=== PATIENT | female | born 1965 | race Caucasian/White ===

== ENCOUNTER 2024-06-29 12:32 | Outpatient (POV) | payer MEDICARE, SELFPAY ==
[2024-06-29 12:55] VITALS: BP 115/60; PULSE 75; RESP 18; O2SAT 99; BMI 28.3
--- NOTE | 2024-06-29 14:09 | EXP.PAIN.OV ---
HPI Data of Consult Patient: new to practice Consult date: 06/29/24 Requesting Physician: Sandra Gauthier APRN Primary Care Provider: Marge Woodard MD Consult Narrative Reason for consult: Left ankle/foot pain History of present illness: Ms. Antoine is a 59 year old female who presents today as a new patient. She is a referral from Marge Ba's office. Today she rates her pain a 7 out of 10. Patient states this pain has been going on for about a year and a half related to an injury that she suffered. Patient states that she has a history of seizures and during one of her seizures she ended up having a fall that fracture at the left ankle. She states that she ended up having to have surgery and had hardware placed however it never felt right from that time on. Patient states that her foot was completely numb. She states over time it really seem that the hardware was very painful as well as that it was actually working its way outward. She states about 7 to 8 months ago she ended up having the hardware removed and it is just now all officially closed up on the lateral side. Patient states the pain is a constant cold numbing shocklike sensation that affects her ankle and her entire foot. She states that it is completely numb and that the pain is affecting every activity of daily living such as cooking and cleaning as well as sleeping. Patient states she has tried oral medications, heat and ice, topicals with no additional relief. Patient does not want to have any additional surgery related to this if any way possible. She denies any injection history. Patient states that she has had some physical therapy however it really made no difference. Patient is a type I diabetic. Patient has been taking pregabalin and states that she just had this increased to twice a day and it does at least help sleep a little bit better. Her Yazan has been reviewed and is appropriate. CC: Sandra Gauthier APRN [facility] Disclaimer: The information contained in this section may have been updated after the patient was seen, as this information can be updated by other users. Medical History (Updated 06/29/24 @ 14:13 by Sandra Gauthier APRN) Carpal tunnel syndrome HLD (hyperlipidemia) Vitamin D deficiency Bipolar disorder HTN (hypertension) Diabetes Mitral valve regurgitation Mitral valve disease Lung cancer CHF (congestive heart failure) Congestive cardiomyopathy Seizures Insomnia Anxiety Surgical History (Updated 06/29/24 @ 13:25 by Kathi Weaver RN) History of left knee replacement History of bronchoscopy H/O hernia repair H/O: hysterectomy History of bilateral fallopian tube excision History of ankle surgery Family History (Updated 06/29/24 @ 13:23 by Kathi Weaver RN) Other Alcoholism Anxiety Arthritis Bipolar disorder Bone cancer Cataracts, bilateral Depression GERD (gastroesophageal reflux disease) Gout Heart attack Hypertension Pulmonary emphysema Skin cancer Substance abuse Social History (Updated 06/29/24 @ 13:48 by Kathi Weaver RN) Smoking Status: Current every day smoker alcohol intake: never current occupational status: unemployed Travel in the last 8 weeks: None Contact w/someone who lives/traveled outside [place] past 30 days?: No Exposure to someone with infectious disease in past 14 days?: No Do you have a fever (greater than 100.4 F or 38 C)?: No Have you tested positive for COVID-19: No Exposed to someone with COVID-19 in past 14 days?: No Do you have a sore throat?: No Do you have a cough?: No Do you have any weakness?: No Are you experiencing any nausea/vomitting?: No Do you have any diarrhea?: No Are you experiencing any unusual bleeding?: No Do you have any muscle aches/pain?: No Do you have any abdominal pain?: No Are you experiencing loss of taste or smell?: No Review of Systems Review of Systems Review of systems:: pertinent systems reviewed and negative unless documented below Review of systems (narrative): Review of Systems: General: No recent weight changes, no fever, no sleep disturbances Respiratory: No cough, no shortness of air, no recurring pulmonary infections Cardiovascular/peripheral vascular: No chest pain, no palpitations, no edema, no shortness of breath Gastrointestinal: No new onset incontinence, normal bowel movements reported Genitourinary: No new onset incontinence Musculoskeletal: Left ankle/foot pain Psychiatric: [Normal mood/affect] Neurological: [Denies weakness in extremities], [denies balance issues] Meds Home Medications and Allergies New Prescriptions to Start Prescriptions: Allergies Allergy/AdvReac Type Severity Reaction Status Date / Time acetaminophen Allergy Rash Verified 06/29/24 14:11 hydrocodone Allergy Rash Verified 06/29/24 14:11 risperidone Allergy Unknown Verified 06/29/24 14:11 allergy reaction bupropion AdvReac Seizure Verified 06/29/24 14:11 venlafaxine AdvReac Seizure Verified 06/29/24 14:11 NIACIN Allergy Unknown Unknown Uncoded 06/29/24 14:11 allergy reaction SULFA (SULFONAMIDE) Allergy Unknown Unknown Uncoded 06/29/24 14:11 allergy reaction Objective Vital signs: Pulse Resp BP Pulse Ox O2 Del Method 75 18 115/60 99 Room Air 06/29/24 12:55 06/29/24 12:55 06/29/24 12:55 06/29/24 12:55 06/29/24 12:55 Narrative: Physical Exam: General: Alert and oriented x3, no acute distress, pleasant and cooperative Lungs: Respirations even and unlabored, symmetrical chest expansion Eyes: PERRL Musculoskeletal: Flexion and extension of left ankle somewhat guarded secondary to pain, [antalgic gait noted] decreased sensation to light touch and decreased reflexes Neurological: Speech clear, no gross sensory deficit Skin: Foot is cool to touch in comparison to the right foot Assessment and Plan *Assessment and plan (1) Left ankle pain: Status: Acute Category: Medical Code(s): M25.572 - Pain in left ankle and joints of left foot (2) Numbness of left foot: Status: Acute Category: Medical Code(s): R20.0 - Anesthesia of skin Plan Patient is experiencing significant pain in her left ankle and foot with limited range of motion. Patient did have decreased sensation light touch and decreased reflexes. Patient's left foot was also cooler in comparison to her right foot. Patient may have symptoms consistent with CRPS of the lower extremity related to an injury and then surgeries thereafter. I did discuss with patient that I do believe she would benefit from a posterior tibial nerve block on this joint. Risk and benefits were discussed with the patient and she would like to proceed forward with this plan of care. Patient has tried and failed conservative therapy including continued at home stretching exercise for longer than 12 weeks. I will also order the patient a compounded cream. Patient will be scheduled for a left posterior tibial nerve block. Patient has been instructed to contact the clinic with any concerns before the next appointment. Dr. Rosas has reviewed this note and agrees with this plan of care. This note was dictated using voice recognition software and make contain errors or omissions. All injections are used with Lidocaine, Bupivacaine and Depo Medrol. Occasionally urine drug screen is needed to verify patient's compliance with our office pain contract. This is ordered based off specific treatments related to chronic pain with the potential to abuse certain medications.
== END 2024-06-29 23:59 | disposition home or self-care (01) ==
PROVIDERS: PCP Family Medicine; Visit Provider Nurse Practitioner Family
DX: M25.572 Pain in left ankle and joints of left foot (principal); R20.0 Anesthesia of skin; Z73.89 Other problems related to life management difficulty; Z96.652 Presence of left artificial knee joint; F17.210 Nicotine dependence, cigarettes, uncomplicated
CPT/HCPCS: 99202; G0463

== ENCOUNTER 2024-07-10 10:52 | Day surgery (SDC) | payer MEDICARE, SELFPAY ==
[2024-07-10 11:14] VITALS: BP 100/67; PULSE 85; RESP 16; TEMP 36.8; O2SAT 100; BMI 27.8
[2024-07-10 11:37] VITALS: BP 101/47; PULSE 76; RESP 16; TEMP 36.8; O2SAT 100
--- NOTE | 2024-07-10 11:37 | EXP.PAIN.PRO ---
Procedure Date: 07/10/24 Time: 11:00 Anesthesiologist:: Zafar Mckay CRNA Complications:: None Pre-procedure Diagnosis:: Chronic left ankle/foot pain. Post-procedure Diagnosis:: Same Indications for Procedure:: Patient is a pleasant 59-year-old female who comes to our clinic today for left posterior tibial nerve block. Patient reports left lateral malleus area is numb and tingly. Also, pain in the dorsum of the left foot. Pain in the plantar area of the left foot. Patient is status post ankle fracture and subsequent hardware removal 7 to 8 months ago. She rates her pain 7/10. Procedure Details:: Details of the procedure explained to the patient. The patient taken procedure room placed in sitting position. The area over the left posterior malleus area was cleaned using chlorhexidine as a cleansing solution. Using a 25-gauge inch and half needle the left posterior tibial nerve was accessed with ease. After negative aspiration 5 cc of 1% lidocaine and 40 mg of Depo-Medrol was injected. Patient tolerated procedure without difficulty. No complications. Plan and Disposition:: Patient was discharged without incident.
[2024-07-10 11:45] VITALS: BP 100/60; PULSE 68; RESP 18; O2SAT 99
[2024-07-10] MEDS: methylPREDNISolone ACETATE 80MG/ML VIAL 80 MG (11:45)
[2024-07-10] MEDS: BUPIVACAINE 0.25% 10ML INJ 25 MG IJ (11:45)
[2024-07-10] MEDS: LIDOCAINE 1% 5ML PF VIAL 5 ML (11:45)
[2024-07-10 11:46] VITALS: BP 100/60; PULSE 68; RESP 18; O2SAT 99
== END 2024-07-10 11:37 | disposition home or self-care (01) ==
PROVIDERS: PCP Family Medicine; Visit Provider Nurse Anesthetist, Certified Registered
DX: M25.572 Pain in left ankle and joints of left foot (principal); G89.29 Other chronic pain
CPT/HCPCS: 64450; J1010

== ENCOUNTER 2024-07-30 11:15 | Outpatient (POV) | payer MEDICARE, SELFPAY ==
[2024-07-30 11:31] VITALS: BP 121/72; PULSE 94; RESP 14; O2SAT 96; BMI 27.4
--- NOTE | 2024-07-30 11:39 | A.OFFVIS_ITS ---
[facility] Disclaimer: The information contained in this section may have been updated after the patient was seen, as this information can be updated by other users. Medical History (Updated 07/30/24 @ 11:42 by Sandra Gauthier APRN) Carpal tunnel syndrome HLD (hyperlipidemia) Vitamin D deficiency Bipolar disorder HTN (hypertension) Diabetes Mitral valve regurgitation Mitral valve disease Lung cancer CHF (congestive heart failure) Congestive cardiomyopathy Seizures Insomnia Anxiety Surgical History History of left knee replacement History of bronchoscopy H/O hernia repair H/O: hysterectomy History of bilateral fallopian tube excision History of ankle surgery Family History Other Alcoholism Anxiety Arthritis Bipolar disorder Bone cancer Cataracts, bilateral Depression GERD (gastroesophageal reflux disease) Gout Heart attack Hypertension Pulmonary emphysema Skin cancer Substance abuse Social History Smoking Status: Current every day smoker alcohol intake: never current occupational status: other Travel in the last 8 weeks: None PM Subjective & Objective Subjective Subjective:: Patient is a pleasant 59-year-old female who presents today for follow-up of left posterior tibial nerve block on 07/10/2024. Today she rates her pain a 7 out of 10. She denies any new trauma or injury. She does state that she did notice at least 60% improvements following this injection and felt like it did help for about a week. Patient states she was able to decrease down some of her oral medications during that timeframe however states that she is back to her baseline today. Patient does state that when she has been up on her feet for longer than 20 to 30 minutes she does have low back pain and is still complaining about the numbness down into the left foot. Patient denies any prior injections in her back. She states the pain is constant and does interfere with her ability perform activities of daily living such as cooking and cleaning. Patient states that she cannot be up for very long due to the worsening symptoms. Patient has had conservative treatment including physical therapy with no additional changes. Patient is currently prescribed pregabalin from an outside provider. Patient states she is willing to try anything. She states the compounded cream we ordered was not covered. Her Yazan has been reviewed and is appropriate. Review of Systems: General: No recent weight changes, no fever, no sleep disturbances Respiratory: No cough, no shortness of air, no recurring pulmonary infections Cardiovascular/peripheral vascular: No chest pain, no palpitations, no edema, no shortness of breath Gastrointestinal: No new onset incontinence, normal bowel movements reported Genitourinary: No new onset incontinence Musculoskeletal: Low back pain, left foot numbness tingling Psychiatric: [Normal mood/affect] Neurological: [Denies weakness in extremities], [denies balance issues] Pain at rest (0-10 scale): 7 Objective Objective:: Physical Exam: General: Alert and oriented x3, no acute distress, pleasant and cooperative Lungs: Respirations even and unlabored, symmetrical chest expansion Eyes: PERRL Musculoskeletal: Flexion and extension of lumbar [spine] somewhat guarded seco ndary to pain, [antalgic gait noted] positive leg raise Neurological: Speech clear, no gross sensory deficit Has patient had previous pain injection?: Yes Percent improvement in pain since last injection: 60% Conservative treatment options previously tried: Home exercise plan Length of treatment: Longer than 12 weeks Meds Home Medications and Allergies Home Medications ?Medication ?Instructions ?Recorded ?Confirmed ?Type atorvastatin 40 mg tablet 40 mg PO DAILY Cholesterol 06/29/24 07/30/24 History bisoprolol fumarate 5 mg tablet 5 mg PO DAILY BLOOD PRESSURE 06/29/24 07/30/24 History folic acid 1 mg tablet 1 mg PO DAILY SUPPLIMENT 06/29/24 07/30/24 History metformin 500 mg tablet 500 mg PO BID Diabetes 06/29/24 07/30/24 History pregabalin 50 mg capsule 50 mg PO BID Pain 06/29/24 07/30/24 History quetiapine 200 mg tablet 200 mg PO DAILY . 06/29/24 07/30/24 History ropinirole 5 mg tablet 5 mg PO DAILY RESTLESS LEGS 06/29/24 07/30/24 History sacubitril 24 mg-valsartan 26 mg 1 tab PO BID Heart Failure 06/29/24 07/30/24 History tablet (Entresto) tiotropium bromide 18 mcg capsule 1 cap inhalation DAILY Breathing 06/29/24 07/30/24 History with inhalation device (Spiriva Problems with HandiHaler) zonisamide 100 mg capsule 200 mg PO DAILY SEIZURES 06/29/24 07/30/24 History New Prescriptions to Start Prescriptions: Allergies Allergy/AdvReac Type Severity Reaction Status Date / Time acetaminophen Allergy Rash Verified 07/10/24 11:15 hydrocodone Allergy Rash Verified 07/10/24 11:15 niacin Allergy Unknown Verified 07/20/24 10:02 allergy reaction risperidone Allergy Unknown Verified 07/10/24 11:15 allergy reaction Sulfa (Sulfonamide Allergy Unknown Verified 07/20/24 10:02 Antibiotics) allergy reaction bupropion AdvReac Seizure Verified 07/10/24 11:15 venlafaxine AdvReac Seizure Verified 07/10/24 11:15 Assessment and Plan *Assessment and plan (1) Low back pain: Status: Acute Category: Medical Code(s): M54.50 - Low back pain, unspecified (2) Lumbar radiculopathy: Status: Acute Category: Medical Code(s): M54.16 - Radiculopathy, lumbar region (3) Numbness of left foot: Status: Acute Category: Medical Code(s): R20.0 - Anesthesia of skin (4) Left ankle pain: Status: Acute Category: Medical Code(s): M25.572 - Pain in left ankle and joints of left foot Plan Patient is experiencing worsening pain in her low back with numbness and tingling into her lower extremities. Patient did have limited range of motion of her lumbar spine with a positive leg raise. I did discuss with patient that I do believe they would benefit from a lumbar epidural steroid injection. Risk and benefits were discussed with patient and the patient would like to proceed forward with this plan of care. Patient is not on any blood thinners. Patient has tried and failed conservative therapy including continued at home stretching exercise for longer than 12 weeks between injections. Patient has not had any lumbar epidurals. I did discuss with the patient in future it may be beneficial for us to do an EMG test along the left side as well. We will follow-up with this in future. We will schedule the patient for an LESI L5-S1 under fluoroscopy. Patient has been instructed to contact the clinic with any concerns before the next appointment. Dr. Rosas has reviewed this note and agrees with this plan of care. This note was dictated using voice recognition software and make contain errors or omissions. All injections are used with Lidocaine, Bupivacaine and Depo Medrol. Occasionally urine drug screen is needed to verify patient's compliance with our office pain contract. This is ordered based off specific treatments related to chronic pain with the potential to abuse certain medications.
== END 2024-07-30 23:59 | disposition home or self-care (01) ==
LOC: SC.PAIN 11:16
PROVIDERS: PCP Family Medicine; Visit Provider Nurse Practitioner Family
DX: M54.50 Low back pain, unspecified (principal); M54.16 Radiculopathy, lumbar region; R20.0 Anesthesia of skin; M25.572 Pain in left ankle and joints of left foot; Z96.652 Presence of left artificial knee joint; F17.210 Nicotine dependence, cigarettes, uncomplicated; Z73.89 Other problems related to life management difficulty
CPT/HCPCS: 99212; G0463

== ENCOUNTER 2024-08-21 09:50 | Day surgery (SDC) | payer MEDICARE, SELFPAY ==
[2024-08-21 10:09] VITALS: BP 103/53; PULSE 87; RESP 16; TEMP 36.8; O2SAT 98; BMI 26.9
[2024-08-21 10:14] VITALS: BP 99/55; PULSE 88; RESP 18; O2SAT 98
[2024-08-21] MEDS: methylPREDNISolone ACETATE 80MG/ML VIAL 80 MG (10:14)
[2024-08-21 10:15] VITALS: BP 99/55; PULSE 87; RESP 18; O2SAT 98
--- NOTE | 2024-08-21 10:15 | EXP.PAIN.PRO ---
Procedure Date: 08/21/24 Time: 09:30 Anesthesiologist:: Zafar Mckay CRNA Complications:: None Pre-procedure Diagnosis:: Degenerative disc lumbar spine multilevels. Lumbar radiculopathy. Lumbar disc bulge L5-S1. Post-procedure Diagnosis:: Same. Indications for Procedure:: Patient is a pleasant 59-year-old female who comes our clinic today for lumbar epidural steroid injection at L5-S1 level. Patient describes low lumbar back pain as well as bilateral hip and leg radicular symptoms. She rates her pain 6/10. Procedure Details:: Procedure: Lumbar epidural steroid injection under fluoroscopy Informed consent was obtained and the risks and benefits of the procedure were explained to the patient. The patient was taken to the procedure room and noninvasive monitors placed, including noninvasive blood pressure cuff and pulse oximeter. The back was viewed using C-arm Fluoroscopy and prepped using Chloraprep as a cleansing solution and the L5-S1 interspace was palpated. Skin and subcutaneous tissues were anesthetized using lidocaine 1.5% and a 25-gauge needle. After this, an 18-gauge Touhy epidural needle was placed into the L5-S1 interspace and advanced using fluoroscopic guidance and loss of resistance to air until the epidural space was encountered. After confirmation of needle placement in the epidural space, with dye, a solution containing normal saline, 3 mL and Depo-Medrol 80 mg were incrementally injected into the lumbar epidural space. The patient tolerated the procedure well with no complications. The patient was observed in the Pain Clinic and then discharged home neurologically intact. Plan and Disposition:: Patient was discharged without incident.
[2024-08-21 10:22] VITALS: BP 100/51; PULSE 83; RESP 16; O2SAT 96
== END 2024-08-21 10:22 | disposition home or self-care (01) ==
PROVIDERS: PCP Family Medicine; Visit Provider Nurse Anesthetist, Certified Registered
DX: M51.16 Intervertebral disc disorders with radiculopathy, lumbar region (principal)
CPT/HCPCS: 62323; J1010

== ENCOUNTER 2024-09-17 14:12 | Outpatient (POV) | payer MEDICARE, SELFPAY ==
[2024-09-17 14:38] VITALS: BP 114/52; PULSE 85; RESP 14; O2SAT 98
--- NOTE | 2024-09-17 15:04 | EXP.PAIN.SOA ---
[facility] Disclaimer: The information contained in this section may have been updated after the patient was seen, as this information can be updated by other users. Medical History Carpal tunnel syndrome HLD (hyperlipidemia) Vitamin D deficiency Bipolar disorder HTN (hypertension) Diabetes Mitral valve regurgitation Mitral valve disease Lung cancer CHF (congestive heart failure) Congestive cardiomyopathy Seizures Insomnia Anxiety Surgical History History of left knee replacement History of bronchoscopy H/O hernia repair H/O: hysterectomy History of bilateral fallopian tube excision History of ankle surgery Family History Other Alcoholism Anxiety Arthritis Bipolar disorder Bone cancer Cataracts, bilateral Depression GERD (gastroesophageal reflux disease) Gout Heart attack Hypertension Pulmonary emphysema Skin cancer Substance abuse Social History Smoking Status: Current every day smoker alcohol intake: never current occupational status: other Travel in the last 8 weeks: None PM Subjective & Objective Subjective Subjective:: Patient is a pleasant 59-year-old female who presents today for follow-up of her lumbar epidural steroid injection L5-S1 on 08/21/2024. Today she rates her pain a 7 out of 10. She does state that she had about 60% improvement from this injection however felt like it is already worn off. Patient does state that she has also had a fall between her last visit. Patient states it was about 2 weeks ago and that she had a seizure causing her to fall back and hit her left arm and it was all nice and bruised. Patient states that this may have aggravated her overall symptoms. Patient does state that she felt like this injection did do much better than the tibial nerve block that she had previously. Patient denies any other changes. She does state that she has had seizures for most of her life however she did have about 25 years where they were very minimal however then when she ended up getting diagnosed with lung cancer that seemed to really flareup all the episodes. Patient is being seen by [facility] for her seizures. Her Yazan has been reviewed and is appropriate. Review of Systems: General: No recent weight changes, no fever, no sleep disturbances Respiratory: No cough, no shortness of air, no recurring pulmonary infections Cardiovascular/peripheral vascular: No chest pain, no palpitations, no edema, no shortness of breath Gastrointestinal: No new onset incontinence, normal bowel movements reported Genitourinary: No new onset incontinence Musculoskeletal: Low back pain, left leg pain Psychiatric: [Normal mood/affect] Neurological: [Denies weakness in extremities], [denies balance issues] Pain at rest (0-10 scale): 7 Objective Objective:: Physical Exam: General: Alert and oriented x3, no acute distress, pleasant and cooperative Lungs: Respirations even and unlabored, symmetrical chest expansion Eyes: PERRL Musculoskeletal: Flexion and extension of lumbar [spine] somewhat guarded secondary to pain, [antalgic gait noted] Neurological: Speech clear, no gross sensory deficit Has patient had previous pain injection?: Yes Percent improvement in pain since last injection: 60% Conservative treatment options previously tried: Home exercise plan Length of treatment: Longer than 12 weeks Meds Home Medications and Allergies Home Medications ?Medication ?Instructions ?Recorded ?Confirmed ?Type atorvastatin 40 mg tablet 40 mg PO DAILY Cholesterol 06/29/24 09/17/24 History bisoprolol fumarate 5 mg tablet 5 mg PO DAILY BLOOD PRESSURE 06/29/24 09/17/24 History folic acid 1 mg tablet 1 mg PO DAILY SUPPLIMENT 06/29/24 09/17/24 History metformin 500 mg tablet 500 mg PO BID Diabetes 06/29/24 09/17/24 History pregabalin 50 mg capsule 50 mg PO BID Pain 06/29/24 09/17/24 History quetiapine 200 mg tablet 200 mg PO DAILY . 06/29/24 09/17/24 History ropinirole 5 mg tablet 5 mg PO DAILY RESTLESS LEGS 06/29/24 09/17/24 History sacubitril 24 mg-valsartan 26 mg 1 tab PO BID Heart Failure 06/29/24 09/17/24 History tablet (Entresto) tiotropium bromide 18 mcg capsule 1 cap inhalation DAILY Breathing 06/29/24 09/17/24 History with inhalation device (Spiriva Problems with HandiHaler) zonisamide 100 mg capsule 200 mg PO DAILY SEIZURES 06/29/24 09/17/24 History New Prescriptions to Start Prescriptions: Allergies Allergy/AdvReac Type Severity Reaction Status Date / Time acetaminophen Allergy Rash Verified 08/21/24 10:10 hydrocodone Allergy Rash Verified 08/21/24 10:10 niacin Allergy Unknown Verified 08/21/24 10:10 allergy reaction risperidone Allergy Unknown Verified 08/21/24 10:10 allergy reaction Sulfa (Sulfonamide Allergy Unknown Verified 08/21/24 10:10 Antibiotics) allergy reaction bupropion AdvReac Seizure Verified 08/21/24 10:10 venlafaxine AdvReac Seizure Verified 08/21/24 10:10 Assessment and Plan *Assessment and plan (1) Lumbar radiculopathy: Status: Acute Category: Medical Code(s): M54.16 - Radiculopathy, lumbar region (2) Low back pain: Status: Acute Category: Medical Code(s): M54.50 - Low back pain, unspecified (3) Numbness of left foot: Status: Acute Category: Medical Code(s): R20.0 - Anesthesia of skin (4) Left ankle pain: Status: Acute Category: Medical Code(s): M25.572 - Pain in left ankle and joints of left foot Plan Patient did have significant improvement however it was short-term with this injection. I did discuss with patient in future she may do better with a repeat lumbar epidural however we would not repeat this until closer to October. Patient acknowledges understanding. I will send in a 2-week dose of tizanidine 4 mg 3 times a day as needed. Patient will return to clinic in 2 weeks for reevaluation of symptoms and plan of care. Patient has been instructed to contact the clinic with any concerns before the next appointment. Dr. Rosas has reviewed this note and agrees with this plan of care. This note was dictated using voice recognition software and make contain errors or omissions. All injections are used with Lidocaine, Bupivacaine and Depo Medrol. Occasionally urine drug screen is needed to verify patient's compliance with our office pain contract. This is ordered based off specific treatments related to chronic pain with the potential to abuse certain medications.
== END 2024-09-17 23:59 | disposition home or self-care (01) ==
PROVIDERS: PCP Family Medicine; Visit Provider Nurse Practitioner Family
DX: M54.16 Radiculopathy, lumbar region (principal); M54.50 Low back pain, unspecified; R20.0 Anesthesia of skin; M25.572 Pain in left ankle and joints of left foot; Z96.652 Presence of left artificial knee joint; F17.200 Nicotine dependence, unspecified, uncomplicated
CPT/HCPCS: 99212; G0463

== ENCOUNTER 2024-10-01 08:33 | Outpatient (POV) | payer MEDICARE, SELFPAY ==
--- OUTSIDE RECORDS SUMMARY | 2024-10-01 08:37 | XMS_ITS | Data Portability ---
Author Organization [facility] [place] LEENA ADMIN Address [address] [place] [id number] Care Team Providers Care Railway Signal Electrician Name Role Phone KATH WANG Primary Care Provider [phone] MIGEL BULLOCK Engineering Manager [phone] DAVID ZIEGLER Engineering Manager TRACY THOMPSON Radiation Oncologist [phone] [facility] Hematology/Onco logy Assessment No assessment recorded. Plan of Treatment Reminders Order Date Submit Date Provider Last Modified By Organization Details Last Modified Time Details Appointments FOLLOW UP 30 2024 10:30A M SHOLA MAY NP Not available Not available Not available Lab CMP, serum or plasma 2023 024 JOSE MANUEL [facility]), [facility] [place] [address] [address] [place], [address], 04/23/2024 12:16:30 CBC w/ auto diff 2023 024 JOSE MANUEL [facility]( [facility]), [place] [address] [place], [address], 04/23/2024 11:55:22 CMP, serum or plasma 2023 024 [email or web address] [facility]( [facility]), [facility] [place] [address] [address] [place], [address], 10/25/2023 15:52:37 CBC w/ auto diff 2023 024 [email or web address] [facility]( [facility]), [address], [place], [address], 10/25/2023 15:52:37 iron + TIBC + ferritin, serum [address] (Registration ), [place], [address], 04/25/2023 09:53:54 iron saturatio n, serum or plasma [address] (Registration ), [address], [place], [address], 04/25/2023 09:53:54 noninvasi ve colorecta l cancer DNA + occult blood screening , QL, stool [address] (Registration ), [place], [address], 04/25/2023 09:53:54 CMP, serum or plasma 2022 023 [facility]( Lab), [place], [address], 04/18/2023 11:15:30 CBC w/ auto diff 2022 023 [facility]( Lab), [place] [address] [place], [address], 04/18/2023 10:39:52 Referral None recorded. Procedures None recorded. Surgeries None recorded. Imaging CT, chest, w/ contrast [facility]23 [facility] [place], [address], 07/17/2024 12:22:18 CT, chest, w/ contrast 2023 024 JOSE MANUEL [facility] (Centralized Scheduling), [place] [address] [place], [address], 11/21/2023 09:51:09 XR, ankle, 3 or more view - S/P fall, left ankle pain. X ray of left ankle. 2022 023 [email or web address] [facility] (Centralized Scheduling), [place] [address] [place], [address], 06/22/2023 09:50:56 CT, chest, w/ contrast - Please schedule prior to clinic follow-up on 3. 2022 024 JESSIE [facility] (Centralized Scheduling), [place] [address] [place], [address], 10/17/2023 03:25:11 Medication Orders Breo Ellipta 200 mcg-25 mcg/dose powder for inhalatio n 2023 024 5 [facility], [address] [place], [address], 10/25/2023 14:40:18 Patient TargetsNo targets recorded. Patient Instructions Encounter Date Encounter Id Patient Instructions Last Modified By Organization Details Last Modified Time 08/01/2023 [id number] Continue Advair 250 or Breo 200, Incruse, albuterol or albuterol nebs q4hr prn. Tobacco cessation. Follow-up with Oncology office/[facility] Hematology-Oncolo gy for all CT scans chest, abdomen/ pelvis etc, as she has been doing. Continue Advair 250 one puff bid with Incruse one puff daily or Trelegy 200 one puff daily. 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 Her Cardiology she states is Dr. Gaffney. She has an appointment with Oncology in September [address] of the chest. Return to clinic October 2023. [email or web address] Not available 08/01/2023 10:35:26 Reason for Referral None Reported. Results Created Date Observation Date Name Description Value Unit Range Abnormal Flag Note LastModifiedBy Organization Detail LastModifiedTime 03/29/2003/29/2023 CREAT ININE W/GFR note SEE NOTE Order ing Provi kathia: Aniyah wyman MD Not Available [address] , [place], [address], 03/29/2023 09:10:25 03/29/2003/29/2023 CREAT ININE W/GFR creatinine 0.72 mg/dL 0.55-1 .02 normal Not Available [address] , [place], [address], 03/29/2023 09:10:25 03/29/2003/29/2023 CREAT ININE W/GFR GFR (estimated) 97 mL/mi n >60 normal [IM JESSENIA NT]: The 2020 CKD-E PI equat ion is now the recom ashley d stand omaira. This versi on does not inclu de race, as do the 2008 and 2011 CKD-E PI creat inine and creat inine -cyst atin C equat ions. Radha e note that the eGFR now repor zeyad is gener ated by the new 2020 CKD-E PI equat ion, which decre ases the eGFR for black s by up to 10% and incre ases the eGFR for non-b lacks by up to 10% in lakeshia rison to the old equat ion. To lakeshia re a legac y eGFR to a curre nt value , a 2008 CKD-E PI calcu lator is easil y searc hable on the inter net. Calcu lated GFR: This calcu lated GFR is advoc ated by the [facility] ation to be used as an indic ator of Chron ic Kidne y Disea se (CKD) . 5 Stage s of Chron ic Kidne y Disea se. Stage 1 90 mL/mi n or more Healt hy kidne ys or Kidne y damag e with fareed l or high GFR detai ls Stage 2 60 to 89 mL/mi n Kidne y damag e and mild decre ase in GFR detai ls Stage 3 30 to 59 mL/mi n Moder ate decre ase in GFR detai ls Stage 4 15 to 29 mL/mi n Sever e decre ase in GFR detai ls Stage 5 Less than 15 mL/mi n On dialy sis or Kidne y failu re Patie nt's clini laura statu s must be consi dered for the care of your patie nt. Not Available [address] , [place], [address], 03/29/2023 09:10:25 03/29/20 23 03/29/2023 CREAT ININE W/GFR performing lab SEE NOTE - [facility] R [facility] [address] [facility] [address] Not Available [address] , [place], [address], 03/29/2023 09:10:25 04/18/20 23 04/18/2023 CBC W/AUT O DIFFE RENTI AL note SEE NOTE Order ing Provi kathia: Aniyah wyman MD Not Available [address] , [place], [address], 04/18/2023 10:39:52 04/18/20 23 04/18/2023 CBC W/AUT O DIFFE RENTI AL white blood cell 6.1 10e3/ uL 4.5-13 .0 normal Not Available [address] , [place], [address], 04/18/2023 10:39:52 04/18/20 23 04/18/2023 CBC W/AUT O DIFFE RENTI AL red blood cell 3.34 10e6/ uL 3.80-5 .10 low Not Available [address] , [place], [address], 04/18/2023 10:39:52 04/18/20 23 04/18/2023 CBC W/AUT O DIFFE RENTI AL hemoglobin 11.2 g/dL 11.5-1 5.3 low Not Available [address], [place], [address], 04/18/2023 10:39:52 04/18/20 23 04/18/2023 CBC W/AUT O DIFFE RENTI AL hematocrit 30.9 % 34.0-4 6.0 low Not Available [address], [place], [address], 04/18/2023 10:39:52 04/18/20 23 04/18/2023 CBC W/AUT O DIFFE RENTI AL mean cell volume 93 fL 78.0-9 8.0 normal Not Available [address] , [place], [address], 04/18/2023 10:39:52 04/18/20 23 04/18/2023 CBC W/AUT O DIFFE RENTI AL mean cell HGB 33.5 pg 25.0-3 5.0 normal Not Available [address], [place], [address], 04/18/2023 10:39:52 04/18/20 23 04/18/2023 CBC W/AUT O DIFFE RENTI AL mean cell HGB concentratio n 36.2 g/dL 31.0-3 6.0 high Not Available [address] Garcia, [place], [address], 04/18/2023 10:39:52 04/18/20 23 04/18/2023 CBC W/AUT O DIFFE RENTI AL red cell distribution width 13.3 % 11.0-1 5.0 normal Not Available [address] Garcia, [place], [address], 04/18/2023 10:39:52 11/20/04/18/2023 CBC W/AUT O DIFFE RENTI AL platelet count 255 10e3/ uL 150-40 0 normal Not Available [address] Garcia, [place], [address], 04/18/2023 10:39:52 04/18/20 23 04/18/2023 CBC W/AUT O DIFFE RENTI AL immature granulocyte % 0 0-1 normal Not Available [address] Garcia, [place], [address], 04/18/2023 10:39:52 04/18/20 23 04/18/2023 CBC W/AUT O DIFFE RENTI AL neutrophil % 71 % 35-75 normal Not Available [address], [place], [address], 04/18/2023 10:39:52 04/18/20 23 04/18/2023 CBC W/AUT O DIFFE RENTI AL lymphocyte % 18 % 10-50 normal Not Available [address] [place], [place], [address], 04/18/2023 10:39:52 04/18/20 23 04/18/2023 CBC W/AUT O DIFFE RENTI AL monocyte % 9 % 0-15 normal Not Available [address] Garcia, [place], [address], 04/18/2023 10:39:52 04/18/20 23 04/18/2023 CBC W/AUT O DIFFE RENTI AL eosinophil % 1 % 0-5 normal Not Available [address] Garcia, [place], [address], 04/18/2023 10:39:52 04/18/20 23 04/18/2023 CBC W/AUT O DIFFE RENTI AL basophil % 1 % 0-5 normal Not Available [address] Garcia, [place], [address], 04/18/2023 10:39:52 04/18/20 23 04/18/2023 CBC W/AUT O DIFFE RENTI AL immature granulocyte # 0.02 x1000 /uL 0-0.05 normal Not Available [place] [address], [place], [address], 04/18/2023 10:39:52 04/18/20 23 04/18/2023 CBC W/AUT O DIFFE RENTI AL neutrophil # 4.34 x1000 /uL 1.50-8 .00 normal Not Available [place] [address], [place], [address], 04/18/2023 10:39:52 04/18/20 23 04/18/2023 CBC W/AUT O DIFFE RENTI AL lymphocyte # 1.11 x1000 /uL 1.20-5 .20 low Not Available [place] [address], [place], [address], 04/18/2023 10:39:52 04/18/20 23 04/18/2023 CBC W/AUT O DIFFE RENTI AL monocyte # 0.53 x1000 /uL 0.40-0 .90 normal Not Available [place] [address], [place], [address], 04/18/2023 10:39:52 04/18/20 23 04/18/2023 CBC W/AUT O DIFFE RENTI AL eosinophil # 0.07 x1000 /uL 0.00-0 .50 normal Not Available [place] [address], [place], [address], 04/18/2023 10:39:52 04/18/20 23 04/18/2023 CBC W/AUT O DIFFE RENTI AL basophil # 0.03 x1000 /uL 0.00-0 .30 normal Not Available [place] [address], [place], [address], 04/18/2023 10:39:52 04/18/20 23 04/18/2023 CBC W/AUT O DORIS ESTEVES NRBC automated 0.0 /100_ WBC Not Available [address] , [place], [address], 04/18/2023 10:39:52 04/18/20 23 04/18/2023 CBC W/AUT O DORIS ESTEVES performing lab SEE NOTE ML - [facility] [address] [facility] [address] Not Available [address] , [place], [address], 04/18/2023 10:39:52 04/18/20 23 04/18/2023 COMP METAB OLIC PANEL note SEE NOTE Order ing Provi kathia: Aniyah wyman MD Not Available [address] , [place], [address], 04/18/2023 11:15:30 04/18/20 23 04/18/2023 COMP METAB OLIC PANEL sodium 121 mmol/ L 136-14 5 low Not Available [address] , [place], [address], 04/18/2023 11:15:30 04/18/20 23 04/18/2023 COMP METAB OLIC PANEL potassium 4.5 mmol/ L 3.5-5. 1 normal Not Available [address] , [place], [address], 04/18/2023 11:15:30 04/18/20 23 04/18/2023 COMP METAB OLIC PANEL chloride 90 mmol/ L 98-107 low Not Available [address] , [place], [address], 04/18/2023 11:15:30 04/18/20 04/18/2023 COMP METAB OLIC PANEL carbon dioxide 24 mmol/ L 24-33 normal Not Available [address] , [place], [address], 04/18/2023 11:15:30 04/18/20 23 04/18/2023 COMP METAB OLIC PANEL anion gap 11.5 mmol/ L 10-20 normal Not Available [address] , [place], [address], 04/18/2023 11:15:30 04/18/20 23 04/18/2023 COMP METAB OLIC PANEL glucose 100 mg/dL 70-99 high Not Available [address] , [place], [address], 04/18/2023 11:15:30 04/18/20 23 04/18/2023 COMP METAB OLIC PANEL blood urea nitrogen 11 mg/dL 7-18 normal Not Available [address] , [place], [address], 04/18/2023 11:15:30 04/18/20 23 04/18/2023 COMP METAB OLIC PANEL creatinine 0.62 mg/dL 0.55-1 .02 normal Not Available [address] , [place], [address], 04/18/2023 11:15:30 04/18/20 23 04/18/2023 COMP METAB OLIC PANEL GFR (estimated) 103 mL/mi n >60 normal [IM JESSENIA NT]: The 2020 CKD-E PI equat ion is now the recom ashley d stand omaira. This versi on does not inclu de race, as do the 2008 and 2011 CKD-E PI creat inine and creat inine -cyst atin C equat ions. Pleas e note that the eGFR now repor zeyad is gener ated by the new 2020 CKD-E PI equat ion, which decre ases the eGFR for black s by up to 10% and incre ases the eGFR for non-b lacks by up to 10% in lakeshia rison to the old equat ion. To lakeshia re a legac y eGFR to a curre nt value , a 2009 CKD-E PI dwain jainor is easil y isidoro hable on the inter net. Calcu lated GFR: This calcu lated GFR is advoc ated by the [facility] y [employer] ation to be used as an indic ator of Chron ic Kidne y Disea se (CKD) . 5 Stage s of Chron ic Kidne y Disea se. Stage 1 90 mL/mi n or more Healt hy kidne ys or Kidne y damag e with fareed l or high GFR detai ls Stage 2 60 to 89 mL/mi n Kidne y damag e and mild decre ase in GFR detai ls Stage 3 30 to 59 mL/mi n Moder ate decre ase in GFR detai ls Stage 4 15 to 29 mL/mi n Sever e decre ase in GFR detai ls Stage 5 Less than 15 mL/mi n On dialy sis or Kidne y failu re Patie nt's clini laura statu s must be consi dered for the care of your patie nt. Not Available [address] , [place], [address], 04/18/2023 11:15:30 04/18/20 23 04/18/2023 COMP METAB OLIC PANEL BUN/creatini ne ratio 17 12-20 normal Not Available [address] , [place], [address], 04/18/2023 11:15:30 04/18/20 23 04/18/2023 COMP METAB OLIC PANEL total protein 6.9 g/dL 6.4-8. 2 normal Not Available [address] , [place], [address], 04/18/2023 11:15:30 04/18/20 23 04/18/2023 COMP METAB OLIC PANEL albumin 3.5 g/dL 3.4-5. 0 normal Not Available [address] , [place], [address], 04/18/2023 11:15:30 04/18/20 23 04/18/2023 COMP METAB OLIC PANEL globulin 3.4 g/dL 1.5-4. 0 normal Not Available [address] , [place], [address], 04/18/2023 11:15:30 04/18/20 23 04/18/2023 COMP METAB OLIC PANEL albumin/glob ulin ratio 1.0 0.5-2. 0 normal Not Available [address] , [place], [address], 04/18/2023 11:15:30 04/18/20 23 04/18/2023 COMP METAB OLIC PANEL calcium 8.3 mg/dL 8.5-10 .1 low Not Available [address] , [place], [address], 04/18/2023 11:15:30 04/18/20 23 04/18/2023 COMP METAB OLIC PANEL osmolality serum calculated 242 mOsm/ kg 272-28 8 low Not Available [address] , [place], [address], 04/18/2023 11:15:30 04/18/20 23 04/18/2023 COMP METAB OLIC PANEL bilirubin total 0.2 mg/dL 0.2-1. 0 normal Use of this assay is not recom ashley d for patie nts under going treat ment with Eltro mbopa g due to the poten tial for false ly eleva zeyad resul ts. Not Available [address] , [place], [address], 04/18/2023 11:15:30 04/18/20 23 04/18/2023 COMP METAB OLIC PANEL SGOT/AST 18 U/L 15-37 normal Not Available [address] , [place], [address], 04/18/2023 11:15:30 04/18/20 23 04/18/2023 COMP METAB OLIC PANEL SGPT/ALT 26 U/L 14-59 normal Not Available [address] , [place], [address], 04/18/2023 11:15:30 04/18/20 23 04/18/2023 COMP METAB OLIC PANEL alkaline phosphatase total 108 U/L 46-116 normal Not Available [address] , [place], [address], 04/18/2023 11:15:30 04/18/20 23 04/18/2023 COMP METAB OLIC PANEL performing lab SEE NOTE ML - [facility] [address] [facility] [address] Not Available [address] , [place], [address], 04/18/2023 11:15:30 04/18/20 23 04/18/2023 LORRIE TIN note See Note Order ing Provi kathia: Aniyah wyman MD Not Available [address] , [place], [address], 04/18/2023 11:15:32 04/18/20 23 04/18/2023 LORRIE TIN ferritin 75 NG/mL 8-252 normal Not Available [address] , [place], [address], 04/18/2023 11:15:32 04/18/20 23 04/18/2023 LORRIE TIN performing lab see note ML - [facility] [address] [facility] [address] Not Available [address] , [place], [address], 04/18/2023 11:15:32 04/18/20 23 04/18/2023 FE W/TOT AL IRON KATHLEEN NG CAP note See Note Order ing Provi kathia: Aniyah wyman MD Not Available [address] , [place], [address], 04/18/2023 11:27:19 04/18/20 23 04/18/2023 FE W/TOT AL IRON KATHLEEN NG CAP iron 68 ug/dL 50-170 normal Not Available [address] , [place], [address], 04/18/2023 11:27:19 04/18/20 23 04/18/2023 FE W/TOT AL IRON KATHLEEN NG CAP total iron binding capacity 307 ug/dL 260-44 5 normal Not Available [address] , [place], [address], 04/18/2023 11:27:19 04/18/20 23 04/18/2023 FE W/TOT AL IRON KATHLEEN NG CAP iron saturation 22 % 20-50 normal Not Available [address] , [place], [address], 04/18/2023 11:27:19 04/18/20 23 04/18/2023 FE W/TOT AL IRON KATHLEEN NG CAP performing lab see note - [facility] R [address] [facility] [address] [facility] [address] Not Available [address] , [place], [address], 04/18/2023 11:27:19 10/25/19 24 10/25/2023 CBC W/AUT O DIFFE RENTI AL note SEE NOTE Order ing Provi kathia: Frank ling APRN Not Available [address] , [place], [address], 10/25/2023 15:43:19 10/25/19 24 10/25/2023 CBC W/AUT O DIFFE RENTI AL white blood cell 5.7 10e3/ uL 4.5-13 .0 normal Not Available [address], [place], [address], 10/25/2023 15:43:19 10/25/19 24 10/25/2023 CBC W/AUT O DIFFE RENTI AL red blood cell 2.98 10e6/ uL 3.80-5 .10 low Not Available [address], [place], [address], 10/25/2023 15:43:19 10/25/19 24 10/25/2023 CBC W/AUT O DIFFE RENTI AL hemoglobin 9.9 g/dL 11.5-1 5.3 low Not Available [address], [place], [address], 10/25/2023 15:43:19 10/25/19 24 10/25/2023 CBC W/AUT O DIFFE RENTI AL hematocrit 30.2 % 34.0-4 6.0 low Not Available [address], [place], [address], 10/25/2023 15:43:19 10/25/19 24 10/25/2023 CBC W/AUT O DIFFE RENTI AL mean cell volume 101 fL 78.0-9 8.0 high Not Available [address], [place], [address], 10/25/2023 15:43:19 10/25/19 24 10/25/2023 CBC W/AUT O DIFFE RENTI AL mean cell HGB 33.2 pg 25.0-3 5.0 normal Not Available [address], [place], [address], 10/25/2023 15:43:19 10/25/19 24 10/25/2023 CBC W/AUT O DIFFE RENTI AL mean cell HGB concentratio n 32.8 g/dL 31.0-3 6.0 normal Not Available [address] , [place], [address], 10/25/2023 15:43:19 10/25/19 24 10/25/2023 CBC W/AUT O DIFFE RENTI AL red cell distribution width 12.7 % 11.0-1 5.0 normal Not Available [address] , [place], [address], 10/25/2023 15:43:19 10/25/19 24 10/25/2023 CBC W/AUT O DIFFE RENTI AL platelet count 200 10e3/ uL 150-40 0 normal Not Available [address] [address], [place], [address], 10/25/2023 15:43:19 10/25/19 24 10/25/2023 CBC W/AUT O DIFFE RENTI AL immature granulocyte % 0 0-1 normal Not Available [address], [place], [address], 10/25/2023 15:43:19 10/25/19 24 10/25/2023 CBC W/AUT O DIFFE RENTI AL neutrophil % 66 % 35-75 normal Not Available [address] , [place], [address], 10/25/2023 15:43:19 10/25/19 24 10/25/2023 CBC W/AUT O DIFFE RENTI AL lymphocyte % 24 % 10-50 normal Not Available [address] , [place], [address], 10/25/2023 15:43:19 10/25/19 24 10/25/2023 CBC W/AUT O DIFFE RENTI AL monocyte % 8 % 0-15 normal Not Available [address] , [place], [address], 10/25/2023 15:43:19 10/25/19 24 10/25/2023 CBC W/AUT O DIFFE RENTI AL eosinophil % 2 % 0-5 normal Not Available [address], [place], [address], 10/25/2023 15:43:19 10/25/19 24 10/25/2023 CBC W/AUT O DIFFE RENTI AL basophil % 1 % 0-5 normal Not Available [address] , [place], [address], 10/25/2023 15:43:19 10/25/19 24 10/25/2023 CBC W/AUT O DIFFE RENTI AL immature granulocyte # 0.02 x1000 /uL 0-0.05 normal Not Available [address], [place], [address], 10/25/2023 15:43:19 10/25/19 24 10/25/2023 CBC W/AUT O DIFFE RENTI AL neutrophil # 3.75 x1000 /uL 1.50-8 .00 normal Not Available [address], [place], [address], 10/25/2023 15:43:19 10/25/19 24 10/25/2023 CBC W/AUT O DIFFE RENTI AL lymphocyte # 1.34 x1000 /uL 1.20-5 .20 normal Not Available [address], [place], [address], 10/25/2023 15:43:19 10/25/19 24 10/25/2023 CBC W/AUT O DIFFE RENTI AL monocyte # 0.47 x1000 /uL 0.40-0 .90 normal Not Available [address] , [place], [address], 10/25/2023 15:43:19 10/25/19 24 10/25/2023 CBC W/AUT O DIFFE RENTI AL eosinophil # 0.09 x1000 /uL 0.00-0 .50 normal Not Available [address] , [place], [address], 10/25/2023 15:43:19 10/25/19 24 10/25/2023 CBC W/AUT O DIFFE RENTI AL basophil # 0.03 x1000 /uL 0.00-0 .30 normal Not Available [address] , [place], [address], 10/25/2023 15:43:19 10/25/19 24 10/25/2023 CBC W/AUT O DIFFE RENTI AL NRBC automated 0.0 /100_ WBC Not Available [address] , [place], [address], 10/25/2023 15:43:19 10/25/19 24 10/25/2023 CBC W/AUT O DIFFE RENTI AL performing lab SEE NOTE - [address] [facility] [address] Not Available [address] , [place], [address], 10/25/2023 15:43:19 10/25/19 24 10/25/2023 COMP METAB OLIC PANEL note SEE NOTE Order ing Provi kathia: Frank ling APRN Not Available [address] , [place], [address], 10/25/2023 15:51:39 10/25/19 24 10/25/2023 COMP METAB OLIC PANEL sodium 142 mmol/ L 136-14 5 normal Not Available [address], [place], [address], 10/25/2023 15:51:39 10/25/19 24 10/25/2023 COMP METAB OLIC PANEL potassium 3.9 mmol/ L 3.5-5. 1 normal Not Available [address] [address], [place], [address], 10/25/2023 15:51:39 10/25/19 24 10/25/2023 COMP METAB OLIC PANEL chloride 109 mmol/ L 98-107 high Not Available [address], [place], [address], 10/25/2023 15:51:39 10/25/19 24 10/25/2023 COMP METAB OLIC PANEL carbon dioxide 25 mmol/ L 24-33 normal Not Available [address], [place], [address], 10/25/2023 15:51:39 10/25/19 24 10/25/2023 COMP METAB OLIC PANEL anion gap 11.9 mmol/ L 10-20 normal Not Available [address], [place], [address], 10/25/2023 15:51:39 10/25/19 24 10/25/2023 COMP METAB OLIC PANEL glucose 148 mg/dL 70-99 high Not Available [address], [place], [address], 10/25/2023 15:51:39 10/25/19 24 10/25/2023 COMP METAB OLIC PANEL blood urea nitrogen 15 mg/dL 7-18 normal Not Available [address] [place], [place], [address], 10/25/2023 15:51:39 10/25/19 24 10/25/2023 COMP METAB OLIC PANEL creatinine 0.86 mg/dL 0.55-1 .02 normal Not Available [address] , [place], [address], 10/25/2023 15:51:39 10/25/19 24 10/25/2023 COMP METAB OLIC PANEL GFR (estimated) 78 mL/mi n >60 normal [IM JESSENIA NT]: The 2020 CKD-E PI equat ion is now the recom ashley d stand moaira. This versi on does not inclu de race, as do the 2008 and 2011 CKD-E PI creat inine and creat inine -cyst atin C equat ions. Radha e note that the eGFR now repor zeyad is gener ated by the new 2020 CKD-E PI equat ion, which decre ases the eGFR for black s by up to 10% and incre ases the eGFR for non-b lacks by up to 10% in [place] to the old equat ion. To [place] re a legac y eGFR to a curre nt value , a 2008 CKD-E PI calcu lator is easil y searc hable on the inter net. Calcu lated GFR: This calcu lated GFR is advoc ated by the [facility] to be used as an indic ator of Chron ic Kidne y Disea se (CKD) . 5 Stage s of Chron ic Kidne y Disea se. Stage 1 90 mL/mi n or more Healt hy kidne ys or Kidne y damag e with fareed l or high GFR detai ls Stage 2 60 to 89 mL/mi n Kidne y damag e and mild decre ase in GFR detai ls Stage 3 30 to 59 mL/mi n Moder ate decre ase in GFR detai ls Stage 4 15 to 29 mL/mi n Sever e decre ase in GFR detai ls Stage 5 Less than 15 mL/mi n On dialy sis or Kidne y failu re Patie nt's clini laura statu s must be consi dered for the care of your patie nt. Not Available [address] Danyell Garcia, [place], [address], 10/25/2023 15:51:39 10/25/19 24 10/25/2023 COMP METAB OLIC PANEL BUN/creatini ne ratio 17 12-20 normal Not Available [address] , [place], [address], 10/25/2023 15:51:39 10/25/19 24 10/25/2023 COMP METAB OLIC PANEL total protein 6.3 g/dL 6.4-8. 2 low Not Available [address] , [place], [address], 10/25/2023 15:51:39 10/25/19 24 10/25/2023 COMP METAB OLIC PANEL albumin 3.2 g/dL 3.4-5. 0 low Not Available [address] , [place], [address], 10/25/2023 15:51:39 10/25/19 24 10/25/2023 COMP METAB OLIC PANEL globulin 3.1 g/dL 1.5-4. 0 normal Not Available [address] , [place], [address], 10/25/2023 15:51:39 10/25/19 24 10/25/2023 COMP METAB OLIC PANEL albumin/glob ulin ratio 1.0 0.5-2. 0 normal Not Available [address] Danyell Garcia, [place], [address], 10/25/2023 15:51:39 10/25/19 24 10/25/2023 COMP METAB OLIC PANEL calcium 8.2 mg/dL 8.5-10 .1 low Not Available [address] , [place], [address], 10/25/2023 15:51:39 10/25/19 24 10/25/2023 COMP METAB OLIC PANEL osmolality serum calculated 286 mOsm/ kg 272-28 8 normal Not Available [address] , [place], [address], 10/25/2023 15:51:39 10/25/19 24 10/25/2023 COMP METAB OLIC PANEL bilirubin total 0.2 mg/dL 0.2-1. 0 normal Use of this assay is not recom ashley d for patie nts under going treat ment with Eltro mbopa g due to the poten tial for false ly eleva zeyad resul ts. Not Available [address] , [place], [address], 10/25/2023 15:51:39 10/25/19 24 10/25/2023 COMP METAB OLIC PANEL SGOT/AST 9 U/L 15-37 low Not Available [address] , [place], [address], 10/25/2023 15:51:39 10/25/19 24 10/25/2023 COMP METAB OLIC PANEL SGPT/ALT 26 U/L 14-59 normal Not Available [address] , [place], [address], 10/25/2023 15:51:39 10/25/19 24 10/25/2023 COMP METAB OLIC PANEL alkaline phosphatase total 102 U/L 46-116 normal Not Available [address] , [place], [address], 10/25/2023 15:51:39 10/25/19 24 10/25/2023 COMP METAB OLIC PANEL performing lab SEE NOTE - [facility] R [address] [facility] [address] Not Available [address] [place], [address], 10/25/2023 15:51:39 03/15/20 24 03/15/2024 GLYCO HEMOG LOBIN (HGB A1C) note See Note Order ing Provi kathia: Frank ling DRUG ENFORCEMENT AGENT Not Available [address] Danyell Garcia, [place], [address], 03/15/2024 12:26:52 03/15/20 24 03/15/2024 GLYCO HEMOG LOBIN (HGB A1C) glycohemoglo bin (HGB A1C) 5.6 % 4.5-6. 2 normal Predi abete s: 5.7 - 6.4 Diabe kristi: >6.4 Glyce nalini contr ol for adult s with diabe kristi: <7.0 Not Available [address] , [place], [address], 03/15/2024 12:26:52 03/15/20 24 03/15/2024 GLYCO HEMOG LOBIN (HGB A1C) performing lab see note - [address] [address] Not Available [address] Danyell Garcia, [place], [address], 03/15/2024 12:26:52 04/23/20 24 04/23/2024 CBC W/AUT O DIFFE RENTI AL note SEE NOTE Order ing Provi kathia: Frank ling DRUG ENFORCEMENT AGENT Not Available [address] Danyell Garcia, [place], [address], 04/23/2024 11:55:22 04/23/20 24 04/23/2024 CBC W/AUT O DIFFE RENTI AL white blood cell 6.4 10e3/ uL 4.5-13 .0 normal Not Available [address] Danyell Garcia, [place], [address], 04/23/2024 11:55:22 04/23/20 24 04/23/2024 CBC W/AUT O DIFFE RENTI AL red blood cell 3.49 10e6/ uL 3.80-5 .10 low Not Available [address] Danyell Garcia, [place], [address], 04/23/2024 11:55:22 04/23/20 24 04/23/2024 CBC W/AUT O DIFFE RENTI AL hemoglobin 11.5 g/dL 11.5-1 5.3 normal Not Available [address] Danyell Garcia, [place], [address], 04/23/2024 11:55:22 04/23/20 24 04/23/2024 CBC W/AUT O DIFFE RENTI AL hematocrit 33.7 % 34.0-4 6.0 low Not Available [address] Danyell Garcia, [place], [address], 04/23/2024 11:55:22 04/23/20 24 04/23/2024 CBC W/AUT O DIFFE RENTI AL mean cell volume 97 fL 78.0-9 8.0 normal Not Available [address] Danyell Garcia, [place], [address], 04/23/2024 11:55:22 04/23/20 24 04/23/2024 CBC W/AUT O DIFFE RENTI AL mean cell HGB 33.0 pg 25.0-3 5.0 normal Not Available [address] Danyell Garcia, [place], [address], 04/23/2024 11:55:22 04/23/20 24 04/23/2024 CBC W/AUT O DIFFE RENTI AL mean cell HGB concentratio n 34.1 g/dL 31.0-3 6.0 normal Not Available [address] Danyell Garcia, [place], [address], 04/23/2024 11:55:22 04/23/20 24 04/23/2024 CBC W/AUT O DIFFE RENTI AL red cell distribution width 13.9 % 11.0-1 5.0 normal Not Available [address] Danyell Garcia, [place], [address], 04/23/2024 11:55:22 04/23/20 24 04/23/2024 CBC W/AUT O DIFFE RENTI AL platelet count 205 10e3/ uL 150-40 0 normal Not Available [address] , [place], [address], 04/23/2024 11:55:22 04/23/20 24 04/23/2024 CBC W/AUT O DIFFE RENTI AL immature granulocyte % 0 0-1 normal Not Available [address] , [place], [address], 04/23/2024 11:55:22 04/23/20 24 04/23/2024 CBC W/AUT O DIFFE RENTI AL neutrophil % 63 % 35-75 normal Not Available [address] Danyell Garcia, [place], [address], 04/23/2024 11:55:22 04/23/20 24 04/23/2024 CBC W/AUT O DIFFE RENTI AL lymphocyte % 29 % 10-50 normal Not Available [address] Danyell Garcia, [place], [address], 04/23/2024 11:55:22 04/23/20 24 04/23/2024 CBC W/AUT O DIFFE RENTI AL monocyte % 6 % 0-15 normal Not Available [address] Danyell Garcia, [place], [address], 04/23/2024 11:55:22 04/23/20 24 04/23/2024 CBC W/AUT O DIFFE RENTI AL eosinophil % 2 % 0-5 normal Not Available [address] Danyell Garcia, [place], [address], 04/23/2024 11:55:22 04/23/20 24 04/23/2024 CBC W/AUT O DIFFE RENTI AL basophil % 1 % 0-5 normal Not Available [address] Danyell Garcia, [place], [address], 04/23/2024 11:55:22 04/23/20 24 04/23/2024 CBC W/AUT O DIFFE RENTI AL immature granulocyte # 0.01 x1000 /uL 0-0.05 normal Not Available [address] , [place], [address], 04/23/2024 11:55:22 04/23/20 24 04/23/2024 CBC W/AUT O DIFFE RENTI AL neutrophil # 4.01 x1000 /uL 1.50-8 .00 normal Not Available [address] Danyell Garcia, [place], [address], 04/23/2024 11:55:22 04/23/20 24 04/23/2024 CBC W/AUT O DIFFE RENTI AL lymphocyte # 1.81 x1000 /uL 1.20-5 .20 normal Not Available [address] Danyell Garcia, [place], [address], 04/23/2024 11:55:22 04/23/20 24 04/23/2024 CBC W/AUT O DIFFE RENTI AL monocyte # 0.37 x1000 /uL 0.40-0 .90 low Not Available [address] Danyell Garcia, [place], [address], 04/23/2024 11:55:22 04/23/20 24 04/23/2024 CBC W/AUT O DIFFE RENTI AL eosinophil # 0.13 x1000 /uL 0.00-0 .50 normal Not Available [address] Danyell Garcia, [place], [address], 04/23/2024 11:55:22 04/23/20 24 04/23/2024 CBC W/AUT O DORIS ESTEVES basophil # 0.03 x1000 /uL 0.00-0 .30 normal Not Available [address] , [place], [address], 04/23/2024 11:55:22 04/23/20 24 04/23/2024 CBC W/AUT O DORIS ESTEVES NRBC automated 0.0 /100_ WBC Not Available [address] , [place], [address], 04/23/2024 11:55:22 04/23/20 24 04/23/2024 CBC W/AUT O DORIS ESTEVES performing lab SEE NOTE ML - [facility] [address] [facility] [address] Not Available [address] , [place], [address], 04/23/2024 11:55:22 04/23/20 24 04/23/2024 COMP METAB OLIC PANEL note SEE NOTE Order ing Provi kathia: Frank ling APRN Not Available [address] , [place], [address], 04/23/2024 12:16:30 04/23/20 24 04/23/2024 COMP METAB OLIC PANEL sodium 140 mmol/ L 136-14 5 normal Not Available [address] , [place], [address], 04/23/2024 12:16:30 04/23/20 24 04/23/2024 COMP METAB OLIC PANEL potassium 4.0 mmol/ L 3.5-5. 1 normal Not Available [address] , [place], [address], 04/23/2024 12:16:30 04/23/20 24 04/23/2024 COMP METAB OLIC PANEL chloride 106 mmol/ L 98-107 normal Not Available [address] , [place], [address], 04/23/2024 12:16:30 04/23/20 24 04/23/2024 COMP METAB OLIC PANEL carbon dioxide 25 mmol/ L 24-33 normal Not Available [address] , [place], [address], 04/23/2024 12:16:30 04/23/20 24 04/23/2024 COMP METAB OLIC PANEL anion gap 13.0 mmol/ L 10-20 normal Not Available [address] , [place], [address], 04/23/2024 12:16:30 04/23/20 24 04/23/2024 COMP METAB OLIC PANEL glucose 94 mg/dL 70-99 normal Not Available [address] , [place], [address], 04/23/2024 12:16:30 04/23/20 24 04/23/2024 COMP METAB OLIC PANEL blood urea nitrogen 14 mg/dL 7-18 normal Not Available [address] , [place], [address], 04/23/2024 12:16:30 04/23/20 24 04/23/2024 COMP METAB OLIC PANEL creatinine 0.83 mg/dL 0.55-1 .02 normal Not Available [address] , [place], [address], 04/23/2024 12:16:30 04/23/20 24 04/23/2024 COMP METAB OLIC PANEL GFR (estimated) 81 mL/mi n >60 normal [IM JESSENIA NT]: The 2020 CKD-E PI equat ion is now the recom ashley d stand omaira. This versi on does not inclu de race, as do the 2008 and 2011 CKD-E PI creat inine and creat inine -cyst atin C equat ions. Radha e note that the eGFR now repor zeyad is gener ated by the new 2020 CKD-E PI equat ion, which decre ases the eGFR for black s by up to 10% and incre ases the eGFR for non-b lacks by up to 10% in lakeshia rison to the old equat ion. To lakeshia re a legac y eGFR to a curre nt value , a 2008 CKD-E PI calcu lator is easil y searc hable on the inter net. Calcu lated GFR: This calcu lated GFR is advoc ated by the Natio nal Kidne y Found ation to be used as an indic ator of Chron ic Kidne y Disea se (CKD) . 5 Stage s of Chron ic Kidne y Disea se. Stage 1 90 mL/mi n or more Healt hy kidne ys or Kidne y damag e with fareed l or high GFR detai ls Stage 2 60 to 89 mL/mi n Kidne y damag e and mild decre ase in GFR detai ls Stage 3 30 to 59 mL/mi n Moder ate decre ase in GFR detai ls Stage 4 15 to 29 mL/mi n Sever e decre ase in GFR detai ls Stage 5 Less than 15 mL/mi n On dialy sis or Kidne y failu re Patie nt's clini laura statu s must be consi dered for the care of your patie nt. Not Available [address] , [place], [address], 04/23/2024 12:16:30 04/23/20 24 04/23/2024 COMP METAB OLIC PANEL BUN/creatini ne ratio 16 12-20 normal Not Available [address] , [place], [address], 04/23/2024 12:16:30 04/23/20 24 04/23/2024 COMP METAB OLIC PANEL total protein 6.7 g/dL 6.4-8. 2 normal Not Available [address] , [place], [address], 04/23/2024 12:16:30 04/23/20 24 04/23/2024 COMP METAB OLIC PANEL albumin 3.5 g/dL 3.4-5. 0 normal Not Available [address] , [place], [address], 04/23/2024 12:16:30 04/23/20 24 04/23/2024 COMP METAB OLIC PANEL globulin 3.2 g/dL 1.5-4. 0 normal Not Available [address] , [place], [address], 04/23/2024 12:16:30 04/23/20 24 04/23/2024 COMP METAB OLIC PANEL albumin/glob ulin ratio 1.1 0.5-2. 0 normal Not Available [address] , [place], [address], 04/23/2024 12:16:30 04/23/20 24 04/23/2024 COMP METAB OLIC PANEL calcium 8.9 mg/dL 8.5-10 .1 normal Not Available [address] , [place], [address], 04/23/2024 12:16:30 04/23/20 24 04/23/2024 COMP METAB OLIC PANEL osmolality serum calculated 279 mOsm/ kg 272-28 8 normal Not Available [address] [place], [address], 04/23/2024 12:16:30 04/23/20 24 04/23/2024 COMP METAB OLIC PANEL bilirubin total 0.2 mg/dL 0.2-1. 0 normal Use of this assay is not recom ashley d for patie nts under going treat ment with Eltro mbopa g due to the poten tial for false ly eleva zeyad resul ts. Not Available [address] [place], [address], 04/23/2024 12:16:30 04/23/20 24 04/23/2024 COMP METAB OLIC PANEL SGOT/AST 19 U/L 15-37 normal Not Available [address] [place], [address], 04/23/2024 12:16:30 04/23/20 24 04/23/2024 COMP METAB OLIC PANEL SGPT/ALT 28 U/L 14-59 normal Not Available [address] [place], [address], 04/23/2024 12:16:30 04/23/20 24 04/23/2024 COMP METAB OLIC PANEL alkaline phosphatase total 121 U/L 46-116 high Not Available [address] , [place], [address], 04/23/2024 12:16:30 04/23/20 24 04/23/2024 COMP METAB OLIC PANEL performing lab SEE NOTE - [address] [address] Not Available [address] [place], [address], 04/23/2024 12:16:30 07/17/1907/17/2024 COMP METAB OLIC PANEL note SEE NOTE Order ing Provi kathia: Frank ling APRN Not Available [address] [place], [address], 07/17/2024 08:56:08 07/17/1907/17/2024 COMP METAB OLIC PANEL sodium 141 mmol/ L 136-14 5 normal Not Available [address] [place], [address], 07/17/2024 08:56:08 07/17/1924 0707/17/2024 COMP METAB OLIC PANEL potassium 4.0 mmol/ L 3.5-5. 1 normal Not Available [place] [address], [place], [address], 07/17/2024 08:56:08 07/17/19 25 07/17/2024 COMP METAB OLIC PANEL chloride 105 mmol/ L 98-107 normal Not Available [address]anyell Garcia, [place], [address], 07/17/2024 08:56:08 07/17/19 25 07/17/2024 COMP METAB OLIC PANEL carbon dioxide 24 mmol/ L 24-33 normal Not Available [address] [place] Garcia, [place], [address], 07/17/2024 08:56:08 07/17/19 25 07/17/2024 COMP METAB OLIC PANEL anion gap 16.0 mmol/ L 10-20 normal Not Available [address] Garcia, [place], [address], 07/17/2024 08:56:08 07/17/19 25 07/17/2024 COMP METAB OLIC PANEL glucose 96 mg/dL 70-99 normal Not Available [place] [address], [place], [address], 07/17/2024 08:56:08 07/17/19 25 07/17/2024 COMP METAB OLIC PANEL blood urea nitrogen 21 mg/dL 7-18 high Not Available [place] [address] [place], [address], 07/17/2024 08:56:08 07/17/19 25 07/17/2024 COMP METAB OLIC PANEL creatinine 0.88 mg/dL 0.55-1 .02 normal Not Available [address]anyell Garcia, [place], [address], 07/17/2024 08:56:08 07/17/19 25 07/17/2024 COMP METAB OLIC PANEL GFR (estimated) 75 mL/mi n >60 normal [IM JESSENIA NT]: The 2020 CKD-E PI equat ion is now the recom ashley d stand omaira. This versi on does not inclu de race, as do the 2008 and 2011 CKD-E PI creat inine and creat inine -cyst atin C equat ions. Pletang e note that the eGFR now repor zeyad is gener ated by the new 2020 CKD-E PI equat ion, which decre ases the eGFR for black s by up to 10% and incre ases the eGFR for non-b lacks by up to 10% in lakeshia rison to the old equat ion. To lakeshia re a legac y eGFR to a curre nt value , a 2008 CKD-E PI calcu lator is easil y searc hable on the inter net. Calcu lated GFR: This calcu lated GFR is advoc ated by the Natio nal Kidne y Found ation to be used as an indic ator of Chron ic Kidne y Disea se (CKD) . 5 Stage s of Chron ic Kidne y Disea se. Stage 1 90 mL/mi n or more Healt hy kidne ys or Kidne y damag e with fareed l or high GFR detai ls Stage 2 60 to 89 mL/mi n Kidne y damag e and mild decre ase in GFR detai ls Stage 3 30 to 59 mL/mi n Moder ate decre ase in GFR detai ls Stage 4 15 to 29 mL/mi n Sever e decre ase in GFR detai ls Stage 5 Less than 15 mL/mi n On dialy sis or Kidne y failu re Patie nt's clini laura statu s must be consi dered for the care of your patie nt. Not Available [address] , [place], [address], 07/17/2024 08:56:08 07/17/19 25 07/17/2024 COMP METAB OLIC PANEL BUN/creatini ne ratio 23 12-20 high Not Available [address] , [place], [address], 07/17/2024 08:56:08 07/17/19 25 07/17/2024 COMP METAB OLIC PANEL total protein 6.8 g/dL 6.4-8. 2 normal Not Available [address] , [place], [address], 07/17/2024 08:56:08 07/17/19 25 07/17/2024 COMP METAB OLIC PANEL albumin 3.5 g/dL 3.4-5. 0 normal Not Available [address] , [place], [address], 07/17/2024 08:56:08 07/17/19 25 07/17/2024 COMP METAB OLIC PANEL globulin 3.3 g/dL 1.5-4. 0 normal Not Available [address] , [place], [address], 07/17/2024 08:56:08 07/17/19 25 07/17/2024 COMP METAB OLIC PANEL albumin/glob ulin ratio 1.1 0.5-2. 0 normal Not Available [address] Garcia, [place], [address], 07/17/2024 08:56:08 07/17/19 25 07/17/2024 COMP METAB OLIC PANEL calcium 9.1 mg/dL 8.5-10 .1 normal Not Available [address] [place], [address], 07/17/2024 08:56:08 07/17/19 25 07/17/2024 COMP METAB OLIC PANEL osmolality serum calculated 283 mOsm/ kg 272-28 8 normal Not Available [address] [place], [address], 07/17/2024 08:56:08 07/17/19 25 07/17/2024 COMP METAB OLIC PANEL bilirubin total 0.2 mg/dL 0.2-1. 0 normal Use of this assay is not recom ashley d for patie nts under going treat ment with Eltro mbopa g due to the poten tial for false ly eleva zeyad resul ts. Not Available [address] , [place], [address], 07/17/2024 08:56:08 07/17/19 25 07/17/2024 COMP METAB OLIC PANEL SGOT/AST 20 U/L 15-37 normal Not Available [address] , [place], [address], 07/17/2024 08:56:08 07/17/19 25 07/17/2024 COMP METAB OLIC PANEL SGPT/ALT 33 U/L 14-59 normal Not Available [address] , [place], [address], 07/17/2024 08:56:08 07/17/19 25 07/17/2024 COMP METAB OLIC PANEL alkaline phosphatase total 118 U/L 46-116 high Not Available [address] , [place], [address], 07/17/2024 08:56:08 07/17/19 25 07/17/2024 COMP METAB OLIC PANEL performing lab SEE NOTE ML - [facility] REGIO [facility] [address] [facility] [address] Not Available [address] [place], [address], 07/17/2024 08:56:08 03/29/20 23 03/29/2023 CT, chest , w/ contr ast [facility] al Medica l Ce Name: CAMILA TOVAR ICIA [address] [facility] Phys: Katerina GOOD,[place] [address] : 1965 Age: 57 Sex: F Acct: [id number] Loc: Glenda.CT PHONE #: Exam Date: 2022 Status : REG CLI FAX #: Rad# [id number] Unit# [id number] Admit Date: 2022 EXAMS: CPT CODE: [id number] CT CHEST W/CONT RAST [address]17 CT CHEST WITH CONTRA ST, 2022: CLINIC AL HISTOR Y: 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 This data was used to perfor m dubon l and sagitt al recons tructi ons. GE's Auto mA automa zeyad exposu re contro l was utiliz ed for radiat ion dose reduct ion. FINDIN GS: There is a 1.1 x 1.3 cm lymph node to the right of the proxim al thorac ic esopha abel. This is not signif icantl y change d from and was not previo usly hyperm etabol ic. There is no new pathol ogic intrat horaci c lympha denopa thy The heart is normal in size with appare nt left ventri cular dilata tion. There is an infusi on port cathet er within the left anteri or chest wall with the tip of the cathet er in the upper right atrium via a left subcla vian approa ch. There are granul omatou s calcif icatio ns in the medias tinum and left hilum. The thyroi d gland is unrema rkable . There is right- sided volume loss, unchan ged from Februa ry. There is a minima l right pleura l effusi on, unchan ged from the recent prior and decrea sed from the more remote priors . There is stable right perihi lar fibros is. There are subple ural bands involv ing the right middle and lower lobes a few centim eters above the right hemidi aphrag m, unchan ged. There is no new pulmon christina nodule . There is a calcif ied granul quinn in the left apex. There is minor parase ptal emphys nikita in the right upper lobe. The airway s are patent . There is a 1.5 cm calcif icatio n in the anteri or superi or right hepati c lobe. Granul omatou s calcif icatio ns involv e the spleen . There is no adrena l mass. There are modera te right javy latera l endpla te osteop hytes at T3/4 and from T6/7 throug h T9/10. There is no suspic ious osseou s lesion IMPRES MARILYN: 1. Stable right perihi lar fibros is and right- sided volume loss withou t eviden ce of local recurr ence or metast atic diseas e PAGE 1 Signed Report (PAMELA NUED) [facility] Name: CAMILA TOVAR [place] [address] Medica l [facility]COM Phys: aKterina GOOD,[facility] [place] [place] [address] : 1965 Age: 57 Sex: F Acct: [id number] Loc: G.CT PHONE #: Exam Date: 2022 Status : REG CLI FAX #: Rad# [id number] Unit# [id number] Admit Date: 2022 EXAMS: CPT CODE: [id number] CT CHEST W/CONT RAST 48835 2. Minima l right pleura l effusi on, unchan ged from the recent prior 3. Mildly enlarg ed right paraes ophage al lymph node. This is not signif icantl y change d from 2021 and is theref ore benign NOTE: The patien t has had a total of 3 previo us CTs and cardia c nuclea r medici ne studie s within the past 12 months *Recom mendat ions for follow up/man agemen t of pulmon christina nodule s will be based on the [employer] criter ia NOTE: Any incide ntally noted liver lesion s equal to or less than 5 mm, cystic lesion s in the kidney s less than 1 cm, and/or adrena l lesion s equal to or less than 1 cm, genera lly are consid ered highly likely to be benign and no additi onal evalua tion is recomm ended, unless specif romreojacqui barr lyndsey in the impres marilyn. Electr onical ly Signed by OLINDA CHATMAN MD on 2022 at 0959 Report ed and signed by: OLINDA CHATMAN MD CC: Low Borges MD; Kath albrecht Dictat ed Date/T sue: 2022 (0959) Techno logist : GRACE SUERO Transc ribed Date/T sue: 2022 (0959) Transc riptio nist: DR.HAG ARUN Conroy onic Signat ure Date/T sue: 2022 (0959) Printe d Date/T sue: 2022 (1002) BATCH NO: N/A PAGE 2 Signed Report CC'ed Logic: Orderi ng Provid er: DEBRA GARVEY Attend ing Provid er: DEBRA GARVEY Referr ing Provid er: DEBRA GARVEY Consul ting Provid er: ALBERTO STOCKTON [email or web address] [address] [place], [address], 06/22/2023 15:42:42 04/18/20 23 04/18/2023 - ankle AP lat w/1 obl lt [facility] Name: [facility]OV[facility] [address] [place], [place] [address]a [facility] [address] Phys: Katerina GOOD,[place] [address] : 1965 Age: 57 Sex: F Acct: [id number] Loc: TiffanyRAD PHONE #: [phone] Exam Date: 2022 Status : REG CLI FAX #: Rad# [id number] Unit# [id number] Admit Date: 11/20/ 2023 EXAMS: CPT CODE: [id number] ANKLE AP LAT W/[place] [address] 3 VIEWS LEFT ANKLE, 2022: CLINIC AL HISTOR Y: Left ankle pain status post fall 5 days ago. COMPAR [place]UST[place]: None. FINDIN GS: There is a minima lly displa brittani avulsi on fractu re of the medial malleo kayla. The remain kathia of the visual ized osseou s struct ures are intact . There is modera te inferi or calcan eal spurri ng. There is modera te diffus e soft tissue swelli ng of the ankle withou t a tibiot alar effusi on IMPRES MARILYN: 1. Minima lly displa brittani avulsi on fractu re of the left medial malleo kayla These findin gs were relaye d to Dr. Myriam Borges via [place] text on 2022 at 11:35 AM Electr onical ly Signed by OLINDA CHATMAN MD on 2022 at 1134 Report ed and signed by: OLINDA CHATMAN MD CC: Low Borges MD; Kath albrecht Dictat ed Date/T sue: 2022 (1134) Techno logist : KYLIE DUMONT S, R.T. (R) Transc ribed Date/T sue: 2022 (1134) Transc riptio nist: DR.HAG DIAS Electr onic Signat ure Date/T sue: 2022 (1134) Printe d Date/T sue: 2022 (1137) BATCH NO: N/A PAGE 1 Signed Report CC'ed Logic: Orderi ng Provid er: DEBRA GARVEY Attend ing Provid er: DEBRA GARVEY Referr ing Provid er: DEBRA GARVEY Consul ting Provid er: ALBERTO STOCKTON [email or web address] , [place], [address], 06/23/2023 11:56:03 11/21/19 24 11/21/2023 CT, chest , w/ contr ast [facility] Name: CAMILA TOVAR ICIBaljit [address] Phys: [place] [address] : 1965 Age: 58 Sex: F Acct: [id number] Loc: G.CT PHONE #: Exam Date: 2023 Status : REG CLI FAX #: [phone] Rad# [id number] Unit# [id number] Admit Date: 2023 EXAMS: CPT CODE: [id number] CT CHEST W/CONT RAST [id number] CLINIC AL INFORM ATION: Observ ation with follow -up lung carcin quinn diagno sed in 2020. Status post radiat ion therap y and chemot herapy . TECHNI QUE: Axial multis lice enhanc ed imagin g of the chest was perfor med as well as 2-D recons tructi ons in the dubon l plane. Automa zeyad exposu re contro l was employ ed for dose reduct ion. COMPAR [place]UST[place]: 2022 and older studie s FINDIN GS: Thyroi d gland/ soft tissue s: Venous access port in place from the left as before . Heart/ Aorta/ Medias tinum: Aorta and great vessel s have a normal appear ance. Heart size at the upper limits of normal . No perica rdial effusi on. Stable right paratr acheal lymph node, axial image 24 granul omatou s adenop athy as before . Stable fibros is about the right hilum with narrow ing of the bronch us interm edius as before . Stable trace right effusi on and/or depend ent pleura l thicke sheela. Abdome n: Hepati c steato sis. Lungs: No infilt rate or effusi on. No suspic ious nodula rity Osseou s elemen ts: No aggres sive osseou s lesion s. IMPRES MARILYN: 1. Stable examin ation as detail ed above withou t local recurr ence or distan t metast atic diseas e. Commun icatio n: Per this writte n report . NOTE: Manage ment/f ollow- up of any incid ental pulmo nary nodule s will be based on the [employer] criter ia. Any incide ntally noted liver lesion s equal to or less than 5 mm, cystic lesion s in the kidney s less than 1 cm, and/or adrena l lesion s equal to or less than 1 cm, genera lly are consid ered highly likely to be benign and no additi onal evalua tion is recomm ended, unless specif ically mentio lyndsey in the impres marilyn. PAGE 1 Signed Report (PAMELA NUED) [facility] Name: [facility]Y [facility] REPUCOM Phys: Albino ll DRUG ENFORCEMENT AGENT,[place] [address] : 1965 Age: 58 Sex: F Acct: [id number] Loc: G.CT PHONE #: [phone] Exam Date: 2023 Status : REG CLI FAX #: Rad# [id number] Unit# [id number] Admit Date: 2023 EXAMS: CPT CODE: [id number] 327 CT CHEST W/CONT RAST 90895 This report is genera zeyad using voice recogn ition comput er softwa re. Inadve rtent errors may have occurr ed while dictat ing report . Common sense approa ch is apprec iated and do not hesita te to call for clarif icatio n when necess christina. Electr onical ly Signed by Karen Albrecht on 2023 at 0946 Report ed and signed by: ARIANA Albrecht M.D. CC: Kaht albrecht; Stevan maxwell DRUG ENFORCEMENT AGENT Dictat ed Date/T sue: 2023 (0946) Techno logist : GRACE GRESHAM Y Transc ribed Date/T sue: 2023 (0946) Transc riptio nist: DR.HAR CELESTE Conroy onic Signat ure Date/T sue: 2023 (46) Printe d Date/T sue: 2023 (49) BATCH NO: N/A PAGE 2 Signed Report CC'ed Logic: Orderi ng Provid er: ALBINO ACOSTA Y Attend ing Provid er: ALBINO ACOSTA Y Referr ing Provid er: ALBINO ACOSTA Y Consul ting Provid er: ALBERTO conley [address] [place], [address], 12/16/2023 16:01:38 07/17/19 25 07/17/2024 CT, chest , w/ contr ast [facility] Name: PULASK KATHY JainR [facility] [employer] [address] 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 Status post chemot herapy and radiat ion therap y TECHNI QUE: Axial multis lice enhanc ed imagin g of the chest was perfor med as well as 2-D recons tructi ons in the dubon l plane. Automa zeyad exposu re contro l was employ ed for dose reduct ion. 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 Interv al decrea se in the in the ill-de fined soft tissue invest ing the right hilum. Persis tent narrow ing of the right middle lobe bronch us in the bronch us interm edius. Centra l pulmon christina arteri es are patent . Aorta unrema rkable heart size normal . Abdome n: Hepati c steato sis. Coarse subcap sular calcif icatio ns in the latera l aspect of the right hepati c lobe as before . Lungs: Stable right parame diasti nal fibros is trace right pleura l effusi on as before mild emphys nikita withou t eviden ce of acute diseas e. Osseou s elemen ts: No signif icant osseou s pathol ogy. IMPRES MARILYN: 1. Interv al decrea se in the soft tissue invest ing the right hilum compat ible with respon se to therap y and/or improv ing postth erapy fibros is. Otherw ise, stable examin ation withou t eviden ce of local recurr ence or distan t metast atic diseas e in the chest. Commun icatio n: Per this writte n report . NOTE: Manage ment/f ollow- up of any incid ental pulmo nary nodule s will be based on the [employer] criter ia. Any incide ntally noted liver lesion s equal to or less than 5 mm, cystic lesion s in the kidney s PAGE 1 Signed Report (PAMELA NUED) [facility] Name: PULASK CristobalPATR [facility] [employer] Phys: Albino maxwell DRUG ENFORCEMENT AGENT,T katherinepam [facility] [place] [address] : 1965 Age: 59 Sex: F Acct: [id number] Loc: G.LAB PHONE #: [phone] Exam Date: 2024 Status : REG CLI FAX #: [phone] Rad# [id number] Unit# [id number] Admit Date: 2024 EXAMS: CPT CODE: [id number] 848 CT CHEST W/CONT RAST 36313 less than 1 cm, and/or adrena l lesion s equal to or less than 1 cm, genera lly are consid ered highly likely to be benign and no additi onal evalua tion is recomm ended, unless specif ically mentio lyndsey in the impres marilyn. This report is genera zeyad using voice recogn ition comput er softwa re. Inadve rtent errors may have occurr ed while dictat ing report . Common sense approa ch is apprec iated and do not hesita te to call for megan albrecht when necess christina. Electr onical ly Signed by Karen Albrecht on 2024 at 1218 Report ed and signed by: ARIANA Albrecht M.D. CC: Kath albrecht; Stevan maxwell DRUG ENFORCEMENT AGENT Dictat ed Date/T sue: 2024 (1218) Techno logist : GRACE BELLAM Y Transc ribed Date/T sue: 2024 (1218) Transc riptio nist: DR.HAR CELESTE Conroy onic Signat ure Date/T sue: 2024 (1218) Printe d Date/T sue: 2024 (1220) BATCH NO: N/A PAGE 2 Signed Report CC'ed Logic: Orderi ng Provid er: ALBINO Oscar Attend ing Provid er: ALBINO Oscar Referr ing Provid er: ALBINO ACOSTA Y Consul ting Provid er: ALBERTO baer[address] , [place], [address], 07/18/2024 09:36:18 Result Notes None recorded. Problems Name Problem SNOMED Code Status Onset Date Resolution Date Notes Provider Name and Address Organization Details Recorded Time Squamous cell carcinoma of bronchus 891661195 Active Not Available [facility] 3 12:19:04 Centriacin ar emphysema 74094805 Active Not Available [facility] 3 12:19:04 History of clinical finding in subject 726007536 Active Not Available [facility] 3 12:19:04 Knee pain Active Not Available [facility] 3 12:19:04 Swelling of knee joint 949210132 Active Not Available [facility] 3 12:19:04 Plantar fascial fibromatos is 43505830 Active Not Available [facility] 3 12:19:04 Normocytic anemia 172355499 Active Not Available [facility] 3 12:19:04 Macrocytic anemia 52968353 Active Not Available [facility] 3 12:19:04 Hyponatrem ia 78908222 Active Not Available [facility] 3 12:19:04 Dupuytren' s contractur e of finger 001406731 Active Not Available [facility] 3 12:19:04 Atelectasi s 41918956 Active Not Available [facility] 3 12:19:04 Chronic obstructiv e pulmonary disease 47575918 Active Not Available [facility] 3 12:19:04 Major depression , single episode 58185602 Active Not Available [facility] 3 12:19:04 Nausea 531223616 Active Not Available [facility] 3 12:19:04 Squamous cell carcinoma of right lung 6509705439319 9102 Active Not Available [facility] 3 12:19:04 Acute exacerbati on of chronic obstructiv e pulmonary disease 554772624 Active Not Available [facility] 3 12:19:04 Diarrhea 85556769 Active Not Available [facility] 3 12:19:04 Pain due to neoplastic disease 5332218715565 2 Active Not Available [facility] 3 12:19:04 Cubital tunnel syndrome Active Not Available [facility] 3 12:19:04 Device in situ 513673878 Active Not Available [facility] 3 12:19:04 Osteoarthr itis of knee 088717260 Active Not Available [facility] 3 12:19:04 Chronic hyponatrem ia 11558219 Active 2021 Not Available [facility] 3 12:19:04 Chronic pain due to malignant neoplastic disease 096509907 Active 2021 Not Available [facility] 3 12:19:04 Pulmonary emphysema 02095950 Active 2021 Not Available [facility] 3 12:19:04 Primary malignant neoplasm of lung 78694705 Active 2021 Not Available [facility] 3 12:19:04 Congestive heart failure 89194687 Active 2022 Not Available [facility] 3 12:19:04 Acute bronchitis 18267511 Active 2022 Not Available [facility] 3 12:19:04 Pleural effusion 84920058 Active 2022 Not Available [facility] 3 12:19:04 Continuous dependence on cigarette smoking 8919302106337 08 Active 2023 SHOLA MAY NP [address] [facility],[address], [address] , [facility] & [place] 4 15:18:38 Pain of left ankle joint 1218013992341 9103 Active 2023 SHOLA MAY NP [address] [facility],[address], [place], [address] , [facility] LPNT [facility] & [place] 4 15:19:44 Problem Notes None recorded. Procedures Surgical History Date Name Laterality Status Provider Name and Address Organization Details Recorded Time hernia repair completed Not Available [facility] 08:18:48 hysterectomy completed Not Available [facility] 08:18:48 arthroscopy of knee completed Not Available [facility] 03/23/2022 08:18:48 Unlisted procedure stomach completed Not Available [facility] 2 08:18:47 Imaging Results Imaging Date Name Status LastModified by Organiz ation Details LastModified Time 03/29/2023 CT, chest, w/ contrast completed jhony [place] [address], [place], [address], 06/22/2023 15:42:42 04/18/2023 - ankle AP lat w/1 obl lt completed jhony [address] Danyell Garcia, [place], [address], 06/23/2023 11:56:03 11/21/2023 CT, chest, w/ contrast completed jarvis [address] [place], [address], 12/16/2023 16:01:38 07/17/2024 CT, chest, w/ contrast completed [place] [address] , [place], [address], 07/18/2024 09:36:18 Procedure Notes None recorded. Medical Equipment None Reported. Allergies Allergen ID Allergen Name Allergen Category Reaction Reaction Severity Criticality Documentation Date Start Date Code Code System Note Provider Name and Address Organization Details Recorded Time niacin medicatio n Not available Not available Not available 02/09/2022 7393 RxNorm Mckenna Londono [facility], [facility] & [place] 08:04:46 Medications Name Sig Start Date Stop Date Status Note LastModified by Organization Details LastModified Time oyster shell calcium 500 mg TAKE 1 TABLET BY MOUTH DAILY 08/05 completed Not Available Not Available Not Available vitamin d3 25 mcg (1000 ut) TAKE 1 TABLET BY MOUTH DAILY 08/05 completed Not Available Not Available Not Available furosemide 40 mg tablet TAKE 1 TABLET BY MOUTH ONCE DAILY FOR 5 DAYS THEN TAKE NEEDED FOR WEIGHT GAIN. 10/24 completed Not Available Not Available Not Available atorvastati n 40 mg tablet TAKE 1 TABLET BY MOUTH AT BEDTIME. * MUST MAKE APPOINTME NT active Not Available Not Available No t Available metformin 500 mg tablet TAKE ONE TABLET BY MOUTH TWICE DAILY WITH MEALS active Not Available Not Available No t Available atorvastati n 80 mg tablet TAKE 1 TABLET BY MOUTH NIGHTLY AT BEDTIME. 04/18 completed Not Available Not Available Not Available prednisone 10 mg tablet TAKE 4 TABLETS BY MOUTH ONCE DAILY X 2 DAYS, TAKE 3 TABS DAILY X 2 DAYS, TAKE 2 TABS DAILY X 2 DAYS, TAKE 1 TAB DAILY X 2 DAYS. THEN STOP 12/14 completed Not Available Not Available Not Available doxycycline hyclate 100 mg capsule TAKE 1 CAPSULE BY MOUTH TWICE DAILY FOR 7 DAYS. 07/13 completed Not Available Not Available Not Available atorvastati n 20 mg tablet TAKE 1 TABLET BY MOUTH EVERY DAY 07/13 completed Not Available Not Available Not Available albuterol sulfate 2.5 mg/3 mL (0.083 %) solution for nebulizatio n INHALE THE CONTENTS OF 1 VIAL VIA NEBULIZER 4 TIMES DAILY NEEDED. active Not Available Not Available No t Available azithromyci n 250 mg tablet TAKE 2 TABLETS BY MOUTH TODAY THEN 1 TABLET BY MOUTH ONCE A DAY FOR 4 DAYS 12/14 completed Not Available Not Available Not Available benzonatate 200 mg capsule TAKE 1 CAPSULE BY MOUTH 3 TIMES DAILY. 03/09 completed Not Available Not Available Not Available quetiapine 200 mg tablet TAKE 1 TABLET BY MOUTH ONCE DAILY AT BEDTIME. active Not Available Not Available No t Available sodium chloride 1 gram tablet Take twice a day by oral route. 05/11 completed Not Available Not Available Not Available diphenoxyla te-atropine 2.5 mg-0.025 mg tablet TAKE 1 TABLET BY MOUTH 3 TIMES DAILY NEEDED. active Not Available Not Available No t Available Advair Diskus 100 mcg-50 mcg/dose powder for inhalation Inhale 1 inhalatio n twice a day by inhalatio n route for 30 days. 07/31 completed Not Available Not Available Not Available prochlorper azine maleate 10 mg tablet 05/11 completed Not Available Not Available Not Available tramadol 50 mg tablet TAKE 1 TABLET BY MOUTH EVERY 6 HOURS NEEDED FOR PAIN. active Not Available Not Available No t Available acetaminoph en 500 mg tablet active Not Available Not Available Not Available triamcinolo ne acetonide 0.1 % topical cream APPLY A THIN LAYER TO THE AFFECTED AREA(S) TWICE DAILY NEEDED. 10/24 completed Not Available Not Available Not Available spironolact one 25 mg tablet TAKE 1 TABLET BY MOUTH DAILY. 10/24 completed Not Available Not Available Not Available bisoprolol fumarate 5 mg tablet TAKE 1 TABLET BY MOUTH AT BEDTIME active Not Available Not Available No t Available zonisamide 100 mg capsule TAKE 2 CAPSULES BY MOUTH ONCE DAILY. active Not Available Not Available No t Available oxycodone-a cetaminophe n 5 mg-325 mg tablet TAKE 1 TABLET BY MOUTH EVERY 6 HOURS NEEDED FOR PAIN FOR UP TO 4 DAYS. active Not Available Not Available No t Available lorazepam 0.5 mg tablet TAKE 1 TABLET BY MOUTH IN THE MORNING AND AT BEDTIME FOR 3 DAYS. 04/18 completed Not Available Not Available Not Available amitriptyli ne 10 mg tablet TAKE 2 TABLETS BY MOUTH ONCE DAILY AT BEDTIME. 04/18 completed Not Available Not Available Not Available divalproex ER 500 mg tablet,exte nded release 24 hr TAKE 1 TABLET BY MOUTH DAILY 03/09 completed Not Available Not Available Not Available promethazin e 25 mg tablet 05/11 completed Not Available Not Available Not Available Advair Diskus 250 mcg-50 mcg/dose powder for inhalation Inhale 1 puff twice a day by inhalatio n route as directed for 30 days. 04/18 completed Not Available Not Available Not Available sertraline 25 mg tablet 1 TABLET ONCE DAILY 07/31 completed Not Available Not Available Not Available oxcarbazepi ne 600 mg tablet TAKE 1 TABLET (600 MG TOTAL) BY MOUTH 2 TIMES A DAY. 10/24 completed Not Available Not Available Not Available folic acid 1 mg tablet TAKE 1 TABLET BY MOUTH ONCE DAILY active Not Available Not Available No t Available ergocalcife rol (vitamin D2) 1,250 mcg (50,000 unit) capsule TAKE 1 CAPSULE BY MOUTH ONE TIME PER WEEK 08/05 completed Not Available Not Available Not Available ibuprofen 600 mg tablet active Not Available Not Available Not Available levofloxaci n 750 mg tablet TAKE 1 TABLET BY MOUTH DAILY FOR 7 DAYS 03/09 completed Not Available Not Available Not Available albuterol sulfate HFA 90 mcg/actuati on aerosol inhaler INHALE 2 PUFFS INTO THE LUNGS EVERY 4 HOURS NEEDED. active Not Available Not Available No t Available ropinirole 5 mg tablet TAKE ONE TABLET BY MOUTH ONCE DAILY AT BEDTIME active Not Available Not Available No t Available hydroxyzine HCl 10 mg tablet TAKE 1 TABLET BY MOUTH 3 TIMES DAILY NEEDED. 04/18 completed Not Available Not Available Not Available cefdinir 300 mg capsule TAKE 1 CAPSULE BY MOUTH 2 TIMES DAILY 03/09 completed Not Available Not Available Not Available fluticasone propionate 50 mcg/actuati on nasal spray,suspe nsion USE 2 SPRAYS IN EACH NOSTRIL ONCE DAILY. 04/18 completed Not Available Not Available Not Available sertraline 50 mg tablet TAKE 1.5 TABLETS BY MOUTH DAILY DIRECTED. 10/24 completed Not Available Not Available Not Available doxycycline hyclate 100 mg tablet TAKE 1 TABLET BY MOUTH TWICE DAILY 10/11 /2022 completed Not Available Not Available Not Available loratadine 10 mg tablet TAKE 1 TABLET BY MOUTH DAILY NEEDED 10/24 completed Not Available Not Available Not Available naproxen 500 mg tablet 07/30 completed Not Available Not Available Not Available amoxicillin 875 mg-potassiu m clavulanate 125 mg tablet TAKE 1 TABLET BY MOUTH 2 TIMES A DAY. 03/09 completed Not Available Not Available Not Available oxycodone 5 mg tablet TAKE 1 TABLET (5 MG TOTAL) BY MOUTH EVERY 4 HOURS NEEDED FOR PAIN FOR UP TO 7 DAYS. active Not Available Not Available No t Available cholecalcif geronimo (vitamin D3) 25 mcg (1,000 unit) capsule Take 1 {capsule} by oral route. 04/18 completed Not Available Not Available Not Available Spiriva with HandiHaler 18 mcg and inhalation capsules USING THE HANDIHALE R INHALE THE CONTENTS OF 1 CAPSULE BY MOUTH ONCE DAILY REGULARLY FOR MAINTENAN CE OF BREATH active Not Available Not Available No t Available duloxetine 20 mg capsule,del ayed release TAKE 1 CAPSULE BY MOUTH ONCE DAILY DIRECTED FOR 7 DAYS. 04/18 completed Not Available Not Available Not Available duloxetine 60 mg capsule,del ayed release TAKE 1 CAPSULE BY MOUTH EVERY DAY 04/18 completed Not Available Not Available Not Available Lactobacill us acidophilus 1 billion cell tablet Take 1 tablet every day by oral route as directed for 10 days. 04/18 completed Not Available Not Available Not Available pregabalin 50 mg capsule TAKE 1 CAPSULE BY MOUTH TWICE DAILY. active Not Available Not Available No t Available aspirin 1 81 mg tablet PO D 10/24 completed Not Available Not Available Not Available quetiapine ER 200 mg tablet,exte nded release 24 hr TAKE 1 TABLET BY MOUTH EVERY DAY AT BEDTIME 05/11 completed Not Available Not Available Not Available Oxtellar XR 600 mg tablet,exte nded release TAKE 1 TABLET (600 MG TOTAL) BY MOUTH DAILY. 04/18 completed Not Available Not Available Not Available Stimulant Laxative Plus 8.6 mg-50 mg tablet active Not Available Not Available Not Available Anoro Ellipta 62.5 mcg-25 mcg/actuati on powder for inhalation INHALE 1 PUFF INTO THE LUNGS ONCE DAILY 05/11 completed Not Available Not Available Not Available Jardiance 10 mg tablet TAKE 1 TABLET BY MOUTH DAILY. 04/18 completed Not Available Not Available Not Available Incruse Ellipta 62.5 mcg/actuati on powder for inhalation INHALE 1 PUFF INTO THE LUNGS EVERY DAY DIRECTED. 08/11 completed Not Available Not Available Not Available Breo Ellipta 200 mcg-25 mcg/dose powder for inhalation Inhale 1 puff every day by inhalatio n route as directed for 30 days. 10/24 completed Not Available Not Available Not Available Entresto 24 mg-26 mg tablet TAKE 1 TABLET BY MOUTH TWICE DAILY active Not Available Not Available No t Available Entresto 1/2 tablet PO BID 03/09 completed Not Available Not Available Not Available Trelegy Ellipta 200 mcg-62.5 mcg-25 mcg powder for inhalation INHALE 1 PUFF INTO THE LUNGS ONCE DAILY 05/11 completed Not Available Not Available Not Available Centrum Minis Women 50 Plus 1 daily 10/24 completed Not Available Not Available Not Available Vitals Date Recorded Body height Body mass index (BMI) Body weight Body temperature Oxygen saturation Oxygen saturation in Arterial blood by Pulse oximetry Heart rate Respiratory rate Systolic blood pressure Diastolic blood pressure Provider Name and Address Organization Details Last Updated DateTime 3 162.56 cm 30.5 kg/m2 24164 g 97.1 [degF] 98 % 98 % 57 /min 20 /min 123 mm[Hg] 57 mm[Hg] Pastora Pham [place] - [facility] & [place] 3 09:04:56 Date Recorded Body height Body mass index (BMI) Body weight Oxygen saturation Oxygen saturation in Arterial blood by Pulse oximetry Heart rate Respiratory rate Systolic blood pressure Diastolic blood pressure Provider Name and Address Organization Details Last Updated DateTime 4 162.56 cm 31.2 kg/m2 45597.0 9 g 97 % 97 % 68 /min 12 /min 100 mm[Hg] 60 mm[Hg] Edyta Wang [place] - [facility] & [place] 4 10:17:29 Date Recorded Body height Body mass index (BMI) Body weight Body temperature Oxygen saturation Oxygen saturation in Arterial blood by Pulse oximetry Heart rate Respiratory rate Systolic blood pressure Diastolic blood pressure Provider Name and Address Organization Details Last Updated DateTime 4 162.56 cm 30.8 kg/m2 24158.4 7 g 97.8 [degF] 99 % 99 % 75 /min 16 /min 95 mm[Hg] 45 mm[Hg] Chikis Medina [facility] & [place] 4 14:39:42 Date Recorded Body height Body mass index (BMI) Body weight Oxygen saturation Oxygen saturation in Arterial blood by Pulse oximetry Body temperature Heart rate Heart rate Respiratory rate Systolic blood pressure Diastolic blood pressure Provider Name and Address Organization Details Last Updated DateTime 4 162.56 cm 28.8 kg/m2 26930.5 2 g 96 % 96 % 97.3 [degF] 64 /min 64 /min 16 /min 142 mm[Hg] 72 mm[Hg] Nga [facility] & [place] 4 11:21:49 Date Recorded Body height Body mass index (BMI) Body weight Body temperature Heart rate Respiratory rate Systolic blood pressure Diastolic blood pressure Provider Name and Address Organization Details Last Updated DateTime 5 162.56 cm 27.7 kg/m2 24531.8 1 g 97.2 [degF] 85 /min 16 /min 90 mm[Hg] 42 mm[Hg] [facility] & [place] 5 13:59:53 Social History Question Answer Notes LastModified by Organizat ion Details LastModified Time Tobacco Smoking Status Current Every Day Smoker Former 1 PPD hx X 50 years. [facility] [place] 01/10/2023 11:38:36 What Is Your Level Of Alcohol Consumption? None [email or web address] Information not available 04/18/2023 What Is Your Level Of Caffeine Consumption? Heavy [email or web address] Information not available 04/18/2023 What Type Of Diet Are You Following? REGULAR [email or web address] Information not available 04/18/2023 Which Illicit Or Recreational Drugs Have You Used? Marijuana Daily [email or web address] Information not available 04/18/2023 What Was The Date Of Your Most Recent Tobacco Screening? 04/18/2023 [email or web address] Information not available 04/18/2023 What Is Your Current Pack Years? 30ormorepack years CHART_MERGE Information not available 08/10/2022 At What Age Did You Start Smoking Tobacco? 8 [email or web address] Information not available 04/18/2023 How Much Tobacco Do You Smoke? 0.5 PPD Smoking 10 Cigerettes Daily [email or web address] Information not available 08/01/2023 Do You Use Any Illicit Or Recreational Drugs? Yes [email or web address] Information not available 04/18/2023 Have You Used IV Drugs? No [email or web address] Information not available 04/18/2023 Sex: Unknown Functional Status Question Answer Note LastModified by Organization D etails LastModified Time What is your exercise level? None [email or web address] Information not available 04/18/2023 Mental Status None recorded. Family History Relationship Description Onset Age of this Age Resolved Age Notes LastModified by Organization Details LastModified Time Mother Malignant neoplasm of skin [email or web address] Not available 2024 13:47:24 Father Family history of cancer of colon [email or web address] Not available 2024 13:47:24 Father History of hypertension [email or web address] Not available 13:47:24 Father Myocardial infarction CHART_MERGE Not available 12:19:03 Father Coronary atherosclero sis [email or web address] Not available 2024 13:47:24 Unspecified Relation History of cancer of unknown primary site grandm other [email or web address] Not available 07/23/2024 13:47:24 Medical History Condition Response None Y Gynecological HistoryNo gynecological history recorded. Obstetrics History GPAL:G 0 P 0 0 0 0 Past Encounters Encounter ID Performer Location Encounter Start Date Encounter Closed Date Diagnosis/Indication Diagnosis SNOMED-CT Code Diagnosis ICD10 Code Diagnosis Note [id number] MD ALBERT Cort[place] Hematolog y & Oncology 1 [facility] [place] [address] 02/09/2022 09:02:45 02/09/2022 15:13:07 Chronic hyponatremia 47793774 E87.1 Suspect SIADH. Sodium remains stable at 126. Patient recommende d to continue on salt tabs twice daily. She is advised to continue to monitor fluid intake. Will continue to trend sodium levels. Normocytic anemia 812591 002 D64.9 Patient continues to demonstrat e persistent normocytic anemia. She has remained relatively stable. Will continue to trend levels. Chronic pa in due to malignant neoplastic disease 178778075 G89.3 Continue Percocet p.r.n.. Nausea 749857560 R11.0 Continue Phenergan p.r.n.. Squamous c ell carcinoma of right lung [id number] 4882957 C34.31 Clinically the patient remains stable. She continues to have some chronic cough and right-side d chest pain. She does have follow-up coming up later this month with Pulmonary at for further evaluation . Repeat laboratory evaluation today reviewed. Patient appropriat e to continue treatment as planned. She will receive cycle 23 durvalumab today. Patient to return to clinic in 2 weeks for considerat ion of cycle 24. Thank you for allowing me to participat e in the care of Ms. Antoine. Should you have any further questions or concerns please feel free to give me a call at [phone]. I personally spent 40 minutes in patient care on this date reviewing records, obtaining interim history, performing a physical exam, ordering and reviewing today's labs, counseling the patient, writing chemothera py orders, and documentin g the clinical informatio n in the electronic health record. [id number] MD ALBERT [facility] [address] [place] [address] 03/08/2022 08:43:41 03/08/2022 09:10:30 Squamous cell carcinoma of right lung [id number] C34.31 [id number] MD ALBERT [facility] [address] [place] [address] 03/09/2022 08:26:53 03/09/2022 09:15:35 Squamous cell carcinoma of right lung [id number] 0555221 C34.31 Patient actually looks quite well today. Seems to have recovered from her recent hospitaliz ation. No evidence of congestive heart failure at today's visit. Repeat laboratory evaluation today reviewed. She is noted to have some worsening of her hyponatrem ia as below. Patient appears appropriat e to continue with maintenanc e durvalumab . She will receive cycle 24 today. Patient to return to clinic in 2 weeks for considerat ion of cycle 25. Plan is to treat for a total of 26 cycles. Thank you for allowing me to participat e in the care of Ms. Antoine. Should you have any further questions or concerns please feel free to give me a call at . I personally spent 40 minutes in patient care on this date reviewing records, obtaining interim history, performing a physical exam, ordering and reviewing today's labs, counseling the patient, writing chemothera py orders, and documentin g the clinical informatio n in the electronic health record. Chronic hyponatremia 503 08992 E87.1 Suspect SIADH. Sodium back down a little to 123. Patient notes that she was taken off her sodium tabs during the hospitaliz ation for CHF. Will hold off restarting salt tabs for now given recent CHF. Discussed with patient that she needs to discuss her hyponatrem ia with Cardiology . Need to know there cutoff to consider restarting salt tabs. Normocytic anemia 981350 002 D64.9 Patient continues to demonstrat e persistent normocytic anemia. She has remained relatively stable. Will continue to trend levels. Nausea 686392188 R11.0 Continue Phenergan p.r.n.. 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 [id number] MD [facility]ERT [facility] [address] [place] [address] [place] [address] 03/23/2022 08:16:41 03/23/2022 08:41:29 Squamous cell carcinoma of right lung [id number] 5849921 C34.31 Clinically the patient continues to do well. She continues to tolerate treatment well without any significan t concerns. No evidence to suggest recurrent heart failure at this time. Repeat laboratory evaluation today reviewed. Patient appropriat e to proceed with treatment as planned. She will return to clinic in 2 weeks for considerat ion of her 26th and final cycle of maintenanc e durvalumab . Thank you for allowing me to participat e in the care of Ms. Antoine. Should you have any further questions or concerns please feel free to give me a call at [phone]. I personally spent 40 minutes in patient care on this date reviewing records, obtaining interim history, performing a physical exam, ordering and reviewing today's labs, counseling the patient, writing chemothera py orders, and documentin g the clinical informatio n in the electronic health record. Chronic hyponatremia 503 21350 E87.1 Suspect SIADH. Sodium back down to 120 today. Patient notes that she was taken off her sodium tabs during the hospitaliz ation for CHF. Will hold off restarting salt tabs for now given recent CHF. No significan t symptoms noted despite the hyponatrem ia. Recommend fluid restrictio n. Normocytic anemia 224004 002 D64.9 Patient continues to demonstrat e persistent normocytic anemia. She has remained relatively stable. Will continue to trend levels. Nausea 741276446 R11.0 Continue Phenergan p.r.n.. 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 [id number] MD [facility] [address] [place] [address] [place] [address] 04/06/2022 08:41:30 04/06/2022 09:01:15 Squamous cell carcinoma of right lung [id number] 2798730 C34.31 Clinically the patient remains relatively stable and seems to be doing well. She will receive her final cycle of durvalumab today. Recommende d for repeat laboratory evaluation . This remains without any significan t concerns in the patient appears appropriat e to continue with treatment as planned. Will plan to have her return to clinic in about [address] imaging to establish a new baseline post treatment. Thank you for allowing me to participat e in the care of Ms. Antoine. Should you have any further questions or concerns please feel free to give me a call at . I personally spent 40 minutes in patient care on this date reviewing records, obtaining interim history, performing a physical exam, ordering and reviewing today's labs, counseling the patient, writing chemothera py orders, and documentin g the clinical informatio n in the electronic health record. Chronic hyponatremia 503 18696 E87.1 Suspect SIADH. Sodium slightly improved to 123 today. Recommend continued fluid restrictio ns. Continue to hold salt tabs for now given recent CHF exacerbati on. If sodium noted trend below 1 20 May need to restart though. Normocytic anemia 259107 002 D64.9 Patient continues to demonstrat e persistent normocytic anemia. She has remained relatively stable. Will continue to trend levels. Nausea 933077589 R11.0 Continue Phenergan p.r.n.. 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 [id number] MD [facility] [address] [place] [address] [place] [address] 05/04/2022 08:19:39 05/04/2022 08:34:41 Squamous cell carcinoma of right lung [id number] 5801567 C34.31 Clinically the patient continues to do relatively well. She has now completed a full course of durvalumab immunother apy. Reviewed follow-up CT imaging. This is without any significan t concerns and in fact seems to show improvemen t in the recent right pleural effusion and infectious /inflammat ory changes in the bilateral lungs. Patient recommende d for continued surveillan ce. Will follow-up in [address] imaging at that time. Thank you for allowing me to participat e in the care of Ms. Antoine. Should you have any further questions or concerns please feel free to give me a call at . I personally spent 30 minutes in patient care on this date reviewing records including personally reviwing CT imaging, obtaining interim history, performing a physical exam, ordering and reviewing today's labs, counseling the patient, documentin g the clinical informatio n in the electronic health record, and communicat ing the results to the patient. Chronic hyponatremia 503 63619 E87.1 Suspect SIADH. Sodium slightly improved to 123 today. Recommend continued fluid restrictio ns. Continue to hold salt tabs for now given recent CHF exacerbati on. If sodium noted trend below 120 may need to restart though. Repeat level today remains stable at 128. Normocytic anemia 167666 002 D64.9 Patient continues to demonstrat e persistent normocytic anemia. She has remained relatively stable. Will continue to trend levels. repeat CBC today actually showed some mild improvemen t in the hemoglobin back up to the 11s. Nausea 825277520 R11.0 Continue Phenergan p.r.n.. 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 [id number] MD AL[facility] [address] [place] [address] DR MAZARIEGOS [address] [place] [address] 05/10/2022 08:01:35 05/10/2022 08:26:33 Chronic obstructive pulmonary disease 60675354 J44.9 Pulmonary emphysema 8743 3001 J43.9 Primary ma lignant neoplasm of lung 90769747 C34.90 History of non-small cell malignant neoplasm of lung 626154467 Z85.118 [id number] MD [facility] [address] [place] [address] DR MAZAR[address]OS [address] [place], [place] [address] 06/14/2022 10:16:57 06/14/2022 11:31:52 Chronic obstructive pulmonary disease 19503314 J44.9 Pulmonary emphysema 8743 3001 J43.9 Primary ma lignant neoplasm of lung 64779412 C34.90 History of non-small cell malignant neoplasm of lung 203301555 Z85.118 Congestive heart failure 20378386 I50.9 history of congestive heart failure with EF of 30 to 35% Chronic hyponatremia 503 63623 E87.1 History of pleural effusion 380318887 Z87.09 Acute bronchitis 6321121 2 J20.9 Pleural effusion 1186478 8 J90 [id number] MD [facility] [address] [place] [address] DR MAZARIEGOS [address] [place] [address] 07/13/2022 10:38:32 07/13/2022 11:04:01 Chronic obstructive pulmonary disease 42938366 J44.9 Pulmonary emphysema 8743 3001 J43.9 Primary ma lignant neoplasm of lung 60840539 C34.90 History of non-small cell malignant neoplasm of lung 670533254 Z85.118 Congestive heart failure 68323913 I50.9 history of congestive heart failure with EF of 30 to 35% Chronic hyponatremia 503 57490 E87.1 History of pleural effusion 406369251 Z87.09 Pleural effusion 7720488 8 J90 [id number] SHOLAOSITO TAI [facility] On[facility] [address] [place] [address] [place] [address] 08/05/2022 09:07:13 08/05/2022 09:44:04 Squamous cell carcinoma of right lung [id number] 9105246 C34.31 Diagnosis: 1. Squamous cell carcinoma of the right lower lobe, Stage IIIB, T4N2M0 with apparent mediastina l invasion Treatment: 1. Concurrent chemoradia tion with Carboplati n and Paclitaxel x 6 cycles (Started 01/01/2021)2 . Durvalumab (Started 03/09/2021 , Completed 04/06/2022 ) Patient presents August 05, 2022 for follow-up regarding squamous cell carcinoma. She has now completed a full course of durvalumab immunother apy. Repeat laboratory evaluation today. Labs pending at this time. CT imaging on 07/08/2022 was without any significan t concerns and indicates improvemen t in the recent right pleural effusion and infectious /inflammat ory changes in the bilateral lungs. Will repeat CT imaging in 3 months. Patient recommende d for continued surveillan ce. Patient to return to clinic in 3 months. Should you have any further questions or concerns please feel free to give me a call at [phone]. I personally spent 30 minutes in patient care on this date reviewing records including personally reviwing CT imaging, obtaining interim history, performing a physical exam, ordering and reviewing today's labs, counseling the patient, and documentin g the clinical informatio n in the electronic health record. Chronic hyponatremia 503 17195 E87.1 Suspect SIADH. Repeat laboratory evaluation today. Labs pending at this time. Normocytic anemia 740196 002 D64.9 Patient continues to demonstrat e persistent normocytic anemia. She has remained relatively stable. Will continue to trend levels. Repeat laboratory evaluation today. Labs pending at this time. Nausea 863042142 R11.0 Continue Phenergan p.r.n.. 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 [id number] Vishnu Contreras MD [facility]-[address] [place] [address] 09/09/2022 11:35:50 09/09/2022 11:36:39 Chronic pain due to malignant neoplastic disease 286117162 C80.1 Primary ma lignant neoplasm of lung 28267827 C34.90 [id number] MD [facility] [address] [place] [address] DR [address] [place] [address] 10/05/2022 09:04:39 10/05/2022 09:36:06 Chronic obstructive pulmonary disease 49839075 J44.9 Pulmonary emphysema 8743 3001 J43.9 Primary ma lignant neoplasm of lung 05830142 C34.90 History of non-small cell malignant neoplasm of lung 869651627 Z85.118 Congestive heart failure 91551335 I50.9 history of congestive heart failure with EF of 30 to 35% Chronic hyponatremia 503 76721 E87.1 History of pleural effusion 951123506 Z87.09 Acute exac erbation of chronic obstructive pulmonary disease 387587643 J44.1 Acute bronchitis 0938949 2 J20.9 [id number] Vishnu Contreras MD [facility] [place] [address] 10/07/2022 16:06:16 10/07/2022 16:29:36 Chronic pain due to malignant neoplastic disease 298022172 C80.1 [id number] MD ALBERT [facility] [address] [place] [address] [place] [address] 12/14/2022 08:30:46 12/14/2022 09:10:13 Squamous cell carcinoma of right lung [id number] 3126378 C34.31 squamous cell carcinoma of right lungDiagno sis:1. Squamous cell carcinoma of the right lower lobe, Stage IIIB, T4N2M0 with apparent mediastina l invasionTr eatment:1. Concurrent chemoradia tion with Carboplati n and Paclitaxel x 6 cycles (Started 01/01/2021)2 . Durvalumab (Started 03/09/2021 , Completed 04/06/2022 ).I have discussed with the patient the results of most recent CT scan of the chest from November 11, 2022. It did show chronic and stable changes. No new lesions was found. Patient completed immunother apy in March of 2022. We will continue Clinical monitoring . I am repeating CT scan of the chest with IV contrast in 4 months. Patient will need repeated ctDNA (Junaid) today. I have encouraged the patient to quit smoking. I am repeating CBC and CMP today. Chronic hyponatremia 503 72077 E87.1 Suspect SIADH From smoking /COPD.. Repeat laboratory evaluation today. Labs pending at this time. Normocytic anemia 283026 002 D64.9 Patient continues to demonstrat e persistent normocytic anemia. She has remained relatively stable. Will continue to trend levels. Repeat laboratory evaluation today. Labs pending at this time. Nausea 859718300 R11.0 Continue Phenergan p.r.n.. 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 Continuous dependence on cigarette smoking [id number] 44623 F17.210 I have discussed with the patient smoking cessation. She is not ready to quit yet. Screening for malignant neoplasm of colon 559089682 Z12.11 patient declined colonoscop y. Screening mammography 24 997933 Z12.31 patient declined mammogram. Central ve nous catheter in situ 552478584 Z95.828 Patient needs Port-A-Cat h flushed every month. [id number] MD AL[facility] [address] [place] [address] DR [address] [place] [address] 01/10/2023 11:23:11 01/10/2023 11:43:27 Chronic obstructive pulmonary disease 21265326 J44.9 Pulmonary emphysema 8743 3001 J43.9 Primary ma lignant neoplasm of lung 88154809 C34.90 History of non-small cell malignant neoplasm of lung 057262418 Z85.118 Congestive heart failure 31952883 I50.9 history of congestive heart failure with EF of 30 to 35% History of pleural effusion 608508506 Z87.09 [id number] MD ALBERT [facility] [address] [place] [address] [place] [address] 04/18/2023 08:36:16 04/18/2023 09:37:54 Squamous cell carcinoma of right lung 3375682432 3588626 C34.31 squamous cell carcinoma of right lung Diagnosis: 1. Squamous cell carcinoma of the right lower lobe, Stage IIIB, T4N2M0 with apparent mediastina l invasion Treatment: 1. Concurrent chemoradia tion with Carboplati n and Paclitaxel x 6 cycles (Started 01/01/2021) 2. Durvalumab (Started 03/09/2021 , Completed 04/06/2022 ).- I have discussed with the patient her CT scan results from March 29, 2023 that showed chronic changes. We will be repeating CT scan of the chest in 6 months from now. I have encouraged the patient to quit smoking. I have ordered circulatin g tumor DNA. I will see the patient back in 4 months. Chronic hyponatremia 503 93040 E87.1 Suspect SIADH From smoking /COPD. And from being on Aldactone. Repeat laboratory evaluation today. Labs pending at this time. Normocytic anemia 469176 002 D64.9 Patient continues to demonstrat e persistent normocytic anemia. She is on folic acid and iron. I am repeating iron studies today. 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 Seen by pain specialist but declined procedure . Continuous dependence on cigarette smoking 3889716497 08661 F17.210 I have discussed with the patient smoking cessation. She is not ready to quit yet. Screening for malignant neoplasm of colon 812440016 Z12.11 patient declined colonoscop y, will order Cologuard. Screening mammography 24 697094 Z12.31 patient declined mammogram. Central ve nous catheter in situ 910184808 Z95.828 Patient needs Port-A-Cat h flushed every month. Pain of le ft ankle joint 6220463655 7009248 M25.572 I have ordered x-ray.- Addendum, discuss with Radiology, x-ray showed 2 small fractures. Patient was referred urgently to orthopedic . [id number] MD [facility] [address] [place] [address] DR [address] [place] [address] 08/01/2023 10:04:10 08/01/2023 10:33:32 Chronic obstructive pulmonary disease 45838761 J44.9 Pulmonary emphysema 8743 3001 J43.9 Primary ma lignant neoplasm of lung 49348040 C34.90 History of non-small cell malignant neoplasm of lung 562925032 Z85.118 Congestive heart failure 40402663 I50.9 history of congestive heart failure with EF of 30 to 35% History of pleural effusion 620995494 Z87.09 [id number] [facility] [address] [place] [address] Dr ESCOTO , [place] [address] 10/25/2023 14:21:53 10/25/2023 14:59:12 Squamous cell carcinoma of right lung 6251315576 8765867 C34.31 Diagnosis: 1. Squamous cell carcinoma of the right lower lobe, Stage IIIB, T4N2M0 with apparent mediastina l invasion Treatment: 1. Concurrent chemoradia tion with Carboplati n and Paclitaxel x 6 cycles (Started 01/01/2021)2 . Durvalumab (Started 03/09/2021 , Completed 04/06/2022 ). - I have discussed with the patient her CT scan results from March 29, 2023 that showed chronic changes. We will be repeating CT scan of the chest in 6 months from now. I have encouraged the patient to quit smoking. I have ordered circulatin g tumor DNA. I will see the patient back in 4 months.Kathy dinero presents October 25, 2023 for follow-up regarding squamous cell carcinoma. She has now completed a full course of durvalumab immunother apy. Repeat laboratory evaluation today. Labs pending at this time. Patient is due for repeat CT imaging at this time. Patient recommende d for continued surveillan ce. She reports frustratio n with multiple appointmen ts. Patient to return to clinic in 6 months. Should you have any further questions or concerns please feel free to give me a call at . I personally spent 25 minutes in patient care on this date reviewing records including personally reviewing CT imaging, obtaining interim history, performing a physical exam, ordering and reviewing today's labs, counseling the patient, and documentin g the clinical informatio n in the electronic health record. Chronic hyponatremia 503 97645 E87.1 Suspect SIADH From smoking /COPD. And from being on Aldactone. Repeat laboratory evaluation today. Labs pending at this time. Normocytic anemia 176462 002 D64.9 Patient continues to demonstrat e persistent normocytic anemia. She is on folic acid and iron. Will monitor periodical ly. 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 Seen by pain specialist but declined procedure. Continuous dependence on cigarette smoking [id number] 84663 F17.210 Patient educated regarding smoking cessation. Screening for malignant neoplasm of colon 422625188 Z12.11 Cologuard was negative. Screening mammography 24 746984 Z12.31 Patient declined mammogram. Patient educated regarding the need to stay on top of all cancer screenings . Central ve nous catheter in situ 705202730 Z95.828 Patient needs Port-A-Cat h flushed every month. Pain of le ft ankle joint 3615533390 6657602 M25.572 Appears resolved. [id number] OSITO [facility]EN[facility] [address] [place] [address] [place] [address] 04/23/2024 11:09:59 04/23/2024 11:26:42 Squamous cell carcinoma of right lung [id number] 2979867 C34.31 Diagnosis: 1. Squamous cell carcinoma of the right lower lobe, Stage IIIB, T4N2M0 with apparent mediastina l invasion Treatment: 1. Concurrent chemoradia tion with Carboplati n and Paclitaxel x 6 cycles (Started 01/01/2021)2 . Durvalumab (Started 03/09/2021 , Completed 04/06/2022 ). - I have discussed with the patient her CT scan results from March 29, 2023 that showed chronic changes. We will be repeating CT scan of the chest in 6 months from now. I have encouraged the patient to quit smoking. I have ordered circulatin g tumor DNA. I will see the patient back in 4 months.Kathy dinero presents April 23, 2024 for follow-up regarding squamous cell carcinoma. She has now completed a full course of durvalumab immunother apy. Repeat laboratory evaluation today. Labs pending at this time. Patient is due for repeat CT imaging at this time. Patient recommende d for continued surveillan ce. Patient to return to clinic in 6 months. Should you have any further questions or concerns please feel free to give me a call at . I personally spent 25 minutes in patient care on this date reviewing records including personally reviewing CT imaging, obtaining interim history, performing a physical exam, ordering and reviewing today's labs, counseling the patient, and documentin g the clinical informatio n in the electronic health record. Chronic hyponatremia 503 99224 E87.1 Suspect SIADH From smoking /COPD. And from being on Aldactone. Repeat laboratory evaluation today. Labs pending at this time. Normocytic anemia 089353 002 D64.9 Patient continues to demonstrat e persistent normocytic anemia. She is on folic acid and iron. Will monitor periodical ly. 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 Seen by pain specialist but declined procedure. Continuous dependence on cigarette smoking 7514032531 80020 F17.210 Patient educated regarding smoking cessation. Screening for malignant neoplasm of colon 336974177 Z12.11 Cologuard was negative. Screening mammography 24 089087 Z12.31 Patient declined mammogram. Patient educated regarding the need to stay on top of all cancer screenings . Central ve nous catheter in situ 653526428 Z95.828 Patient needs Port-A-Cat h flushed every month. Pain of le ft ankle joint 5313196729 1785182 M25.572 Appears resolved. [id number] MD ALBERT [facility] [address] [place] [address] [place] [address] 07/23/2024 13:46:11 07/23/2024 14:25:03 Squamous cell carcinoma of right lung 3401401147 7051556 C34.31 Diagnosis: 1. Squamous cell carcinoma of the right lower lobe, Stage IIIB, T4N2M0 with apparent mediastina l invasion Treatment: 1. Concurrent chemoradia tion with Carboplati n and Paclitaxel x 6 cycles (Started 01/01/2021)2 . Durvalumab (Started 03/09/2021 , Completed 04/06/2022 ). - I have discussed with the patient her CT scan results from March 29, 2023 that showed chronic changes. We will be repeating CT scan of the chest in 6 months from now. I have encouraged the patient to quit smoking. I have ordered circulatin g tumor DNA. I will see the patient back in 4 months.Kathy dinero presents April 23, 2024 for follow-up regarding squamous cell carcinoma. She has now completed a full course of durvalumab immunother apy. Repeat laboratory evaluation today. Labs pending at this time. Patient is due for repeat CT imaging at this time. Patient recommende d for continued surveillan ce. Patient to return to clinic in 6 months. Should you have any further questions or concerns please feel free to give me a call at [phone]. I personally spent 25 minutes in patient care on this date reviewing records including personally reviewing CT imaging, obtaining interim history, performing a physical exam, ordering and reviewing today's labs, counseling the patient, and documentin g the clinical informatio n in the electronic health record. Chronic hyponatremia [id number] E87.1 Suspect SIADH From smoking /COPD. And from being on Aldactone. Repeat laboratory evaluation today. Labs pending at this time. Normocytic anemia [id number] D64.9 Patient continues to demonstrat e persistent normocytic anemia. She is on folic acid and iron. Will monitor periodical ly. 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 Seen by pain specialist but declined procedure. Continuous dependence on cigarette smoking [id number] F17.210 Patient educated regarding smoking cessation. Screening for malignant neoplasm of colon [id number] Z12.11 Cologuard was negative. Screening mammography 24 [id number] Z12.31 Patient declined mammogram. Patient educated regarding the need to stay on top of all cancer screenings . Central ve nous catheter in situ [id number] Z95.828 Patient needs Port-A-Cat h flushed every month. Pain of le ft ankle joint [id number] M25.572 Appears resolved. Health Concerns Section Related Observation LastModified by Organization Detai ls LastModified Time None Recorded Concern Status LastModified by Organization Details LastModified Time None Recorded Advance Directives Directive None Recorded Payers Encounter Date Sequence Insurance Name Policy Number Policy Rabago Covered Member ID Rabago Member ID Guarantor Name 04/18/2023 1 [employer] (MEDICARE REPLACEMENT HMO) Beverley Antoine [id number] Beverley Antoine 08/01/2023 1 [employer] (MEDICARE REPLACEMENT/AD VANTAGE - PPO) Beverley Antoine [id number] Beverley Antoine 10/25/2023 1 [employer] (MEDICARE REPLACEMENT/AD VANTAGE - PPO) Beverley Antoine [id number] Beverley Antoine 04/23/2024 1 [employer] (MEDICARE REPLACEMENT/AD VANTAGE - PPO) Beverley Antoine [id number] Beverley Antoine Notes Date Note Type Note Provider Name and Address Organization Details Recorded Time 04/18/20 23 text/htm l 57 y/o female with a diagnosis of NSCLC of the right lung. The patient has been a smoker for over 40 years and typically smoked about 1 pack per day. She has been trying to cut back since her diagnosis of lung cancer. The patient reports a history of seizures since childhood though she has not been on any chronic medication for this diagnosis. Per her history seems to typically have simple partial seizures with lip smacking, blank stares, and picking at clothing. Typically these episodes last up to 15 minutes. Typically this is associated with a period of confusion following resolution of the seizure symptoms. She has also occasionally had tonic clonic seizures. She had 1 such episode on 11/10/2020. Unfortunately she had persistent symptoms that were not resolving with this seizure episode and EMS was called. The patient was ultimately airlifted to the [facility]. She was loaded with Depakote and her seizure activity was controlled. EEG showed activity in the right temporal lobe with focal cortical irritability. Brain MRI with and without contrast was negative except for a few scattered nonspecific white matter hyperintensities. Chest x-ray showed patchy airspace opacity at the left base and a right hilar mass. The patient was recommended for CT scan for further evaluation. CT chest without contrast showed a masslike consolidation in the superior segment of the right lower lobe with cavitation. This mass was inseparable from the right hilum and posterior mediastinum. The mass resulted in severe narrowing of the bronchus intermedius and was also associated with additional scattered areas of mild ground-glass opacity within the right upper and left lower lobes. Patient underwent bronchoscopy with EBUS on 11/17/2020. A bonastent to the bronchus intermedius was placed. Biopsy of the right lower lobe mass and a 4 L lymph node showed evidence of squamous cell carcinoma. 4R and station 7 lymph nodes were negative for malignancy. She underwent a PET-CT on 12/13/2020 which showed an indeterminate cavitated hypermetabolic process in the medial aspect of the right lower lobe with evidence of stenting of the right bronchus intermedius consistent with the known primary lung cancer and borderline hypermetabolism in a precarinal lymph node. There was no evidence of distant metastatic disease. The patient was recommended for treatment with concurrent chemoradiation with carboplatin and paclitaxel. We discussed that if she shows a positive response to treatment that we would then want to proceed with maintenance immunotherapy with durvalumab for 1 year following the completion of chemoradiation. Prior to initiating treatment the patient requested to have a port placed. This was successfully completed and the patient started treatment on 12/31/2020. She completed a total of 6 cycles of carboplatin and paclitaxel with concurrent radiation therapy. The patient was supposed to have repeat CT imaging following the completion of chemoradiation but we ran into issues getting these scheduled. She went on to start immunotherapy maintenance with Durvalumab. She was finally able to get in for her CT scan after 2 cycles of durvalumab on 03/30/2021. This showed an interval decrease in the size of the right lower lobe cavitary mass but with continued atelectasis of the right middle lobe and some new findings in the right upper and lower lobes consistent with radiation pneumonitis. The patient was also noted to have interval development of multiple bilateral pulmonary nodules all measuring less than 6 mm in size. She was recommended to remain on treatment with durvalumab. In follow-up with Dr. Bullock she has shown continued changes in the lung on chest x-ray. She was referred to Dr. Ziegler for consideration of repeat bronchoscopy. She also underwent repeat CT imaging on 06/17/2021 prior to cycle 8. This showed continued interval decrease in the size of the right lower lobe cavitary mass, interval decrease in the size of the mediastinal nodes to draw now back to normal by size criteria, near resolution of the mild scattered ground-glass of the left lung and left pulmonary nodules, and evolving radiation pneumonitis with fibrosis in the right upper and lower lobes. It also showed stable atelectasis with complete collapse of the right middle lobe. The patient was recommended to remain on treatment with durvalumab. I also recommended she be re-evaluated by Pulmonary and be considered for a possible repeat bronchoscopy. Unfortunately there has been several delays in getting his range. However the patient did finally follow-up with Dr. Ziegler in August. He is considering repeat bronchoscopy with removal of the pulmonary stent but is wanted a repeat CT imaging of the chest prior to the procedure. The patient underwent an MRI brain without contrast on 09/18/2021 for her neurologist due to her history of seizures. It remained without any evidence of metastatic disease. Repeat CT chest on 09/29/2021 showed stable findings in the right lung with mild progression of a small partially loculated right pleural effusion. There was improvement in the patchy ground-glass changes throughout the right lung but interval development moderate patchy ground-glass of the left lung. The patient continued to show mild stable mediastinal adenopathy. In early October 2021 the patient had her pulmonary stent removed . Apparently she was told that she had quite a bit of scar tissue in the lungs though in was recommended for further procedures in the future. On 11/10/2021 she presented to the ER for a grand mal seizure and was transferred to [facility]. While there she underwent additional imaging. Chest x-ray showed a prominence at the right hilum. CT scan showed a masslike consolidation in the superior segment of the right lower lobe with cavitation that was inseparable from the right hilum. It also showed severe narrowing of the bronchus intermedius. Following 20 cycles of maintenance durvalumab the patient did undergo PET-CT on 01/09/2022 for further evaluation of the changes seen on her CT imaging. This did not show any abnormal hypermetabolic changes within the neck, chest, abdomen, or pelvis. It did show a stable non-hypermetabolic 1.1 cm superior mediastinum lymph node, a moderate non-hypermetabolic right pleural effusion, and stable post therapy fibrosis in the right perihilar region. Following the patient's 23rd cycle of maintenance Durvalumab she was hospitalized 2.5 weeks with congestive heart failure. She had thoracentesis with the fluid reportedly being negative for malignancy. After the delay due to her hospitalization she returned for continued treatment with immunotherapy. She completed a total of 26 cycles of durvalumab with her final cycle being on 04/06/2022. Follow-up CT imaging of the chest on 04/27/2022 showed near complete resolution of the ground-glass disease of the bilateral lungs without any significant change in the prominent soft tissue in the right hilum. She was also noted to have a decrease in the small right pleural effusion with smooth right posterior pleural thickening. The patient returns today for continued follow-up. Patient presents August 05, 2022 for follow-up regarding her squamous cell carcinoma. The patient reports that she is doing very well. She denies any persistent wheezing. No hemoptysis. No pain is noted in the back. She continues to keep her appointments with UC, pulmonology, and cardiology.-- On December 14, 2022 patient presented for follow-up visit. She continues to smoke 5-6 cigarettes a day. She has chronic shortness of breath which has been stable. She has intermittent cough but no hemoptysis. She continues to have night sweats. Her weight has been fluctuating. She reports no black or dark stool. She denies any change in bowel habits. Interestingly, she has never had colonoscopy or mammogram and she declined it. She stated the less she knows, the better off . CT scan of the chest from November 11, 2022 showed stable chronic changes. No new findings. Patient has an appointment with Neurology in 1 month. She has an appointment with pain clinic sometime next week.- On April 18, 2023 patient comes in today for follow-up visit she is in a wheelchair. She had another seizure last week and she twisted left ankle and she can not walk. Patient reports severe pain in the left ankle. She had recent CT scan and she comes in today to discuss the results. She smokes few cigarettes a day. Patient did not go for her mammogram. By reviewing her lab, patient has chronic hyponatremia from being on Aldactone. Patient is scheduled to see cardiology and Cardiothoracic surgery for leaky cardiac valve. Of note, she has never had colonoscopy in the past. She has Port-A-Cath on the left side due to poor venous access. Circulating tumor DNA from March 31, 2023 was negative. Patient is on folic acid and oral iron.- CT scan of the chest from March 29, 2023 showed chronic changes. 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 Patient is status post radiation and chemotherapy. Patient received carboplatin and Paclitaxel, she received durvalumab per Dr. Fang. Medications in the past have included O2, Advair, Incruse/Trelegy, albuterol I, marilouo becky, Tessalon Patricia. Dyspnea, timing with exertion, and again is mild in severity. She denies associated fever, chills, night sweats, hemoptysis, pleurisy, chest pain, cough, productive sputum, orthopnea, PND, syncope, palpitations, dizziness or chest pressure presently. Modified Wells criteria again of 0. Patient had another seizure March 2023, was transferred to a tertiary care facility. She was intubated at that time. She states her lungs are doing great, states she is felt better than she has for a long time concerning her pulmonary status. Her insurance is denying Advair we will switch over to Breo 200,1 puff daily. She is smoking half a pack a day. Long discussion about complete and lifelong tobacco cessation.The patient voices no cardiopulmonary complaints, no GI complaints, no neurologic complaints today.Quality and context of sputum is clear, thin, mucousy and rare. Dyspnea, timing with exertion, mild in severity, and relieved with rest. Patient had repeat bronchoscopy at [facility] June 2022: Revealed narrowed bronchus intermedius but patent, negative for malignant cells, fungal cultures negative, fungal stain negative, AFB MTB DNA PCR negative . Fungal culture and AFB culture negative. Previous ABG in January 2022 was 7.43, pCO2 38, PO2 39 on 40% O2. She was transferred to [facility] in 2021, COVID-19 negative at that time. She was treated for congestive heart failure at [facility] in 2021.he was treated at [facility] for congestive heart failure. note she has an ejection fraction of 30-35% noted at [facility] in January 2022. She is on Advair/Incruse or Trelegy, she voiced understanding. Also she underwent bronchoscopy January 2022 and right thoracentesis of 700 cc, both were for negative for malignancy. In a previous visit placed on prednisone taper and doxycycline. She voices no pulmonary, neurologic or GI complaints today.She denies allergy/side effects / adverse effects from Zithromax or steroids/prednisone. CT SCAN OF CHEST DONE MARCH 29, 2023 BELOW:COMPARISON: CT chest, 11/01/2022, 07/08/2022, and 06/22/2021 and PET/CT 01/09/2022TECHNIQUE: Multiple axial images through the chest were obtained following the administration ofintravenous contrast. This data was used to perform coronal and sagittal reconstructions. [employer] Auto mA automated exposure control was utilized for radiation dose reduction.FINDINGS: There is a 1.1 x 1.3 cm lymph node to the right of the proximal thoracic esophagus. Thisis not significantly changed from 06/22/2021 and was not previously hypermetabolic. There is nonew pathologic intrathoracic lymphadenopathyThe heart is normal in size with apparent left ventricular dilatation. There is an infusion portcatheter within the left anterior chest wall with the tip of the catheter in the upper right atrium viaa left subclavian approach. There are granulomatous calcifications in the mediastinum and lefthilum. The thyroid gland is unremarkable.There is right-sided volume loss, unchanged from June. There is a minimal right pleural effusion,unchanged from the recent prior and decreased from the more remote priors. There is stable rightperihilar fibrosis. There are subpleural bands involving the right middle and lower lobes a fewcentimeters above the right hemidiaphragm, unchanged.There is no new pulmonary nodule. There is a calcified granuloma in the left apex. There is minorparaseptal emphysema in the right upper lobe. The airways are patent.There is a 1.5 cm calcification in the anterior superior right hepatic lobe. Granulomatouscalcifications involve the spleen. There is no adrenal mass. There are moderate right anterolateralendplate osteophytes at T3/4 and from T6/7 through T9/10. There is no suspicious osseous lesionIMPRESSION:1. Stable right perihilar fibrosis and right-sided volume loss without evidence of local recurrence ormetastatic disease2. Minimal right pleural effusion, unchanged from the recent prior3. Mildly enlarged right paraesophageal lymph node. This is not significantly changed from May2021 and is therefore benignNOTE: The patient has had a total of 3 previous CTs and cardiac nuclear medicine studies withinthe past 12 months*Recommendations for follow up/management of pulmonary nodules will be based on the [facility] criteriaNOTE: Any incidentally noted liver lesions equal to or less than 5 mm, cystic lesions in the kidneysless than 1 cm, and/or adrenal lesions equal to or less than 1 cm, generally are considered highlylikely to be benign and no additional evaluation is recommended, unless specifically mentioned inthe impression.Transcribed Date: 03/29/2023 9:59 AMTranscribed By: Daysi BrooksferReported by: Daysi BrooksferSigned by: Dana BrooksDateSigned:03/29/2023 9:59 CT SCAN OF CHEST DONE NOVEMBER 01, 2022 BELOW:CT CHEST WITH CONTRAST, 11/01/2022:CLINICAL HISTORY: Restaging of squamous cell carcinoma of the right lungCOMPARISON: CT chest, 07/08/2022, 04/27/2022, and 06/22/2021 and PET/CT, 01/09/2022TECHNIQUE: Multiple axial images through the chest were obtained following the administration ofintravenous contrast. This data was used to perform coronal and sagittal reconstructions. Digly's Auto mA automated exposure control was utilized for radiation dose reduction.FINDINGS: There is a 1.1 x 1.5 cm lymph node to the right of the proximal thoracic esophagus. Thisis not significantly changed from 01/09/2022 and was not hypermetabolic at that time. There is nonew pathologic intrathoracic lymphadenopathy.The heart is mildly enlarged, with apparent left ventricular dilatation. The left ventricular dilatationis new from 04/27/2022. There is an infusion port within the left anterior chest wall with the tip ofthe catheter in the upper right atrium. The thyroid gland is unremarkableThere is right-sided volume loss, unchanged from June, but progressed from the more remotepriors. There is a trace right pleural effusion, unchanged from June and improved from the moreremote priors. There is right perihilar fibrosis, not significantly changed. There is a subpleural bandwithin the right middle and lower lobes a few centimeters above the diaphragm, stable.There is no new pulmonary nodule. There is a calcified granuloma in the left upper lobe. There isminor paraseptal emphysema in the right upper lobe. The airways are patent.There is a 1.3 cm calcification within the anterior superior right hepatic lobe. Granulomatouscalcifications involve the spleen. The visualized upper abdominal structures are otherwiseunremarkable. There is an old healed fracture of the right eighth rib. There is no suspicious osseouslesionIMPRESSION:1. Stable right perihilar fibrosis and right-sided volume loss without evidence of local recurrence ormetastatic disease2. Stable trace right pleural effusion3. Mildly enlarged right paraesophageal lymph node, not significantly changed from December, atwhich time it was not hypermetabolic4. Mild cardiomegaly with apparent new left ventricular dilatation. Consider echocardiogram forfurther characterizationNOTE: The patient has had a total of 4 previous CTs and cardiac nuclear medicine studies withinthe past 12 months*Recommendations for follow up/management of pulmonary nodules will be based on the [facility] criteriaNOTE: Any incidentally noted liver lesions equal to or less than 5 mm, cystic lesions in the kidneysless than 1 cm, and/or adrenal lesions equal to or less than 1 cm, generally are considered highlylikely to be benign and no additional evaluation is recommended, unless specifically mentioned inthe impression.Transcribed Date: 11/01/2022 11:35 AMTranscribed By: Dana BrooksReported by: Daysi BrooksferSigned by: Dana BrooksDateSigned:11/01/2022 11:35CT SCAN OF CHEST DONE JULY 08, 2022 BELOW:Comparison: 04/27/2022 and older studies. Correlation is also made with PET/CT from 01/09/2022.Findings:Mildly enlarged right paraesophageal node at level of the thoracic inlet, again noted. Measures 1.5x 1.4 cm. Was not hypermetabolic in the prior PET/CT. No other enlarged nodes are identified in thechest. Several calcified left hilar nodes, again noted. Left subclavian central venous MediPortcatheter, again noted, tip in the SVC. Heart size is normal. No significant pericardialfluid/thickening. Small to moderate mostly dependent right pleural effusion, mildly decreased in size.Mild diffuse smooth pleural thickening associated with the pleural effusion, about the same. Novisible left pleural fluid. Volume loss of the right chest with shift of the mediastinum to the right,stable.Visualized portions of the upper abdomen included in this examination of the chest again show acalcified granuloma of the partially visualized liver right lobe.Lung window images again show mild emphysema. Moderate right upper, right middle, and right lobeperihilar confluent opacity associated with traction bronchiectasis, stable, most consistent withpostradiation therapy fibrosis. Scattered regions of subsegmental atelectasis with parenchymalbands of the right upper, right middle, and right lower lobes, again noted. Calcified granuloma of theleft upper lobe, again noted. No significant pulmonary nodules are identified.Bone window images show no significant lytic or sclerotic bone lesions.IMPRESSION:1. Right perihilar postradiation fibrosis, about the same. Underlying mass or adenopathy cannot beexcluded. For future exams, IV contrast is recommended, if possible.2. Small to moderate mostly dependent right pleural effusion, mildly decreased in size, associatedwith mild diffuse smooth pleural thickening, stable. The effusion is probably reactive and related tothe radiation treatment. Malignant pleural effusion cannot be excluded.Note: Recommendations for follow-up of incidental pulmonary nodules are based on [facility] criteria.Transcribed Date: 07/08/2022 1:57 PMTranscribed By: Huy CortezReported by: Huy CortezSigned by: Huy CortezDateSigned:07/08/2022 1:57 PMCT CHEST DONE April 27, 2022 and PET scan done 01/09/2022 as below:COMPARISON: CTA chest 02/16/2022 as well as older chest studies and a PET CT examination of01/09/2022FINDINGS: Imaging of the low neck and the axilla is unremarkable. He has access port in place fromthe left. Left innominate vein and superior vena cava are patent. Heart size within normal limits. Nopericardial effusion.Persistent diffuse soft tissue investment diffusely about the right hilum but most prominently at itsinferior aspect, without bronchial obstruction. No pathologic mediastinal or hilar lymphadenopathywith interval resolution of left hilar lymphadenopathy.Mild to moderate emphysema. Near complete resolution of the groundglass opacity seen in thebilateral lung adam on prior study most compatible with resolution of infectious/inflammatorypneumoni tis.Small dependent right pleural effusion improved over prior study. Stable smooth enhancing pleuralthickening right posterior hemithorax as before.No aggressive osseous lesions. Central heart disc protrusion producing moderate spinal stenosis atT7-8 as before.Limited imaging upper abdomen notable for stable calcified subcapsular lesion right hepatic lobeIMPRESSION: 1. Interval near complete resolution groundglass disease of the bilateral lung seen onprior study most compatible with resolution infectious/inflammatory pneumonitis2. No significant change in the soft tissue investing the right hilum most likely related toposttherapy changes, considering the lack of hypermetabolism on the prior PET/CT evaluation.Recurrent neoplasia cannot be excluded.3. No evidence of distant metastasis of the chest or upper abdomen.4. Interval decrease in the small right pleural effusion and smooth right posterior pleural thickening,likely reactive but malignant effusion not entirely excluded.NOTE: Management/follow-up of any incidental pulmonary nodules will be based on the [facility] criteria.Any incidentally noted liver lesions equal to or less than 5 mm, cystic lesions in the kidneysless than 1 cm, and/or adrenal lesions equal to or less than 1 cm, generally are considered highlylikely to be benign and no additional evaluation is recommended, unless specificallymentioned in the impression.This report is generated using voice recognition computer software. Inadvertent errors may haveoccurred while dictating report. Common sense approach is appreciated and do not hesitate to callfor clarification when necessary.Transcribed Date: 04/27/2022 10:34 AMTranscribed By: Aashish BrownReported by: Aashish BrownSigned by: Aashish BrownDateSigned:04/27/2022 10:34COMPARISON: Chest CT, 09/29/2021, 06/07/2021, and 03/30/2021, PET/CT, 12/13/2020, and CT abdomenand pelvis, 08/08/2019TECHNIQUE: Attenuation corrected and non-attenuation corrected PET images from the level ofthe orbits through the level of the mid thighs were obtained approximately one hour following theintravenous administration of 11.08 mCi F-18 FDG. Multiple unenhanced axial CT images from thelevel of the orbits through the level of the mid thighs were also obtained. This data was used toperform fused images in all 3 planes as well as 3-D MIP images. The patient's blood glucose levelprior to the exam was 131 mg/dL.FINDINGS:Medistinal blood pool SUV: 1.2Background liver SUV: 2.1There are no pathologic hypermetabolic foci within the neck, chest, abdomen, or pelvis. There isincidental hypermetabolism of the bilateral scalene muscles and the bilateral gluteus musculature,left greater than right. There is physiologic small bowel activity in the right abdomen.There is a 1.1 x 1.3 cm lymph node in the superior mediastinum to the right of the esophagus whichis not visually hypermetabolic with a peak SUV of 1.7. This is not significantly changed in size fromMay 2021. There is a small to moderate right pleural effusion associated with thickening of theposterior pleura of the mid right hemithorax. This is not visually hypermetabolic with a peak SUV of1.8. There is right perihilar consolidation associated with bronchiectasis, unchanged from therecent prior. This is not visually hypermetabolic, compatible with posttherapy fibrosisThere is a 1.3 cm subcapsular calcification within the posterior superior right hepatic lobe,unchanged from 2019. Granulomatous calcifications involve the spleen. The abdominal aorta ismildly calcified without aneurysm. There is moderate to large fecal material throughout the colon.There is focal diastases of the anterior pelvic wall to the right of patient's midline incision. Uterus isabsent. There is moderate facet arthropathy at L4/5. The CT localization images are otherwiseunremarkableIMPRESSION :1. No hypermetabolic disease within the neck, chest, abdomen, or pelvis2. 1.1 cm lymph node in the superior mediastinum to the right of the esophagus, which isunchanged from May 2021 and not hypermetabolic3. Small to moderate right pleural effusion associated with thickening of the posterior pleura of themid right hemithorax, also not hypermetabolic4. Stable posttherapy fibrosis in the right perihilar region5. Findings suggesting constipationTranscribed Date: 01/10/2022 11:31 AMTranscribed By: Dana BrooksReported by: Dana BrooksSigned by: Dana BrooksDateSigned:01/10/2022 11:31 This note was completed using a dictation system. We do our best to minimize mistakes by this dictation system, but some dictation system mistakes cannot be identified. If something does not make sense and/ or appears in error please do not hesitate to contact our office. We can correct the record and/ or clarify for you.The patient was warned no driving motorized vehicles or operating heavy machinery while fatigued, sleepy or drowsy, she voiced understanding and stated she would not.Patient was instructed to read the side effect package profile very carefully on all medications prescribed, and to stop medications immediately and go to ER if the patient has any problems, she voiced understanding. Patient was instructed to go over side effects /adverse effects / drug interactions with all of the prescribed and [id number] medications with a pharmacist, she again voiced understanding. The patient was instructed to go to ER if the patient does not improve or worsens, she again voiced understanding.I went over most recent CT scan of chest in detail with the patient, I answered all of the patient's questions, the patient voiced understanding and had no further questions.The patient declines any further pulmonary/thoracic diagnostic procedures at the present time for abnormalities noted on most recent CT scan of chest.Patient was warned if the patient does not follow up with the CT scan of chest as recommended per oncology, and follow-up with results of CT scan chest with oncology this may result in future ill health, sickness, and even , she again voiced understanding. Migel Bullock MD [address] [facility],[address], [place], [address], [facility] & [place] 08/01/2023 10:36:37 10/25/19 24 text/htm l 58 y/o female with a diagnosis of NSCLC of the right lung. The patient has been a smoker for over 40 years and typically smoked about 1 pack per day. She has been trying to cut back since her diagnosis of lung cancer. The patient reports a history of seizures since childhood though she has not been on any chronic medication for this diagnosis. Per her history seems to typically have simple partial seizures with lip smacking, blank stares, and picking at clothing. Typically these episodes last up to 15 minutes. Typically this is associated with a period of confusion following resolution of the seizure symptoms. She has also occasionally had tonic clonic seizures. She had 1 such episode on 11/10/2020. Unfortunately she had persistent symptoms that were not resolving with this seizure episode and EMS was called. The patient was ultimately airlifted to the [facility]. She was loaded with Depakote and her seizure activity was controlled. EEG showed activity in the right temporal lobe with focal cortical irritability. Brain MRI with and without contrast was negative except for a few scattered nonspecific white matter hyperintensities. Chest x-ray showed patchy airspace opacity at the left base and a right hilar mass. The patient was recommended for CT scan for further evaluation. CT chest without contrast showed a masslike consolidation in the superior segment of the right lower lobe with cavitation. This mass was inseparable from the right hilum and posterior mediastinum. The mass resulted in severe narrowing of the bronchus intermedius and was also associated with additional scattered areas of mild ground-glass opacity within the right upper and left lower lobes. Patient underwent bronchoscopy with EBUS on 11/17/2020. A bonastent to the bronchus intermedius was placed. Biopsy of the right lower lobe mass and a 4 L lymph node showed evidence of squamous cell carcinoma. 4R and station 7 lymph nodes were negative for malignancy. She underwent a PET-CT on 12/13/2020 which showed an indeterminate cavitated hypermetabolic process in the medial aspect of the right lower lobe with evidence of stenting of the right bronchus intermedius consistent with the known primary lung cancer and borderline hypermetabolism in a precarinal lymph node. There was no evidence of distant metastatic disease. The patient was recommended for treatment with concurrent chemoradiation with carboplatin and paclitaxel. We discussed that if she shows a positive response to treatment that we would then want to proceed with maintenance immunotherapy with durvalumab for 1 year following the completion of chemoradiation. Prior to initiating treatment the patient requested to have a port placed. This was successfully completed and the patient started treatment on 12/31/2020. She completed a total of 6 cycles of carboplatin and paclitaxel with concurrent radiation therapy. The patient was supposed to have repeat CT imaging following the completion of chemoradiation but we ran into issues getting these scheduled. She went on to start immunotherapy maintenance with Durvalumab. She was finally able to get in for her CT scan after 2 cycles of durvalumab on 03/30/2021. This showed an interval decrease in the size of the right lower lobe cavitary mass but with continued atelectasis of the right middle lobe and some new findings in the right upper and lower lobes consistent with radiation pneumonitis. The patient was also noted to have interval development of multiple bilateral pulmonary nodules all measuring less than 6 mm in size. She was recommended to remain on treatment with durvalumab. In follow-up with Dr. Bullock she has shown continued changes in the lung on chest x-ray. She was referred to Dr. Ziegler for consideration of repeat bronchoscopy. She also underwent repeat CT imaging on 06/17/2021 prior to cycle 8. This showed continued interval decrease in the size of the right lower lobe cavitary mass, interval decrease in the size of the mediastinal nodes to draw now back to normal by size criteria, near resolution of the mild scattered ground-glass of the left lung and left pulmonary nodules, and evolving radiation pneumonitis with fibrosis in the right upper and lower lobes. It also showed stable atelectasis with complete collapse of the right middle lobe. The patient was recommended to remain on treatment with durvalumab. I also recommended she be re-evaluated by Pulmonary and be considered for a possible repeat bronchoscopy. Unfortunately there has been several delays in getting his range. However the patient did finally follow-up with Dr. Ziegler in August. He is considering repeat bronchoscopy with removal of the pulmonary stent but is wanted a repeat CT imaging of the chest prior to the procedure. The patient underwent an MRI brain without contrast on 09/18/2021 for her neurologist due to her history of seizures. It remained without any evidence of metastatic disease. Repeat CT chest on 09/29/2021 showed stable findings in the right lung with mild progression of a small partially loculated right pleural effusion. There was improvement in the patchy ground-glass changes throughout the right lung but interval development moderate patchy ground-glass of the left lung. The patient continued to show mild stable mediastinal adenopathy. In early October 2021 the patient had her pulmonary stent removed . Apparently she was told that she had quite a bit of scar tissue in the lungs though in was recommended for further procedures in the future. On 11/10/2021 she presented to the ER for a grand mal seizure and was transferred to [facility]. While there she underwent additional imaging. Chest x-ray showed a prominence at the right hilum. CT scan showed a masslike consolidation in the superior segment of the right lower lobe with cavitation that was inseparable from the right hilum. It also showed severe narrowing of the bronchus intermedius. Following 20 cycles of maintenance durvalumab the patient did undergo PET-CT on 01/09/2022 for further evaluation of the changes seen on her CT imaging. This did not show any abnormal hypermetabolic changes within the neck, chest, abdomen, or pelvis. It did show a stable non-hypermetabolic 1.1 cm superior mediastinum lymph node, a moderate non-hypermetabolic right pleural effusion, and stable post therapy fibrosis in the right perihilar region. Following the patient's 23rd cycle of maintenance Durvalumab she was hospitalized 2.5 weeks with congestive heart failure. She had thoracentesis with the fluid reportedly being negative for malignancy. After the delay due to her hospitalization she returned for continued treatment with immunotherapy. She completed a total of 26 cycles of durvalumab with her final cycle being on 04/06/2022. Follow-up CT imaging of the chest on 04/27/2022 showed near complete resolution of the ground-glass disease of the bilateral lungs without any significant change in the prominent soft tissue in the right hilum. She was also noted to have a decrease in the small right pleural effusion with smooth right posterior pleural thickening. The patient returns today for continued follow-up. - On December 14, 2022 patient presented for follow-up visit. She continues to smoke 5-6 cigarettes a day. She has chronic shortness of breath which has been stable. She has intermittent cough but no hemoptysis. She continues to have night sweats. Her weight has been fluctuating. She reports no black or dark stool. She denies any change in bowel habits. Interestingly, she has never had colonoscopy or mammogram and she declined it. She stated the less she knows, the better off . CT scan of the chest from November 11, 2022 showed stable chronic changes. No new findings. Patient has an appointment with Neurology in 1 month. She has an appointment with pain clinic sometime next week.- On April 18, 2023 patient comes in today for follow-up visit she is in a wheelchair. She had another seizure last week and she twisted left ankle and she can not walk. Patient reports severe pain in the left ankle. She had recent CT scan and she comes in today to discuss the results. She smokes few cigarettes a day. Patient did not go for her mammogram. By reviewing her lab, patient has chronic hyponatremia from being on Aldactone. Patient is scheduled to see cardiology and Cardiothoracic surgery for leaky cardiac valve. Of note, she has never had colonoscopy in the past. She has Port-A-Cath on the left side due to poor venous access. Circulating tumor DNA from March 31, 2023 was negative. Patient is on folic acid and oral iron.- CT scan of the chest from March 29, 2023 showed chronic changes. Patient presents October 25, 2023 for follow-up regarding her squamous cell carcinoma. The patient reports that she is doing well. She reports she is no longer a candidate for any cardiovascular surgeries. She denies chest or abdominal pain. She denies palpitations or shortness of breath. She denies fever, chills, or night sweats. She denies any persistent wheezing or hemoptysis. She continues to keep her appointments with UC, pulmonology, and cardiology. SHOLA MAY, OSITO [address] [place] [address],[address], [place], [place], [address], [place] - [facility] - [place] & [place] 10/25/2023 15:20:22 04/23/20 24 text/htm l 58 y/o female with a diagnosis of NSCLC of the right lung. The patient has been a smoker for over 40 years and typically smoked about 1 pack per day. She has been trying to cut back since her diagnosis of lung cancer. The patient reports a history of seizures since childhood though she has not been on any chronic medication for this diagnosis. Per her history seems to typically have simple partial seizures with lip smacking, blank stares, and picking at clothing. Typically these episodes last up to 15 minutes. Typically this is associated with a period of confusion following resolution of the seizure symptoms. She has also occasionally had tonic clonic seizures. She had 1 such episode on 11/10/2020. Unfortunately she had persistent symptoms that were not resolving with this seizure episode and EMS was called. The patient was ultimately airlifted to the [facility]. She was loaded with Depakote and her seizure activity was controlled. EEG showed activity in the right temporal lobe with focal cortical irritability. Brain MRI with and without contrast was negative except for a few scattered nonspecific white matter hyperintensities. Chest x-ray showed patchy airspace opacity at the left base and a right hilar mass. The patient was recommended for CT scan for further evaluation. CT chest without contrast showed a masslike consolidation in the superior segment of the right lower lobe with cavitation. This mass was inseparable from the right hilum and posterior mediastinum. The mass resulted in severe narrowing of the bronchus intermedius and was also associated with additional scattered areas of mild ground-glass opacity within the right upper and left lower lobes. Patient underwent bronchoscopy with EBUS on 11/17/2020. A bonastent to the bronchus intermedius was placed. Biopsy of the right lower lobe mass and a 4 L lymph node showed evidence of squamous cell carcinoma. 4R and station 7 lymph nodes were negative for malignancy. She underwent a PET-CT on 12/13/2020 which showed an indeterminate cavitated hypermetabolic process in the medial aspect of the right lower lobe with evidence of stenting of the right bronchus intermedius consistent with the known primary lung cancer and borderline hypermetabolism in a precarinal lymph node. There was no evidence of distant metastatic disease. The patient was recommended for treatment with concurrent chemoradiation with carboplatin and paclitaxel. We discussed that if she shows a positive response to treatment that we would then want to proceed with maintenance immunotherapy with durvalumab for 1 year following the completion of chemoradiation. Prior to initiating treatment the patient requested to have a port placed. This was successfully completed and the patient started treatment on 12/31/2020. She completed a total of 6 cycles of carboplatin and paclitaxel with concurrent radiation therapy. The patient was supposed to have repeat CT imaging following the completion of chemoradiation but we ran into issues getting these scheduled. She went on to start immunotherapy maintenance with Durvalumab. She was finally able to get in for her CT scan after 2 cycles of durvalumab on 03/30/2021. This showed an interval decrease in the size of the right lower lobe cavitary mass but with continued atelectasis of the right middle lobe and some new findings in the right upper and lower lobes consistent with radiation pneumonitis. The patient was also noted to have interval development of multiple bilateral pulmonary nodules all measuring less than 6 mm in size. She was recommended to remain on treatment with durvalumab. In follow-up with Dr. Bullock she has shown continued changes in the lung on chest x-ray. She was referred to Dr. Ziegler for consideration of repeat bronchoscopy. She also underwent repeat CT imaging on 06/17/2021 prior to cycle 8. This showed continued interval decrease in the size of the right lower lobe cavitary mass, interval decrease in the size of the mediastinal nodes to draw now back to normal by size criteria, near resolution of the mild scattered ground-glass of the left lung and left pulmonary nodules, and evolving radiation pneumonitis with fibrosis in the right upper and lower lobes. It also showed stable atelectasis with complete collapse of the right middle lobe. The patient was recommended to remain on treatment with durvalumab. I also recommended she be re-evaluated by Pulmonary and be considered for a possible repeat bronchoscopy. Unfortunately there has been several delays in getting his range. However the patient did finally follow-up with Dr. Ziegler in August. He is considering repeat bronchoscopy with removal of the pulmonary stent but is wanted a repeat CT imaging of the chest prior to the procedure. The patient underwent an MRI brain without contrast on 09/18/2021 for her neurologist due to her history of seizures. It remained without any evidence of metastatic disease. Repeat CT chest on 09/29/2021 showed stable findings in the right lung with mild progression of a small partially loculated right pleural effusion. There was improvement in the patchy ground-glass changes throughout the right lung but interval development moderate patchy ground-glass of the left lung. The patient continued to show mild stable mediastinal adenopathy. In early October 2021 the patient had her pulmonary stent removed . Apparently she was told that she had quite a bit of scar tissue in the lungs though in was recommended for further procedures in the future. On 11/10/2021 she presented to the ER for a grand mal seizure and was transferred to [facility]. While there she underwent additional imaging. Chest x-ray showed a prominence at the right hilum. CT scan showed a masslike consolidation in the superior segment of the right lower lobe with cavitation that was inseparable from the right hilum. It also showed severe narrowing of the bronchus intermedius. Following 20 cycles of maintenance durvalumab the patient did undergo PET-CT on 01/09/2022 for further evaluation of the changes seen on her CT imaging. This did not show any abnormal hypermetabolic changes within the neck, chest, abdomen, or pelvis. It did show a stable non-hypermetabolic 1.1 cm superior mediastinum lymph node, a moderate non-hypermetabolic right pleural effusion, and stable post therapy fibrosis in the right perihilar region. Following the patient's 23rd cycle of maintenance Durvalumab she was hospitalized 2.5 weeks with congestive heart failure. She had thoracentesis with the fluid reportedly being negative for malignancy. After the delay due to her hospitalization she returned for continued treatment with immunotherapy. She completed a total of 26 cycles of durvalumab with her final cycle being on 04/06/2022. Follow-up CT imaging of the chest on 04/27/2022 showed near complete resolution of the ground-glass disease of the bilateral lungs without any significant change in the prominent soft tissue in the right hilum. She was also noted to have a decrease in the small right pleural effusion with smooth right posterior pleural thickening. The patient returns today for continued follow-up. - On December 14, 2022 patient presented for follow-up visit. She continues to smoke 5-6 cigarettes a day. She has chronic shortness of breath which has been stable. She has intermittent cough but no hemoptysis. She continues to have night sweats. Her weight has been fluctuating. She reports no black or dark stool. She denies any change in bowel habits. Interestingly, she has never had colonoscopy or mammogram and she declined it. She stated the less she knows, the better off . CT scan of the chest from November 11, 2022 showed stable chronic changes. No new findings. Patient has an appointment with Neurology in 1 month. She has an appointment with pain clinic sometime next week.- On April 18, 2023 patient comes in today for follow-up visit she is in a wheelchair. She had another seizure last week and she twisted left ankle and she can not walk. Patient reports severe pain in the left ankle. She had recent CT scan and she comes in today to discuss the results. She smokes few cigarettes a day. Patient did not go for her mammogram. By reviewing her lab, patient has chronic hyponatremia from being on Aldactone. Patient is scheduled to see cardiology and Cardiothoracic surgery for leaky cardiac valve. Of note, she has never had colonoscopy in the past. She has Port-A-Cath on the left side due to poor venous access. Circulating tumor DNA from March 31, 2023 was negative. Patient is on folic acid and oral iron.- CT scan of the chest from March 29, 2023 showed chronic changes. Patient presents April 23, 2024 for follow-up regarding her squamous cell carcinoma. The patient reports that she is doing fairly well but has been caring for her family. She denies chest or abdominal pain. She denies palpitations or shortness of breath. She denies fever, chills, or night sweats. She denies any persistent wheezing or hemoptysis. She continues to keep her appointments with UC, pulmonology, and cardiology. SHOLA MAY NP [address] [facility],[address], [place], [place], [address], [facility] [place] [facility] [place] 05/30/2024 13:33:09 OBGyn Episode No OBEpisode recorded.
[2024-10-01 08:47] VITALS: BP 123/43; PULSE 91; RESP 18; O2SAT 100; BMI 25.7
--- NOTE | 2024-10-01 09:05 | EXP.PAIN.SOA ---
[facility] Disclaimer: The information contained in this section may have been updated after the patient was seen, as this information can be updated by other users. Medical History Carpal tunnel syndrome HLD (hyperlipidemia) Vitamin D deficiency Bipolar disorder HTN (hypertension) Diabetes Mitral valve regurgitation Mitral valve disease Lung cancer CHF (congestive heart failure) Congestive cardiomyopathy Seizures Insomnia Anxiety Surgical History History of left knee replacement History of bronchoscopy H/O hernia repair H/O: hysterectomy History of bilateral fallopian tube excision History of ankle surgery Family History Other Alcoholism Anxiety Arthritis Bipolar disorder Bone cancer Cataracts, bilateral Depression GERD (gastroesophageal reflux disease) Gout Heart attack Hypertension Pulmonary emphysema Skin cancer Substance abuse Social History Smoking Status: Current every day smoker alcohol intake: never current occupational status: other Travel in the last 8 weeks?: None PM Subjective & Objective Subjective Subjective:: Patient is a pleasant 59-year-old female who presents today for follow-up. She rates her pain today as 7 out of 10. She denies any new trauma or injury. She does state that she still is having the left leg symptoms that do radiate to her low back. Patient at our last visit was given a 2-week supply of tizanidine 4 mg 3 times a day. Patient states that she did not notice any additional improvement with this medication but felt like it did make her loopy. Patient did previously have a lumbar epidural steroid injection L5-S1 on 08/21/2024 that did provide 60% relief however was more temporary. We are planning on proceeding forward with a second epidural in future. Patient does have a history of seizures and is seeing [facility] for this. Patient does also have a history of lung cancer however has been in remission for years. Patient does use CBD oil and feels like this does help a little bit. Patient has tried Robaxin, Flexeril in the past. Patient does have a history of CHF. Her Yazan has been reviewed and is appropriate. Review of Systems: General: No recent weight changes, no fever, no sleep disturbances Respiratory: No cough, no shortness of air, no recurring pulmonary infections Cardiovascular/peripheral vascular: No chest pain, no palpitations, no edema, no shortness of breath Gastrointestinal: No new onset incontinence, normal bowel movements reported Genitourinary: No new onset incontinence Musculoskeletal: Left leg pain, low back pain Psychiatric: [Normal mood/affect] Neurological: [Denies weakness in extremities], [denies balance issues] Pain at rest (0-10 scale): 7 Objective Objective:: Physical Exam: General: Alert and oriented x3, no acute distress, pleasant and cooperative Lungs: Respirations even and unlabored, symmetrical chest expansion Eyes: PERRL Musculoskeletal: Flexion and extension of lumbar [spine] somewhat guarded secondary to pain, [antalgic gait noted] Neurological: Speech clear, no gross sensory deficit Has patient had previous pain injection?: No Conservative treatment options previously tried: Home exercise plan Length of treatment: Longer than 12 weeks Meds Home Medications and Allergies Home Medications ?Medication ?Instructions ?Recorded ?Confirmed ?Type atorvastatin 40 mg tablet 40 mg PO DAILY Cholesterol 06/29/24 10/01/24 History bisoprolol fumarate 5 mg tablet 5 mg PO DAILY BLOOD PRESSURE 06/29/24 10/01/24 History folic acid 1 mg tablet 1 mg PO DAILY SUPPLIMENT 06/29/24 10/01/24 History metformin 500 mg tablet 500 mg PO BID Diabetes 06/29/24 10/01/24 History pregabalin 50 mg capsule 50 mg PO BID Pain 06/29/24 10/01/24 History quetiapine 200 mg tablet 200 mg PO DAILY . 06/29/24 10/01/24 History ropinirole 5 mg tablet 5 mg PO DAILY RESTLESS LEGS 06/29/24 10/01/24 History sacubitril 24 mg-valsartan 26 mg 1 tab PO BID Heart Failure 06/29/24 10/01/24 History tablet (Entresto) tiotropium bromide 18 mcg capsule 1 cap inhalation DAILY Breathing 06/29/24 10/01/24 History with inhalation device (Spiriva Problems with HandiHaler) zonisamide 100 mg capsule 200 mg PO DAILY SEIZURES 06/29/24 10/01/24 History tizanidine 4 mg tablet (Zanaflex) 4 mg PO TID #42 tabs 09/17/24 10/01/24 Rx New Prescriptions to Start Prescriptions: Allergies Allergy/AdvReac Type Severity Reaction Status Date / Time acetaminophen Allergy Rash Verified 08/21/24 10:10 hydrocodone Allergy Rash Verified 08/21/24 10:10 niacin Allergy Unknown Verified 08/21/24 10:10 allergy reaction risperidone Allergy Unknown Verified 08/21/24 10:10 allergy reaction Sulfa (Sulfonamide Allergy Unknown Verified 08/21/24 10:10 Antibiotics) allergy reaction bupropion AdvReac Seizure Verified 08/21/24 10:10 venlafaxine AdvReac Seizure Verified 08/21/24 10:10 Assessment and Plan *Assessment and plan (1) Lumbar radiculopathy: Status: Acute Category: Medical Code(s): M54.16 - Radiculopathy, lumbar region (2) Low back pain: Status: Acute Category: Medical Code(s): M54.50 - Low back pain, unspecified (3) Numbness of left foot: Status: Acute Category: Medical Code(s): R20.0 - Anesthesia of skin (4) Left ankle pain: Status: Acute Category: Medical Code(s): M25.572 - Pain in left ankle and joints of left foot Plan I did discuss with the patient regarding additional injection therapy. Patient did have a tibial nerve block previously however got much more relief with the epidural. We will plan on repeating her last epidural towards the end of October. Patient agrees with this plan of care. I did discuss with the patient that due to her worsening acute pain in her left ankle along with areas of skin breakdown we can send in a 2-week dose of journavx 50 mg twice daily. Patient will return to clinic in 2 weeks for reevaluation of symptoms and plan of care. Patient has been instructed to contact the clinic with any concerns before the next appointment. Dr. Rosas has reviewed this note and agrees with this plan of care. This note was dictated using voice recognition software and make contain errors or omissions. All injections are used with Lidocaine, Bupivacaine and dexamethasone. Occasionally urine drug screen is needed to verify patient's compliance with our office pain contract. This is ordered based off specific treatments related to chronic pain with the potential to abuse certain medications.
== END 2024-10-01 23:59 | disposition home or self-care (01) ==
PROVIDERS: PCP Family Medicine; Visit Provider Nurse Practitioner Family
DX: M54.16 Radiculopathy, lumbar region (principal); M54.50 Low back pain, unspecified; R20.0 Anesthesia of skin; M25.572 Pain in left ankle and joints of left foot; Z96.652 Presence of left artificial knee joint; F17.200 Nicotine dependence, unspecified, uncomplicated
CPT/HCPCS: 99212; G0463

== ENCOUNTER 2024-10-15 11:11 | Outpatient (POV) | payer MEDICARE, SELFPAY ==
--- OUTSIDE RECORDS SUMMARY | 2024-10-15 11:14 | XMS_ITS | Data Portability ---
Author Organization [place] - [facility] & [place] LEENA ADMIN Address [address] [place] [id number] Care Team Providers Care Acquisition Professional Name Role Phone KATH WANG Primary Care Provider MIGEL BULLOCK Terminal Carman DAVID ZIEGLER Terminal Carman TRACY HTOMPSON Radiation Oncologist [facility] Hematology/Onco logy Assessment No assessment recorded. Plan of Treatment Reminders Order Date Submit Date Provider Last Modified By Organization Details Last Modified Time Details Appointments FOLLOW UP 30 2024 10:30A M SHOLA MAY NP Not available Not available Not available Lab CMP, serum or plasma 2023 024 JOSE MANUEL [facility]( [facility]), [facility] [place] [address] [address] [place], [address], 04/23/2024 12:16:30 CBC w/ auto diff 2023 024 JOSE MANUEL [facility]( [facility]), [place] [address] [place], [address], 04/23/2024 11:55:22 CMP, serum or plasma 2023 024 jarvis [facility]( [facility]), [facility] [place], [address], 10/25/2023 15:52:37 CBC w/ auto diff 2023 024 jarvis [facility]( [facility]), [address], [place], [address], 10/25/2023 15:52:37 iron + TIBC + ferritin, serum [address] (Registration ), [place], [address], 04/25/2023 09:53:54 iron saturatio n, serum or plasma [address] (Registration ), [address], [place], [address], 04/25/2023 09:53:54 noninvasi ve colorecta l cancer DNA + occult blood screening , QL, stool [address] (Registration ), [place], [address], 04/25/2023 09:53:54 CMP, serum or plasma 2022 023 [facility]( Lab), [place] [address] [place], [address], 04/18/2023 11:15:30 CBC w/ auto diff 2022 023 [facility]( Lab), [place] [address] [place], [address], 04/18/2023 10:39:52 Referral None recorded. Procedures None recorded. Surgeries None recorded. Imaging CT, chest, w/ contrast [facility] [place], [address], 07/17/2024 12:22:18 CT, chest, w/ contrast 2023 024 JOSE MANUEL [facility] (Centralized Scheduling), [place] [address] [place], [address], 11/21/2023 09:51:09 XR, ankle, 3 or more view - S/P fall, left ankle pain. X ray of left ankle. 2022 023 [facility] (Centralized Scheduling), [place], [address], 06/22/2023 09:50:56 CT, chest, w/ contrast - Please schedule prior to clinic follow-up on 3. 2022 024 JESSIE [facility] (Centralized Scheduling), [place] [address] [place], [address], 10/17/2023 03:25:11 Medication Orders Breo Ellipta 200 mcg-25 mcg/dose powder for inhalatio n 2023 024 [email or web address] 5 [facility], [address] [place], [address], 10/25/2023 14:40:18 Patient TargetsNo targets recorded. Patient Instructions Encounter Date Encounter Id Patient Instructions Last Modified By Organization Details Last Modified Time 08/01/2023 [id number] Continue Advair 250 or Breo 200, Incruse, albuterol or albuterol nebs q4hr prn. Tobacco cessation. Follow-up with Oncology office/[facility] Hematology-Oncolo gy for all CT scans chest, abdomen/ pelvis etc, as she has been doing. Continue Advair 250 one puff bid with Incruse one puff daily or Trelegy 200 one puff daily. 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 Her Cardiology she states is Dr. Gaffney. She has an appointment with Oncology in September [address] up [address] of the chest. Return to clinic October 2023. [email or web address] Not available 08/01/2023 10:35:26 Reason for Referral None Reported. Results Created Date Observation Date Name Description Value Unit Range Abnormal Flag Note LastModifiedBy Organization Detail LastModifiedTime 03/29/2003/29/2023 CREAT ININE W/GFR note SEE NOTE Order ing Provi kathia: Aniyah wyman MD Not Available [address] , [place], [address], 03/29/2023 09:10:25 03/29/2003/29/2023 CREAT ININE W/GFR creatinine 0.72 mg/dL 0.55-1 .02 normal Not Available [address] , [place], [address], 03/29/2023 09:10:25 03/29/2003/29/2023 CREAT ININE W/GFR GFR [...] care of your patie nt. Not Available [address] , [place], [address], 03/29/2023 09:10:25 03/29/20 23 03/29/2023 CREAT ININE W/GFR performing lab SEE NOTE - [facility] R [facility] MEDIC AL [address] [facility] [address] Not Available [address] , [place], [address], 03/29/2023 09:10:25 04/18/20 23 04/18/2023 CBC W/AUT O DIFFE RENTI AL note SEE NOTE Order ing Provi kathia: Aniyah wyman MD Not Available [address] , [place], [address], 04/18/2023 10:39:52 04/18/20 23 04/18/2023 CBC W/AUT O DIFFE RENTI AL white blood cell 6.1 10e3/ uL 4.5-13 .0 normal Not Available [address] , [place], [address], 04/18/2023 10:39:52 04/18/20 23 04/18/2023 CBC W/AUT O DIFFE RENTI AL red blood cell 3.34 10e6/ uL 3.80-5 .10 low Not Available [address] , [place], [address], 04/18/2023 10:39:52 04/18/20 23 04/18/2023 CBC W/AUT O DIFFE RENTI AL hemoglobin 11.2 g/dL 11.5-1 5.3 low Not Available [address], [place], [address], 04/18/2023 10:39:52 04/18/20 23 04/18/2023 CBC W/AUT O DIFFE RENTI AL hematocrit 30.9 % 34.0-4 6.0 low Not Available [address], [place], [address], 04/18/2023 10:39:52 04/18/20 23 04/18/2023 CBC W/AUT O DIFFE RENTI AL mean cell volume 93 fL 78.0-9 8.0 normal Not Available [address] , [place], [address], 04/18/2023 10:39:52 04/18/20 23 04/18/2023 CBC W/AUT O DIFFE RENTI AL mean cell HGB 33.5 pg 25.0-3 5.0 normal Not Available [address], [place], [address], 04/18/2023 10:39:52 04/18/20 23 04/18/2023 CBC W/AUT O DIFFE RENTI AL mean cell HGB concentratio n 36.2 g/dL 31.0-3 6.0 high Not Available [address] Garcia, [place], [address], 04/18/2023 10:39:52 04/18/20 23 04/18/2023 CBC W/AUT O DIFFE RENTI AL red cell distribution width 13.3 % 11.0-1 5.0 normal Not Available [address] Garcia, [place], [address], 04/18/2023 10:39:52 11/20/04/18/2023 CBC W/AUT O DIFFE RENTI AL platelet count 255 10e3/ uL 150-40 0 normal Not Available [address] Garcia, [place], [address], 04/18/2023 10:39:52 04/18/20 23 04/18/2023 CBC W/AUT O DIFFE RENTI AL immature granulocyte % 0 0-1 normal Not Available [address], [place], [address], 04/18/2023 10:39:52 04/18/20 23 04/18/2023 CBC W/AUT O DIFFE RENTI AL neutrophil % 71 % 35-75 normal Not Available [address], [place], [address], 04/18/2023 10:39:52 04/18/20 23 04/18/2023 CBC W/AUT O DIFFE RENTI AL lymphocyte % 18 % 10-50 normal Not Available [address], [place], [address], 04/18/2023 10:39:52 04/18/20 23 04/18/2023 CBC W/AUT O DIFFE RENTI AL monocyte % 9 % 0-15 normal Not Available [address] [address], [place], [address], 04/18/2023 10:39:52 04/18/20 23 04/18/2023 CBC W/AUT O DIFFE RENTI AL eosinophil % 1 % 0-5 normal Not Available [address], [place], [address], 04/18/2023 10:39:52 04/18/20 23 04/18/2023 CBC W/AUT O DIFFE RENTI AL basophil % 1 % 0-5 normal Not Available [address], [place], [address], 04/18/2023 10:39:52 04/18/20 23 04/18/2023 CBC W/AUT O DIFFE RENTI AL immature granulocyte # 0.02 x1000 /uL 0-0.05 normal Not Available [place] [address], [place], [address], 04/18/2023 10:39:52 04/18/20 23 04/18/2023 CBC W/AUT O DIFFE RENTI AL neutrophil # 4.34 x1000 /uL 1.50-8 .00 normal Not Available [place] [address], [place], [address], 04/18/2023 10:39:52 04/18/20 23 04/18/2023 CBC W/AUT O DIFFE RENTI AL lymphocyte # 1.11 x1000 /uL 1.20-5 .20 low Not Available [place] [address], [place], [address], 04/18/2023 10:39:52 04/18/20 23 04/18/2023 CBC W/AUT O DIFFE RENTI AL monocyte # 0.53 x1000 /uL 0.40-0 .90 normal Not Available [place] [address], [place], [address], 04/18/2023 10:39:52 04/18/20 23 04/18/2023 CBC W/AUT O DIFFE RENTI AL eosinophil # 0.07 x1000 /uL 0.00-0 .50 normal Not Available [place] [address], [place], [address], 04/18/2023 10:39:52 04/18/20 23 04/18/2023 CBC W/AUT O DIFFE RENTI AL basophil # 0.03 x1000 /uL 0.00-0 .30 normal Not Available [place] [address], [place], [address], 04/18/2023 10:39:52 04/18/20 23 04/18/2023 CBC W/AUT O DORIS ESTEVES NRBC automated 0.0 /100_ WBC Not Available [address] , [place], [address], 04/18/2023 10:39:52 04/18/20 23 04/18/2023 CBC W/AUT O DORIS ESTEVES performing lab SEE NOTE ML - [facility] [address] [facility] [address] Not Available [address] , [place], [address], 04/18/2023 10:39:52 04/18/20 23 04/18/2023 COMP METAB OLIC PANEL note SEE NOTE Order ing Provi kathia: Aniyah wyman MD Not Available [address] , [place], [address], 04/18/2023 11:15:30 04/18/20 23 04/18/2023 COMP METAB OLIC PANEL sodium 121 mmol/ L 136-14 5 low Not Available [address] , [place], [address], 04/18/2023 11:15:30 04/18/20 23 04/18/2023 COMP METAB OLIC PANEL potassium 4.5 mmol/ L 3.5-5. 1 normal Not Available [address] , [place], [address], 04/18/2023 11:15:30 04/18/20 23 04/18/2023 COMP METAB OLIC PANEL chloride 90 mmol/ L 98-107 low Not Available [address] , [place], [address], 04/18/2023 11:15:30 04/18/20 04/18/2023 COMP METAB OLIC PANEL carbon dioxide 24 mmol/ L 24-33 normal Not Available [address] , [place], [address], 04/18/2023 11:15:30 04/18/20 23 04/18/2023 COMP METAB OLIC PANEL anion gap 11.5 mmol/ L 10-20 normal Not Available [address] , [place], [address], 04/18/2023 11:15:30 04/18/20 23 04/18/2023 COMP METAB OLIC PANEL glucose 100 mg/dL 70-99 high Not Available [address] , [place], [address], 04/18/2023 11:15:30 04/18/20 23 04/18/2023 COMP METAB OLIC PANEL blood urea nitrogen 11 mg/dL 7-18 normal Not Available [address] , [place], [address], 04/18/2023 11:15:30 04/18/20 23 04/18/2023 COMP METAB OLIC PANEL creatinine 0.62 mg/dL 0.55-1 .02 normal Not Available [address] , [place], [address], 04/18/2023 11:15:30 04/18/20 23 04/18/2023 COMP METAB [...] care of your patie nt. Not Available [address] , [place], [address], 04/18/2023 11:15:30 04/18/20 23 04/18/2023 COMP METAB OLIC PANEL BUN/creatini ne ratio 17 12-20 normal Not Available [address] , [place], [address], 04/18/2023 11:15:30 04/18/20 23 04/18/2023 COMP METAB OLIC PANEL total protein 6.9 g/dL 6.4-8. 2 normal Not Available [address] , [place], [address], 04/18/2023 11:15:30 04/18/20 23 04/18/2023 COMP METAB OLIC PANEL albumin 3.5 g/dL 3.4-5. 0 normal Not Available [address] , [place], [address], 04/18/2023 11:15:30 04/18/20 23 04/18/2023 COMP METAB OLIC PANEL globulin 3.4 g/dL 1.5-4. 0 normal Not Available [address] , [place], [address], 04/18/2023 11:15:30 04/18/20 23 04/18/2023 COMP METAB OLIC PANEL albumin/glob ulin ratio 1.0 0.5-2. 0 normal Not Available [address] , [place], [address], 04/18/2023 11:15:30 04/18/20 23 04/18/2023 COMP METAB OLIC PANEL calcium 8.3 mg/dL 8.5-10 .1 low Not Available [address] , [place], [address], 04/18/2023 11:15:30 04/18/20 23 04/18/2023 COMP METAB OLIC PANEL osmolality serum calculated 242 mOsm/ kg 272-28 8 low Not Available [address] , [place], [address], 04/18/2023 11:15:30 04/18/20 23 04/18/2023 COMP METAB OLIC PANEL bilirubin total 0.2 mg/dL 0.2-1. 0 normal Use of this assay is not recom ashley d for patie nts under going treat ment with Eltro mbopa g due to the poten tial for false ly eleva zeyad resul ts. Not Available [address] , [place], [address], 04/18/2023 11:15:30 04/18/20 23 04/18/2023 COMP METAB OLIC PANEL SGOT/AST 18 U/L 15-37 normal Not Available [address] , [place], [address], 04/18/2023 11:15:30 04/18/20 23 04/18/2023 COMP METAB OLIC PANEL SGPT/ALT 26 U/L 14-59 normal Not Available [address] , [place], [address], 04/18/2023 11:15:30 04/18/20 23 04/18/2023 COMP METAB OLIC PANEL alkaline phosphatase total 108 U/L 46-116 normal Not Available [address] , [place], [address], 04/18/2023 11:15:30 04/18/20 23 04/18/2023 COMP METAB OLIC PANEL performing lab SEE NOTE ML - [facility] [address] [facility] [address] Not Available [address] , [place], [address], 04/18/2023 11:15:30 04/18/20 23 04/18/2023 LORRIE TIN note See Note Order ing Provi kathia: Aniyah wyman MD Not Available [address] , [place], [address], 04/18/2023 11:15:32 04/18/20 23 04/18/2023 LORRIE TIN ferritin 75 NG/mL 8-252 normal Not Available [address] , [place], [address], 04/18/2023 11:15:32 04/18/20 23 04/18/2023 LORRIE TIN performing lab see note ML - [facility] [address] [facility] [address] Not Available [address] , [place], [address], 04/18/2023 11:15:32 04/18/20 23 04/18/2023 FE W/TOT AL IRON KATHLEEN NG CAP note See Note Order ing Provi kathia: Aniyah wyman MD Not Available [address] , [place], [address], 04/18/2023 11:27:19 04/18/20 23 04/18/2023 FE W/TOT AL IRON KATHLEEN NG CAP iron 68 ug/dL 50-170 normal Not Available [address] , [place], [address], 04/18/2023 11:27:19 04/18/20 23 04/18/2023 FE W/TOT AL IRON KATHLEEN NG CAP total iron binding capacity 307 ug/dL 260-44 5 normal Not Available [address] , [place], [address], 04/18/2023 11:27:19 04/18/20 23 04/18/2023 FE W/TOT AL IRON KATHLEEN NG CAP iron saturation 22 % 20-50 normal Not Available [address] , [place], [address], 04/18/2023 11:27:19 04/18/20 23 04/18/2023 FE W/TOT AL IRON KATHLEEN NG CAP performing lab see note - [facility] [address] [facility] [address] [facility] [address] Not Available [address] , [place], [address], 04/18/2023 11:27:19 10/25/19 24 10/25/2023 CBC W/AUT O DIFFE RENTI AL note SEE NOTE Order ing Provi kathia: Frank ling APRN Not Available [address] , [place], [address], 10/25/2023 15:43:19 10/25/19 24 10/25/2023 CBC W/AUT O DIFFE RENTI AL white blood cell 5.7 10e3/ uL 4.5-13 .0 normal Not Available [address], [place], [address], 10/25/2023 15:43:19 10/25/19 24 10/25/2023 CBC W/AUT O DIFFE RENTI AL red blood cell 2.98 10e6/ uL 3.80-5 .10 low Not Available [address], [place], [address], 10/25/2023 15:43:19 10/25/19 24 10/25/2023 CBC W/AUT O DIFFE RENTI AL hemoglobin 9.9 g/dL 11.5-1 5.3 low Not Available [address], [place], [address], 10/25/2023 15:43:19 10/25/19 24 10/25/2023 CBC W/AUT O DIFFE RENTI AL hematocrit 30.2 % 34.0-4 6.0 low Not Available [address], [place], [address], 10/25/2023 15:43:19 10/25/19 24 10/25/2023 CBC W/AUT O DIFFE RENTI AL mean cell volume 101 fL 78.0-9 8.0 high Not Available [address], [place], [address], 10/25/2023 15:43:19 10/25/19 24 10/25/2023 CBC W/AUT O DIFFE RENTI AL mean cell HGB 33.2 pg 25.0-3 5.0 normal Not Available [address], [place], [address], 10/25/2023 15:43:19 10/25/19 24 10/25/2023 CBC W/AUT O DIFFE RENTI AL mean cell HGB concentratio n 32.8 g/dL 31.0-3 6.0 normal Not Available [address] , [place], [address], 10/25/2023 15:43:19 10/25/19 24 10/25/2023 CBC W/AUT O DIFFE RENTI AL red cell distribution width 12.7 % 11.0-1 5.0 normal Not Available [address] , [place], [address], 10/25/2023 15:43:19 10/25/19 24 10/25/2023 CBC W/AUT O DIFFE RENTI AL platelet count 200 10e3/ uL 150-40 0 normal Not Available [address], [place], [address], 10/25/2023 15:43:19 10/25/19 24 10/25/2023 CBC W/AUT O DIFFE RENTI AL immature granulocyte % 0 0-1 normal Not Available [address] [address], [place], [address], 10/25/2023 15:43:19 10/25/19 24 10/25/2023 CBC W/AUT O DIFFE RENTI AL neutrophil % 66 % 35-75 normal Not Available [address] , [place], [address], 10/25/2023 15:43:19 10/25/19 24 10/25/2023 CBC W/AUT O DIFFE RENTI AL lymphocyte % 24 % 10-50 normal Not Available [address] , [place], [address], 10/25/2023 15:43:19 10/25/19 24 10/25/2023 CBC W/AUT O DIFFE RENTI AL monocyte % 8 % 0-15 normal Not Available [address] , [place], [address], 10/25/2023 15:43:19 10/25/19 24 10/25/2023 CBC W/AUT O DIFFE RENTI AL eosinophil % 2 % 0-5 normal Not Available [address], [place], [address], 10/25/2023 15:43:19 10/25/19 24 10/25/2023 CBC W/AUT O DIFFE RENTI AL basophil % 1 % 0-5 normal Not Available [address] , [place], [address], 10/25/2023 15:43:19 10/25/19 24 10/25/2023 CBC W/AUT O DIFFE RENTI AL immature granulocyte # 0.02 x1000 /uL 0-0.05 normal Not Available [address], [place], [address], 10/25/2023 15:43:19 10/25/19 24 10/25/2023 CBC W/AUT O DIFFE RENTI AL neutrophil # 3.75 x1000 /uL 1.50-8 .00 normal Not Available [address], [place], [address], 10/25/2023 15:43:19 10/25/19 24 10/25/2023 CBC W/AUT O DIFFE RENTI AL lymphocyte # 1.34 x1000 /uL 1.20-5 .20 normal Not Available [address], [place], [address], 10/25/2023 15:43:19 10/25/19 24 10/25/2023 CBC W/AUT O DIFFE RENTI AL monocyte # 0.47 x1000 /uL 0.40-0 .90 normal Not Available [address] , [place], [address], 10/25/2023 15:43:19 10/25/19 24 10/25/2023 CBC W/AUT O DIFFE RENTI AL eosinophil # 0.09 x1000 /uL 0.00-0 .50 normal Not Available [address] , [place], [address], 10/25/2023 15:43:19 10/25/19 24 10/25/2023 CBC W/AUT O DIFFE RENTI AL basophil # 0.03 x1000 /uL 0.00-0 .30 normal Not Available [address] , [place], [address], 10/25/2023 15:43:19 10/25/19 24 10/25/2023 CBC W/AUT O DIFFE RENTI AL NRBC automated 0.0 /100_ WBC Not Available [address] , [place], [address], 10/25/2023 15:43:19 10/25/19 24 10/25/2023 CBC W/AUT O DIFFE RENTI AL performing lab SEE NOTE - [address] [facility] [address] Not Available [address] , [place], [address], 10/25/2023 15:43:19 10/25/19 24 10/25/2023 COMP METAB OLIC PANEL note SEE NOTE Order ing Provi kathia: Frank ling APRN Not Available [address] , [place], [address], 10/25/2023 15:51:39 10/25/19 24 10/25/2023 COMP METAB OLIC PANEL sodium 142 mmol/ L 136-14 5 normal Not Available [address], [place], [address], 10/25/2023 15:51:39 10/25/19 24 10/25/2023 COMP METAB OLIC PANEL potassium 3.9 mmol/ L 3.5-5. 1 normal Not Available [address], [place], [address], 10/25/2023 15:51:39 10/25/19 24 10/25/2023 COMP METAB OLIC PANEL chloride 109 mmol/ L 98-107 high Not Available [address], [place], [address], 10/25/2023 15:51:39 10/25/19 24 10/25/2023 COMP METAB OLIC PANEL carbon dioxide 25 mmol/ L 24-33 normal Not Available [address], [place], [address], 10/25/2023 15:51:39 10/25/19 24 10/25/2023 COMP METAB OLIC PANEL anion gap 11.9 mmol/ L 10-20 normal Not Available [address], [place], [address], 10/25/2023 15:51:39 10/25/19 24 10/25/2023 COMP METAB OLIC PANEL glucose 148 mg/dL 70-99 high Not Available [address], [place], [address], 10/25/2023 15:51:39 10/25/19 24 10/25/2023 COMP METAB OLIC PANEL blood urea nitrogen 15 mg/dL 7-18 normal Not Available [address], [place], [address], 10/25/2023 15:51:39 10/25/19 24 10/25/2023 COMP METAB OLIC PANEL creatinine 0.86 mg/dL 0.55-1 .02 normal Not Available [address] , [place], [address], 10/25/2023 15:51:39 10/25/19 24 10/25/2023 COMP METAB [...] care of your patie nt. Not Available [address], [place], [address], 10/25/2023 15:51:39 10/25/19 24 10/25/2023 COMP METAB OLIC PANEL BUN/creatini ne ratio 17 12-20 normal Not Available [address] , [place], [address], 10/25/2023 15:51:39 10/25/19 24 10/25/2023 COMP METAB OLIC PANEL total protein 6.3 g/dL 6.4-8. 2 low Not Available [address] , [place], [address], 10/25/2023 15:51:39 10/25/19 24 10/25/2023 COMP METAB OLIC PANEL albumin 3.2 g/dL 3.4-5. 0 low Not Available [address] , [place], [address], 10/25/2023 15:51:39 10/25/19 24 10/25/2023 COMP METAB OLIC PANEL globulin 3.1 g/dL 1.5-4. 0 normal Not Available [address] , [place], [address], 10/25/2023 15:51:39 10/25/19 24 10/25/2023 COMP METAB OLIC PANEL albumin/glob ulin ratio 1.0 0.5-2. 0 normal Not Available [address], [place], [address], 10/25/2023 15:51:39 10/25/19 24 10/25/2023 COMP METAB OLIC PANEL calcium 8.2 mg/dL 8.5-10 .1 low Not Available [address] , [place], [address], 10/25/2023 15:51:39 10/25/19 24 10/25/2023 COMP METAB OLIC PANEL osmolality serum calculated 286 mOsm/ kg 272-28 8 normal Not Available [address] , [place], [address], 10/25/2023 15:51:39 10/25/19 24 10/25/2023 COMP METAB OLIC PANEL bilirubin total 0.2 mg/dL 0.2-1. 0 normal Use of this assay is not recom ashley d for patie nts under going treat ment with Eltro mbopa g due to the poten tial for false ly eleva zeyad resul ts. Not Available [address] , [place], [address], 10/25/2023 15:51:39 10/25/19 24 10/25/2023 COMP METAB OLIC PANEL SGOT/AST 9 U/L 15-37 low Not Available [address] , [place], [address], 10/25/2023 15:51:39 10/25/19 24 10/25/2023 COMP METAB OLIC PANEL SGPT/ALT 26 U/L 14-59 normal Not Available [address] , [place], [address], 10/25/2023 15:51:39 10/25/19 24 10/25/2023 COMP METAB OLIC PANEL alkaline phosphatase total 102 U/L 46-116 normal Not Available [address] , [place], [address], 10/25/2023 15:51:39 10/25/19 24 10/25/2023 COMP METAB OLIC PANEL performing lab SEE NOTE - [facility] R [address] [facility] [address] [facility] [id number] Not Available [address] [place], [address], 10/25/2023 15:51:39 03/15/20 24 03/15/2024 GLYCO HEMOG LOBIN (HGB A1C) note See Note Order ing Provi kathia: Frank ling LEAD BI DEVELOPER Not Available [address] Danyell Garcia, [place], [address], 03/15/2024 12:26:52 03/15/20 24 03/15/2024 GLYCO HEMOG LOBIN (HGB A1C) glycohemoglo bin (HGB A1C) 5.6 % 4.5-6. 2 normal Predi abete s: 5.7 - 6.4 Diabe kristi: >6.4 Glyce nalini contr ol for adult s with diabe kristi: <7.0 Not Available [address] , [place], [address], 03/15/2024 12:26:52 03/15/20 24 03/15/2024 GLYCO HEMOG LOBIN (HGB A1C) performing lab see note - [address] [address] Not Available [address] [place]anyell Garcia, [place], [address], 03/15/2024 12:26:52 04/23/20 24 04/23/2024 CBC W/AUT O DIFFE RENTI AL note SEE NOTE Order ing Provi kathia: Frank ling LEAD BI DEVELOPER Not Available [address] [place] Garcia, [place], [address], 04/23/2024 11:55:22 04/23/20 24 04/23/2024 CBC W/AUT O DIFFE RENTI AL white blood cell 6.4 10e3/ uL 4.5-13 .0 normal Not Available [address] [place]anyell Garcia, [place], [address], 04/23/2024 11:55:22 04/23/20 24 04/23/2024 CBC W/AUT O DIFFE RENTI AL red blood cell 3.49 10e6/ uL 3.80-5 .10 low Not Available [address] [place]any[place] Garcia, [place], [address], 04/23/2024 11:55:22 04/23/20 24 04/23/2024 CBC W/AUT O DIFFE RENTI AL hemoglobin 11.5 g/dL 11.5-1 5.3 normal Not Available [address] [place] Garcia, [place], [address], 04/23/2024 11:55:22 04/23/20 24 04/23/2024 CBC W/AUT O DIFFE RENTI AL hematocrit 33.7 % 34.0-4 6.0 low Not Available [address] [place] Garcia, [place], [address], 04/23/2024 11:55:22 04/23/20 24 04/23/2024 CBC W/AUT O DIFFE RENTI AL mean cell volume 97 fL 78.0-9 8.0 normal Not Available [address] [place] Garcia, [place], [address], 04/23/2024 11:55:22 04/23/20 24 04/23/2024 CBC W/AUT O DIFFE RENTI AL mean cell HGB 33.0 pg 25.0-3 5.0 normal Not Available [address] Danyell Garcia, [place], [address], 04/23/2024 11:55:22 04/23/20 24 04/23/2024 CBC W/AUT O DIFFE RENTI AL mean cell HGB concentratio n 34.1 g/dL 31.0-3 6.0 normal Not Available [address] Danyell Garcia, [place], [address], 04/23/2024 11:55:22 04/23/20 24 04/23/2024 CBC W/AUT O DIFFE RENTI AL red cell distribution width 13.9 % 11.0-1 5.0 normal Not Available [address] Danyell Garcia, [place], [address], 04/23/2024 11:55:22 04/23/20 24 04/23/2024 CBC W/AUT O DIFFE RENTI AL platelet count 205 10e3/ uL 150-40 0 normal Not Available [address] , [place], [address], 04/23/2024 11:55:22 04/23/20 24 04/23/2024 CBC W/AUT O DIFFE RENTI AL immature granulocyte % 0 0-1 normal Not Available [address] , [place], [address], 04/23/2024 11:55:22 04/23/20 24 04/23/2024 CBC W/AUT O DIFFE RENTI AL neutrophil % 63 % 35-75 normal Not Available [address] Danyell Garcia, [place], [address], 04/23/2024 11:55:22 04/23/20 24 04/23/2024 CBC W/AUT O DIFFE RENTI AL lymphocyte % 29 % 10-50 normal Not Available [address] Danyell Garcia, [place], [address], 04/23/2024 11:55:22 04/23/20 24 04/23/2024 CBC W/AUT O DIFFE RENTI AL monocyte % 6 % 0-15 normal Not Available [address] Danyell Garcia, [place], [address], 04/23/2024 11:55:22 04/23/20 24 04/23/2024 CBC W/AUT O DIFFE RENTI AL eosinophil % 2 % 0-5 normal Not Available [address] Danyell Garcia, [place], [address], 04/23/2024 11:55:22 04/23/20 24 04/23/2024 CBC W/AUT O DIFFE RENTI AL basophil % 1 % 0-5 normal Not Available [address] Danyell Garcia, [place], [address], 04/23/2024 11:55:22 04/23/20 24 04/23/2024 CBC W/AUT O DIFFE RENTI AL immature granulocyte # 0.01 x1000 /uL 0-0.05 normal Not Available [address] , [place], [address], 04/23/2024 11:55:22 04/23/20 24 04/23/2024 CBC W/AUT O DIFFE RENTI AL neutrophil # 4.01 x1000 /uL 1.50-8 .00 normal Not Available [address] Danyell Garcia, [place], [address], 04/23/2024 11:55:22 04/23/20 24 04/23/2024 CBC W/AUT O DIFFE RENTI AL lymphocyte # 1.81 x1000 /uL 1.20-5 .20 normal Not Available [address] Danyell Garcia, [place], [address], 04/23/2024 11:55:22 04/23/20 24 04/23/2024 CBC W/AUT O DIFFE RENTI AL monocyte # 0.37 x1000 /uL 0.40-0 .90 low Not Available [address] Danyell Garcia, [place], [address], 04/23/2024 11:55:22 04/23/20 24 04/23/2024 CBC W/AUT O DIFFE RENTI AL eosinophil # 0.13 x1000 /uL 0.00-0 .50 normal Not Available [address] Danyell Garcia, [place], [address], 04/23/2024 11:55:22 04/23/20 24 04/23/2024 CBC W/AUT O DORIS ESTEVES basophil # 0.03 x1000 /uL 0.00-0 .30 normal Not Available [address] , [place], [address], 04/23/2024 11:55:22 04/23/20 24 04/23/2024 CBC W/AUT O DORIS ESTEVES NRBC automated 0.0 /100_ WBC Not Available [address] , [place], [address], 04/23/2024 11:55:22 04/23/20 24 04/23/2024 CBC W/AUT O DORIS ESTEVES performing lab SEE NOTE ML - [facility] [address] [facility] [address] Not Available [address] , [place], [address], 04/23/2024 11:55:22 04/23/20 24 04/23/2024 COMP METAB OLIC PANEL note SEE NOTE Order ing Provi kathia: Frank ling APRN Not Available [address] , [place], [address], 04/23/2024 12:16:30 04/23/20 24 04/23/2024 COMP METAB OLIC PANEL sodium 140 mmol/ L 136-14 5 normal Not Available [address] , [place], [address], 04/23/2024 12:16:30 04/23/20 24 04/23/2024 COMP METAB OLIC PANEL potassium 4.0 mmol/ L 3.5-5. 1 normal Not Available [address] , [place], [address], 04/23/2024 12:16:30 04/23/20 24 04/23/2024 COMP METAB OLIC PANEL chloride 106 mmol/ L 98-107 normal Not Available [address] , [place], [address], 04/23/2024 12:16:30 04/23/20 24 04/23/2024 COMP METAB OLIC PANEL carbon dioxide 25 mmol/ L 24-33 normal Not Available [address] , [place], [address], 04/23/2024 12:16:30 04/23/20 24 04/23/2024 COMP METAB OLIC PANEL anion gap 13.0 mmol/ L 10-20 normal Not Available [address] , [place], [address], 04/23/2024 12:16:30 04/23/20 24 04/23/2024 COMP METAB OLIC PANEL glucose 94 mg/dL 70-99 normal Not Available [address] , [place], [address], 04/23/2024 12:16:30 04/23/20 24 04/23/2024 COMP METAB OLIC PANEL blood urea nitrogen 14 mg/dL 7-18 normal Not Available [address] , [place], [address], 04/23/2024 12:16:30 04/23/20 24 04/23/2024 COMP METAB OLIC PANEL creatinine 0.83 mg/dL 0.55-1 .02 normal Not Available [address] , [place], [address], 04/23/2024 12:16:30 04/23/20 24 04/23/2024 COMP METAB [...] care of your patie nt. Not Available [address] , [place], [address], 04/23/2024 12:16:30 04/23/20 24 04/23/2024 COMP METAB OLIC PANEL BUN/creatini ne ratio 16 12-20 normal Not Available [address] , [place], [address], 04/23/2024 12:16:30 04/23/20 24 04/23/2024 COMP METAB OLIC PANEL total protein 6.7 g/dL 6.4-8. 2 normal Not Available [address] , [place], [address], 04/23/2024 12:16:30 04/23/20 24 04/23/2024 COMP METAB OLIC PANEL albumin 3.5 g/dL 3.4-5. 0 normal Not Available [address] , [place], [address], 04/23/2024 12:16:30 04/23/20 24 04/23/2024 COMP METAB OLIC PANEL globulin 3.2 g/dL 1.5-4. 0 normal Not Available [address] , [place], [address], 04/23/2024 12:16:30 04/23/20 24 04/23/2024 COMP METAB OLIC PANEL albumin/glob ulin ratio 1.1 0.5-2. 0 normal Not Available [address] , [place], [address], 04/23/2024 12:16:30 04/23/20 24 04/23/2024 COMP METAB OLIC PANEL calcium 8.9 mg/dL 8.5-10 .1 normal Not Available [address] , [place], [address], 04/23/2024 12:16:30 04/23/20 24 04/23/2024 COMP METAB OLIC PANEL osmolality serum calculated 279 mOsm/ kg 272-28 8 normal Not Available [address] [place], [address], 04/23/2024 12:16:30 04/23/20 24 04/23/2024 COMP METAB OLIC PANEL bilirubin total 0.2 mg/dL 0.2-1. 0 normal Use of this assay is not recom ashley d for patie nts under going treat ment with Eltro mbopa g due to the poten tial for false ly eleva zeyad resul ts. Not Available [address] [place], [address], 04/23/2024 12:16:30 04/23/20 24 04/23/2024 COMP METAB OLIC PANEL SGOT/AST 19 U/L 15-37 normal Not Available [address] [place], [address], 04/23/2024 12:16:30 04/23/20 24 04/23/2024 COMP METAB OLIC PANEL SGPT/ALT 28 U/L 14-59 normal Not Available [address] [place], [address], 04/23/2024 12:16:30 04/23/20 24 04/23/2024 COMP METAB OLIC PANEL alkaline phosphatase total 121 U/L 46-116 high Not Available [address] , [place], [address], 04/23/2024 12:16:30 04/23/20 24 04/23/2024 COMP METAB OLIC PANEL performing lab SEE NOTE - [address] [address] Not Available [address] [place], [address], 04/23/2024 12:16:30 07/17/1907/17/2024 COMP METAB OLIC PANEL note SEE NOTE Order ing Provi kathia: Frank ling APRN Not Available [address] [place], [address], 07/17/2024 08:56:08 07/17/1907/17/2024 COMP METAB OLIC PANEL sodium 141 mmol/ L 136-14 5 normal Not Available [address] [place], [address], 07/17/2024 08:56:08 07/17/1924 0707/17/2024 COMP METAB OLIC PANEL potassium 4.0 mmol/ L 3.5-5. 1 normal Not Available [place] [address], [place], [address], 07/17/2024 08:56:08 07/17/19 25 07/17/2024 COMP METAB OLIC PANEL chloride 105 mmol/ L 98-107 normal Not Available [address] Danyell Garcia, [place], [address], 07/17/2024 08:56:08 07/17/19 25 07/17/2024 COMP METAB OLIC PANEL carbon dioxide 24 mmol/ L 24-33 normal Not Available [address]any[place] Garcia, [place], [address], 07/17/2024 08:56:08 07/17/19 25 07/17/2024 COMP METAB OLIC PANEL anion gap 16.0 mmol/ L 10-20 normal Not Available [address] Danyell Garcia, [place], [address], 07/17/2024 08:56:08 07/17/19 25 07/17/2024 COMP METAB OLIC PANEL glucose 96 mg/dL 70-99 normal Not Available [place] [address], [place], [address], 07/17/2024 08:56:08 07/17/19 25 07/17/2024 COMP METAB OLIC PANEL blood urea nitrogen 21 mg/dL 7-18 high Not Available [place] [address] [place], [address], 07/17/2024 08:56:08 07/17/19 25 07/17/2024 COMP METAB OLIC PANEL creatinine 0.88 mg/dL 0.55-1 .02 normal Not Available [address]anyell Garcia, [place], [address], 07/17/2024 08:56:08 07/17/19 25 07/17/2024 COMP METAB [...] care of your patie nt. Not Available [address] , [place], [address], 07/17/2024 08:56:08 07/17/19 25 07/17/2024 COMP METAB OLIC PANEL BUN/creatini ne ratio 23 12-20 high Not Available [address] , [place], [address], 07/17/2024 08:56:08 07/17/19 25 07/17/2024 COMP METAB OLIC PANEL total protein 6.8 g/dL 6.4-8. 2 normal Not Available [address] , [place], [address], 07/17/2024 08:56:08 07/17/19 25 07/17/2024 COMP METAB OLIC PANEL albumin 3.5 g/dL 3.4-5. 0 normal Not Available [address] , [place], [address], 07/17/2024 08:56:08 07/17/19 25 07/17/2024 COMP METAB OLIC PANEL globulin 3.3 g/dL 1.5-4. 0 normal Not Available [address] , [place], [address], 07/17/2024 08:56:08 07/17/19 25 07/17/2024 COMP METAB OLIC PANEL albumin/glob ulin ratio 1.1 0.5-2. 0 normal Not Available [address]anyell Garcia, [place], [address], 07/17/2024 08:56:08 07/17/19 25 07/17/2024 COMP METAB OLIC PANEL calcium 9.1 mg/dL 8.5-10 .1 normal Not Available [address] [place], [address], 07/17/2024 08:56:08 07/17/19 25 07/17/2024 COMP METAB OLIC PANEL osmolality serum calculated 283 mOsm/ kg 272-28 8 normal Not Available [address] [place], [address], 07/17/2024 08:56:08 07/17/19 25 07/17/2024 COMP METAB OLIC PANEL bilirubin total 0.2 mg/dL 0.2-1. 0 normal Use of this assay is not recom ashley d for patie nts under going treat ment with Eltro mbopa g due to the poten tial for false ly eleva zeyad resul ts. Not Available [address] , [place], [address], 07/17/2024 08:56:08 07/17/19 25 07/17/2024 COMP METAB OLIC PANEL SGOT/AST 20 U/L 15-37 normal Not Available [address] , [place], [address], 07/17/2024 08:56:08 07/17/19 25 07/17/2024 COMP METAB OLIC PANEL SGPT/ALT 33 U/L 14-59 normal Not Available [address] , [place], [address], 07/17/2024 08:56:08 07/17/19 25 07/17/2024 COMP METAB OLIC PANEL alkaline phosphatase total 118 U/L 46-116 high Not Available [address] , [place], [address], 07/17/2024 08:56:08 07/17/19 25 07/17/2024 COMP METAB OLIC PANEL performing lab SEE NOTE ML - [facility] R [address] [place] [address] Not Available [address] [place], [address], 07/17/2024 08:56:08 03/29/20 23 03/29/2023 CT, chest , w/ contr ast [facility] Medica l Ce Name: CAMILA TOVAR ICIA [address] Med[address] l [facility] Phys: Kater[place] [address] : 1965 Age: 57 Sex: F Acct: [id number] Loc: Glenda.CT PHONE #: [phone] Exam Date: 2022 Status : REG CLI FAX #: Rad# [id number] Unit# [id number] Admit Date: 2022 EXAMS: CPT CODE: [id number] CT CHEST W/CONT RAST 15215 CT CHEST WITH CONTRA ST, 2022: CLINIC [...] e PAGE 1 Signed Report (PAMELA NUED) [place] Ce Name: CAMILA TOVAR [place] [address] Medica l Propanc Phys: Katerina GOOD,[facility] [place] [address] : 1965 Age: 57 Sex: F Acct: [id number] Loc: G.CT PHONE #: [phone] Exam Date: 2022 Status : REG CLI FAX #: Rad# [id number] Unit# [id number] Admit Date: 2022 EXAMS: CPT CODE: [id number] CT CHEST W/CONT RAST 73910 2. Minima l right pleura l effusi [...] evalua tion is recomm ended, unless specif romerojacqui barr lyndsey in the impres marilyn. Electr [...] GARVEY Consul ting Provid er: ALBERTO STOCKTON [email or web address] [address] [place], [address], 06/22/2023 15:42:42 04/18/20 23 04/18/2023 - ankle AP lat w/1 obl lt [facility] [address] [place], [place] [address]a [facility] [address] Phys: Katerina GOOD,[place] [address] : 1965 Age: 57 Sex: F Acct: [id number] Loc: TiffanyRAD PHONE #: Exam Date: 2022 Status : REG CLI FAX #: [phone] Rad# [id number] Unit# [id number] Admit Date: 11/20/ 2023 EXAMS: CPT CODE: [id number] ANKLE [place] LAT W/[place] [address] 3 VIEWS LEFT ANKLE, 2022: CLINIC AL [...] relaye d to Dr. Myriam Borges via [place] text on 2022 at 11:35 AM Electr [...] GARVEY Consul ting Provid er: ALBERTO STOCKTON [email or web address] [address] , [place], [address], 06/23/2023 11:56:03 11/21/19 24 11/21/2023 CT, chest , w/ contr ast [facility] Med[facility] Ce Name: CAMILA TOVAR ICIBaljit [address] Phys: [place] [address] : 1965 Age: 58 Sex: F Acct: [id number] Loc: G.CT PHONE #: Exam Date: 2023 Status : REG CLI FAX #: Rad# [id number] Unit# [id number] Admit Date: 2023 EXAMS: CPT CODE: [id number] CT CHEST W/CONT RAST [address] CLINIC AL INFORM ATION: Observ ation with [...] marilyn. PAGE 1 Signed Report (PAMELA NUED) [place] [place] [facility] Ce [facility]: [facility] Medica l Propanc Phys: Albino ll LEAD BI DEVELOPER,[place] [address] : 1965 Age: 58 Sex: F Acct: [id number] Loc: G.CT PHONE #: Exam Date: 2023 Status : REG CLI FAX #: Rad# [id number] Unit# [id number] Admit Date: 2023 EXAMS: CPT CODE: [id number] 327 CT CHEST W/CONT RAST 66632 This report is genera zeyad using voice [...] Albrecht M.D. CC: Kath albrecht; Stevan maxwell LEAD BI DEVELOPER Dictat ed Date/T sue: 2023 (0946) Techno logist : GRACE GRESHAM Y Transc ribed Date/T seu: 2023 (0946) Transc riptio nist: DR.HAR CELESTE Conroy onic Signat ure Date/T sue: 2023 (46) Printe d Date/T sue: 2023 (49) BATCH NO: N/A PAGE 2 Signed Report CC'ed Logic: Orderi ng Provid er: ALBINO ACOSTA Y Attend ing Provid er: ALBINO ACOSTA Y Referr ing Provid er: ALBINO ACOSTA Y Consul ting Provid er: ALBERTO conley [address] [place], [address], 12/16/2023 16:01:38 07/17/19 25 07/17/2024 CT, chest , w/ contr ast [place] [place] [facility] Ce Name: PULASK KATHY JainR [facility] [address] Phys: Albino maxwell LEAD BI DEVELOPER,[place] [address] : 1965 Age: 59 Sex: F Acct: [id number] Loc: G.LAB PHONE #: [phone] Exam Date: 2024 Status : REG CLI FAX #: [phone] Rad# [id number] Unit# [id number] Admit Date: 2024 EXAMS: CPT CODE: [id number] CT CHEST W/CONT RAST 54235 CLINIC AL INFORM ATION: Follow -up squamo [...] tinum: Stable border line enlarg ed right development architect olater al paratr acheal node, image 20. [...] s PAGE 1 Signed Report (PAMELA NUED) [place] [facility] Med[facility] Ce Name: PULASK CristobalPATR [facility] [email or web address] Phys: Albino maxwell LEAD BI DEVELOPER,T katherinepam James[place] [address] : 1965 Age: 59 Sex: F Acct: [id number] Loc: G.LAB PHONE #: [phone] Exam Date: 2024 Status : REG CLI FAX #: [phone] Rad# [id number] Unit# [id number] Admit Date: 2024 EXAMS: CPT CODE: [id number] CT CHEST W/CONT RAST 07960 less than 1 cm, and/or adrena l [...] Albrecht M.D. CC: Kath albrecht; Stevan maxwell LEAD BI DEVELOPER Dictat ed Date/T sue: 2024 (1218) Techno logist : GRACE BELLAM Y Transc ribed Date/T sue: 2024 (1218) Transc riptio nist: DR.HAR CELETSE Conroy onic Signat ure Date/T sue: 2024 (1218) Printe d Date/T sue: 2024 (1220) BATCH NO: N/A PAGE 2 Signed Report CC'ed Logic: Orderi ng Provid er: ALBINO Oscar Attend ing Provid er: ALBINO Oscar Referr ing Provid er: ALBINO ACOSTA Y Consul ting Provid er: ALBERTO baer[address] , [place], [address], 07/18/2024 09:36:18 Result Notes None recorded. Problems Name Problem SNOMED Code Status Onset Date Resolution Date Notes Provider Name and Address Organization Details Recorded Time Squamous cell carcinoma of bronchus 584496707 Active Not Available [facility] 3 12:19:04 Centriacin ar emphysema 52241320 Active Not Available [facility] 3 12:19:04 History of clinical finding in subject 137017431 Active Not Available [facility] 3 12:19:04 Knee pain Active Not Available [facility] 3 12:19:04 Swelling of knee joint 023093364 Active Not Available [facility] 3 12:19:04 Plantar fascial fibromatos is 05592419 Active Not Available [facility] 3 12:19:04 Normocytic anemia 881601062 Active Not Available [facility] 3 12:19:04 Macrocytic anemia 95572129 Active Not Available [facility] 3 12:19:04 Hyponatrem ia 68059221 Active Not Available [facility] 3 12:19:04 Dupuytren' s contractur e of finger 538713282 Active Not Available [facility] 3 12:19:04 Atelectasi s 94008858 Active Not Available [facility] 3 12:19:04 Chronic obstructiv e pulmonary disease 53434487 Active Not Available [facility] 3 12:19:04 Major depression , single episode 99040583 Active Not Available [facility] 3 12:19:04 Nausea 813690422 Active Not Available [facility] 3 12:19:04 Squamous cell carcinoma of right lung 6795844709760 9102 Active Not Available [facility] 3 12:19:04 Acute exacerbati on of chronic obstructiv e pulmonary disease 141958324 Active Not Available [facility] 3 12:19:04 Diarrhea 22533720 Active Not Available [facility] 3 12:19:04 Pain due to neoplastic disease 4622345283292 2 Active Not Available [facility] 3 12:19:04 Cubital tunnel syndrome Active Not Available [facility] 3 12:19:04 Device in situ 371519257 Active Not Available [facility] 3 12:19:04 Osteoarthr itis of knee 848906534 Active Not Available [facility] 3 12:19:04 Chronic hyponatrem ia 35275482 Active 2021 Not Available [facility] 3 12:19:04 Chronic pain due to malignant neoplastic disease 854984647 Active 2021 Not Available [facility] 3 12:19:04 Pulmonary emphysema 12829391 Active 2021 Not Available [facility] 3 12:19:04 Primary malignant neoplasm of lung 70411402 Active 2021 Not Available [facility] 3 12:19:04 Congestive heart failure 64224442 Active 2022 Not Available [facility] 3 12:19:04 Acute bronchitis 57086753 Active 2022 Not Available [facility] 3 12:19:04 Pleural effusion 59443073 Active 2022 Not Available [facility] 3 12:19:04 Continuous dependence on cigarette smoking 0207822383907 08 Active 2023 SHOLA MAY NP [address] [facility],[address], [address] , [facility] & [place] 4 15:18:38 Pain of left ankle joint 7314260934031 9103 Active 2023 SHOLA MAY NP [address] [facility],[address], [place], [address] , [facility] LPNT [facility] & [place] 4 15:19:44 Problem Notes None recorded. Procedures Surgical History Date Name Laterality Status Provider Name and Address Organization Details Recorded Time hernia repair completed Not Available [facility] 08:18:48 hysterectomy completed Not Available [facility] 08:18:48 arthroscopy of knee completed Not Available [facility] 03/23/2022 08:18:48 Unlisted procedure stomach completed Not Available [facility] 2 08:18:47 Imaging Results Imaging Date Name Status LastModified by Organiz ation Details LastModified Time 03/29/2023 CT, chest, w/ contrast completed jhony [place] [address], [place], [address], 06/22/2023 15:42:42 04/18/2023 - ankle AP lat w/1 obl lt completed jhony [address] Danyell Garcia, [place], [address], 06/23/2023 11:56:03 11/21/2023 CT, chest, w/ contrast completed jarvis [address] [place], [address], 12/16/2023 16:01:38 07/17/2024 CT, chest, w/ contrast completed [place] [address] , [place], [address], 07/18/2024 09:36:18 Procedure Notes None recorded. Medical Equipment None Reported. Allergies Allergen ID Allergen Name Allergen Category Reaction Reaction Severity Criticality Documentation Date Start Date Code Code System Note Provider Name and Address Organization Details Recorded Time niacin medicatio n Not available Not available Not available 02/09/2022 7393 RxNorm Mckenna Londono [facility], [facility] & [place] 08:04:46 Medications Name Sig Start Date Stop [...] Updated DateTime 3 162.56 cm 30.5 kg/m2 53187 g 97.1 [degF] 98 % 98 % 57 /min 20 /min 123 mm[Hg] 57 mm[Hg] Pastora Pham [place] - [facility] & [place] 3 09:04:56 Date Recorded Body height Body mass index (BMI) Body weight Oxygen saturation Oxygen saturation in Arterial blood by Pulse oximetry Heart rate Respiratory rate Systolic blood pressure Diastolic blood pressure Provider Name and Address Organization Details Last Updated DateTime 4 162.56 cm 31.2 kg/m2 23261.0 9 g 97 % 97 % 68 /min 12 /min 100 mm[Hg] 60 mm[Hg] Edyta Wang [place] - LPNT [facility] & [place] 4 10:17:29 Date Recorded Body height Body mass index (BMI) Body weight Body temperature Oxygen saturation Oxygen saturation in Arterial blood by Pulse oximetry Heart rate Respiratory rate Systolic blood pressure Diastolic blood pressure Provider Name and Address Organization Details Last Updated DateTime 4 162.56 cm 30.8 kg/m2 93316.4 7 g 97.8 [degF] 99 % 99 % 75 /min 16 /min 95 mm[Hg] 45 mm[Hg] Chikis Medina [facility] & [place] 4 14:39:42 Date Recorded Body height Body mass index (BMI) Body weight Oxygen saturation Oxygen saturation in Arterial blood by Pulse oximetry Body temperature Heart rate Heart rate Respiratory rate Systolic blood pressure Diastolic blood pressure Provider Name and Address Organization Details Last Updated DateTime 4 162.56 cm 28.8 kg/m2 07537.5 2 g 96 % 96 % 97.3 [degF] 64 /min 64 /min 16 /min 142 mm[Hg] 72 mm[Hg] Nga [facility] & [place] 4 11:21:49 Date Recorded Body height Body mass index (BMI) Body weight Body temperature Heart rate Respiratory rate Systolic blood pressure Diastolic blood pressure Provider Name and Address Organization Details Last Updated DateTime 5 162.56 cm 27.7 kg/m2 33719.8 1 g 97.2 [degF] 85 /min 16 /min 90 mm[Hg] 42 mm[Hg] [facility] & [place] 5 13:59:53 Social History Question Answer Notes LastModified by Organizat ion Details LastModified Time Tobacco Smoking Status Current Every Day Smoker Former 1 PPD hx X 50 years. [facility] [place] 01/10/2023 11:38:36 What Is Your Level Of Caffeine Consumption? Heavy [email or web address] Information not available 04/18/2023 What Type Of Diet Are You Following? REGULAR [email or web address] Information not available 04/18/2023 Which Illicit Or Recreational Drugs Have You Used? Marijuana Daily [email or web address] Information not available 04/18/2023 What Was The Date Of Your Most Recent Tobacco Screening? 04/18/2023 [email or web address] Information not available 04/18/2023 What Is Your Current Pack Years? 30ormorepack years CHART_MERGE Information not available 08/10/2022 At What Age Did You Start Smoking Tobacco? 8 [email or web address] Information not available 04/18/2023 How Much Tobacco Do You Smoke? 0.5 PPD Smoking 10 Cigerettes Daily [email or web address] Information not available 08/01/2023 Have You Used IV Drugs? No [email or web address] Information not available 04/18/2023 Sex: Unknown Functional Status Question Answer Note LastModified by Organizat ion Details LastModified Time Do you use any illicit or recreational drugs? Yes [email or web address] Information not available 04/18/2023 What is your level of alcohol consumption? None [email or web address] Information not available 04/18/2023 What is your exercise level? None [email or web address] Information not available 04/18/2023 Mental Status None [...] cancer of unknown primary site grandm other [email or web address] Not available 07/23/2024 13:47:24 Medical History Condition Response None Y Gynecological HistoryNo gynecological history recorded. Obstetrics History GPAL:G 0 P 0 0 0 0 Past Encounters Encounter ID Performer Location Encounter Start Date Encounter Closed Date Diagnosis/Indication Diagnosis SNOMED-CT Code Diagnosis ICD10 Code Diagnosis Note [id number] MD ALBERT [facility] 1 [facility] [place] [address] 02/09/2022 09:02:45 02/09/2022 15:13:07 Chronic hyponatremia 63060755 E87.1 Suspect SIADH. Sodium remains stable at 126. Patient recommende d to continue on salt tabs twice daily. She is advised to continue to monitor fluid intake. Will continue to trend sodium levels. Normocytic anemia 394298 002 D64.9 Patient continues to demonstrat e persistent normocytic anemia. She has remained relatively stable. Will continue to trend levels. Chronic pa in due to malignant neoplastic disease 099119902 G89.3 Continue Percocet p.r.n.. Nausea 635502280 R11.0 Continue Phenergan p.r.n.. Squamous c ell carcinoma of right lung [id number] 2380222 C34.31 Clinically the patient remains stable. She [...] informatio n in the electronic health record. [id number] MD ALBERT [facility] [address] [place] [address] 03/08/2022 08:43:41 03/08/2022 09:10:30 Squamous cell carcinoma of right lung [id number] 5916564 C34.31 [id number] MD AL[facility]ERT [facility] [address] [place] [address] 03/09/2022 08:26:53 03/09/2022 09:15:35 Squamous cell carcinoma of right lung [id number] 6275227 C34.31 Patient actually looks quite well today. [...] the electronic health record. Chronic hyponatremia 503 32360 E87.1 Suspect SIADH. Sodium back down a little to 123. Patient notes that she was taken off her sodium tabs during the hospitaliz ation for CHF. Will hold off restarting salt tabs for now given recent CHF. Discussed with patient that she needs to discuss her hyponatrem ia with Cardiology . Need to know there cutoff to consider restarting salt tabs. Normocytic anemia 298922 002 D64.9 Patient continues to demonstrat e persistent normocytic anemia. She has remained relatively stable. Will continue to trend levels. Nausea 809742972 R11.0 Continue Phenergan p.r.n.. Chronic pa in due to malignant neoplastic disease 295753593 G89.3 Continue Percocet p.r.n.. [id number] MD ABLERT [facility] [address] [place] [address] [place] [address] 03/23/2022 08:16:41 03/23/2022 08:41:29 Squamous cell carcinoma of right lung [id number] 6585777 C34.31 Clinically the patient continues to do [...] free to give me a call at [phone]. I personally spent 40 minutes in patient care on this date reviewing records, obtaining interim history, performing a physical exam, ordering and reviewing today's labs, counseling the patient, writing chemothera py orders, and documentin g the clinical informatio n in the electronic health record. Chronic hyponatremia 503 21905 E87.1 Suspect SIADH. Sodium back down to 120 today. Patient notes that she was taken off her sodium tabs during the hospitaliz ation for CHF. Will hold off restarting salt tabs for now given recent CHF. No significan t symptoms noted despite the hyponatrem ia. Recommend fluid restrictio n. Normocytic anemia 958521 002 D64.9 Patient continues to demonstrat e persistent normocytic anemia. She has remained relatively stable. Will continue to trend levels. Nausea 840486187 R11.0 Continue Phenergan p.r.n.. Chronic pa in due to malignant neoplastic disease 039077602 G89.3 Continue Percocet p.r.n.. [id number] MD AL[facility]ERT [facility] [address] [place] [address] [place] [address] 04/06/2022 08:41:30 04/06/2022 09:01:15 Squamous cell carcinoma of right lung [id number] 2969230 C34.31 Clinically the patient remains relatively stable [...] the electronic health record. Chronic hyponatremia 503 76429 E87.1 Suspect SIADH. Sodium slightly improved to 123 today. Recommend continued fluid restrictio ns. Continue to hold salt tabs for now given recent CHF exacerbati on. If sodium noted trend below 1 20 May need to restart though. Normocytic anemia 027231 002 D64.9 Patient continues to demonstrat e persistent normocytic anemia. She has remained relatively stable. Will continue to trend levels. Nausea 436712433 R11.0 Continue Phenergan p.r.n.. Chronic pa in due to malignant neoplastic disease 184519963 G89.3 Continue Percocet p.r.n.. [id number] MD [facility]ERT [facility] [address] [place] [address] [place] [address] 05/04/2022 08:19:39 05/04/2022 08:34:41 Squamous cell carcinoma of right lung [id number] 9267138 C34.31 Clinically the patient continues to do [...] results to the patient. Chronic hyponatremia 503 83163 E87.1 Suspect SIADH. Sodium slightly improved to 123 today. Recommend continued fluid restrictio ns. Continue to hold salt tabs for now given recent CHF exacerbati on. If sodium noted trend below 120 may need to restart though. Repeat level today remains stable at 128. Normocytic anemia 567632 002 D64.9 Patient continues to demonstrat e persistent normocytic anemia. She has remained relatively stable. Will continue to trend levels. repeat CBC today actually showed some mild improvemen t in the hemoglobin back up to the 11s. Nausea 718545373 R11.0 Continue Phenergan p.r.n.. 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 [id number] MD ALBERT [facility] [address] [place] [address] DR MA[address] [place] [address] 05/10/2022 08:01:35 05/10/2022 08:26:33 Chronic obstructive pulmonary disease 81318225 J44.9 Pulmonary emphysema 8743 3001 J43.9 Primary ma lignant neoplasm of lung 39686337 C34.90 History of non-small cell malignant neoplasm of lung 530565966 Z85.118 [id number] MD ALBERT [facility] [address] [place] [address] DR MAZARIEG[address] [place] [address] 06/14/2022 10:16:57 06/14/2022 11:31:52 Chronic obstructive pulmonary disease 39434921 J44.9 Pulmonary emphysema 8743 3001 J43.9 Primary ma lignant neoplasm of lung 70881845 C34.90 History of non-small cell malignant neoplasm of lung 764378092 Z85.118 Congestive heart failure 94404673 I50.9 history of congestive heart failure with EF of 30 to 35% Chronic hyponatremia 503 98742 E87.1 History of pleural effusion 895794184 Z87.09 Acute bronchitis 3780429 2 J20.9 Pleural effusion 2690639 8 J90 [id number] MD ALBERT [facility] [address] [place] [address] DR MAZAR[address] [place] [address] 07/13/2022 10:38:32 07/13/2022 11:04:01 Chronic obstructive pulmonary disease 69197544 J44.9 Pulmonary emphysema 8743 3001 J43.9 Primary ma lignant neoplasm of lung 90805344 C34.90 History of non-small cell malignant neoplasm of lung 278797664 Z85.118 Congestive heart failure 12012498 I50.9 history of congestive heart failure with EF of 30 to 35% Chronic hyponatremia 503 81489 E87.1 History of pleural effusion 950705525 Z87.09 Pleural effusion 8910528 8 J90 [id number] OS[facility]O [facility] [address] [place] [address] [place] [address] 08/05/2022 09:07:13 08/05/2022 09:44:04 Squamous cell carcinoma of right lung 8533864517 8924193 C34.31 Diagnosis: 1. Squamous cell carcinoma of [...] the electronic health record. Chronic hyponatremia 503 12547 E87.1 Suspect SIADH. Repeat laboratory evaluation today. Labs pending at this time. Normocytic anemia 013982 002 D64.9 Patient continues to demonstrat e persistent normocytic anemia. She has remained relatively stable. Will continue to trend levels. Repeat laboratory evaluation today. Labs pending at this time. Nausea 347012863 R11.0 Continue Phenergan p.r.n.. 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 [id number] Vishnu Contreras MD [facility]-[address] [place] [address] 09/09/2022 11:35:50 09/09/2022 11:36:39 Chronic pain due to malignant neoplastic disease 495041775 C80.1 Primary ma lignant neoplasm of lung 94824805 C34.90 [id number] MD ALBERT [facility] [address] [place] [address] [address] [place] [address] 10/05/2022 09:04:39 10/05/2022 09:36:06 Chronic obstructive pulmonary disease 31664404 J44.9 Pulmonary emphysema 8743 3001 J43.9 Primary ma lignant neoplasm of lung 13974984 C34.90 History of non-small cell malignant neoplasm of lung 594538336 Z85.118 Congestive heart failure 92809856 I50.9 history of congestive heart failure with EF of 30 to 35% Chronic hyponatremia 503 20004 E87.1 History of pleural effusion 464142803 Z87.09 Acute exac erbation of chronic obstructive pulmonary disease 769955895 J44.1 Acute bronchitis 0523609 2 J20.9 [id number] Vishnu Contreras MD [facility] [place] [address] 10/07/2022 16:06:16 10/07/2022 16:29:36 Chronic pain due to malignant neoplastic disease 754105418 C80.1 [id number] MD ALBERT [facility] [address] [place] [address] [place] [address] 12/14/2022 08:30:46 12/14/2022 09:10:13 Squamous cell carcinoma of right lung 1248221088 1164604 C34.31 squamous cell carcinoma of right lungDiagno [...] CBC and CMP today. Chronic hyponatremia 503 29227 E87.1 Suspect SIADH From smoking /COPD.. Repeat laboratory evaluation today. Labs pending at this time. Normocytic anemia 274438 002 D64.9 Patient continues to demonstrat e persistent normocytic anemia. She has remained relatively stable. Will continue to trend levels. Repeat laboratory evaluation today. Labs pending at this time. Nausea 577379360 R11.0 Continue Phenergan p.r.n.. 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 Continuous dependence on cigarette smoking 9426191132 47876 F17.210 I have discussed with the patient smoking cessation. She is not ready to quit yet. Screening for malignant neoplasm of colon 202786243 Z12.11 patient declined colonoscop y. Screening mammography 24 223303 Z12.31 patient declined mammogram. Central ve nous catheter in situ 336497549 Z95.828 Patient needs Port-A-Cat h flushed every month. [id number] MD ALBERT [facility] [address] [place] [address] DR MA[address]AR[address] [place] [address] 01/10/2023 11:23:11 01/10/2023 11:43:27 Chronic obstructive pulmonary disease 93439909 J44.9 Pulmonary emphysema 8743 3001 J43.9 Primary ma lignant neoplasm of lung 47073505 C34.90 History of non-small cell malignant neoplasm of lung 844754003 Z85.118 Congestive heart failure 72498168 I50.9 history of congestive heart failure with EF of 30 to 35% History of pleural effusion 458700848 Z87.09 [id number] MD ALBERT [facility] [address] [place] [address] [place] [address] 04/18/2023 08:36:16 04/18/2023 09:37:54 Squamous cell carcinoma of right lung 0071586533 8290707 C34.31 squamous cell carcinoma of right lung [...] back in 4 months. Chronic hyponatremia 503 76314 E87.1 Suspect SIADH From smoking /COPD. And from being on Aldactone. Repeat laboratory evaluation today. Labs pending at this time. Normocytic anemia 550316 002 D64.9 Patient continues to demonstrat e persistent normocytic anemia. She is on folic acid and iron. I am repeating iron studies today. 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 Seen by pain specialist but declined procedure . Continuous dependence on cigarette smoking 2283011827 75656 F17.210 I have discussed with the patient smoking cessation. She is not ready to quit yet. Screening for malignant neoplasm of colon 753181300 Z12.11 patient declined colonoscop y, will order Cologuard. Screening mammography 24 495060 Z12.31 patient declined mammogram. Central ve nous catheter in situ 485999770 Z95.828 Patient needs Port-A-Cat h flushed every month. Pain of le ft ankle joint 8052530698 0629889 M25.572 I have ordered x-ray.- Addendum, discuss with Radiology, x-ray showed 2 small fractures. Patient was referred urgently to orthopedic . [id number] MD ALBERT [facility] [address] [place] [address] [address] [place] [address] 08/01/2023 10:04:10 08/01/2023 10:33:32 Chronic obstructive pulmonary disease 85218090 J44.9 Pulmonary emphysema 8743 3001 J43.9 Primary ma lignant neoplasm of lung 03492278 C34.90 History of non-small cell malignant neoplasm of lung 765000469 Z85.118 Congestive heart failure 39957148 I50.9 history of congestive heart failure with EF of 30 to 35% History of pleural effusion 007198527 Z87.09 [id number] SHOLA MAY, OSITO logan [facility] [address] [place] [address] [place] [address] 10/25/2023 14:21:53 10/25/2023 14:59:12 Squamous cell carcinoma of right lung 0948615107 3866742 C34.31 Diagnosis: 1. Squamous cell carcinoma of [...] the electronic health record. Chronic hyponatremia 503 34070 E87.1 Suspect SIADH From smoking /COPD. And from being on Aldactone. Repeat laboratory evaluation today. Labs pending at this time. Normocytic anemia 354994 002 D64.9 Patient continues to demonstrat e persistent normocytic anemia. She is on folic acid and iron. Will monitor periodical ly. 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 Seen by pain specialist but declined procedure. Continuous dependence on cigarette smoking 9738639794 74124 F17.210 Patient educated regarding smoking cessation. Screening for malignant neoplasm of colon 153012518 Z12.11 Cologuard was negative. Screening mammography 24 982314 Z12.31 Patient declined mammogram. Patient educated regarding the need to stay on top of all cancer screenings . Central ve nous catheter in situ 224656770 Z95.828 Patient needs Port-A-Cat h flushed every month. Pain of le ft ankle joint 2651246555 9066076 M25.572 Appears resolved. [id number] OSITO VENEGAS [facility] [address] [place] [address] [place] [address] 04/23/2024 11:09:59 04/23/2024 11:26:42 Squamous cell carcinoma of right lung 4476895014 6730272 C34.31 Diagnosis: 1. Squamous cell carcinoma of [...] the electronic health record. Chronic hyponatremia 503 93688 E87.1 Suspect SIADH From smoking /COPD. And from being on Aldactone. Repeat laboratory evaluation today. Labs pending at this time. Normocytic anemia 474882 002 D64.9 Patient continues to demonstrat e persistent normocytic anemia. She is on folic acid and iron. Will monitor periodical ly. 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 Seen by pain specialist but declined procedure. Continuous dependence on cigarette smoking 1986170373 06205 F17.210 Patient educated regarding smoking cessation. Screening for malignant neoplasm of colon 825166845 Z12.11 Cologuard was negative. Screening mammography 24 434458 Z12.31 Patient declined mammogram. Patient educated regarding the need to stay on top of all cancer screenings . Central ve nous catheter in situ 203651605 Z95.828 Patient needs Port-A-Cat h flushed every month. Pain of le ft ankle joint 1851439498 9647301 M25.572 Appears resolved. [id number] MD ALBERT [facility]END[facility] [address] [place] [address] [place] [address] 07/23/2024 13:46:11 07/23/2024 14:25:03 Squamous cell carcinoma of right lung 3339200850 4228242 C34.31 Diagnosis: 1. Squamous cell carcinoma of [...] the electronic health record. Chronic hyponatremia 503 95016 E87.1 Suspect SIADH From smoking /COPD. And from being on Aldactone. Repeat laboratory evaluation today. Labs pending at this time. Normocytic anemia 937477 002 D64.9 Patient continues to demonstrat e persistent normocytic anemia. She is on folic acid and iron. Will monitor periodical ly. 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 Seen by pain specialist but declined procedure. Continuous dependence on cigarette smoking 2872930854 96002 F17.210 Patient educated regarding smoking cessation. Screening for malignant neoplasm of colon 674393439 Z12.11 Cologuard was negative. Screening mammography 24 751924 Z12.31 Patient declined mammogram. Patient educated regarding the need to stay on top of all cancer screenings . Central ve nous catheter in situ 501116939 Z95.828 Patient needs Port-A-Cat h flushed every month. Pain of le ft ankle joint 3103180673 2692727 M25.572 Appears resolved. Health Concerns Section Related Observation LastModified by Organization Detai ls LastModified Time None Recorded Concern Status LastModified by Organization Details LastModified Time None Recorded Advance Directives Directive None Recorded Payers Insurance Date Sequence Insurance Name Policy Number Policy Rabago Covered Member ID Rabago Member ID Guarantor Name 04/23/2024 1 [place] Beverley Antoine [id number] Beverley Antoine 07/20/2024 1 [employer] (MEDICARE REPLACEMENT/AD VANTAGE - PPO) Beverley Antoine [id number] Beverley Antoine 04/23/2024 1 [employer] (MEDICARE REPLACEMENT HMO) Beverley Antoine [id number] Beverley Antoine 04/23/2024 1 [place] Beverley Antoine [id number] Beverley Antoine Notes Date Note Type Note [...] The patient was ultimately airlifted to the [facility]. She was loaded with Depakote and her [...] grand mal seizure and was transferred to [facility]. While there she underwent additional imaging. Chest [...] 2023 showed chronic changes. 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 Patient is status post radiation and chemotherapy. Patient received carboplatin and Paclitaxel, she received durvalumab per Dr. Fang. Medications in the past have included O2, Advair, Incruse/Trelegy, albuterol I, alesia pena, Tescarmen Gomez. Dyspnea, timing with exertion, and again is [...] with rest. Patient had repeat bronchoscopy at [facility] June 2022: Revealed narrowed bronchus intermedius but patent, negative for malignant cells, fungal cultures negative, fungal stain negative, AFB MTB DNA PCR negative . Fungal culture and AFB culture negative. Previous ABG in January 2022 was 7.43, pCO2 38, PO2 39 on 40% O2. She was transferred to [facility] in 2021, COVID-19 negative at that time. She was treated for congestive heart failure at [facility] in 2021.he was treated at [facility] for congestive heart failure. note she has an ejection fraction of 30-35% noted at [facility] in January 2022. She is [...] used to perform coronal and sagittal reconstructions. [employer] mA automated exposure control was utilized [...] pulmonary nodules will be based on the [facility] criteriaNOTE: Any incidentally noted liver [...] used to perform coronal and sagittal reconstructions. [employer] mA automated exposure control was utilized [...] pulmonary nodules will be based on the [facility] criteriaNOTE: Any incidentally noted liver lesions equal [...] of incidental pulmonary nodules are based on [facility] criteria.Transcribed Date: 07/08/2022 1:57 PMTranscribed By: Huy [...] pulmonary nodules will be based on the [facility] criteria.Any incidentally noted liver lesions equal to [...] interactions with all of the prescribed and [id number] medications with a pharmacist, she again voiced [...] again voiced understanding. Migel Bullock MD [address] [facility],[address], [place], [address], [place] - [place] - [place] & [place] 08/01/2023 10:36:37 10/25/19 24 text/htm l 58 [...] The patient was ultimately airlifted to the [facility]. She was loaded with Depakote and her [...] grand mal seizure and was transferred to [facility]. While there she underwent additional imaging. Chest [...] with UC, pulmonology, and cardiology. SHOLA MAY, COLORIST DYER [address] [facility],[address], [place], [address], [place] - [place] 10/25/2023 15:20:22 04/23/20 24 text/htm l 58 [...] The patient was ultimately airlifted to the [facility]. She was loaded with Depakote and her [...] grand mal seizure and was transferred to [facility]. While there she underwent additional imaging. Chest [...] pulmonology, and cardiology. SHOLA MAY NP [address] [facility],[address], [place], [address], [facility] & [place] 05/30/2024 13:33:09 OBGyn Episode No OBEpisode recorded.
--- NOTE | 2024-10-15 12:00 | EXP.PAIN.SOA ---
[facility] Disclaimer: The information contained in this section may have been updated after the patient was seen, as this information can be updated by other users. Medical History (Updated 10/15/24 @ 12:02 by Sandra Gauthier APRN) Carpal tunnel syndrome HLD (hyperlipidemia) Vitamin D deficiency Bipolar disorder HTN (hypertension) Diabetes Mitral valve regurgitation Mitral valve disease Lung cancer CHF (congestive heart failure) Congestive cardiomyopathy Seizures Insomnia Anxiety Surgical History History of left knee replacement History of bronchoscopy H/O hernia repair H/O: hysterectomy History of bilateral fallopian tube excision History of ankle surgery Family History Other Alcoholism Anxiety Arthritis Bipolar disorder Bone cancer Cataracts, bilateral Depression GERD (gastroesophageal reflux disease) Gout Heart attack Hypertension Pulmonary emphysema Skin cancer Substance abuse Social History Smoking Status: Current every day smoker alcohol intake: never current occupational status: other Travel in the last 8 weeks?: None PM Subjective & Objective Subjective Subjective:: Patient is a pleasant 59-year-old female who presents today for worsening back pain. She rates it a 7 out of 10. She does state from our last visit she ended up having an episode of severe chest pain last week. She states it felt like a vice composition molder and it was just crushing and that it was constant unrelated to any activity. Patient states that she woke up around 3 AM with this pain and it lasted at least an hour and a half straight. She does state that it did get more severe around 430 to 6 AM and then after that it did ease down. Patient does have a significant heart history however when she talked to her primary care and then tried to get in with cardiology they were stating it would be about 3 months. Patient does state that she questions whether or not if she may have had a heart attack or other significant issue. Patient does state that she still feels like she has pressure in and around her axilla along the left side. Patient does also still have the chronic low back pain that does radiate down her legs. Her Yazan has been reviewed and is appropriate. Review of Systems: General: No recent weight changes, no fever, no sleep disturbances Respiratory: No cough, no shortness of air, no recurring pulmonary infections Cardiovascular/peripheral vascular: No chest pain, no palpitations, no edema, no shortness of breath Gastrointestinal: No new onset incontinence, normal bowel movements reported Genitourinary: No new onset incontinence Musculoskeletal: Chest pain Psychiatric: [Normal mood/affect] Neurological: [Denies weakness in extremities], [denies balance issues] Pain at rest (0-10 scale): 7 Objective Objective:: Physical Exam: General: Alert and oriented x3, no acute distress, pleasant and cooperative Lungs: Respirations even and unlabored, symmetrical chest expansion Eyes: PERRL Musculoskeletal: Flexion and extension of lumbar [spine] somewhat guarded secondary to pain, [antalgic gait noted] Neurological: Speech clear, no gross sensory deficit Has patient had previous pain injection?: No Conservative treatment options previously tried: Home exercise plan Length of treatment: Longer than 12 weeks Meds Home Medications and Allergies Home Medications ?Medication ?Instructions ?Recorded ?Confirmed ?Type atorvastatin 40 mg tablet 40 mg PO DAILY Cholesterol 06/29/24 10/01/24 History bisoprolol fumarate 5 mg tablet 5 mg PO DAILY BLOOD PRESSURE 06/29/24 10/01/24 History folic acid 1 mg tablet 1 mg PO DAILY SUPPLIMENT 06/29/24 10/01/24 History metformin 500 mg tablet 500 mg PO BID Diabetes 06/29/24 10/01/24 History pregabalin 50 mg capsule 50 mg PO BID Pain 06/29/24 10/01/24 History quetiapine 200 mg tablet 200 mg PO DAILY . 06/29/24 10/01/24 History ropinirole 5 mg tablet 5 mg PO DAILY RESTLESS LEGS 06/29/24 10/01/24 History sacubitril 24 mg-valsartan 26 mg 1 tab PO BID Heart Failure 06/29/24 10/01/24 History tablet (Entresto) tiotropium bromide 18 mcg capsule 1 cap inhalation DAILY Breathing 06/29/24 10/01/24 History with inhalation device (Spiriva Problems with HandiHaler) zonisamide 100 mg capsule 200 mg PO DAILY SEIZURES 06/29/24 10/01/24 History tizanidine 4 mg tablet (Zanaflex) 4 mg PO TID #42 tabs 09/17/24 10/01/24 Rx baclofen 10 mg tablet 10 mg PO TID #42 tabs 10/03/24 Rx New Prescriptions to Start Prescriptions: Allergies Allergy/AdvReac Type Severity Reaction Status Date / Time acetaminophen Allergy Rash Verified 08/21/24 10:10 hydrocodone Allergy Rash Verified 08/21/24 10:10 niacin Allergy Unknown Verified 08/21/24 10:10 allergy reaction risperidone Allergy Unknown Verified 08/21/24 10:10 allergy reaction Sulfa (Sulfonamide Allergy Unknown Verified 08/21/24 10:10 Antibiotics) allergy reaction bupropion AdvReac Seizure Verified 08/21/24 10:10 venlafaxine AdvReac Seizure Verified 08/21/24 10:10 Assessment and Plan *Assessment and plan (1) Chest pain at rest: Status: Acute Category: Medical Code(s): R07.9 - Chest pain, unspecified Plan I did discuss with the patient at length due to the complaints of the crushing chest pain last week that was unrelated to any activity and her significant cardiac history that I would like her to be evaluated by retail support manager as soon as possible. I did correctional classification counselor her that we can always still do interventions for her low back and leg symptoms however we fall on the back burner due to these other complaints. We will see about reaching out to Dr. Ashraf's office here to get her in however we were not able to get anybody on the phone during today's visit. We will make sure that she does have a referral to this office however she was counseled that it is our recommendation to be seen in the ER for evaluation. Patient agrees with this plan of care and they do state they will go down there following our visit. We will follow-up with her after cardiology consult. Patient has been instructed to contact the clinic with any concerns before the next appointment. Dr. Rosas has reviewed this note and agrees with this plan of care. This note was dictated using voice recognition software and make contain errors or omissions. All injections are used with Lidocaine, Bupivacaine and dexamethasone. Occasionally urine drug screen is needed to verify patient's compliance with our office pain contract. This is ordered based off specific treatments related to chronic pain with the potential to abuse certain medications.
[2024-10-15 12:18] VITALS: BP 100/60; PULSE 90; RESP 14; O2SAT 99; BMI 27.3
== END 2024-10-15 23:59 | disposition home or self-care (01) ==
LOC: SC.PAIN 11:12
PROVIDERS: PCP Family Medicine; Visit Provider Nurse Practitioner Family
DX: R07.9 Chest pain, unspecified (principal); Z96.652 Presence of left artificial knee joint; F17.200 Nicotine dependence, unspecified, uncomplicated
CPT/HCPCS: 99212; G0463

== ENCOUNTER 2024-10-16 09:17 | Outpatient (CLI) | payer MEDICARE, SELFPAY ==
[2024-10-16 09:39] LABS: Basophils % 0.6 % (0.1-2.0); Eosinophils # 0.1 Kmm3 (0.0-0.4); Eosinophils % 1.5 % (0.1-12.0); Hematocrit 32.3 % (37.0-47.0); Hemoglobin 10.7 g/dL (12.2-16.2); Immature Granulocytes # 0.02 10^3uL; Immature Granulocytes % 0.3 %; Lymphocytes # 1.8 K/mm3 (0.7-4.5); Lymphocytes % 26.8 % (10-50); Mean Corpuscular HGB Conc 33.1 g/dL (31.8-35.4); Mean Corpuscular Volume 99.7 fl (81-99); Mean Platelet Volume 10.9 fl (7.4-10.4); Monocytes # 0.6 K/mm3 (0.1-1.0); Monocytes % 8.4 % (1.7-9.3); Neutrophils # 4.3 K/mm3 (1.8-7.8); Neutrophils % 62.4 % (37.0-80.0); Nucleated Red Blood Cells # 0 10^3/uL; Nucleated Red Blood Cells % 0 %; Platelet Count 226 K/mm3 (142-424); Red Blood Count 3.24 M/mm3 (4.20-5.40); Red Cell Distribution Width 13.4 % (11.5-17.5); Red Cell Distribution Width-SD 49.5 fL; White Blood Count 6.8 K/mm3 (4.8-10.8)
[2024-10-16 10:31] LABS: Alanine Aminotransferase 24 U/L (12-78); Albumin Level 3.9 g/dl (3.5-5.0); Alkaline Phosphatase 76 U/L (38-126); Anion Gap 10.8 mEq/L (5-15); Aspartate Amino Transferase 24 U/L (14-36); Bilirubin,Direct 0.1 mg/dl (0.0-0.4); Bilirubin,Indirect 0.1 mg/dL (0.0-0.9); Bilirubin,Total 0.2 mg/dl (0.2-1.3); Bilirubin,Unconjugated 0.1 mg/dL (0.0-1.1); Blood Urea Nitrogen 17 mg/dl (7-17); Carbon Dioxide 24 mmol/L (22.0-30.0); Chloride 110 mmol/L (98-107); Chol/HDL Ratio 2.5 (1-3.5); Cholesterol 119 mg/dl (140-200); Estimated Glomerular Filt Rate 73 ml/min (>60); GFR (African American) 89 ML/MIN (>60); Glucose 126 mg/dl (74-100); HDL Cholesterol 47 mg/dl (40-60); Magnesium 1.8 mg/dl (1.6-2.3); Potassium 3.8 mmoL/L (3.5-5.1); Sodium 141 mmol/L (136-145); Total Protein,Serum 6.2 g/dl (6.3-8.2); Triglycerides 211 mg/dl (30-150); VLDL Cholesterol 42 mg/dL (0-40)
[2024-10-16 10:51] LABS: Free T4 (Free Thyroxine) 0.76 ng/dl (0.78-2.19)
[2024-10-16 10:56] LABS: Direct LDL Cholesterol 58.35 mg/dL (100-129)
[2024-10-16 11:02] LABS: Troponin I < 0.01 ng/ml (0.00-0.034)
[2024-10-16 11:18] LABS: Thyroid Stimulating Hormone 1.06 uIU/mL (0.465-4.68)
== END 2024-10-16 23:59 | disposition home or self-care (01) ==
LOC: LAB 09:18
PROVIDERS: PCP Family Medicine; Visit Provider Nurse Practitioner Family
DX: I25.10 Atherosclerotic heart disease of native coronary artery without angina pectoris (principal); I10 Essential (primary) hypertension; I42.0 Dilated cardiomyopathy; R94.31 Abnormal electrocardiogram [ECG] [EKG]
CPT/HCPCS: 80048; 80061; 80076; 83735; 84439; 84443; 84484; 85025; J1642

== ENCOUNTER 2024-10-29 12:48 | Outpatient (CLI) | payer MEDICARE, SELFPAY ==
--- OUTSIDE RECORDS SUMMARY | 2024-10-29 12:51 | XMS_ITS | Data Portability ---
Author Organization [place] - [facility] & [place] LEENA ADMIN Address [address] [place] [id number] Care Team Providers Care Online Marketing Coordinator Name Role Phone KATH WANG Primary Care Provider [phone] MIGEL BULLOCK Extruder Tender DAVID ZIEGLER Extruder Tender [phone] TRACY THOMPSON Radiation Oncologist [phone] [facility] Hematology/Onco logy Assessment No assessment recorded. Plan of Treatment Reminders Order Date Submit Date Provider Last Modified By Organization Details Last Modified Time Details Appointments FOLLOW UP 30 2024 10:30A M SHOLA MAY NP Not available Not available Not available Lab CMP, serum or plasma [address] [facility]( Lab), [address], [place], [address], 07/23/2024 14:21:15 CBC w/ auto diff [address]( Lab), [place], [address], 07/23/2024 14:21:15 CMP, serum or plasma 2023 024 JOSE MANUEL [facility]( Lab), [place], [address], 04/23/2024 12:16:30 CBC w/ auto diff 2023 024 JOSE MANUEL [facility]( Lab), [address], [place], [address], 04/23/2024 11:55:22 CMP, serum or plasma 2023 024 [facility]( Lab), [address], [place], [address], 10/25/2023 15:52:37 CBC w/ auto diff 2023 024 chelly [facility]( Lab), [address], [place], [address], 10/25/2023 15:52:37 iron + TIBC + ferritin, serum [address] (Registration ), [address], [place], [address], 04/25/2023 09:53:54 iron saturatio n, serum or plasma [address] (Registration ), [address], [place], [address], 04/25/2023 09:53:54 noninvasi ve colorecta l cancer DNA + occult blood screening , QL, stool [address] (Registration ), [address], [place], [address], 04/25/2023 09:53:54 CMP, serum or plasma 2022 023 [facility]( Lab), [address], [place], [address], 04/18/2023 11:15:30 CBC w/ auto diff 2022 023 JOSE MANUEL [facility]( Lab), [address], [place], [address], 04/18/2023 10:39:52 Referral None recorded. Procedures None recorded. Surgeries None recorded. Imaging CT, chest, w/ contrast 2024 025 [facility] (Centralized Scheduling), [address], [place], [address], 07/23/2024 14:21:15 CT, chest, w/ contrast 2023 024 JOSE MANUEL [facility] (Centralized Scheduling), [address], [place], [address], 07/17/2024 12:22:18 CT, chest, w/ contrast 2023 024 JOSE MANUEL [facility] (Centralized Scheduling), [address], [place], [address], 11/21/2023 09:51:09 XR, ankle, 3 or more view - S/P fall, left ankle pain. X ray of left ankle. 2022 023 brook 5 [facility] (Centralized Scheduling), [address], [place], [address], 06/22/2023 09:50:56 CT, chest, w/ contrast - Please schedule prior to clinic follow-up on 3. 2022 024 JESSIE [facility] (Centralized Scheduling), [place], [address], 10/17/2023 03:25:11 Medication Orders Breo Ellipta 200 mcg-25 mcg/dose powder for inhalatio n 2023 024 5 Total [facility], [address] [facility] [place], [address], 10/25/2023 14:40:18 Patient TargetsNo targets recorded. Patient Instructions Encounter Date Encounter Id Patient Instructions Last Modified By Organization Details Last Modified Time 08/01/2023 [id number] Continue Advair 250 or Breo 200, Incruse, albuterol or albuterol nebs q4hr prn. Tobacco cessation. 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 Continue Advair 250 one puff bid with Incruse one puff daily or Trelegy 200 one puff daily. She is also following with oncology and a sports attorney she states. Her Cardiology she states is Dr. Gaffney. She has an appointment with Oncology in September [address] with a [address] up [address] of the chest. Return to clinic October 2023. [email or web address] Not available 08/01/2023 10:35:26 Reason for Referral None Reported. Results Created Date Observation Date Name Description Value Unit Range Abnormal Flag Note LastModifiedBy Organization Detail LastModifiedTime 03/29/2003/29/2023 CREAT ININE W/GFR note SEE NOTE Order ing Provi kathia: Aniyah wyman MD Not Available [address] , [place], [address], 03/29/2023 09:10:25 03/29/2003/29/2023 CREAT ININE W/GFR creatinine 0.72 mg/dL 0.55-1 .02 normal Not Available [address] , [place], [address], 03/29/2023 09:10:25 03/29/2003/29/2023 CREAT ININE W/GFR GFR [...] care of your patie nt. Not Available [address] , [place], [address], 03/29/2023 09:10:25 03/29/20 23 03/29/2023 CREAT ININE W/GFR performing lab SEE NOTE ML - [facility] R [address] [facility] [address] Not Available [address] [place], [address], 03/29/2023 09:10:25 04/18/20 23 04/18/2023 CBC W/AUT O DIFFE RENTI AL note SEE NOTE Order ing Provi kathia: Aniyah wyman MD Not Available [address] , [place], [address], 04/18/2023 10:39:52 04/18/20 23 04/18/2023 CBC W/AUT O DIFFE RENTI AL white blood cell 6.1 10e3/ uL 4.5-13 .0 normal Not Available [address], [place], [address], 04/18/2023 10:39:52 04/18/20 23 04/18/2023 CBC W/AUT O DIFFE RENTI AL red blood cell 3.34 10e6/ uL 3.80-5 .10 low Not Available [address], [place], [address], 04/18/2023 10:39:52 04/18/20 23 04/18/2023 CBC W/AUT O DIFFE RENTI AL hemoglobin 11.2 g/dL 11.5-1 5.3 low Not Available [address], [place], [address], 04/18/2023 10:39:52 04/18/20 23 04/18/2023 CBC W/AUT O DIFFE RENTI AL hematocrit 30.9 % 34.0-4 6.0 low Not Available [address], [place], [address], 04/18/2023 10:39:52 04/18/20 23 04/18/2023 CBC W/AUT O DIFFE RENTI AL mean cell volume 93 fL 78.0-9 8.0 normal Not Available [address], [place], [address], 04/18/2023 10:39:52 04/18/20 23 04/18/2023 CBC W/AUT O DIFFE RENTI AL mean cell HGB 33.5 pg 25.0-3 5.0 normal Not Available [address], [place], [address], 04/18/2023 10:39:52 04/18/20 23 04/18/2023 CBC W/AUT O DIFFE RENTI AL mean cell HGB concentratio n 36.2 g/dL 31.0-3 6.0 high Not Available [address] , [place], [address], 04/18/2023 10:39:52 04/18/20 23 04/18/2023 CBC W/AUT O DIFFE RENTI AL red cell distribution width 13.3 % 11.0-1 5.0 normal Not Available [address] , [place], [address], 04/18/2023 10:39:52 04/18/20 23 04/18/2023 CBC W/AUT O DIFFE RENTI AL platelet count 255 10e3/ uL 150-40 0 normal Not Available [address], [place], [address], 04/18/2023 10:39:52 04/18/20 23 04/18/2023 CBC W/AUT O DIFFE RENTI AL immature granulocyte % 0 0-1 normal Not Available [address] , [place], [address], 04/18/2023 10:39:52 04/18/20 23 04/18/2023 CBC W/AUT O DIFFE RENTI AL neutrophil % 71 % 35-75 normal Not Available [address] , [place], [address], 04/18/2023 10:39:52 04/18/20 23 04/18/2023 CBC W/AUT O DIFFE RENTI AL lymphocyte % 18 % 10-50 normal Not Available [address] , [place], [address], 04/18/2023 10:39:52 04/18/20 23 04/18/2023 CBC W/AUT O DIFFE RENTI AL monocyte % 9 % 0-15 normal Not Available [address] , [place], [address], 04/18/2023 10:39:52 04/18/20 23 04/18/2023 CBC W/AUT O DIFFE RENTI AL eosinophil % 1 % 0-5 normal Not Available [address] , [place], [address], 04/18/2023 10:39:52 04/18/20 23 04/18/2023 CBC W/AUT O DIFFE RENTI AL basophil % 1 % 0-5 normal Not Available [address] , [place], [address], 04/18/2023 10:39:52 04/18/20 23 04/18/2023 CBC W/AUT O DIFFE RENTI AL immature granulocyte # 0.02 x1000 /uL 0-0.05 normal Not Available [address] , [place], [address], 04/18/2023 10:39:52 04/18/20 23 04/18/2023 CBC W/AUT O DIFFE RENTI AL neutrophil # 4.34 x1000 /uL 1.50-8 .00 normal Not Available [address], [place], [address], 04/18/2023 10:39:52 04/18/20 23 04/18/2023 CBC W/AUT O DIFFE RENTI AL lymphocyte # 1.11 x1000 /uL 1.20-5 .20 low Not Available [address], [place], [address], 04/18/2023 10:39:52 04/18/20 23 04/18/2023 CBC W/AUT O DIFFE RENTI AL monocyte # 0.53 x1000 /uL 0.40-0 .90 normal Not Available [address] , [place], [address], 04/18/2023 10:39:52 04/18/20 23 04/18/2023 CBC W/AUT O DIFFE RENTI AL eosinophil # 0.07 x1000 /uL 0.00-0 .50 normal Not Available [address] , [place], [address], 04/18/2023 10:39:52 04/18/20 23 04/18/2023 CBC W/AUT O DIFFE CHAPO AL basophil # 0.03 x1000 /uL 0.00-0 .30 normal Not Available [address] , [place], [address], 04/18/2023 10:39:52 04/18/20 23 04/18/2023 CBC W/AUT O DIFFE RENJENNIFER AL NRBC automated 0.0 /100_ WBC Not Available [address] , [place], [address], 04/18/2023 10:39:52 04/18/20 23 04/18/2023 CBC W/AUT O DIFFE RENTI AL performing lab SEE NOTE - [address] [facility] [address] Not Available [address] , [place], [address], 04/18/2023 10:39:52 04/18/20 23 04/18/2023 COMP METAB OLIC PANEL note SEE NOTE Order ing Provi kathia: Aniyah wyman MD Not Available [address] , [place], [address], 04/18/2023 11:15:30 04/18/20 23 04/18/2023 COMP METAB OLIC PANEL sodium 121 mmol/ L 136-14 5 low Not Available [address], [place], [address], 04/18/2023 11:15:30 04/18/20 23 04/18/2023 COMP METAB OLIC PANEL potassium 4.5 mmol/ L 3.5-5. 1 normal Not Available [address], [place], [address], 04/18/2023 11:15:30 04/18/20 23 04/18/2023 COMP METAB OLIC PANEL chloride 90 mmol/ L 98-107 low Not Available [address], [place], [address], 04/18/2023 11:15:30 04/18/20 23 04/18/2023 COMP METAB OLIC PANEL carbon dioxide 24 mmol/ L 24-33 normal Not Available [address] [address], [place], [address], 04/18/2023 11:15:30 04/18/20 23 04/18/2023 COMP METAB OLIC PANEL anion gap 11.5 mmol/ L 10-20 normal Not Available [address] [address], [place], [address], 04/18/2023 11:15:30 04/18/20 23 04/18/2023 COMP METAB OLIC PANEL glucose 100 mg/dL 70-99 high Not Available [address] [address], [place], [address], 04/18/2023 11:15:30 04/18/20 23 04/18/2023 COMP METAB OLIC PANEL blood urea nitrogen 11 mg/dL 7-18 normal Not Available [address], [place], [address], 04/18/2023 11:15:30 11/20/04/18/2023 COMP METAB OLIC PANEL creatinine 0.62 mg/dL 0.55-1 .02 normal Not Available [address] , [place], [address], 04/18/2023 11:15:30 04/18/20 23 04/18/2023 COMP METAB [...] GFR is advoc ated by the [facility] [employer] ation to be used [...] care of your patie nt. Not Available [place] [address], [place], [address], 04/18/2023 11:15:30 04/18/20 23 04/18/2023 COMP METAB OLIC PANEL BUN/creatini ne ratio 17 12-20 normal Not Available [address] , [place], [address], 04/18/2023 11:15:30 04/18/20 23 04/18/2023 COMP METAB OLIC PANEL total protein 6.9 g/dL 6.4-8. 2 normal Not Available [address] , [place], [address], 04/18/2023 11:15:30 04/18/20 23 04/18/2023 COMP METAB OLIC PANEL albumin 3.5 g/dL 3.4-5. 0 normal Not Available [address] , [place], [address], 04/18/2023 11:15:30 04/18/20 23 04/18/2023 COMP METAB OLIC PANEL globulin 3.4 g/dL 1.5-4. 0 normal Not Available [address], [place], [address], 04/18/2023 11:15:30 04/18/20 23 04/18/2023 COMP METAB OLIC PANEL albumin/glob ulin ratio 1.0 0.5-2. 0 normal Not Available [address], [place], [address], 04/18/2023 11:15:30 04/18/20 23 04/18/2023 COMP METAB OLIC PANEL calcium 8.3 mg/dL 8.5-10 .1 low Not Available [address], [place], [address], 04/18/2023 11:15:30 04/18/20 23 04/18/2023 COMP METAB OLIC PANEL osmolality serum calculated 242 mOsm/ kg 272-28 8 low Not Available [address] , [place], [address], 04/18/2023 11:15:30 04/18/20 23 04/18/2023 COMP METAB OLIC PANEL bilirubin total 0.2 mg/dL 0.2-1. 0 normal Use of this assay is not recom ashley d for patie nts under going treat ment with Eltro mbopa g due to the poten tial for false ly eleva zeyad resul ts. Not Available [address] , [place], [address], 04/18/2023 11:15:30 04/18/20 23 04/18/2023 COMP METAB OLIC PANEL SGOT/AST 18 U/L 15-37 normal Not Available [address] , [place], [address], 04/18/2023 11:15:30 04/18/20 23 04/18/2023 COMP METAB OLIC PANEL SGPT/ALT 26 U/L 14-59 normal Not Available [address] , [place], [address], 04/18/2023 11:15:30 04/18/20 23 04/18/2023 COMP METAB OLIC PANEL alkaline phosphatase total 108 U/L 46-116 normal Not Available [address] , [place], [address], 04/18/2023 11:15:30 04/18/20 23 04/18/2023 COMP METAB OLIC PANEL performing lab SEE NOTE - [address] [facility] [address] Not Available [address] , [place], [address], 04/18/2023 11:15:30 04/18/20 23 04/18/2023 LORRIE TIN note See Note Order ing Provi kathia: Aniyah wyman MD Not Available [address] , [place], [address], 04/18/2023 11:15:32 04/18/20 23 04/18/2023 LORRIE TIN ferritin 75 NG/mL 8-252 normal Not Available [address] , [place], [address], 04/18/2023 11:15:32 04/18/20 23 04/18/2023 LORRIE TIN performing lab see note - [address] [facility] [address] Not Available [address] , [place], [address], 04/18/2023 11:15:32 04/18/20 23 04/18/2023 FE W/TOT AL IRON KATHLEEN NG CAP note See Note Order ing Provi kathia: Aniyah wyman MD Not Available [address] , [place], [address], 04/18/2023 11:27:19 04/18/20 23 04/18/2023 FE W/TOT AL IRON KATHLEEN NG CAP iron 68 ug/dL 50-170 normal Not Available [address], [place], [address], 04/18/2023 11:27:19 04/18/20 23 04/18/2023 FE W/TOT AL IRON KATHLEEN NG CAP total iron binding capacity 307 ug/dL 260-44 5 normal Not Available [address], [place], [address], 04/18/2023 11:27:19 04/18/20 23 04/18/2023 FE W/TOT AL IRON KATHLEEN NG CAP iron saturation 22 % 20-50 normal Not Available [address] , [place], [address], 04/18/2023 11:27:19 04/18/20 23 04/18/2023 FE W/TOT AL IRON KATHLEEN NG CAP performing lab see note ML - [facility] [address] [facility] [address] Not Available [address] , [place], [address], 04/18/2023 11:27:19 10/25/19 24 10/25/2023 CBC W/AUT O DIFFE RENTI AL note SEE NOTE Order ing Provi kathia: Frank ling APRN Not Available [address], [place], [address], 10/25/2023 15:43:19 10/25/19 24 10/25/2023 CBC W/AUT O DIFFE RENTI AL white blood cell 5.7 10e3/ uL 4.5-13 .0 normal Not Available [address], [place], [address], 10/25/2023 15:43:19 10/25/19 24 10/25/2023 CBC W/AUT O DIFFE RENTI AL red blood cell 2.98 10e6/ uL 3.80-5 .10 low Not Available [address], [place], [address], 10/25/2023 15:43:19 10/25/19 24 10/25/2023 CBC W/AUT O DIFFE RENTI AL hemoglobin 9.9 g/dL 11.5-1 5.3 low Not Available [address], [place], [address], 10/25/2023 15:43:19 10/25/19 24 10/25/2023 CBC W/AUT O DIFFE RENTI AL hematocrit 30.2 % 34.0-4 6.0 low Not Available [address], [place], [address], 10/25/2023 15:43:19 10/25/19 24 10/25/2023 CBC W/AUT O DIFFE RENTI AL mean cell volume 101 fL 78.0-9 8.0 high Not Available [address], [place], [address], 10/25/2023 15:43:19 10/25/19 24 10/25/2023 CBC W/AUT O DIFFE RENTI AL mean cell HGB 33.2 pg 25.0-3 5.0 normal Not Available [address], [place], [address], 10/25/2023 15:43:19 10/25/19 24 10/25/2023 CBC W/AUT O DIFFE RENTI AL mean cell HGB concentratio n 32.8 g/dL 31.0-3 6.0 normal Not Available [address], [place], [address], 10/25/2023 15:43:19 10/25/19 24 10/25/2023 CBC W/AUT O DIFFE RENTI AL red cell distribution width 12.7 % 11.0-1 5.0 normal Not Available [place] [address], [place], [address], 10/25/2023 15:43:19 10/25/19 24 10/25/2023 CBC W/AUT O DIFFE RENTI AL platelet count 200 10e3/ uL 150-40 0 normal Not Available [address], [place], [address], 10/25/2023 15:43:19 10/25/19 24 10/25/2023 CBC W/AUT O DIFFE RENTI AL immature granulocyte % 0 0-1 normal Not Available [address] , [place], [address], 10/25/2023 15:43:19 10/25/19 24 10/25/2023 CBC W/AUT O DIFFE RENTI AL neutrophil % 66 % 35-75 normal Not Available [address] , [place], [address], 10/25/2023 15:43:19 10/25/19 24 10/25/2023 CBC W/AUT O DIFFE RENTI AL lymphocyte % 24 % 10-50 normal Not Available [address] , [place], [address], 10/25/2023 15:43:19 10/25/19 24 10/25/2023 CBC W/AUT O DIFFE RENTI AL monocyte % 8 % 0-15 normal Not Available [address], [place], [address], 10/25/2023 15:43:19 10/25/19 24 10/25/2023 CBC W/AUT O DIFFE RENTI AL eosinophil % 2 % 0-5 normal Not Available [address] , [place], [address], 10/25/2023 15:43:19 10/25/19 24 10/25/2023 CBC W/AUT O DIFFE RENTI AL basophil % 1 % 0-5 normal Not Available [address] , [place], [address], 10/25/2023 15:43:19 10/25/19 24 10/25/2023 CBC W/AUT O DIFFE RENTI AL immature granulocyte # 0.02 x1000 /uL 0-0.05 normal Not Available [address] , [place], [address], 10/25/2023 15:43:19 10/25/19 24 10/25/2023 CBC W/AUT O DIFFE RENTI AL neutrophil # 3.75 x1000 /uL 1.50-8 .00 normal Not Available [address] , [place], [address], 10/25/2023 15:43:19 10/25/19 24 10/25/2023 CBC W/AUT O DIFFE RENTI AL lymphocyte # 1.34 x1000 /uL 1.20-5 .20 normal Not Available [address], [place], [address], 10/25/2023 15:43:19 10/25/19 24 10/25/2023 CBC W/AUT O DIFFE RENTI AL monocyte # 0.47 x1000 /uL 0.40-0 .90 normal Not Available [address], [place], [address], 10/25/2023 15:43:19 10/25/19 24 10/25/2023 CBC W/AUT O DIFFE RENTI AL eosinophil # 0.09 x1000 /uL 0.00-0 .50 normal Not Available [address], [place], [address], 10/25/2023 15:43:19 10/25/19 24 10/25/2023 CBC W/AUT O DIFFE RENTI AL basophil # 0.03 x1000 /uL 0.00-0 .30 normal Not Available [address], [place], [address], 10/25/2023 15:43:19 10/25/19 24 10/25/2023 CBC W/AUT O DIFFE RENTI AL NRBC automated 0.0 /100_ WBC Not Available [address] [address], [place], [address], 10/25/2023 15:43:19 10/25/19 24 10/25/2023 CBC W/AUT O DIFFE CHAPO AL performing lab SEE NOTE - [facility] [place] [id number] [facility] [address] 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 1 normal Not Available [address] , [place], [address], 10/25/2023 15:51:39 10/25/19 24 10/25/2023 COMP METAB OLIC PANEL chloride 109 mmol/ L 98-107 high Not Available [address], [place], [address], 10/25/2023 15:51:39 10/25/19 24 10/25/2023 COMP METAB OLIC PANEL carbon dioxide 25 mmol/ L 24-33 normal Not Available [address] , [place], [address], 10/25/2023 15:51:39 10/25/19 24 10/25/2023 COMP METAB OLIC PANEL anion gap 11.9 mmol/ L 10-20 normal Not Available [address] , [place], [address], 10/25/2023 15:51:39 10/25/19 24 10/25/2023 COMP METAB OLIC PANEL glucose 148 mg/dL 70-99 high Not Available [address] [place], [address], 10/25/2023 15:51:39 10/25/19 24 10/25/2023 COMP METAB OLIC PANEL blood urea nitrogen 15 mg/dL 7-18 normal Not Available [address] , [place], [address], 10/25/2023 15:51:39 10/25/19 24 10/25/2023 COMP METAB OLIC PANEL creatinine 0.86 mg/dL 0.55-1 .02 normal Not Available [address] , [place], [address], 10/25/2023 15:51:39 10/25/19 24 10/25/2023 COMP METAB OLIC PANEL GFR (estimated) 78 mL/mi n >60 normal [IM JESSEINA NT]: The 2020 CKD-E PI equat ion [...] nt value , a 2009 CKD-E PI calcu lator is easil y [...] care of your patie nt. Not Available [address] , [place], [address], 10/25/2023 15:51:39 10/25/19 24 10/25/2023 COMP METAB OLIC PANEL BUN/creatini ne ratio 17 12-20 normal Not Available [address] , [place], [address], 10/25/2023 15:51:39 10/25/19 24 10/25/2023 COMP METAB OLIC PANEL total protein 6.3 g/dL 6.4-8. 2 low Not Available [address] , [place], [address], 10/25/2023 15:51:39 10/25/19 24 10/25/2023 COMP METAB OLIC PANEL albumin 3.2 g/dL 3.4-5. 0 low Not Available [address] [place], [address], 10/25/2023 15:51:39 10/25/19 24 10/25/2023 COMP METAB OLIC PANEL globulin 3.1 g/dL 1.5-4. 0 normal Not Available [address] [place], [address], 10/25/2023 15:51:39 10/25/19 24 10/25/2023 COMP METAB OLIC PANEL albumin/glob ulin ratio 1.0 0.5-2. 0 normal Not Available [address] [place], [address], 10/25/2023 15:51:39 10/25/19 24 10/25/2023 COMP METAB OLIC PANEL calcium 8.2 mg/dL 8.5-10 .1 low Not Available [address] [place], [address], 10/25/2023 15:51:39 10/25/19 24 10/25/2023 COMP METAB OLIC PANEL osmolality serum calculated 286 mOsm/ kg 272-28 8 normal Not Available [address] , [place], [address], 10/25/2023 15:51:39 10/25/19 24 10/25/2023 COMP METAB OLIC PANEL bilirubin total 0.2 mg/dL 0.2-1. 0 normal Use of this assay is not recom ashley d for patie nts under going treat ment with Eltro mbopa g due to the poten tial for false ly eleva zeyad resul ts. Not Available [address] [place], [address], 10/25/2023 15:51:39 10/25/19 24 10/25/2023 COMP METAB OLIC PANEL SGOT/AST 9 U/L 15-37 low Not Available [address] [place], [address], 10/25/2023 15:51:39 10/25/19 24 10/25/2023 COMP METAB OLIC PANEL SGPT/ALT 26 U/L 14-59 normal Not Available [address] [place], [address], 10/25/2023 15:51:39 10/25/19 24 10/25/2023 COMP METAB OLIC PANEL alkaline phosphatase total 102 U/L 46-116 normal Not Available [address] [place] Garcia, [place], [address], 10/25/2023 15:51:39 10/25/19 24 10/25/2023 COMP METAB OLIC PANEL performing lab SEE NOTE ML - [facility] [address] [facility] [address] [place] [address] Not Available [address] , [place], [address], 10/25/2023 15:51:39 03/15/2003/15/2024 GLYCO HEMOG LOBIN (HGB A1C) note See Note Order ing Provi kathia: Frank ling APRN Not Available [address] , [place], [address], 03/15/2024 12:26:52 03/15/2003/15/2024 GLYCO HEMOG LOBIN (HGB A1C) glycohemoglo bin (HGB A1C) 5.6 % 4.5-6. 2 normal Predi abete s: 5.7 - 6.4 Diabe kristi: >6.4 Glyce nalini contr ol for adult s with diabe kristi: <7.0 Not Available [address] [place], [place], [address], 03/15/2024 12:26:52 03/15/2003/15/2024 GLYCO HEMOG LOBIN (HGB A1C) performing lab see note ML - [facility] [address] [place] [address] Not Available [address] , [place], [address], 03/15/2024 12:26:52 04/23/2004/23/2024 CBC W/AUT O DIFFE RENTI AL note SEE NOTE Order ing Provi kathia: Frank homa ling APRN Not Available [address] [place], [place], [address], 04/23/2024 11:55:22 04/23/20 24 04/23/2024 CBC W/AUT O DIFFE RENTI AL white blood cell 6.4 10e3/ uL 4.5-13 .0 normal Not Available [address] [place] Garcia, [place], [address], 04/23/2024 11:55:22 04/23/2004/23/2024 CBC W/AUT O DIFFE RENTI AL red blood cell 3.49 10e6/ uL 3.80-5 .10 low Not Available [address] [place] Garcia, [place], [address], 04/23/2024 11:55:22 04/23/20 24 04/23/2024 CBC W/AUT O DIFFE RENTI AL hemoglobin 11.5 g/dL 11.5-1 5.3 normal Not Available [place] [address], [place], [address], 04/23/2024 11:55:22 04/23/20 24 04/23/2024 CBC W/AUT O DIFFE RENTI AL hematocrit 33.7 % 34.0-4 6.0 low Not Available [address] Danyell Garcia, [place], [address], 04/23/2024 11:55:22 04/23/20 24 04/23/2024 CBC W/AUT O DIFFE RENTI AL mean cell volume 97 fL 78.0-9 8.0 normal Not Available [address] Danyell Garcia, [place], [address], 04/23/2024 11:55:22 04/23/20 24 04/23/2024 CBC W/AUT O DIFFE RENTI AL mean cell HGB 33.0 pg 25.0-3 5.0 normal Not Available [address] Danyell Garcia, [place], [address], 04/23/2024 11:55:22 04/23/20 24 04/23/2024 CBC W/AUT O DIFFE RENTI AL mean cell HGB concentratio n 34.1 g/dL 31.0-3 6.0 normal Not Available [address] , [place], [address], 04/23/2024 11:55:22 04/23/20 24 04/23/2024 CBC W/AUT O DIFFE RENTI AL red cell distribution width 13.9 % 11.0-1 5.0 normal Not Available [address] , [place], [address], 04/23/2024 11:55:22 04/23/20 24 04/23/2024 CBC W/AUT O DIFFE RENTI AL platelet count 205 10e3/ uL 150-40 0 normal Not Available [address] Danyell Garcia, [place], [address], 04/23/2024 11:55:22 04/23/20 24 04/23/2024 CBC W/AUT O DIFFE RENTI AL immature granulocyte % 0 0-1 normal Not Available [address] Danyell Garcia, [place], [address], 04/23/2024 11:55:22 04/23/20 24 04/23/2024 CBC W/AUT O DIFFE RENTI AL neutrophil % 63 % 35-75 normal Not Available [address] , [place], [address], 04/23/2024 11:55:22 04/23/20 24 04/23/2024 CBC W/AUT O DIFFE RENTI AL lymphocyte % 29 % 10-50 normal Not Available [address] , [place], [address], 04/23/2024 11:55:22 04/23/20 24 04/23/2024 CBC W/AUT O DIFFE RENTI AL monocyte % 6 % 0-15 normal Not Available [address] , [place], [address], 04/23/2024 11:55:22 04/23/20 24 04/23/2024 CBC W/AUT O DIFFE RENTI AL eosinophil % 2 % 0-5 normal Not Available [address] , [place], [address], 04/23/2024 11:55:22 04/23/20 24 04/23/2024 CBC W/AUT O DIFFE RENTI AL basophil % 1 % 0-5 normal Not Available [address] , [place], [address], 04/23/2024 11:55:22 04/23/20 24 04/23/2024 CBC W/AUT O DIFFE RENTI AL immature granulocyte # 0.01 x1000 /uL 0-0.05 normal Not Available [address] , [place], [address], 04/23/2024 11:55:22 04/23/20 24 04/23/2024 CBC W/AUT O DIFFE RENTI AL neutrophil # 4.01 x1000 /uL 1.50-8 .00 normal Not Available [address] Danyell Garcia, [place], [address], 04/23/2024 11:55:22 04/23/20 24 04/23/2024 CBC W/AUT O DIFFE RENTI AL lymphocyte # 1.81 x1000 /uL 1.20-5 .20 normal Not Available [address] , [place], [address], 04/23/2024 11:55:22 04/23/20 24 04/23/2024 CBC W/AUT O DIFFE RENTI AL monocyte # 0.37 x1000 /uL 0.40-0 .90 low Not Available [address] , [place], [address], 04/23/2024 11:55:22 04/23/20 24 04/23/2024 CBC W/AUT O DIFFE RENTI AL eosinophil # 0.13 x1000 /uL 0.00-0 .50 normal Not Available [address] , [place], [address], 04/23/2024 11:55:22 04/23/20 24 04/23/2024 CBC W/AUT O DIFFE RENTI AL basophil # 0.03 x1000 /uL 0.00-0 .30 normal Not Available [address] , [place], [address], 04/23/2024 11:55:22 04/23/20 24 04/23/2024 CBC W/AUT O DIFFE RENTI AL NRBC automated 0.0 /100_ WBC Not Available [address] , [place], [address], 04/23/2024 11:55:22 04/23/20 24 04/23/2024 CBC W/AUT O DIFFE RENTI AL performing lab SEE NOTE - [facility] R [address] [place] [address] [facility] [address] Not Available [address] , [place], [address], 04/23/2024 11:55:22 04/23/20 24 04/23/2024 COMP METAB OLIC PANEL note SEE NOTE Order ing Provi kathia: Frank ling APRN Not Available [address] , [place], [address], 04/23/2024 12:16:30 04/23/20 24 04/23/2024 COMP METAB OLIC PANEL sodium 140 mmol/ L 136-14 5 normal Not Available [address] , [place], [address], 04/23/2024 12:16:30 04/23/20 24 04/23/2024 COMP METAB OLIC PANEL potassium 4.0 mmol/ L 3.5-5. 1 normal Not Available [address] , [place], [address], 04/23/2024 12:16:30 04/23/20 24 04/23/2024 COMP METAB OLIC PANEL chloride 106 mmol/ L 98-107 normal Not Available [address] D[place] Garcia, [place], [address], 04/23/2024 12:16:30 04/23/20 24 04/23/2024 COMP METAB OLIC PANEL carbon dioxide 25 mmol/ L 24-33 normal Not Available [address] Danyell Garcia, [place], [address], 04/23/2024 12:16:30 04/23/20 24 04/23/2024 COMP METAB OLIC PANEL anion gap 13.0 mmol/ L 10-20 normal Not Available [address] [place], [address], 04/23/2024 12:16:30 04/23/20 24 04/23/2024 COMP METAB OLIC PANEL glucose 94 mg/dL 70-99 normal Not Available [address] [place], [address], 04/23/2024 12:16:30 04/23/20 24 04/23/2024 COMP METAB OLIC PANEL blood urea nitrogen 14 mg/dL 7-18 normal Not Available [address] [place], [address], 04/23/2024 12:16:30 04/23/20 24 04/23/2024 COMP METAB OLIC PANEL creatinine 0.83 mg/dL 0.55-1 .02 normal Not Available [address] [place], [address], 04/23/2024 12:16:30 04/23/20 24 04/23/2024 COMP METAB [...] care of your patie nt. Not Available [address] , [place], [address], 04/23/2024 12:16:30 04/23/20 24 04/23/2024 COMP METAB OLIC PANEL BUN/creatini ne ratio 16 12-20 normal Not Available [address] , [place], [address], 04/23/2024 12:16:30 04/23/20 24 04/23/2024 COMP METAB OLIC PANEL total protein 6.7 g/dL 6.4-8. 2 normal Not Available [address] , [place], [address], 04/23/2024 12:16:30 04/23/20 24 04/23/2024 COMP METAB OLIC PANEL albumin 3.5 g/dL 3.4-5. 0 normal Not Available [address] , [place], [address], 04/23/2024 12:16:30 04/23/20 24 04/23/2024 COMP METAB OLIC PANEL globulin 3.2 g/dL 1.5-4. 0 normal Not Available [address] , [place], [address], 04/23/2024 12:16:30 04/23/20 24 04/23/2024 COMP METAB OLIC PANEL albumin/glob ulin ratio 1.1 0.5-2. 0 normal Not Available [address] , [place], [address], 04/23/2024 12:16:30 04/23/20 24 04/23/2024 COMP METAB OLIC PANEL calcium 8.9 mg/dL 8.5-10 .1 normal Not Available [address] , [place], [address], 04/23/2024 12:16:30 04/23/20 24 04/23/2024 COMP METAB OLIC PANEL osmolality serum calculated 279 mOsm/ kg 272-28 8 normal Not Available [address] , [place], [address], 04/23/2024 12:16:30 04/23/20 24 04/23/2024 COMP METAB OLIC PANEL bilirubin total 0.2 mg/dL 0.2-1. 0 normal Use of this assay is not recom ashley d for patie nts under going treat ment with Eltro mbopa g due to the poten tial for false ly eleva zeyad resul ts. Not Available [address] , [place], [address], 04/23/2024 12:16:30 04/23/20 24 04/23/2024 COMP METAB OLIC PANEL SGOT/AST 19 U/L 15-37 normal Not Available [address] , [place], [address], 04/23/2024 12:16:30 04/23/20 24 04/23/2024 COMP METAB OLIC PANEL SGPT/ALT 28 U/L 14-59 normal Not Available [address] , [place], [address], 04/23/2024 12:16:30 04/23/20 24 04/23/2024 COMP METAB OLIC PANEL alkaline phosphatase total 121 U/L 46-116 high Not Available [address] [place], [address], 04/23/2024 12:16:30 04/23/20 24 04/23/2024 COMP METAB OLIC PANEL performing lab SEE NOTE - [facility] R [address] [facility] [address] Not Available [address] D[place] Garcia, [place], [address], 04/23/2024 12:16:30 07/17/19 25 07/17/2024 COMP METAB OLIC PANEL note SEE NOTE Order ing Provi kathia: Koreyreynaldo homa ling [employer]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 1 normal Not Available [address] [place] Garcia, [place], [address], 07/17/2024 08:56:08 07/17/19 25 07/17/2024 COMP METAB OLIC PANEL chloride 105 mmol/ L 98-107 normal Not Available [address] [place] Garcia, [place], [address], 07/17/2024 08:56:08 07/17/19 25 07/17/2024 COMP METAB OLIC PANEL carbon dioxide 24 mmol/ L 24-33 normal Not Available [address] [place] Garcia, [place], [address], 07/17/2024 08:56:08 07/17/19 25 07/17/2024 COMP METAB OLIC PANEL anion gap 16.0 mmol/ L 10-20 normal Not Available [address] [place] Garcia, [place], [address], 07/17/2024 08:56:08 07/17/19 25 07/17/2024 COMP METAB OLIC PANEL glucose 96 mg/dL 70-99 normal Not Available [address] [place], [address], 07/17/2024 08:56:08 07/17/19 25 07/17/2024 COMP METAB OLIC PANEL blood urea nitrogen 21 mg/dL 7-18 high Not Available [address] [place], [address], 07/17/2024 08:56:08 07/17/19 25 07/17/2024 COMP METAB OLIC PANEL creatinine 0.88 mg/dL 0.55-1 .02 normal Not Available [address] [place], [address], 07/17/2024 08:56:08 07/17/1907/17/2024 COMP METAB OLIC PANEL GFR (estimated) 75 [...] care of your patie nt. Not Available [address] , [place], [address], 07/17/2024 08:56:08 07/17/19 25 07/17/2024 COMP METAB OLIC PANEL BUN/creatini ne ratio 23 12-20 high Not Available [address] , [place], [address], 07/17/2024 08:56:08 07/17/19 25 07/17/2024 COMP METAB OLIC PANEL total protein 6.8 g/dL 6.4-8. 2 normal Not Available [address] , [place], [address], 07/17/2024 08:56:08 07/17/19 25 07/17/2024 COMP METAB OLIC PANEL albumin 3.5 g/dL 3.4-5. 0 normal Not Available [address] [place] Garcia, [place], [address], 07/17/2024 08:56:08 07/17/19 25 07/17/2024 COMP METAB OLIC PANEL globulin 3.3 g/dL 1.5-4. 0 normal Not Available [address] , [place], [address], 07/17/2024 08:56:08 07/17/19 25 07/17/2024 COMP METAB OLIC PANEL albumin/glob ulin ratio 1.1 0.5-2. 0 normal Not Available [address] , [place], [address], 07/17/2024 08:56:08 07/17/19 25 07/17/2024 COMP METAB OLIC PANEL calcium 9.1 mg/dL 8.5-10 .1 normal Not Available [address] [place], [address], 07/17/2024 08:56:08 07/17/19 25 07/17/2024 COMP METAB OLIC PANEL osmolality serum calculated 283 mOsm/ kg 272-28 8 normal Not Available [address] , [place], [address], 07/17/2024 08:56:08 07/17/19 25 07/17/2024 COMP METAB OLIC PANEL bilirubin total 0.2 mg/dL 0.2-1. 0 normal Use of this assay is not recom ashley d for patie nts under going treat ment with Eltro mbopa g due to the poten tial for false ly eleva zeyad resul ts. Not Available [address] , [place], [address], 07/17/2024 08:56:08 07/17/19 25 07/17/2024 COMP METAB OLIC PANEL SGOT/AST 20 U/L 15-37 normal Not Available [address] , [place], [address], 07/17/2024 08:56:08 07/17/19 25 07/17/2024 COMP METAB OLIC PANEL SGPT/ALT 33 U/L 14-59 normal Not Available [address] , [place], [address], 07/17/2024 08:56:08 07/17/19 25 07/17/2024 COMP METAB OLIC PANEL alkaline phosphatase total 118 U/L 46-116 high Not Available [address] , [place], [address], 07/17/2024 08:56:08 07/17/19 25 07/17/2024 COMP METAB OLIC PANEL performing lab SEE NOTE ML - [facility] [address] [facility] [place] [place] [address] Not Available [address] , [place], [address], 07/17/2024 08:56:08 03/29/20 23 03/29/2023 CT, chest , w/ contr ast Psychiatrica Ce Name: CAMILA TOVAR [address] [place], [place] [address]a [facility] Phys: Katerina GOOD,Nal[place] [address] : 1965 Age: 57 Sex: F Acct: [id number] Loc: G.CT PHONE #: [phone] Exam Date: 2022 Status : REG CLI FAX #: Rad# [id number] Unit# [id number] Admit Date: 2022 EXAMS: CPT CODE: [id number] CT CHEST W/CONT RAST [address]25 CT CHEST WITH CONTRA ST, 2022: CLINIC AL HISTOR Y: Restag ing of squamo us cell carcin quinn of the right lung COMPAR [place]: CT chest, 11/02/19 23, 07/08/19 23, and 022 and PET/CT 022 TECHNI QUE: Multip le axial images throug h the chest were obtain ed follow ing the admini strati on of intrav enous contra st. This data was used to perfor m dubon l and jenaro al recons tructi ons. GE's Auto mA automa zeyad exposu re contro l was utiliz ed for radiat ion dose reduct ion. FINDIN GS: There is a 1.1 x 1.3 cm lymph node to the right of the proxim al thorac ic esopha abel. This is not signif icantl y change d from 022 and was not previo usly hyperm etabol [...] right- sided volume loss, unchan ged from ry. There is a minima l right [...] e PAGE 1 Signed Report (PAMELA NUED) [facility] Name: CAMILA TOVAR IC[address]jit [address] Phys: Katerina GOOD,[place] [address] : 1965 Age: 57 Sex: F Acct: [id number] Loc: G.CT PHONE #: Exam Date: 2022 Status : REG CLI FAX #: Rad# [id number] Unit# [id number] Admit Date: 2022 EXAMS: CPT CODE: [id number] CT CHEST W/CONT RAST 71708 2. Minima l right pleura l effusi [...] ically mentio lyndsey in the impres marilyn. Electr onical [...] GARVEY Consul ting Provid er: ALBERTO STOCKTON [email or web address] [facility] [address] , [place], [address], 06/22/2023 15:42:42 04/18/20 23 04/18/2023 - ankle AP lat w/1 obl lt [facility] Name: CAMILA TOVAR [facility] [address] Phys: Katerina GOOD,Estelle [facility] my Unashreyas [facility] [address] : 1965 Age: 57 Sex: F Acct: [id number] Loc: G.RAD PHONE #: Exam Date: 2022 Status : REG CLI FAX #: [phone] Rad# [id number] Unit# [id number] Admit Date: 2022 EXAMS: CPT CODE: [id number] ANKLE [place] LAT W/[place] [address] 3 VIEWS LEFT ANKLE, 2022: CLINIC AL [...] relaye d to Dr. Myriam Borges via [place] text on 2022 at 11:35 AM Electr onical ly Signed by OLINDA CHATMAN MD on 2022 at 1134 Report ed and signed by: OLINDA CHATMAN MD CC: Low Borges MD; Kath albrecht Dictat ed Date/T sue: 2022 (7006) Techno logist : KYLIE DUMONT S, R.T. (R) Transc ribed Date/T sue: 2022 (8474) Transc riptio nist: DR.HAG ARUN german Signat ure Date/T seu: 2022 (1134) Printe d Date/T sue: 2022 (1137) BATCH NO: N/A PAGE 1 Signed Report CC'ed Logic: Orderi ng Provid er: DEBRA GARVEY Attend ing Provid er: DEBRA GARVEY Referr ing Provid er: DEBRA GARVEY Consul ting Provid er: ALBERTO STOCKTON [email or web address] [address] [place], [address], 06/23/2023 11:56:03 11/21/19 24 11/21/2023 CT, chest , w/ contr ast [facility] Name: CAMILA TOVAR ICIA [facility] [address] Phys: [place] [address] : 1965 Age: 58 Sex: F Acct: [id number] Loc: G.CT PHONE #: Exam Date: 2023 Status : REG CLI FAX #: [phone] Rad# [id number] Unit# [id number] Admit Date: 2023 EXAMS: CPT CODE: [id number] CT CHEST W/CONT RAST [address] CLINIC AL INFORM ATION: Observ ation with [...] marilyn. PAGE 1 Signed Report (PAMELA NUED) [facility] Name: PULCAMILA HINKLE [place] [address] [address] Phys: Albino maxwell APR[place] [address] : 1965 Age: 58 Sex: F Acct: [id number] Loc: G.CT PHONE #: [phone] Exam Date: 2023 Status : REG CLI FAX #: Rad# [id number] Unit# [id number] Admit Date: 2023 EXAMS: CPT CODE: [id number] CT CHEST W/CONT RAST 62169 This report is genera zeyad using voice [...] Albrecht M.D. CC: Kath albrecht; Stevan maxwell APRN Dictat ed Date/T sue: 2023 (945) Techno logist : GRACE BELLAM Y Transc ribed Date/T sue: 2023 (46) Transc riptio nist: DR.HAR CELESTE Conroy onic Signat ure Date/T sue: 2023 (945) Printe d Date/T sue: 2023 (49) BATCH NO: N/A PAGE 2 Signed Report CC'ed Logic: Orderi ng Provid er: ALBINO Oscar Attend ing Provid er: ALBINO Oscar Referr ing Provid er: ALBINO Oscar Consul ting Provid er: ALBERTO conley [address] , [place], [address], 12/16/2023 16:01:38 07/17/19 25 07/17/2024 CT, chest , w/ contr ast 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 CC: Kath albrecht; Stevan maxwell T[employer] D[employer] MAKER TECHNICIAN Dictat ed Date/T sue: 2024 (1218) Techno logist : GRACE BELLAM Y Transc ribed Date/T sue: 2024 (1218) Transc riptio nist: DR.HAR CELESTE Conroy onic Signat ure Date/T sue: 2024 (1218) Printe d Date/T sue: 2024 (1220) BATCH NO: N/A PAGE 2 Signed Report CC'ed Logic: Orderi ng Provid er: ALBINO Oscar Attend ing Provid er: ALBINO Oscar Referr ing Provid er: ALBINO Oscar Consul ting Provid er: ALBERTO conley [address] , [place], [address], 07/18/2024 09:36:18 Result Notes None recorded. Problems Name Problem SNOMED Code Status Onset Date Resolution Date Notes Provider Name and Address Organization Details Recorded Time Squamous cell carcinoma of bronchus 043299953 Active Not Available [facility] [place] [facility] 3 12:19:04 Centriacin ar emphysema 15382931 Active Not Available [facility] 3 12:19:04 History of clinical finding in subject 346086641 Active Not Available [facility] 3 12:19:04 Knee pain Active Not Available [facility] 3 12:19:04 Swelling of knee joint 881169263 Active Not Available [facility] [place] [facility] 3 12:19:04 Plantar fascial fibromatos is 72879614 Active Not Available [facility] 3 12:19:04 Normocytic anemia 683052660 Active Not Available [facility] 3 12:19:04 Macrocytic anemia 21806411 Active Not Available [facility] 3 12:19:04 Hyponatrem ia 74516158 Active Not Available [facility] 3 12:19:04 Dupuytren' s contractur e of finger 847911149 Active Not Available [facility] 3 12:19:04 Atelectasi s 08380366 Active Not Available [facility] 3 12:19:04 Chronic obstructiv e pulmonary disease 24553309 Active Not Available [facility] 3 12:19:04 Major depression , single episode 08521858 Active Not Available [facility] 3 12:19:04 Nausea 144478260 Active Not Available [facility] 3 12:19:04 Squamous cell carcinoma of right lung 8924734890650 9102 Active Not Available [facility] 3 12:19:04 Acute exacerbati on of chronic obstructiv e pulmonary disease 735690204 Active Not Available [facility] 3 12:19:04 Diarrhea 14970423 Active Not Available [facility] [place] [facility] 3 12:19:04 Pain due to neoplastic disease 9997965878524 2 Active Not Available [facility] 3 12:19:04 Cubital tunnel syndrome Active Not Available [facility] 3 12:19:04 Device in situ 149366655 Active Not Available [facility] 3 12:19:04 Osteoarthr itis of knee 660364193 Active [facility] Available [facility] 3 12:19:04 Chronic hyponatrem ia 61519602 Active 2021 Not Available [facility] 3 12:19:04 Chronic pain due to malignant neoplastic disease 838168730 Active 2021 Not Available [facility] 3 12:19:04 Pulmonary emphysema 59222634 Active 2021 Not Available [facility] 3 12:19:04 Primary malignant neoplasm of lung 77316721 Active 2021 Not Available [facility] 3 12:19:04 Congestive heart failure 20317112 Active 2022 Not Available [facility] 3 12:19:04 Acute bronchitis 24165462 Active 2022 Not Available [facility] 3 12:19:04 Pleural effusion 80295006 Active 2022 Not Available [facility] 3 12:19:04 Continuous dependence on cigarette smoking 7748977267421 08 Active 2023 SHOLA MAY NP [address] [place] [address], [id number] , [facility] [place] 4 15:18:38 Pain of left ankle joint 7001184385047 9103 Active 2023 SHOLA MAY NP [address] [place] [address],[address], [address] , [facility] [place] 4 15:19:44 Problem Notes None recorded. Procedures Surgical History Date Name Laterality Status Provider Name and Address Organization Details Recorded Time hernia repair completed Not Available [facility] 08:18:48 hysterectomy completed Not Available [facility] 08:18:48 arthroscopy of knee completed Not Available [facility] 03/23/2022 08:18:48 Unlisted procedure stomach completed Not Available [facility] 2 08:18:47 Imaging Results None recorded. Procedure Notes None recorded. Medical Equipment None Reported. Allergies Allergen ID Allergen Name Allergen Category Reaction Reaction Severity Criticality Documentation Date Start Date Code Code System Note Provider Name and Address Organization Details Recorded Time niacin medicatio n Not available Not available Not available 02/09/2022 7393 RxNorm Mckenna Londono [facility], [place] - [facility] [place] 2 08:04:46 Medications Name Sig Start Date Stop [...] TAKE 1 TABLET BY MOUTH TWICE DAILY 03/09 completed Not Available Not Available [...] Updated DateTime 5 162.56 cm 27.7 kg/m2 44714.8 1 g 97.2 [degF] 85 /min 16 /min 90 mm[Hg] 42 mm[Hg] Nga [facility] [place] 5 13:59:53 Date Recorded Body height Body mass index (BMI) Body weight Oxygen saturation Oxygen saturation in Arterial blood by Pulse oximetry Heart rate Respiratory rate Systolic blood pressure Diastolic blood pressure Provider Name and Address Organization Details Last Updated DateTime 4 162.56 cm 31.2 kg/m2 23159.0 9 g 97 % 97 % 68 /min 12 /min 100 mm[Hg] 60 mm[Hg] Edyta Tan[place]le [place] - [facility] [place] 4 10:17:29 Date Recorded Body height Body mass index (BMI) Body weight Body temperature Oxygen saturation Oxygen saturation in Arterial blood by Pulse oximetry Heart rate Respiratory rate Systolic blood pressure Diastolic blood pressure Provider Name and Address Organization Details Last Updated DateTime 4 162.56 cm 30.8 kg/m2 71570.4 7 g 97.8 [degF] 99 % 99 % 75 /min 16 /min 95 mm[Hg] 45 mm[Hg] Chikis Med[place] - [facility] [place] 4 14:39:42 Date Recorded Body height Body mass index (BMI) Body weight Body temperature Oxygen saturation Oxygen saturation in Arterial blood by Pulse oximetry Heart rate Respiratory rate Systolic blood pressure Diastolic blood pressure Provider Name and Address Organization Details Last Updated DateTime 3 162.56 cm 30.5 kg/m2 83939 g 97.1 [degF] 98 % 98 % 57 /min 20 /min 123 mm[Hg] 57 mm[Hg] Pastora Pham [facility] [place] 3 09:04:56 Date Recorded Body height Body mass index (BMI) Body weight Oxygen saturation Oxygen saturation in Arterial blood by Pulse oximetry Body temperature Heart rate Heart rate Respiratory rate Systolic blood pressure Diastolic blood pressure Provider Name and Address Organization Details Last Updated DateTime 4 162.56 cm 28.8 kg/m2 47604.5 2 g 96 % 96 % 97.3 [degF] 64 /min 64 /min 16 /min 142 mm[Hg] 72 mm[Hg] Nga [facility] [place] 4 11:21:49 Social History Question Answer Notes LastModified by [employer] Details LastModified Time Tobacco Smoking Status Current Every Day Smoker Former 1 PPD hx X 50 years. [facility] [place] 01/10/2023 11:38:36 What Is Your Level Of Caffeine Consumption? Heavy [email or web address] Information not available 04/18/2023 What Type Of Diet Are You Following? REGULAR [email or web address] Information not available 04/18/2023 Which Illicit Or Recreational Drugs Have You Used? Marijuana Daily [email or web address] Information not available 04/18/2023 What Was The Date Of Your Most Recent Tobacco Screening? 04/18/2023 [email or web address] Information not available 04/18/2023 What Is Your Current Pack Years? 30ormorepack years [email or web address] Information not available 08/10/2022 At What Age Did You Start Smoking Tobacco? 8 [email or web address] Information not available 04/18/2023 How Much Tobacco Do You Smoke? 0.5 PPD Smoking 10 Cigerettes Daily [email or web address] Information not available 08/01/2023 Have You Used IV Drugs? No [email or web address] Information not available 04/18/2023 Sex: Unknown Functional Status Question Answer Note LastModified by Organizat ion Details LastModified Time Do you use any illicit or recreational drugs? Yes [email or web address] Information not available 04/18/2023 What is your level of alcohol consumption? None [email or web address] Information not available 04/18/2023 What is your exercise level? None [email or web address] Information not available 04/18/2023 Mental Status None [...] SNOMED-CT Code Diagnosis ICD10 Code Diagnosis Note [id number] MD [facility] [address] [place] [address] [place] [address] 02/09/2022 09:02:45 02/09/2022 15:13:07 Chronic hyponatremia 23472622 E87.1 Suspect SIADH. Sodium remains stable at 126. Patient recommende d to continue on salt tabs twice daily. She is advised to continue to monitor fluid intake. Will continue to trend sodium levels. Normocytic anemia 747204 002 D64.9 Patient continues to demonstrat e persistent normocytic anemia. She has remained relatively stable. Will continue to trend levels. Chronic pa in due to malignant neoplastic disease 296839916 G89.3 Continue Percocet p.r.n.. Nausea 107118538 R11.0 Continue Phenergan p.r.n.. Squamous c ell carcinoma of right lung [id number] 8087104 C34.31 Clinically the patient remains stable. She [...] free to give me a call at [phone]. I personally spent 40 minutes in patient care on this date reviewing records, obtaining interim history, performing a physical exam, ordering and reviewing today's labs, counseling the patient, writing chemothera py orders, and documentin g the clinical informatio n in the electronic health record. [id number] MD ALBERT [facility] [address] [place] [address] 03/08/2022 08:43:41 03/08/2022 09:10:30 Squamous cell carcinoma of right lung [id number] 0897578 C34.31 [id number] MD [facility] [address] [place] [address] 03/09/2022 08:26:53 03/09/2022 09:15:35 Squamous cell carcinoma of right lung 5104557599 9942270 C34.31 Patient actually looks quite well today. [...] the electronic health record. Chronic hyponatremia 503 92541 E87.1 Suspect SIADH. Sodium back down a little to 123. Patient notes that she was taken off her sodium tabs during the hospitaliz ation for CHF. Will hold off restarting salt tabs for now given recent CHF. Discussed with patient that she needs to discuss her hyponatrem ia with Cardiology . Need to know there cutoff to consider restarting salt tabs. Normocytic anemia 957627 002 D64.9 Patient continues to demonstrat e persistent normocytic anemia. She has remained relatively stable. Will continue to trend levels. Nausea 713223430 R11.0 Continue Phenergan p.r.n.. 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 [id number] MD [facility] [address] [place] [address] [place] [address] 03/23/2022 08:16:41 03/23/2022 08:41:29 Squamous cell carcinoma of right lung [id number] 5520555 C34.31 Clinically the patient continues to do well. She continues to tolerate treatment well without any significan t concerns. No evidence to suggest recurrent heart failure at this time. Repeat laboratory evaluation today reviewed. Patient appropriat e to proceed with treatment as planned. She will return to clinic in 2 weeks for considerat ion of her th and final cycle of maintenanc e durvalumab . Thank you for allowing me to participat e in the care of Ms. Antoine. Should you have any further questions or concerns please feel free to give me a call at [phone]. I personally spent 40 minutes in patient care on this date reviewing records, obtaining interim history, performing a physical exam, ordering and reviewing today's labs, counseling the patient, writing chemothera py orders, and documentin g the clinical informatio n in the electronic health record. Chronic hyponatremia 503 98022 E87.1 Suspect SIADH. Sodium back down to 120 today. Patient notes that she was taken off her sodium tabs during the hospitaliz ation for CHF. Will hold off restarting salt tabs for now given recent CHF. No significan t symptoms noted despite the hyponatrem ia. Recommend fluid restrictio n. Normocytic anemia 268990 002 D64.9 Patient continues to demonstrat e persistent normocytic anemia. She has remained relatively stable. Will continue to trend levels. Nausea 859111998 R11.0 Continue Phenergan p.r.n.. 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 [id number] MD [facility] [address] [place] [address] [place] [address] 04/06/2022 08:41:30 04/06/2022 09:01:15 Squamous cell carcinoma of right lung [id number] 0558858 C34.31 Clinically the patient remains relatively stable [...] the electronic health record. Chronic hyponatremia 503 40763 E87.1 Suspect SIADH. Sodium slightly improved to 123 today. Recommend continued fluid restrictio ns. Continue to hold salt tabs for now given recent CHF exacerbati on. If sodium noted trend below 1 20 May need to restart though. Normocytic anemia 243333 002 D64.9 Patient continues to demonstrat e persistent normocytic anemia. She has remained relatively stable. Will continue to trend levels. Nausea 109349451 R11.0 Continue Phenergan p.r.n.. 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 [id number] MD [facility] [address] [place] [address] [place] [address] 05/04/2022 08:19:39 05/04/2022 08:34:41 Squamous cell carcinoma of right lung [id number] 8210410 C34.31 Clinically the patient continues to do [...] free to give me a call at [phone]. I personally spent 30 minutes in patient care on this date reviewing records including personally reviwing CT imaging, obtaining interim history, performing a physical exam, ordering and reviewing today's labs, counseling the patient, documentin g the clinical informatio n in the electronic health record, and communicat ing the results to the patient. Chronic hyponatremia 503 85805 E87.1 Suspect SIADH. Sodium slightly improved to 123 today. Recommend continued fluid restrictio ns. Continue to hold salt tabs for now given recent CHF exacerbati on. If sodium noted trend below 120 may need to restart though. Repeat level today remains stable at 128. Normocytic anemia 829049 002 D64.9 Patient continues to demonstrat e persistent normocytic anemia. She has remained relatively stable. Will continue to trend levels. repeat CBC today actually showed some mild improvemen t in the hemoglobin back up to the 11s. Nausea 599370325 R11.0 Continue Phenergan p.r.n.. 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 [id number] MD [facility] [address] [place] [address] [place] [address] 05/10/2022 08:01:35 05/10/2022 08:26:33 Chronic obstructive pulmonary disease 60802376 J44.9 Pulmonary emphysema 8743 3001 J43.9 Primary ma lignant neoplasm of lung 20497342 C34.90 History of non-small cell malignant neoplasm of lung 804405859 Z85.118 [id number] MD [facility] [address] [place] [address] [place] [address] 06/14/2022 10:16:57 06/14/2022 11:31:52 Chronic obstructive pulmonary disease 54838487 J44.9 Pulmonary emphysema 8743 3001 J43.9 Primary ma lignant neoplasm of lung 07372884 C34.90 History of non-small cell malignant neoplasm of lung 723552881 Z85.118 Congestive heart failure 13073775 I50.9 history of congestive heart failure with EF of 30 to 35% Chronic hyponatremia 503 09499 E87.1 History of pleural effusion 247937255 Z87.09 Acute bronchitis 4768383 2 J20.9 Pleural effusion 5095737 8 J90 [id number] MD [facility] [address] [place] [address] [address] [place] [address] 07/13/2022 10:38:32 07/13/2022 11:04:01 Chronic obstructive pulmonary disease 06258997 J44.9 Pulmonary emphysema 8743 3001 J43.9 Primary ma lignant neoplasm of lung 41163539 C34.90 History of non-small cell malignant neoplasm of lung 655626819 Z85.118 Congestive heart failure 56147748 I50.9 history of congestive heart failure with EF of 30 to 35% Chronic hyponatremia 503 35728 E87.1 History of pleural effusion 067842384 Z87.09 Pleural effusion 5984738 8 J90 [id number] [facility] [address] [place] [address] [place] [address] 08/05/2022 09:07:13 08/05/2022 09:44:04 Squamous cell carcinoma of right lung [id number] 6561461 C34.31 Diagnosis: 1. Squamous cell carcinoma of [...] the electronic health record. Chronic hyponatremia 503 18926 E87.1 Suspect SIADH. Repeat laboratory evaluation today. Labs pending at this time. Normocytic anemia 478256 002 D64.9 Patient continues to demonstrat e persistent normocytic anemia. She has remained relatively stable. Will continue to trend levels. Repeat laboratory evaluation today. Labs pending at this time. Nausea 488776111 R11.0 Continue Phenergan p.r.n.. 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 [id number] Vishnu Contreras MD [facility] [address] [place] [address] 09/09/2022 11:35:50 09/09/2022 11:36:39 Chronic pain due to malignant neoplastic disease 479148366 C80.1 Primary ma lignant neoplasm of lung 65349857 C34.90 [id number] MD [facility] [address] [place] [address] [address] [place] [address] 10/05/2022 09:04:39 10/05/2022 09:36:06 Chronic obstructive pulmonary disease 80053452 J44.9 Pulmonary emphysema 8743 3001 J43.9 Primary ma lignant neoplasm of lung 75282858 C34.90 History of non-small cell malignant neoplasm of lung 679010894 Z85.118 Congestive heart failure 89686776 I50.9 history of congestive heart failure with EF of 30 to 35% Chronic hyponatremia 503 70906 E87.1 History of pleural effusion 615466143 Z87.09 Acute exac erbation of chronic obstructive pulmonary disease 384679409 J44.1 Acute bronchitis 2935458 2 J20.9 [id number] Vishnu Contreras MD [facility] y[address] [place] [address] 10/07/2022 16:06:16 10/07/2022 16:29:36 Chronic pain due to malignant neoplastic disease 084002566 C80.1 [id number] MD [facility] [address] [place] [address] [place] [address] 12/14/2022 08:30:46 12/14/2022 09:10:13 Squamous cell carcinoma of right lung 4100632529 0932729 C34.31 squamous cell carcinoma of right lungDiagno [...] CBC and CMP today. Chronic hyponatremia 503 84589 E87.1 Suspect SIADH From smoking /COPD.. Repeat laboratory evaluation today. Labs pending at this time. Normocytic anemia 142423 002 D64.9 Patient continues to demonstrat e persistent normocytic anemia. She has remained relatively stable. Will continue to trend levels. Repeat laboratory evaluation today. Labs pending at this time. Nausea 075900889 R11.0 Continue Phenergan p.r.n.. 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 Continuous dependence on cigarette smoking 8264746578 41995 F17.210 I have discussed with the patient smoking cessation. She is not ready to quit yet. Screening for malignant neoplasm of colon 755132736 Z12.11 patient declined colonoscop y. Screening mammography 792442 Z12.31 patient declined mammogram. Central ve nous catheter in situ 298587996 Z95.828 Patient needs Port-A-Cat h flushed every month. [id number] MD [facility] [address] [place] [address] DR [address] [place] [address] 01/10/2023 11:23:11 01/10/2023 11:43:27 Chronic obstructive pulmonary disease 70493398 J44.9 Pulmonary emphysema 8743 3001 J43.9 Primary ma lignant neoplasm of lung 09468608 C34.90 History of non-small cell malignant neoplasm of lung 678974373 Z85.118 Congestive heart failure 43255961 I50.9 history of congestive heart failure with EF of 30 to 35% History of pleural effusion 257886066 Z87.09 [id number] MD AL[facility]ERT [facility] [address] [place] [address] [place] [address] 04/18/2023 08:36:16 04/18/2023 09:37:54 Squamous cell carcinoma of right lung 7013853383 9580491 C34.31 squamous cell carcinoma of right lung [...] back in 4 months. Chronic hyponatremia 503 11246 E87.1 Suspect SIADH From smoking /COPD. And from being on Aldactone. Repeat laboratory evaluation today. Labs pending at this time. Normocytic anemia 992364 002 D64.9 Patient continues to demonstrat e persistent normocytic anemia. She is on folic acid and iron. I am repeating iron studies today. 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 Seen by pain specialist but declined procedure . Continuous dependence on cigarette smoking 0660483522 06329 F17.210 I have discussed with the patient smoking cessation. She is not ready to quit yet. Screening for malignant neoplasm of colon 717853803 Z12.11 patient declined colonoscop y, will order Cologuard. Screening mammography 24 980127 Z12.31 patient declined mammogram. Central ve nous catheter in situ 158257188 Z95.828 Patient needs Port-A-Cat h flushed every month. Pain of le ft ankle joint 9734556048 9039433 M25.572 I have ordered x-ray.- Addendum, discuss with Radiology, x-ray showed 2 small fractures. Patient was referred urgently to orthopedic . [id number] MD [facility] [address] [place] [address] [address] [place] [address] 08/01/2023 10:04:10 08/01/2023 10:33:32 Chronic obstructive pulmonary disease 97334710 J44.9 Pulmonary emphysema 8743 3001 J43.9 Primary ma lignant neoplasm of lung 36709554 C34.90 History of non-small cell malignant neoplasm of lung 819211442 Z85.118 Congestive heart failure 91394283 I50.9 history of congestive heart failure with EF of 30 to 35% History of pleural effusion 091096712 Z87.09 [id number] [facility] [address] [place] [address] [place] [address] 10/25/2023 14:21:53 10/25/2023 14:59:12 Squamous cell carcinoma of right lung 1646640117 5819474 C34.31 Diagnosis: 1. Squamous cell carcinoma of [...] will see the patient back in 4 months.Olivia dinero presents October 25, 2023 for follow-up [...] the electronic health record. Chronic hyponatremia 503 25958 E87.1 Suspect SIADH From smoking /COPD. And from being on Aldactone. Repeat laboratory evaluation today. Labs pending at this time. Normocytic anemia 023787 002 D64.9 Patient continues to demonstrat e persistent normocytic anemia. She is on folic acid and iron. Will monitor periodical ly. 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 Seen by pain specialist but declined procedure. Continuous dependence on cigarette smoking 0679121167 15329 F17.210 Patient educated regarding smoking cessation. Screening for malignant neoplasm of colon 212513870 Z12.11 Cologuard was negative. Screening mammography 24 547792 Z12.31 Patient declined mammogram. Patient educated regarding the need to stay on top of all cancer screenings . Central ve nous catheter in situ 714830090 Z95.828 Patient needs Port-A-Cat h flushed every month. Pain of le ft ankle joint 2385680555 5926225 M25.572 Appears resolved. [id number] [facility] [address] [place] [address] [place] [address] 04/23/2024 11:09:59 04/23/2024 11:26:42 Squamous cell carcinoma of right lung 5070909659 7727430 C34.31 Diagnosis: 1. Squamous cell carcinoma of [...] will see the patient back in 4 months.Olivia dinero presents April 23, 2024 for follow-up [...] free to give me a call at [phone]. I personally spent 25 minutes in patient care on this date reviewing records including personally reviewing CT imaging, obtaining interim history, performing a physical exam, ordering and reviewing today's labs, counseling the patient, and documentin g the clinical informatio n in the electronic health record. Chronic hyponatremia 503 53698 E87.1 Suspect SIADH From smoking /COPD. And from being on Aldactone. Repeat laboratory evaluation today. Labs pending at this time. Normocytic anemia 007717 002 D64.9 Patient continues to demonstrat e persistent normocytic anemia. She is on folic acid and iron. Will monitor periodical ly. 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 Seen by pain specialist but declined procedure. Continuous dependence on cigarette smoking 0360572962 40150 F17.210 Patient educated regarding smoking cessation. Screening for malignant neoplasm of colon 452899101 Z12.11 Cologuard was negative. Screening mammography 24 219510 Z12.31 Patient declined mammogram. Patient educated regarding the need to stay on top of all cancer screenings . Central ve nous catheter in situ 333644293 Z95.828 Patient needs Port-A-Cat h flushed every month. Pain of le ft ankle joint 8786520983 8919298 M25.572 Appears resolved. [id number] JAY MEADOWS MD [facility] [address] [place] [address] [place] [address] 07/23/2024 13:46:11 07/23/2024 14:25:03 Squamous cell carcinoma of right lung 8295338362 2745521 C34.31 Diagnosis: 1. Squamous cell carcinoma of the right lower lobe, Stage IIIB, T4N2M0 with apparent mediastina l invasion Treatment: 1. Concurrent chemoradia tion with Carboplati n and Paclitaxel x 6 cycles (Started 01/01/2021)2 . Durvalumab (Started 03/09/2021 , Completed 04/06/2022 ). The patient has no evidence of recurrence on recent CT chest and no new concerning symptoms. I will follow up with her in 6 months with labs and repeat CT CAP with contrast prior. Should you have any further questions or concerns please feel free to give me a call at [phone]. I personally spent 25 minutes in patient care on this date reviewing records including personally reviewing CT imaging, obtaining interim history, performing a physical exam, ordering and reviewing today's labs, counseling the patient, and documentin g the clinical informatio n in the electronic health record. Health Concerns Section Related Observation LastModified by Organization Detai ls LastModified Time None Recorded Concern Status LastModified by Organization Details LastModified Time None Recorded Advance Directives Directive None Recorded Payers Insurance Date Sequence Insurance Name Policy Number Policy Rabago Covered Member ID Rabago Member ID Guarantor Name 04/23/2024 1 [place] Beverley Antoine [id number] Beverley Antoine 10/23/2024 1 [employer] (MEDICARE REPLACEMENT/ ADVANTAGE - PPO) Beverley Hadleyi [id number] Beverley Hadleyi 04/23/2024 1 [employer] (MEDICARE REPLACEMENT/ ADVANTAGE - HMO) Beverley Hadleyi [id number] Beverley Antoine 04/23/2024 1 [place] Beverley Antoine [id number] Beverley Antoine Notes Date Note Type Note [...] The patient was ultimately airlifted to the [facility]. She was loaded with Depakote and [...] grand mal seizure and was transferred to [facility]. While there she underwent additional imaging. Chest [...] showed chronic changes. Low Borges MD [address] [facility],[address], [place], [address], [place] - [place] - [place] & [place] 05/08/2023 23:36:42 08/01/19 24 text/htm l 58-year-old female with history of bronchogenic carcinoma/ non-small cell carcinoma/squamous stage IIIB: T4 N2 M0, squamous cell carcinoma. Patient is status post radiation and chemotherapy. Patient received carboplatin and Paclitaxel, she received durvalumab per Dr. Fang. Medications in the past have included O2, Advair, Incruse/Trelegy, albuterol MDI, duo nebs, Tessalon Perles. Dyspnea, timing with exertion, and again is [...] with rest. Patient had repeat bronchoscopy at [facility] June 2022: Revealed narrowed bronchus intermedius but patent, negative for malignant cells, fungal cultures negative, fungal stain negative, AFB MTB DNA PCR negative . Fungal culture and AFB culture negative. Previous ABG in January 2022 was 7.43, pCO2 38, PO2 39 on 40% O2. She was transferred to [facility] in 2021, COVID-19 negative at that time. She was treated for congestive heart failure at [facility] in 2021.he was treated at [facility] for congestive heart failure. note she has an ejection fraction of 30-35% noted at [facility] in January 2022. She is on Advair/Incruse [...] used to perform coronal and sagittal reconstructions. The [employer] m[employer] automated exposure control was utilized [...] pulmonary nodules will be based on the [facility] criteriaNOTE: Any incidentally noted liver lesions equal [...] used to perform coronal and sagittal reconstructions. The [employer] m[employer] automated exposure control was utilized [...] pulmonary nodules will be based on the [facility] criteriaNOTE: Any incidentally noted liver [...] of incidental pulmonary nodules are based on [facility] criteria.Transcribed Date: 07/08/2022 1:57 PMTranscribed [...] nodules will be based on the [facility] criteria.Any incidentally noted liver lesions equal to [...] This is not significantly changed in size fromMayuary 2021. There is a small to moderate [...] interactions with all of the prescribed and dobd-nel-izzvrme medications with a pharmacist, she again voiced [...] she again voiced understanding. Migel Bullock MD [address] [place] [address],[address], [place], [address], [place] - [place] 08/01/2023 10:36:37 10/25/19 24 text/htm [...] The patient was ultimately airlifted to the [facility]. She was loaded with Depakote and [...] grand mal seizure and was transferred to [facility]. While there she underwent additional imaging. Chest [...] UC, pulmonology, and cardiology. SHOLA MAY, OSITO [address] [facility],[address], [place], [address], [email or web address] - [place] - [place] 10/25/2023 15:20:22 04/23/20 24 text/htm [...] The patient was ultimately airlifted to the [facility]. She was loaded with Depakote and [...] grand mal seizure and was transferred to [facility]. While there she underwent additional imaging. Chest [...] UC, pulmonology, and cardiology. SHOLA MAY, OSITO [address] [facility],[address], [place], [address], [place] - [place] 05/30/2024 13:33:09 07/23/19 25 text/htm l 59 y/o female with a diagnosis of NSCLC [...] The patient was ultimately airlifted to the [facility]. She was loaded with Depakote and [...] grand mal seizure and was transferred to [facility]. While there she underwent additional imaging. Chest [...] from March 29, 2023 showed chronic changes. _ Patient presents for follow-up regarding her history of stage III squamous cell carcinoma of the lung which was diagnosed and treated in 2020 to 2021. She recently had a CT chest on 07/17/24 which was negative for evidence of disease recurrence. She report no new health changes, her weight is stable, appetite ok and breathing is ok. She still smokes cigarettes but is trying to quit. JAY MEADOWS MD [address] [facility],[address], [place], [address], [facility] [[email or web address]] - [facility] & [place] 10/23/2024 19:20:36 OBGyn Episode No OBEpisode recorded.
[2024-10-29 13:23] VITALS: BMI 28.0
[2024-10-29] MEDS: SODIUM CHLORIDE 0.9% 10ML FLUSH SYRINGE 10 ML IV (13:30)
--- NOTE | 2024-10-29 13:45 | CA_ITS ---
APPROVED REPORT EXAM: Comprehensive 2D, Doppler, and color-flow Echocardiogram Ip Architect: Edyta De La Garza RVT Ht: 5 ft 3 in Wt: 158lbs BSA: 1.75 BP: 103/48 mmHg Indications: CP,CAD,CHF,ABN EKG,HTN,DM,SMOKER,HLD,MR TDS-LIMITED WINDOWS 2D Dimensions IVSd 1.38 cm F: 0.6-1.0 LVEF (Visual) 61.80 % PWd 1.42 cm F: 0.6 - 1.0 LA Volume 32.20 mL LVDd 4.44 cm F: 3.9 - 5.3 LA Volume Index 18.40 mL/m2 (M/F) 16-34 LVDs 2.97 cm F: 2.2 - 3.5 M-Mode Dimensions LA Diam 3.62 cm (1.9-4.0) TAPSE 2.26 (<1.7) LV Diastology E Decel Time 150 (160-240 msec) E/A Ratio 0.9 Aortic Valve MARYJANE Index 2.13 cm2/m2 AoV Peak Timothy. 121.0 (50-130 cm/s) AI PHT 497.00 ms AO Peak GR. 5.90 mmHg AO Mean GR. 3.30 (<5 mmHg) AO VTI 20.7 (18-25 cm) MARYJANE (VTI) 3.82 (2.5-4.5 cm2) Mitral Valve MV E Max Timothy. 80.0 (40-130 cm/s) MV A Velocity 94.0 (40-130 cm/s) E/A Ratio 0.86 MV PHT 44.0 ms Pulmonary Valve PV Peak Velocity 57.0 (50-150 cm/s) Left Ventricle The left ventricle is normal size. Left ventricular systolic function is mildly decreased. There is normal left ventricular wall thickness. There is mild global hypokinesis present. Grade 1 diastolic dysfunction is present. LVEF is 45%. Right Ventricle The right ventricle is normal size. The right ventricular systolic function is normal. Atria The left atrium size is normal. The right atrium size is normal. There is no Doppler evidence of interatrial shunt. Aortic Valve Aortic valve is mildly thickened. There is no aortic valvular stenosis. Moderate aortic regurgitation. Mitral Valve The mitral valve is mildly thickened. No evidence of mitral valve stenosis. Mild mitral regurgitation. Tricuspid Valve Tricuspid valve is grossly normal in structure and function. Trace tricuspid regurgitation. There is insufficient TR jet to estimate RVSP. Pulmonic Valve The pulmonary valve is normal in structure. Trace pulmonic regurgitation. Great Vessels The aortic root is normal in size. IVC is normal in size and collapses >50% with inspiration. Pericardium There is no pericardial effusion. Other Information Study Quality: Fair Conclusion Mildly reduced LV systolic function (LVEF 45%). Moderate AI. Mild MR. Electronically signed by : Delisa Juarez MD 10/29/2024 22:34:42
[2024-10-29 14:20] LABS: Thyroid Stimulating Hormone 1.27 uIU/mL (0.465-4.68)
[2024-10-29 15:29] LABS: Vitamin B12 946 pg/mL (239-931)
[2024-10-29 20:41] LABS: Free T4 (Free Thyroxine) 0.81 ng/dl (0.78-2.19)
[2024-10-29 21:42] LABS: Folate > 20.00 ng/mL
== END 2024-10-29 13:35 | disposition home or self-care (01) ==
LOC: RT 12:49 → INF 13:23
PROVIDERS: PCP Family Medicine; Visit Provider Nurse Practitioner Family
DX: I11.0 Hypertensive heart disease with heart failure (principal); I50.9 Heart failure, unspecified; E11.9 Type 2 diabetes mellitus without complications; E78.5 Hyperlipidemia, unspecified; F17.200 Nicotine dependence, unspecified, uncomplicated; I25.118 Atherosclerotic heart disease of native coronary artery with other forms of angina pectoris; I42.0 Dilated cardiomyopathy
CPT/HCPCS: 36591; 82607; 82746; 84439; 84443; 93306; J1642

== ENCOUNTER 2024-10-30 07:53 | Day surgery (SDC) | payer MEDICARE, SELFPAY ==
[2024-10-30] VITALS (10 sets, daily range): BP systolic 100–124; BP diastolic 39–79; PULSE 67–82; RESP 16–20; TEMP 36.9; O2SAT 95–100; BMI 28.0
--- NOTE | 2024-10-30 07:00 | IR_ITS ---
APPROVED REPORT Patient Location: Outpatient [facility] Trimmer: VIANEY Goss RT (R) PROCEDURES Left heart catheterization Left ventriculogram Selective coronary angiogram INDICATION Accelerated angina pectoris, Coronary artery disease Informed consent was obtained prior to the procedure. COMPLICATIONS NONE Estimated Blood Loss: LESS THAN 10 ML TECHNIQUE One percent lidocaine used to anesthetize the right anterior aspect of the wrist. The right radial artery was accessed via the Seldinger technique. A 6 Arabic sheath was placed in the right radial artery. 2.5 mg of Verapamil, 800 mcg of nitroglycerin, 1mg Lidocaine and 5000 U Heparin were given through the arterial sheath. The JL3 catheter was also used to perform left heart catheterization, left ventriculogram and selective coronary angiogram. At the end of the procedure the sheath was removed good hemostasis was achieved using Traclet band, patient was transferred to the postop holding area in stable condition. ANGIOGRAPHIC RESULTS The left main artery Has an ostial 60 to 70% stenosis with dampening upon engagement of the catheter The left anterior descending artery Has mild 10% luminal irregularities The circumflex artery Nondominant with mild 10% luminal regularities The right coronary artery Massively large dominant and proximally occluded. Distally a very large posterior lateral branch fills via [id number] collaterals as does the large posterior descending artery The PHIPPS ventriculogram reveals Reduced at 40% The left ventricular end-diastolic pressure 20 mmHg IMPRESSION Severe coronary artery disease as described above Reduced ejection fraction Elevated LVEDP PLAN 1. Patient will be referred for surgical revascularization 2. LDL less than 55 achieved with high intensity statin 3. Avoidance of tobacco products 4. Risk factor modification Electronically signed by : Augustin Ashraf MD 10/30/2024 10:37:33
[2024-10-30 08:33] LABS: Basophils % 0.6 % (0.1-2.0); Eosinophils # 0.1 Kmm3 (0.0-0.4); Eosinophils % 2.1 % (0.1-12.0); Hematocrit 31.6 % (37.0-47.0); Hemoglobin 10.5 g/dL (12.2-16.2); Immature Granulocytes # 0.01 10^3uL; Immature Granulocytes % 0.2 %; Lymphocytes # 1.5 K/mm3 (0.7-4.5); Lymphocytes % 29.3 % (10-50); Mean Corpuscular HGB Conc 33.2 g/dL (31.8-35.4); Mean Corpuscular Hemoglobin 32.9 pg (27.0-31.2); Mean Corpuscular Volume 99.1 fl (81-99); Mean Platelet Volume 10.7 fl (7.4-10.4); Monocytes # 0.5 K/mm3 (0.1-1.0); Monocytes % 10.4 % (1.7-9.3); Neutrophils # 2.9 K/mm3 (1.8-7.8); Neutrophils % 57.4 % (37.0-80.0); Nucleated Red Blood Cells # 0 10^3/uL; Nucleated Red Blood Cells % 0 %; Platelet Count 217 K/mm3 (142-424); Red Blood Count 3.19 M/mm3 (4.20-5.40); Red Cell Distribution Width 13.5 % (11.5-17.5); Red Cell Distribution Width-SD 49.1 fL; White Blood Count 5.1 K/mm3 (4.8-10.8)
[2024-10-30 08:41] LABS: Chloride 116 mmol/L (98-107); Potassium 3.9 mmoL/L (3.5-5.1); Sodium 142 mmol/L (136-145)
[2024-10-30 08:43] LABS: Blood Urea Nitrogen 13 mg/dl (7-17); Creatinine Clearance Estimated 97 mL/min (50-200); Estimated Glomerular Filt Rate 85 ml/min (>60); GFR (African American) 103 ML/MIN (>60)
[2024-10-30 08:44] LABS: Anion Gap 6.9 mEq/L (5-15); Calcium 8.9 mg/dl (8.4-10.2); Carbon Dioxide 23 mmol/L (22.0-30.0); Glucose 110 mg/dl (74-100)
[2024-10-30] MEDS: HEPARIN 1,000 UNITS/500ML NS (CATH LAB) 3000 UNIT IV (09:28)
[2024-10-30] MEDS: diphenhydrAMINE 50MG/ML VIAL 50 MG IV (09:28)
[2024-10-30] MEDS: 0.9 % SODIUM CHLORIDE 500 ML 25 ML IV (09:28)
[2024-10-30] MEDS: LIDOCAINE 1% 10ML MDV 10 ML IJ (09:28)
[2024-10-30] MEDS: NITROGLYCERIN 800MCG/8ML SYR (CATH LAB) 800 MCG IA (09:28)
[2024-10-30] MEDS: HEPARIN 1,000 UNITS/ML 10ML VIAL (CATH LAB) 5000 UNIT IV (09:29)
[2024-10-30] MEDS: VERAPAMIL 2.5MG/ML 2ML VIAL 2.5 MG IV (09:29)
[2024-10-30] MEDS: FENTANYL 100MCG/2ML VIAL 50 MCG IV (10:15)
[2024-10-30] MEDS: MIDAZOLAM HCL 1MG/ML 5ML VIAL 1 MG IV (10:15)
--- NOTE | 2024-10-30 10:42 | SUR.PHASEII ---
at [facility] to speak with pt and on plan of care
--- NOTE | 2024-10-30 11:01 | SUR.PHASEII ---
All information faxed to [facility], stated they would call patient with an appointment
[2024-10-30] MEDS: IOPAMIDOL-370 (76%);100ML BOTTLE 50 ML IV (11:09)
--- NOTE | 2024-10-30 12:14 | SUR.PHASEII ---
MD at beside speaking to patient per patient request
== END 2024-10-30 12:37 | disposition home or self-care (01) ==
PROVIDERS: PCP Family Medicine; Visit Provider Internal Medicine
PROC: 4A023N7 Measurement of Cardiac Sampling and Pressure, Left Heart, Percutaneous Approach (ICD-10-PCS; CPT 93452; principal; 2024-10-30 07:15)
DX: I25.118 Atherosclerotic heart disease of native coronary artery with other forms of angina pectoris (principal); I42.0 Dilated cardiomyopathy; I34.0 Nonrheumatic mitral (valve) insufficiency; R06.09 Other forms of dyspnea; R94.31 Abnormal electrocardiogram [ECG] [EKG]; I11.0 Hypertensive heart disease with heart failure; C34.90 Malignant neoplasm of unspecified part of unspecified bronchus or lung; I50.9 Heart failure, unspecified; E11.9 Type 2 diabetes mellitus without complications; E78.5 Hyperlipidemia, unspecified; R56.9 Unspecified convulsions; F17.200 Nicotine dependence, unspecified, uncomplicated; Z92.3 Personal history of irradiation; Z88.6 Allergy status to analgesic agent; Z88.5 Allergy status to narcotic agent; Z88.2 Allergy status to sulfonamides; Z88.8 Allergy status to other drugs, medicaments and biological substances; Z79.84 Long term (current) use of oral hypoglycemic drugs; Z79.899 Other long term (current) drug therapy; Z82.49 Family history of ischemic heart disease and other diseases of the circulatory system
CPT/HCPCS: 93458; 80048; 85025; 99152; C1725; C1769; J1200; J1642; J1644; J3010; Q9967

== ENCOUNTER 2025-02-11 09:05 | Outpatient (CLI) | payer MEDICARE, SELFPAY ==
--- OUTSIDE RECORDS SUMMARY | 2008-08-14 04:40 | XMS_ITS | Continuity of Care Document ---
Author Organization [facility] Address [address] [place] [address] Phone Care Team Providers Care Electrophysiology Technologist Name Role Phone Verna Holly Unavailable Unavailable Allergies, Adverse Reactions, Alerts Substance Reaction Status Criticality sulfanilamide Hives/Skin Rash Active No Informat ion Medications Medication Instructions Dosage Effective Dates (start - stop) Status Comments Crestor 40 mg Tab - Active Cymbalta 60 mg Cap Take 1 tablet by aleksandr th daily - Active Requip 2 mg Tab Take 1 tablet by aleksandr th 2 times daily. - Active Kyra 50 mg Cap - Active ibuprofen 600 mg Tab Take 1 tablet by mo uth every 8 hours with food. - Active Procedures Procedure Date Measure blood oxygen level, single Office/outpatient visit,[facility] 2008 Advance Directives Directive Yes / No Effective Date File Name Resuscitation Not Answered N/A N/A Life Support Not Answered N/A N/A Intubation Not Answered N/A N/A Antibiotics Not Answered N/A N/A IV Fluid Support Not Answered N/A N/A Tube Feed Not Answered N/A N/A Other Directive N/A N/A WARNING:The information contained in this section is historical and is provided for information only and does not constitute a legal document or any assurance that the information is still accurate. Please verify the information with the alvarez of the legal document before using it for clinical purposes. Encounters Encounter Description Practice Location Reason(s) For Visit Diagnoses Date Provider Office/outpat ient visit,Located within [facility], [address] [place], [address], tel:[phone] [facility] [facility] chronic pain syndrome (chief complaint) Pain Syndrome, ChronicPain Syndrome, ChronicPain Syndrome, ChronicHyperlipidemia NEC/NOS [phone] [facility], [place], [address], [place]. tel:[phone] Family History Family Member Type Diagnosis Age At Onset Father Problem (finding) Heart disease Payers Payer name Insurance type Covered democrat ID Authoriza tion(s) No Information Social History Type Description Quantity Date Captured Comments Alcohol Use Details No Caffeine Use Details coffee Tobacco Use Status Smoking Status No Information Sex Female Vital Signs Date / Time: Height Weight BMI Pulse Rate Blood Pressure Temperature Respiratory Rate Body Surface Area Head Circumference Head Circ. Percentile Wt./Sean. Percentile BMI percentile Pulse Ox Inhaled Ox 8:55 AM 65.00 in 212.00 lbs 35.2 7 kg/m eter (2) 84 /min 124/78 mm[Hg] 98.00 F 18 /min Chief Complaint And Reason For Visit From encounter dated '08/14/2008 08:40'. chronic pain syndrome (chief complaint). Description: New pt states she has chronic pain syndrome resulting from multiple abdominal surgeries. Was seeing pain management in [place], just moved [place] weeks ago. Has empty bottle of morphine 50mg w/ her and is asking for refills. States if I can't rx the morphine she will take percocet instead. Note that pt has no medical records w/ her. History Of Present Illness Encounter Date Complaint History Of Prese nt Illness No Information Instructions Date Instruction Additional Infor anatoly Order labs/studies Related to Pa in Syndrome, Chronic Review medications Related to Pa in Syndrome, Chronic Order consults Related to Pain Syndrome, Chronic Assessments Type Assessment Date No Information Mental Status Date Cognitive Assessment Normal Orientation
--- OUTSIDE RECORDS SUMMARY | 2017-08-23 10:33 | XMS_ITS | Encounter Summary ---
Author Organization [place] [address] Care Team Providers Care Methods Specialist Engineer Name Role Phone Marge Woodard MD Primary Care Provider [phone] Encounter Details Date Type Department Care Team (Latest Contact Info) Description 08/23/2017 10:33 AM EDT Hospital Encounter [facility] Referral Lab [address] [place], [place] [id number] Alhaji Rob PA-C [address] [place] [address] Presence of left artificial knee joint Social History Tobacco Use Types Packs/Day Years Used Date Smoking Tobacco: Every Day Cigarettes 1 50.5 Started: 07/29/1974 Smokeless Tobacco: Never Alcohol Use [...] as of this encounter Functional Status * Cognitive and Functional Status Question Answer Date of Assessment Author Is [...] as of this encounter Mental Status * Cognitive and Functional Status Question Answer Entry Date Author Because of [...] Answer Entry Date Author No 08/12/2017 10:25 AM Miley Cheatham, GIOVANNY documented in this encounter Plan of [...] means documented in this encounter Care Teams Methods Specialist Engineer Relationship Specialty Start Date End Date Marge Woodard MD [address] [place] [address] PCP - General 07/02/09 documented as of this encounter
--- OUTSIDE RECORDS SUMMARY | 2024-12-13 11:20 | XMS_ITS | Encounter Summary ---
Author Organization Healthcare Address [address] [place] [address] Care Team Providers [facility] Name Role Phone Marge Woodard MD Primary Care Provider [phone] Shiela Vela [employer] TENDER Unavailable [phone] Encounter Details Date Type Department Care Team (Late st Contact Info) Description 12/13/2024 11:20 AM EDT [facility] [address], [address] [place] [address] Boris Al MD [address] [place] [address] Coronary artery disease involving tangirnaq coronary artery of tangirnaq heart with angina pectoris (CMS/HCC) (Primary Dx) Social History Tobacco Use Types Packs/Day Years Used Date Smoking Tobacco: Every Day Cigarettes 0.5 50.7 Started: 1975 Smokeless Tobacco: Never Comments:She has been quitti ng, very close. Alcohol Use Standard Drinks/Week Comments Not Currently 0 (1 standard drink = 0.6 oz pur e alcohol) Humiliation, Afraid, Rape, and Kick questionnair e Answer Date Recorded Within the last year, have y ou been afraid of your partner or ex-partner? No 12/18/2024 Within the last year, have y ou been humiliated or emotionally abused in other ways by your partner or ex-partner? No Within the last year, have y ou been kicked, hit, slapped, or otherwise physically hurt by your partner or ex-partner? No 12/18/2024 Within the last year, have y ou been raped or forced to have any kind of sexual activity by your partner or ex-partner? No 12/18/2024 Hunger Vital Sign Answer Date Recorded Within the past 12 months, y ou worried that your food would run out before you got the money to buy more. Never true 12/19/19 25 Within the past 12 months, t he food you bought just didn't last and you didn't have money to get more. Never true 12/18/2024 PRAPARE - Transportation Answer Date Re corded In the past 12 months, has l ack of transportation kept you from medical appointments or from getting medications? No 11/28 In the past 12 months, has l ack of transportation kept you from meetings, work, or from getting things needed for daily living? No 12/18/2024 Housing Stability Vital Sign Answer Smith e Recorded In the last 12 months, was t here a time when you were not able to pay the mortgage or rent on time? No 12/18/2024 Number of Times Moved in the Last Year Not on fi le 12/18/2024 At any time in the past 12 m [facility], were you homeless or living in a [place] facility (including now)? No 12/18/2024 Utilities Answer Date Recorded In the past 12 months has th e electric, gas, oil, or water company threatened to shut off services in your home? No 12/18/2024 Comments No Sex and Gender Information Value Date Recorded Sex Assigned at Not on file Legal Sex Female 1:50 PM EDT Gender Identity Not on file Sexual Orientation Not on file documented as of this encounter Last Filed Vital Signs Vital Sign Reading Time Taken Comments Blood Pressure 99/62 12/13/2024 11:19 AM EDT Pulse 71 12/13/2024 11:19 AM EDT Temperature - - Respiratory Rate - - Oxygen Saturation 98% 12/13/2024 11: 19 AM EDT Inhaled Oxygen Concentration - - Weight 70.3 kg (154 lb 15.7 oz) 025 11:19 AM EDT Height 160 cm (5' 3 ) 12/13/2024 11:19 AM EDT Body Mass Index 27.45 12/13/2024 11:19 AM EDT documented in this encounter Miscellaneous Notes * Progress Notes - Andrew Xavier PA - 12/13/2024 11:20 AM EDT Images from the original note were not included. Reason for visit / Chief Complaint: pre-op History of present illness: Beverley Antoine is a 59 y.o. female referred to us in consultation by Dr. Augustin Fernandez in regards to CAD. Ms. Antoine has a medical Hx that includes Stage IV SCC of the lung where she has completed chemo/rads after Dx in 2020, DM II, epilepsy, COPD, bipolar, and tobacco abuse disorder. She states that she feels she had a heart attack a few weeks ago but didn't seek any treatment. Ultimatelyshe did and had an echo as well as C. Her chest pain is exertional and last 20 minutes. Describesit as vice like around L breast and across chest. Resolves on it's own. She has brought imaging forour review. Her chronic comorbid conditions that impact our treatment planning include: Squamous cell lung cancer(RML) s/p chemo/radiation tx 2021 NYHA Classification: Class II: Mild symptoms with ordinary activity. Smoking Cessation: long tobacco use disorder history. Discussed smoking cessation strategies. Currently not smoking Active Problems: Patient Active Problem List Diagnosis Date Noted Cancer ([facility]) 11/08/2024 CAD (coronary artery disease) 11/07/2024 Angina pectoris 11/07/2024 Carpal tunnel syndrome 11/07/2024 HLD (hyperlipidemia) 11/07/2024 Vitamin D deficiency 11/07/2024 Bipolar affective disorder ([facility]) 11/07/2024 Diabetes ([facility]) 11/07/2024 Seizures ([facility]) 11/07/2024 Insomnia 11/07/2024 Lung cancer ([facility]) 11/07/2024 Anxiety 11/07/2024 Tobacco dependence 11/07/2024 Chronic obstructive pulmonary disease with (acute) exacerbation ([facility]) 03/07/2023 Chronic systolic HF (heart failure) ([facility]) 02/16/2022 Depression 08/11/2017 S/P total knee replacement, left 08/11/2017 Medical History: Past Medical History Pertinent Negatives[1] Surgical History: Surgical History[2] Social History: Tobacco: Tobacco Use: High Risk (12/10/2024) Patient History Smoking Tobacco Use: Every Day Smokeless Tobacco Use: Never Passive Exposure: Not on file Alcohol: Alcohol Use: Not At Risk (04/25/2023) Received from [facility] Q1: How often do you have a drink containing alcohol?: Never Q2: How many drinks containing alcohol do you have on a typical day when you are drinking?: Patientdoes not drink Q3: How often do you have six or more drinks on one occasion?: Never Illicit drug use: Social History Substance and Sexual Activity Drug Use Yes Types: Marijuana Comment: daily, joint, takes a few hits throughout day Family History: family history includes Diabetes type II in her father; Heart disease in her brother and father; Hypertension in her father. Allergies: Allergies[3] Medications: Prior to Admission medications Medication Sig Start Date End Date Taking? Authorizing Provider Acetaminophen 500 MG pack Take by mouth. Lela Toro MD albuterol 108 (90 Base) MCG/ACT inhaler Inhale 2 puffs 4 times a day. Lela Toro MD atorvastatin (Lipitor) 40 MG tablet Take 1 tablet by mouth nightly. Lela Toro MD bisoprolol (Zebeta) 5 MG tablet Take 1 tablet by mouth daily. Patient not taking: Reported on 11/08/2024 Lela Toro MD cholecalciferol (Vitamin D-3) 250 MCG (87484 UT) capsule Take 1 capsule by mouth daily. Lela Toro MD Cyanocobalamin (VITAMIN B 12 PO) Take by mouth. Lela Toro MD folic acid (Folvite) 1 MG tablet Take 1 tablet by mouth daily. Lela Toro MD metFORMIN (Glucophage) 500 MG tablet Take 1 tablet by mouth 2 times a day with meals. Lela Toro MD Multiple Vitamin (multivitamin) tablet Take 1 tablet by mouth daily. Lela Toro MD pregabalin (Lyrica) 50 MG capsule Take 1 capsule by mouth 2 times a day. Lela Toro MD QUEtiapine (SEROquel) 200 MG tablet Take 1 tablet by mouth nightly. Lela Toro MD rOPINIRole (Requip) 5 MG tablet Take 1 tablet by mouth nightly. Lela Toro MD sacubitril-valsartan (Entresto) 24-26 MG tablet Take 1 tablet by mouth 2 times a day. Lela Toro, MD Tiotropium [place] Monohydrate (SPIRIVA HANDIHALER IN) Inhale 1 puff nightly. ProviderLela MD zonisamide (Zonegran) 100 MG capsule Take 1 capsule by mouth 3 times a day. Lela Toro MD Physical exam: There were no vitals taken for this visit. Physical Exam Constitutional: Appearance: Normal appearance. HENT: Head: Normocephalic and atraumatic. Right Ear: Tympanic membrane normal. Nose: Nose normal. Eyes: Pupils: Pupils are equal, round, and reactive to light. Cardiovascular: Rate and Rhythm: Normal rate and regular rhythm. Heart sounds: Murmur heard. Comments: Mitral valve regurgitation Pulmonary: Effort: Pulmonary effort is normal. Breath sounds: Normal breath sounds. Abdominal: General: Abdomen is flat. Palpations: Abdomen is soft. Musculoskeletal: General: Normal range of motion. Cervical back: Normal range of motion and neck supple. Skin: General: Skin is warm and dry. Capillary Refill: Capillary refill takes less than 2 seconds. Neurological: General: No focal deficit present. Mental Status: She is alert and oriented to person, place, and time. Psychiatric: Mood and Affect: Mood normal. Behavior: Behavior normal. Imaging: No echocardiogram results found for the past 12 months Cardiac Cath Results: As noted below from [facility] October 30, 2024 Impression: Two Vessel CAD. Plan: Pre-op consent today. Hotel voucher. She currently will not tolerate the addition of a beta william at this interval. Bp 99/62 with a HeartRate 70. She will stop metformin 48 hours prior to surgery. We are not stopping the entresto. [1] Past Medical History: Diagnosis Date Cancer (CMS/HCC) Lung CHF (congestive heart failure) (CMS/HCC) COPD (chronic obstructive pulmonary disease) (CMS/HCC) Coronary artery disease Diabetes mellitus (CMS/HCC) Hyperlipidemia Myocardial infarction (CMS/HCC) Pneumonia Stroke (CMS/HCC) [2] Past Surgical History: Procedure Laterality Date ABDOMINAL SURGERY multiple, benign tumors and scar tissue ANKLE SURGERY BRONCHOSCOPY CENTRAL VENOUS CATHETER INSERTION HERNIA REPAIR HYSTERECTOMY TOTAL KNEE ARTHROPLASTY Bilateral [3] Allergies Allergen Reactions Poison [place]en Extract Other - please document in the comment field and Unknown - Patient states they do not know rxn details State allergic to poison austen weed-causes blisters,oozing. Tape/Bandaid Adhesive Rash States allergic to silk tape Wasp Venom Protein Anaphylaxis Short of breath,wheezing Short of breath,wheezing venoms of the honeybee and the common yellow jacket Short of breath,wheezing venoms of the honeybee and the common yellow jacket Bupropion Other - please document in the comment field seizure Empagliflozin Dizziness Dizziness, falls Dizziness, falls Niacin Unknown - Patient states they do not know rxn details Risperidone Unknown - Patient states they do not know rxn details Sulfa Drugs Unknown - Patient states they do not know rxn details Venlafaxine Other - please document in the comment field seizure Cosigned by Boris Al MD at 12/17/2024 4:02 PM EDT Associated attestation - Boris Al MD - 12/17/2024 4:02 PM EDT The patient was seen only by Advanced Practice Provider (ALVINA), and care was reviewed with me. documented in this encounter Plan of Treatment Not on file documented as of this encounter Results * (ABNORMAL) CBC (12/13/2024 12:42 PM EDT) WBC Count 5.90 3.70 - 10.30 10*3/uL LAB HEMATOLOGY METHOD 12/13/2024 2:37 PM EDT [facility] RBC Count 3.21(L) 3.90 - 5.20 10*6/uL LAB HEMATOLOGY METHOD 12/13/2024 2:37 PM EDT [facility] HGB 10.5(L) 11.2 - 15.7 g/dL LAB HEMATOLOGY METHOD 12/13/2024 2:37 PM EDT [facility] HCT 32.2(L) 34.0 - 45.0 % LAB HEMATOLOGY METHOD 12/13/2024 2:37 PM EDT [facility] Platelet Count 218 155 - 369 10*3/uL LAB HEMATOLOGY METHOD 12/13/2024 2:37 PM EDT [facility] MCV 100(H) 79 - 98 fL LAB HEMATOLOGY METHOD 12/13/2024 2:37 PM EDT [facility] MCH 32.7(H) 26.0 - 32.0 pg LAB HEMATOLOGY METHOD 12/13/2024 2:37 PM EDT [facility] MCHC 32.6 30.7 - 35.5 g/dL LAB HEMATOLOGY METHOD 12/13/2024 2:37 PM EDT [facility] RDW 13.6 11.5 - 14.5 % LAB HEMATOLOGY METHOD 12/13/2024 2:37 PM EDT [facility] MPV 11.1 8.8 - 12.5 fL LAB HEMATOLOGY METHOD 12/13/2024 2:37 PM EDT [facility] nRBC 0.0 <=0.0 per 100 WBCs LAB HEMATOLOGY METHOD 12/13/2024 2:37 PM EDT [facility] Blood Venous blood specimen / Unknown Venipuncture / Unknown 12/13/2024 12:42 PM EDT 12/13/2024 12:42 PM EDT Boris Al MD LAB BLOOD ORDERABLES Final R esult [facility] [address] [place] [address] * (ABNORMAL) Comprehensive Metabolic Panel, Plasma (12/13/2024 12:42 PM EDT) Glucose, Plasma 81 74 - 99 mg/dL 12/13/2024 2:42 PM EDT [facility] BUN, Plasma 14 8 - 23 mg/dL 12/13/2024 2:42 PM EDT [facility] Creatinine, Plasma 0.69 0.60 - 1.10 mg/dL 12/13/2024 2:42 PM EDT [facility] BUN/Creatinine Ratio 20 12/13/2024 2:42 PM EDT [facility] Sodium, Plasma 140 136 - 145 mmol/L 12/13/2024 2:42 PM EDT [facility] Potassium, Plasma 4.2 3.6 - 4.9 mmol/L 12/13/2024 2:42 PM EDT [facility] Chloride, Plasma 108(H) 97 - 107 mmol/L 12/13/2024 2:42 PM EDT [facility] CO2, Plasma 22 22 - 29 mmol/L 12/13/2024 2:42 PM EDT [facility] Anion Gap 10 6 - 16 mmol/L 12/13/2024 2:42 PM EDT [facility] Total Calcium, Plasma 9.0 8.9 - 10.2 mg/dL 12/13/2024 2:42 PM EDT [facility] Total Protein 6.5 6.3 - 7.9 g/dL 12/13/2024 2:42 PM EDT [facility] Albumin, Plasma 4.0 3.5 - 5.2 g/dL 12/13/2024 2:42 PM EDT [facility] AST, Plasma 25 10 - 35 U/L 12/13/2024 2:42 PM EDT [facility] ALT, Plasma 24 10 - 35 U/L 12/13/2024 2:42 PM EDT [facility] Alkaline Phosphatase, Plasma 100 46 - 142 U/L 12/13/2024 2:42 PM EDT [facility] Total Bilirubin, Plasma <0.2(L) 0.2 - 1.1 mg/dL 12/13/2024 2:42 PM EDT [facility] eGFRcr 99.5 mL/min/1.7 3m*2 12/13/2024 2:42 PM EDT [facility] Comment:Reported eGFRcr in m L/min/1.73m2 is based the CKD-EPI 2020 equation that does not use a race coefficient. Blood Venous blood specimen / Unknown Venipuncture / Unknown 12/13/2024 12:42 PM EDT 12/13/2024 12:42 PM EDT us Boris Al MD LAB BLOOD ORDERABLES Final R esult [facility] [address] [place] [address] * (ABNORMAL) Hemoglobin A1c (12/13/2024 12:42 PM EDT) Hemoglobin A1c 5.8(H) <5.7 % 12/13/2024 3:57 PM EDT [facility] Blood Venous blood specimen / Unknown Venipuncture / Unknown 12/13/2024 12:42 PM EDT 12/13/2024 12:42 PM EDT Narrative [facility] - 12/13/2024 3:57 PM EDT HA1C Interpretive Data: Diagnosis of Diabetes: Diabetic > or = 6.5% Pre-diabetic 5.7 to 6.4% Non-diabetic < or = 5.6% Glycemic Targets for Type I and Type II Diabetics: Non- Adults <7.0% Adults <6.0% Children and Adolescents <7.5% Source: [place] [employer]. Standards of medical care in diabetes,2017. Diabetes Care.2017:40 (suppl 1):S1-S135. Boris Al MD LAB BLOOD ORDERABLES Final R esult [facility] [address] [place] [address] * (ABNORMAL) Protime-INR (12/13/2024 12:42 PM EDT) Prothrombin Time 14.4(H) 12.0 - 14.3 sec LAB COAGULATION METHOD 12/13/2024 3:57 PM EDT [facility] INR 1.1 0.9 - 1.1 LAB COAGULATION METHOD 12/13/2024 3:57 PM EDT [facility] Blood Venous blood specimen / Unknown Venipuncture / Unknown 12/13/2024 12:42 PM EDT 12/13/2024 12:42 PM EDT Narrative [facility] - 12/13/2024 3:57 PM EDT OPTIMAL INR RANGES FOR PATIENT ON ORAL ANTICOAGULANT THERAPY Prevention of venous thromboembolism INR 2.0 to 3.0 In patients with heart disease: Atrial fibrillation INR 2.0 to 3.0 Valvular heart disease INR 2.0 to 3.0 Tissue heart valves INR 2.0 to 3.0 Mechanical prosthetic valves INR 2.5 to 3.5 Prevention of recurrent AL INR 2.5 to 3.5 Boris lA MD LAB BLOOD ORDERABLES Final R esult Performing Organization Address City/[facility]/ZIP Co de Phone Number [facility] [address] [place] [address] * (ABNORMAL) APTT (12/13/2024 12:42 PM EDT) aPTT >200(HH) 25 - 35 sec LAB COAGULATION METHOD 12/13/2024 3:57 PM EDT [facility] Blood Venous blood specimen / Unknown Venipuncture / Unknown 12/13/2024 12:42 PM EDT 12/13/2024 12:42 PM EDT Boris Al MD LAB BLOOD ORDERABLES Final R esult Performing Organization Address [facility] Co de Phone Number [facility] [address] [place] [address] * Type & Screen, 30 Days (12/13/2024 12:42 PM EDT) ABO/Rh O Positive 12/13/2024 12:02 PM EDT BLOOD BANK Antibody Screen Negative 12:02 PM EDT [facility]LO[facility] Specimen Expiration 12/16/2024 23:59 12/13/2024 12:02 PM EDT BLOOD BANK 30 Day Eligibility See Comment 12/13/2024 12:02 PM EDT BLOOD [facility]ANK Comment:This specimen is esperanza gible for a Type and Screen for up to 30 days from collection. On the day of surgery/procedure, please order and collect a new ABO/Rh specimen to confirm the blood type and to re-verify the patient's eligibility for a 30 day Type and Screen. Refer to policy A08-125 Blood or Blood Product Transfusions for more detailed instructions. Blood Venous blood specimen / Unknown Venipuncture / Unknown 12/13/2024 12:42 PM EDT 12/13/2024 12:42 PM EDT Boris Al MD LAB BLOOD BANK TEST ORDERABL ES Final Result Performing Organization Address City/[facility]/ZIP Co de Phone Number BLOOD BANK [address] [place] [address], * XR Chest 2 Views (12/13/2024 11:56 AM EDT) Anatomical Region Laterality Modality Chest Digital Radiogra phy Impressions 12/13/2024 4:17 PM EDT Left chest wall implanted port with tip overlying the upper SVC. Bilateral favio are prominent, right greater than left, and elevated, superimposed nodule cannot definitely be excluded. Consider CT chest with contrast if additional evaluation is clinically warranted. CRITICAL RESULT: No. COMMUNICATION: Per this written report. By electronically signing this report, I, the attending physician, attest that I have personally reviewed the images/data for the above examination(s) and agree with the final edited report. Drafted by Rafaela Loyola on 12/13/2024 3:22 PM Final report signed by Marni Looney MD on 12/13/2024 4:17 PM Narrative 12/13/2024 4:17 PM EDT CLINICAL INDICATION: CAD. History of lung cancer per EMR. TECHNIQUE: XR CHEST 2 VIEWS COMPARISON: None. FINDINGS: Left chest wall implanted port with tip overlying the upper SVC. Cardiac silhouette is within normal limits. Left hilar calcified lymph nodes. Bilateral favio are prominent, right greater than left, and elevated. No consolidation. Small right- sided effusion. No pneumothorax. Procedure Note Marni Looney MD - 12/13/2024 CLINICAL INDICATION: CAD. History of lung cancer per EMR. TECHNIQUE: XR CHEST 2 VIEWS COMPARISON: None. FINDINGS: Left chest wall implanted port with tip overlying the upper SVC. Cardiacsilhouette is within normal limits. Left hilar calcified lymph nodes.Bilateral favio are prominent, right greater than left, and elevated. Noconsolidation. Small right-sided effusion. No pneumothorax. IMPRESSION: Left chest wall implanted port with tip overlying the upper SVC. Bilateral favio are prominent, right greater than left, and elevated,superimposed nodule cannot definitely be excluded. Consider CT chest withcontrast if additional evaluation is clinically warranted. CRITICAL RESULT: No. COMMUNICATION: Per this written report. By electronically signing this report, I, the attending physician, attestthat I have personally reviewed the images/data for the aboveexamination(s) and agree with the final edited report. Drafted by Rafaela Loyola on 12/13/2024 3:22 PM Final report signed by Marni Looney MD on 12/13/2024 4:17 PM us Boris Al MD IMG XR PROCEDURES Final Resu lt documented in this encounter Visit Diagnoses Diagnosis Coronary artery disease involving tangirnaq coronary artery of tangirnaq heart with angina pectoris (CMS/HCC)- Primary Coronary artery disease involving tangirnaq coronary artery of tangirnaq heart with angina pectoris (CMS/HCC) documented in this encounter Additional Health Concerns Assessment Noted Time A fall risk assessment has been complete d for the patient 12/13/2024 11:24 AM EDT A Body Mass Index follow-up plan has been documented for the patient 12/13/2024 11:50 AM EDT documented as of this encounter Care Teams [facility] Relationship Specialty Start Date End Date Marge Woodard MD [address] [place] [id number] PCP - General 10/31/24 Shiela Vela, [employer] TENDER [address] [place], [place] [id number] Referring Physician 10/31/24 documented as of this encounter
--- OUTSIDE RECORDS SUMMARY | 2024-12-13 11:50 | XMS_ITS | Encounter Summary ---
Author Organization Healthcare Address [address] 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 No 12/18/2024 Utilities Answer Date Recorded In the past 12 months has th e [employer], gas, oil, or water company threatened to shut off services in your home? No 12/18/2024 Comments No Sex and Gender Information Value Date Recorded Sex Assigned at Not on file Legal Sex Female 1:50 PM EDT Gender Identity Not on file Sexual Orientation Not on file documented as of this encounter Functional Status * Calculated C-SSRS Risk Score (Lifetime/Recent) Answer Date of Assessment Author No Risk Indicated 12/18/2024 8:00 PM Lela Leggett * Question Answer Date of Assessment Author 1. Wish to be (Past 1 Month) No 025 8:00 PM CIARAT Lela Khan 2. Non-Specific Active Suici jorge Thoughts (Past 1 Month) No 12/18/2024 8:00 PM EDT Larissa Khan en 6. Suicidal Behavior (Lifetime) No 5 8:00 PM Lela Leggett documented as of this encounter Medications at Time of Discharge acetaminophen (Tylenol) 325 MG tablet Take 3 tablets by mouth every 8 hours for 30 days, THEN 2 tablets every 4 hours as needed for pain. 268 tablet 12/21/2024 albuterol 108 (90 Base) MCG/ACT inhaler Inhale 2 puffs every 4 hours as needed for shortness of breath. aspirin 81 MG chewable tablet Chew 1 tablet daily. 30 tablet 12/22/2024 atorvastatin (Lipitor) 80 MG tablet Take 1 tablet by mouth nightly. 30 tablet 12/21/2024 cholecalciferol (Vitamin D3) 25 MCG (1000 UT) tablet Take 10 tablets by mouth daily. cyanocobalamin (Vitamin B-12) 500 MCG tablet Take 2 tablets by mouth daily. docusate sodium 100 MG capsule Take 100 mg by mouth 2 times a day. 20 capsule 12/21/2024 folic acid (Folvite) 1 MG tablet Take 1 tablet by mouth daily. metFORMIN (Glucophage) 500 MG tablet Take 1 tablet by mouth 2 times a day with meals. methocarbamol (Robaxin) 500 MG tablet Take 1 tablet by mouth 4 times a day. 120 tablet 12/21/2024 metoprolol tartrate (Lopressor) 25 MG tablet Take 1 tablet by mouth 2 times a day. 60 tablet 12/21/2024 Multiple Vitamin (multivitamin) tablet Take 1 tablet by mouth daily. naloxone (Narcan) 4 mg/0.1 mL nasal spray 1. Give 1 spray in nostril for no/slow breathing or cannot wake after opioid use 2. Call 911 3. Repeat in other nostril if symptoms continue 1 each 12/21/2024 NIFEdipine XL (Adalat CC) 30 MG 24 hr tablet Take 1 tablet by mouth daily. Do not crush, chew, or split. 30 tablet 12/22/2024 pregabalin (Lyrica) 50 MG capsule Take 1 capsule by mouth 2 times a day. QUEtiapine (SEROquel) 200 MG tablet Take 1 tablet by mouth nightly. rOPINIRole (Requip) 5 MG tablet Take 1 tablet by mouth nightly. sacubitril-valsar carrion (Entresto) 24-26 MG tablet Take 1 tablet by mouth 2 times a day. Tiotropium [place] Monohydrate (SPIRIVA HANDIHALER IN) Inhale 1 puff nightly. zonisamide (Zonegran) 100 MG capsule Take 1 capsule by mouth 3 times a day. oxyCODONE (Roxicodone) 5 MG immediate release tablet Take 1 tablet by mouth every 4 hours as needed for moderate pain for up to 3 days. 18 tablet 12/20/2024 acetaminophen (Tylenol) 325 MG tablet Take 3 tablets by mouth every 8 hours for 30 days, THEN 2 tablets every 4 hours as needed for pain. 100 tablet 12/21/2024 Acetaminophen 500 MG pack Take by mouth. atorvastatin (Lipitor) 40 MG tablet Take 1 tablet by mouth nightly. 5 documented as of this encounter Plan of Treatment Not on file documented as of this encounter Procedures Procedure Name Priority Date/Time Associated Diagnosis Comments XR CHEST 2 VIEWS Routine 12/13/2024 11:5 6 AM EDT Coronary artery disease involving e[place] coronary artery of [place] heart with angina pectoris (CMS/HCC) documented in this encounter Results * XR Chest 2 Views (12/13/2024 11:56 [...] Visit Diagnoses Diagnosis Coronary artery disease involving e[place] coronary artery of [place] heart with angina pectoris (CMS/HCC) documented in this encounter Additional Health Concerns Assessment Noted Time A fall risk assessment has been complete d for the patient 12/13/2024 11:24 AM EDT A Body Mass Index follow-up plan has been documented for the patient 12/13/2024 11:50 AM EDT documented as of this encounter Care Teams Animal Tech Relationship Specialty Start Date End Date Marge Woodard MD [address] [place] [id number] PCP - General 10/31/24 Shiela Vela APRN [address] [place] [address] Referring Physician 10/31/24 documented as of this encounter
--- OUTSIDE RECORDS SUMMARY | 2024-12-17 05:11 | XMS_ITS | Encounter Summary ---
Author Organization [facility] Address [address] [id number] Care Team Providers Care Ict Teacher Name Role Phone Marge Woodard MD Primary Care Provider [phone] Shiela Vela ASSISTANT EXECUTIVE HOUSEKEEPER Unavailable [phone] Reason for Referral * Consultation (Routine) - Authorized Specialty Diagnoses / Procedures Referred By Contac t Referred To Contact Cardiac Rehabilitation Diagnoses S/P CABG x 3 Boris Al MD [address] [address] Phone: tel: fax: Referral ID Status Reason Start Date Expiration Date V isits Requested Visits Authorized [id number] Authorized 12/21/2024 06/22/2026 1 1 * Consultation (Routine) - Authorized Specialty Diagnoses / Procedures Referred By Contviviane t Referred To Contact Cardiac Rehabilitation Diagnoses 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 Boris Al MD [address] [address] Phone: tel: fax: Professional [facility] [address] [facility], [address] [place] [address] Phone: tel: fax: Referral ID Status Reason Start Date Expiration Date V isits Requested Visits Authorized [id number] Authorized 12/17/2024 06/18/2026 1 1 Reason for Visit * Auth/Cert (Routine) Specialty Diagnoses / Procedures Referred By Angella t Referred To Contact Diagnoses 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 (CMS/HCC) 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 (CMS/HCC) [I25.119] Procedures ID CABG, ARTERIAL, SINGLE CABG, 2 OR MORE VESSELS Boris Al MD [address] [address] Phone: tel: fax: [facility] [address] [place] [address] Phone: tel: Referral ID Status Reason Start Date Expiration Date Visits Re quested Visits Authorized [id number] 1 1 Encounter Details Date Type Department Care Team (Latest Contact Info) Description 12/17/2024 5:11 AM EDT - 12/21/2024 12:01 PM EDT Hospital Encounter [facility] [address] [place] [id number] Boris Al MD [address] [address] Antonette Hernandez MD [address] [address] 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 (Primary Dx); Acute blood loss anemia; Cardiac volume overload; S/P CABG x 3 Discharge Disposition: Home or Self Care Social [...] money to buy more. Never true 12/19/19 Within the past 12 months, t he [...] any time in the past 12 m [facility], were you homeless or living in a half-way (including now)? No 12/18/2024 Utilities Answer Date Recorded In the past 12 months has th e [employer], gas, oil, or water [employer] threatened to shut off services in your home? No 12/18/2024 Comments No Sex and Gender Information Value Date Recorded Sex Assigned at Not on file Legal Sex Female 1:50 PM EDT Gender Identity Not on file Sexual Orientation Not on file documented as of this encounter Last Filed Vital Signs Vital Sign Reading Time Taken Comments Blood Pressure 116/73 12/21/2024 8:03 AM EDT Pulse 95 12/21/2024 8:03 AM EDT Temperature 36.4 C (97.6 F) 12/21/2024 8:03 AM EDT Respiratory Rate 17 12/21/2024 8:03 AM EDT Oxygen Saturation 94% 12/21/2024 8:03 AM EDT Inhaled Oxygen Concentration - - Weight 68.2 kg (150 lb 5.7 oz) 12/21/2024 5:00 A M EDT Height 160 cm (5' 2.99 ) 12/18/2024 12:57 PM EDT Body Mass Index 26.64 12/18/2024 12:57 PM EDT documented in this encounter Functional Status * Calculated C-SSRS Risk Score (Lifetime/Recent) Answer Date of Assessment Author No Risk Indicated 12/20/2024 8:00 AM EDT Lena Nicolas RN * Question Answer Date of Assessment Author 1. Wish to be (Past 1 Month) No 12/20/2024 8:00 AM EDT Lena Nicolas RN 2. Non-Specific Active Suici jorge Thoughts (Past 1 Month) No 12/20/2024 8:00 AM EDT Alka Nicolas RN 6. Suicidal Behavior (Lifetime) No 8:00 AM EDT Lena Nicolas RN documented as of this encounter Medications at [...] by mouth 2 times a day. Tiotropium Dorothy Monohydrate (SPIRIVA HANDIHALER IN) Inhale 1 puff nightly. zonisamide (Zonegran) 100 MG capsule Take 1 capsule by mouth 3 times a day. oxyCODONE (Roxicodone) 5 MG immediate release tablet Take 1 tablet by mouth every 4 hours as needed for moderate pain for up to 3 days. 18 tablet 12/20/2024 documented as of this encounter Miscellaneous Notes * Query Clarification Note - Shazia Newman APRN - 12/21/2024 12:01 PM EDT Physician Clarification Please clarify the documentation of Chronic obstructive pulmonary disease with (acute) exacerbation: [x]Chronic obstructive pulmonary disease without exacerbation []Chronic obstructive pulmonary disease with (acute) exacerbation remains a known condition for this patient and is further supported by (include additional documentation in the medical record) []Other explanation (please specify) This documentation will become part of the patient's medical record. * Progress Notes - Lena Short - 12/21/2024 12:01 PM EDT Inpatient Cardiac Rehab Assessment Patient Name: Beverley Antoine Today's Date: 12/21/2024 Subjective: Ms. Antoine qualifies for outpatient cardiac rehab due to recent CABG. I/R/P: Beverley Antoine qualifies for outpatient cardiac rehab. Referral entered to patients preferred location, [facility]. [facility] will contact Ms. Antoine to discuss and schedule. Cardiac Rehabilitation Program Referral 1. Participation in a Phase II cardiac rehabilitation program is recommended. Patient was informed about what cardiac rehabilitation has to offer and why it is beneficial. The plan of care for the rehabilitation program consists of risk factor modification, monitored and supervised exercise and assistance in the recovery process with ongoing education and support. Patient is patient interested incardiac rehab?: may be interested in attending a cardiac rehabilitation program. 2. Eligibility: CABG 3. Exceptions/exclusions: [facility] Exclusions: None 4. Referral: [facility] Referral: Patient will consider participating in a cardiac rehabilitation program. Patient was provided with contact information for the following program(s) for consideration: [facility], [place] - [phone]. 5. Information sent: Information Sent: Appropriate information will be sent to the receiving cardiac rehabilitation program.: * Clinician Note - Emily Blanco - 12/21/2024 11:17 AM EDT Physical Therapy Attempt Patient Name: Beverley Antoine Today's Date: 12/21/2024 Patient was attempted to be seen by physical therapy 12/21/2024 for PT Treatment however dischargingfrom hospital shortly. Discussed sternal precautions, walking program, posture with rollator and sizing of rollator. Beverley denied any further questions or concerns and is eager to get home and getback to walking around more. Written by Emily Blanco on 12/21/24 at 11:17 AM. * Nursing Note - Selin Bartlett - 12/21/2024 11:06 AM EDT Verbal/Written dc instructions reviewed with pt. Questions answered. Port deaccessed by bedside RN.PIV and telemetry removed. MTB to bring medication. Bedside RN informed. * [facility] - Selin Bartlett - 12/21/2024 10:25 AM EDT Images from the original note were not included. 798 Narcan Nasal [place]: Rescue Guide for Opioid Overdose Step 1 Check for signs of overdose. Think someone had opioid overdose? Shout their name and ask Are you OK? Try shaking them by the shoulders or rubbing the middle of the chest. Signs of overdose are: ? No response or does not wake up. ? Breathing is slow, odd, or has stopped. ? Center of the eye (pupil) is very small. If you see any of these signs, go to Step 2. Step 2 Give the medicine. 1. Lay the person flat on the back. 2. Get the Narcan nasal spray. Peel back the tab to remove the bottle. 3. Hold the bottle as shown. 4. Put your free hand behind the person?s neck. Gently lift to tilt the head back. 5. Place the nozzle inside one nostril until your fingers touch the nose. 6. Press the plunger with your thumb to spray. Then remove from the nostril. Step 3 Call 911 for help and watch the person. ? Call 911 for emergency help. ? Have the person lay on their side as shown. ? Look for a response. The person may wake up, breathe normally, or respond to touch or voice. ? If there is no response for 2-3 minutes after giving the spray, give another - if you have extra spray bottles. In that case, repeat Step 2 then move them back on to their side. ? You can repeat this every 2-3 minutes until help arrives or the person responds. ? Use this medicine only if you know or suspect the person has opioid overdose. ? Do not open the Narcan package until you need to use it. ? Only for use in the nose. * [facility] - Selin Bartlett - 12/21/2024 10:24 AM EDT Images from the original note were not included. [id number] Oxycodone IMPORTANT WARNING: Oxycodone may be habit-forming. Take oxycodone exactly as directed. Do not take more of it, take itmore often, or take it in a different way than directed by your doctor. While taking oxycodone, discuss with your healthcare provider your pain treatment goals, length of treatment, and other ways tomanage your pain. Tell your doctor if you or anyone in your family drinks or has ever drunk large amounts of alcohol, uses or has ever used street drugs, or has overused prescription medications, or has had an overdose, or if you have or have ever had depression or another mental illness. There is a greater risk that you will overuse oxycodone if you have or have ever had any of these conditions.Talk to your healthcare provider immediately and ask for guidance if you think that you have an opioid addiction or call the U.S. Substance Abuse and Mental Health Services Administration (SAMHSA) National Helpline at 2-892-559-BCNZ. Oxycodone may cause serious or life-threatening breathing problems, especially during the first 24 to 72 hours of your treatment and any time your dose is increased. Your doctor will monitor you carefully during your treatment. Tell your doctor if you have or have ever had slowed breathing or asthma. Your doctor will probably tell you not to take oxycodone. Also tell your doctor if you have or have ever had lung disease such as chronic obstructive pulmonary disease (COPD; a group of diseases that affect the lungs and airways), a head injury a brain tumor, or any condition that increases the amount of pressure in your brain. The risk that you will develop breathing problems may be higher if you are an older adult or are weak or malnourished due to disease. If you experience any of the following symptoms, call your doctor immediately or get emergency medical treatment: slowed breathing, long pauses between breaths, or shortness of breath. Do not allow anyone else to take your medication. Oxycodone may harm or cause to other peoplewho take your medication, especially children. Keep oxycodone in a safe place so that no one else can take it accidentally or on purpose. Be especially careful to keep oxycodone out of the reach of children. Keep track of how many capsules, tablets, or oral solution is left so you will know if any medication is missing. Taking certain other medications with oxycodone may increase the risk of serious or life-threatening breathing problems, sedation, or coma. Tell your doctor and pharmacist what other prescription andnonprescription medications, vitamins, nutritional supplements, and herbal products you are taking or plan to take. Your doctor may need to change the doses of your medication and will monitor you carefully. If you take oxycodone with other medications and you develop any of the following symptoms,call your doctor immediately or seek emergency medical care: unusual dizziness, lightheadedness, extreme sleepiness, slowed or difficult breathing, or unresponsiveness. Be sure that your caregiver orfamily members know which symptoms may be serious so they can call the doctor or emergency medical care if you are unable to seek treatment on your own. Drinking alcohol, taking prescription or nonprescription medications that contain alcohol, or usingstreet drugs during your treatment with oxycodone increases the risk that you will experience serious, life-threatening side effects. Do not drink alcohol, take prescription or nonprescription medications that contain alcohol, or use street drugs during your treatment. If you are taking the oxycodone extended-release tablets, swallow them whole; do not chew, break, divide, crush, or dissolve them. Do not presoak, lick or otherwise wet the tablet prior to placing inthe mouth. Swallow each tablet right after you put it in your mouth. If you swallow broken, chewed,crushed, or dissolved extended-release tablets, you may receive too much oxycodone at once instead of slowly over 12 hours. This may cause serious problems, including overdose and . Oxycodone comes as a regular solution (liquid) and as a concentrated solution that contains more oxycodone in each milliliter of solution. Be sure that you know whether your doctor has prescribed theregular or concentrated solution and the dose in milliliters that your doctor has prescribed. Use the dosing cup, oral syringe, or dropper provided with your medication to carefully measure the number of milliliters of solution that your doctor prescribed. Read the directions that come with your medication carefully and ask your doctor or pharmacist if you have any questions about how to measure your dose or how much medication you should take. You may experience serious or life threatening side effects if you take an oxycodone solution with a different concentration or if you take a different amount of medication than prescribed by your doctor. Store oxycodone in a safe place so that no one else can take it accidentally or on purpose. Be especially careful to keep oxycodone out of the reach of children. Keep track of how many tablets or capsules, or how much liquid is left so you will know if any medication is missing. Dispose of unwantedcapsules, tablets, extended-release tablets, extended-release capsules, and liquid properly according to instructions. (See STORAGE and DISPOSAL). Tell your doctor if you are or plan to become . If you take oxycodone regularly during your , your baby may experience life- threatening withdrawal symptoms after . Tellyour baby's doctor right away if your baby experiences any of the following symptoms: irritability, hyperactivity, abnormal sleep, high-pitched cry, uncontrollable shaking of a part of the body, vomiting, diarrhea, or failure to gain weight. Talk to your doctor about the risks of taking oxycodone. Your doctor or pharmacist will give you the carving machine operator's patient information sheet (Medication Guide) when you begin your treatment with oxycodone and each time you fill your prescription. Read theinformation carefully and ask your doctor or pharmacist if you have any questions. You can also visit the Food and Drug Administration (FDA) website (https://www.fda.gov/Drugs/DrugSafety/frw877024.htm) or the carving machine operator's website to obtain the Medication Guide. WHY is this medicine prescribed? Oxycodone immediate-release tablets, capsules, and oral solution are used to relieve severe, acute pain (pain that begins suddenly, has a specific cause, and is expected to go away when the cause of the pain is healed) in people who are expected to need an opioid pain medication and who cannot be treated with other pain medications. Oxycodone extended-release tablets and extended-release capsulesare used to relieve severe pain in people who are expected to need pain medication around the clockfor a long time and who cannot be treated with other medications. Oxycodone extended-release tablets and extended-release capsules should not be used to treat pain that can be controlled by medication that is taken as needed. Oxycodone concentrated solution should only be used to treat people who are tolerant (used to the effects of the medication) to opioid medications because they have taken this type of medication for at least one week. Oxycodone is in a class of medications called opiate (narcotic) analgesics. It works by changing the way the brain and nervous system respond to pain. Oxycodone is also available in combination with acetaminophen (Oxycet??, Percocet??, others) and aspirin (Percodan??). This monograph only includes information about the use of oxycodone alone. If you are taking an oxycodone combination product, be sure to read information about all the ingredientsin the product you are taking and ask your doctor or pharmacist for more information. HOW should this medicine be used? Oxycodone comes as a solution (liquid), a concentrated solution, a tablet, a capsule, an extended-release (long-acting) tablet (Oxycontin??), and an extended-release capsule (Xtampza ER??) to [facility]. The solution, concentrated solution, tablet, and capsule are taken usually with or without fo od every 4 to 6 hours, either as needed for pain or as regularly scheduled medications. The extended-release tablets (Oxycontin??) are taken every 12 hours with or without food. The extended-release capsules (Xtampza ER??) are taken every 12 hours with food; eat the same amount of food with each dose. Follow the directions on your prescription label carefully, and ask your doctor or pharmacist toexplain any part you do not understand. Take oxycodone exactly as directed. If you are taking the extended-release tablets (Oxycontin??), swallow the tablets one at a time with plenty of water. Swallow the tablet or right after putting it in your mouth. Do not presoak, wet, or lick the tablets before you put them in your mouth. Do not chew or crush extended-release tablets. If you have trouble swallowing extended-release capsules (Xtampza ER??), you can carefully open thecapsule and sprinkle the contents on soft foods such as applesauce, pudding, yogurt, ice cream, or jam, then consume the mixture immediately. Dispose of the empty capsule shells right away by flushing them down a toilet. Do not store the mixture for future use. If you have a feeding tube, the extended-release capsule contents can be poured into the tube. Ask your doctor how you should take the medication and follow these directions carefully. Your doctor may adjust your dose of oxycodone during your treatment, depending on how well your pain is controlled and on the side effects that you experience. Talk to your doctor about how you are feeling during your treatment with oxycodone. Tell your doctor if you feel that your pain is not controlled or if your pain increases, becomes worse, or if you have new pain or an increased sensitivityto pain during your treatment with oxycodone. Do not take more of it or take it more often than prescribed by your doctor. Do not stop taking oxycodone without talking to your doctor. If you stop taking oxycodone suddenly,you may experience withdrawal symptoms such as restlessness, watery eyes, runny nose, sneezing, yawning, sweating, chills, muscle or joint aches or pains, weakness, irritability, anxiety, depression,difficulty falling asleep or staying asleep, cramps, nausea, vomiting, diarrhea, loss of appetite, fast heartbeat, and fast breathing. Your doctor will probably decrease your dose gradually. Are there OTHER USES for this medicine? This medication may be prescribed for other uses; ask your doctor or pharmacist for more information. What SPECIAL PRECAUTIONS should I follow? Before taking oxycodone, ? tell your doctor and pharmacist if you are allergic to oxycodone, any other medications, or any of the ingredients in the oxycodone product you plan to take. Ask your pharmacist or check the Medication Guide for a list of the ingredients. ? tell your doctor or pharmacist if you are taking the following medications or have stopped takingthem within the past two weeks: isocarboxazid (Marplan??), linezolid (Zyvox??), methylene blue, phenelzine (Nardil??), selegiline (Emsam??, Zelapar??), or tranylcypromine (Parnate??). ? The following nonprescription or herbal products may interact with oxycodone: [place]'s wort andtryptophan. Be sure to let your doctor and pharmacist know that you are taking these medications before you start taking oxycodone. Do not start these medications while taking oxycodone without discussing it with your healthcare provider. ? tell your doctor if you have or have ever had any of the conditions mentioned in the IMPORTANT WARNING section, a blockage or narrowing of your stomach or intestines, or paralytic ileus (condition in which digested food does not move through the intestines). Your doctor may tell you not to take oxycodone. ? Also tell your doctor if you have or have ever had low blood pressure; seizures; adrenal insufficiency (condition in which the adrenal glands do not produce enough of certain hormones needed for important body functions); seizures; urethral stricture (blockage of the tube that allows urine to leave the body), problems urinating; or heart, kidney, liver, pancreas, thyroid, or gall bladder disease. If you will be taking the extended-release tablets or extended-release capsules, also tell your doctor if you have or have ever had difficulty swallowing, diverticulitis (condition in which small pouches form in the intestines and become swollen and infected), colon cancer (cancer that begins in the large intestine), or esophageal cancer (cancer that begins in the tube that connects the mouth and stomach). ? tell your doctor if you are . You should not breastfeed while you are taking oxycodone. Oxycodone can cause shallow breathing, difficulty or noisy breathing, confusion, more than usualsleepiness, trouble , or limpness in breastfed infants. ? you should know that this medication may decrease fertility in men and women. Talk to your doctorabout the risks of taking oxycodone. ? if you are having surgery, including dental surgery, tell the doctor or dentist that you are taking oxycodone. ? you should know that this medication may make you drowsy. Do not drive a car, operate heavy machinery, or participate in any other possibly dangerous activities until you know how this medication affects you. ? you should know that oxycodone may cause dizziness, lightheadedness, and fainting when you get uptoo quickly from a lying position. To help avoid this problem, get out of bed slowly, resting your feet on the floor for a few minutes before standing up. ? you should know that oxycodone may cause constipation. Talk to your doctor about changing your diet or using other medications to prevent or treat constipation while you are taking oxycodone. What SPECIAL DIETARY instructions should I follow? Unless your doctor tells you otherwise, continue your normal diet. What should I do IF I FORGET to take a dose? If you are taking oxycodone on a regular schedule, take the missed dose as soon as you remember it.However, if it is almost time for the next dose, skip the missed dose and continue your regular dosing schedule. Do not take a double dose to make up for a missed one. Do not take more than one dose of the extended- release tablets or capsules in 12 hours. What SIDE EFFECTS can this medicine cause? Some side effects can be serious. If you experience any of these symptoms or those mentioned in theIMPORTANT WARNING section, call your doctor immediately or get emergency medical help: ? changes in heartbeat ? agitation, hallucinations (seeing things or hearing voices that do not exist), fever, sweating, confusion, fast heartbeat, shivering, severe muscle stiffness or twitching, loss of coordination, or diarrhea ? nausea, vomiting, loss of appetite, weakness, or dizziness ? inability to get or keep an erection ? irregular menstruation ? decreased sexual desire ? chest pain ? rash; itching; hives; hoarseness; difficulty breathing or swallowing; or swelling of the face, mouth, tongue, lips, or throat ? swelling of the hands, feet, ankles, or lower legs ? seizures ? extreme drowsiness If you experience a serious side effect, you or your doctor may send a report to the Food and Drug Administration's (FDA) [facility] Adverse Event Reporting program online (https://www.fda.gov/Safety/MedWatch) or by phone ( ). Oxycodone may cause other side effects. Call your doctor if you have any unusual problems while youare taking this medication. What should I know about STORAGE and DISPOSAL of this medication? Keep this medication in the container it came in, tightly closed, and out of reach of children, andin a location that is not easily accessible by others, including visitors to the home. Store it at room temperature and away from light and excess heat and moisture (not in the bathroom). You must immediately dispose of any medication that is outdated or no longer needed through a medicine take-back program. If you do not have a take-back program nearby or one that you can access promptly, flush any medication that is outdated or no longer needed down the toilet so that others will not take it.Talk to your pharmacist about the proper disposal of your medication. Keep all medication out of sight and reach of children as many containers are not child-resistant. Always lock safety caps. Place the medication in a safe location - one that is up and away and out of their sight and reach. https://www.upandaway.org What should I do in case of OVERDOSE? In case of overdose, call the poison control helpline at . Information is also available online at https://www.poisonhelp.org/help. If the victim has collapsed, had a seizure, has trouble breathing, or can't be awakened, immediately call emergency services at 911. While taking oxycodone, you should talk to your doctor about having a rescue medication called naloxone readily available (e.g., home, office). Naloxone is used to reverse the life-threatening effects of an overdose. It works by blocking the effects of opiates to relieve dangerous symptoms caused by high levels of opiates in the blood. Your doctor may also prescribe you naloxone if you are livingin a household where there are small children or someone who has abused street or prescription drugs. You should make sure that you and your family members, caregivers, or the people who spend time with you know how to recognize an overdose, how to use naloxone, and what to do until emergency medical help arrives. Your doctor or pharmacist will show you and your family members how to use the medication. Ask your pharmacist for the instructions or visit the carving machine operator's website to get the instructions. If symptoms of an overdose occur, a caregiver or family member should give the first dose of naloxone, call 911 immediately, and stay with you and watch you closely until emergency medical help arrives.Your symptoms may return within a few minutes after you receive naloxone. If your symptoms return, the person should give you another dose of naloxone. Additional doses may be given every 2 to 3 minutes, if symptoms return before medical help arrives. Symptoms of overdose may include the following: ? difficulty breathing ? slowed or shallow breathing ? excessive sleepiness ? limp or weak muscles ? narrowing or widening of the pupils (dark [place] in the eye) ? cold, clammy skin ? unable to respond or wake up ? slowed heartbeat ? unusual snoring What OTHER INFORMATION should I know? Keep all appointments with your doctor. Your doctor may order certain lab tests to check your body's response to oxycodone. Before having any laboratory test (especially those that involve methylene blue), tell your doctor and the laboratory personnel that you are taking oxycodone. This prescription is not refillable. If you continue to have pain after you finish the oxycodone, call your doctor. Keep a written list of all of the prescription and nonprescription (fbql-cqg-ddiqyqs) medicines, vitamins, minerals, and dietary supplements you are taking. Bring this list with you each time you visit a doctor or if you are admitted to the hospital. You should carry the list with you in case of kristi rgencies. Brand Name(s): ? Oxaydo? Oxycontin?? ? Roxicodone?? ? Roxybond?? ? Xtampza?? ER ? Combunox?? (as a combination product containing Ibuprofen, Oxycodone)?? ? Oxycet?? (as a combination product containing Acetaminophen, Oxycodone) ? Percocet?? (as a combination product containing Acetaminophen, Oxycodone) ? Percodan?? (as a combination product containing Aspirin, Oxycodone) ? Roxicet?? (as a combination product containing Acetaminophen, Oxycodone)?? ? Roxilox?? (as a combination product containing Acetaminophen, Oxycodone)?? ? Roxiprin?? (as a combination product containing Aspirin, Oxycodone)?? ? Targiniq?? ER (as a combination product containing naloxone, oxycodone)?? ? Troxyca ER?? (as a combination product containing Naltrexone, Oxycodone)?? ? Tylox?? (as a combination product containing Acetaminophen, Oxycodone)?? ? Xartemis XR?? (as a combination product containing Acetaminophen, Oxycodone)?? also available generically ?? This branded product is no longer on the market. Generic alternatives may be available. This report on medications is for your information only, and is not considered individual patient advice. Because of the changing nature of drug information, please consult your physician or pharmacist about specific clinical use. The [employer] represents that the information provided hereunder was formulated with a reasonable standard of care, and in conformity with professional standards in the field. [employer] makes no representations or warranties, express or implied, including, but not limited to, any implied warranty of merchantability and/or fitness for a particular purpose, with respect to such information and specifically disclaims all such warranties. Users are advised that decisions regarding drug therapy are complex medical decisions requiring the independent, informed decision of an appropriate health childcare center administrator, and the information is provided for informational purposes only. The entire monograph for a drug should be reviewed for a thorough understanding of the drug's actions, uses and side effects. The [employer] does not endorse or recommend the use of any drug.The information is not a substitute for medical care. AHFS?? Patient Medication Information?. ?? Copyright, 2023. [employer]??, [address], [address], [place], [place]. All Rights Reserved. Duplication for commercial use must be authorized by [facility]. Selected Revisions: June 13, 2024. AHFS?? Patient Medication Information?. ?? Copyright, 2024 * Monytatianna MalikHITESH - Selin Bartlett - 12/21/2024 10:24 AM EDT Images from the original note were not included. [id number] Nifedipine WHY is this medicine prescribed? Nifedipine is used to treat high blood pressure and to control angina (chest pain). Nifedipine is in a class of medications called calcium-channel blockers. It lowers blood pressure by relaxing the blood vessels so the heart does not have to pump as hard. It controls chest pain by increasing the supply of blood and oxygen to the heart. High blood pressure is a common condition and when not treated, can cause damage to the brain, heart, blood vessels, kidneys and other parts of the body. Damage to these organs may cause heart disease, a heart attack, heart failure, stroke, kidney failure, loss of vision, and other problems. In addition to taking medication, making lifestyle changes will also help to control your blood pressure. These changes include eating a diet that is low in fat and salt, maintaining a healthy weight, exercising at least 30 minutes most days, not smoking, and using alcohol in moderation. HOW should this medicine be used? Nifedipine comes as a capsule and an extended-release (long-acting) tablet to take by mouth. The capsule is usually taken three or four times a day. The extended-release tablet should be taken once daily on an empty stomach, either 1 hour before or 2 hours after a meal. To help you remember to takenifedipine, take it at around the same time(s) every day. Follow the directions on your prescription label carefully, and ask your doctor or pharmacist to explain any part you do not understand. Takenifedipine exactly as directed. Do not take more or less of it or take it more often than prescribed by your doctor. Swallow the extended-release tablets whole; do not split, chew, or crush them. Your doctor will probably start you on a low dose of nifedipine and gradually increase your dose, generally once every 7 to 14 days. If taken regularly, nifedipine controls chest pain, but it does not stop chest pain once it starts.Your doctor may prescribe a different medication to take when you have chest pain. Nifedipine controls high blood pressure and chest pain (angina) but does not cure them. Continue totake nifedipine even if you feel well. Do not stop taking nifedipine without talking to your doctor. Your doctor will probably decrease your dose gradually. Are there OTHER USES for this medicine? Nifedipine is also used sometimes to treat labor and Raynaud's syndrome. Talk to your doctor about the possible risks of using this medication for your condition. This medication is sometimes prescribed for other uses; ask your doctor or pharmacist for more information. What SPECIAL PRECAUTIONS should I follow? Before taking nifedipine, ? tell your doctor and pharmacist if you are allergic to nifedipine, any other medications, or any of the ingredients in nifedipine. Ask your pharmacist for a list of the ingredients. ? some medications should not be taken with nifedipine. Other medications may cause dosing changes or extra monitoring when taken with nifedipine. Make sure you have discussed any medications you arecurrently taking or plan to take before starting nifedipine with your doctor and pharmacist. Beforestarting, stopping, or changing any medications while taking nifedipine, please get the advice of your doctor or pharmacist.. ? the following nonprescription or herbal products may interact with nifedipine: [place]'s wort; cimetidine (Tagamet). Be sure to let your doctor and pharmacist know that you are taking these medications before you start taking nifedipine. Do not start any of these medications while taking nifedipine without discussing with your healthcare provider. ? tell your doctor if you have or have ever had a narrowing or blockage of your digestive system orany other condition that causes food to move through your digestive system more slowly; or heart, liver, or kidney disease. Also tell your doctor if you have had a myocardial infarction (AK) within the last 2 weeks. ? tell your doctor if you are , plan to become , or are breast- feeding. If you become while taking nifedipine, call your doctor. ? talk to your doctor about the safe use of nifedipine capsules if you are 65 years of age or older. Older adults should not usually take nifedipine capsules because they are not as safe as other medications that can be used to treat the same condition. ? if you are having surgery, including dental surgery, tell your doctor or dentist that you are taking nifedipine. ? ask your doctor about the safe use of alcoholic beverages while you are taking nifedipine. Alcohol can make the side effects from nifedipine worse. What SPECIAL DIETARY instructions should I follow? Do not drink grapefruit juice or eat grapefruit 3 days before and while taking nifedipine. If your doctor prescribes a low-salt or low-sodium diet, follow these directions carefully. What should I do IF I FORGET to take a dose? Take the missed dose as soon as you remember it. However, if it is almost time for the next dose, skip the missed dose and continue your regular dosing schedule. Do not take a double dose to make up for a missed one. What SIDE EFFECTS can this medicine cause? Some side effects can be serious. If you experience any of the following symptoms, call your doctorimmediately or get emergency medical treatment: ? swelling of the face, eyes, lips, tongue, hands, arms, feet, ankles, or lower legs ? difficulty breathing or swallowing ? fainting ? rash ? yellowing of the skin or eyes ? increase in frequency or severity of chest pain (angina) If you experience a serious side effect, you or your doctor may send a report to the Food and Drug Administration's (FDA) MedWatch Adverse Event Reporting program online (https://www.fda.gov/Safety/MedWatch) or by phone ( ). What should I know about STORAGE and DISPOSAL of this medication? Keep this medication in the container it came in, tightly closed, and out of reach of children. Store it at room temperature, away from light, and away from excess heat and moisture (not in the bathroom). Keep all medication out of sight and reach of children as many containers are not child-resistant. Always lock safety caps. Place the medication in a safe location - one that is up and away and out of their sight and reach. https://www.upandaway.org Dispose of unneeded medications in a way so that pets, children, and other people cannot take them.Do not flush this medication down the toilet. Use a medicine take-back program. Talk to your pharmacist about take-back programs in your community. Visit the FDA's Safe Disposal of Medicines website h ttps://goo.gl/c4Rm4p for more information. What should I do in case of OVERDOSE? In case of overdose, call the poison control helpline at . Information is also available online at https://www.poisonhelp.org/help. If the victim has collapsed, had a seizure, has trouble breathing, or can't be awakened, immediately call emergency services at 911. Symptoms of overdose may include: ? dizziness ? fast heartbeat ? flushing ? nervousness ? nausea ? vomiting ? swelling of the hands, feet, ankles, or lower legs ? blurred vision ? fainting What OTHER INFORMATION should I know? Keep all appointments with your doctor and the laboratory. Your blood pressure should be checked regularly to determine your response to nifedipine. If you are taking certain extended-release tablets (Afeditab CR, Procardia XL), you may notice something that looks like a tablet in your stool. This is just the empty tablet shell, and this does notmean that you did not get your complete dose of medication. Do not let anyone else take your medication. Ask your pharmacist any questions you have about refilling your prescription. Keep a written list of all of the prescription and nonprescription (tzgf-drf-spukugu) medicines, vitamins, minerals, and dietary supplements you are taking. Bring this list with you each time you visit a doctor or if you are admitted to the hospital. You should carry the list with you in case of kristi rgencies. Brand Name(s): ? Adalat? Adalat?? CC ? Afeditab?? CR ? Nifedical?? XL ? Nifeditab?? CR?? ? Procardia? Procardia?? XL also available generically ?? This branded product is no longer on the market. Generic alternatives may be available. This report on medications is for your information only, and is not considered individual patient advice. Because of the changing nature of drug information, please consult your physician or pharmacist about specific clinical use. The [employer] represents that the information provided hereunder was formulated with a reasonable standard of care, and in conformity with professional standards in the field. [employer] makes no representations or warranties, express or implied, including, but not limited to, any implied warranty of merchantability and/or fitness for a particular purpose, with respect to such information and specifically disclaims all such warranties. Users are advised that decisions regarding drug therapy are complex medical decisions requiring the independent, informed decision of an appropriate health childcare center administrator, and the information is provided for informational purposes only. The entire monograph for a drug should be reviewed for a thorough understanding of the drug's actions, uses and side effects. The [employer] does not endorse or recommend the use of any drug.The information is not a substitute for medical care. AHFS?? Patient Medication Information?. ?? Copyright, 2023. The [employer]??, [address], [address], [place], [place]. All Rights Reserved. Duplication for commercial use must be authorized by [facility]. Selected Revisions: March 13, 2017. AHFS?? Patient Medication Information?. ?? Copyright, 2024 * Jeff Monaco - Selin Bartlett - 12/21/2024 10:24 AM EDT Images from the original note were not included. [id number] Metoprolol WHY is this medicine prescribed? Metoprolol is used alone or in combination with other medications to treat high blood pressure. It also is used to treat chronic (long-term) angina (chest pain). Metoprolol is also used to improve survival after a heart attack. Metoprolol also is used in combination with other medications to treat heart failure. Metoprolol is in a class of medications called beta blockers. It works by relaxing blood vessels and slowing heart rate to improve blood flow and decrease blood pressure. High blood pressure is a common condition and when not treated, can cause damage to the brain, heart, blood vessels, kidneys and other parts of the body. Damage to these organs may cause heart disease, a heart attack, heart failure, stroke, kidney failure, loss of vision, and other problems. In addition to taking medication, making lifestyle changes will also help to control your blood pressure. These changes include eating a diet that is low in fat and salt, maintaining a healthy weight, exercising at least 30 minutes most days, not smoking, and using alcohol in moderation. HOW should this medicine be used? Metoprolol comes as a tablet, an extended-release (long-acting) tablet, and an extended-release capsule to take by mouth. The regular tablet is usually taken once or twice a day with meals or immediately after meals. The extended-release tablet and extended-release capsule are usually taken once a day. To help you remember to take metoprolol, take it around the same time(s) every day. Follow the directions on your prescription label carefully, and ask your doctor or pharmacist to explain any part you do not understand. Take metoprolol exactly as directed. Do not take more or less of it or take it more often than prescribed by your doctor. The extended-release tablet may be split. Swallow the whole or half extended- release tablets whole;do not chew or crush them. Swallow the extended-release capsules whole; do not split, chew, or crush them. If you are unable to swallow the capsules, you may open the capsule and sprinkle the contents over a spoonful of soft food, such as applesauce, pudding, or yogurt and swallow the mixture immediately. Do not swallow the mixture more than 60 minutes after you sprinkle the contents of the capsule. Your doctor may start you on a low dose of metoprolol and gradually increase your dose. Metoprolol helps to control your condition but will not cure it. Continue to take metoprolol even if you feel well. Do not stop taking metoprolol without talking to your doctor. If you suddenly stop taking metoprolol you may experience serious heart problems such as severe chest pain, a heart attack, or an irregular heartbeat. Your doctor will probably want to decrease your dose gradually over 1 to 2 weeks and will monitor you closely. Are there OTHER USES for this medicine? Metoprolol is also used sometimes to treat certain types of irregular heartbeats. Talk to your doctor about the possible risks of using this medication for your condition. This medication may be prescribed for other uses; ask your doctor or pharmacist for more information. What SPECIAL PRECAUTIONS should I follow? Before taking metoprolol, ? tell your doctor and pharmacist if you are allergic to metoprolol, any other medications, or any of the ingredients in metoprolol tablets, extended-release tablets, or extended-release capsules. Ask your pharmacist for a list of the ingredients. ? tell your doctor and pharmacist what prescription and nonprescription medications, vitamins, nutritional supplements, and herbal products you are taking or plan to take. Your doctor may need to change the doses of your medications or monitor you carefully for side effects. ? tell your doctor if you have a slow or irregular heartbeat or heart failure. Your doctor may tellyou not to take metoprolol. ? tell your doctor if you have or have ever had asthma or other lung diseases; problems with blood circulation; pheochromocytoma (a tumor that develops on a gland near the kidneys and may cause high blood pressure and fast heartbeat); heart or liver disease;diabetes; or hyperthyroidism (an overactive thyroid gland). Also tell your doctor if you have ever had a serious allergic reaction to a food or any other substance. ? tell your doctor if you are , plan to become , or are . If you become while taking metoprolol, call your doctor. ? if you are having surgery, including dental surgery, tell the doctor or dentist that you are taking metoprolol. ? you should know that metoprolol may make you drowsy. Do not drive a car or operate machinery until you know how this medication affects you. ? do not drink any alcoholic drinks or take any prescription or nonprescription medications that contain alcohol if you are taking metoprolol extended-release capsules. Ask your doctor or pharmacist if you do not know if a medication that you plan to take contains alcohol. ? you should know that metoprolol may increase the risk of hypoglycemia (low blood sugar) and prevent the warning signs and symptoms that would tell you that your blood sugar is low. Let your doctor know if you are unable to eat or drink normally or are vomiting while you are taking metoprolol. Youshould know the symptoms of low blood sugar and what to do if you have these symptoms. ? you should know that if you have allergic reactions to different substances, your reactions may be worse while you are using metoprolol, and your allergic reactions may not respond to the usual doses of injectable epinephrine. What SPECIAL DIETARY instructions should I follow? IUnless your doctor tells you otherwise, continue your normal diet. What should I do IF I FORGET to take a dose? Skip the missed dose and continue your regular dosing schedule. Do not take a double dose to make up for a missed one. What SIDE EFFECTS can this medicine cause? Some side effects can be serious. The following symptoms are uncommon, but if you experience any ofthem, call your doctor immediately: ? shortness of breath or difficulty breathing ? wheezing ? swelling of the hands, feet, ankles, or lower legs ? weight gain ? fainting ? rapid, pounding, or irregular heartbeat Metoprolol may cause other side effects. Call your doctor if you have any unusual problems while taking this medication. If you experience a serious side effect, you or your doctor may send a report to the Food and Drug Administration's (FDA) [employer] Adverse Event Reporting program online (https://www.fda.gov/Safety/MedWatch) or by phone ( ). What should I know about STORAGE and DISPOSAL of this medication? Keep this medication in the container it came in, tightly closed, and out of reach of children. Store it at room temperature and away from excess heat and moisture (not in the bathroom). Keep all medication out of sight and reach of children as many containers are not child-resistant. Always lock safety caps. Place the medication in a safe location - one that is up and away and out of their sight and reach. https://www.[employer].org Dispose of unneeded medications in a way so that pets, children, and other people cannot take them.Do not flush this medication down the toilet. Use a medicine take-back program. Talk to your pharmacist about take-back programs in your community. Visit the FDA's Safe Disposal of Medicines website h ttps://goo.gl/c4Rm4p for more information. What should I do in case of OVERDOSE? In case of overdose, call the poison control helpline at . Information is also available online at https://www.poisonhelp.org/help. If the victim has collapsed, had a seizure, has trouble breathing, or can't be awakened, immediately call emergency services at 911. Symptoms of overdose may include the following: ? nausea ? vomiting ? decreased consciousness or loss of consciousness (coma) ? irregular, fast, or slow heartbeat ? chest pain ? dizziness ? fatigue or weakness ? fainting ? difficulty breathing ? cough or wheezing ? swelling of the hands, feet, ankles, or lower legs What OTHER INFORMATION should I know? Keep all appointments with your doctor. Your blood pressure should be checked regularly to determine your response to metoprolol. Your doctor may ask you to check your pulse (heart rate). Ask your pharmacist or doctor to teach you how to take your pulse. If your pulse is faster or slower than it should be, call your doctor. Do not let anyone else take your medication. Ask your pharmacist any questions you have about refilling your prescription. Keep a written list of all of the prescription and nonprescription (dbnb-kkp-qdhjzng) medicines, vitamins, minerals, and dietary supplements you are taking. Bring this list with you each time you visit a doctor or if you are admitted to the hospital. You should carry the list with you in case of kristi rgencies. Brand Name(s): ? Angelinaargo Diamanteinkle?? ? Lopressor?? ? Toprol? Toprol?? XL ? Dutoprol?? (as a combination product containing Metoprolol, Hydrochlorothiazide)?? ? Lopressidone?? (as a combination product containing Chlorthalidone, Metoprolol)?? ? Lopressor?? HCT (as a combination product containing Metoprolol, Hydrochlorothiazide) also available generically ?? This branded product is no longer on the market. Generic alternatives may be available. This report on medications is for your information only, and is not considered individual patient advice. Because of the changing nature of drug information, please consult your physician or pharmacist about specific clinical use. The [employer] represents that the information provided hereunder was formulated with a reasonable standard of care, and in conformity with professional standards in the field. [employer] makes no representations or warranties, express or implied, including, but not limited to, any implied warranty of merchantability and/or fitness for a particular purpose, with respect to such information and specifically disclaims all such warranties. Users are advised that decisions regarding drug therapy are complex medical decisions requiring the independent, informed decision of an appropriate health childcare center administrator, and the information is provided for informational purposes only. The entire monograph for a drug should be reviewed for a thorough understanding of the drug's actions, uses and side effects. The [employer] does not endorse or recommend the use of any drug.The information is not a substitute for medical care. AHFS?? Patient Medication Information?. ?? Copyright, 2023. [employer]??, [address], [address], [place], [place]. All Rights Reserved. Duplication for commercial use must be authorized by [facility]. Selected Revisions: February 11, 2023. AHFS?? Patient Medication Information?. ?? Copyright, 2024 * Krames OnFHSelin Bustos K - 12/21/2024 10:24 AM EDT Images from the original note were not included. [id number] Methocarbamol WHY is this medicine prescribed? Methocarbamol is used with rest, physical therapy, and other measures to relax muscles and relieve pain and discomfort caused by strains, sprains, and other muscle injuries. Methocarbamol is in a class of medications called muscle relaxants. It works by slowing activity in the nervous system to allow the body to relax HOW should this medicine be used? Methocarbamol comes as a tablet to take by mouth. It usually is taken four times a day at first, then it may be changed to three to six times a day. Follow the directions on your prescription label carefully, and ask your doctor or pharmacist to explain any part you do not understand. Take methocarbamol exactly as directed. Do not take more or less of it or take it more often than prescribed by your doctor. Are there OTHER USES for this medicine? This medication may be prescribed for other uses. Ask your doctor or pharmacist for more information. What SPECIAL PRECAUTIONS should I follow? Before taking methocarbamol, ? tell your doctor and pharmacist if you are allergic to methocarbamol, any other medications or any of the ingredients in methocarbamol tablets. Ask your doctor or pharmacist for a list of the ingredients. ? tell your doctor and pharmacist what prescription and nonprescription medications, vitamins, nutritional supplements, and herbal products you are taking or plan to take while taking methocarbamol. Your doctor may need to change the doses of your medications or monitor you carefully for side effects. ? tell your doctor if you are , plan to become , or are breast- feeding. If you become while taking methocarbamol, call your doctor. ? talk to your doctor about the risks and benefits of taking methocarbamol if you are 65 years of age or older. Older adults should not usually take methocarbamol because it is not as safe or as effective as other medications that can be used to treat the same condition. ? you should know that this medication may make you drowsy. Do not drive a car or operate machineryuntil you know how methocarbamol affects you. ? talk to your doctor about the safe use of alcohol during your treatment with this medication. Alcohol can make the side effects of methocarbamol worse. What SPECIAL DIETARY instructions should I follow? Unless your doctor tells you otherwise, continue your normal diet. What should I do IF I FORGET to take a dose? Take the missed dose as soon as you remember it. However, if it is almost time for the next dose, skip the missed dose and continue your regular dosing schedule. Do not take a double dose to make up for a missed one. What SIDE EFFECTS can this medicine cause? If you experience either of the following symptoms, call your doctor immediately: ? rash ? itching Methocarbamol may cause other side effects. Call your doctor if you have any unusual problems whileyou are taking this medication. If you experience a serious side effect, you or your doctor may send a report to the Food and Drug Administration's (FDA) MedWatch Adverse Event Reporting program online (https://www.fda.gov/Safety/MedWatch) or by phone ( ). What should I know about STORAGE and DISPOSAL of this medication? Keep this medication in the container it came in, tightly closed, and out of reach of children. Store it at room temperature and away from excess heat and moisture (not in the bathroom). Dispose of unneeded medications in a way so that pets, children, and other people cannot take them.Do not flush this medication down the toilet. Use a medicine take-back program. Talk to your pharmacist about take-back programs in your community. Visit the FDA's Safe Disposal of Medicines website h ttps://goo.gl/c4Rm4p for more information. Keep all medication out of sight and reach of children as many containers are not child-resistant. Always lock safety caps. Place the medication in a safe location - one that is up and away and out of their sight and reach. https://www.upandaway.org What should I do in case of OVERDOSE? In case of overdose, call the poison control helpline at . Information is also available online at https://www.poisonhelp.org/help. If the victim has collapsed, had a seizure, has trouble breathing, or can't be awakened, immediately call emergency services at 911. What OTHER INFORMATION should I know? Keep all appointments with your doctor. Do not let anyone else take your medication. Ask your pharmacist any questions you have about refilling your prescription. Keep a written list of all of the prescription and nonprescription (mdnv-cwz-buytvya) medicines, vitamins, minerals, and dietary supplements you are taking. Bring this list with you each time you visit a doctor or if you are admitted to the hospital. You should carry the list with you in case of kristi rgencies. Brand Name(s): ? Robaxin?? also available generically This report on medications is for your information only, and is not considered individual patient advice. Because of the changing nature of drug information, please consult your physician or pharmacist about specific clinical use. The [employer] represents that the information provided hereunder was formulated with a reasonable standard of care, and in conformity with professional standards in the field. [employer] makes no representations or warranties, express or implied, including, but not limited to, any implied warranty of merchantability and/or fitness for a particular purpose, with respect to such information and specifically disclaims all such warranties. Users are advised that decisions regarding drug therapy are complex medical decisions requiring the independent, informed decision of an appropriate health childcare center administrator, and the information is provided for informational purposes only. The entire monograph for a drug should be reviewed for a thorough understanding of the drug's actions, uses and side effects. The [employer] does not endorse or recommend the use of any drug.The information is not a substitute for medical care. AHFS?? Patient Medication Information?. ?? Copyright, 2023. [employer]??, [address], [address], [place], [place]. All Rights Reserved. Duplication for commercial use must be authorized by [facility]. Selected Revisions: January 11, 2017. AHFS?? Patient Medication Information?. ?? Copyright, 2024 * Jeff CheliHITESH - Selin Bartlett - 12/21/2024 10:24 AM EDT Images from the original note were not included. [id number] Stool Softeners WHY is this medicine prescribed? Stool softeners are used on a short-term basis to relieve constipation by people who should avoid straining during bowel movements because of heart conditions, hemorrhoids, and other problems. They work by softening stools to make them easier to pass. HOW should this medicine be used? Stool softeners come as a capsule, tablet, liquid, and syrup to take by mouth. A stool softener usually is taken at bedtime. Follow the directions on the package or your prescription label carefully,and ask your doctor or pharmacist to explain any part you do not understand. Take stool softeners exactly as directed. Do not take more or less of it or take it more often than prescribed by your doctor. Swallow the docusate capsules whole; do not split, chew, or crush them. Take capsules and tablets with a full glass of water. The liquid comes with a specially marked dropper for measuring the dose. Ask your pharmacist to show you how to use it if you have difficulty. Mix the liquid (not the syrup) with 4 ounces (120 milliliters) of milk, fruit juice, or formula to mask its bitter taste. One to three days of regular use usually are needed for this medicine to take effect. Do not take stool softeners for more than 1 week unless your doctor directs you to. If sudden changes in bowel habits last longer than 2 weeks or if your stools are still hard after you have taken this medicine for 1 week, call your doctor. Are there OTHER USES for this medicine? This medication may be prescribed for other uses; ask your doctor or pharmacist for more information. What SPECIAL PRECAUTIONS should I follow? Before taking stool softeners, ? tell your doctor and pharmacist if you are allergic to any stool softeners, any other medications, or to any of the ingredients in the stool softeners, Ask your pharmacist for a list of the ingredients. ? tell your doctor and pharmacist what prescription and nonprescription medications, vitamins, nutritional supplements, and herbal products you are taking or plan to take while taking stool softeners. Your doctor may need to change the doses of your medications or monitor you carefully for side effects. ? the following nonprescription product may interact with stool softeners: mineral oil. Be sure to let your doctor and pharmacist know that you are taking this medication before you start taking stool softeners. Do not start any of this medication while taking stool softeners without discussing with your healthcare provider. ? tell your doctor if you are , plan to become , or are . If you become while taking stool softeners, call your doctor. What should I do IF I FORGET to take a dose? This medication usually is taken as needed. If your doctor has told you to take stool softeners regularly, take the missed dose as soon as you remember it. However, if it is almost time for the next dose, skip the missed dose and continue your regular dosing schedule. Do not take a double dose to make up for a missed one. What SIDE EFFECTS can this medicine cause? Some side effects can be serious. If you experience any of the following symptoms, call your doctorimmediately: ? rash ? hives ? difficulty breathing or swallowing ? fever ? vomiting ? stomach pain If you experience a serious side effect, you or your doctor may send a report to the Food and Drug Administration's (FDA) MedWatch Adverse Event Reporting program online (https://www.fda.gov/Safety/MedWatch) or by phone ( ). What should I know about STORAGE and DISPOSAL of this medication? Keep this medication in the container it came in, tightly closed, and out of reach of children. Store it at room temperature and away from excess heat and moisture (not in the bathroom). Keep all medication out of sight and reach of children as many containers are not child-resistant. Always lock safety caps. Place the medication in a safe location - one that is up and away and out of their sight and reach. https://www.upandaway.org Dispose of unneeded medications in a way so that pets, children, and other people cannot take them.Do not flush this medication down the toilet. Use a medicine take-back program. Talk to your pharmacist about take-back programs in your community. Visit the FDA's Safe Disposal of Medicines website h ttps://goo.gl/c4Rm4p for more information. What OTHER INFORMATION should I know? Ask your pharmacist any questions you have about taking this medicine. Keep a written list of all of the prescription and nonprescription (fxzo-xlp-xwfyerq) medicines, vitamins, minerals, and dietary supplements you are taking. Bring this list with you each time you visit a doctor or if you are admitted to the hospital. You should carry the list with you in case of kristi rgencies. Brand Name(s): ? Colace?? ? Correctol Soft Gels?? ? Diocto?? ? Ex-Lax Stool Softener?? ? Fleet Sof-Lax?? ? Velazquez' Liqui-Gels?? ? Surfak?? ? Correctol 50 Plus?? (as a combination product containing Docusate, Sennosides) ? Ex-Lax Gentle Strength?? (as a combination product containing Docusate, Sennosides) ? Gentlax S?? (as a combination product containing Docusate, Sennosides) ? Paige-Colace?? (as a combination product containing Docusate, Sennosides) ? Senokot S?? (as a combination product containing Docusate, Sennosides) also available generically dioctyl calcium sulfosuccinate, dioctyl sodium sulfosuccinate, docusate calcium, docusate sodium, RISHI, DSS This report on medications is for your information only, and is not considered individual patient advice. Because of the changing nature of drug information, please consult your physician or pharmacist about specific clinical use. The [employer] represents that the information provided hereunder was formulated with a reasonable standard of care, and in conformity with professional standards in the field. [employer] makes no representations or warranties, express or implied, including, but not limited to, any implied warranty of merchantability and/or fitness for a particular purpose, with respect to such information and specifically disclaims all such warranties. Users are advised that decisions regarding drug therapy are complex medical decisions requiring the independent, informed decision of an appropriate health childcare center administrator, and the information is provided for informational purposes only. The entire monograph for a drug should be reviewed for a thorough understanding of the drug's actions, uses and side effects. The [employer] does not endorse or recommend the use of any drug.The information is not a substitute for medical care. AHFS?? Patient Medication Information?. ?? Copyright, 2023. [employer]??, [address], [address], [place], [place]. All Rights Reserved. Duplication for commercial use must be authorized by [facility]. Selected Revisions: November 17, 2023. AHFS?? Patient Medication Information?. ?? Copyright, 2024 * Discharge Summary - Andrew Paulson PA - 12/21/2024 10:24 AM EDT Undergo yet actually discharge Hallie ankle over 221 yes I put in this morning I have not heard back he needs follow-up lactic is aortic arch aneurysm or I will see is going to come home office if he met she has been rounded resident need only discharge her Hospitalization Admit Date/Time: 12/17/2024 5:11 AM Admitting Attending: Boris Al Discharge Date: 12-21-24 Discharge Attending Physician: Boris Al MD PCP name and Address: Marge Woodard MD [address] [place] [address] Referring provider name and address: No referring provider defined for this encounter. Chief Concern, Brief History of Present Illness, and Hospital Course Beverley Antoine is a 59 y.o. female referred to us in consultation by Dr. Augustin Fernandez in regards to CAD. Ms. Antoine has a medical Hx that includes Stage IV SCC of the lung where she has completed chemo/rads after Dx in 2020, DM II, epilepsy, COPD, bipolar, and tobacco abuse disorder. Operative course was non-complicated. Following the procedure, patient was taken to the CVICU whereCCM was consulted for ongoing critical care management. Post- operative course was complicated by post operative nausea which resolved. Otherwise, patient recovered well. Currently, patient is maintaining sinus rhythm. Pain is well controlled with PRN analgesics. Patient is able to ambulate well without assistance. Patient is tolerating a regular diet. UOP is appropriate and bowel function has returned post-operatively. At this time, patient is hemodynamically stable and appropriate for discharge. Surgeries and Procedures Median sternotomy, coronary artery bypass grafting x3, endoscopic vein harvest - left lower extremity -greater saphenous. -Vein from the ascending aorta to obtuse marginal coronary artery -Vein from the ascending aorta to the distal right coronary artery -Left internal mammary artery skeletonized in Situ to the left anterior descending coronary artery. ( 2 vein grafts, 1 arterial graft, endoscopic vein harvest ) Date: 12/17/24 Medication List PAUSE taking these medications sacubitril-valsartan 24-26 MG tablet Wait to take this until your doctor or other care provider tells you to start again. Commonly known as: Entresto Take 1 tablet by mouth 2 times a day. .. acetaminophen 325 MG tablet Commonly known as: Tylenol Take 3 tablets by mouth every 8 hours for 30 days, THEN 2 tablets every 4 hours as needed for pain. Start taking on: December 21, 2024 albuterol 108 (90 Base) MCG/ACT inhaler Inhale 2 puffs every 4 hours as needed for shortness of breath. aspirin 81 MG chewable tablet Chew 1 tablet daily. Start taking on: December 22, 2024 atorvastatin 80 MG tablet Commonly known as: Lipitor Take 1 tablet by mouth nightly. cholecalciferol 25 MCG (1000 UT) tablet Commonly known as: Vitamin D3 Take 10 tablets by mouth daily. cyanocobalamin 500 MCG tablet Commonly known as: Vitamin B-12 Take 2 tablets by mouth daily. DSS 100 MG capsule Take 100 mg by mouth 2 times a day. folic acid 1 MG tablet Commonly known as: Folvite Take 1 tablet by mouth daily. metFORMIN 500 MG tablet Commonly known as: Glucophage Take 1 tablet by mouth 2 times a day with meals. methocarbamol 500 MG tablet Commonly known as: Robaxin Take 1 tablet by mouth 4 times a day. metoprolol tartrate 25 MG tablet Commonly known as: Lopressor Take 1 tablet by mouth 2 times a day. multivitamin tablet Take 1 tablet by mouth daily. naloxone 4 mg/0.1 mL nasal spray Commonly known as: Narcan 1. Give 1 spray in nostril for no/slow breathing or cannot wake after opioid use 2. Call 911 3. Repeat in other nostril if symptoms continue NIFEdipine CC 30 MG 24 hr tablet Commonly known as: Adalat CC Take 1 tablet by mouth daily. Do not crush, chew, or split. Start taking on: December 22, 2024 oxyCODONE 5 MG immediate release tablet Commonly known as: Roxicodone Take 1 tablet by mouth every 4 hours as needed for moderate pain for up to 3 days. pregabalin 50 MG capsule Commonly known as: Lyrica Take 1 capsule by mouth 2 times a day. QUEtiapine 200 MG tablet Commonly known as: SEROquel Take 1 tablet by mouth nightly. rOPINIRole 5 MG tablet Commonly known as: Requip Take 1 tablet by mouth nightly. SPIRIVA HANDIHALER IN Inhale 1 puff nightly. zonisamide 100 MG capsule Commonly known as: Zonegran Take 1 capsule by mouth 3 times a day. Where to Get Your Medications These medications were sent to [facility] - [place], [place] - [address] [facility] [id number] acetaminophen 325 MG tablet aspirin 81 MG chewable tablet atorvastatin 80 MG tablet DSS 100 MG capsule methocarbamol 500 MG tablet metoprolol tartrate 25 MG tablet naloxone 4 mg/0.1 mL nasal spray NIFEdipine CC 30 MG 24 hr tablet oxyCODONE 5 MG immediate release tablet Discharge Diagnosis CAD (POA) S/p CABG x 3 - s/p CABG x 3 (PAREDES-LAD, RSV-OM, RSV-PDA) & LLE EV with Dr. Al on 12/17/24 - ASA, statin, BB - Routine post cardiac surgery care: Sternal precautions x 6 weeks, PT, bowel regimen to prevent constipation and aggressive pulmonary toilet. Reduced LV Systolic Function (POA) Cardiac Volume Overload - admit wt: 69.9 kg - LVEF 45-50% - Resume home Entresto when able, cont BB, & add GDMT as appropriate - Daily weights, strict I&O, 2g Na diet, FR, prn cxr - Received furosemide 40mg IV on 12/17 - 12/19: After review of am cxr, ordered Lasix 40mg IV x 1; BNP pending - 12/20: 67.9 kg - 12/21: 68.2 kg Hypertension (POA) - Home meds include Entresto 24/26mg po BID, held post op, restart when able - Hypertensive post operatively, treated with NTG & cleveprex - Started BB, currently metoprolol tartrate 25mg po BID - Started nifedipine XL 30mg po daily Acute Blood Loss Anemia - H&H preop 10.5/32.2 - Received 2u pRBCs intra-op - Monitor - 12/20: 9.1/27.3 Thrombocytopenia - Platelets on admit 218 - Not unexpected post op - 12/20: 110 Leukocytosis - Not unexpected post op - 12/19: 13.36 - 12/20: 9.3 Electrolyte Abnormalities Hypokalemia Hypermagnesemia Hypophosphatemia Hypocalcemia Hypernatremia Hydrochloremia - Monitor and treat accordingly Acute Post Op Pain - MMPM Dyslipidemia - Lipid panel: TC 96, Trig, 105, HDL 43, LDL 33 - Increase home atorvastatin from 40mg po daily to 80mg Seizures - Continue home Zonegran COPD - Continue home Spiriva Bipolar Disorder AnxietyDepresssion - Home meds include Seroquel 200mg po nightly, restart at 100mg po nightly while receiving opioids Neuropathic Pain - Continue home Lyrica 50mg po BID RLS - Continue home Requip 5mg po nightly Pre-Diabetes Mellitus - A1C is 5.8 - Home meds include metformin 500mg po BID, holding - Basal/bolus/ss during hospitalization as needed Tobacco Dependence - Strongly encourage cessation Nausea - Zofran and compazine no relief - Gastric bubble seen on CXR - Simethicone and reglan scheduled; monitor QTc - Haldol prn - 12/20: resolved Outpatient Follow-Up Future Appointments Date Time Provider Department Center 01/17/2025 12:00 PM Boris Al MD [facility] Follow up with Nestor Juarez MD Tuesday Your appointment is on February 13 at 1:30pm Please arrive 15 minutes early and bring UPDATED medication list. [facility] [address] [place] [address] Test Results Pending At Discharge none Pertinent Physical Exam At Time of Discharge Visit Vitals BP 116/73 (BP Location: Right arm, Patient Position: Lying) Pulse 95 Temp 36.4 ??C (97.6 ??F) (Oral) Resp 17 Ht 1.6 m (5' 2.99 ) Wt 68.2 kg (150 lb 5.7 oz) SpO2 94% BMI 26.64 kg/m?? OB Status Hysterectomy Smoking Status Every Day BSA 1.74 m?? Physical Exam Constitutional: Appearance: Normal appearance. Eyes: Extraocular Movements: Extraocular movements intact. Pupils: Pupils are equal, round, and reactive to light. Cardiovascular: Rate and Rhythm: Normal rate and regular rhythm. Heart sounds: Normal heart sounds. Pulmonary: Effort: Pulmonary effort is normal. Breath sounds: Normal breath sounds. Abdominal: General: Bowel sounds are normal. Skin: General: Skin is warm and dry. Neurological: General: No focal deficit present. Mental Status: She is alert and oriented to person, place, and time. Psychiatric: Mood and Affect: Mood normal. Behavior: Behavior normal. Results from last 7 days Lab Units 12/21/24 0337 WBC 10*3/uL 7.29 HEMOGLOBIN g/dL 8.7* HEMATOCRIT % 26.0* PLATELETS 10*3/uL 133* Results from last 7 days Lab Units 12/21/24 0337 SODIUM mmol/L 137 POTASSIUM mmol/L 3.5* CHLORIDE mmol/L 104 CO2 mmol/L 24 BUN mg/dL 15 CREATININE mg/dL 0.56* EGFR mL/min/1.73m*2 104.6 GLUCOSE mg/dL 113* CALCIUM mg/dL 8.0* Results from last 7 days Lab Units 12/21/24 0337 MAGNESIUM mg/dL 1.8* Discharge Disposition/Condition Disposition: Home Condition: Stable (s/sx potential problems absent or manageable) I spent >30 minutes of patient care and instruction time in preparation for this discharge. Cosigned by Boris Al MD at 12/30/2024 2:44 PM EDT * Selin Miller 12/21/2024 10:24 AM EDT Images from the original note were not included. [id number] Aspirin WHY is this medicine prescribed? Prescription aspirin is used to relieve the symptoms of rheumatoid arthritis (arthritis caused by swelling of the lining of the joints), osteoarthritis (arthritis caused by breakdown of the lining ofthe joints), systemic lupus erythematosus (condition in which the immune system attacks the joints and organs and causes pain and swelling) and certain other rheumatologic conditions (conditions in which the immune system attacks parts of the body). Nonprescription aspirin is used to reduce fever and to relieve mild to moderate pain from headaches, menstrual periods, arthritis, toothaches, and muscle aches. Nonprescription aspirin is also used to prevent heart attacks in people who have had a heart attack in the past or who have angina (chest pain that occurs when the heart does not get enough oxygen). Nonprescription aspirin is also used to reduce the risk of in people who are experiencing or who have recently experienced a heart attack. Nonprescription aspirin is also used to prevent ischemic strokes (strokes that occur when a blood clot blocks the flow of blood to the brain) ormini-strokes (strokes that occur when the flow of blood to the brain is blocked for a short time) in people who have had this type of stroke or mini-stroke in the past. Aspirin will not prevent hemorrhagic strokes (strokes caused by bleeding in the brain). Aspirin is in a group of medications called salicylates. It works by stopping the production of certain natural substances that cause fever, pain, swelling, and blood clots. Aspirin is also available in combination with other medications such as antacids, pain relievers, and cough and cold medications. This monograph only includes information about the use of aspirin alone. If you are taking a combination product, read the information on the package or prescription label or ask your doctor or pharmacist for more information. HOW should this medicine be used? Prescription aspirin comes as an extended-release (long-acting) tablet. Nonprescription aspirin comes as a regular tablet, a delayed-release (releases the medication in the intestine to prevent damage to the stomach) tablet, a chewable tablet, powder, and a gum to take by mouth. Prescription aspirin is usually taken two or more times a day. Nonprescription aspirin is usually taken once a day to lower the risk of a heart attack or stroke. Nonprescription aspirin is usually taken every 4 to 6 hours as needed to treat fever or pain. Follow the directions on the package or prescription label carefully, and ask your doctor or pharmacist to explain any part you do not understand. Take aspirin exactly as directed. Do not take more or less of it or take it more often than directed by the package label or prescribed by your doctor. Swallow the extended-release tablets whole with a full glass of water. Do not break, crush, or chewthem. Swallow the delayed-release tablets with a full glass of water. Chewable aspirin tablets may be chewed, crushed, or swallowed whole. Drink a full glass of water, immediately after taking these tablets. Ask a doctor before you give aspirin to your child or teenager. Aspirin may cause Alexandr's syndrome (a serious condition in which fat builds up on the brain, liver, and other body organs) in children and teenagers, especially if they have a virus such as chicken pox or the flu. If you have had oral surgery or surgery to remove your tonsils in the last 7 days, talk to your doctor about which types of aspirin are safe for you. Delayed-release tablets begin to work some time after they are taken. Do not take delayed-release tablets for fever or pain that must be relieved quickly. Stop taking aspirin and call your doctor if your fever lasts longer than 3 days, if your pain lastslonger than 10 days, or if the part of your body that was painful becomes red or swollen. You may have a condition that must be treated by a doctor. Are there OTHER USES for this medicine? Aspirin is also sometimes used to treat rheumatic fever (a serious condition that may develop aftera strep throat infection and may cause swelling of the heart valves) and Kawasaki disease (an illness that may cause heart problems in children). Aspirin is also sometimes used to lower the risk of blood clots in patients who have artificial heart valves or certain other heart conditions and to prevent certain complications of . What SPECIAL PRECAUTIONS should I follow? Before taking aspirin, ? tell your doctor and pharmacist if you are allergic to aspirin, other medications for pain or fever, tartrazine dye, or any other medications. ? tell your doctor and pharmacist what prescription and nonprescription medications, vitamins, nutritional supplements, and herbal products you are taking or plan to take. Be sure to mention any of the following: acetazolamide (Diamox); angiotensin-converting enzyme (AMELIA) inhibitors such as benazepril (Lotensin), captopril (Capoten), enalapril (Vasotec), fosinopril (Monopril), lisinopril (Prinivil, Zestril), moexipril (Univasc), perindopril, (Aceon), quinapril (Accupril), ramipril (Altace), andtrandolapril (Mavik); anticoagulants ('blood thinners') such as warfarin (Coumadin) and heparin; beta blockers such as atenolol (Tenormin), labetalol (Normodyne), metoprolol (Lopressor, Toprol XL), nadolol (Corgard), and propranolol (Inderal); diuretics ('water pills'); medications for diabetes or arthritis; medications for gout such as probenecid and sulfinpyrazone (Anturane); methotrexate (Trexall); other nonsteroidal anti- inflammatory drugs (NSAIDs) such as naproxen (Aleve, Naprosyn); phenytoin (Dilantin); and valproic acid (Depakene, Depakote). Your doctor may need to change the doses of your medications or monitor you more carefully for side effects. ? if you are taking aspirin on a regular basis to prevent heart attack or stroke, do not take ibuprofen (Advil, Motrin) to treat pain or fever without talking to your doctor. Your doctor will probably tell you to allow some time to pass between taking your daily dose of aspirin and taking a dose ofibuprofen. ? tell your doctor if you have or have ever had asthma, frequent stuffed or runny nose, or nasal polyps (growths on the linings of the nose). If you have these conditions, there is a risk that you will have an allergic reaction to aspirin. Your doctor may tell you that you should not take aspirin. ? tell your doctor if you often have heartburn, upset stomach, or stomach pain and if you have or have ever had ulcers, anemia, bleeding problems such as hemophilia, or kidney or liver disease. ? tell your doctor if you are , you plan to become , or if you are breast-feeding. Low dose aspirin 81-mg may be taken during , but aspirin doses greater that 81 mg may harm the fetus and cause problems with delivery if it is taken around 20 weeks or later during .Do not take aspirin doses greater that 81 mg (e.g., 325 mg) around or after 20 weeks of , unless told to do so by your doctor. If you become while taking aspirin or aspirin containing medications, call your doctor. ? if you are having surgery, including dental surgery, tell the doctor or dentist that you are taking aspirin. ? if you drink three or more alcoholic drinks every day, ask your doctor if you should take aspirinor other medications for pain and fever. What SPECIAL DIETARY instructions should I follow? Unless your doctor tells you otherwise, continue your normal diet. What should I do IF I FORGET to take a dose? If your doctor has told you to take aspirin on a regular basis and you miss a dose, take the misseddose as soon as you remember it. However, if it is almost time for the next dose, skip the missed dose and continue your regular dosing schedule. Do not take a double dose to make up for a missed one. What SIDE EFFECTS can this medicine cause? Some side effects can be serious. If you experience any of the following symptoms, call your doctorimmediately: ? hives ? rash ? swelling of the eyes, face, lips, tongue, or throat ? wheezing or difficulty breathing ? hoarseness ? fast heartbeat ? fast breathing ? cold, clammy skin ? ringing in the ears ? loss of hearing ? bloody vomit ? vomit that looks like coffee grounds ? bright red blood in stools ? black or tarry stools Aspirin may cause other side effects. Call your doctor if you experience any unusual problems whileyou are taking this medication. If you experience a serious side effect, you or your doctor may send a report to the Food and Drug Administration's (FDA) MedWatch Adverse Event Reporting program online (https://www.fda.gov/Safety/MedWatch) or by phone ( ). What should I know about STORAGE and DISPOSAL of this medication? Keep this medication in the container it came in, tightly closed, and out of reach of children. Store it at room temperature and away from excess heat and moisture (not in the bathroom). Dispose of any tablets that have a strong vinegar smell. Keep all medication out of sight and reach of children as many containers are not child-resistant. Always lock safety caps. Place the medication in a safe location - one that is up and away and out of their sight and reach. https://www.[employer].org Dispose of unneeded medications in a way so that pets, children, and other people cannot take them.Do not flush this medication down the toilet. Use a medicine take-back program. Talk to your pharmacist about take-back programs in your community. Visit the FDA's Safe Disposal of Medicines website h ttps://goo.gl/c4Rm4p for more information. What should I do in case of OVERDOSE? In case of overdose, call the poison control helpline at . Information is also available online at https://www.poisonhelp.org/help. If the victim has collapsed, had a seizure, has trouble breathing, or can't be awakened, immediately call emergency services at 441. Symptoms of overdose may include: ? burning pain in the throat or stomach ? vomiting ? decreased urination ? fever ? restlessness ? irritability ? talking a lot and saying things that do not make sense ? fear or nervousness ? dizziness ? double vision ? uncontrollable shaking of a part of the body ? confusion ? abnormally excited mood ? hallucination (seeing things or hearing voices that are not there) ? seizures ? drowsiness ? loss of consciousness for a period of time What OTHER INFORMATION should I know? Keep all appointments with your doctor. If you are taking prescription aspirin, do not let anyone else take your medication. Ask your pharmacist any questions you have about refilling your prescription. Keep a written list of all of the prescription and nonprescription ([id number]) medicines, vitamins, minerals, and dietary supplements you are taking. Bring this list with you each time you visit a doctor or if you are admitted to the hospital. You should carry the list with you in case of kristi rgencies. Brand Name(s): ? Acuprin?? ? Anacin?? Aspirin Regimen ? Ascriptin?? ? Aspergum?? ? Aspidrox?? ? Aspir-Mox?? ? Aspirtab?? ? Aspir-quincy?? ? Noemí?? Aspirin ? Bufferin?? ? Buffex?? ? Easprin?? ? Ecotrin?? ? Empirin?? ? Entaprin?? ? Entercote?? ? Fasprin?? ? Genacote?? ? Gennin-FC?? ? Genprin?? ? Halfprin?? ? Magnaprin?? ? Miniprin?? ? Minitabs?? ? Ridiprin?? ? Sloprin?? ? Uni-Buff?? ? Uni-Tren?? ? Valomag?? ? Zorprin?? ? [place]?? (as a combination product containing Aspirin, Citric Acid, Sodium Bicarbonate) ? [place]?? Extra Strength (as a combination product containing Aspirin, Citric Acid, Sodium Bicarbonate) ? [place]?? Morning Relief (as a combination product containing Aspirin, Caffeine) ? [place]?? Plus Flu (as a combination product containing Aspirin, Chlorpheniramine, Dextromethorphan) ? [place]?? PM (as a combination product containing Aspirin, Diphenhydramine) ? Alor?? (as a combination product containing Aspirin, Hydrocodone) ? Anacin?? (as a combination product containing Aspirin, Caffeine) ? Anacin?? Advanced Headache Formula (as a combination product containing Acetaminophen, Aspirin, Caffeine) ? Aspircaf?? (as a combination product containing Aspirin, Caffeine) ? Axotal?? (as a combination product containing Aspirin, Butalbital) ? Azdone?? (as a combination product containing Aspirin, Hydrocodone) ? Noemí?? Aspirin Plus Calcium (as a combination product containing Aspirin, Calcium Carbonate) ? Noemí?? Aspirin PM (as a combination product containing Aspirin, Diphenhydramine) ? Noemí?? Back and Body Pain (as a combination product containing Aspirin, Caffeine) ? BC Headache (as a combination product containing Aspirin, Caffeine, Salicylamide) ? BC Powder (as a combination product containing Aspirin, Caffeine, Salicylamide) ? Damason-P?? (as a combination product containing Aspirin, Hydrocodone) ? Emagrin?? (as a combination product containing Aspirin, Caffeine, Salicylamide) ? Endodan?? (as a combination product containing Aspirin, Oxycodone) ? Equagesic?? (as a combination product containing Aspirin, Meprobamate) ? Excedrin?? (as a combination product containing Acetaminophen, Aspirin, Caffeine) ? Excedrin Back & Body (as a combination product containing Acetaminophen, Aspirin) ? Goody's?? Body Pain (as a combination product containing Acetaminophen, Aspirin) ? Levacet?? (as a combination product containing Acetaminophen, Aspirin, Caffeine, Salicylamide) ? Lortab?? ASA (as a combination product containing Aspirin, Hydrocodone) ? Micrainin?? (as a combination product containing Aspirin, Meprobamate) ? Momentum?? (as a combination product containing Aspirin, Phenyltoloxamine) ? Norgesic?? (as a combination product containing Aspirin, Caffeine, Orphenadrine) ? Orphengesic?? (as a combination product containing Aspirin, Caffeine, Orphenadrine) ? Panasal?? (as a combination product containing Aspirin, Hydrocodone) ? Percodan?? (as a combination product containing Aspirin, Oxycodone) ? Robaxisal?? (as a combination product containing Aspirin, Methocarbamol) ? Roxiprin?? (as a combination product containing Aspirin, Oxycodone) ? Saleto?? (as a combination product containing Acetaminophen, Aspirin, Caffeine, Salicylamide) ? Soma?? Compound (as a combination product containing Aspirin, Carisoprodol) ? Soma?? Compound with Codeine (as a combination product containing Aspirin, Carisoprodol, Codeine) ? Supac?? (as a combination product containing Acetaminophen, Aspirin, Caffeine) ? Synalgos-DC?? (as a combination product containing Aspirin, Caffeine, Dihydrocodeine) ? Talwin?? Compound (as a combination product containing Aspirin, Pentazocine) ? Vanquish?? (as a combination product containing Acetaminophen, Aspirin, Caffeine) also available generically Acetylsalicylic acid, ASA This report on medications is for your information only, and is not considered individual patient advice. Because of the changing nature of drug information, please consult your physician or pharmacist about specific clinical use. The [employer] represents that the information provided hereunder was formulated with a reasonable standard of care, and in conformity with professional standards in the field. The [employer] makes no representations or warranties, express or implied, including, but not limited to, any implied warranty of merchantability and/or fitness for a particular purpose, with respect to such information and specifically disclaims all such warranties. Users are advised that decisions regarding drug therapy are complex medical decisions requiring the independent, informed decision of an appropriate health childcare center administrator, and the information is provided for informational purposes only. The entire monograph for a drug should be reviewed for a thorough understanding of the drug's actions, uses and side effects. The [employer] does not endorse or recommend the use of any drug.The information is not a substitute for medical care. AHFS?? Patient Medication Information?. ?? Copyright, 2023. [employer]??, [address], [address], [place], [place]. All Rights Reserved. Duplication for commercial use must be authorized by [facility]. Selected Revisions: October 11, 2020. AHFS?? Patient Medication Information?. ?? Copyright, 2024 * Jeff [facility] - Selin Bartlett - 12/21/2024 10:24 AM EDT Images from the original note were not included. [id number] Acetaminophen IMPORTANT WARNING: Taking too much acetaminophen can cause liver damage, sometimes serious enough to require liver transplantation or cause . You might accidentally take too much acetaminophen if you do not followthe directions on the prescription or package label carefully, or if you take more than one productthat contains acetaminophen. To be sure that you take acetaminophen safely, you should ? not take more than one product that contains acetaminophen at a time. Read the labels of all the prescription and nonprescription medications you are taking to see if they contain acetaminophen. Beaware that abbreviations such as APAP, AC, Acetaminophen, Acetaminoph, Acetaminop, Acetamin, or Acetam. may be written on the label in place of the word acetaminophen. Ask your doctor or pharmacist if you don't know if a medication that you are taking contains acetaminophen. ? take acetaminophen exactly as directed on the prescription or package label. Do not take more acetaminophen or take it more often than directed, even if you still have fever or pain. Ask your doctor or pharmacist if you do not know how much medication to take or how often to take your medication.Call your doctor if you still have pain or fever after taking your medication as directed. ? be aware that you should not take more than 4000 mg of acetaminophen per day. If you need to takemore than one product that contains acetaminophen, it may be difficult for you to calculate the total amount of acetaminophen you are taking. Ask your doctor or pharmacist to help you. ? tell your doctor if you have or have ever had liver disease. ? not take acetaminophen if you drink three or more alcoholic drinks every day. Talk to your doctorabout the safe use of alcohol while you are taking acetaminophen. ? stop taking your medication and call your doctor right away if you think you have taken too much acetaminophen, even if you feel well. Talk to your pharmacist or doctor if you have questions about the safe use of acetaminophen or acetaminophen-containing products. WHY is this medicine prescribed? Acetaminophen is used to relieve mild to moderate pain from headaches, muscle aches, menstrual periods, colds and sore throats, toothaches, backaches, reactions to vaccinations (shots), and to reducefever. Acetaminophen may also be used to relieve the pain of osteoarthritis (arthritis caused by the breakdown of the lining of the joints). Acetaminophen is in a class of medications called analgesics (pain relievers) and antipyretics (fever reducers). It works by changing the way the body senses pain and by cooling the body. HOW should this medicine be used? Acetaminophen comes as a tablet, chewable tablet, capsule, suspension or solution (liquid), extended-release (long-acting) tablet, and orally disintegrating tablet (tablet that dissolves quickly in the mouth), to take by mouth, with or without food. Acetaminophen is available without a prescription, but your doctor may prescribe acetaminophen to treat certain conditions. Follow the directions on the package or prescription label carefully, and ask your doctor or pharmacist to explain any part you do not understand. If you are giving acetaminophen to your child, read the package label carefully to make sure that it is the right product for the age of the child. Do not give children acetaminophen products that are made for adults. Some products for adults and older children may contain too much acetaminophen for a younger child. Check the package label to find out how much medication the child needs. If you know how much your child weighs, give the dose that matches that weight on the chart. If you don't know your child's weight, give the dose that matches your child's age. Ask your child's doctor if you don't know how much medication to give your child. Acetaminophen comes in combination with other medications to treat cough and cold symptoms. Ask your doctor or pharmacist for advice on which product is best for your symptoms. Check nonprescription cough and cold product labels carefully before using two or more products at the same time. These products may contain the same active ingredient(s) and taking them together could cause you to receivean overdose. This is especially important if you will be giving cough and cold medications to a child. Swallow the extended-release tablets whole; do not split, chew, crush, or dissolve them. Place the orally disintegrating tablet ('Meltaways') in your mouth and allow it to dissolve, or chew it before swallowing. Shake the suspension well before each use to mix the medication evenly. Always use the measuring cup or syringe provided by the carving machine operator to measure each dose of the solution or suspension. Do notswitch dosing devices between different products; always use the device that comes in the product packaging. Stop taking acetaminophen and call your doctor if your symptoms get worse, you develop new or unexpected symptoms, including redness or swelling, your pain lasts for more than 10 days, or your fever gets worse or lasts more than 3 days. Also stop giving acetaminophen to your child and call your child's doctor if your child develops new symptoms, including redness or swelling, or if your child's pain lasts for longer than 5 days, or if a fever gets worse or lasts longer than 3 days. Do not give acetaminophen to a child who has a sore throat that is severe or does not go away, or that occurs along with fever, headache, rash, nausea, or vomiting. Call the child's doctor right away, because these symptoms may be signs of a more serious condition. Are there OTHER USES for this medicine? Acetaminophen may also be used in combination with aspirin and caffeine to relieve the pain associated with migraine headache. This medication is sometimes prescribed for other uses; ask your doctor or pharmacist for more information. What SPECIAL PRECAUTIONS should I follow? Before taking acetaminophen, ? tell your doctor and pharmacist if you are allergic to acetaminophen, any other medications, or any of the ingredients in the product. Ask your pharmacist or check the label on the package for a list of ingredients. ? tell your doctor and pharmacist what prescription and nonprescription medications, vitamins, nutritional supplements, or herbal products you are taking or plan to take while taking acetaminophen. Your doctor may need to change the doses of your medications or monitor you carefully for side effects. ? The following nonprescription products may interact with acetaminophen: medications for pain, coughs, fever, and colds. Be sure to let your doctor and pharmacist know that you are taking these medications before you start taking acetaminophen. Do not start any of these medications while taking acetaminophen without discussing with your healthcare provider. ? tell your doctor if you have ever developed a rash after taking acetaminophen. ? tell your doctor if you are , plan to become , or are breast- feeding. If you become while taking acetaminophen, call your doctor. ? if you drink three or more alcoholic beverages every day, do not take acetaminophen. Ask your doctor or pharmacist about the safe use of alcoholic beverages while taking acetaminophen. ? you should know that combination acetaminophen products for cough and colds that contain nasal decongestants, antihistamines, cough suppressants, and expectorants should not be used in children younger than 2 years of age. Use of these medications in young children can cause serious and life-threatening effects or . In children 2 through 11 years of age, combination cough and cold productsshould be used carefully and only according to the directions on the label. ? if you have phenylketonuria (PKU, an inherited condition in which a special diet must be followedto prevent damage to your brain that can cause severe intellectual disability), you should know that some brands of acetaminophen chewable tablets may be sweetened with aspartame, a source of phenylalanine. What SPECIAL DIETARY instructions should I follow? Unless your doctor tells you otherwise, continue your normal diet. What should I do IF I FORGET to take a dose? This medication is usually taken as needed. If your doctor has told you to take acetaminophen regularly, take the missed dose as soon as you remember it. However, if it is almost time for the next dose, skip the missed dose and continue your regular dosing schedule. Do not take a double dose to make up for a missed one. What SIDE EFFECTS can this medicine cause? Some side effects can be serious. If you experience any of the following symptoms, stop taking acetaminophen and call your doctor immediately or get emergency medical attention: ? red, peeling or blistering skin ? rash ? hives ? itching ? swelling of the face, throat, tongue, lips, eyes, hands, feet, ankles, or lower legs ? hoarseness ? difficulty breathing or swallowing Acetaminophen may cause other side effects. Call your doctor if you have any unusual problems whileyou are taking this medication. If you experience a serious side effect, you or your doctor may send a report to the Food and Drug Administration's (FDA) MedWatch Adverse Event Reporting program online (https://www.fda.gov/Safety/MedWatch) or by phone ( ). What should I know about STORAGE and DISPOSAL of this medication? Keep this medication in the container it came in, tightly closed, and out of reach of children. Store it at room temperature and away from excess heat and moisture (not in the bathroom). Keep all medication out of sight and reach of children as many containers are not child-resistant. Always lock safety caps. Place the medication in a safe location - one that is up and away and out of their sight and reach. https://www.[employer].org Dispose of unneeded medications in a way so that pets, children, and other people cannot take them.Do not flush this medication down the toilet. Use a medicine take-back program. Talk to your pharmacist about take-back programs in your community. Visit the FDA's Safe Disposal of Medicines website h ttps://goo.gl/c4Rm4p for more information. What should I do in case of OVERDOSE? In case of overdose, call the poison control helpline at . Information is also available online at https://www.poisonhelp.org/help. If the victim has collapsed, had a seizure, has trouble breathing, or can't be awakened, immediately call emergency services at 051. If someone takes more than the recommended dose of acetaminophen, get medical help immediately, even if the person does not have any symptoms. Symptoms of overdose may include the following: ? nausea ? vomiting ? loss of appetite ? sweating ? extreme tiredness ? unusual bleeding or bruising ? pain in the upper right part of the stomach ? yellowing of the skin or eyes ? flu-like symptoms What OTHER INFORMATION should I know? Before having any laboratory test, tell your doctor and the laboratory personnel that you are taking acetaminophen. Ask your pharmacist any questions you have about acetaminophen. Keep a written list of all of the prescription and nonprescription (aips-hvu-muoonzh) medicines, vitamins, minerals, and dietary supplements you are taking. Bring this list with you each time you visit a doctor or if you are admitted to the hospital. You should carry the list with you in case of kristi rgencies. Brand Name(s): ? Actamin?? ? Feverall?? ? Panadol?? ? Tempra Quicklets?? ? Tylenol?? ? Dayquil?? (as a combination product containing Acetaminophen, Dextromethorphan, Pseudoephedrine) ? NyQuil Cold/Flu Relief?? (as a combination product containing Acetaminophen, Dextromethorphan, Doxylamine) ? Percocet?? (as a combination product containing Acetaminophen, Oxycodone) APAP, F-ewstvz-qjpt-aminophenol, Paracetamol This report on medications is for your information only, and is not considered individual patient advice. Because of the changing nature of drug information, please consult your physician or pharmacist about specific clinical use. The [employer] represents that the information provided hereunder was formulated with a reasonable standard of care, and in conformity with professional standards in the field. The [employer] makes no representations or warranties, express or implied, including, but not limited to, any implied warranty of merchantability and/or fitness for a particular purpose, with respect to such information and specifically disclaims all such warranties. Users are advised that decisions regarding drug therapy are complex medical decisions requiring the independent, informed decision of an appropriate health childcare center administrator, and the information is provided for informational purposes only. The entire monograph for a drug should be reviewed for a thorough understanding of the drug's actions, uses and side effects. The [employer] does not endorse or recommend the use of any drug.The information is not a substitute for medical care. AHFS?? Patient Medication Information?. ?? Copyright, 2023. The [employer]??, [address], [address], [place], [place]. All Rights Reserved. Duplication for commercial use must be authorized by [facility]. Selected Revisions: February 11, 2023. AHFS?? Patient Medication Information?. ?? Copyright, 2024 * Care Plan - Kael Siddiqi RN - 12/21/2024 10:07 AM EDT Problem: Adult Inpatient Plan of Care Goal: Plan of Care Review Outcome: Met Flowsheets (Taken 12/20/2024 0425 by Yovana Asif RN) Progress: improving Plan of Care Reviewed With: patient Goal: Patient-Specific Goal (Individualized) Outcome: Met Goal: Absence of Hospital-Acquired Illness or Injury Outcome: Met Intervention: Identify and Manage Fall Risk Flowsheets (Taken 12/21/2024 100) Safety Promotion/Fall Prevention: activity supervised Intervention: Prevent Skin Injury Flowsheets (Taken 12/21/2024 100) Body Position: weight shifting Skin Protection: incontinence pads utilized Intervention: Prevent and Manage VTE (Venous Thromboembolism) Risk Flowsheets (Taken 12/21/2024 100) VTE Prevention/Management: medication Intervention: Prevent Infection Flowsheets (Taken 12/21/2024 100) Infection Prevention: single patient room provided Goal: Optimal Comfort and Wellbeing Outcome: Met Intervention: Monitor Pain and Promote Comfort Flowsheets (Taken 12/21/2024 100) Pain Management Interventions: medication (see MAR) pillow support provided position adjusted relaxation techniques promoted Intervention: Provide Person-Centered Care Flowsheets (Taken 12/21/20241004) Trust Relationship/Rapport: care explained choices provided questions answered questions encouraged Goal: Readiness for Transition of Care Outcome: Met Problem: Fall Injury Risk Goal: Absence of Fall and Fall-Related Injury Outcome: Met Intervention: Identify and Manage Contributors Flowsheets (Taken 12/21/20241004) Medication Review/Management: medications reviewed Self-Care Promotion: independence encouraged Problem: Infection Goal: Absence of Infection Signs and Symptoms Outcome: Met Intervention: Prevent or Manage Infection Flowsheets (Taken 12/21/2024 100) Infection Management: aseptic technique maintained Fever Reduction/Comfort Measures: lightweight bedding lightweight clothing Isolation Precautions: protective Problem: Skin Injury Risk Increased Goal: Skin Health and Integrity Outcome: Met Problem: Pain Acute Goal: Optimal Pain Control and Function Outcome: Met Problem: Mobility Impairment Goal: Optimal Mobility Outcome: Met Problem: Cardiovascular Surgery Goal: Improved Activity Tolerance Outcome: Met Goal: Optimal Coping with Heart Surgery Outcome: Met Goal: Absence of Bleeding Outcome: Met Goal: Effective Cardiac Function Outcome: Met Goal: Fluid and Electrolyte Balance Outcome: Met Goal: Blood Glucose Level Within Target Range Outcome: Met Goal: Absence of Infection Signs and Symptoms Outcome: Met Goal: Acceptable Pain Control Outcome: Met Goal: Nausea and Vomiting Relief Outcome: Met Goal: Effective Urinary Elimination Outcome: Met Goal: Effective Oxygenation and Ventilation Outcome: Met Problem: Comorbidity Management Goal: Maintenance of COPD Symptom Control Outcome: Met Goal: Blood Glucose Level Within Target Range Outcome: Met Goal: Maintenance of Heart Failure Symptom Control Outcome: Met Goal: Blood Pressure in Desired Range Outcome: Met Goal: Maintenance of Seizure Control Outcome: Met Problem: Self-Care Deficit Goal: Improved Ability to Complete Activities of Daily Living Outcome: Met * Progress Notes - Marietta Short RN - 12/21/2024 9:40 AM EDT Case Management Discharge Note Beverley Antoine 59 y.o. female CSN: [id number] Admission: 12/17/2024 5:11 AM Primary Problem: CAD (coronary artery disease) Primary Section Leader And Machine Setter: Primary Caregiver: Self Assistance Available at Discharge: Current Outpatient/Agency/Support Group: DME Availability of Care Givers (#Hours): No assistance needed Family/Section Leader And Machine Setter(s) Willingness Assessed to care for patient at home: Yes Family/Section Leader And Machine Setter(s) Readiness Assessed to care for patient at home: Yes Housing Circumstances-Z Codes: Housing Circumstances (select all that apply): None Applicable Patient Referred to Financial or Community Resources: n/a Discharge Facility/Level of Care Needs: Discharge Facility/Level of Care Needs: 1-Home or Self Care Patient's Choice of Community Agency(s): Patient's Choice of Community Agency(s): n/a Patient/Family Anticipated Services at Transition: Patient/Family Anticipated Services at Transition: durable medical equipment DME/Equipment Needed after Discharge: Equipment Currently Used at Home: other (see comments), walker, standard, wheelchair, manual (thoracic walker) Equipment Needed After Discharge: walker, rollator Readmission Within the Last 30 Days: Readmission Within the Last 30 Days: current reason for admission unrelated to previous admission Medicare Documentation: Medicare Second Notice?: Yes Date Second Notice Completed: 12/21/24 Time Second Notice Completed: 918 Medicare Second Notice Recieved By: patient Follow-up: [facility] [address] [facility], [address] [place] [address] [phone] Nestor Juarez MD [facility] [address] [place] [address] Follow up on 02/13/2025 Your appointment is on February 13 at 1:30pm Please arrive 15 minutes early and bring UPDATED medication list. Discharge Transportation: Transportation Anticipated: family or friend will provide Transportation Home at Discharge: Family/Friend will Provide Follow Up Transport: Transportation Needed to Follow up Appoinments: Family/Friend will Provide Additional Comments: Per primary team patient is medically ready for discharge and may discharge today. CM confirmed rollator in patient's room. Patient is agreeable with discharge plan. No SW/CM needs identified. to transport and assist upon discharge. Marietta Short RN * Care Plan - Yovana Asif RN - 12/21/2024 12:33 AM EDT Problem: Adult Inpatient Plan of Care Goal: Plan of Care Review Outcome: Ongoing, Progressing Flowsheets (Taken 12/20/2024 0425) Progress: improving Plan of Care Reviewed With: patient Goal: Patient-Specific Goal (Individualized) Outcome: Ongoing, Progressing Flowsheets (Taken 12/20/20241999) Patient/Family-Specific Goals (Include Timeframe): pt will remain free from falls/injuries throughout shift by utilitzing call light before ambulating Individualized Care Needs: safety Anxieties, Fears or Concerns: discharge planning Goal: Absence of Hospital-Acquired Illness or Injury Outcome: Ongoing, Progressing Note: Pt encouraged to use call light before ambulating Intervention: Identify and Manage Fall Risk Flowsheets (Taken 12/20/20241999) Safety Promotion/Fall Prevention: activity supervised assistive device/personal items within reach clutter-free environment maintained fall prevention program maintained lighting adjusted mobility aid in reach nonskid shoes/slippers when out of bed room organization consistent safety round/check completed Intervention: Prevent Skin Injury Flowsheets Taken 12/21/202427 Body Position: weight shifting Taken 12/20/20242049 Skin Protection: incontinence pads utilized Intervention: Prevent and Manage VTE (Venous Thromboembolism) Risk Flowsheets (Taken 12/21/202427) VTE Prevention/Management: previous patient education reinforced Intervention: Prevent Infection Flowsheets (Taken 12/21/2024 0028) Infection Prevention: rest/sleep promoted Goal: Optimal Comfort and Wellbeing Outcome: Ongoing, Progressing Note: Pain management goals reviewed with patient Intervention: Provide Person-Centered Care Flowsheets (Taken 12/20/20242049) Trust Relationship/Rapport: care explained choices provided emotional support provided empathic listening provided questions answered questions encouraged reassurance provided thoughts/feelings acknowledged Goal: Readiness for Transition of Care Outcome: Ongoing, Progressing Problem: Fall Injury Risk Goal: Absence of Fall and Fall-Related Injury Outcome: Ongoing, Progressing Intervention: Identify and Manage Contributors Flowsheets (Taken 12/18/2024 1243 by Bouchra Rees, RN) Medication Review/Management: medications reviewed Self-Care Promotion: independence encouraged Intervention: Promote Injury-Free Environment Flowsheets (Taken 12/20/20241999) Safety Promotion/Fall Prevention: activity supervised assistive device/personal items within reach clutter-free environment maintained fall prevention program maintained lighting adjusted mobility aid in reach nonskid shoes/slippers when out of bed room organization consistent safety round/check completed Problem: Infection Goal: Absence of Infection Signs and Symptoms Outcome: Ongoing, Progressing Intervention: Prevent or Manage Infection Flowsheets Taken 12/20/20241999 by Yovana Asif RN Isolation Precautions: protective Taken 12/18/2024 1243 by Bouchra Rees, RN Infection Management: aseptic technique maintained Fever Reduction/Comfort Measures: lightweight bedding lightweight clothing Problem: Skin Injury Risk Increased Goal: Skin Health and Integrity Outcome: Ongoing, Progressing Problem: Pain Acute Goal: Optimal Pain Control and Function Outcome: Ongoing, Progressing Problem: Mobility Impairment Goal: Optimal Mobility Outcome: Ongoing, Progressing Problem: Cardiovascular Surgery Goal: Improved Activity Tolerance Outcome: Ongoing, Progressing Goal: Optimal Coping with Heart Surgery Outcome: Ongoing, Progressing Intervention: Support Psychosocial Response to Surgery Flowsheets (Taken 12/20/20242049) Supportive Measures: active listening utilized decision-making supported positive reinforcement provided self-care encouraged Goal: Absence of Bleeding Outcome: Ongoing, Progressing Goal: Effective Cardiac Function Outcome: Ongoing, Progressing Goal: Fluid and Electrolyte Balance Outcome: Ongoing, Progressing Goal: Blood Glucose Level Within Target Range Outcome: Ongoing, Progressing Goal: Absence of Infection Signs and Symptoms Outcome: Ongoing, Progressing Goal: Acceptable Pain Control Outcome: Ongoing, Progressing Goal: Nausea and Vomiting Relief Outcome: Ongoing, Progressing Goal: Effective Urinary Elimination Outcome: Ongoing, Progressing Goal: Effective Oxygenation and Ventilation Outcome: Ongoing, Progressing Problem: Comorbidity Management Goal: Maintenance of COPD Symptom Control Outcome: Ongoing, Progressing Goal: Blood Glucose Level Within Target Range Outcome: Ongoing, Progressing Goal: Maintenance of Heart Failure Symptom Control Outcome: Ongoing, Progressing Goal: Blood Pressure in Desired Range Outcome: Ongoing, Progressing Goal: Maintenance of Seizure Control Outcome: Ongoing, Progressing Problem: Self-Care Deficit Goal: Improved Ability to Complete Activities of Daily Living Outcome: Ongoing, Progressing * Progress Notes - Marietta Short RN - 12/20/2024 10:54 AM EDT Case Management Adult Progress Note Beverley Antoine 59 y.o. female CSN: [id number] Admission: 12/17/2024 5:11 AM Primary Problem: CAD (coronary artery disease) Anticipated Discharge Date: 12/21/2024 Additional Comments: RN CHANDLER reviewed chart and met with primary team to discuss plan of care. Patient is not medically ready for discharge at this time, chest tube and pacing wires removed. GIOVANNY ARTEAGA willcontinue to follow. CM place rollator [facility]. Marietta Short RN * Progress Notes - Andrew Paulson PA - 12/20/2024 7:09 AM EDT CVT Progress Note Chief complaint: follow up for CABG 24 Hour Events/HPI: No events overnight Nausea resolved. Reports that she is eating better today +BM this am Now on room air Ambulating with assist Objective: All laboratory data, images, tracings, and vital sign data for past 24 hours are personally reviewed unless otherwise noted. @PATIENTWT@ , Weight: 69.9 kg (154 lb) , Ht Readings from Last 1 Encounters: 12/18/24 1.6 m (5' 2.99 ) , Body mass index is 26.52 kg/m??. VITALS (last 24h) Temp: [36.6 ??C (97.8 ??F)-36.9 ??C (98.5 ??F)] 36.9 ??C (98.5 ??F) Heart Rate: [76-103] 103 Resp: [8-26] 16 BP: (82-140)/(48-77) 99/55 Visit Vitals BP 99/55 Pulse 103 Temp 36.9 ??C (98.5 ??F) Resp 16 Ht 1.6 m (5' 2.99 ) Wt 67.9 kg (149 lb 11.1 oz) SpO2 96% BMI 26.52 kg/m?? OB Status Hysterectomy Smoking Status Every Day BSA 1.74 m?? I & O Summary Intake/Output Summary (Last 24 hours) at 12/20/2024 0709 Last data filed at 12/19/2024 1829 Gross per 24 hour Intake 960 ml Output 510 ml Net 450 ml LABS CBC WBC 9.30 Hb 9.1 (L) Plt 110 (L) Hct 27.3 (L) ANC ?? INR ??, PTT ??, Anti-Xa ?? BMP Na 137 Cl 98 BUN 17 Glu 105 (H) K 3.2 (L) Co2 27 Cr 0.64 Ca 8.8 (L) iCa ?? Mg 1.8 (L), Phos 2.2 (L) Lactate ?? LFT AST ?? AlkPhos ?? T Prot ?? ALK ?? Bili ?? Alb ?? D.Bili ?? HOURS) MEDICATIONS Current Scheduled Medications[1] Current Continuous Medications[2] Current PRN Medications[3] Physical Exam: GENERAL: Well-developed, well-nourished. No apparent distress. RESP/CHEST: Clear to auscultation bilaterally. Normal work of breathing with symmetric expansion noted. Midsternal incision CDI and Sternum stable CARD: Regular rate and rhythm. Normal S1/S2. No murmur. No rubs or gallops. Extremities: No lower extremity edema present. No cyanosis or clubbing. Pedal pulses palpable +2. EVH site CDI GI: Soft, non-tender, nondistended. Bowel sounds present and normoactive x 4 quadrants SKIN: [place], warm, and dry. No rash, sores, or lesions. NEURO: AAOx4. Motor function intact and no focal deficits. PSYCH: Mood and affect congruent and appropriate to situation. Beverley Antoine is a 59 yo referred to [facility] by Dr. 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 Hernandez on 12/17. CAD (POA) S/p CABG x 3 - s/p CABG x 3 (PAREDES-LAD, RSV-OM, RSV-PDA) & LLE EVH with Dr. Al on 12/17/24 - ASA, statin, BB - Routine post cardiac surgery care: Sternal precautions x 6 weeks, PT, bowel regimen to prevent constipation and aggressive pulmonary toilet. Reduced LV Systolic Function (POA) Cardiac Volume Overload - admit wt: 69.9 kg - LVEF 45-50% - Resume home Entresto when able, cont BB, & add GDMT as appropriate - Daily weights, strict I&O, 2g Na diet, FR, prn cxr - Received furosemide 40mg IV on 12/17 - 12/19: After review of am cxr, ordered Lasix 40mg IV x 1; BNP pending - 12/20: 67.9 kg Hypertension (POA) - Home meds include Entresto 24/26mg po BID, held post op, restart when able - Hypertensive post operatively, treated with NTG & cleveprex - Started BB, currently metoprolol tartrate 25mg po BID - Started nifedipine XL 30mg po daily Acute Blood Loss Anemia - H&H preop 10.5/32.2 - Received 2u pRBCs intra-op - Monitor - 12/20: 9.1/27.3 Thrombocytopenia - Platelets on admit 218 - Not unexpected post op - 12/20: 110 Leukocytosis - Not unexpected post op - 12/19: 13.36 - 12/20: 9.3 Electrolyte Abnormalities Hypokalemia Hypermagnesemia Hypophosphatemia Hypocalcemia Hypernatremia Hydrochloremia - Monitor and treat accordingly Acute Post Op Pain - MMPM Dyslipidemia - Lipid panel: TC 96, Trig, 105, HDL 43, LDL 33 - Increase home atorvastatin from 40mg po daily to 80mg Seizures - Continue home Zonegran COPD - Continue home Spiriva Bipolar Disorder AnxietyDepresssion - Home meds include Seroquel 200mg po nightly, restart at 100mg po nightly while receiving opioids Neuropathic Pain - Continue home Lyrica 50mg po BID RLS - Continue home Requip 5mg po nightly Pre-Diabetes Mellitus - A1C is 5.8 - Home meds include metformin 500mg po BID, holding - Basal/bolus/ss during hospitalization as needed Tobacco Dependence - Strongly encourage cessation Nausea - Zofran and compazine no relief - Gastric bubble seen on CXR - Simethicone and reglan scheduled; monitor QTc - Haldol prn - 12/20: resolved PLAN: Dc'd drain tubes Dc'd EPWs Possibly home in am Cardiothoracic Surgery [phone] [1] acetaminophen, 1,000 mg, Oral, q8h aspirin, 81 mg, Oral, Daily atorvastatin, 80 mg, Oral, Nightly docusate sodium, 100 mg, Oral, BID enoxaparin, 40 mg, Subcutaneous, Daily heparin flush (porcine), 500 Units, Intracatheter, Once lidocaine, 1 patch, Apply externally, q24h magnesium sulfate, 2 g, Intravenous, Once methocarbamol, 500 mg, Oral, 4x daily metoprolol tartrate, 25 mg, Oral, BID mupirocin, 1 Application, Each Nostril, BID NIFEdipine XL, 30 mg, Oral, Daily polyethylene glycol, 17 g, Oral, Daily potassium chloride, 40 mEq, Oral, q4h Followed by potassium chloride, 20 mEq, Oral, Once pregabalin, 50 mg, Oral, BID QUEtiapine, 100 mg, Oral, Nightly rOPINIRole, 5 mg, Oral, Nightly senna, 17.2 mg, Oral, Nightly sodium chloride, 10 mL, Intravenous, q12h Tiotropium Dorothy Monohydrate, 2 puff, Inhalation, Daily zonisamide, 300 mg, Oral, Daily [2] [3] PRN medications: acetaminophen FOLLOWED BY [START ON 12/21/2024] acetaminophen, albuterol, heparin flush, HYDROmorphone OR [DISCONTINUED] HYDROmorphone, metoclopramide OR metoclopramide, ondansetron, oxyCODONE OR oxyCODONE, sodium chloride, sodium chloride * Care Plan - Yovana Asif RN - 12/20/2024 4:27 AM EDT Problem: Adult Inpatient Plan of Care Goal: Plan of Care Review Outcome: Ongoing, Progressing Flowsheets (Taken 12/20/2024424) Progress: improving Plan of Care Reviewed With: patient Goal: Patient-Specific Goal (Individualized) Outcome: Ongoing, Progressing Flowsheets (Taken 12/19/20241999) Patient/Family-Specific Goals (Include Timeframe): pt will remain free from falls/injuries throughout shift by utilizing the call light before ambulating Individualized Care Needs: safety Anxieties, Fears or Concerns: none expressed Goal: Absence of Hospital-Acquired Illness or Injury Outcome: Ongoing, Progressing Intervention: Identify and Manage Fall Risk Flowsheets (Taken 12/19/20241999) Safety Promotion/Fall Prevention: activity supervised assistive device/personal items within reach clutter-free environment maintained fall prevention program maintained lighting adjusted mobility aid in reach nonskid shoes/slippers when out of bed room organization consistent safety round/check completed Intervention: Prevent Skin Injury Flowsheets (Taken 12/19/2024 1600 by Bouchra Rees RN) Body Position: weight shifting Goal: Optimal Comfort and Wellbeing Outcome: Ongoing, Progressing Intervention: Monitor Pain and Promote Comfort Flowsheets (Taken 12/20/2024424) Pain Management Interventions: medication (see MAR) position adjusted Goal: Readiness for Transition of Care Outcome: Ongoing, Progressing Problem: Fall Injury Risk Goal: Absence of Fall and Fall-Related Injury Outcome: Ongoing, Progressing Intervention: Promote Injury-Free Environment Flowsheets (Taken 12/19/20241999) Safety Promotion/Fall Prevention: activity supervised assistive device/personal items within reach clutter-free environment maintained fall prevention program maintained lighting adjusted mobility aid in reach nonskid shoes/slippers when out of bed room organization consistent safety round/check completed Problem: Infection Goal: Absence of Infection Signs and Symptoms Outcome: Ongoing, Progressing Problem: Skin Injury Risk Increased Goal: Skin Health and Integrity Outcome: Ongoing, Progressing Problem: Pain Acute Goal: Optimal Pain Control and Function Outcome: Ongoing, Progressing Problem: Mobility Impairment Goal: Optimal Mobility Outcome: Ongoing, Progressing Intervention: Optimize Mobility Flowsheets (Taken 12/20/2024 0425) Activity Management: activity adjusted per tolerance Problem: Cardiovascular Surgery Goal: Improved Activity Tolerance Outcome: Ongoing, Progressing Goal: Optimal Coping with Heart Surgery Outcome: Ongoing, Progressing Goal: Absence of Bleeding Outcome: Ongoing, Progressing Goal: Effective Bowel Elimination Outcome: Ongoing, Progressing Goal: Effective Cardiac Function Outcome: Ongoing, Progressing Goal: Optimal Cerebral Tissue Perfusion Outcome: Ongoing, Progressing Goal: Fluid and Electrolyte Balance Outcome: Ongoing, Progressing Goal: Blood Glucose Level Within Target Range Outcome: Ongoing, Progressing Goal: Absence of Infection Signs and Symptoms Outcome: Ongoing, Progressing Goal: Anesthesia/Sedation Recovery Outcome: Ongoing, Progressing Goal: Acceptable Pain Control Outcome: Ongoing, Progressing Goal: Nausea and Vomiting Relief Outcome: Ongoing, Progressing Goal: Effective Urinary Elimination Outcome: Ongoing, Progressing Goal: Effective Oxygenation and Ventilation Outcome: Ongoing, Progressing Problem: Comorbidity Management Goal: Maintenance of COPD Symptom Control Outcome: Ongoing, Progressing Goal: Blood Glucose Level Within Target Range Outcome: Ongoing, Progressing Goal: Maintenance of Heart Failure Symptom Control Outcome: Ongoing, Progressing Goal: Blood Pressure in Desired Range Outcome: Ongoing, Progressing Goal: Maintenance of Seizure Control Outcome: Ongoing, Progressing Problem: Self-Care Deficit Goal: Improved Ability to Complete Activities of Daily Living Outcome: Ongoing, Progressing * Care Plan - Bouchra Rees RN - 12/19/2024 5:15 PM EDT Problem: Adult Inpatient Plan of Care Goal: Plan of Care Review Outcome: Ongoing, Progressing Flowsheets Taken 12/18/2024 1243 by Bouchra Rees RN Progress: improving Taken 12/17/2024 0715 by Chari Francisco RN Plan of Care Reviewed With: patient Goal: Patient-Specific Goal (Individualized) Outcome: Ongoing, Progressing Flowsheets (Taken 12/18/2024 1241) Patient/Family-Specific Goals (Include Timeframe): patient will remain at a tolerable pain level asstated by the patient (0-3) throughout the entire shift 7a-7p Individualized Care Needs: pain control and comfort Anxieties, Fears or Concerns: pain Goal: Absence of Hospital-Acquired Illness or Injury Outcome: Ongoing, Progressing Intervention: Identify and Manage Fall Risk Flowsheets (Taken 12/18/20241999 by Lela Khan) Safety Promotion/Fall Prevention: lighting adjusted safety round/check completed Intervention: Prevent Skin Injury Flowsheets Taken 12/19/2024 1600 Body Position: weight shifting Taken 12/18/2024 1800 Skin Protection: protective footwear used pulse oximeter probe site changed transparent dressing maintained Intervention: Prevent and Manage VTE (Venous Thromboembolism) Risk Flowsheets (Taken 12/19/2024 1600) VTE Prevention/Management: bilateral SCDs (sequential compression devices) off medication Intervention: Prevent Infection Flowsheets (Taken 12/18/2024 1243) Infection Prevention: hand hygiene promoted personal protective equipment utilized rest/sleep promoted Goal: Optimal Comfort and Wellbeing Outcome: Ongoing, Progressing Intervention: Monitor Pain and Promote Comfort Flowsheets (Taken 12/19/2024 1325) Pain Management Interventions: medication (see MAR) Intervention: Provide Person-Centered Care Flowsheets (Taken 12/18/2024 1243) Trust Relationship/Rapport: care explained choices provided emotional support provided empathic listening provided questions answered questions encouraged reassurance provided thoughts/feelings acknowledged Goal: Readiness for Transition of Care Outcome: Ongoing, Progressing Intervention: Mutually Develop Transition Plan Flowsheets Taken 12/18/2024 1243 by Bouchra Rees, RN Equipment Needed After Discharge: none Anticipated Changes Related to Illness: none Transportation Concerns: none Concerns to be Addressed: no discharge needs identified Readmission Within the Last 30 Days: current reason for admission unrelated to previous admission Patient/Family Anticipated Services at Transition: none Patient/Family Anticipates Transition to: home Taken 12/18/2024 1058 by Arlene Pal Equipment Currently Used at Home: (thoracic walker) other (see comments) walker, standard wheelchair, manual Problem: Fall Injury Risk Goal: Absence of Fall and Fall-Related Injury Outcome: Ongoing, Progressing Intervention: Identify and Manage Contributors Flowsheets (Taken 12/18/2024 1243) Medication Review/Management: medications reviewed Self-Care Promotion: independence encouraged Intervention: Promote Injury-Free Environment Flowsheets (Taken 12/18/20241999 by Lela Khan) Safety Promotion/Fall Prevention: lighting adjusted safety round/check completed Problem: Infection Goal: Absence of Infection Signs and Symptoms Outcome: Ongoing, Progressing Intervention: Prevent or Manage Infection Flowsheets Taken 12/19/2024 0800 Isolation Precautions: protective Taken 12/18/2024 1243 Infection Management: aseptic technique maintained Fever Reduction/Comfort Measures: lightweight bedding lightweight clothing Problem: Skin Injury Risk Increased Goal: Skin Health and Integrity Outcome: Ongoing, Progressing Intervention: Optimize Skin Protection Flowsheets Taken 12/19/2024 1600 Activity Management: activity encouraged Head of Bed (HOB) Positioning: HOB elevated Taken 12/18/2024 1800 Skin Protection: protective footwear used pulse oximeter probe site changed transparent dressing maintained Taken 12/18/2024 1243 Pressure Reduction Techniques: frequent weight shift encouraged heels elevated off bed Pressure Reduction Devices: positioning supports utilized Intervention: Promote and Optimize Oral Intake Flowsheets (Taken 12/18/2024 1243) Oral Nutrition Promotion: rest periods promoted Problem: Pain Acute Goal: Optimal Pain Control and Function Outcome: Ongoing, Progressing Intervention: Optimize Psychosocial Wellbeing Flowsheets (Taken 12/18/2024 1243) Supportive Measures: active listening utilized decision-making supported goal-setting facilitated self-care encouraged self-reflection promoted Diversional Activities: television Spiritual Activities Assistance: spiritual support provided Intervention: Develop Pain Management Plan Flowsheets (Taken 12/19/2024 1325) Pain Management Interventions: medication (see MAR) Intervention: Prevent or Manage Pain Flowsheets (Taken 12/18/2024 1243) Sensory Stimulation Regulation: auditory stimulation minimized lighting decreased care clustered Complementary Therapy: aromatherapy utilized Bowel Elimination Promotion: adequate fluid intake promoted Sleep/Rest Enhancement: awakenings minimized consistent schedule promoted family presence promoted Medication Review/Management: medications reviewed Problem: Mobility Impairment Goal: Optimal Mobility Outcome: Ongoing, Progressing Intervention: Optimize Mobility Flowsheets Taken 12/19/2024 1600 Activity Management: activity encouraged Taken 12/18/2024 1243 Positioning/Transfer Devices: repositioning sheet Taken 12/18/2024 0900 Assistive Device Utilized: four wheel walker Problem: Cardiovascular Surgery Goal: Improved Activity Tolerance Outcome: Ongoing, Progressing Intervention: Optimize Tolerance for Activity Flowsheets (Taken 12/18/2024 1243) Environmental Support: calm environment promoted Self-Care Promotion: independence encouraged Goal: Optimal Coping with Heart Surgery Outcome: Ongoing, Progressing Intervention: Support Psychosocial Response to Surgery Flowsheets (Taken 12/18/2024 1243) Supportive Measures: active listening utilized decision-making supported goal-setting facilitated self-care encouraged self-reflection promoted Family/Support System Care: presence promoted involvement promoted support provided Goal: Absence of Bleeding Outcome: Ongoing, Progressing Intervention: Monitor and Manage Bleeding Flowsheets (Taken 12/18/2024 1243) Bleeding Management: dressing monitored Goal: Effective Bowel Elimination Outcome: Ongoing, Progressing Intervention: Enhance Bowel Motility and Elimination Flowsheets (Taken 12/18/2024 1243) Bowel Elimination Management: hygiene measures promoted Bowel Motility Enhancement: ambulation promoted fluid intake encouraged Goal: Effective Cardiac Function Outcome: Ongoing, Progressing Intervention: Optimize Cardiac Output and Blood Flow Flowsheets (Taken 12/18/2024 1243) Stabilization Measures: verbal stimulation provided legs elevated Dysrhythmia Management: pacing wires maintained Goal: Optimal Cerebral Tissue Perfusion Outcome: Ongoing, Progressing Intervention: Protect and Optimize Cerebral Perfusion Flowsheets Taken 12/19/2024 1712 Cerebral Perfusion Promotion: blood pressure monitored Taken 12/19/2024 1600 Head of Bed (HOB) Positioning: HOB elevated Taken 12/18/2024 1243 Glycemic Management: blood glucose monitored Fever Reduction/Comfort Measures: lightweight bedding lightweight clothing Sensory Stimulation Regulation: auditory stimulation minimized lighting decreased care clustered Goal: Fluid and Electrolyte Balance Outcome: Ongoing, Progressing Intervention: Monitor and Manage Fluid and Electrolyte Balance Flowsheets (Taken 12/18/2024 1243) Fluid/Electrolyte Management: electrolyte supplement adjusted fluids adjusted Goal: Blood Glucose Level Within Target Range Outcome: Ongoing, Progressing Intervention: Optimize Glycemic Control Flowsheets (Taken 12/18/2024 1243) Glycemic Management: blood glucose monitored Goal: Absence of Infection Signs and Symptoms Outcome: Ongoing, Progressing Intervention: Prevent or Manage Infection Flowsheets (Taken 12/18/2024 1243) Fever Reduction/Comfort Measures: lightweight bedding lightweight clothing Infection Prevention: hand hygiene promoted personal protective equipment utilized rest/sleep promoted Goal: Anesthesia/Sedation Recovery Outcome: Ongoing, Progressing Intervention: Optimize Anesthesia Recovery Flowsheets Taken 12/19/2024 1600 by Bouchra Rees, RN Patient Tolerance (IS): good Administration (IS): self-administered Level Incentive Spirometer (mL): 1000 Incentive Spirometer Predicted Level (mL): 1000 Number of Repetitions (IS): 8 Taken 12/18/20241999 by Lela Khan Safety Promotion/Fall Prevention: lighting adjusted safety round/check completed Taken 12/18/2024 1243 by Bouchra Rees RN Stabilization Measures: verbal stimulation provided legs elevated Reorientation Measures: glasses use encouraged Goal: Acceptable Pain Control Outcome: Ongoing, Progressing Intervention: Prevent or Manage Pain Flowsheets Taken 12/19/2024 1325 Pain Management Interventions: medication (see MAR) Taken 12/18/2024 1243 Complementary Therapy: aromatherapy utilized Diversional Activities: television Goal: Nausea and Vomiting Relief Outcome: Ongoing, Progressing Intervention: Prevent or Manage Nausea and Vomiting Flowsheets (Taken 12/18/2024 1243) Nausea/Vomiting Interventions: nausea triggers minimized sips of clear liquids given slow deep breathing encouraged stimuli minimized Goal: Effective Urinary Elimination Outcome: Ongoing, Progressing Intervention: Monitor and Manage Urinary Retention Flowsheets (Taken 12/18/2024 1243) Urinary Elimination Promotion: catheter patency maintained Goal: Effective Oxygenation and Ventilation Outcome: Ongoing, Progressing Intervention: Promote Airway Secretion Clearance Flowsheets (Taken 12/19/2024 1600) Patient Tolerance (IS): good Administration (IS): self-administered Level Incentive Spirometer (mL): 1000 Incentive Spirometer Predicted Level (mL): 1000 Number of Repetitions (IS): 8 Cough And Deep Breathing: done independently per patient Intervention: Optimize Oxygenation and Ventilation Flowsheets (Taken 12/18/2024 1243) Chest Tube Safety: all connections secured suction checked Problem: Comorbidity Management Goal: Maintenance of COPD Symptom Control Outcome: Ongoing, Progressing Intervention: Maintain COPD (Chronic Obstructive Pulmonary Disease) Symptom Control Flowsheets (Taken 12/18/2024 1243) Breathing Techniques/Airway Clearance: deep/controlled cough encouraged Medication Review/Management: medications reviewed Goal: Blood Glucose Level Within Target Range Outcome: Ongoing, Progressing Intervention: Monitor and Manage Glycemia Flowsheets (Taken 12/18/2024 1243) Medication Review/Management: medications reviewed Goal: Maintenance of Heart Failure Symptom Control Outcome: Ongoing, Progressing Intervention: Maintain Heart Failure Management Flowsheets (Taken 12/18/2024 1243) Medication Review/Management: medications reviewed Goal: Blood Pressure in Desired Range Outcome: Ongoing, Progressing Intervention: Maintain Blood Pressure Management Flowsheets (Taken 12/18/2024 1243) Medication Review/Management: medications reviewed Goal: Maintenance of Seizure Control Outcome: Ongoing, Progressing Intervention: Maintain Seizure Symptom Control Flowsheets (Taken 12/18/2024 1243) Sensory Stimulation Regulation: auditory stimulation minimized lighting decreased care clustered Medication Review/Management: medications reviewed Seizure Precautions: activity supervised clutter-free environment maintained Problem: Self-Care Deficit Goal: Improved Ability to Complete Activities of Daily Living Outcome: Ongoing, Progressing Intervention: Promote Activity and Functional [place] Flowsheets Taken 12/19/2024 1712 Adaptive Equipment Use: use encouraged Taken 12/19/2024 1515 Activity Assistance Provided: assistance, stand-by Taken 12/18/2024 1243 Self-Care Promotion: independence encouraged * Hospital Course - Andrew Paulson PA - 12/19/2024 12:10 PM EDT * Progress Notes - Bushra Pham PIG CONVEYOR OPERATOR - 12/19/2024 11:57 AM EDT Physical Therapy Treatment Patient Name: Beverley Antoine Today's Date: 12/19/2024 PT Discharge Recommendations: Home with assistance Equipment Recommended: Rollator Subjective The patient states, I am doing okay. Participants in Care Family/Caregiver Present: No Business Planner: Not Applicable Presentation Oxygen: Supplemental oxygen Nasal cannula 2 L/min Telemetry: Yes Lines and Tube: Y Chest Tube 1 and 2 Mediastinal 36 Fr. Pleural 28 Fr. (Active) Peripheral IV 12/17/24 Left Antecubital (Active) Peripheral IV 12/17/24 Anterior;Right;Upper Arm (Active) Pre-Session: Supine, Head of bed elevated, Lines intact Post-Session: Sitting in chair, Call light in reach, Lines intact, Chair alarm, RN notified Patientpositioned for comfort and pressure relief. Precautions Medical Precautions: Sternal, Fall precautions Objective Pain No complaints of pain. Delirium Screening RASS: Alert and calm Confusion Assessment Method-ICU (CAM-ICU/PCAM-ICU) Feature 3: Altered Level of Consciousness: Negative Therapeutic Activity (27 minutes) PIG CONVEYOR OPERATOR provided the patient with a printed [facility] handout with sternal precautions information; Verbal, visual, and tactile cues provided throughout treatment session for self-pacing, fall prevention, pursed lip breathing and adherence to sternal precautions. Therapist monitored patient's vital signs throughout session to assess patient's continued tolerance to activity. Please see gait training section for BP details. Please see bed mobility and transfer section for further details. Bed Mobility Bed Mobility Interventions: Verbal cues provided for correct BUE placement and for sequencing. Bed Mobility Exam: Rolling/Turning Level of [place]: Contact guard Physical/Nonphysical Assist: Verbal Cues, Set-up required Bed Mobility Exam: Scooting/Bridging Level of [place]: Contact guard (to scoot to edge of bed with cues to adhere to sternal precautions.) Physical/Nonphysical Assist: Verbal Cues, Set-up required Bed Mobility Exam: Supine to Sit Level of [place]: Minimum assist (75% patient's effort) Physical/Nonphysical Assist: Verbal Cues, HOB elevated, Set-up required Transfers Transfer Intervention: Verbal cues provided for correct bilateral hand and foot placement during sit to stand transfers. Transfer Exam: Sit to stand Level of [place]: Contact guard Physical/Nonphysical Assist: Verbal Cues, Set-up required Assistive Device: Rollator Transfer Exam: Stand to Sit Level of [place]: Contact guard Physical/Nonphysical Assist: Verbal Cues, Set-up required Assistive Device: Rollator Gait Training (12 minutes) Device: Rollator Assistance: Contact guard assist, Minimal verbal cues, Minimal tactile cues Distance: 100 feet then patient reported feeling dizzy and sweating patient seated and BP obtained 108/38(60); patient's recliner brought to patient and patient seated in recliner with BLE's elevated; BP obtained again and was 111/44(66); patient reporting not sweating anymore and don't feel dizzy at end of session; RN made aware of patient's comments and all BP readings; Gait Analysis: decreased bilateral foot clearance, decreased step length, decreased summer, mild forward trunk lean; Gait Training Interventions: Verbal cues provided for upright posture, increased stride, improved bilateral foot clearance, safe rollator management and increased body awareness related to walker position. Therapist monitored patient's vital signs continuously throughout session to assess patient's continued tolerance to activity. Assessment The patient's complaints of dizziness and sweating limited gait training. RN made aware. The patient required cues to adhere to sternal precautions. The patient received cues for safe/improved quality of gait pattern and safe walker management. The patient continues to present with the following impairments: decreased strength, decreased balance, decreased activity tolerance and decreased safety awareness. The patient will continue to benefit from skilled PT services to address deficits listed to decrease fall risk and maximize functional mobility levels to promote a safe return to the home. PT Recommendations Discharge Destination: Home with assistance Discharge Equipment: Rollator Plan Continue with established PT plan of care 2 - 5 times per week to progress towards PT goals. PT Goals PT GOAL DETAILS Goal Established Date Time Frame Goal Status PT Goal 1: Pt will perform supine <> sit with SBA, HOB flat, while maintaining sternal precautions 12/18/24 2 weeks PT Goal 2: Pt will perform sit to stand and bed to chair transfer Mod I with LRAD and maintain sternal precautions 12/18/24 2 weeks PT Goal 3: Pt will ambulate 600' Mod I with LRAD and no losses of balance or rest breaks 12/18/24 2weeks PT Goal 4: Pt will be IND with HEP and d/c recs 12/18/24 2 weeks Written by Bushra Pham PTA on 12/19/24 at 1:43 PM. * Progress Notes - Mo Jaeger, MARIA A - 12/19/2024 9:07 AM EDT Images from the original note were not included. CVT Progress Note 24 Hour Events/HPI: Review of Systems: A complete ROS was obtained. All were negative except as noted in HPI. Objective: All laboratory data, images, tracings, and vital sign data for past 24 hours are personally reviewed unless otherwise noted. @PATIENTWT@ , Weight: 69.9 kg (154 lb) , Ht Readings from Last 1 Encounters: 12/18/24 1.6 m (5' 2.99 ) , Body mass index is 28.71 kg/m??. VITALS (last 24h) 12/19/2024 2:20 AM 12/19/2024 3:00 AM 12/19/2024 4:00 AM 12/19/2024 5:00 AM 12/19/2024 6:00 AM 12/19/2024 7:00 AM 12/19/2024 8:36 AM Vitals Systolic 129 98 117 117 116 140 Diastolic 61 61 64 68 76 77 Heart Rate 76 84 88 84 84 91 101 Temp 36.8 C Resp 04 19 23 13 15 20 PAP: (28-30)/(11-17) 28 CO: [3.8 L/min-4.9 L/min] 4.2 L/min CI: [2.2 L/min/m2-2.8 L/min/m2] 2.5 L/min/m2 O2 Delivery Method: Nasal cannula I & O Summary Intake/Output Summary (Last 24 hours) at 12/19/2024 0907 Last data filed at 12/19/2024 0600 Gross per 24 hour Intake -- Output 2795 ml Net -2795 ml LABS LABS (PAST 18Labs in last 18 hours CBC WBC 13.36 (H) Hb 9.8 (L) Plt 111 (L) Hct 28.7 (L) ANC ?? INR ??, PTT ??, Anti-Xa ?? BMP Na 140 Cl 106 BUN 15 Glu 132 (H) K 4.2 Co2 26 Cr 0.71 Ca 8.4 (L) iCa ?? Mg 2.5 (H), Phos 3.4 Lactate ?? LFT AST ?? AlkPhos ?? T Prot ?? ALK ?? Bili ?? Alb ?? D.Bili ?? HOURS) === 12/17/24 === XR ABDOMEN 1 VIEW - Narrative - CLINICAL INDICATION: ileus TECHNIQUE: Supine radiograph of the abdomen. COMPARISON: None. FINDINGS: Moderate colonic stool burden. Nonobstructive bowel gas pattern. No pneumoperitoneum. No abnormal intra-abdominal calcifications. Degenerative changes in the lower lumbar spine. - Impression - No radiographic features to suggest obstruction or ileus. No obvious pneumoperitoneum. CRITICAL RESULT: No. COMMUNICATION: Per this written report. Drafted by Luis Jang MD on 12/19/2024 6:26 AM Final report signed by Luis Jang MD on 12/19/2024 6:28 AM MEDICATIONS Current Scheduled Medications[1] Current Continuous Medications[2] Current PRN Medications[3] Physical Exam: GENERAL: WD, WN, NAD. NECK: Supple, no JVD, no evidence of bruit bilaterally RESP/CHEST: Symmetric expansion; non labored. CTA bilaterally. Midsternal incision CDI and Sternum stable CARD: regular rate and rhythm, normal S1 and S2, no murmur, rub, or gallop EXTREMITIES: No lower extremity edema present. No cyanosis or clubbing. Pedal pulses palpable +2. GI: No organomegaly or masses. Soft, Nontender, nondistended. BS present and normoactive x 4 quadrants INCISION: Clean, dry, intact NEURO: AAOx4. Motor intact and no focal deficits PSYCH: Mood and affect congruent and appropriate to situation. Assessment and Plan: Miss Antoine is a 59yo female who underwent 3-vessel coronary artery bypass grafting with Dr. Al on 12/17/2024. Keep tubes and wires Ambulate Advance diet as tolerated Diurese as indicated Transfer to telemetry when bed available Assessment & Plan CAD (coronary artery disease) HLD (hyperlipidemia) Bipolar affective disorder (CMS/HCC) Diabetes (CMS/HCC) Seizures (CMS/HCC) Lung cancer (CMS/HCC) Anxiety Tobacco dependence Cancer (CMS/HCC) Chronic obstructive pulmonary disease with (acute) exacerbation (CMS/HCC) 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 S/P CABG x 3 Acute blood loss anemia Thrombocytopenia (CMS/HCC) Electrolyte abnormality Cardiac volume overload Hypertension Nausea [1] acetaminophen, 1,000 mg, Oral, q8h aspirin, 81 mg, Oral, Daily atorvastatin, 80 mg, Oral, Nightly docusate sodium, 100 mg, Oral, BID enoxaparin, 40 mg, Subcutaneous, Daily insulin lispro, 0-5 Units, Subcutaneous, TID with meals insulin lispro, 0-3 Units, Subcutaneous, Twice at night lidocaine, 1 patch, Apply externally, q24h methocarbamol, 500 mg, Oral, 4x daily metoprolol tartrate, 25 mg, Oral, BID mupirocin, 1 Application, Each Nostril, BID NIFEdipine XL, 30 mg, Oral, Daily polyethylene glycol, 17 g, Oral, Daily pregabalin, 50 mg, Oral, BID rOPINIRole, 5 mg, Oral, Nightly senna, 17.2 mg, Oral, Nightly simethicone, 80 mg, Oral, 4x daily sodium chloride, 10 mL, Intravenous, q12h Tiotropium Dorothy Monohydrate, 2 puff, Inhalation, Daily zonisamide, 300 mg, Oral, Daily [2] [3] PRN medications: albuterol, glucose OR dextrose 10 % OR dextrose 10 % OR glucagon (human recombinant), HYDROmorphone OR HYDROmorphone, ondansetron, oxyCODONE OR oxyCODONE, sodium chloride, sodium chloride * Care Plan - Bill Lela - 12/19/2024 12:33 AM EDT Problem: Adult Inpatient Plan of Care Goal: Plan of Care Review Outcome: Ongoing, Progressing Flowsheets Taken 12/18/2024 1243 by Bouchra Rees, RN Progress: improving Taken 12/17/2024 0715 by Chari Francisco RN Plan of Care Reviewed With: patient Goal: Patient-Specific Goal (Individualized) Outcome: Ongoing, Progressing Flowsheets (Taken 12/18/2024 1241 by Bouchra Rees, RN) Patient/Family-Specific Goals (Include Timeframe): patient will remain at a tolerable pain level asstated by the patient (0-3) throughout the entire shift 7a-7p Individualized Care Needs: pain control and comfort Anxieties, Fears or Concerns: pain Goal: Absence of Hospital-Acquired Illness or Injury Outcome: Ongoing, Progressing Goal: Optimal Comfort and Wellbeing Outcome: Ongoing, Progressing Problem: Fall Injury Risk Goal: Absence of Fall and Fall-Related Injury Outcome: Ongoing, Progressing Problem: Infection Goal: Absence of Infection Signs and Symptoms Outcome: Ongoing, Progressing Problem: Cardiovascular Surgery Goal: Improved Activity Tolerance Outcome: Ongoing, Progressing Goal: Absence of Bleeding Outcome: Ongoing, Progressing Problem: Self-Care Deficit Goal: Improved Ability to Complete Activities of Daily Living Outcome: Ongoing, Progressing * Assessment & Plan Note - Anna Cortez MD - 12/18/2024 2:37 PM EDT Associated Problem(s): Hypertension - started nifedipine - goal SBP <140 * Assessment & Plan Note - Anna Cortez MD - 12/18/2024 2:37 PM EDT Associated Problem(s): Nausea (Resolved 12/21/2024) -Zofran and compazine does not help - gastric bubble seen on CXR - simethicone and reglan scheduled - haldol prn * Assessment & Plan Note - Anna Cortez MD - 12/18/2024 2:37 PM EDT Associated Problem(s): 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 -Monitor per protocol. * Assessment & Plan Note - Anna Cortez MD - 12/18/2024 2:37 PM EDT Associated Problem(s): S/P CABG x 3 - CABGx3 (PAREDES-LAD, RSV-OM, RSV-PDA) & LLE EVH with Dr. Al - will continue inotropic support as needed and wean appropriately throughout postoperative course - volume resuscitation in immediate postoperative period as needed - resusme ASA, statin, BB as appropriate - increased metoprolol to 25mg BID * Assessment & Plan Note - Anna Cortez MD - 12/18/2024 2:37 PM EDT Associated Problem(s): Acute blood loss anemia -received 2u pRBCs intra-op - continue to monitor - transfuse as indicated * Assessment & Plan Note - Anna Cortez MD - 12/18/2024 2:37 PM EDT Associated Problem(s): Thrombocytopenia (CMS/HCC) (Resolved 12/21/2024) -Continue to trend * Assessment & Plan Note - Anna Cortez MD - 12/18/2024 2:37 PM EDT Associated Problem(s): Electrolyte abnormality (Resolved 12/21/2024) - replace per ICU protocol * Assessment & Plan Note - Anna Cortez MD - 12/18/2024 2:37 PM EDT Associated Problem(s): Anxiety -Monitor per protocol. * Assessment & Plan Note - Anna Cortez MD - 12/18/2024 2:37 PM EDT Associated Problem(s): Cancer (CMS/HCC) -Monitor per protocol. * Assessment & Plan Note - Anna Cortez MD - 12/18/2024 2:37 PM EDT Associated Problem(s): Cardiac volume overload (Resolved 12/21/2024) -Diuresis * Assessment & Plan Note - Anna Cortez MD - 12/18/2024 2:37 PM EDT Associated Problem(s): CAD (coronary artery disease) - See s/p CABG x3 * Assessment & Plan Note - Anna Cortez MD - 12/18/2024 2:37 PM EDT Associated Problem(s): HLD (hyperlipidemia) -restart statin as appropriate * Assessment & Plan Note - Anna Cortez MD - 12/18/2024 2:37 PM EDT Associated Problem(s): Bipolar affective disorder (CMS/HCC) -Previously on meds - since been well controlled * Assessment & Plan Note - Anna Cortez MD - 12/18/2024 2:37 PM EDT Associated Problem(s): Diabetes (CMS/HCC) -Pre-diabetes - last A1C 5.8 - resume meds when appropriate - continue to monitor BG * Assessment & Plan Note - Anna Cortez MD - 12/18/2024 2:37 PM EDT Associated Problem(s): Seizures (CMS/HCC) -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 - well controlled with Zonegran - restart when appropriate * Assessment & Plan Note - Anna Cortez MD - 12/18/2024 2:37 PM EDT Associated Problem(s): Lung cancer ([facility]) - hx 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 Stopped smoking 3 days prior to surgery * Assessment & Plan Note - Anna Cortez MD - 12/18/2024 2:37 PM EDT Associated Problem(s): Chronic obstructive pulmonary disease with (acute) exacerbation ([facility]) -not on home O2 - Resumed home albuterol and spiriva * Progress Notes - Anna Cortez MD - 12/18/2024 2:33 PM EDT Procedures 12/18/24 Beverley Antoine is a 59 y.o. female who presents with CAD (coronary artery disease). If applicable, patient is s/p Procedure(s) and Anesthesia Type: * CABG, 2 OR MORE VESSELS - General. Patient is 1 Day Post-Op with Cardiothoracic Surgery. Past 24 hours: PM: Lasix 40, metolazone 5 mg--> CVP 12-15. diet clears, Cleviprex gtt, titrate off NTG, Metop scheduled for AM. Eval for diuresis in AM. Lytes at 1000. Simethicone for large gastric bubble--wean to NC. Nsg to place NG if N/V. AM: Transition off insulin gtt. Resume home meds. Nifedipine 30 daily. Increase metop to 25 BID. D/C PAC. Edited by: Marlin Bloom, ASSISTANT EXECUTIVE HOUSEK[employer] at 12/18/2024 1255 Lines/Drains/Tubes: Patient Lines/Drains/Airways Status Active Active LDAs Name Placement date Placement time Site Days CVC Single Lumen 12/17/24 Right Internal jugular 12/17/24 0816 Internal jugular 1 Peripheral IV 12/17/24 Left Antecubital 12/17/24 0722 Antecubital 1 Peripheral IV 12/17/24 Anterior;Right;Upper Arm 12/17/24 1300 Arm 1 Urethral Catheter Temperature probe 16 Fr. 12/17/24 0803 -- 1 Y Chest Tube 1 and 2 Mediastinal 36 Fr. Pleural 28 Fr. 12/17/24 1425 -- 1 Arterial Line 12/17/24 Right Radial 12/17/24 0752 Radial 1 Pulmonary Artery Catheter 12/17/24 Internal jugular Right 12/17/24 0816 Internal jugular 1 GCS: [place] Coma Scale Score: 15 Review of Systems 14 point ROS reviewed and otherwise negative or unobtainable except as noted above or in HPI. Vital signs: Vitals: 12/18/24 1326 BP: Pulse: Resp: Temp: SpO2: 94% Intake/Output Summary (Last 24 hours) at 12/18/2024 1433 Last data filed at 12/18/2024 1200 Gross per 24 hour Intake 3760.03 ml Output 3077 ml Net 683.03 ml Physical Exam: Sedation was held for the purposes of examination. Physical Exam Constitutional: Appearance: Normal appearance. HENT: Head: Normocephalic and atraumatic. Right Ear: External ear normal. Left Ear: External ear normal. Nose: Nose normal. Mouth/Throat: Pharynx: Oropharynx is clear. Eyes: Extraocular Movements: Extraocular movements intact. Conjunctiva/sclera: Conjunctivae normal. Cardiovascular: Rate and Rhythm: Normal rate and regular rhythm. Pulses: Normal pulses. Pulmonary: Effort: Pulmonary effort is normal. Breath sounds: Wheezing present. Abdominal: Palpations: Abdomen is soft. Tenderness: There is no abdominal tenderness. Genitourinary: Comments: Quijano in place Musculoskeletal: Cervical back: Normal range of motion. Right lower leg: No edema. Left lower leg: No edema. Skin: General: Skin is warm. Neurological: General: No focal deficit present. Mental Status: She is alert and oriented to person, place, and time. Psychiatric: Mood and Affect: Mood normal. Behavior: Behavior normal. Labs in last 18 hours: CBC WBC 13.44 (H) Hb 10.6 (L); 10.6 (L) Plt 134 (L) Hct 30.9 (L); 30.9 (L) ANC ?? INR ??, PTT ??, Anti-Xa ?? BMP Na 138 Cl 104 BUN 20 Glu 148 (H) K 4.3 Co2 21 (L) Cr 0.94 Ca 7.8 (L) iCa 3.9 (L) Mg 3.0 (H), Phos 5.3 (H) Lactate 2.9 (H) LFT AST ?? AlkPhos ?? T Prot ?? ALK ?? Bili ?? Alb ?? D.Bili ?? Imaging as available: === 12/17/24 === XR CHEST 1 VIEW - Narrative - CLINICAL INDICATION: Post-Op Cardiac Surgery TECHNIQUE: XR CHEST 1 VIEW COMPARISON: Chest radiograph December 17, 2024 FINDINGS: Median sternotomy wires intact. Interval removal of endotracheal tube and enteric tube. Additional support hardware remains in stable position. Cardiac silhouette and mediastinal contours are stable.No consolidation. Similar- appearing small right pleural effusion. No pneumothorax. Redemonstration of right basilar atelectasis. - Impression - Interval removal of endotracheal tube and enteric tube. Otherwise, stable exam. CRITICAL RESULT: No. COMMUNICATION: Per this written report. By electronically signing this report, I, the attending physician, attest that I have personally reviewed the images/data for the above examination(s) and agree with the final edited report. Drafted by Rafaela Loyola MD on 12/18/2024 8:07 AM Final report signed by Tiago Miranda MD on 12/18/2024 9:48 AM Reviewed and agree with above. Assessment and Plan: This patient is critically ill. 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 Stopped smoking 3 days prior to surgery Chronic obstructive pulmonary disease with (acute) exacerbation (CMS/HCC) Present on Admission: Yes -not on home O2 - Resumed home albuterol and spiriva 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 Present on Admission: Yes -Monitor per protocol. S/P CABG x 3 Present on Admission: Not Applicable - CABGx3 (PAREDES-LAD, RSV-OM, RSV-PDA) & LLE EVH with Dr. Al - will continue inotropic support as needed and wean appropriately throughout postoperative course - volume resuscitation in immediate postoperative period as needed - resusme ASA, statin, BB as appropriate - increased metoprolol to 25mg BID Acute blood loss anemia Present on Admission: No -received 2u pRBCs intra-op - continue to monitor - transfuse as indicated Thrombocytopenia (CMS/HCC) Present on Admission: Yes -Continue to trend Electrolyte abnormality Present on Admission: No - replace per ICU protocol Anxiety Present on Admission: Yes -Monitor per protocol. Cancer (CMS/HCC) Present on Admission: Yes -Monitor per protocol. Cardiac volume overload Present on Admission: No -Diuresis Hypertension Present on Admission: Unknown - started nifedipine - goal SBP <140 Nausea Present on Admission: Unknown -Zofran and compazine does not help - gastric bubble seen on CXR - simethicone and reglan scheduled - haldol prn Non-Hospital Problems Angina pectoris Carpal tunnel syndrome Vitamin D deficiency Insomnia Chronic systolic HF (heart failure) (CMS/HCC) Overview Signed 11/08/2024 10:33 AM by Chastity Antunez RN Added automatically from request for surgery [id number] Depression S/P total knee replacement, left Feeding: Adult diet Diet texture: Clear liquid; Dietary fluid restriction / 24h: 1800 ml Fluid P.O. (mL): 120 mL Analgesia: Pain Score: 5 HYDROmorphone - 1 MG/ML, 1 MG/ML oxyCODONE - 10 MG, 5 MG pregabalin - 25 MG, 50 MG zonisamide - 100 MG, 100 MG Sedation: RASS RASS: Alert and calm Level of Consciousness: Alert Thromboembolic prophylaxis: Last Anticoag Admin enoxaparin (Lovenox) syringe 40 mg Given 40 mg at 0856 Frequency: Daily There are additional administrations since 12/15/24 1437 that are not shown. No unadministered anticoagulant orders found. Head of bed: >30 Mobility Orders: Mobility Protocol: Strict Bedrest HOB: Other HOB Other: with HOB elevated 30 degrees within 30 minutes of admission if hemodynamically stable Extremity Precautions: No Extremity Precautions Other mobility precautions: Other precautions Other mobility precautions: Sternal precautions Other Other: Supine if IABP or femoral line in place. Out of bed day of surgery if clinical status is appropriate. Ulcer prophylaxis & GI Meds: docusate sodium - 100 MG metoclopramide - 5 MG/ML polyethylene glycol - 17 g senna - 8.6 MG Glucose control: GLU: 148 mg/dL (12/18 0950) Spontaneous breathing trials: Bowel regimen (see GI meds above): GI Symptoms: Nausea Most Recent BM Date: 12/16/24 (per patient) Invasive lines: Patient Lines/Drains/Airways Status Active Active LDAs Name Placement date Placement time Site Days CVC Single Lumen 12/17/24 Right Internal jugular 12/17/24 0816 Internal jugular 1 Peripheral IV 12/17/24 Left Antecubital 12/17/24 0722 Antecubital 1 Peripheral IV 12/17/24 Anterior;Right;Upper Arm 12/17/24 1300 Arm 1 Urethral Catheter Temperature probe 16 Fr. 12/17/24 0803 -- 1 Y Chest Tube 1 and 2 Mediastinal 36 Fr. Pleural 28 Fr. 12/17/24 1425 -- 1 Arterial Line 12/17/24 Right Radial 12/17/24 0752 Radial 1 Pulmonary Artery Catheter 12/17/24 Internal jugular Right 12/17/24 0816 Internal jugular 1 De-escalation: Continue routine ICU care Anna Cortez MD Cosigned by Doug Otero MD at 12/23/2024 8:52 PM EDT Associated attestation - Doug Otero MD - 12/23/2024 8:52 PM EDT I saw and evaluated the patient with the resident/fellow. I discussed the case with the resident/fellow and agree with the findings and plan as documented. * Care Plan - Bouchra Rees RN - 12/18/2024 12:57 PM EDT Problem: Adult Inpatient Plan of Care Goal: Plan of Care Review Outcome: Ongoing, Progressing Flowsheets Taken 12/18/2024 1243 by Bouchra Rees, RN Progress: improving Taken 12/17/2024 0715 by Chari Francisco RN Plan of Care Reviewed With: patient Goal: Patient-Specific Goal (Individualized) Outcome: Ongoing, Progressing Flowsheets (Taken 12/18/2024 1241) Patient/Family-Specific Goals (Include Timeframe): patient will remain at a tolerable pain level asstated by the patient (0-3) throughout the entire shift 7a-7p Individualized Care Needs: pain control and comfort Anxieties, Fears or Concerns: pain Goal: Absence of Hospital-Acquired Illness or Injury Outcome: Ongoing, Progressing Intervention: Identify and Manage Fall Risk Flowsheets (Taken 12/18/2024 1243) Safety Promotion/Fall Prevention: activity supervised lighting adjusted mobility aid in reach fall prevention program maintained nonskid shoes/slippers when out of bed safety round/check completed toileting scheduled Intervention: Prevent Skin Injury Flowsheets Taken 12/18/2024 1243 Skin Protection: protective footwear used pulse oximeter probe site changed skin sealant/moisture barrier applied transparent dressing maintained Taken 12/18/2024 1200 Body Position: turned Intervention: Prevent and Manage VTE (Venous Thromboembolism) Risk Flowsheets (Taken 12/18/2024 1200) VTE Prevention/Management: bilateral SCDs (sequential compression devices) off medication Intervention: Prevent Infection Flowsheets (Taken 12/18/2024 1243) Infection Prevention: hand hygiene promoted personal protective equipment utilized rest/sleep promoted Goal: Optimal Comfort and Wellbeing Outcome: Ongoing, Progressing Intervention: Monitor Pain and Promote Comfort Flowsheets (Taken 12/18/2024 1017) Pain Management Interventions: medication (see MAR) Intervention: Provide Person-Centered Care Flowsheets (Taken 12/18/2024 1243) Trust Relationship/Rapport: care explained choices provided emotional support provided empathic listening provided questions answered questions encouraged reassurance provided thoughts/feelings acknowledged Goal: Readiness for Transition of Care Outcome: Ongoing, Progressing Intervention: Mutually Develop Transition Plan Flowsheets (Taken 12/18/2024 1243) Equipment Needed After Discharge: none Anticipated Changes Related to Illness: none Transportation Concerns: none Concerns to be Addressed: no discharge needs identified Readmission Within the Last 30 Days: current reason for admission unrelated to previous admission Patient/Family Anticipated Services at Transition: none Patient/Family Anticipates Transition to: home Problem: Fall Injury Risk Goal: Absence of Fall and Fall-Related Injury Outcome: Ongoing, Progressing Intervention: Identify and Manage Contributors Flowsheets (Taken 12/18/2024 1243) Medication Review/Management: medications reviewed Self-Care Promotion: independence encouraged Intervention: Promote Injury-Free Environment Flowsheets (Taken 12/18/2024 1243) Safety Promotion/Fall Prevention: activity supervised lighting adjusted mobility aid in [facility] fall prevention program maintained nonskid shoes/slippers when out of bed safety round/check completed toileting scheduled Problem: Infection Goal: Absence of Infection Signs and Symptoms Outcome: Ongoing, Progressing Intervention: Prevent or Manage Infection Flowsheets Taken 12/18/2024 1243 Infection Management: aseptic technique maintained Fever Reduction/Comfort Measures: lightweight bedding lightweight clothing Taken 12/18/2024 0800 Isolation Precautions: protective Problem: Skin Injury Risk Increased Goal: Skin Health and Integrity Outcome: Ongoing, Progressing Intervention: Optimize Skin Protection Flowsheets Taken 12/18/2024 1243 Pressure Reduction Techniques: frequent weight shift encouraged heels elevated off bed Pressure Reduction Devices: positioning supports utilized Skin Protection: protective footwear used pulse oximeter probe site changed skin sealant/moisture barrier applied transparent dressing maintained Taken 12/18/2024 1200 Activity Management: up in chair Head of Bed (HOB) Positioning: HOB elevated Intervention: Promote and Optimize Oral Intake Flowsheets (Taken 12/18/2024 1243) Oral Nutrition Promotion: rest periods promoted Problem: Pain Acute Goal: Optimal Pain Control and Function Outcome: Ongoing, Progressing Intervention: Optimize Psychosocial Wellbeing Flowsheets (Taken 12/18/2024 1243) Supportive Measures: active listening utilized decision-making supported goal-setting facilitated self-care encouraged self-reflection promoted Diversional Activities: television Spiritual Activities Assistance: spiritual support provided Intervention: Develop Pain Management Plan Flowsheets (Taken 12/18/2024 1017) Pain Management Interventions: medication (see MAR) Intervention: Prevent or Manage Pain Flowsheets (Taken 12/18/2024 1243) Sensory Stimulation Regulation: auditory stimulation minimized lighting decreased care clustered Complementary Therapy: aromatherapy utilized Bowel Elimination Promotion: adequate fluid intake promoted Sleep/Rest Enhancement: awakenings minimized consistent schedule promoted family presence promoted Medication Review/Management: medications reviewed Problem: Mobility Impairment Goal: Optimal Mobility Outcome: Ongoing, Progressing Intervention: Optimize Mobility Flowsheets Taken 12/18/2024 1243 Positioning/Transfer Devices: repositioning sheet Taken 12/18/2024 1200 Activity Management: up in chair Taken 12/18/2024 0900 Assistive Device Utilized: four wheel walker Problem: Cardiovascular Surgery Goal: Improved Activity Tolerance Outcome: Ongoing, Progressing Intervention: Optimize Tolerance for Activity Flowsheets (Taken 12/18/2024 1243) Environmental Support: calm environment promoted Self-Care Promotion: independence encouraged Goal: Optimal Coping with Heart Surgery Outcome: Ongoing, Progressing Intervention: Support Psychosocial Response to Surgery Flowsheets (Taken 12/18/2024 1243) Supportive Measures: active listening utilized decision-making supported goal-setting facilitated self-care encouraged self-reflection promoted Family/Support System Care: presence promoted involvement promoted support provided Goal: Absence of Bleeding Outcome: Ongoing, Progressing Intervention: Monitor and Manage Bleeding Flowsheets (Taken 12/18/2024 1243) Bleeding Management: dressing monitored Goal: Effective Bowel Elimination Outcome: Ongoing, Progressing Intervention: Enhance Bowel Motility and Elimination Flowsheets (Taken 12/18/2024 1243) Bowel Elimination Management: hygiene measures promoted Bowel Motility Enhancement: ambulation promoted fluid intake encouraged Goal: Effective Cardiac Function Outcome: Ongoing, Progressing Intervention: Optimize Cardiac Output and Blood Flow Flowsheets (Taken 12/18/2024 1243) Stabilization Measures: verbal stimulation provided legs elevated Dysrhythmia Management: pacing wires maintained Goal: Optimal Cerebral Tissue Perfusion Outcome: Ongoing, Progressing Intervention: Protect and Optimize Cerebral Perfusion Flowsheets Taken 12/18/2024 1243 Glycemic Management: blood glucose monitored Fever Reduction/Comfort Measures: lightweight bedding lightweight clothing Sensory Stimulation Regulation: auditory stimulation minimized lighting decreased care clustered Taken 12/18/2024 1200 Head of Bed (HOB) Positioning: HOB elevated Goal: Fluid and Electrolyte Balance Outcome: Ongoing, Progressing Intervention: Monitor and Manage Fluid and Electrolyte Balance Flowsheets (Taken 12/18/2024 1243) Fluid/Electrolyte Management: electrolyte supplement adjusted fluids adjusted Goal: Blood Glucose Level Within Target Range Outcome: Ongoing, Progressing Intervention: Optimize Glycemic Control Flowsheets (Taken 12/18/2024 1243) Glycemic Management: blood glucose monitored Goal: Absence of Infection Signs and Symptoms Outcome: Ongoing, Progressing Intervention: Prevent or Manage Infection Flowsheets (Taken 12/18/2024 1243) Fever Reduction/Comfort Measures: lightweight bedding lightweight clothing Infection Prevention: hand hygiene promoted personal protective equipment utilized rest/sleep promoted Goal: Anesthesia/Sedation Recovery Outcome: Ongoing, Progressing Intervention: Optimize Anesthesia Recovery Flowsheets (Taken 12/18/2024 1243) Stabilization Measures: verbal stimulation provided legs elevated Patient Tolerance (IS): fair Safety Promotion/Fall Prevention: activity supervised lighting adjusted mobility aid in reach fall prevention program maintained nonskid shoes/slippers when out of bed safety round/check completed toileting scheduled Administration (IS): instruction provided, follow-up Reorientation Measures: glasses use encouraged Level Incentive Spirometer (mL): 800 Incentive Spirometer Predicted Level (mL): 1500 Number of Repetitions (IS): 6 Goal: Acceptable Pain Control Outcome: Ongoing, Progressing Intervention: Prevent or Manage Pain Flowsheets Taken 12/18/2024 1243 Complementary Therapy: aromatherapy utilized Diversional Activities: television Taken 12/18/2024 1017 Pain Management Interventions: medication (see MAR) Goal: Nausea and Vomiting Relief Outcome: Ongoing, Progressing Intervention: Prevent or Manage Nausea and Vomiting Flowsheets (Taken 12/18/2024 1243) Nausea/Vomiting Interventions: nausea triggers minimized sips of clear liquids given slow deep breathing encouraged stimuli minimized Goal: Effective Urinary Elimination Outcome: Ongoing, Progressing Intervention: Monitor and Manage Urinary Retention Flowsheets (Taken 12/18/2024 1243) Urinary Elimination Promotion: catheter patency maintained Goal: Effective Oxygenation and Ventilation Outcome: Ongoing, Progressing Intervention: Promote Airway Secretion Clearance Flowsheets (Taken 12/18/2024 1243) Patient Tolerance (IS): fair Administration (IS): instruction provided, follow-up Level Incentive Spirometer (mL): 800 Incentive Spirometer Predicted Level (mL): 1500 Number of Repetitions (IS): 6 Intervention: Optimize Oxygenation and Ventilation Flowsheets (Taken 12/18/2024 1243) Chest Tube Safety: all connections secured suction checked Problem: Comorbidity Management Goal: Maintenance of COPD Symptom Control Outcome: Ongoing, Progressing Intervention: Maintain COPD (Chronic Obstructive Pulmonary Disease) Symptom Control Flowsheets (Taken 12/18/2024 1243) Breathing Techniques/Airway Clearance: deep/controlled cough encouraged Medication Review/Management: medications reviewed Goal: Blood Glucose Level Within Target Range Outcome: Ongoing, Progressing Intervention: Monitor and Manage Glycemia Flowsheets (Taken 12/18/2024 1243) Medication Review/Management: medications reviewed Goal: Maintenance of Heart Failure Symptom Control Outcome: Ongoing, Progressing Intervention: Maintain Heart Failure Management Flowsheets (Taken 12/18/2024 1243) Medication Review/Management: medications reviewed Goal: Blood Pressure in Desired Range Outcome: Ongoing, Progressing Intervention: Maintain Blood Pressure Management Flowsheets (Taken 12/18/2024 1243) Medication Review/Management: medications reviewed Goal: Maintenance of Seizure Control Outcome: Ongoing, Progressing Intervention: Maintain Seizure Symptom Control Flowsheets (Taken 12/18/2024 1243) Sensory Stimulation Regulation: auditory stimulation minimized lighting decreased care clustered Medication Review/Management: medications reviewed Seizure Precautions: activity supervised clutter-free environment maintained * Consults - Nona Gallardo RD - 12/18/2024 12:18 PM EDTAssociated Order(s): IP CONSULT TO NUTRITION SERVICES Adult Nutrition Evaluation Note Beverley Antoine 59 y.o. female CSN: [id number] Room/Bed 213/213A Nutrition evaluation type: assessment Reason for evaluation: provider consult Hospital course: 59 y.o. F presents from referral for CAD. Echo confirmed she had a heart attack and LHC a few weeks ago. Chest pain is exertional and last 20 min. 12/17: CABG x3. Nausea and gastric bubble, Simethicone and Reglan scheduled. Clear Liquid diet initiated. Past medical/ surgical history: Past Medical History[1] Surgical History[2] Social history: Additional comments: Visited pt in room. Had no wt loss, GI symptoms to report pre-admission. Has started experiencing some nausea, pt suspects from meds. Appetite has been good, noted somewhat weakened d/t clear liquids. No further questions/concerns at this time. Vitals and Basic Assessment: BP: 137/75 Temp: 36.8 ??C (98.2 ??F) Invasive Ventilator Initiated (ETT/Trach Only): Yes Oxygen Therapy: Supplemental oxygen O2 Delivery Method: Nasal cannula [place] Coma Scale Score: 15 Donato/Cubbin Pressure Risk Score: 37 Most Recent BM Date: 12/16/24 (per patient) GI Symptoms: Nausea Edema: Generalized Allergies: NKFA Medications: Current Medications[3] Meds were reviewed: Yes Labs: Lab Results Component Value Date GLUCOSE 148 (H) 12/18/2024 BUN 20 12/18/2024 CREATININE 0.94 12/18/2024 BCR 21 12/18/2024 NA 138 12/18/2024 K 4.3 12/18/2024 CL 104 12/18/2024 CO2 21 (L) 12/18/2024 ALBUMIN 3.8 12/18/2024 ALKPHOS 117 12/17/2024 BILITOT <0.2 (L) 12/17/2024 Lab Results Component Value Date CALCIUM 7.8 (L) 12/18/2024 PHOS 5.3 (H) 12/18/2024 Phos downtrending Lactate 2.9 HgA1C 5.8 (12/13) Anthropometrics: Height: 160 cm (5' 2.99 ) Weight: 73.5 kg (162 lb 0.6 oz) BMI (Calculated): 28.71 Weight Evaluation: Overweight (BMI 25-29.9) [place] Body Weight (kg): 52.3 Percent [place] Body Weight: 141 Adjusted Body Weight (kg): 57.6 Wt Readings from Last 10 Encounters: 12/18/24 73.5 kg (162 lb 0.6 oz) 12/13/24 70.3 kg (154 lb 15.7 oz) 11/08/24 71.8 kg (158 lb 4.6 oz) Estimated Needs: Kcal/ K-30 Kcal Provided: 7117-9007 Kcal Needs Based On: Adjusted weight Gm Protein/ Kg : 1.2-1.5 Protein Provided: 69-86 Protein Needs Based On: Adjusted weight ML/ K Fluid Needs Based On: Other (Comment) (fluid restriction per team) Metabolic Cart Study Results: Current Nutrition Intake: Diet Order: Adult Diet Diet Texture: Clear liquid Adult Fluid Restriction / 24 hr: 1800 ml fluid Diet Experience and Nutrition History: Pertinent home medications: Vitamin D, metFORMIN, B 12, folic acid Roman Catholic needs: Nutrition Focused Physical Exam: Unable to Complete Exam: Potential for patient discomfort/ agitation Physical exam performed on (date): 12/18 Visual assessment noted no signs of malnutrition. Assessment of Malnutrition: Malnutrition Identified: Additional Information Needed Nutrition Problem: Increased nutrient needs protein related to CABG as evidenced by need for immuno supportive proteins for recovery outcomes. Status of Nutrition Diagnosis: New Nutrition Interventions and Recommendations: - Cardiac diet as appropriate. Monitor glu levels and add CC2 modification as needed. - Adding Impact AR 2x daily once diet advanced past Clear Liquids. Nutrition Monitoring and Goals: - Monitor labs, elytes - Wt maintenance - PO > 75% Acuity Level: 3 Elaine Bishop, Selector Packer Nona Gallardo, REE [1] Past Medical History: Diagnosis Date Cancer (CMS/HCC) Lung CHF (congestive heart failure) (CMS/HCC) COPD (chronic obstructive pulmonary disease) (CMS/HCC) Coronary artery disease Diabetes mellitus (CMS/HCC) Hyperlipidemia Myocardial infarction (CMS/HCC) Pneumonia Stroke (CMS/HCC) [2] Past Surgical History: Procedure Laterality Date ABDOMINAL SURGERY multiple, benign tumors and scar tissue ANKLE SURGERY BRONCHOSCOPY CENTRAL VENOUS CATHETER INSERTION CORONARY ARTERY BYPASS GRAFT 12/17/2024 Coronary artery bypass grafting x3, endoscopic vein harvest -left lower extremity -greater saphenous. -Vein from the ascending aorta to obtuse marginal coronary artery -Vein from the ascending aorta to the distal right coronary artery -Left internal mammary artery skeletonized in Situ to the left anterior descending coronary artery. (Dr. Boris Al) HERNIA REPAIR HYSTERECTOMY TOTAL KNEE ARTHROPLASTY Bilateral [3] Current Facility-Administered Medications: acetaminophen (Tylenol) tablet 1,000 mg, 1,000 mg, Oral, q8h, Trent, Shazia K, ASSISTANT EXECUTIVE HOUSEKEEPER, 1,000 mg at 12/18/24 0933 albumin human 5 % infusion 250 mL, 250 mL, Intravenous, q30 min PRN, Dawson Mclaughlin MD, 250 mL at 12/17/24 1552 albuterol 108 (90 Base) MCG/ACT inhaler 2 puff, 2 puff, Inhalation, q6h PRN, Anna Cortez MD aspirin chewable tablet 81 mg, 81 mg, Oral, Daily, Dawson Mclaughlin MD, 81 mg at 12/18/24 0856 atorvastatin (Lipitor) tablet 80 mg, 80 mg, Oral, Nightly, Dawson Mclaughlin MD, 80 mg at 12/17/24 2039 glucose (Glutose) 40 % oral gel 15-30 grams of glucose, 15-30 grams of glucose, Sublingual, q15 minPRN OR dextrose 10 % (D10W) bolus 125 mL, 125 mL, Intravenous, q15 min PRN OR dextrose 10 %(D10W) bolus 250 mL, 250 mL, Intravenous, q15 min PRN OR glucagon (human recombinant) injection1 mg, 1 mg, Intramuscular, q15 min PRN, Marlin Bloom APRN docusate sodium (Colace) capsule 100 mg, 100 mg, Oral, BID, Dawson Mclaughlin MD, 100 mg at 12/18/24 0856 enoxaparin (Lovenox) syringe 40 mg, 40 mg, Subcutaneous, Daily, Boris Al MD, 40 mg at 12/18/24 0856 HYDROmorphone (Dilaudid) injection 0.25 mg, 0.25 mg, Intravenous, q2h PRN, 0.25 mg at 12/18/24 1326OR HYDROmorphone (Dilaudid) injection 0.5 mg, 0.5 mg, Intravenous, q2h PRN, Anna Cortez MD, 0.5 mg at 12/18/24 0242 insulin lispro (Admelog) 100 units/mL injection - Correction - Standard Dose, 0- 5 Units, Subcutaneous, TID with meals, Marlin Bloom, INDER insulin lispro (Admelog) injection - Correction - Nighttime Dose, 0-3 Units, Subcutaneous, Twice atnight, Marlin Bloom APRN lidocaine (Lidoderm) 5 % patch 1 patch, 1 patch, Apply externally, q24h, Anna Cortez MD, 1 patch at 12/17/24 1810 methocarbamol (Robaxin) tablet 500 mg, 500 mg, Oral, 4x daily, Anna Cortez MD, 500 mg at 12/18/24 1315 metoclopramide (Reglan) injection 5 mg, 5 mg, Intravenous, TID, Anna Cortez MD, 5 mg at 12/18/24 1133 metoprolol tartrate (Lopressor) tablet 25 mg, 25 mg, Oral, BID, Marlin Bloom APRN mupirocin (Bactroban) 2 % ointment 1 Application, 1 Application, Each Nostril, BID, Dawson Mclaughlin MD, 1 Application at 12/18/24 0856 NIFEdipine XL (Procardia XL) 24 hr tablet 30 mg, 30 mg, Oral, Daily, Anna Cortez MD, 30 mg at 12/18/24 1315 ondansetron (Zofran) injection 4 mg, 4 mg, Intravenous, q6h PRN, Dawson Mclaughlin MD, 4 mg at 12/18/24 0553 oxyCODONE (Roxicodone) immediate release tablet 5 mg, 5 mg, Oral, q4h PRN OR oxyCODONE (Roxicodone) immediate release tablet 10 mg, 10 mg, Oral, q4h PRN, Anna Cortez MD, 10 mg at 12/18/24 1017 polyethylene glycol (Miralax) packet 17 g, 17 g, Oral, Daily, Dawson Mclaughlin MD, 17 g at 12/18/24 0856 pregabalin (Lyrica) capsule 50 mg, 50 mg, Oral, BID, Anna Cortez MD, 50 mg at 12/18/24 0929 rOPINIRole (Requip) tablet 5 mg, 5 mg, Oral, Nightly, Anna Cortez MD senna (Senokot) tablet 17.2 mg, 17.2 mg, Oral, Nightly, Dawson Mclaughlin MD, 17.2 mg at 12/17/242038 simethicone (Mylicon) chewable tablet 80 mg, 80 mg, Oral, 4x daily, Shazia Newman, ASSISTANT EXECUTIVE HOUSEKEEPER, 80 mg at 12/18/24 1315 sodium chloride 0.9 % flush 10 mL, 10 mL, Intravenous, q12h, Boris Al MD, 10 mL at 12/18/24 0635 sodium chloride 0.9 % flush 10 mL, 10 mL, Intravenous, q1h PRN, Boris Al MD sodium chloride 0.9 % flush 20 mL, 20 mL, Intravenous, q1h PRN, Boris Al MD [START ON 12/19/2024] Tiotropium Dorothy Monohydrate (Spiriva Respimat) 2.5 MCG/ACT inhaler 2 puff, 2 puff, Inhalation, Daily, Boris Al MD zonisamide (Zonegran) capsule 300 mg, 300 mg, Oral, Daily, Anna Cortez MD, 300 mg at 12/18/24 0929 * Progress Notes - Arlene Pal - 12/18/2024 10:18 AM EDT Case Management Adult Initial Progress Note Beverley Antoine 59 y.o. female CSN: [id number] Admission: 12/17/2024 5:11 AM Primary Problem: CAD (coronary artery disease) PCP: Marge Woodard MD Emergency Contact: Extended Emergency Contact Information Primary Emergency Contact: ArashWander Mobile Relation: Spouse Business Planner needed? No Insurance: Primary Visit Coverage Payer Plan Sponsor Code Group Number Group Name HUMANA MEDICARE HU[employer]NA MEDICARE [id number] Primary Visit Coverage Subscriber Subscriber ID Subscriber Name Subscriber SSN Subscriber Address [id number] [place]livia[place]everley M [id number] [place] [address] Patient information: Primary Caregiver: Self Accompanied by/Relationship: Wander Antoine/ ([phone]) Support System: Immediate family Daily Living Activities: Functional Status: Independent Living Arrangements: Spouse/Significant other, Family (, [id number]) Type of Residence: Private residence, Single Level (ramps to enter) [address] [facility] [address] Current DME: Equipment Currently Used at Home: other (see comments), walker, standard, wheelchair, manual (thoracic walker) Income Information: Income/Expense Information: Income exceeds expenses Current Resources Utilized: None Housing Circumstances-Z Codes: Housing Circumstances (select all that apply): None Applicable Anticipated Discharge Date: TBD Patient's Discharge Goal: Home with family Assistance Available at Discharge: Family Discharge Transport: Follow Up Transport: /family Home Health / Home Infusion / Outpatient Dialysis Services: N/A Living Will/Advance Directive/Power of Asbestos Abatement Worker /Guardian: Advance Directive: Patient has advance directive, copy not in chart Information Provided on Healthcare Directives: No Pre-existing DNR/DNI Order: No Patient Requests Assistance: No Social Drivers of Health Food Insecurity: No Food Insecurity (12/18/2024) Hunger Vital Sign Worried About Running Out of Food in the Last Year: Never true Ran Out of Food in the Last Year: Never true Alcohol Use: Not At Risk (04/25/2023) Received from [facility] AUDIT-C Q1: How often do you have a drink containing alcohol?: Never Q2: How many drinks containing alcohol do you have on a typical day when you are drinking?: Patientdoes not drink Q3: How often do you have six or more drinks on one occasion?: Never Housing Stability: Unknown (12/18/2024) Housing Stability Vital Sign Unable to Pay for Housing in the Last Year: No Number of Times Moved in the Last Year: Not on file Homeless in the Last Year: No Tobacco Use: High Risk (12/13/2024) Patient History Smoking Tobacco Use: Every Day Smokeless Tobacco Use: Never Passive Exposure: Not on file Transportation Needs: No Transportation Needs (12/18/2024) PRAPARE - Transportation Lack of Transportation (Medical): No Lack of Transportation (Non-Medical): No Depression: Not at risk (09/14/2021) Received from [facility] PHQ-2 PHQ-2 Total Score: 0 Utilities: Not At Risk (12/18/2024) Utilities Threatened with loss of utilities: No Stress: Not on file Intimate Partner Violence: Not At Risk (12/18/2024) Humiliation, Afraid, Rape, and Kick questionnaire Fear of Current or Ex-Partner: No Emotionally Abused: No Physically Abused: No Sexually Abused: No Physical Activity: Not on file Social Connections: Not on file Financial Resource Strain: Not on file - Pt denied above socioeconomic needs and no request was made for resources for those needs. Additional Comments: SW spoke with pt at bedside for initial assessment; pt accompanied by /NOK Wander Antoine ([phone]). Pt does not have a POA/LW/AD. Pt lives with and TIFFANIE in a single-story home with ramps to enter; address in chart confirmed. Pt reports she is independent with ambulation and ADLsat baseline, though does report she sometimes struggles with her balance. Home DME consists of thoracic walker, wc, and standard walker; states the DME is from taking care of elderly family. Pt is not on HD or home O2/CPAP/BiPAP. reports that he could provide initial FT 24/7 assistance upon DC Sundays through Tuesdays while TIFFANIE and pt's mother could provide assistance rest of week. Pt confirms PCP as Marge Woodard MD in [place]. transports pt to appointments and could transport upon DC. Pt has never worked with an INDUSTRIAL ILLUMINATING ENGINEER, has never stayed inpatient for physical rehab, and is unsure she will need physical rehab upon DC. Pt prefers [facility] in [place]. Pt confirms insurance as [employer]. No further SW concerns identified at this time. SW will monitor pt's progress and will follow up with DC planning and needs as appropriate. FOUZIA Zaragoza * Progress Notes - Carley Carnes - 12/18/2024 9:28 AM EDT Physical Therapy Evaluation Patient Name: Beverley Antoine Today's Date: 12/18/2024 PT Discharge Recommendations: Home with assistance Equipment Recommended: Rollator History Beverley Antoine is 59 y.o. female admitted 12/17/2024 for work-up of CAD (coronary artery disease). Problem List Active Hospital Problems Diagnosis Date Noted 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 12/17/2024 S/P CABG x 3 12/17/2024 Acute blood loss anemia 12/17/2024 Thrombocytopenia ([facility]) 12/17/2024 Electrolyte abnormality 12/17/2024 Cardiac volume overload 12/17/2024 Cancer ([facility]) 11/08/2024 CAD (coronary artery disease) 11/07/2024 HLD (hyperlipidemia) 11/07/2024 Seizures ([facility]) 11/07/2024 Lung cancer ([facility]) 11/07/2024 Tobacco dependence 11/07/2024 Bipolar affective disorder ([facility]) 11/07/2024 Diabetes ([facility]) 11/07/2024 Anxiety 11/07/2024 Chronic obstructive pulmonary disease with (acute) exacerbation ([facility]) 03/07/2023 Procedures 12/17/2024 Procedure(s): CABG, 2 OR MORE VESSELS Past Medical History Patient has a past medical history of Cancer ([facility]), CHF (congestive heart failure) ([facility]), COPD (chronic obstructive pulmonary disease) ([facility]), Coronary artery disease, Diabetes mellitus ([facility]), Hyperlipidemia, Myocardial infarction ([facility]), Pneumonia, and Stroke ([facility]). Past Surgical History Patient has a past surgical history that includes Central venous catheter insertion; Total knee arthroplasty (Bilateral); Bronchoscopy; Hernia repair; Hysterectomy; Ankle surgery; Abdominal surgery; and Coronary artery bypass graft (12/17/2024). Precautions Medical Precautions: Sternal, Fall precautions Subjective Pt agreeable to PT session. Participants in Care Family/Caregiver Present: Yes Family/Caregiver: Spouse Presentation Oxygen Therapy: Supplemental oxygen O2 Delivery Method: Nasal cannula O2 Flow Rate (L/min): 4 L/min Lines and Tubes: Telemetry Arterial Line 12/17/24 Right Radial (Active) CVC Single Lumen 12/17/24 Right Internal jugular (Active) Urethral Catheter Temperature probe 16 Fr. (Active) Y Chest Tube 1 and 2 Mediastinal 36 Fr. Pleural 28 Fr. (Active) Pulmonary Artery Catheter 12/17/24 Internal jugular Right (Active) Peripheral IV 12/17/24 Left Antecubital (Active) Peripheral IV 12/17/24 Anterior;Right;Upper Arm (Active) Pre-Session: Sitting in chair, Chair alarm, Lines intact Pre-Session Comments: RN agreeable to therapy Post-Session: Sitting in chair, Chair alarm, Lines intact, RN notified, Call light in reach Post-Session Comments: All needs met Home Living/Set-up Lives With: Spouse, Family Home Type: House Home Adaptive Equipment: Rolling walker, Rollator, Wheelchair-manual Home Layout: One level (ramp to enter) Bathroom: Tub/Shower: Walk-in shower, Built-in shower seat Bathroom: Toilet: Standard Prior Level of Function Receives Help From: No assist required prior to admission Level of Mobility: Ambulatory- community Mobility [place]: Independent gait without device History of Falls: Yes (hx of epilepsy) ADL Performance: Independent Patient/Family Goals To feel better and go home Objective Pain Pt reported incisional pain but did not rate. RN aware and provided pt with pain meds prior to session. Pt positioned for comfort at end of session. Delirium Screening RASS: Alert and calm Confusion Assessment Method-ICU (CAM-ICU/PCAM-ICU) Feature 3: Altered Level of Consciousness: Negative Cognition Overall Cognitive Status: Within Functional Limits Arousal/Alertness: Appropriate responses to stimuli Mood/Behavior: Alert Orientation Level: Oriented X4 Single Step Commands: Consistently Multi-Step Commands: Consistently Method of Communication: Verbal Vision - Basic Assessment Baseline Vision: Glasses distance Right Upper Extremity Examination RUE Assessment: Within Functional Limits Manual Muscle Testing - RUE: (not formally assessed 2/2 sternal precautions) Sensation Light Touch: Right Upper Extremity: Intact Left Upper Extremity Examination LUE ROM Assessment LUE Assessment: Within Functional Limits Manual Muscle Testing - LUE Manual Muscle Testing - LUE: (not formally assessed 2/2 sternal precautions) Sensation Light Touch: Left Upper Extremity: Intact Right Lower Extremity Examination RLE ROM Assessment RLE Assessment: Within Functional Limits Manual Muscle Testing - RLE Manual Muscle Testing - RLE: Within functional limits Sensation Light Touch: Right Lower Extremity: Intact Left Lower Extremity Examination LLE Assessment: Within Functional Limits Manual Muscle Testing: Within functional limits Sensation Light Touch: Left Lower Extremity: Intact Transfers Transfer Exam: Sit to stand Level of [place]: Contact guard Physical/Nonphysical Assist: Verbal Cues, Moderate cues, 1 person + 1 person to manage equipment Assistive Device: Rollator Transfer Exam: Stand to Sit Level of [place]: Contact guard Physical/Nonphysical Assist: Verbal Cues, Moderate cues, 1 person + 1 person to manage equipment Assistive Device: Rollator Ambulation Device: Rollator Apparatus: Chair follow Assistance: Contact guard assist, Moderate verbal cues, Additional assist needed for line management Distance : 90' Ambulation Comments: Pt demonstrated mild forward flexed posture and decreased step length and summer. Pt required no rest breaks Balance Postural Appearance Posture: Rounded shoulders Static Sitting Balance Static Sitting-Balance Support: Feet supported Static Sitting-Level of Assistance: Standby assist Static Standing Balance Static Standing-Balance Support: Right upper extremity support, Left upper extremity support Static Standing-Level of Assistance: Standby assist Dynamic Standing Balance Dynamic Standing-Balance Support: Right upper extremity support, Left upper extremity support Dynamic Standing Level of Assistance: Contact guard Therapeutic Activity (11 minutes) Pt participated in therapeutic activities including functional transfers and ambulation to improve strength, balance, endurance and independence with functional mobility. Verbal and tactile cues provided by therapist for hand placement and optimal body mechanics to maintain sternal precautions and improve safety and efficiency with sit to stand transfers. Pt completed transfers with CGA for safety/balance. Cues provided for upright relaxed posture, to maintain proximity to AD, and for pacing during ambulation. Pt maintained vital signs WNL during mobility tasks. Standardized Assessments [facility] 6-Clicks Mobility Assessment Difficulty patient has turning over in bed (including adjusting bedclothes, sheets, and blankets)?:A little Difficulty patient has sitting down on and standing up from a chair with arms (wheelchair, bedside commode, etc.)?: A little Difficulty patient has moving from lying on back to sitting on the side of the bed?: A little How much help does the patient need moving to and from a bed to a chair (including a wheelchair)?: A little How much help does the patient need to walk in hospital room?: A little How much help does the patient need climbing 3-5 steps with a railing?: A little [facility] 6-Clicks Mobility Assessment Total : 18 No data recorded Assessment In addition to PT initial assessment, pt participated in therapeutic activities. Pt tolerated PT interventions with no adverse effects and maintained vital signs WNL. Pt primarily limited by surgicalpain that is exacerbated by movement. Pt presents with impairments listed below and would benefit from continued skilled PT intervention to progress functional mobility and return to prior level of fu nction. Impairments: Decreased endurance, ventilation, and/or gas exchange, Pain, Impaired functional mobility/transfers, Impaired balance, Impaired gait dynamics/performance, Decreased strength Activity Limitations: Inability to ambulate independently, Inability to transfer independently, Inability to ambulate community distances, Inability to complete ADLs independently Participation Restrictions: Self-care, Home management, Community leisure Activity Tolerance: Tolerates 10-20 minutes of activity without rest Evaluation/Treatment Tolerance: Patient limited by pain, Patient limited by fatigue Diagnosis: impaired functional mobility and activity tolerance Rehab Potential: Good, to achieve stated therapy goals Eval Complexity History Profile: 1 - 2 personal factors and/or comorbidities Clinical Presentation: Evolving clinical presentation with changing characteristics Clinical Decision Making: Moderate complexity PT Recommendations Discharge Destination: Home with assistance Discharge Equipment: Rollator Plan Planned PT Interventions Balance training, Bed mobility training, Gait training, Transfer training, ROM, Strengthening, Functional Mobility, Caregiver training PT Frequency 2 - 5 times per week PT Duration 2 weeks Goals PT GOAL DETAILS Time Frame PT Goal 1: Pt will perform supine <> sit with SBA, HOB flat, while maintaining sternal precautions 2 weeks PT Goal 2: Pt will perform sit to stand and bed to chair transfer Mod I with LRAD and maintain sternal precautions 2 weeks PT Goal 3: Pt will ambulate 600' Mod I with LRAD and no losses of balance or rest breaks 2 weeks PT Goal 4: Pt will be IND with HEP and d/c recs 2 weeks Written by Carley Carnes on 12/18/24 at 2:00 PM. * Progress Notes - Chikis Vaughn - 12/18/2024 9:27 AM EDT Occupational Therapy Evaluation Patient Name: Beverley Antoine Today's Date: 12/18/2024 OT Discharge Recommendations: Home with assistance Equipment Recommended: Rollator History Beverley Antoine is 59 y.o. female admitted 12/17/2024 for work-up of CAD (coronary artery disease). Problem List Active Hospital Problems Diagnosis Date Noted 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 12/17/2024 S/P CABG x 3 12/17/2024 Acute blood loss anemia 12/17/2024 Thrombocytopenia ([facility]) 12/17/2024 Electrolyte abnormality 12/17/2024 Cardiac volume overload 12/17/2024 Cancer ([facility]) 11/08/2024 CAD (coronary artery disease) 11/07/2024 HLD (hyperlipidemia) 11/07/2024 Seizures ([facility]) 11/07/2024 Lung cancer ([facility]) 11/07/2024 Tobacco dependence 11/07/2024 Bipolar affective disorder ([facility]) 11/07/2024 Diabetes ([facility]) 11/07/2024 Anxiety 11/07/2024 Chronic obstructive pulmonary disease with (acute) exacerbation ([facility]) 03/07/2023 Procedures 12/17/2024 Procedure(s): CABG, 2 OR MORE VESSELS Past Medical History Patient has a past medical history of Cancer ([facility]), CHF (congestive heart failure) ([facility]), COPD (chronic obstructive pulmonary disease) ([facility]), Coronary artery disease, Diabetes mellitus ([facility]), Hyperlipidemia, Myocardial infarction ([facility]), Pneumonia, and Stroke ([facility]). Past Surgical History Patient has a past surgical history that includes Central venous catheter insertion; Total knee arthroplasty (Bilateral); Bronchoscopy; Hernia repair; Hysterectomy; Ankle surgery; Abdominal surgery; and Coronary artery bypass graft (12/17/2024). Precautions Medical Precautions: Sternal, Fall precautions Subjective I feel pretty good. Participants in Care Family/Caregiver Present: Yes Family/Caregiver: Spouse Presentation Oxygen Therapy: Supplemental oxygen O2 Delivery Method: Nasal cannula O2 Flow Rate (L/min): 4 L/min Lines and Tubes: Telemetry Arterial Line 12/17/24 Right Radial (Active) CVC Single Lumen 12/17/24 Right Internal jugular (Active) Urethral Catheter Temperature probe 16 Fr. (Active) Y Chest Tube 1 and 2 Mediastinal 36 Fr. Pleural 28 Fr. (Active) Pulmonary Artery Catheter 12/17/24 Internal jugular Right (Active) Peripheral IV 12/17/24 Left Antecubital (Active) Peripheral IV 12/17/24 Anterior;Right;Upper Arm (Active) Pre-Session: Sitting in chair, Chair alarm, Lines intact Pre-Session Comments: RN agreeable to therapy Post-Session: Sitting in chair, Chair alarm, Lines intact, RN notified, Call light in reach Post-Session Comments: All needs met Home Living/Set-up Lives With: Spouse, Family Home Type: House Home Adaptive Equipment: Rolling walker, Rollator, Wheelchair-manual Home Layout: One level (ramp to enter) Bathroom: Tub/Shower: Walk-in shower, Built-in shower seat Bathroom: Toilet: Standard Prior Level of Function Receives Help From: No assist required prior to admission Level of Mobility: Ambulatory- community Mobility [place]: Independent gait without device History of Falls: Yes (hx of epilepsy) ADL Performance: Independent Patient/Family Goals Statement To get better and go home. Objective Pain Pt reporting sternal pain: unrated Pillow support provided at end of session and RN aware. Delirium Screening RASS: Alert and calm Confusion Assessment Method-ICU (CAM-ICU/PCAM-ICU) Feature 3: Altered Level of Consciousness: Negative Cognition Overall Cognitive Status: Within Functional Limits Arousal/Alertness: Appropriate responses to stimuli Mood/Behavior: Alert Orientation Level: Oriented X4 Single Step Commands: Consistently Multi-Step Commands: Consistently Method of Communication: Verbal Vision - Basic Assessment Baseline Vision: Glasses distance Right Upper Extremity Examination RUE ROM Assessment RUE Assessment: Within Functional Limits Manual Muscle Testing - RUE: (not formally assessed 2/2 sternal precautions) Sensation Light Touch: Right Upper Extremity: Intact Left Upper Extremity Examination LUE ROM Assessment LUE Assessment: Within Functional Limits Manual Muscle Testing - LUE: (not formally assessed 2/2 sternal precautions) Sensation Light Touch: Left Upper Extremity: Intact Right Lower Extremity Examination RLE ROM Assessment RLE Assessment: Within Functional Limits Manual Muscle Testing - RLE: Within functional limits Sensation Light Touch: Right Lower Extremity: Intact Left Lower Extremity Examination LLE ROM Assessment LLE Assessment: Within Functional Limits Manual Muscle Testing: Within functional limits Sensation Light Touch: Left Lower Extremity: Intact Transfers Transfer Exam: Sit to stand Level of [place]: Contact guard Physical/Nonphysical Assist: Verbal Cues, Moderate cues, 1 person + 1 person to manage equipment Assistive Device: Rollator Transfer Exam: Stand to Sit Level of [place]: Contact guard Physical/Nonphysical Assist: Verbal Cues, Moderate cues, 1 person + 1 person to manage equipment Assistive Device: Rollator Balance Postural Appearance Posture: Rounded shoulders Static Sitting Balance Static Sitting-Balance Support: Feet supported Static Sitting-Level of Assistance: Standby assist Static Standing Balance Static Standing-Balance Support: Right upper extremity support, Left upper extremity support Static Standing-Level of Assistance: Standby assist Dynamic Standing Balance Dynamic Standing-Balance Support: Right upper extremity support, Left upper extremity support Dynamic Standing Level of Assistance: Contact guard Self-Care Interventions Self Care/Home Management (ADLs) Time Entry: 10 Self-Care Interventions: Pt educated on sternal precautions prior to mobility and importance of carryover. Pt verbalized understanding but demonstrated fair(- ) carryover. Pt. participated in functional endurance tasks in preparation for high level ADL routines. Pt. completed sit to stand from recliner with CGA. Pt. completed 90ft navigation task at hallway level to simulate ADL's in home environment with CGA and rollator. Pt. tolerated task well with no safety concerns noted and no rest break required. Cues also provided throughout session to promote upright posture, activity pacing, and pursed lip breathing with improved carryover noted with session progression. OT monitored vital signs tiff sely throughout session to assess for patient???s tolerance to treatment. Additional time spent educating patient/family on ADLs with sternal precautions and potential needs for AE/DME at discharge. Pt educated on role of OT, discharge recommendations, and expectations for mobility while inpatient.Pt verbalized understanding but would benefit from continued education to improve carryover. Standardized Assessments [facility] 6-Click Daily Activities Help from Other: Don/Doff Regular Lower Body Clothings: A lot Help From Other: Bathing: A lot Help From Other: Toileting: A lot Help From Other: Don/Doff Upper Body Clothings: Little Help From Other: Grooming: Little Help From Other: Eating Meals: None [facility] 6 Click - Daily Activities Score: 16 Assessment In addition to OT evaluation, pt participated in OT session with a focus on ADL retraining and functional endurance. Pt tolerated session with fair energy for task. Pt is most limited by endurance and pain. Pt would benefit from continued skilled OT services to address AE/DME training, activity tolerance, and overall muscle power needed for increased independence with ADLs and functional mobility. OT Findings: Impaired ADL performance, Impaired IADL performance, Decreased endurance/ventilation/gas exchange, Impaired functional mobility, Impaired balance Evaluation/Treatment Tolerance: Patient limited by fatigue, Patient limited by pain Rehab Potential: Good, to achieve stated therapy goals Eval Complexity Occupational Profile: Expanded review of medical/therapy records and additional review of physical,cognitive, or psychosocial history Performance Deficits: Activities of daily living (ADLs), Instrumental activities of daily living (IADLs), Body structures, Personal, Physical Clinical Decision Making: Moderate Overall Eval complexity: Moderate OT Recommendations Discharge Destination: Home with assistance Discharge Equipment: Rollator Plan Planned OT Interventions ADL retraining, IADL retraining, Balance training, Bed mobility Training, Transfer training, Functional mobility, Caregiver education OT Frequency 2 - 5 times per week OT Duration 2 weeks Goals OT GOAL DETAILS Time Frame OT Goal 1: Pt will complete total body dressing skills with modified independence and appropriate adaptive device. 2 weeks OT Goal 2: Pt will complete toileting skills with modified independence and appropriate adaptive device. 2 weeks OT Goal 3: Pt will complete functional transfers with modified independence and appropriate adaptive device to increase independence with toilet transfers. 2 weeks OT Goal 4: Pt will independently adhere to sternal precautions during all ADL tasks and functional transfers. 2 weeks Written by Chikis Vaughn on 12/18/24 at 2:08 PM. * Shiela Marcus RN - 12/18/2024 8:00 AM EDT Images from the original note were not included. [id number] Recovery From Heart Surgery: The First Few Weeks During the first few weeks after heart surgery, you?ll be regaining your energy and strength. Your health care provider will let you know what you can and can?t do as you get better. Take things slowly. And rest when you get tired. Walking Walking is one of the easiest and best ways to help yourself get better. When you walk, your legs pump blood to your heart. This improves blood flow throughout your body. Choose a safe place with a level surface. A local park or a mall are good choices. Start by walking for 5 minutes. Walk a littlelonger each day. And walk with a friend if you can. Driving Your body needs to heal before you drive. Your reflexes will be slow for a while. And some of your medicines can make you drowsy. Let others drive until your surgeon says you can drive again. Wear your seat belt when you are in a car. Lifting For the first 6 weeks, don?t lift, push, or pull more than 10 pounds ( 4.5 kg). Your health care provider may give you specific limits on how much you can lift. Follow their instructions. Showering You may feel weak the first few times you shower at home. Ask someone to stand nearby in case you need help. Don't use very hot water. It can affect your blood flow and make you dizzy. Working Your health care provider can advise you about the best plan for returning to work. You may be ableto return part-time to a desk job 6 weeks after your surgery. If you have a more active job, check with your surgeon. Sexual activity Sex is generally safe for most people within 2 to 4 weeks after uncomplicated CABG (coronary arterybypass graft) surgery. Talk with your surgeon about when it's safe for you to resume sexual activity. Your feelings It is common to feel a little depressed or frustrated while healing after major surgery. You might feel cheerful and energetic one day. And you may feel cranky and tired the next. You may find it hard to think clearly or to sleep. Or you may not be hungry. These things will get better soon. Try notto withdraw from your family and friends. Keep talking to, listening to, and supporting each other. What to watch for Watch for any signs of infection at your incision site. These include: ? Fever ? Chills ? Redness ? Drainage ? Foul-smelling odor ? Pain that gets worse Call your health care provider if any of these occur. Your provider will show you how to take your pulse. Call your provider right away if you develop a fast, slow, or irregular heartbeat. You may have low blood pressure if you become dizzy but feel better when you sit down. Have someone take your blood pressure or call your provider. If you don't feel better with sitting down, call 911 as noted below. Call 911 Call 911 if any of these occur: ? New or unusual chest pain or a return of the heart symptoms you had before surgery ? New or unusual shortness of breath ? Feeling dizzy or lightheaded, or passing out ? Pulse (heartbeat) is fast (more than 120 beats per minute) or slow (fewer than 50 beats per minute). Or your pulse is irregular, has extra beats, or skips beats. ? Heavy bleeding from the incision site, or bleeding that doesn't stop Last Reviewed Date: 2024 00:00:00 ?? [id number] The [employer]. All rights reserved. This information is not intended as a substitute for professional medical care. Always follow your healthcare professional's instructions. * Jeff Monaco - Shiela Branch RN - 12/18/2024 8:00 AM EDT Images from the original note were not included. 206 Heart Healthy Diet Understanding Fats, MyPlate, and the DASH Plan The facts on cholesterol Cholesterol is a fat like substance that supports the production of certain hormones. It is found in all foods of animal origin. We not only eat cholesterol, but we also produce it in our liver. Although cholesterol is important, a high blood cholesterol level can be harmful. An elevated cholesterol level can lead to atherosclerosis, which is when arteries become thickened or hard due to plaque buildup in an artery's inner lining. Atherosclerosis can lead to heart disease, strokes, and peripheral vascular disease. Certain risk factors such as an elevated cholesterol level, hypertension, cigarette smoking, lack of exercise, obesity, and a family history of heart disease increase one?s risk of developing atherosclerosis and heart disease. However, most of these risk factors can be controlled. The following dietary guidelines provide information on how to eat properly in order to reduce your risk of developing atherosclerosis. The facts on fats Polyunsaturated: These are considered beneficial fats in limited quantity. Main sources are safflower, sunflower, corn, soybean, and cottonseed oil. Usually liquid at room temperature, but start to turn solid when chilled. They can help to lower the level of blood cholesterol. Monounsaturated Fats: These are considered beneficial fat. Main sources are canola, olive, and peanut oils. They have been demonstrated to reduce the level of blood cholesterol. Saturated Fats: These fats raise blood cholesterol levels. These fats usually fats come from animalfoods, but some vegetable oils such as coconut, palm kernel, and palm oils are saturated. Hydrogenated Fats (also called trans fats): These are considered saturated fats. They are chemically changed from liquid fat to solid fat and can be categorized as partially hydrogenated or hydrogenated. Hydrogenated fats resemble saturated fats and should be avoided. Examples include margarines, shortenings, and regular peanut butter (when liquid oil is not the first ingredient). Guidelines: ? Reduce saturated fat and trans fat intake. ? Choose polyunsaturated and monounsaturated fats in place of saturated fats or trans fats, as these are considered healthy fat. ? Limit sodium intake. ? Increase intake of fiber and complex carbohydrates such as vegetables, fruits, dried beans and peas, and whole grain cereals and breads. Milk and milk products Choose: Milk and milk products with 1% or less milk fat: ? Skim (liquid, powdered or evaporated) ? ?? and 1% milk ? Skim buttermilk ? Low fat buttermilk ? Non-fat yogurt and frozen dessert ? Frozen low-fat yogurt ? Ice milk Low fat cheese containing 3 gms of fat or less per ounce: ? Javed?s cheese ? Palumbo?s cheese ? Part skim mozzarella cheese ? Ricotta cheese ? Low-fat cottage cheese ? Dry curd cottage cheese Always try to buy low-fat dairy products when you can, and always read the labels! Avoid: Milk and milk beverages as listed: ? 2% milk ? Whole milk ? Chocolate milk and chocolate drinks ? Evaporated or condensed whole milk ? Malted milk ? Milkshakes ? Eggnog Milk products as listed: ? Regular Cream ? Sour cream ? Half and half cream ? Whipped topping containing coconut or palm oil Cheeses containing more than 5 grams of fat per ounce: ? Cream cheese ? Creamed cottage cheese ? Natural and processed cheeses such as Filipino, blue, mozzarella, and Maltese Meat and protein substitutes Special instructions: ? Trim excess fat prior to cooking. ? Remove skin of chicken prior to cooking. ? Choose poultry and fish more often than red meat. Red meat includes beef, pork, heath, and veal. When you do eat red meat, choose leaner cuts when possible, such as lean ground beef (93/7, 90/10, 85/15), etc. ? Skim the fat from meat juices before adding to stews, soups, and gravy. ? Chilling the meat juices will cause the fat to harden for easier removal. ? To extend meat, use as part of a casserole or mixed with vegetables, rice, or pasta. Choose: ? Fish ? Shellfish ? Water - packed canned tuna or salmon ? Poultry without skin ? Beef and pork, lean cuts ? Veal ? Lentils ? Legumes ? Dried beans and peas ? Egg substitute ? Dried or chipped beef ? Luncheon meats with less than 3 grams fat per ounce ? Eggs ? Heath lean cuts ? Natural peanut butter ? Soy and texturized protein Avoid: ? Regular ground beef ? Marbled prime grade and fatty meats ? Spare ribs ? Otero ? Hot dogs ? Sausages ? High fat luncheon meat ? Cold cuts ? Fatty corned beef ? Goose ? Duck ? Poultry skin ? Fish canned in oil or fried ? Dried beans prepared with salt pork ? Caviar ? Organ meats (heart, liver, brains, kidney) ? Sweet breads ? Commercially fried foods ? Canned or frozen meats with gravy or sauces ? Frozen packaged convenience entrees containing more than 10 grams fat per serving ? Other frozen or packaged foods containing more than 3 grams fat per serving Breads, cereals, and grains Choose: ? Oat bran ? Oat meal ? Whole wheat ? [place] ? Pumpernickel ? White ? Raisin ? Crackers prepared without butter, lard, coconut, or palm oil ? Dry cereals that contain allowed fats ? Rice and pasta prepared with allowed fats ? Egg noodles (limit to ?? cup per day) ? Solomon Islander ? Albanian ? Cymraes muffins ? Pancakes, waffles, biscuits, and cornbread made with allowed ingredients ? Flat bread ? Eric crackers ? Matzoh crackers ? Whole grain or enriched cereals prepared with allowed oils ? Wheat germ Avoid: ? Egg or cheese bread ? Butter rolls ? Commercially prepared products: biscuits, muffins, sweet rolls, cornbread, pancakes and waffles, jordanian toast, croissants ? Noodles ? Cheese crackers ? Flavored crackers prepared with saturated fats ? Any cereal prepared with saturated fat ? Setswana noodles ? Rice and pasta prepared with eggs, cream, or high fat cheese Fruits Choose: ? Any fresh, frozen, canned, or dried fruit or juice ? Avocado Vegetables Choose: ? Any fresh, frozen, or canned vegetables ? Potatoes prepared with allowed fat ? Olives (limit to 10 small or 5 large per day) Avoid: ? Buttered, creamed, or fried vegetables ? [id number], commercially made ? Vegetables prepared in a cheese sauce Soups Choose: ? Bouillon and clear broth ? Fat free vegetable soup ? Dehydrated soups made with allowed fats Avoid: ? Creamed soups ? Soups made with whole milk, cream, butter, or meat fat Drinks Choose: ? Coffee ? Tea ? Carbonated beverages (If drinking soda, choose the diet version) ? Fruit drinks ? Fruit and vegetable juice ? Hot chocolate made from cocoa, skim milk, and allowed oils Avoid: ? Beverages with cream ? Commercial hot chocolate and chocolate drinks ? Eggnog ? Milkshakes ? Alcohol (except with physician?s approval) Fats Special Instructions: Including healthy fats as part of our diets is essential to giving our bodiesenergy, supporting cell function, protecting our organs, and keeping our bodies warm. They also help our bodies to absorb some nutrients and produce important hormones. There are 9 calories in every gram of fat we eat, regardless of what type of fat it is. Some foods are higher in fat than others, such as nuts, mayonnaise, salad dressings, sandwich spreads, cooking oils, etc. When eating these foods that are higher in fat, it is important to be mindful of their serving sizes. For example, a serving of nuts is considered to be a small handful or 1.5 ounces of whole nuts, or 2 tbsp of nut butter. Some examples of these foods higher in fat and their serving sizes are listed below: ? Nuts: The [place] [employer] recommends including 5 servings of nuts per week as part of a healthy diet. Remember to count the hidden fats in bakery products and snack foods, fat used in cooking, or on vegetables and bread. o Almonds: 20-23 almonds, or ?? cup o Hazelnuts: ~21 hazelnuts, or ?? cup o Peanuts: ~28 shelled peanuts (i.e., not in the shell), or ?? cup o Pecans: ~15-19 pecan halves, or ?? cup o Pistachios:49 kernels of pistachio nut, or ?? cup ? Walnuts: 14 walnut halves, or ?? cup ? Nut butters, such as peanut butter: 2 tablespoons ? Mayonnaise and sandwich spreads: 1 tablespoon ? Reduced-calorie salad dressings: 2 tablespoons ? Cooking oils, such as olive oil, butter, canola oil, avocado oil, etc.: 1 tablespoon o The [employer] recommends limiting oils to 3 tablespoons, or 9 teaspoons, per day. Choose: ? Liquid vegetable oils (canola, corn, cottonseed, peanut, olive, safflower, sunflower, soybean) ? Margarines with no trans fat ? Non-stick cooking sprays as desired ? Butter imitations as desired ? Commercial salad dressings prepared without cream or cheese ? Mayonnaise Avoid: ? Palm oil ? Coconut oil ? Butter ? Lard ? Salt pork ? Otero ? Meat drippings ? Gravies and cream sauces unless made with allowed fat and/or skim milk ? Sweet and sour milk ? Whipped toppings ? Artificial whipping cream ? Half and half cream ? Hydrogenated shortening ? Salad dressings prepared from unknown or undesirable oils ? Blue cheese salad dressing ? Margarines with first ingredient listed as a hydrogenated oil ? Filberts ? Cashews ? Macadamia nuts Sweets, desserts, and snacks Choose: ? Fresh fruit ? Dried fruits ? Fruit ices ? Sherbet ? Gelatin ? Fruit whips ? Meringues ? Animal crackers ? Fig bars ? Adonis food cake ? Cakes, pies, cookies, and frostings prepared with allowed ingredients ? Sorbet ? Ice milk ? Heth ? Gum drops ? Jelly beans ? Hard candy ? Marshmallows ? Plain sugar ? Mints ? Jam and jelly ? Honey and syrups ? Pretzels ? Popcorn prepared with allowed oils ? Low fat frozen yogurt ? Popsicles Avoid: ? Coconut ? Chocolate ? Commercial cakes, pies, cookies, and ice cream ? Desserts prepared with whole milk, saturated fats, cheese, and/or egg yolks ? [place] chips ? Potato chips and other snack chip ? Commercial and microwave popcorn prepared with undesirable oils ? Coffee leobardo (unless made with polyunsaturated fats) Understanding USDA MyPlate The USDA (US Department of Agriculture) has guidelines to help you make healthy food choices. Theseare called MyPlate. MyPlate shows the food groups that make up healthy meals using the image of a place setting. Before you eat, think about the healthiest choices for what to put onto your plate or into your cup or bowl. To learn more about building a healthy plate, visit www.choosemyplate.gov. The Food Groups ? Fruits: Any fruit or 100% fruit juice counts as part of the Fruit Group. Fruits may be fresh, canned, frozen, or dried, and may be whole, cut-up, or pureed. Make half your plate fruits and vegetables. ? Vegetables: Any vegetable or 100% vegetable juice counts as a member of the Vegetable Group. Vegetables may be fresh, frozen, canned, or dried. They can be served raw or cooked and may be whole, cut-up, or mashed. Make half your plate fruits and vegetables. ? Grains: All foods made from grains are part of the Grains Group. These include wheat, rice, oats,cornmeal, and barley such as bread, pasta, oatmeal, cereal, tortillas, and grits. Grains should be no more than a quarter of your plate. At least half of your grains should be whole grains. ? Protein: This group includes meat, poultry, seafood, beans and peas, eggs, processed soy products(like tofu), nuts (including nut butters), and seeds. Make protein choices no more than a quarter of your plate. Meat and poultry choices should be lean or low fat. ? Dairy: All fluid milk products and foods made from milk that contain calcium, like yogurt and cheese are part of the Dairy Group. (Foods that have little calcium, such as cream, butter, and cream cheese, are not part of the group.) Most dairy choices should be low-fat or fat-free. ? Oils: These are fats that are liquid at room temperature. They include canola, corn, olive, soybean, and sunflower oil. Foods that are mainly oil include mayonnaise, certain salad dressings, and soft margarines. You should have only 5 to 7 teaspoons of oils a day. You probably already get this much from the food you eat. Use SwipeClock to Help Build Your Meals The ZinkoTek[employer] can help you plan and track your meals and activity. You can look up individual foods to see or compare their nutritional value. You can get guidelines for what and how much you should eat. You can compare your food choices. And you can assess personal physical activities and see ways you can improve. Go to www.GiPStech.gov/Trapminecker/. Eating Heart-Healthy Food: Using the DASH Plan Eating for your heart doesn?t have to be hard or boring. You just need to know how to make healthier choices. The DASH eating plan has been developed to help you do just that. DASH stands for DietaryApproaches to Stop Hypertension. It is a plan that has been proven to be healthier for your heart and to lower your risk for high blood pressure. It can also help lower your risk for cancer, heart disease, osteoporosis, and diabetes. Choosing from Each Food Group Choose foods from each of the food groups below each day. Try to get the recommended number of servings for each food group. The serving numbers are based on a diet of 2,000 calories a day. Talk to your doctor if you?re unsure about your calorie needs. Along with getting the correct servings, the DASH plan also recommends a sodium intake less than 2,300 mg per day. Grains Servings: 6-8 a day A serving is: ? 1 slice bread ? 1 ounce dry cereal ? Half a cup cooked rice, pasta or cereal Best choices: Whole grains and any grains high in fiber. Vegetables Servings: 4-5 a day A serving is: ? 1 cup raw leafy vegetable ? Half a cup cut-up raw or cooked vegetable ? Half a cup vegetable juice Best choices: Fresh or frozen vegetables prepared without added salt or fat. Fruits Servings: 4-5 a day A serving is: ? 1 medium fruit ? One-quarter cup dried fruit ? Half a cup fresh, frozen, or canned fruit ? Half a cup of 100% fruit juices Best choices: A variety of fresh fruits of different colors. Whole fruits are a better choice than fruit juices. Low-fat or Fat-free Dairy Servings: 2-3 a day A serving is: ? 1 cup milk ? 1 cup yogurt ? One and a half ounces cheese Best choices: Skim or 1% milk, low-fat or fat-free yogurt or buttermilk, and low-fat cheeses. Lean Meats, Poultry, Fish Servings: 6 or fewer a day A serving is: ? 1 ounce cooked meats, poultry, or fish ? 1 egg Best choices: Lean poultry and fish. Trim away visible fat. Broil, grill, roast, or boil instead offrying. Remove skin from poultry before eating. Limit how much red meat you eat. Nuts, Seeds, Beans Servings: 4-5 a week A serving is: ? One-third cup nuts (one and a half ounces) ? 2 tablespoons nut butter or seeds ? Half a cup cooked dry beans or legumes Best choices: ?Dry roasted? nuts with no salt added, lentils, kidney beans, garbanzo beans, and whole lang beans. Fats and Oils Servings: 2-3 a day A serving is: ? 1 teaspoon vegetable oil ? 1 teaspoon soft margarine ? 1 tablespoon mayonnaise ? 2 tablespoons salad dressing Best choices: Nut and vegetable oils (nontropical vegetable oils), such as olive and canola oil. Sweets Servings: 5 a week or fewer A serving is: ? 1 tablespoon sugar, maple syrup, or honey ? 1 tablespoon jam or jelly ? 1 half-ounce jelly beans (about 15) ? 1 cup lemonade Best choices: Dried fruit can be a satisfying sweet. Choose low-fat sweets. And watch your serving sizes! For more on the DASH eating plan, visit: www.nhlbi.nih.gov/health/health-topics/topics/dash * [facility] - Shiela Branch RN - 12/18/2024 8:00 AM EDT Images from the original note were not included. [address] Eating Heart-Healthy Foods Eating has a big impact on your heart health. In fact, eating healthier can improve several of yourheart risks at once. For instance, it helps you manage weight, cholesterol, and blood pressure. Here are ideas to help you make heart- healthy changes without giving up all the foods and flavors you love. Getting started ? Talk with your healthcare provider about eating plans, such as the DASH or Mediterranean diet. You may also be referred to a dietitian. Ask a partner, family member, or friend to join you for mutual support. ? Change a few things at a time. Give yourself time to get used to a few eating changes before adding more. ? Work to create a tasty, healthy eating plan that you can stick to for the rest of your life. Goals for healthy eating Below are some tips to improve your eating habits: ? Limit saturated fats and trans fats. Saturated fats raise your levels of cholesterol, so keep these fats to a minimum. They are found in foods such as fatty meats, whole milk, cheese, and palm and coconut oils. Avoid trans fats because they lower good cholesterol as well as raise bad cholesterol.Trans fats are most often found in processed foods, such as pastries, cookies, pies, muffins, friedfoods, stick margarines, and shortening. ? Reduce how much sodium (salt) you have. Eating too much salt may increase your blood pressure. Limit your sodium intake to 2,300 milligrams (mg) per day (the amount in 1 teaspoon of salt), or less if your healthcare provider recommends it. Dining out less often and eating fewer processed foods are two great ways to decrease the amount of salt you consume. At home, flavor your foods with other spices and herbs instead of salt. ? Managing calories. A calorie is a unit of energy. Your body velasquez calories for fuel, but if you eat more calories than your body velasquez, the extras are stored as fat. Your healthcare provider or dietitian can help you create a diet plan to manage your calories. This will likely include eating healthier foods and getting regular exercise. To help you track your progress, keep a food diary to record what you eat and how often you exercise. Choose the right foods Aim to make these foods bety of your diet. If you have diabetes, you may have different recommendations than what is listed here: ? Fruits and vegetables provide plenty of nutrients without a lot of calories. At meals, fill half your plate with these foods. Choose between fresh, frozen, canned, or dried fruits and vegetables without added sauces, salt, or sugars. Split the other half of your plate between whole grains and lean protein. ? Whole grains are high in fiber and rich in vitamins and nutrients. Good choices include whole-wheat bread, pasta, oats, and brown rice. Make at least half of your grains whole grains. ? Lean proteins give you nutrition with less fat. Good choices include fish, skinless chicken and turkey, and beans. Draining the fat from cooked ground meat is another way to reduce the amount of fat you eat. ? Low-fat and nonfat dairy provide nutrients without a lot of fat. Try low-fat or nonfat milk, cheese, or yogurt. ? Healthy fats can be good for you in small amounts. These are unsaturated fats, such as olive oil,avocado, nuts, and fish. Try to have at least 2 servings per week of fatty fish, such as salmon, sardines, mackerel, rainbow trout, and albacore tuna. These contain omega-3 fatty acids, which are good for your heart. Flaxseed and walnuts are other sources of heart-healthy fats. More on heart-healthy eating Read food labels Healthy eating starts at the grocery store. Be sure to pay attention to food labels on packaged foods. Look for products that are high in fiber and protein and low in saturated fat, added sugars, andsodium. Avoid products that contain trans fat. And pay close attention to serving size. For instance, if you plan to eat 2 servings, double all the numbers on the label. Prepare food right A beasley part of healthy cooking is cutting down on added fat, sugar, and salt. Look on the Internet for lower-fat, lower-sodium recipes without a lot of added sugars. Also try these tips: ? Remove fat from meat and skin from poultry before cooking. ? Skim fat from the surface of soups and sauces. ? Broil, roast, boil, bake, steam, grill, or microwave food without added fats. ? Choose ingredients that spice up your food without adding calories, fat, sugar, or sodium. Try these items: horseradish, hot sauce, lemon zest and juice, garlic, onion, mustard, nonfat salad dressings, and vinegar. Small amounts of olive oil-based vinaigrettes are OK, too. For salt-free herbs andspices, try basil, cilantro, cinnamon, cumin, paprika, pepper, and cindy. Last Reviewed Date: 2022 00:00:00 ?? [id number] The [employer]. All rights reserved. This information is not intended as a substitute for professional medical care. Always follow your healthcare professional's instructions. * Jeff Monaco - Shiela Branch RN - 12/18/2024 8:00 AM EDT Images from the original note were not included. 1548 After Sternotomy: General Safety You need to protect your chest until it heals. Follow these rules 6-8 weeks after surgery, unless your doctor tells you otherwise. Basic safety steps: 1. When you move, keep your arms as close to your body as you can. 2. Do not push or pull with your arms. 3. Do not lift over 5-10 pounds. For example, a gallon of milk weighs about 10 pounds. 4. You can move your arms through your full range of motion. How to get out of bed Step 1: Lay flat with your arms crossed. Step 2: Roll to either side. Step 3: Kick your legs off the bed. Dig your elbow into the bed and use your stomach to start to sit. Step 4: Keep your arms across your chest as you move to sit. Step 5: Rest your arms on the bed next to your hips. OR rest your arms on your thighs. Step 6: Stand up. Do not use your hands! Do not do these moves when you get out of bed. Do not pull on a bed rail to sit up or lay down. Do not push up on the bed to stand with arms away from body. Do not pull on the bed rails to scoot. Do not do these when someone helps you get out of bed. Do not pull up with your arms to get out of bed. Do not pull up with the arms to get up or stand. How to open a door Correct Your arm should stay close to your body. Incorrect Do not move your arm away from your body to pull. How to walk with a cane Correct Keep your elbow close to your body. Incorrect Do not move your elbow away from your body. How to carry a bag Correct Keep your elbow close to your body. Incorrect Do not move your elbow away from your body. Correct Keep your elbow close to your body. Incorrect Do not move your elbow away from your body. How to use a wheelchair Correct Keep your elbows close to your body to propel the wheelchair. Incorrect Do not propel the wheelchair with your elbows away from your body. How to get in and out of a chair Correct Keep your elbows close to your body. Place your hands next to your thighs to push to stand. Incorrect Do not push up with your elbows away from your body. How to move from a chair to a walker Correct Option 1: Keep walker close. Place your hands on the seat next to your thighs. Keep your arms closeto your body as you push up. Option 2: Place your hands on your thighs. Keep your arms close to your body as you push up. Incorrect Do not pull up with one hand on the walker and push up with the other hand on the chair. Do not pull up or push up with your arms away from your body. How to get up from the toilet Correct Step 1: Place your hands on the seat close to your thighs. Step 2: Keep your arms close to your body as you push up. Step 3: Keep arms close to your body as you stand. Correct - with bedside commode Step 1: Place your hands on the seat close to your thighs. Step 2: Keep your arms close to your body as you push up. Step 3: Keep arms close to your body as you stand. Incorrect Do not push up with your arms away from your body. Do not push or pull with your arms away from your body. * Jeff OnIR - Shiela Branch RN - 12/18/2024 8:00 AM EDT Images from the original note were not included. [address] After Bypass Surgery: Reaching, Bending, and Lifting Moving carefully During your first few weeks at home, you need to move carefully. This is because your breastbone (sternum) was cut during surgery. The bone takes about 6 to 8 weeks to grow back together. It won't come apart if you move the wrong way. But you may feel pain around the cuts (incisions) or hear a clicking sound in your chest. These are warning signs to move more carefully. Follow the tips below to help prevent straining your breastbone. Reaching Until your breastbone heals, twisting your upper body can be painful. When you reach for something,follow these steps: 1. Turn with your entire body so that you face the object. 2. Step close to it. 3. Lean forward from the waist to pick it up. If you need anything that is above your shoulders, ask someone to get it for you. Bending and lifting For the first few weeks, keep the things you use most, such as clothing and dishes, at waist level.If you must bend down to lift something light, follow these steps: ? Stand close to the object. ? Put your feet shoulder-width apart, with one foot slightly in front of the other. ? Hold on to something sturdy with one hand. ? Bend at the knees. Keep your back and neck straight and your shoulders and hips in line. ? flight test supervisor the object and hold it close to your body. ? Slowly push up with your legs. Don't do heavy lifting, pushing, or pulling. If you need anything that weighs more than 5 to 10 pounds or that is on the floor, ask someone to get it for you. Stop any activity if you have shortness of breath, chest pain, irregular heartbeat, or dizziness. Call your health care provider right away, unless they gave you other directions. Last Reviewed Date: 2024 00:00:00 ?? [id number] The [employer]. All rights reserved. This information is not intended as a substitute for professional medical care. Always follow your healthcare professional's instructions. * Jeff Monaco - Shiela Branch, RN - 12/18/2024 8:00 AM EDT Images from the original note were not included. [id number] After Bypass Surgery: Getting Up and Out of Bed After coronary artery bypass surgery, it's important to protect your incision and healing breastbone. Move carefully as you get up from sitting or as you get out of bed. Getting up from sitting When you get up from a chair or couch, use your leg muscles, not your arms, to push your body up. To stand up: 1. Scoot to the front of the chair. 2. Place one foot slightly in front of the other. 3. Put your hands on your thighs. 4. Bend forward from the hips and push your body up with your legs. To sit down, use your leg muscles to lower yourself onto the front of the chair. Then use your leg muscles, not your arms, to scoot back. Getting out of bed When you get in and out of bed, keep your shoulders and hips in line. Also when you're getting out of bed, roll over to your side rather than trying to sit straight up. To get out of bed: ? Lie on your back and slowly scoot to the edge of the bed. ? Bend your knees slightly and roll slowly onto your side. ? Keep your upper arms close to the sides of your body. This can help prevent excess stress on yourbreastbone (sternum). Place your hands in front of your body and lean slightly forward. ? Let your legs move slowly off the edge of the bed to the floor. ? At the same time, as your legs gently swing to the floor, let the motion help raise your upper body to a sitting position. ? Sit for a moment. This will help keep you from getting dizzy. ? Put your hands on your thighs. Bend forward from the hips and push your body up with your legs. ? Don't use your arms to push up. This is to prevent putting weight on your arms. To get into bed, do the reverse. Before you leave the hospital, your health care provider will show you how to get in and out of bed. And they will show you how to stand up from a sitting position. They will teach you the correct method for body alignment. And they will teach you movements to stay away from, such as pulling to theside and twisting, or pushing and pulling with your arms. When you go home, try to have someone there who knows how to do this, such as a friend, a family member, or a caregiver. This is for your support and safety. Ask your health care provider questions if you are unsure about what to do. Last Reviewed Date: 2024 00:00:00 ?? The [employer]. All rights reserved. This information is not intended as a substitute for professional medical care. Always follow your healthcare professional's instructions. * Discharge Instr - Other Orders - Shiela Branch RN - 12/18/2024 8:00 AM EDT Please arrive 30 minutes early for your appointment with Dr. Al Prior to your appointment, go to the radiology department on the 1st floor of the [facility] near [facility] for a chest x-ray. Then go to the lab on the 2nd floor for blood work. Then come to our office on the 3rd floor. Please bring your BOTTLES of medications and parking ticket in for validation. * Discharge Instr - Diet - Shiela Branch RN - 12/18/2024 8:00 AM EDT Your food may taste funny, or you may not have much of an appetite. This is normal after surgery and should go away. Follow a heart healthy diet. (Information included) * Discharge Instr - Activity - Shiela Branhc RN - 12/18/2024 7:59 AM EDT Take a shower every day. Use a clean washcloth on your incisions every day. Wash your incisions before you wash anywhere else on your body. Do NOT use Neosporin, Peroxide, Betadine, or other ointments on your incisions. Do NOT lift, push, or dross puller 5 pounds for six weeks[address] until your physician gives you approval. Move around as you are able. No activity that tires you out. You can sleep on your side if it is comfortable. You can ride in the front seat of the car. You canraise both arms at the same time. * Discharge Instr - AVS First Page - Selin Bartlett - 12/18/2024 7:59 AM EDT Temperature 101.5 or greater. Incisions coming open or draining pus. Pain not relieved by medications. Increased shortness of breath. Increased swelling. For questions or concerns, please contact??? Shiela Branch CT Surgery Nurse Navigator at [phone] Tuesday through Tuesday 7am- 3:30pm or clinic [phone] [facility] [phone] after 3:30 pm, weekends and holidays - ask for the CT surgeon education diagnostician. * Progress Notes - Boris Al MD - 12/18/2024 6:42 AM EDT Beverley Antoine Patient was seen and examined with resident physicians and CCM. Morning chest x- ray reviewed. Labs in last 18 hours CBC WBC 13.44 (H) Hb 10.6 (L); 10.6 (L) Plt 134 (L) Hct 30.9 (L); 30.9 (L) ANC ?? INR 1.4 (H), PTT 28, Anti-Xa ?? BMP Na 142 Cl 107 BUN 18 Glu 182 (H) K 4.1; 4.1 Co2 21 (L) Cr 0.87 Ca 7.7 (L) iCa 3.9 (L) Mg 3.3 (H), Phos 6.0 (H) Lactate 2.9 (H) LFT AST ?? AlkPhos ?? T Prot ?? ALK ?? Bili ?? Alb ?? D.Bili ?? Current Scheduled Medications[1] Current Continuous Medications[2] PAP: (15-33)/(4-22) 15/4 CO: [4.1 L/min-5.5 L/min] 5.5 L/min CI: [2.4 L/min/m2-3.1 L/min/m2] 3.1 L/min/m2 Visit Vitals BP 103/62 (BP Location: Left arm, Patient Position: Lying) Pulse 95 Temp 36.8 ??C (98.2 ??F) (Core) Wt 73.5 kg (162 lb 0.6 oz) SpO2 95% BMI 28.70 kg/m?? Intake/Output Summary (Last 24 hours) at 12/18/2024 0642 Last data filed at 12/18/2024 0600 Gross per 24 hour Intake 3840.03 ml Output 5052 ml Net -1211.97 ml Physical Exam Vitals reviewed. Constitutional: Appearance: She is not ill-appearing. HENT: Head: Normocephalic and atraumatic. Right Ear: External ear normal. Left Ear: External ear normal. Nose: Nose normal. Mouth/Throat: Mouth: Mucous membranes are moist. Pharynx: Oropharynx is clear. Eyes: Extraocular Movements: Extraocular movements intact. Pupils: Pupils are equal, round, and reactive to light. Cardiovascular: Rate and Rhythm: Normal rate and regular rhythm. Pulmonary: Effort: Pulmonary effort is normal. No respiratory distress. Abdominal: General: There is no distension. Palpations: Abdomen is soft. Musculoskeletal: Right lower leg: No edema. Left lower leg: No edema. Skin: General: Skin is warm and dry. Neurological: General: No focal deficit present. Mental Status: She is alert and oriented to person, place, and time. Psychiatric: Mood and Affect: Mood normal. Behavior: Behavior normal. Sternal incision: bandages clean Leg incision: intact Impression & Plan Miss Antoine is a 59yo female who underwent 3-vessel coronary artery bypass grafting with Dr. Al on 12/17/2024. -ASA, statin, beta william -40 IV lasix -Keep chest tubes and pacing wires -possible chest tube removal this afternoon after ambulation -Mobilize, PT/OT -Remove Cherie -Monitor abdomen; if gets nauseous may need NGT -ICU [1] acetaminophen, 1,000 mg, Oral, q8h aspirin, 81 mg, Oral, Daily atorvastatin, 80 mg, Oral, Nightly ceFAZolin, 2 g, Intravenous, q8h docusate sodium, 100 mg, Oral, BID enoxaparin, 40 mg, Subcutaneous, Daily ipratropium-albuterol, 3 mL, Nebulization, q4h lidocaine, 1 patch, Apply externally, q24h methocarbamol, 500 mg, Oral, 4x daily metoprolol tartrate, 12.5 mg, Oral, BID mupirocin, 1 Application, Each Nostril, BID polyethylene glycol, 17 g, Oral, Daily senna, 17.2 mg, Oral, Nightly simethicone, 80 mg, Oral, 4x daily sodium chloride, 10 mL, Intravenous, q12h [2] clevidipine, 1-32 mg/hr, Last Rate: 3 mg/hr (12/17/24 1148) insulin regular infusion - for hyperglycemia - standard protocol, 0.5-30 Units/hr, Last Rate: Stopped (12/17/24 1706) nitroglycerin, 0-2 mcg/kg/min, Last Rate: Stopped (12/18/24 0015) * Assessment & Plan Note - Shazia Newman APRN - 12/17/2024 11:30 PM EDT Associated Problem(s): CAD (coronary artery disease) - See s/p CABG x3 * Assessment & Plan Note - Shazia Newman APRN - 12/17/2024 11:30 PM EDT Associated Problem(s): HLD (hyperlipidemia) -restart statin as appropriate * Assessment & Plan Note - Shazia Newman APRN - 12/17/2024 11:30 PM EDT Associated Problem(s): Bipolar affective disorder (CMS/HCC) -Previously on meds - since been well controlled * Assessment & Plan Note - Shazia Newman APRN - 12/17/2024 11:30 PM EDT Associated Problem(s): Diabetes ([facility]) -Pre-diabetes - last A1C 5.8 - resume meds when appropriate - continue to monitor BG * Assessment & Plan Note - Shazia Newman APRN - 12/17/2024 11:30 PM EDT Associated Problem(s): Seizures ([facility]) -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 - well controlled with Zonegran - restart when appropriate * Assessment & Plan Note - Shazia Newman APRN - 12/17/2024 11:30 PM EDT Associated Problem(s): Lung cancer ([facility]) - 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 Stopped smoking 3 days prior to surgery * Assessment & Plan Note - Shazia Newman APRN - 12/17/2024 11:30 PM EDT Associated Problem(s): Chronic obstructive pulmonary disease with (acute) exacerbation ([facility]) -not on home O2 - Resume home albuterol and spiriva when appropriate * Assessment & Plan Note - Shazia Newman APRN - 12/17/2024 11:30 PM EDT Associated Problem(s): 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 -Monitor per protocol. * Assessment & Plan Note - Shazia Newman APRN - 12/17/2024 11:30 PM EDT Associated Problem(s): S/P CABG x 3 - CABGx3 (PAREDES-LAD, RSV-OM, RSV-PDA) & LLE EVH with Dr. Al - will continue inotropic support as needed and wean appropriately throughout postoperative course - volume resuscitation in immediate postoperative period as needed - resusme ASA, statin, BB as appropriate * Assessment & Plan Note - Shazia Newman APRN - 12/17/2024 11:30 PM EDT Associated Problem(s): Acute blood loss anemia -received 2u pRBCs intra-op - continue to monitor - transfuse as indicated * Assessment & Plan Note - Shazia Newman APRN - 12/17/2024 11:30 PM EDT Associated Problem(s): Thrombocytopenia (CMS/HCC) (Resolved 12/21/2024) -Continue to trend * Assessment & Plan Note - Shazia Newman APRN - 12/17/2024 11:30 PM EDT Associated Problem(s): Electrolyte abnormality (Resolved 12/21/2024) - replace per ICU protocol * Assessment & Plan Note - Shazia Newman APRN - 12/17/2024 11:30 PM EDT Associated Problem(s): Anxiety -Monitor per protocol. * Assessment & Plan Note - Shazia Newman APRN - 12/17/2024 11:30 PM EDT Associated Problem(s): Cancer (CMS/HCC) -Monitor per protocol. * Assessment & Plan Note - Shazia Newman APRN - 12/17/2024 11:30 PM EDT Associated Problem(s): Cardiac volume overload (Resolved 12/21/2024) -Diuresis * Progress Notes - Shazia Newman APRN - 12/17/2024 11:16 PM EDTAssociated Order(s): Critical Care Post-Procedure Diagnose(s): Acute blood loss anemia; S/P CABG x 3; Cardiac volume overload Critical Care Performed by: Shazia Newman APRN Authorized by: Shazia Newman APRN Critical care provider statement: Critical care time (minutes): 30 Critical care time was exclusive of: Separately billable procedures and treating other patients Critical care was time spent personally by me on the following activities: Development of treatmentplan with patient or surrogate, ordering and performing treatments and interventions, ordering and review of laboratory studies, ordering and review of radiographic studies, obtaining history from patient or surrogate, examination of patient, evaluation of patient's response to treatment, discussions with consultants, discussions with primary provider and review of old charts I assumed subsequent critical care for this patient from a provider in my division, on the same day: yes Comments: The patient is critically ill with: post op CABG, chest tubes, pacing wires, cardiac volume overload. They require complex decision making. The patient was seen on rounds with critical care physician, Dr. Mallory and they are in agreement with the plan of care. Pharmacy, respiratory and nursing services were present on rounds. 12/17/24 Beverley Antoine HPI Beverley Antoine is a 59 y.o. female who presents with CAD (coronary artery disease). If applicable, patient is s/p Procedure(s) and Anesthesia Type: * CABG, 2 OR MORE VESSELS - General. Patient is * Day of Surgery * with Cardiothoracic Surgery. Past 24 hours: PM: Lasix 40, metolazone 5 mg--> CVP 12-15. diet clears, Cleviprex gtt, Metop scheduled for AM. Eval for diuresis in AM AM: Edited by: Shazia Newman APRN at 12/17/2024 1851 Lines/Drains/Tubes: Patient Lines/Drains/Airways Status Active Active LDAs Name Placement date Placement time Site Days CVC Single Lumen 12/17/24 Right Internal jugular 12/17/24 0816 Internal jugular less than 1 Peripheral IV 12/17/24 Left Antecubital 12/17/24 0722 Antecubital less than 1 Peripheral IV 12/17/24 Anterior;Right;Upper Arm 12/17/24 1300 Arm less than 1 Urethral Catheter Temperature probe 16 Fr. 12/17/24 0803 -- less than 1 Y Chest Tube 1 and 2 Mediastinal 36 Fr. Pleural 28 Fr. 12/17/24 1425 -- less than 1 Arterial Line 12/17/24 Right Radial 12/17/24 0752 Radial less than 1 Pulmonary Artery Catheter 12/17/24 Internal jugular Right 12/17/24 0816 Internal jugular less than 1 GCS: [place] Coma Scale Score: 15 Review of Systems 14 point ROS reviewed and otherwise negative or unobtainable except as noted above or in HPI. Vital signs: Vitals: 12/17/24 2300 BP: Pulse: 95 Resp: 8 Temp: 36.9 ??C (98.4 ??F) SpO2: 97% Intake/Output Summary (Last 24 hours) at 12/17/2024 2327 Last data filed at 12/17/2024 2300 Gross per 24 hour Intake 3840.03 ml Output 4442 ml Net -601.97 ml Physical Exam Vitals and nursing note reviewed. Constitutional: General: She is in acute distress. Appearance: Normal appearance. She is ill-appearing. HENT: Head: Normocephalic and atraumatic. Nose: Nose normal. Mouth/Throat: Mouth: Mucous membranes are moist. Pharynx: Oropharynx is clear. Eyes: Conjunctiva/sclera: Conjunctivae normal. Pupils: Pupils are equal, round, and reactive to light. Cardiovascular: Rate and Rhythm: Regular rhythm. Tachycardia present. Heart sounds: Normal heart sounds. Pulmonary: Effort: Pulmonary effort is normal. Breath sounds: Wheezing present. Comments: OETT present Abdominal: General: Abdomen is flat. There is distension. Palpations: Abdomen is soft. Comments: Hypoactive BS X4 Musculoskeletal: General: Swelling present. Right lower leg: Edema present. Left lower leg: Edema present. Comments: Left leg AMELIA MCT PCT Wires Prevena Skin: General: Skin is warm and dry. Capillary Refill: Capillary refill takes less than 2 seconds. Coloration: Skin is pale. Skin is not jaundiced. Neurological: General: No focal deficit present. Mental Status: She is alert. GCS: GCS verbal subscore is 1. Psychiatric: Mood and Affect: Mood normal. Behavior: Behavior normal. Results Review {Vanishing Link Review Results :[id number] I have reviewed the latest lab and imaging results. Assessment and Plan: This patient is critically ill. 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 Stopped smoking 3 days prior to surgery Chronic obstructive pulmonary disease with (acute) exacerbation (CMS/HCC) Present on Admission: Yes -not on home O2 - Resume home albuterol and spiriva when appropriate 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 Present on Admission: Yes -Monitor per protocol. S/P CABG x 3 Present on Admission: Not Applicable - CABGx3 (PAREDES-LAD, RSV-OM, RSV-PDA) & LLE EVH with Dr. Al - will continue inotropic support as needed and wean appropriately throughout postoperative course - volume resuscitation in immediate postoperative period as needed - resusme ASA, statin, BB as appropriate Acute blood loss anemia Present on Admission: No -received 2u pRBCs intra-op - continue to monitor - transfuse as indicated Thrombocytopenia (CMS/HCC) Present on Admission: Yes -Continue to trend Electrolyte abnormality Present on Admission: No - replace per ICU protocol Anxiety Present on Admission: Yes -Monitor per protocol. Cancer (CMS/HCC) Present on Admission: Yes -Monitor per protocol. Cardiac volume overload Present on Admission: No -Diuresis Non-Hospital Problems Angina pectoris Carpal tunnel syndrome Vitamin D deficiency Insomnia Chronic systolic HF (heart failure) (CMS/HCC) Overview Signed 11/08/2024 10:33 AM by Chastity Antunez RN Added automatically from request for surgery [id number] Depression S/P total knee replacement, left Shazia Newman APRN * Assessment & Plan Note - Doug Otero MD - 12/17/2024 4:24 PM EDTAssociated Problem(s): S/P CABG x 3 - CABGx3 (PAREDES-LAD, RSV-OM, RSV-PDA) & LLE EVH with Dr. Al - will continue inotropic support as needed and wean appropriately throughout postoperative course - volume resuscitation in immediate postoperative period as needed - resusme ASA, statin, BB as appropriate * Assessment & Plan Note - Doug Otero MD - 12/17/2024 4:24 PM EDTAssociated Problem(s): CAD (coronary artery disease) - See s/p CABG x3 * Assessment & Plan Note - Doug Otero MD - 12/17/2024 4:24 PM EDTAssociated Problem(s): HLD (hyperlipidemia) -restart statin as appropriate * Assessment & Plan Note - Doug Otero MD - 12/17/2024 4:24 PM EDTAssociated Problem(s): Seizures (CMS/HCC) -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 - well controlled with Zonegran - restart when appropriate * Assessment & Plan Note - Doug Otero MD - 12/17/2024 4:24 PM EDTAssociated Problem(s): Lung cancer (CMS/HCC) - 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 Stopped smoking 3 days prior to surgery * Assessment & Plan Note - Doug Otero MD - 12/17/2024 4:24 PM EDTAssociated Problem(s): Bipolar affective disorder (CMS/HCC) -Previously on meds - since been well controlled * Assessment & Plan Note - Doug Otero MD - 12/17/2024 4:24 PM EDTAssociated Problem(s): Chronic obstructive pulmonary disease with (acute) exacerbation (CMS/HCC) -not on home O2 - Resume home albuterol and spiriva when appropriate * Assessment & Plan Note - Doug Otero MD - 12/17/2024 4:24 PM EDTAssociated Problem(s): Diabetes (CMS/HCC) -Pre-diabetes - last A1C 5.8 - resume meds when appropriate - continue to monitor BG * Assessment & Plan Note - Doug Otero MD - 12/17/2024 4:24 PM EDTAssociated Problem(s): Acute blood loss anemia -received 2u pRBCs intra-op - continue to monitor - transfuse as indicated * Assessment & Plan Note - Doug Otero MD - 12/17/2024 4:24 PM EDTAssociated Problem(s): Thrombocytopenia ([facility]) (Resolved 12/21/2024) -Continue to trend * Assessment & Plan Note - Doug Otero MD - 12/17/2024 4:24 PM EDTAssociated Problem(s): On mechanically assisted ventilation ([facility]) (Resolved 12/17/2024) - expected post op - wean as able * Assessment & Plan Note - Doug Otero MD - 12/17/2024 4:24 PM EDTAssociated Problem(s): Electrolyte abnormality (Resolved 12/21/2024) - replace per ICU protocol * Assessment & Plan Note - Doug Otero MD - 12/17/2024 4:24 PM EDTAssociated Problem(s): 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 -Monitor per protocol. * H&P - Doug Otero MD - 12/17/2024 4:22 PM EDTAssociated Order(s): Critical Care Post-Procedure Diagnose(s): 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 Critical Care Performed by: Doug Otero MD Authorized by: Doug Otero MD Critical care provider statement: Critical care time (minutes): 40 Critical care time was exclusive of: Separately billable procedures and treating other patients andteaching time Critical care was time spent personally by me on the following activities: Development of treatmentplan with patient or surrogate, discussions with consultants, discussions with primary provider, evaluation of patient's response to treatment, examination of patient, obtaining history from patient or surrogate, ordering and performing treatments and interventions, ordering and review of laboratory studies, ordering and review of radiographic studies, review of old charts and ventilator management I assumed subsequent critical care for this patient from a provider in my division, on the same day: no Critical care statement: I saw and evaluated the patient with the resident/ fellow. I discussed thecase with the resident/ fellow and agree with the findings and plan as documented. 12/17/24 Beverley Antoine Consulted for critical care management by Cardiothoracic Surgery. HPI Beverley Antoine is a 59 y.o. female who presents with CAD (coronary artery disease) s/p Procedure(s) and Anesthesia Type: * CABG, 2 OR MORE VESSELS - General. The patient arrived to the CVICU after 3vCABG intubated. Airway was easy. The pt received 900 mcg Fentanyl and 9 mg Versed. Intraoperatively, they received 800 mL of crystalloid, 222 mL of cell saverand the following blood products: 2u PRBCs. Patient required epinephrine briefly in the OR while coming off bypass. Significant intra-op included: None. They have V wires and currently have the pacerset to a backup rhythm of 40. Postoperative BARRY showed EF 45-50%, akinetic inferior wall. Upon arrive, the patient was on insulin. Last dose of paralytic was given at 1430. Upon arrival, patient received 100mcg fentanyl and 2mg versed. CI 1.6, epinephrine was started at 0.02mcg/kg/min and 250ml of 5% albumin given. Last lactate 1.8, downtrending. Airway view (if available) was: Not documented Lines/Drains/Tubes: . Active . Name Placement date Placement time Site Days CVC Single Lumen 12/17/24 Right Internal jugular 12/17/24 0816 Internal jugular less than 1 Peripheral IV 12/17/24 Left Antecubital 12/17/24 0722 Antecubital less than 1 Urethral Catheter Temperature probe 16 Fr. 12/17/24 0803 -- less than 1 Y Chest Tube 1 and 2 Mediastinal 36 Fr. Pleural 28 Fr. 12/17/24 1425 -- less than 1 Arterial Line 12/17/24 Right Radial 12/17/24 0752 Radial less than 1 Pulmonary Artery Catheter 12/17/24 Internal jugular Right 12/17/24 0816 Internal jugular less than 1 Last antibiotic: Patient recently received an antibiotic (last 12 hours) Showing orders from other encounters Date/Time Action Medication Dose 12/17/24 1227 Given ceFAZolin (Ancef) injection 1 g 12/17/24 0835 Given ceFAZolin (Ancef) injection 2 g 12/17/24 0810 Given vancomycin (Vancocin) vial for injection 1 g Per the patient questionnaire: Patient answers are not available for this visit. Past Medical History: Past Medical History[1] Past Surgical History: Surgical History[2] Home Medications: Medications Ordered Prior to Encounter[3] Social History: Social History[4] Reviewed and otherwise non-contributory. Family History: Family History[5] Reviewed and otherwise non-contributory. Allergies: Allergies[6] GCS: [place] Coma Scale Score: 15 Review of Systems Unable to perform ROS: Intubated Vital signs: Vitals: 12/17/24 1529 BP: Pulse: 78 Resp: 20 Temp: SpO2: 100% Intake/Output Summary (Last 24 hours) at 12/17/2024 1622 Last data filed at 12/17/2024 1515 Gross per 24 hour Intake 1600 ml Output 2762 ml Net -1162 ml Physical Exam: Sedation was held for the purposes of examination. Physical Exam Constitutional: Appearance: She is not ill-appearing or diaphoretic. Comments: Appears older than stated age HENT: Head: Normocephalic and atraumatic. Right Ear: External ear normal. Left Ear: External ear normal. Nose: Nose normal. Mouth/Throat: Pharynx: Oropharynx is clear. Eyes: General: No scleral icterus. Conjunctiva/sclera: Conjunctivae normal. Neck: Comments: Right CVC dressing clean and dry Cardiovascular: Rate and Rhythm: Normal rate and regular rhythm. Heart sounds: Normal heart sounds. Pulmonary: Effort: Pulmonary effort is normal. Breath sounds: Wheezing present. Abdominal: General: Abdomen is flat. Genitourinary: Comments: Quijano catheter in place Musculoskeletal: Cervical back: Normal range of motion. Right lower leg: No edema. Left lower leg: No edema. Comments: Sternal incision with wound vac Skin: General: Skin is warm and dry. Neurological: Comments: Unable to assess Labs in last 18 hours: CBC WBC 14.26 (H) Hb 11.8 Plt 116 (L) Hct 33.1 (L) ANC ?? INR 1.4 (H), PTT 28, Anti-Xa ?? BMP Na 141 Cl 109 (H) BUN 15 Glu 96 K 4.1 Co2 21 (L) Cr 0.76 Ca 9.6 iCa 4.5 (L) Mg ??, Phos ?? Lactate 1.8 (H) LFT AST 25 AlkPhos 117 T Prot 7.7 ALK 26 Bili <0.2 (L) Alb ?? D.Bili ?? Imaging as available: === 12/13/24 === XR CHEST 2 VIEWS - Narrative - CLINICAL INDICATION: CAD. History of lung cancer per EMR. TECHNIQUE: XR CHEST 2 VIEWS COMPARISON: None. FINDINGS: Left chest wall implanted port with tip overlying the upper SVC. Cardiac silhouette is within normal limits. Left hilar calcified lymph nodes. Bilateral favio are prominent, right greater than left, and elevated. No consolidation. Small right-sided effusion. No pneumothorax. - Impression - Left chest wall implanted port with tip [...] Marni Looney MD on 12/13/2024 4:17 PM Reviewed and agree with above. Assessment and Plan: This patient is critically ill. 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 Stopped smoking 3 days prior to surgery Chronic obstructive pulmonary disease with (acute) exacerbation (CMS/HCC) Present on Admission: Yes -not on home O2 - Resume home albuterol and spiriva when appropriate 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 Present on Admission: Yes -Monitor per protocol. S/P CABG x 3 Present on Admission: Not Applicable - CABGx3 (PAREDES-LAD, RSV-OM, RSV-PDA) & LLE EVH with Dr. Al - will continue inotropic support as needed and wean appropriately throughout postoperative course - volume resuscitation in immediate postoperative period as needed - resusme ASA, statin, BB as appropriate Acute blood loss anemia Present on Admission: Unknown -received 2u pRBCs intra-op - continue to monitor - transfuse as indicated Thrombocytopenia (CMS/HCC) Present on Admission: Unknown -Continue to trend On mechanically assisted ventilation (CMS/HCC) Present on Admission: Not Applicable - expected post op - wean as able Electrolyte abnormality Present on Admission: Unknown - replace per ICU protocol Non-Hospital Problems Angina pectoris Carpal tunnel syndrome Vitamin D deficiency Insomnia Anxiety Cancer ([facility]) Overview Signed 11/08/2024 10:33 AM by Chastity Antunez RN lung Chronic systolic HF (heart failure) ([facility]) Overview Signed 11/08/2024 10:33 AM by Chastity Antunez RN Added automatically from request for surgery [id number] Depression S/P total knee replacement, left Feeding: NPO diet NPO except: Sips with meds Analgesia: Pain Score: 5 HYDROmorphone - 1 MG/ML, 1 MG/ML, 1 MG/ML oxyCODONE - 10 MG, 5 MG pregabalin - 50 MG zonisamide - 100 MG Sedation: Thromboembolic prophylaxis: Last Anticoag Admin heparin injection 1,000 units/mL Given 10,000 Units at 1229 Frequency: As needed There are additional administrations since 12/14/24 1624 that are not shown. Orders not given: enoxaparin (Lovenox) syringe 40 mg Head of bed: >30 Mobility Orders: Mobility Protocol: Strict Bedrest HOB: Other HOB Other: with HOB elevated 30 degrees within 30 minutes of admission if hemodynamically stable Extremity Precautions: No Extremity Precautions Other mobility precautions: Other precautions Other mobility precautions: Sternal precautions Other Other: Supine if IABP or femoral line in place. Out of bed day of surgery if clinical status is appropriate. Ulcer prophylaxis & GI Meds: docusate sodium - 100 MG pantoprazole - 40 MG polyethylene glycol - 17 g senna - 8.6 MG Glucose control: GLU: 96 mg/dL (12/17 722) Spontaneous breathing trials: Bowel regimen (see GI meds above): Invasive lines: Patient Lines/Drains/Airways Status Active Active LDAs Name Placement date Placement time Site Days CVC Single Lumen 12/17/24 Right Internal jugular 12/17/24 0816 Internal jugular less than 1 Peripheral IV 12/17/24 Left Antecubital 12/17/24 0722 Antecubital less than 1 Urethral Catheter Temperature probe 16 Fr. 12/17/24 0803 -- less than 1 Y Chest Tube 1 and 2 Mediastinal 36 Fr. Pleural 28 Fr. 12/17/24 1425 -- less than 1 ETT ETT - single 8 mm 12/17/24 0755 Oral less than 1 Arterial Line 12/17/24 Right Radial 12/17/24 0752 Radial less than 1 Pulmonary Artery Catheter 12/17/24 Internal jugular Right 12/17/24 0816 Internal jugular less than 1 De-escalation: Continue routine ICU care Anna Cortez MD [1] Past Medical History: Diagnosis Date Cancer (CMS/HCC) Lung CHF (congestive heart failure) (CMS/HCC) COPD (chronic obstructive pulmonary disease) (CMS/HCC) Coronary artery disease Diabetes mellitus (CMS/HCC) Hyperlipidemia Myocardial infarction (CMS/HCC) Pneumonia Stroke (CMS/HCC) [2] Past Surgical History: Procedure Laterality Date ABDOMINAL SURGERY multiple, benign tumors and scar tissue ANKLE SURGERY BRONCHOSCOPY CENTRAL VENOUS CATHETER INSERTION HERNIA REPAIR HYSTERECTOMY TOTAL KNEE ARTHROPLASTY Bilateral [3] No current facility-administered medications on file prior to encounter. Current Outpatient Medications on File Prior to Encounter Medication Sig Dispense Refill albuterol 108 (90 Base) MCG/ACT inhaler Inhale 2 puffs 4 times a day. atorvastatin (Lipitor) 40 MG tablet Take 1 tablet by mouth nightly. cholecalciferol (Vitamin D-3) 250 MCG (07819 UT) capsule Take 1 capsule by mouth daily. Cyanocobalamin (VITAMIN B 12 PO) Take by mouth. folic acid (Folvite) 1 MG tablet Take 1 tablet by mouth daily. metFORMIN (Glucophage) 500 MG tablet Take 1 tablet by mouth 2 times a day with meals. Multiple Vitamin (multivitamin) tablet Take 1 tablet by mouth daily. pregabalin (Lyrica) 50 MG capsule Take 1 capsule by mouth 2 times a day. QUEtiapine (SEROquel) 200 MG tablet Take 1 tablet by mouth nightly. rOPINIRole (Requip) 5 MG tablet Take 1 tablet by mouth nightly. sacubitril-valsartan (Entresto) 24-26 MG tablet Take 1 tablet by mouth 2 times a day. Tiotropium Dorothy Monohydrate (SPIRIVA HANDIHALER IN) Inhale 1 puff nightly. zonisamide (Zonegran) 100 MG capsule Take 1 capsule by mouth 3 times a day. Acetaminophen 500 MG pack Take by mouth. [DISCONTINUED] bisoprolol (Zebeta) 5 MG tablet Take 1 tablet by mouth daily. (Patient not taking: Reported on 11/08/2024) [4] Social History Socioeconomic History Marital status: Tobacco Use Smoking status: Every Day Current packs/day: 0.50 Average packs/day: 0.5 packs/day for 50.6 years (25.3 ttl pk-yrs) Types: Cigarettes Start date: 1974 Smokeless tobacco: Never Tobacco comments: She has been quitting, very close. Vaping Use Vaping status: Never Used Substance and Sexual Activity Alcohol use: Not Currently Drug use: Yes Types: Marijuana Comment: daily, joint, takes a few hits throughout day Social Drivers of Health Food Insecurity: No Food Insecurity (04/25/2023) Received from [facility] Hunger Vital Sign Within the past 12 months, you worried that your food would run out before you got the money to buymore.: Never true Within the past 12 months, the food you bought just didn't last and you didn't have money to get more.: Never true Transportation Needs: No Transportation Needs (04/25/2023) Received from [facility] PRAPARE - Transportation Lack of Transportation (Medical): No Lack of Transportation (Non-Medical): No Housing Stability: Low Risk (04/25/2023) Received from [facility] Housing Stability Vital Sign Unable to Pay for Housing in the Last Year: No Number of Places Lived in the Last Year: 0 Unstable Housing in the Last Year: No [5] Family History Problem Relation Name Age of Onset Hypertension Father Diabetes type II Father Heart disease Father Heart disease Brother Anesthesia problems Neg Hx Malig Hyperthermia Neg Hx [6] Allergies Allergen Reactions Poison Arianna Extract Other - please document in the comment field and Unknown - Patient states they do not know rxn details State allergic to poison arianna weed-causes blisters,oozing. Wasp Venom Protein Anaphylaxis Short of breath,wheezing [...] please document in the comment field seizure * Progress Notes - Marietta Short RN - 12/17/2024 10:41 AM EDT Case Management Adult Progress Note Beverley Antoine 59 y.o. female CSN: [id number] Admission: 12/17/2024 5:11 AM Primary Problem: CAD (coronary artery disease) Anticipated Discharge Date: tbd Additional Comments: CM chart review. Cm attended rounding this AM to discuss POC with MD. Patient is not medically ready at this time, currently in OR for CABG. Cm/SW will follow and arrange any discharge needs closer to discharge. Marietta Short RN * Op Note - Boris Al MD - 12/17/2024 8:51 AM EDT Operative Note Median sternotomy, coronary artery bypass grafting x3, endoscopic vein harvest - left lower extremity -greater saphenous. -Vein from the ascending aorta to obtuse marginal coronary artery -Vein from the ascending aorta to the distal right coronary artery -Left internal mammary artery skeletonized in Situ to the left anterior descending coronary artery. ( 2 vein grafts, 1 arterial graft, endoscopic vein harvest ) Date: 12/17/24 Location: [facility] OR Name: Beverley Antoine, : 1965, Diagnoses: Pre-op Diagnosis 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 (CMS/HCC) Post-op Diagnosis 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 (CMS/HCC) Procedure(s): Median sternotomy, coronary artery bypass grafting x3, endoscopic vein harvest - left lower extremity -greater saphenous. -Vein from the ascending aorta to obtuse marginal coronary artery -Vein from the ascending aorta to the distal right coronary artery -Left internal mammary artery skeletonized in Situ to the left anterior descending coronary artery. ( 2 vein grafts, 1 arterial graft, endoscopic vein harvest ) Attending Surgeon(s): * Boris Al - Primary * Mo Jaeger - Assisting Concession Attendant(s): * Dawson Mclaughlin MD - Resident - Assisting * Renuka Lowe DO - Resident - Assisting Alhaji Jaeger PAC performed endoscopic vein harvest Dawson Mclaughlin MD PGY 6 was 1st assistant branch manager for the entire case Renuka Lowe OD PGY 2 scrubbed in to help close Anesthesia: General ASA: IV Blood Administration: Blood Product Administration History Product Date Volume Status Transfuse RBC RBC 12/17/2024 350 mL Completed 12/17/24 1550 RBC 12/17/2024 350 mL Completed 12/17/24 1550 Estimated Blood Loss: to 200 mL Drains: Urethral Catheter Temperature probe 16 Fr. (Active) Y Chest Tube 1 and 2 Mediastinal 36 Fr. Pleural 28 Fr. (Active) Specimen: none Findings: The patient's ventricular function looked normal. All conduits were on the small size as were the soboba vessels. The patient from cardiopulmonary bypass uneventfully. She appeared to have mild aortic regurgitation. Her lungs met in the midline on top of the heart consistent with COPD Indications: Beverley Antoine is an 59 y.o. female who is having surgery for 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 (CMS/HCC). She was referred to our attention by Dr. Augustin Ashraf Analysis Analyst Juan C Smith . She was experiencing angina with exertion. . Her cardiac catheterization was significant for left main 60-70% stenosis with a plethora collateral vessels and a chronically occluded right coronary artery. She has a history oflung cancer and has been treated with aggressive chemotherapy and currently doing quite well. Narrative: The patient was taken to the operating room and placed on the table in the supine position. Initialmonitoring lines were placed by our anesthesia colleagues. General endotracheal anesthesia was induced, monitoring lines were placed, a Hutchinson-Valorie catheter was floated into position and a transesophageal echo probe was positioned by Anesthesia. The patient was then centered on the operating room table. Pressure points were padded. Patient was then prepped and draped in a sterile manner from chin to ankles, a time-out was called and the patient was identified, the proposed procedure was announcedand confirmed by all in the room. Antibiotics were confirmed to have been administered. A median sternotomy incision was made. Electrocautery was used dissect down to the anterior table of the sternum. The lower part of the manubrium was identified. The fascial plane and mid manubrium was dissected through with electrocautery into a clear space underneath the sternum. The midline was i dentified and she has and deepened to stay in the midline to the xiphoid. Anesthesiologists were asked hold ventilation and the sternum was then divided with an oscillating saw. Ventilations were then resumed. Hemostasis was achieved on the sternal edge with electrocautery. Bone wax was used sparingly to stop the bleeding from the bone marrow. Incision was made on the left lower extremity just below the knee. The left greater saphenous vein was dissected free. The endoscope was placed over the vein and used to bluntly dissect the vein fromsurrounding tissue. Once the initial dissection was completed a bipolar device was attached to the scope. The branches of the vein were divided and cauterized with the bipolar device. Soft tissue surrounding and connected to the vein was then removed and cauterized using the bipolar device. Once the vein was completely mobilized it was endoscopically tied on the groin side and tied under direct vision distally. The vein was then transected using the bipolar device proximally and the scissors distally. It was then extracted from the leg and immediately cannulated with a vessel cannula and flushed with vein solution which was heparinized. The branches of the vein were then tied with 4-0 silk ties, controlled with Ligaclips, or suture ligated with 7 0 Prolene as indicated. Hemostasis was then checked. The leg was then closed in deep layers of Vicryl. The skin was reapproximated with a subcuticular stitch of Monocryl. At the end of the case the endoscopic vein tunnel was rolled with a towel expressing any accumulated blood out of the incision. It was then sealed with Dermabond. A dressing was applied and Amelia wrap was applied to the leg. The Rultract retractor was placed on the patient's left side and the left chelsea sternum elevated gently. Electrocautery was used dissect laterally and enter the pleural space. The pleural space was widely opened visualization. The internal mammary artery was identified. The electrocautery power was turned down to 25. An incision was made with cautery between the internal mammary artery and its lateral vein. The mammary was teased away from surrounding structures. It was then mobilized using an in situ skeletonization technique. Very little cautery was used on the chest wall. Hemostasis was achieved with Ligaclips for branches of the mammary artery and point hemorrhage for any ???field?? bleeding. The mammary was mobilized distally to its bifurcation, and proximally to the point were it would fall underneath the lung was not be pushed up to the chest wall once ventilations were begun post anastomosis. Once the ANASTASIA was completely mobilized it was sprayed with a papaverine solution. At the appropriate time (once we were sure to all was ready to go on cardiopulmonary bypass) heparin was administered and the ANASTASIA subsequently triply clipped distally next the chest wall and singly clipped within a cm these clips and divided between these 2 sets of clips. It was then laid on the chest wall underneath papaverine soaked sponge. The mammary bed was then examined for bleeding and bleedingcontrolled. The Rultract retractor was then removed and placed on the back table for future use,. The mammary artery appeared to be a suitable conduit. Wound towels were placed on the sternal edges. The Aesculap retractor was inserted in the sternum spread open. The pericardium was opened and pericardial stay sutures were placed. Full-dose heparin was requested to be administered by our anesthesia colleagues, they verbally confirmed that heparin had been administered. Ascending aorta was palpated and felt to be adequate for cannulation. A pursestring suture was in the ascending aorta and snared with tourniquet. With ACTs above 400 and counting and aortic cannula was inserted into the ascending aorta and controlled with a Pilar tourniquet. The cannula and tourniquet were tied together and the cannula secured to the wound towel and to the arterial inflow tubingsecured by the patient's side. A pursestring suture was placed around the auricle of the right atrium. An incision was made in the auricle and venous cannula placed and positioned with its tip in theinferior vena cava. This was similarly secured with a Rumel tourniquet. A 4-0 horizontal pledgeted m attress suture was placed in the ascending aorta and antegrade cardioplegia catheter with a side vent was placed and secured with a Pilar tourniquet. 100 mL of pump prime was then infused. Pressure on the pump came back to normal. There is no evidence of dissection or adverse effect on the aorta. A CTs were once again confirmed to be above 400. Cardiopulmonary bypass was then instituted. Systemic cooling was begun. The heart became bradycardic. Cold oxygenated blood antegrade cardioplegia wasinfused. Ice was placed on the right ventricle. The heart fibrillated. An aortic cross-clamp was placed. 1 L of cold oxygenated blood cardioplegia was infused resulting in asystole. From this point forward cardioplegia was administered every 20 minutes throughout the entire cross-clamp or as neededfor electrical or were mechanical cardiac activity. Right coronary artery was opened with a 11. Blade and a vein to artery anastomosis constructed witha running 7 0 Prolene suture. Runoff via hand injection with a syringe was excellent. A search was made for an obtuse marginal coronary artery and initially vessel could not be found. We then looked further downstream and identified an obtuse marginal. It was opened with a 11. Blade and a vein to artery anastomosis was constructed with a running 7 0 Prolene suture. Runoff via hand injection with a syringe was also excellent. A bulldog clamp was placed across the left internal mammary artery proximally. The left anterior descending coronary artery was opened with a 11. Blade. The mammary artery was then cut to an appropriate length and angle and anastomosed to the left anterior descending coronary artery with a running 7 0 Prolene suture. Flashing the bulldog clamp resulted in excellent down stream coronary flow with a hemostatic anastomosis. Two aortotomy is were made in the ascending aorta. Two proximal anastomosis were constructed with arunning 6 0 Prolene suture. Bulldog clamps placed across these grafts. Temporary ventricular pacing wires were placed. Warm antegrade cardioplegia was administered. The vein grafts were de-aired and the bulldog clamps removed. Pump flows were brought down, the aortic crossclamp was removed, pump flows were brought back up. The patient was VVI paced at a rate of 40. The patient was allowed to reperfusing rewarming to a core temperature of 36?? C at this point she had resumed a normal sinus rhythm. She was slowly weaned from cardiopulmonary bypass uneventfully. Anastomotic sites were checked and were hemostatic. Cannulas were removed and protamine administered. The patient remained hemodynamically stable. A diligent search was made for Bleeding in the operative field. The Rultract retractor was then deployed in the mammary bed checked for bleeding. Once bleeding was under control the heart was once again lifted and anastomotic sites reviewed. 1-36 Albanian mediastinal tube was placed, 1-28 Albanian left pleural tube was placed.Chest tubes and pacing wires were secured to the anterior abdominal wall. The sternum was reapproximated with 6. Usiico-po-tmzzf stainless steel wires, the fascia was closed with a running PDS suture, subcutaneous tissue was closed with running Vicryl suture, skin was reapproximated with a subcuticular stitch of Monocryl. Dressings were applied and the patient was transferred to intensive care unit bed. She was subsequently transported to our intensive care unit hemodynamically stable. This concludes operative summary Dr. Al dictating thank you. Complications: None; patient tolerated the procedure well. Submitted by: Boris Al MD - 12/17/2024 * H&P - Renuka Lowe DO - 12/17/2024 6:26 AM EDT Reason for visit / Chief Complaint: Day of Surgery History of present illness: Beverley Antoine is a 59 y.o. female referred to us in consultation by Dr. Augustin Fernandez in regards to CAD. Ms. Antoine has a medical Hx that includes Stage IV SCC of the lung where she has completed chemo/rads after Dx in 2020, DM II, epilepsy, COPD, bipolar, and tobacco abuse disorder. Today she reports no recent changes to her medical history. Denies any recent illness or antibioticuse. She stopped taking her metformin 2 days ago. Does not take a beta-william due to borderline blood pressure and heart rate. Her chronic comorbid conditions that impact our treatment planning include: Pulmonary Heart Disease/Congestive Heart Failure, Atherosclerosis, non- peripheral, T2DM, chemo/radsfor stage IV lung SCC NYHA Classification: Class II: Mild symptoms with ordinary activity. Active Problems: Patient Active Problem List Diagnosis Date Noted 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 12/17/2024 Cancer ([facility]) 11/08/2024 CAD (coronary artery disease) 11/07/2024 Angina pectoris 11/07/2024 Carpal tunnel syndrome 11/07/2024 HLD (hyperlipidemia) 11/07/2024 Vitamin D deficiency 11/07/2024 Bipolar affective disorder ([facility]) 11/07/2024 Diabetes ([facility]) 11/07/2024 Seizures ([facility]) 11/07/2024 Insomnia 11/07/2024 Lung cancer ([facility]) 11/07/2024 Anxiety 11/07/2024 Tobacco dependence 11/07/2024 Chronic obstructive pulmonary disease with (acute) exacerbation ([facility]) 03/07/2023 Chronic systolic HF (heart failure) ([facility]) 02/16/2022 Depression 08/11/2017 S/P total knee replacement, left 08/11/2017 Medical History: Past Medical History Pertinent Negatives[1] Surgical History: Surgical History[2] Social History: Tobacco: Tobacco Use: High Risk (12/13/2024) Patient History Smoking Tobacco Use: Every Day [...] tablet by mouth nightly. Lela Toro MD cholecalciferol (Vitamin D-3) 250 MCG (40743 UT) capsule Take 1 capsule by mouth [...] 2 times a day. Lela Toro MD Tiotropium Dorothy Monohydrate (SPIRIVA HANDIHALER IN) Inhale 1 puff nightly. Lela Toro MD zonisamide (Zonegran) 100 MG capsule Take 1 capsule by mouth 3 times a day. Lela Toro MD bisoprolol (Zebeta) 5 MG tablet Take 1 tablet by mouth daily. Patient not taking: Reported on 11/08/2024 12/13/24 Lela Toro MD Physical exam: Visit Vitals BP 103/62 (BP Location: Left arm, Patient Position: Lying) Pulse 74 Temp 36.8 ??C (98.2 ??F) (Oral) SpO2 100% CONSTITUTIONAL: NAD, A&O x3 HEAD: Normocephalic, atraumatic; EYES: EOMI NECK: Supple, No JVD; trachea midline CARDIAC: Regular rate and rhythm CHEST/PULM: Symmetrical chest wall rise; NWOB GI: Soft and compressible; NT, ND; No peritoneal signs EXTREMITIES: Normal ROM in BUE/BLE SKIN: Otherwise warm and dry NEUROLOGIC: No focal deficits; motor and sensation intact PSYCH: Appropriate mood and responses Labs in last 18 hours: CBC WBC ?? Hb ?? Plt ?? Hct ?? ANC ?? INR ??, PTT ??, Anti-Xa ?? BMP Na ?? Cl ?? BUN ?? Glu ?? K ?? Co2 ?? Cr ?? Ca ?? iCa ?? Mg ??, Phos ?? Lactate ?? LFT AST ?? AlkPhos ?? T Prot ?? ALK ?? Bili ?? Alb ?? D.Bili ?? Results from last 7 days Lab Units 12/13/24 1242 HEMOGLOBIN A1C % 5.8* Imaging: No echocardiogram results found for the past 12 months TTE from 10/29/2024 Moderate AI Mild MR EF=45% Cardiac Cath Results: Ostial L main =60-70% SECOND BAKER of RCA Impression: Beverley Antoine is a 59 y.o. female with multivessel coronary artery disease that presents for elective coronary artery bypass grafting. - Informed consent reviewed and in the chart - No laterality requiring marking - Proceed with operation as scheduled - Expect admission to CVICU postoperatively [1] Past Medical History: Diagnosis Date Cancer (CMS/HCC) Lung CHF (congestive heart failure) ([facility]/HCC) COPD (chronic obstructive pulmonary disease) ([facility]/HCC) Coronary artery disease Diabetes mellitus ([facility]/HCC) Hyperlipidemia Myocardial infarction ([facility]/HCC) Pneumonia Stroke ([facility]/HCC) [2] Past Surgical History: Procedure Laterality Date ABDOMINAL SURGERY multiple, benign tumors and scar tissue ANKLE SURGERY BRONCHOSCOPY CENTRAL VENOUS CATHETER INSERTION HERNIA REPAIR HYSTERECTOMY TOTAL KNEE ARTHROPLASTY Bilateral [3] Allergies Allergen Reactions Poison Arianna Extract Other - please document in the comment field and Unknown - Patient states they do not know rxn details State allergic to poison arianna weed-causes blisters,oozing. Wasp Venom Protein Anaphylaxis Short of breath,wheezing [...] seizure Cosigned by Boris Al MD at 12/30/2024 2:45 PM EDT Associated attestation - Boris Al MD - 12/30/2024 2:45 PM EDT I saw and evaluated the patient with the resident/fellow. I discussed the case with the resident/fellow and agree with the findings and plan as documented. documented in this encounter Plan of Treatment Scheduled Referrals Name Type Priority Associated Diagnoses Order Schedule Discharge Ambulatory referral to Cardiac Rehab Outpatient Referral Routine 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 1 Occurrences starting 12/17/2024 until 06/20/2026 Discharge Ambulatory referral to Cardiac Rehab Outpatient Referral Routine S/P CABG x 3 1 Occurrences starting 12/21/2024 until 12/21/2025 documented as of this encounter Procedures Procedure Name Priority Date/Time Associated Diagnosis Comments XR CHEST 2 VIEWS Routine 12/21/2024 5:45 AM EDT CBC W/O DIFFERENTIAL Routine 12/21/2024 3:37 AM EDT PHOSPHORUS, PLASMA Routine 12/21/2024 3: 37 AM EDT MAGNESIUM, PLASMA Routine 12/21/2024 3:3 7 AM EDT BASIC METABOLIC PANEL, PLASMA Routine 12/21/2024 3:37 AM EDT XR CHEST 1 VIEW Routine 12/20/2024 6:19 AM EDT N-TERMINAL PROBNP, PLASMA Routine 12/20/2024 4:41 AM EDT CBC W/O DIFFERENTIAL Routine 12/20/2024 4:41 AM EDT PHOSPHORUS, PLASMA Routine 12/20/2024 4: 41 AM EDT MAGNESIUM, PLASMA Routine 12/20/2024 4:4 1 AM EDT BASIC METABOLIC PANEL, PLASMA Routine 12/20/2024 4:41 AM EDT ECG ADULT STAT 12/19/2024 6:09 PM EDT POCT GLUCOSE METER UNSOLICITED RESULTS Routine 12/19/2024 5:24 PM EDT POCT GLUCOSE METER UNSOLICITED RESULTS Routine 12/19/2024 2:24 PM EDT POCT GLUCOSE METER UNSOLICITED RESULTS Routine 12/19/2024 8:25 AM EDT XR ABDOMEN 1 VIEW Routine 12/19/2024 2:3 4 AM EDT XR CHEST 1 VIEW Routine 12/19/2024 2:34 AM EDT N-TERMINAL PROBNP, PLASMA Add-On 12/19/2024 1:26 AM EDT CBC W/O DIFFERENTIAL Routine 12/19/2024 1:26 AM EDT PHOSPHORUS, PLASMA Routine 12/19/2024 1: 26 AM EDT MAGNESIUM, PLASMA Routine 12/19/2024 1:2 6 AM EDT LIPID PROFILE, PLASMA Add-On 12/19/2024 1:26 AM EDT BASIC METABOLIC PANEL, PLASMA Routine 12/19/2024 1:26 AM EDT POCT GLUCOSE METER UNSOLICITED RESULTS Routine 12/18/2024 10:27 PM EDT POCT GLUCOSE METER UNSOLICITED RESULTS Routine 12/18/2024 6:23 PM EDT PEP THERAPY Routine 12/18/2024 4:00 PM EDT POCT GLUCOSE METER UNSOLICITED RESULTS Routine 12/18/2024 1:18 PM EDT PEP THERAPY Routine 12/18/2024 12:00 PM EDT POCT GLUCOSE METER UNSOLICITED RESULTS Routine 12/18/2024 9:50 AM EDT MAGNESIUM, PLASMA Routine 12/18/2024 9:5 0 AM EDT RENAL FUNCTION PANEL, PLASMA Routine 12/18/2024 9:50 AM EDT PEP THERAPY Routine 12/18/2024 8:00 AM EDT POCT GLUCOSE METER UNSOLICITED RESULTS Routine 12/18/2024 6:27 AM EDT PEP THERAPY Routine 12/18/2024 4:00 AM EDT ECG ADULT Routine 12/18/2024 3:51 AM EDT XR CHEST 1 VIEW Routine 12/18/2024 2:57 AM EDT CBC W/O DIFFERENTIAL Routine 12/18/2024 12:42 AM EDT HEMOGLOBIN Timed 12/18/2024 12:42 AM EDT HEMATOCRIT, BLOOD Timed 12/18/2024 12: 42 AM EDT POTASSIUM, PLASMA Timed 12/18/2024 12: 42 AM EDT PHOSPHORUS, PLASMA Routine 12/18/2024 12 :42 AM EDT MAGNESIUM, PLASMA Routine 12/18/2024 12: 42 AM EDT BASIC METABOLIC PANEL, PLASMA Routine 12/18/2024 12:42 AM EDT POCT GLUCOSE METER UNSOLICITED RESULTS Routine 12/18/2024 12:41 AM EDT BLOOD GAS PANEL, ARTERIAL Routine 12/18/2024 12:41 AM EDT PEP THERAPY Routine 12/18/2024 12:00 AM EDT ID CRITICAL CARE, ADDL 30 MIN Routine 12/17/2024 11:16 PM EDT Acute blood loss anemia Cardiac volume overload S/P CABG x 3 HEMOGLOBIN Timed 12/17/2024 8:07 PM EDT HEMATOCRIT, BLOOD Timed 12/17/2024 8:0 7 PM EDT POTASSIUM, PLASMA Timed 12/17/2024 8:0 7 PM EDT BLOOD GAS PANEL, ARTERIAL Timed 12/17/2024 8:07 PM EDT PEP THERAPY Routine 12/17/2024 8:00 PM EDT HEMOGLOBIN Timed 12/17/2024 6:43 PM EDT HEMATOCRIT, BLOOD Timed 12/17/2024 6:4 3 PM EDT POTASSIUM, PLASMA Timed 12/17/2024 6:4 3 PM EDT BLOOD GAS PANEL, ARTERIAL Timed 12/17/2024 6:43 PM EDT POCT GLUCOSE METER UNSOLICITED RESULTS Routine 12/17/2024 6:00 PM EDT PHOSPHORUS, PLASMA Routine 12/17/2024 5: 58 PM EDT MAGNESIUM, PLASMA Routine 12/17/2024 5:5 8 PM EDT BASIC METABOLIC PANEL, PLASMA Routine 12/17/2024 5:58 PM EDT XR CHEST 1 VIEW STAT 12/17/2024 5:38 PM EDT PEP THERAPY Routine 12/17/2024 5:33 PM EDT PEP THERAPY Routine 12/17/2024 5:33 PM EDT PEP THERAPY Routine 12/17/2024 5:33 PM EDT PEP THERAPY Routine 12/17/2024 5:33 PM EDT PEP THERAPY Routine 12/17/2024 5:33 PM EDT PEP THERAPY Routine 12/17/2024 5:33 PM EDT OXYGEN THERAPY Routine 12/17/2024 5:31 PM EDT OXYGEN THERAPY Routine 12/17/2024 5:31 PM EDT EXTUBATION Routine 12/17/2024 5:25 PM EDT BLOOD GAS PANEL, ARTERIAL Routine 12/17/2024 5:15 PM EDT POCT GLUCOSE METER UNSOLICITED RESULTS Routine 12/17/2024 4:52 PM EDT ID CRITICAL CARE, E/M 30-74 MINUTES Routine 12/17/2024 4:22 PM EDT 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 SHAHEEN AURIS SURVEILLANCE BY PCR Routine 12/17/2024 3:40 PM EDT MULTI DRUG RESISTANCE TEST Routine 12/17/2024 3:40 PM EDT APTT STAT 12/17/2024 3:39 PM EDT PROTHROMBIN TIME(PT) / INR STAT 12/17/2024 3:39 PM EDT CBC W/O DIFFERENTIAL STAT 12/17/2024 3:39 PM EDT PHOSPHORUS, PLASMA STAT 12/17/2024 3: 39 PM EDT MAGNESIUM, PLASMA STAT 12/17/2024 3:3 9 PM EDT BLOOD GAS PANEL, ARTERIAL STAT 12/17/2024 3:39 PM EDT BASIC METABOLIC PANEL, PLASMA STAT 12/17/2024 3:39 PM EDT ECG ADULT STAT 12/17/2024 3:32 PM EDT PEP THERAPY Routine 12/17/2024 3:05 PM EDT POCT ACT UNSOLICITED RESULTS Routine 12/17/2024 2:11 PM EDT TRANSFUSE RED BLOOD CELLS Routine 12/17/2024 1:59 PM EDT POCT ARTERIAL BLOOD GAS GEM UNSOLICITED RESULTS Routine 12/17/2024 1:52 PM EDT POCT ACT UNSOLICITED RESULTS Routine 12/17/2024 1:48 PM EDT POCT ARTERIAL BLOOD GAS GEM UNSOLICITED RESULTS Routine 12/17/2024 1:27 PM EDT POCT ACT UNSOLICITED RESULTS Routine 12/17/2024 1:23 PM EDT POCT ARTERIAL BLOOD GAS GEM UNSOLICITED RESULTS Routine 12/17/2024 12:54 PM EDT POCT ACT UNSOLICITED RESULTS Routine 12/17/2024 12:51 PM EDT POCT ARTERIAL BLOOD GAS GEM UNSOLICITED RESULTS Routine 12/17/2024 12:22 PM EDT POCT ACT UNSOLICITED RESULTS Routine 12/17/2024 12:18 PM EDT POCT ARTERIAL BLOOD GAS GEM UNSOLICITED RESULTS Routine 12/17/2024 11:59 AM EDT POCT ACT UNSOLICITED RESULTS Routine 12/17/2024 11:55 AM EDT POCT ARTERIAL BLOOD GAS GEM UNSOLICITED RESULTS Routine 12/17/2024 11:33 AM EDT POCT ACT UNSOLICITED RESULTS Routine 12/17/2024 11:28 AM EDT POCT ARTERIAL BLOOD GAS GEM UNSOLICITED RESULTS Routine 12/17/2024 11:04 AM EDT TRANSFUSE RED BLOOD CELLS Routine 12/17/2024 10:37 AM EDT POCT ARTERIAL BLOOD GAS GEM UNSOLICITED RESULTS Routine 12/17/2024 10:33 AM EDT POCT ACT UNSOLICITED RESULTS Routine 12/17/2024 10:30 AM EDT POCT ARTERIAL BLOOD GAS GEM UNSOLICITED RESULTS Routine 12/17/2024 7:57 AM EDT POCT ACT UNSOLICITED RESULTS Routine 12/17/2024 7:52 AM EDT PREPARE RBC STAT 12/17/2024 7:50 AM EDT APTT Routine 12/17/2024 7:23 AM EDT PROTHROMBIN TIME(PT) / INR STAT 12/17/2024 7:23 AM EDT CBC W/O DIFFERENTIAL STAT 12/17/2024 7:23 AM EDT TYPE AND SCREEN Routine 12/17/2024 7:23 AM EDT COMPREHENSIVE METABOLIC PANEL, PLASMA Routine 12/17/2024 7:23 AM EDT ID CABG, ARTERIAL, SINGLE 12/17/2024 7:18 AM EDT 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 ([facility]/HCC) POCT GLUCOSE METER UNSOLICITED RESULTS Routine 12/17/2024 6:08 AM EDT documented in this encounter Results * XR Chest 2 Views (12/21/2024 5:45 AM EDT) Anatomical Region Laterality Modality Chest Computed Radiogr aphy Impressions 12/21/2024 10:00 AM EDT Stable exam. CRITICAL RESULT: No. COMMUNICATION: Per this written report. Preliminary report signed by Rafaela Loyola MD on 12/21/2024 9:27 AM By electronically signing this report, I, the attending physician, attest that I have personally reviewed the images/data for the above examination(s) and agree with the final edited report. Drafted by Rafaela Loyola MD on 12/21/2024 9:22 AM Final report signed by Mike Sheffield MD on 12/21/2024 10:00 AM Narrative 12/21/2024 10:00 AM EDT CLINICAL INDICATION: CABG TECHNIQUE: XR CHEST 2 VIEWS COMPARISON: Chest radiograph December 20, 2024 FINDINGS: Interval removal of mediastinal chest tubes. Left chest wall implanted port is in stable position. Median sternotomy wires are intact. No new consolidation. Similar-appearing bibasilar atelectasis. Stable small right-sided effusion. No pneumothorax. Procedure Note Mike Sheffield MD - 12/21/2024 CLINICAL INDICATION: CABG TECHNIQUE: XR CHEST 2 VIEWS COMPARISON: Chest radiograph December 20, 2024 FINDINGS: Interval removal of mediastinal chest tubes. Left chest wall implantedport is in stable position. Median sternotomy wires are intact. No newconsolidation. Similar-appearing bibasilar atelectasis. Stable smallright-sided effusion. No pneumothorax. IMPRESSION: Stable exam. CRITICAL RESULT: No. COMMUNICATION: Per this written report. Preliminary report signed by Rafaela Loyola MD on 12/21/2024 9:27 AM By electronically signing this report, I, the attending physician, attestthat I have personally reviewed the images/data for the aboveexamination(s) and agree with the final edited report. Drafted by Rafaela Loyola MD on 12/21/2024 9:22 AM Final report signed by Mike Sheffield MD on 12/21/2024 10:00 AM us Andrew SAHA IMG XR PROCEDURES Final Res ult * (ABNORMAL) Phosphorus (12/21/2024 3:37 AM EDT) Phosphorus, Plasma 1.7(L) 2.5 - 4.5 mg/dL 12/21/2024 4:56 AM EDT [facility] Blood Venous blood specimen / Unknown Venipuncture / Unknown 12/21/2024 3:37 AM EDT 12/21/2024 4:20 AM EDT Boris Al MD LAB BLOOD ORDERABLES Final R esult Performing Organization Address City/[facility]/ZIP Co de Phone Number [facility] [address] [place] [address] * (ABNORMAL) Magnesium (12/21/2024 3:37 AM EDT) Magnesium, Plasma 1.8(L) 1.9 - 2.4 mg/dL 12/21/2024 4:56 AM EDT [facility] Blood Venous blood specimen / Unknown Venipuncture / Unknown 12/21/2024 3:37 AM EDT 12/21/2024 4:20 AM EDT Boris Al MD LAB BLOOD ORDERABLES Final R esult Performing Organization Address City/[facility]/ZIP Co de Phone Number [facility] [address] [place] [address] * (ABNORMAL) CBC (12/21/2024 3:37 AM EDT) WBC Count 7.29 3.70 - 10.30 10*3/uL LAB HEMATOLOGY METHOD 12/21/2024 4:31 AM EDT [facility] RBC Count 2.78(L) 3.90 - 5.20 10*6/uL LAB HEMATOLOGY METHOD 12/21/2024 4:31 AM EDT [facility] HGB 8.7(L) 11.2 - 15.7 g/dL LAB HEMATOLOGY METHOD 12/21/2024 4:31 AM EDT [facility] HCT 26.0(L) 34.0 - 45.0 % LAB HEMATOLOGY METHOD 12/21/2024 4:31 AM EDT [facility] Platelet Count 133(L) 155 - 369 10*3/uL LAB HEMATOLOGY METHOD 12/21/2024 4:31 AM EDT [facility] MCV 94 79 - 98 fL LAB HEMATOLOGY METHOD 12/21/2024 4:31 AM EDT [facility] MCH 31.3 26.0 - 32.0 pg LAB HEMATOLOGY METHOD 12/21/2024 4:31 AM EDT [facility] MCHC 33.5 30.7 - 35.5 g/dL LAB HEMATOLOGY METHOD 12/21/2024 4:31 AM EDT [facility] RDW 16.3(H) 11.5 - 14.5 % LAB HEMATOLOGY METHOD 12/21/2024 4:31 AM EDT [facility] MPV 11.4 8.8 - 12.5 fL LAB HEMATOLOGY METHOD 12/21/2024 4:31 AM EDT [facility] nRBC 0.0 <=0.0 per 100 WBCs LAB HEMATOLOGY METHOD 12/21/2024 4:31 AM EDT [facility] Blood Venous blood specimen / Unknown Venipuncture / Unknown 12/21/2024 3:37 AM EDT 12/21/2024 4:19 AM EDT us Boris Al MD LAB BLOOD ORDERABLES Final R esult [facility] [address] [place] [address] * (ABNORMAL) Basic metabolic panel (12/21/2024 3:37 AM EDT) Glucose, Plasma 113(H) 74 - 99 mg/dL 12/21/2024 4:56 AM EDT [facility] BUN, Plasma 15 8 - 23 mg/dL 12/21/2024 4:56 AM EDT [facility] Creatinine, Plasma 0.56(L) 0.60 - 1.10 mg/dL 12/21/2024 4:56 AM EDT [facility] BUN/Creatinine Ratio 27 12/21/2024 4:56 AM EDT [facility] Sodium, Plasma 137 136 - 145 mmol/L 12/21/2024 4:56 AM EDT [facility] Potassium, Plasma 3.5(L) 3.6 - 4.9 mmol/L 12/21/2024 4:56 AM EDT [facility] Chloride, Plasma 104 97 - 107 mmol/L 12/21/2024 4:56 AM EDT [facility] CO2, Plasma 24 22 - 29 mmol/L 12/21/2024 4:56 AM EDT [facility] Anion Gap 9 6 - 16 mmol/L 12/21/2024 4:56 AM EDT [facility] Total Calcium, Plasma 8.0(L) 8.9 - 10.2 mg/dL 12/21/2024 4:56 AM EDT [facility] eGFRcr 104.6 mL/min/1.7 3m*2 12/21/2024 4:56 AM EDT [facility] Comment:Reported eGFRcr in m L/min/1.73m2 is based the CKD-EPI 2020 equation that does not use a race coefficient. Blood Venous blood specimen / Unknown Venipuncture / Unknown 12/21/2024 3:37 AM EDT 12/21/2024 4:20 AM EDT us Boris Al MD LAB BLOOD ORDERABLES Final R esult [facility] [address] [place] [address] * XR Chest 1 View (12/20/2024 6:19 AM EDT) Anatomical Region Laterality Modality Chest Digital Radiogra phy Impressions 12/20/2024 9:51 AM EDT Stable aeration. CRITICAL RESULT: No. COMMUNICATION: Per this written report. By electronically signing this report, I, the attending physician, attest that I have personally reviewed the images/data for the above examination(s) and agree with the final edited report. Drafted by Alvin Cespedes MD on 12/20/2024 9:12 AM Final report signed by Mike Sheffield MD on 12/20/2024 9:51 AM Narrative 12/20/2024 9:51 AM EDT CLINICAL INDICATION: Post-Op Cardiac Surgery TECHNIQUE: XR CHEST 1 VIEW COMPARISON: December 19, 2024 FINDINGS: Stable position of left chest wall port and left chest tube. Right internal jugular catheter has been removed. Stable cardiac silhouette and mediastinal contours. Stable perihilar opacities. Similar bibasilar atelectasis. Stable small right pleural effusion. No pneumothorax. Procedure Note Mike Sheffield MD - 12/20/2024 CLINICAL INDICATION: Post-Op Cardiac Surgery TECHNIQUE: XR CHEST 1 VIEW COMPARISON: December 19, 2024 FINDINGS: Stable position of left chest wall port and left chest tube. Rightinternal jugular catheter has been removed. Stable cardiac silhouette and mediastinal contours. Stable perihilaropacities. Similar bibasilar atelectasis. Stable small right pleuraleffusion. No pneumothorax. IMPRESSION: Stable aeration. CRITICAL RESULT: No. COMMUNICATION: Per this written report. By electronically signing this report, I, the attending physician, attestthat I have personally reviewed the images/data for the aboveexamination(s) and agree with the final edited report. Drafted by Alvin Cespedes MD on 12/20/2024 9:12 AM Final report signed by Mike Sheffield MD on 12/20/2024 9:51 AM Boris Al MD IMG XR PROCEDURES Final Resu lt * (ABNORMAL) Phosphorus (12/20/2024 4:41 AM EDT) Phosphorus, Plasma 2.2(L) 2.5 - 4.5 mg/dL 12/20/2024 5:27 AM EDT [facility] Blood Venous blood specimen / Unknown Venipuncture / Unknown 12/20/2024 4:41 AM EDT 12/20/2024 4:55 AM EDT Boris Al MD LAB BLOOD ORDERABLES Final R esult [facility] [address] [place] [address] * (ABNORMAL) Magnesium (12/20/2024 4:41 AM EDT) Pathologist [facility] Magnesium, Plasma 1.8(L) 1.9 - 2.4 mg/dL 12/20/2024 5:27 AM EDT [facility] Blood Venous blood specimen / Unknown Venipuncture / Unknown 12/20/2024 4:41 AM EDT 12/20/2024 4:55 AM EDT us Boris Al MD LAB BLOOD ORDERABLES Final R esult [facility] [address] [place] [address] * (ABNORMAL) CBC (12/20/2024 4:41 AM EDT) [facility] WBC Count 9.30 3.70 - 10.30 10*3/uL LAB HEMATOLOGY METHOD 12/20/2024 5:16 AM EDT [facility] RBC Count 2.94(L) 3.90 - 5.20 10*6/uL LAB HEMATOLOGY METHOD 12/20/2024 5:16 AM EDT [facility] HGB 9.1(L) 11.2 - 15.7 g/dL LAB HEMATOLOGY METHOD 12/20/2024 5:16 AM EDT [facility] HCT 27.3(L) 34.0 - 45.0 % LAB HEMATOLOGY METHOD 12/20/2024 5:16 AM EDT [facility] Platelet Count 110(L) 155 - 369 10*3/uL LAB HEMATOLOGY METHOD 12/20/2024 5:16 AM EDT [facility] MCV 93 79 - 98 fL LAB HEMATOLOGY METHOD 12/20/2024 5:16 AM EDT [facility] MCH 31.0 26.0 - 32.0 pg LAB HEMATOLOGY METHOD 12/20/2024 5:16 AM EDT [facility] MCHC 33.3 30.7 - 35.5 g/dL LAB HEMATOLOGY METHOD 12/20/2024 5:16 AM EDT [facility] RDW 16.5(H) 11.5 - 14.5 % LAB HEMATOLOGY METHOD 12/20/2024 5:16 AM EDT [facility] MPV 12.0 8.8 - 12.5 fL LAB HEMATOLOGY METHOD 12/20/2024 5:16 AM EDT [facility] nRBC 0.0 <=0.0 per 100 WBCs LAB HEMATOLOGY METHOD 12/20/2024 5:16 AM EDT [facility] Blood Venous blood specimen / Unknown Venipuncture / Unknown 12/20/2024 4:41 AM EDT 12/20/2024 4:58 AM EDT us Boris Al MD LAB BLOOD ORDERABLES Final R esult [facility] [address] [place] [address] * (ABNORMAL) Basic metabolic panel (12/20/2024 4:41 AM EDT) Glucose, Plasma 105(H) 74 - 99 mg/dL 12/20/2024 5:27 AM EDT [facility] BUN, Plasma 17 8 - 23 mg/dL 12/20/2024 5:27 AM EDT [facility] Creatinine, Plasma 0.64 0.60 - 1.10 mg/dL 12/20/2024 5:27 AM EDT [facility] BUN/Creatinine Ratio 12/20/2024 5:27 AM EDT [facility] Sodium, Plasma 137 136 - 145 mmol/L 12/20/2024 5:27 AM EDT [facility] Potassium, Plasma 3.2(L) 3.6 - 4.9 mmol/L 12/20/2024 5:27 AM EDT [facility] Chloride, Plasma 98 97 - 107 mmol/L 12/20/2024 5:27 AM EDT [facility] CO2, Plasma 27 22 - 29 mmol/L 12/20/2024 5:27 AM EDT [facility] Anion Gap 12 6 - 16 mmol/L 12/20/2024 5:27 AM EDT [facility] Total Calcium, Plasma 8.8(L) 8.9 - 10.2 mg/dL 12/20/2024 5:27 AM EDT [facility] eGFRcr 101.3 mL/min/1.7 3m*2 12/20/2024 5:[address] [facility] Comment:Reported eGFRcr in m L/min/1.73m2 is based the CKD-EPI 2020 equation that does not use a race coefficient. Blood Venous blood specimen / Unknown Venipuncture / Unknown 12/20/2024 4:41 AM EDT 12/20/2024 4:55 AM EDT us Boris Al MD LAB BLOOD ORDERABLES Final R esult Performing Organization Address [facility] [place] [address] * (ABNORMAL) N-Terminal Probnp, Plasma (12/20/2024 4:41 AM EDT) N-Terminal, PROBNP, Plasma 4,401(H) 0 - 899 pg/mL 12/20/2024 5:[address] [facility] Blood Venous blood specimen / Unknown Venipuncture / Unknown 12/20/2024 4:41 AM EDT 12/20/2024 4:55 AM EDT us Jeannette García APRN LAB BLOOD ORDERABLES Final R esult Performing Organization Address [facility] [place] [address] * ECG Adult (12/19/2024 6:09 PM EDT) EKG DIAGNOSIS CLASS Abnormal MUSE ECG Ventricular Rate 89 BPM MUSE ECG Atrial Rate 89 BPM MUSE ECG ID Interval 168 ms MUSE ECG QRSD Interval 104 ms MUSE ECG QT Interval 394 ms MUSE ECG QTC Interval 479 ms MUSE ECG P [place] 50 degrees MUSE ECG R [place] 49 degrees MUSE ECG T Wave [place] 108 degrees MUSE ECG Diagnosis Normal sinus rhythm MUSE ECG Diagnosis Possible Inferior infarct , age undetermined MUSE ECG Diagnosis Abnormal ECG MUSE ECG Diagnosis MUSE ECG Diagnosis Confirmed by Mo Evans ([id number]) on 12/20/2024 9:39:16 AM MUSE ECG 12/19/2024 6:09 PM EDT 12/20/2024 9:39 AM EDT us Jeannette García APRN ECG ORDERABLES Final Result MUSE ECG * (ABNORMAL) POCT glucose meter (12/19/2024 5:24 PM EDT) POCT Glucose 142(H) 74 - 99 mg/dL 12/19/2024 5:27 PM EDT [facility] Comment:Accuracy of a glucos e result obtained from a capillary whole blood specimen relies upon adequate, non-compromised capillary blood flow. If the capillary glucose result is not consistent with the patient's clinical signs and symptoms, glucose testing should be repeated with either an arterial or venous sample on the glucometer or sent to the main labortory for testing. Comment 12/19/2024 5:27 PM EDT [facility] Owner/Photographer ID Meenakshi Sebastian 12/20/19 5:27 PM EDT [facility] Device ID [id number] 12/19/2024 5:27 PM EDT [facility] Specimen Type POC Capillary 12/19/2024 5:27 PM EDT [facility] Blood Capillary blood specimen / Unknown 12/19/2024 5:24 PM EDT 12/19/2024 5:27 PM EDT us Antonette Hernandez MD LAB POINT OF CARE TE ST DOCKED DEVICE UNSOLICITED RESULTS Final Result Performing Organization Address City/[facility] Co de Phone Number [facility] [address] [place] [address] * (ABNORMAL) POCT glucose meter (12/19/2024 2:24 PM EDT) POCT Glucose 140(H) 74 - 99 mg/dL 12/19/2024 2:26 PM EDT [facility] Comment:Accuracy of a glucos e result obtained from a capillary whole blood specimen relies upon adequate, non-compromised capillary blood flow. If the capillary glucose result is not consistent with the patient's clinical signs and symptoms, glucose testing should be repeated with either an arterial or venous sample on the glucometer or sent to the main labortory for testing. Comment 12/19/2024 2:26 PM EDT [facility] Owner/Photographer ID Bouchra Rees 2:26 PM EDT [facility] Device ID [id number] 12/19/2024 2:26 PM EDT [facility] Specimen Type POC Capillary 12/19/2024 2:26 PM EDT [facility] Blood Capillary blood specimen / Unknown 12/19/2024 2:24 PM EDT 12/19/2024 2:26 PM EDT us Antonette Hernandez MD LAB POINT OF CARE TE ST DOCKED DEVICE UNSOLICITED RESULTS Final Result Performing Organization Address City/[facility]/ZIP Co de Phone Number [facility] [address] [place] [address] * (ABNORMAL) POCT glucose meter (12/19/2024 8:25 AM EDT) [facility] Signature POCT Glucose 133(H) 74 - 99 mg/dL 12/19/2024 8:27 AM EDT [facility] Comment:Accuracy of a glucos e result obtained from a capillary whole blood specimen relies upon adequate, non-compromised capillary blood flow. If the capillary glucose result is not consistent with the patient's clinical signs and symptoms, glucose testing should be repeated with either an arterial or venous sample on the glucometer or sent to the main labortory for testing. Comment 12/19/2024 8:27 AM EDT [facility] Owner/Photographer ID April Burt 12/19/2024 8:27 AM EDT [facility] Device ID [id number] 12/19/2024 8:27 AM EDT [facility] Specimen Type POC Capillary 12/19/2024 8:27 AM EDT [facility] Blood Capillary blood specimen / Unknown 12/19/2024 8:25 AM EDT 12/19/2024 8:27 AM EDT us Boris Al MD LAB POINT OF CARE TE ST DOCKED DEVICE UNSOLICITED RESULTS Final Result Performing Organization Address City/[facility]/ZIP Co de Phone Number [facility] [address] [place] [address] * XR Abdomen 1 View (12/19/2024 2:34 AM EDT) Anatomical Region Laterality Modality Body Digital Radiogra phy Impressions 12/19/2024 6:28 AM EDT No radiographic features to suggest obstruction or ileus. No obvious pneumoperitoneum. CRITICAL RESULT: No. COMMUNICATION: Per this written report. Drafted by Luis Jang MD on 12/19/2024 6:26 AM Final report signed by Luis Jang MD on 12/19/2024 6:28 AM Narrative 12/19/2024 6:28 AM EDT CLINICAL INDICATION: ileus TECHNIQUE: Supine radiograph of the abdomen. COMPARISON: None. FINDINGS: Moderate colonic stool burden. Nonobstructive bowel gas pattern. No pneumoperitoneum. No abnormal intra-abdominal calcifications. Degenerative changes in the lower lumbar spine. Procedure Note Luis Jang MD - 12/19/2024 CLINICAL INDICATION: ileus TECHNIQUE: Supine radiograph of the abdomen. COMPARISON: None. FINDINGS: Moderate colonic stool burden. Nonobstructive bowel gas pattern. Nopneumoperitoneum. No abnormal intra-abdominal calcifications. Degenerativechanges in the lower lumbar spine. IMPRESSION: No radiographic features to suggest obstruction or ileus. No obviouspneumoperitoneum. CRITICAL RESULT: No. COMMUNICATION: Per this written report. Drafted by Luis Jang MD on 12/19/2024 6:26 AM Final report signed by Luis Jang MD on 12/19/2024 6:28 AM Shazia Newman ASSISTANT EXECUTIVE HOUSEKEEPER IMG XR PROCEDURES Final Res ult * XR Chest 1 View (12/19/2024 2:34 AM EDT) Anatomical Region Laterality Modality Chest Digital Radiogra phy Impressions 12/19/2024 9:03 AM EDT Stable exam, except for support hardware changes. CRITICAL RESULT: No. COMMUNICATION: Per this written report. By electronically signing this report, I, the attending physician, attest that I have personally reviewed the images/data for the above examination(s) and agree with the final edited report. Drafted by Rafaela Loyola MD on 12/19/2024 8:21 AM Final report signed by Boris Villasenor MD on 12/19/2024 9:03 AM Narrative 12/19/2024 9:03 AM EDT CLINICAL INDICATION: Post-Op Cardiac Surgery TECHNIQUE: XR CHEST 1 VIEW COMPARISON: Chest radiograph December 18, 2024 FINDINGS: Interval removal of right IJ pulmonary artery catheter. Remaining support hardware in stable position. Median sternotomy wires intact. Similar appearing right perihilar and basilar opacities, likely atelectasis. Stable small right-sided effusion. No pneumothorax. Procedure Note Boris Villasenor MD - 12/19/2024 CLINICAL INDICATION: Post-Op Cardiac Surgery TECHNIQUE: XR CHEST 1 VIEW COMPARISON: Chest radiograph December 18, 2024 FINDINGS: Interval removal of right IJ pulmonary artery catheter. Remaining supporthardware in stable position. Median sternotomy wires intact. Similarappearing right perihilar and basilar opacities, likely atelectasis.Stable small right-sided effusion. No pneumothorax. IMPRESSION: Stable exam, except for support hardware changes. CRITICAL RESULT: No. COMMUNICATION: Per this written report. By electronically signing this report, I, the attending physician, attestthat I have personally reviewed the images/data for the aboveexamination(s) and agree with the final edited report. Drafted by Rafaela Loyola MD on 12/19/2024 8:21 AM Final report signed by Boris Villasenor MD on 12/19/2024 9:03 AM us Boris Al MD IMG XR PROCEDURES Final Resu lt * (ABNORMAL) N-Terminal Probnp, Plasma (12/19/2024 1:26 AM EDT) N-Terminal, PROBNP, Plasma 8,396(H) 0 - 899 pg/mL 12/19/2024 1:59 PM EDT [facility] Blood Venous blood specimen / Unknown Venipuncture / Unknown 12/19/2024 1:26 AM EDT 12/19/2024 1:35 AM EDT us Jeannette García ASSISTANT EXECUTIVE HOUSEKEEPER LAB BLOOD ORDERABLES Final R esult [facility] [address] [place] [address] * (ABNORMAL) Lipid panel (12/19/2024 1:26 AM EDT) Cholesterol, Plasma 96 <200 mg/dL 12/19/2024 1:59 PM EDT [facility] Comment: Cholesterol Reference Range (age >17 years): Desirable <200 mg/dL Borderline 200 to 239 mg/dL Undesirable >239 mg/dL HDL 43(L) >=50 mg/dL 12/19/2024 1:59 PM EDT [facility] Comment: HDL Cholesterol Reference Ranges (age >17 years): Female, acceptable > or = 50 mg/dL Male, acceptable > or = 40 mg/dL Triglycerides, Plasma 105 <150 mg/dL 12/19/2024 1:59 PM EDT [facility] Comment: Triglyceride Reference Range (age >17 years): Desirable: <150 mg/dL Borderline high: 150 to 199 mg/dL High: 200 to 499 mg/dL Very high: >499 mg/dL Increased risk of pancreatitis: >1000 mg/dL Cholesterol/HDL Ratio 2 12/19/2024 1:59 PM EDT [facility] LDL, Calculated 33 <100 mg/dL 1:59 PM EDT [facility] Comment: LDL Cholesterol Reference Range (age >17 years): Optimal: <100 mg/dL Near or above optimal: 100 - 129 mg/dL Borderline high: 130 - 159 mg/dL High: 160 - 189 mg/dL Very high: >189 mg/dL LDL Cholesterol Reference Range (age <18 years): Desirable: <110 mg/dL Borderline: 110 - 129 mg/dL Undesirable: >130 mg/dL LDL Cholesterol is calculated using the Manjarrez/NIH equation. Fasting greater than or equal to 12 hours? Unknown 12/19/2024 1:59 PM EDT [facility] Blood Venous blood specimen / Unknown Venipuncture / Unknown 12/19/2024 1:26 AM EDT 12/19/2024 1:35 AM EDT us Jeannette García APRN LAB BLOOD ORDERABLES Final R esult Performing Organization Address City/[facility]/ZIP Co de Phone Number [facility] [address] [place] [address] * Phosphorus (12/19/2024 1:26 AM EDT) Phosphorus, Plasma 3.4 2.5 - 4.5 mg/dL 12/19/2024 2:18 AM EDT [facility] Blood Venous blood specimen / Unknown Venipuncture / Unknown 12/19/2024 1:26 AM EDT 12/19/2024 1:35 AM EDT Boris Al MD LAB BLOOD ORDERABLES Final R esult Performing Organization Address [facility] Co de Phone Number [facility] [address] [place] [address] * (ABNORMAL) Magnesium (12/19/2024 1:26 AM EDT) Magnesium, Plasma 2.5(H) 1.9 - 2.4 mg/dL 12/19/2024 2:18 AM EDT [facility] Blood Venous blood specimen / Unknown Venipuncture / Unknown 12/19/2024 1:26 AM EDT 12/19/2024 1:35 AM EDT us Boris Al MD LAB BLOOD ORDERABLES Final R esult Performing Organization Address [facility] Co de Phone Number [facility] [address] [place] [address] * (ABNORMAL) CBC (12/19/2024 1:26 AM EDT) WBC Count 13.36(H) 3.70 - 10.30 10*3/uL LAB HEMATOLOGY METHOD 12/19/2024 1:45 AM EDT [facility] RBC Count 3.12(L) 3.90 - 5.20 10*6/uL LAB HEMATOLOGY METHOD 12/19/2024 1:45 AM EDT [facility] HGB 9.8(L) 11.2 - 15.7 g/dL LAB HEMATOLOGY METHOD 12/19/2024 1:45 AM EDT [facility] HCT 28.7(L) 34.0 - 45.0 % LAB HEMATOLOGY METHOD 12/19/2024 1:45 AM EDT [facility] Platelet Count 111(L) 155 - 369 10*3/uL LAB HEMATOLOGY METHOD 12/19/2024 1:45 AM EDT [facility] MCV 92 79 - 98 fL LAB HEMATOLOGY METHOD 12/19/2024 1:45 AM EDT [facility] MCH 31.4 26.0 - 32.0 pg LAB HEMATOLOGY METHOD 12/19/2024 1:45 AM EDT [facility] MCHC 34.1 30.7 - 35.5 g/dL LAB HEMATOLOGY METHOD 12/19/2024 1:45 AM EDT [facility] RDW 18.2(H) 11.5 - 14.5 % LAB HEMATOLOGY METHOD 12/19/2024 1:45 AM EDT [facility] MPV 11.7 8.8 - 12.5 fL LAB HEMATOLOGY METHOD 12/19/2024 1:45 AM EDT [facility] nRBC 0.0 <=0.0 per 100 WBCs LAB HEMATOLOGY METHOD 12/19/2024 1:45 AM EDT [facility] Blood Venous blood specimen / Unknown Venipuncture / Unknown 12/19/2024 1:26 AM EDT 12/19/2024 1:34 AM EDT us Boris Al MD LAB BLOOD ORDERABLES Final R esult [facility] [address] [place] [address] * (ABNORMAL) Basic metabolic panel (12/19/2024 1:26 AM EDT) Glucose, Plasma 132(H) 74 - 99 mg/dL 12/19/2024 2:18 AM EDT [facility] BUN, Plasma 15 8 - 23 mg/dL 12/19/2024 2:18 AM EDT [facility] Creatinine, Plasma 0.71 0.60 - 1.10 mg/dL 12/19/2024 2:18 AM EDT [facility] BUN/Creatinine Ratio 21 12/19/2024 2:18 AM EDT [facility] Sodium, Plasma 140 136 - 145 mmol/L 12/19/2024 2:18 AM EDT [facility] Potassium, Plasma 4.2 3.6 - 4.9 mmol/L 12/19/2024 2:18 AM EDT [facility] Chloride, Plasma 106 97 - 107 mmol/L 12/19/2024 2:18 AM EDT [facility] CO2, Plasma 26 22 - 29 mmol/L 12/19/2024 2:18 AM EDT [facility] Anion Gap 8 6 - 16 mmol/L 12/19/2024 2:18 AM EDT [facility] Total Calcium, Plasma 8.4(L) 8.9 - 10.2 mg/dL 12/19/2024 2:18 AM EDT [facility] eGFRcr 97.5 mL/min/1.7 3m*2 12/19/2024 2:18 AM EDT [facility] Comment:Reported eGFRcr in m L/min/1.73m2 is based the CKD-EPI 2020 equation that does not use a race coefficient. Blood Venous blood specimen / Unknown Venipuncture / Unknown 12/19/2024 1:26 AM EDT 12/19/2024 1:35 AM EDT us Boris Al MD LAB BLOOD ORDERABLES Final R esult [facility] [address] [place] [address] * (ABNORMAL) POCT glucose meter (12/18/2024 10:27 PM EDT) POCT Glucose 142(H) 74 - 99 mg/dL 12/18/2024 10:28 PM EDT [facility] Comment:Accuracy of a glucos e result obtained from a capillary whole blood specimen relies upon adequate, non-compromised capillary blood flow. If the capillary glucose result is not consistent with the patient's clinical signs and symptoms, glucose testing should be repeated with either an arterial or venous sample on the glucometer or sent to the main labortory for testing. Comment 12/18/2024 10:28 PM EDT [facility] Owner/Photographer ID Lela Khan 12/19/19 10:28 PM EDT [facility] Device ID [id number] 12/18/2024 10:28 PM EDT [facility] Specimen Type POC Capillary 12/18/2024 10:28 PM EDT [facility] Blood Capillary blood specimen / Unknown 12/18/2024 10:27 PM EDT 12/18/2024 10:28 PM EDT us Boris Al MD LAB POINT OF CARE TE ST DOCKED DEVICE UNSOLICITED RESULTS Final Result Performing Organization Address City/[facility]/ZIP Co de Phone Number [facility] [address] [place] [address] * (ABNORMAL) POCT glucose meter (12/18/2024 6:23 PM EDT) POCT Glucose 148(H) 74 - 99 mg/dL 12/18/2024 6:25 PM EDT [facility] Comment:Accuracy of a glucos e result obtained from a capillary whole blood specimen relies upon adequate, non-compromised capillary blood flow. If the capillary glucose result is not consistent with the patient's clinical signs and symptoms, glucose testing should be repeated with either an arterial or venous sample on the glucometer or sent to the main labortory for testing. Comment 12/18/2024 6:25 PM EDT [facility] Owner/Photographer ID Sunny Swanson 12/18/2024 6:25 PM EDT [facility] Device ID [id number] 12/18/2024 6:25 PM EDT [facility] Specimen Type POC Capillary 12/18/2024 6:25 PM EDT [facility] Blood Capillary blood specimen / Unknown 12/18/2024 6:23 PM EDT 12/18/2024 6:25 PM EDT us Boris Al MD LAB POINT OF CARE TE ST DOCKED DEVICE UNSOLICITED RESULTS Final Result Performing Organization Address City/[facility]/ZIP Co de Phone Number [facility] [address] [place] [address] * (ABNORMAL) POCT glucose meter (12/18/2024 1:18 PM EDT) [facility] POCT Glucose 140(H) 74 - 99 mg/dL 12/18/2024 1:20 PM EDT [facility] Comment:Accuracy of a glucos e result obtained from a capillary whole blood specimen relies upon adequate, non-compromised capillary blood flow. If the capillary glucose result is not consistent with the patient's clinical signs and symptoms, glucose testing should be repeated with either an arterial or venous sample on the glucometer or sent to the main labortory for testing. Comment 12/18/2024 1:20 PM EDT [facility] Owner/Photographer ID Bouchra Rees 1:20 PM EDT [facility] Device ID [id number] 12/18/2024 1:20 PM EDT [facility] Specimen Type POC Capillary 12/18/2024 1:20 PM EDT [facility] Blood Capillary blood specimen / Unknown 12/18/2024 1:18 PM EDT 12/18/2024 1:20 PM EDT Boris Al MD LAB POINT OF CARE TE ST DOCKED DEVICE UNSOLICITED RESULTS Final Result Performing Organization Address City/State/[facility] Co de Phone Number [facility] [address] [place] [address] * (ABNORMAL) POCT glucose meter (12/18/2024 9:50 AM EDT) [facility] POCT Glucose 152(H) 74 - 99 mg/dL 12/18/2024 9:51 AM EDT [facility] Comment:Accuracy of a glucos e result obtained from a capillary whole blood specimen relies upon adequate, non-compromised capillary blood flow. If the capillary glucose result is not consistent with the patient's clinical signs and symptoms, glucose testing should be repeated with either an arterial or venous sample on the glucometer or sent to the main labortory for testing. Comment 12/18/2024 9:51 AM EDT [facility] Owner/Photographer ID Bouchra Rees 9:51 AM EDT [facility] Device ID [id number] 12/18/2024 9:51 AM EDT [facility] Specimen Type POC Arterial 12/18/2024 9:51 AM EDT [facility] Blood Arterial blood specimen / Unknown 12/18/2024 9:50 AM EDT 12/18/2024 9:51 AM EDT us Boris Al MD LAB POINT OF CARE TE ST DOCKED DEVICE UNSOLICITED RESULTS Final Result Performing Organization Address [facility]/ZIP Co de Phone Number [facility] [address] [place] [address] * (ABNORMAL) Magnesium, Plasma (12/18/2024 9:50 AM EDT) Magnesium, Plasma 3.0(H) 1.9 - 2.4 mg/dL 12/18/2024 10:43 AM EDT [facility] Blood Arterial blood specimen / Unknown Venipuncture / Unknown 12/18/2024 9:50 AM EDT 12/18/2024 10:12 AM EDT us Shazia Newman APRN LAB BLOOD ORDERABLES Final Result Performing Organization Address City/[facility]/ZIP Co de Phone Number [facility] [address] [place] [address] * (ABNORMAL) Renal Function Panel, Plasma (12/18/2024 9:50 AM EDT) Glucose, Plasma 148(H) 74 - 99 mg/dL 12/18/2024 10:43 AM EDT [facility] BUN, Plasma 20 8 - 23 mg/dL 12/18/2024 10:43 AM EDT [facility] Creatinine, Plasma 0.94 0.60 - 1.10 mg/dL 12/18/2024 10:43 AM EDT [facility] BUN/Creatinine Ratio 21 12/18/2024 10:43 AM EDT [facility] Sodium, Plasma 138 136 - 145 mmol/L 12/18/2024 10:43 AM EDT [facility] Potassium, Plasma 4.3 3.6 - 4.9 mmol/L 12/18/2024 10:43 AM EDT [facility] Chloride, Plasma 104 97 - 107 mmol/L 12/18/2024 10:43 AM EDT [facility] CO2, Plasma 21(L) 22 - 29 mmol/L 12/18/2024 10:43 AM EDT [facility] Anion Gap 13 6 - 16 mmol/L 12/18/2024 10:43 AM EDT [facility] Total Calcium, Plasma 7.8(L) 8.9 - 10.2 mg/dL 12/18/2024 10:43 AM EDT [facility] Phosphorus, Plasma 5.3(H) 2.5 - 4.5 mg/dL 12/18/2024 10:43 AM EDT [facility] Albumin, Plasma 3.8 3.5 - 5.2 g/dL 12/18/2024 10:43 AM EDT [facility] eGFRcr 69.6 mL/min/1.7 3m*2 12/18/2024 10:43 AM EDT [facility] Comment:Reported eGFRcr in m L/min/1.73m2 is based the CKD-EPI 2020 equation that does not use a race coefficient. Blood Arterial blood specimen / Unknown Venipuncture / Unknown 12/18/2024 9:50 AM EDT 12/18/2024 10:12 AM EDT Shazia Newman APRN LAB BLOOD ORDERABLES Final Result [facility] [address] [place] [address] * (ABNORMAL) POCT glucose meter (12/18/2024 6:27 AM EDT) POCT Glucose 174(H) 74 - 99 mg/dL 12/18/2024 6:28 AM EDT [facility] Comment:Accuracy of a glucos e result obtained from a capillary whole blood specimen relies upon adequate, non-compromised capillary blood flow. If the capillary glucose result is not consistent with the patient's clinical signs and symptoms, glucose testing should be repeated with either an arterial or venous sample on the glucometer or sent to the main labortory for testing. Comment 12/18/2024 6:28 AM EDT [facility] Owner/Photographer ID April Morris 12/18/2024 6:28 AM EDT [facility] Device ID [id number] 12/18/2024 6:28 AM EDT [facility] Specimen Type POC Arterial 12/18/2024 6:28 AM EDT [facility] Blood Arterial blood specimen / Unknown 12/18/2024 6:27 AM EDT 12/18/2024 6:28 AM EDT Boris Al MD LAB POINT OF CARE TE ST DOCKED DEVICE UNSOLICITED RESULTS Final Result Performing Organization Address [facility] de Phone Number [facility] [address] [place] [address] * ECG Adult - POD 1 (12/18/2024 3:51 AM EDT) EKG DIAGNOSIS CLASS Normal MUSE ECG Ventricular Rate 96 BPM MUSE ECG Atrial Rate 96 BPM MUSE ECG ID Interval 146 ms MUSE ECG QRSD Interval 92 ms MUSE ECG QT Interval 398 ms MUSE ECG QTC Interval 502 ms MUSE ECG P [place] 32 degrees MUSE ECG R [place] 18 degrees MUSE ECG T Wave [place] 37 degrees MUSE ECG Diagnosis Poor data quality, interpretation may be adversely affected MUSE ECG Diagnosis Normal sinus rhythm MUSE ECG Diagnosis Normal ECG MUSE ECG Diagnosis MUSE ECG Diagnosis Confirmed by Harpreet Gresham ([id number]) on 12/18/2024 3:52:14 PM MUSE ECG 12/18/2024 3:51 AM EDT 12/18/2024 3:52 PM EDT Boris Al MD ECG ORDERABLES Final Result Performing Organization Address [facility] Co de Phone Number [facility] ECG * XR Chest 1 View (12/18/2024 2:57 AM EDT) Anatomical Region Laterality Modality Chest Digital Radiogra phy Impressions 12/18/2024 9:48 AM EDT Interval removal of endotracheal tube and enteric tube. Otherwise, stable exam. CRITICAL RESULT: No. COMMUNICATION: Per this written report. By electronically signing this report, I, the attending physician, attest that I have personally reviewed the images/data for the above examination(s) and agree with the final edited report. Drafted by Rafaela Loyola MD on 12/18/2024 8:07 AM Final report signed by Tiago Miranda MD on 12/18/2024 9:48 AM Narrative 12/18/2024 9:48 AM EDT CLINICAL INDICATION: Post-Op Cardiac Surgery TECHNIQUE: XR CHEST 1 VIEW COMPARISON: Chest radiograph December 17, 2024 FINDINGS: Median sternotomy wires intact. Interval removal of endotracheal tube and enteric tube. Additional support hardware remains in stable position. Cardiac silhouette and mediastinal contours are stable. No consolidation. Similar-appearing small right pleural effusion. No pneumothorax. Redemonstration of right basilar atelectasis. Procedure Note Tiago Miranda MD - 12/18/2024 CLINICAL INDICATION: Post-Op Cardiac Surgery TECHNIQUE: XR CHEST 1 VIEW COMPARISON: Chest radiograph December 17, 2024 FINDINGS: Median sternotomy wires intact. Interval removal of endotracheal tube andenteric tube. Additional support hardware remains in stable position.Cardiac silhouette and mediastinal contours are stable. No consolidation.Similar-appearing small right pleural effusion. No pneumothorax.Redemonstration of right basilar atelectasis. IMPRESSION: Interval removal of endotracheal tube and enteric tube. Otherwise, stableexam. CRITICAL RESULT: No. COMMUNICATION: Per this written report. By electronically signing this report, I, the attending physician, chanaat I have personally reviewed the images/data for the aboveexamination(s) and agree with the final edited report. Drafted by Rafaela Loyola MD on 12/18/2024 8:07 AM Final report signed by Tiago Miranda MD on 12/18/2024 9:48 AM us Boris Al MD IMG XR PROCEDURES Final Resu lt * (ABNORMAL) Phosphorus (12/18/2024 12:42 AM EDT) Phosphorus, Plasma 6.0(H) 2.5 - 4.5 mg/dL 12/18/2024 1:24 AM EDT [facility] Blood Venous blood specimen / Unknown Venipuncture / Unknown 12/18/2024 12:42 AM EDT 12/18/2024 12:48 AM EDT us Boris lA MD LAB BLOOD ORDERABLES Final R esult Performing Organization Address City/[facility]/ZIP Co de Phone Number [facility] [address] [place] [address] * (ABNORMAL) Magnesium (12/18/2024 12:42 AM EDT) Pathologist [facility] Magnesium, Plasma 3.3(H) 1.9 - 2.4 mg/dL 12/18/2024 1:24 AM EDT [facility] Blood Venous blood specimen / Unknown Venipuncture / Unknown 12/18/2024 12:42 AM EDT 12/18/2024 12:48 AM EDT us Boris Al MD LAB BLOOD ORDERABLES Final R esult Performing Organization Address City/[facility]/ZIP Co de Phone Number [facility] [address] [place] [address] * (ABNORMAL) CBC (12/18/2024 12:42 AM EDT) [facility] WBC Count 13.44(H) 3.70 - 10.30 10*3/uL LAB HEMATOLOGY METHOD 12/18/2024 12:58 AM EDT [facility] RBC Count 3.38(L) 3.90 - 5.20 10*6/uL LAB HEMATOLOGY METHOD 12/18/2024 12:58 AM EDT [facility] HGB 10.6(L) 11.2 - 15.7 g/dL LAB HEMATOLOGY METHOD 12/18/2024 12:58 AM EDT [facility] HCT 30.9(L) 34.0 - 45.0 % LAB HEMATOLOGY METHOD 12/18/2024 12:58 AM EDT [facility] Platelet Count 134(L) 155 - 369 10*3/uL LAB HEMATOLOGY METHOD 12/18/2024 12:58 AM EDT [facility] MCV 91 79 - 98 fL LAB HEMATOLOGY METHOD 12/18/2024 12:58 AM EDT [facility] MCH 31.4 26.0 - 32.0 pg LAB HEMATOLOGY METHOD 12/18/2024 12:58 AM EDT [facility] MCHC 34.3 30.7 - 35.5 g/dL LAB HEMATOLOGY METHOD 12/18/2024 12:58 AM EDT [facility] RDW 19.1(H) 11.5 - 14.5 % LAB HEMATOLOGY METHOD 12/18/2024 12:58 AM EDT [facility] MPV 11.4 8.8 - 12.5 fL LAB HEMATOLOGY METHOD 12/18/2024 12:58 AM EDT [facility] nRBC 0.0 <=0.0 per 100 WBCs LAB HEMATOLOGY METHOD 12/18/2024 12:58 AM EDT [facility] Blood Venous blood specimen / Unknown Venipuncture / Unknown 12/18/2024 12:42 AM EDT 12/18/2024 12:48 AM EDT us Boris Al MD LAB BLOOD ORDERABLES Final R esult [facility] [address] [place] [address] * (ABNORMAL) Basic metabolic panel (12/18/2024 12:42 AM EDT) Glucose, Plasma 182(H) 74 - 99 mg/dL 12/18/2024 1:24 AM EDT [facility] BUN, Plasma 18 8 - 23 mg/dL 12/18/2024 1:24 AM EDT [facility] Creatinine, Plasma 0.87 0.60 - 1.10 mg/dL 12/18/2024 1:24 AM EDT [facility] BUN/Creatinine Ratio 12/18/2024 1:24 AM EDT [facility] Sodium, Plasma 142 136 - 145 mmol/L 12/18/2024 1:24 AM EDT [facility] Potassium, Plasma 4.1 3.6 - 4.9 mmol/L 12/18/2024 1:24 AM EDT [facility] Chloride, Plasma 107 97 - 107 mmol/L 12/18/2024 1:24 AM EDT [facility] CO2, Plasma 21(L) 22 - 29 mmol/L 12/18/2024 1:24 AM EDT [facility] Anion Gap 14 6 - 16 mmol/L 12/18/2024 1:24 AM EDT [facility] Total Calcium, Plasma 7.7(L) 8.9 - 10.2 mg/dL 12/18/2024 1:24 AM EDT [facility] eGFRcr 76.4 mL/min/1.7 3m*2 12/18/2024 1:24 AM EDT [facility] Comment:Reported eGFRcr in m L/min/1.73m2 is based the CKD-EPI 2020 equation that does not use a race coefficient. Blood Venous blood specimen / Unknown Venipuncture / Unknown 12/18/2024 12:42 AM EDT 12/18/2024 12:48 AM EDT Boris Al MD LAB BLOOD ORDERABLES Final R esult Performing Organization Address [facility] de Phone Number [facility] [address] [place] [address] * Potassium, Plasma (12/18/2024 12:42 AM EDT) Potassium, Plasma 4.1 3.6 - 4.9 mmol/L 12/18/2024 1:24 AM EDT [facility] Blood Venous blood specimen / Unknown Venipuncture / Unknown 12/18/2024 12:42 AM EDT 12/18/2024 12:48 AM EDT Boris Al MD LAB BLOOD ORDERABLES Final R esult Performing Organization Address City/[facility]/ZIP Co de Phone Number [facility] [address] [place] [address] * (ABNORMAL) Hematocrit (12/18/2024 12:42 AM EDT) HCT 30.9(L) 34.0 - 45.0 % LAB HEMATOLOGY METHOD 12/18/2024 12:58 AM EDT [facility] Blood Venous blood specimen / Unknown Venipuncture / Unknown 12/18/2024 12:42 AM EDT 12/18/2024 12:48 AM EDT Boris Al MD LAB BLOOD ORDERABLES Final R esult Performing Organization Address City/[facility]/ZIP Co de Phone Number [facility] [address] [place] [address] * (ABNORMAL) Hemoglobin (12/18/2024 12:42 AM EDT) [facility] HGB 10.6(L) 11.2 - 15.7 g/dL LAB HEMATOLOGY METHOD 12/18/2024 12:58 AM EDT [facility] Blood Venous blood specimen / Unknown Venipuncture / Unknown 12/18/2024 12:42 AM EDT 12/18/2024 12:48 AM EDT Boris Al MD LAB BLOOD ORDERABLES Final R esult Performing Organization Address [facility] de Phone Number [facility] [address] [place] [address] * (ABNORMAL) POCT glucose meter (12/18/2024 12:41 AM EDT) [facility] POCT Glucose 195(H) 74 - 99 mg/dL 12/18/2024 12:42 AM EDT [facility] Comment:Accuracy of a glucos e result obtained from a capillary whole blood specimen relies upon adequate, non-compromised capillary blood flow. If the capillary glucose result is not consistent with the patient's clinical signs and symptoms, glucose testing should be repeated with either an arterial or venous sample on the glucometer or sent to the main labortory for testing. Comment 12/18/2024 12:42 AM EDT [facility] Owner/Photographer ID April Morris 12/18/2024 12:42 AM EDT [facility] LAB Device ID [id number] 12/18/2024 12:42 AM EDT [facility] Specimen Type POC Arterial 12/18/2024 12:42 AM EDT [facility] Blood Arterial blood specimen / Unknown 12/18/2024 12:41 AM EDT 12/18/2024 12:42 AM EDT Boris Al MD LAB POINT OF CARE TE ST DOCKED DEVICE UNSOLICITED RESULTS Final Result [facility] [address] [place] [address] * (ABNORMAL) Blood gas, arterial (12/18/2024 12:41 AM EDT) pH, Arterial 7.33 7.31 - 7.42 LAB HEMATOLOGY METHOD 12/18/2024 1:21 AM EDT [facility] pCO2, Arterial 43 35 - 48 mmHg LAB HEMATOLOGY METHOD 12/18/2024 1:21 AM EDT [facility] pO2, Arterial 107 >80 mmHg LAB HEMATOLOGY METHOD 12/18/2024 1:21 AM EDT [facility] SO2, Measured, Arterial 98 94 - 98 % LAB HEMATOLOGY METHOD 12/18/2024 1:21 AM EDT [facility] Base Excess, Arterial -3.6(L) -2.0 - 3.0 mmol/L LAB HEMATOLOGY METHOD 12/18/2024 1:21 AM EDT [facility] Bicarbonate, Calculated, Arterial 22 22 - 26 mmol/L LAB HEMATOLOGY METHOD 12/18/2024 1:21 AM EDT [facility] Hematocrit, Whole Blood 33.0(L) 34.0 - 45.0 % LAB HEMATOLOGY METHOD 12/18/2024 1:21 AM EDT [facility] Sodium, Whole Blood 140 136 - 145 mmol/L LAB HEMATOLOGY METHOD 12/18/2024 1:21 AM EDT [facility] Potassium, Whole Blood 4.0 3.6 - 4.9 mmol/L LAB HEMATOLOGY METHOD 12/18/2024 1:21 AM EDT [facility] Chloride, Whole Blood 109(H) 97 - 107 mmol/L LAB HEMATOLOGY METHOD 12/18/2024 1:21 AM EDT [facility] Glucose, Whole Blood 182(H) 74 - 99 mg/dL LAB HEMATOLOGY METHOD 12/18/2024 1:21 AM EDT [facility] Ionized Calcium, Whole Blood 3.9(L) 4.6 - 5.1 mg/dL LAB HEMATOLOGY METHOD 12/18/2024 1:21 AM EDT [facility] Lactate, Arterial, Whole Blood 2.9(H) 0.5 - 1.6 mmol/L LAB HEMATOLOGY METHOD 12/18/2024 1:21 AM EDT [facility] Blood Arterial blood specimen / Unknown Arterial Puncture / Unknown 12/18/2024 12:41 AM EDT 12/18/2024 1:20 AM EDT us Boris Al MD LAB BLOOD ORDERABLES Final R esult [facility] [address] [place] [address] * ID CRITICAL CARE, ADDL 30 MIN (12/17/2024 11:16 PM EDT) Narrative Shazia Newman APRN - 12/17/2024 11:16 PM EDT Shazia Newman APRN 12/17/2024 11:30 PM Critical Care Performed by: Shazia Newman APRN Authorized by: Shazia Newman APRN Critical care provider statement: Critical care time (minutes): 30 Critical care time was exclusive of: Separately billable procedures and treating other patients Critical care was time spent personally by me on the following activities: Development of treatment plan with patient or surrogate, ordering and performing treatments and interventions, ordering and review of laboratory studies, ordering and review of radiographic studies, obtaining history from patient or surrogate, examination of patient, evaluation of patient's response to treatment, discussions with consultants, discussions with primary provider and review of old charts I assumed subsequent critical care for this patient from a provider in my division, on the same day: yes Comments: The patient is critically ill with: post op CABG, chest tubes, pacing wires, cardiac volume overload. They require complex decision making. The patient was seen on rounds with critical care physician, Dr. Mallory and they are in agreement with the plan of care. Pharmacy, respiratory and nursing services were present on rounds. us Shazia Newman APRN IN CLINIC/BEDSIDE ORDERABLE S Final Result * Potassium, Plasma (12/17/2024 8:07 PM EDT) Potassium, Plasma 3.9 3.6 - 4.9 mmol/L 12/17/2024 9:07 PM EDT [facility] Blood Venous blood specimen / Unknown Venipuncture / Unknown 12/17/2024 8:07 PM EDT 12/17/2024 8:43 PM EDT Boris Al MD LAB BLOOD ORDERABLES Final R esult Performing Organization Address [facility]/ZIP Co de Phone Number [facility] [address] [place] [address] * (ABNORMAL) Hematocrit (12/17/2024 8:07 PM EDT) HCT 29.5(L) 34.0 - 45.0 % LAB HEMATOLOGY METHOD 12/17/2024 8:50 PM EDT [facility] Blood Venous blood specimen / Unknown Venipuncture / Unknown 12/17/2024 8:07 PM EDT 12/17/2024 8:43 PM EDT Boris Al MD LAB BLOOD ORDERABLES Final R esult Performing Organization Address [facility] Co de Phone Number [facility] [address] [place] [address] * (ABNORMAL) Hemoglobin (12/17/2024 8:07 PM EDT) [facility] HGB 10.2(L) 11.2 - 15.7 g/dL LAB HEMATOLOGY METHOD 12/17/2024 8:50 PM EDT [facility] Blood Venous blood specimen / Unknown Venipuncture / Unknown 12/17/2024 8:07 PM EDT 12/17/2024 8:43 PM EDT Boris Al MD LAB BLOOD ORDERABLES Final R esult Performing Organization Address [facility] Co de Phone Number [facility] [address] [place] [address] * (ABNORMAL) Blood gas, arterial (12/17/2024 8:07 PM EDT) pH, Arterial 7.30(L) 7.31 - 7.42 LAB HEMATOLOGY METHOD 12/17/2024 8:46 PM EDT [facility] pCO2, Arterial 46 35 - 48 mmHg LAB HEMATOLOGY METHOD 12/17/2024 8:46 PM EDT [facility] pO2, Arterial 149 >80 mmHg LAB HEMATOLOGY METHOD 12/17/2024 8:46 PM EDT [facility] SO2, Measured, Arterial 99(H) 94 - 98 % LAB HEMATOLOGY METHOD 12/17/2024 8:46 PM EDT [facility] Base Excess, Arterial -3.8(L) -2.0 - 3.0 mmol/L LAB HEMATOLOGY METHOD 12/17/2024 8:46 PM EDT [facility] Bicarbonate, Calculated, Arterial 23 22 - 26 mmol/L LAB HEMATOLOGY METHOD 12/17/2024 8:46 PM EDT [facility] Hematocrit, Whole Blood 31.6(L) 34.0 - 45.0 % LAB HEMATOLOGY METHOD 12/17/2024 8:46 PM EDT [facility] Sodium, Whole Blood 145 136 - 145 mmol/L LAB HEMATOLOGY METHOD 12/17/2024 8:46 PM EDT [facility] Potassium, Whole Blood 3.7 3.6 - 4.9 mmol/L LAB HEMATOLOGY METHOD 12/17/2024 8:46 PM EDT [facility] Chloride, Whole Blood 114(H) 97 - 107 mmol/L LAB HEMATOLOGY METHOD 12/17/2024 8:46 PM EDT [facility] Glucose, Whole Blood 203(H) 74 - 99 mg/dL LAB HEMATOLOGY METHOD 12/17/2024 8:46 PM EDT [facility] Ionized Calcium, Whole Blood 3.8(L) 4.6 - 5.1 mg/dL LAB HEMATOLOGY METHOD 12/17/2024 8:46 PM EDT [facility] Lactate, Arterial, Whole Blood 2.0(H) 0.5 - 1.6 mmol/L LAB HEMATOLOGY METHOD 12/17/2024 8:46 PM EDT [facility] Blood Arterial blood specimen / Unknown Arterial Puncture / Unknown 12/17/2024 8:07 PM EDT 12/17/2024 8:44 PM EDT us Boris Al MD LAB BLOOD ORDERABLES Final R esult [facility] [address] [place] [address] * Potassium, Plasma (12/17/2024 6:43 PM EDT) Potassium, Plasma 3.9 3.6 - 4.9 mmol/L 12/17/2024 7:16 PM EDT [facility] Blood Venous blood specimen / Unknown Venipuncture / Unknown 12/17/2024 6:43 PM EDT 12/17/2024 6:52 PM EDT us Boris Al MD LAB BLOOD ORDERABLES [place] [address] * (ABNORMAL) Hematocrit (12/17/2024 6:43 PM EDT) HCT 29.2(L) 34.0 - 45.0 % LAB HEMATOLOGY METHOD 12/17/2024 7:21 PM EDT [facility] Blood Venous blood specimen / Unknown Venipuncture / Unknown 12/17/2024 6:43 PM EDT 12/17/2024 7:01 PM EDT us Boris Al MD LAB BLOOD ORDERABLES Final R esult [facility] [address] [place] [id number] * (ABNORMAL) Hemoglobin (12/17/2024 6:43 PM EDT) HGB 10.2(L) 11.2 - 15.7 g/dL LAB HEMATOLOGY METHOD 12/17/2024 7:21 PM EDT [facility] Blood Venous blood specimen / Unknown Venipuncture / Unknown 12/17/2024 6:43 PM EDT 12/17/2024 7:01 PM EDT us Boris Al MD LAB BLOOD ORDERABLES Final R esult [facility] [address] [place] [address], [place] [address] * (ABNORMAL) Blood gas, arterial (12/17/2024 6:43 PM EDT) pH, Arterial 7.31 7.31 - 7.42 LAB HEMATOLOGY METHOD 12/17/2024 6:54 PM EDT [facility] pCO2, Arterial 48 35 - 48 mmHg LAB HEMATOLOGY METHOD 12/17/2024 6:54 PM EDT [facility] pO2, Arterial 170 >80 mmHg LAB HEMATOLOGY METHOD 12/17/2024 6:54 PM EDT [facility] SO2, Measured, Arterial 100(H) 94 - 98 % LAB HEMATOLOGY METHOD 12/17/2024 6:54 PM EDT [facility] Base Excess, Arterial -2.7(L) -2.0 - 3.0 mmol/L LAB HEMATOLOGY METHOD 12/17/2024 6:54 PM EDT [facility] Bicarbonate, Calculated, Arterial 24 22 - 26 mmol/L LAB HEMATOLOGY METHOD 12/17/2024 6:54 PM EDT [facility] Hematocrit, Whole Blood 31.6(L) 34.0 - 45.0 % LAB HEMATOLOGY METHOD 12/17/2024 6:54 PM EDT [facility] Sodium, Whole Blood 145 136 - 145 mmol/L LAB HEMATOLOGY METHOD 12/17/2024 6:54 PM EDT [facility] Potassium, Whole Blood 3.6 3.6 - 4.9 mmol/L LAB HEMATOLOGY METHOD 12/17/2024 6:54 PM EDT [facility] Chloride, Whole Blood 116(H) 97 - 107 mmol/L LAB HEMATOLOGY METHOD 12/17/2024 6:54 PM EDT [facility] Glucose, Whole Blood 176(H) 74 - 99 mg/dL LAB HEMATOLOGY METHOD 12/17/2024 6:54 PM EDT [facility] Ionized Calcium, Whole Blood 4.0(L) 4.6 - 5.1 mg/dL LAB HEMATOLOGY METHOD 12/17/2024 6:54 PM EDT [facility] Lactate, Arterial, Whole Blood 1.6 0.5 - 1.6 mmol/L LAB HEMATOLOGY METHOD 12/17/2024 6:54 PM EDT [facility] Blood Arterial blood specimen / Unknown Arterial Puncture / Unknown 12/17/2024 6:43 PM EDT 12/17/2024 6:52 PM EDT Boris Al MD LAB BLOOD ORDERABLES Final R esult Performing Organization Address City/[facility]/ZIP Co de Phone Number [facility] [address] [place] [address] * (ABNORMAL) POCT glucose meter (12/17/2024 6:00 PM EDT) [facility] POCT Glucose 176(H) 74 - 99 mg/dL 12/17/2024 6:02 PM EDT [facility] Comment:Accuracy of a glucos e result obtained from a capillary whole blood specimen relies upon adequate, non-compromised capillary blood flow. If the capillary glucose result is not consistent with the patient's clinical signs and symptoms, glucose testing should be repeated with either an arterial or venous sample on the glucometer or sent to the main labortory for testing. Comment 12/17/2024 6:02 PM EDT [facility] Owner/Photographer ID Matt Mane 12/17/2024 6:02 PM EDT [facility] Device ID [id number] 12/17/2024 6:02 PM EDT [facility] Specimen Type POC Arterial 12/17/2024 6:02 PM EDT [facility] Blood Arterial blood specimen / Unknown 12/17/2024 6:00 PM EDT 12/17/2024 6:02 PM EDT Boris Al MD LAB POINT OF CARE TE ST DOCKED DEVICE UNSOLICITED RESULTS Final Result Performing Organization Address City/[facility]/ZIP Co de Phone Number [facility] [address] [place] [address] * (ABNORMAL) Phosphorus (12/17/2024 5:58 PM EDT) [facility] Phosphorus, Plasma 1.3(L) 2.5 - 4.5 mg/dL 12/17/2024 6:38 PM EDT [facility] Blood Venous blood specimen / Unknown Venipuncture / Unknown 12/17/2024 5:58 PM EDT 12/17/2024 6:04 PM EDT us Boris Al MD LAB BLOOD ORDERABLES Final R esult Performing Organization Address City/[facility]/ZIP Co de Phone Number [facility] [address] [place] [address] * (ABNORMAL) Magnesium (12/17/2024 5:58 PM EDT) Magnesium, Plasma 4.5(H) 1.9 - 2.4 mg/dL 12/17/2024 6:38 PM EDT [facility] Blood Venous blood specimen / Unknown Venipuncture / Unknown 12/17/2024 5:58 PM EDT 12/17/2024 6:04 PM EDT us Boris Al MD LAB BLOOD ORDERABLES Final R esult Performing Organization Address City/[facility]/ZIP Co de Phone Number [facility] [address] [place] [address] * (ABNORMAL) Basic metabolic panel (12/17/2024 5:58 PM EDT) Glucose, Plasma 169(H) 74 - 99 mg/dL 12/17/2024 6:38 PM EDT [facility] BUN, Plasma 16 8 - 23 mg/dL 12/17/2024 6:38 PM EDT [facility] Creatinine, Plasma 0.74 0.60 - 1.10 mg/dL 12/17/2024 6:38 PM EDT [facility] BUN/Creatinine Ratio 22 12/17/2024 6:38 PM EDT [facility] Sodium, Plasma 147(H) 136 - 145 mmol/L 12/17/2024 6:38 PM EDT [facility] Potassium, Plasma 3.7 3.6 - 4.9 mmol/L 12/17/2024 6:38 PM EDT [facility] Chloride, Plasma 115(H) 97 - 107 mmol/L 12/17/2024 6:38 PM EDT [facility] CO2, Plasma 23 22 - 29 mmol/L 12/17/2024 6:38 PM EDT [facility] Anion Gap 9 6 - 16 mmol/L 12/17/2024 6:38 PM EDT [facility] Total Calcium, Plasma 7.1(L) 8.9 - 10.2 mg/dL 12/17/2024 6:38 PM EDT [facility] eGFRcr 92.8 mL/min/1.7 3m*2 12/17/2024 6:38 PM EDT [facility] Comment:Reported eGFRcr in m L/min/1.73m2 is based the CKD-EPI 2020 equation that does not use a race coefficient. Blood Venous blood specimen / Unknown Venipuncture / Unknown 12/17/2024 5:58 PM EDT 12/17/2024 6:04 PM EDT us Boris Al MD LAB BLOOD ORDERABLES Final R esult [facility] [address] [place] [address] * XR Chest 1 View (12/17/2024 5:38 PM EDT) Anatomical Region Laterality Modality Chest Digital Radiogra phy Impressions 12/17/2024 6:13 PM EDT Endotracheal tube tip 5 cm above the sheyla. Pulmonary vascular congestion and interstitial opacities. Small right pleural effusion. CRITICAL RESULT: No. COMMUNICATION: Per this written report. Drafted by Mireille Green MD on 12/17/2024 6:12 PM Final report signed by Mireille Green MD on 12/17/2024 6:13 PM Narrative 12/17/2024 6:13 PM EDT CLINICAL INDICATION: Post-Op Cardiac Surgery TECHNIQUE: XR CHEST 1 VIEW COMPARISON: December 14, 2023 FINDINGS: Endotracheal tube tip 5 cm above the sheyla. Nasogastric tube tip in the proximal stomach. Right internal jugular approach Hutchinson-Valorie catheter with tip over the proximal right pulmonary artery. Left subclavian port tip in the SVC. Pulmonary vascular congestion and mild interstitial opacities. Small right pleural effusion. No pneumothorax. Interval median sternotomy and CABG. Procedure Note Mireille Green MD - 12/17/2024 CLINICAL INDICATION: Post-Op Cardiac Surgery TECHNIQUE: XR CHEST 1 VIEW COMPARISON: December 14, 2023 FINDINGS: Endotracheal tube tip 5 cm above the sheyla. Nasogastric tube tip in theproximal stomach. Right internal jugular approach Hutchinson-Valorie catheter withtip over the proximal right pulmonary artery. Left subclavian port tip inthe SVC. Pulmonary vascular congestion and mild interstitial opacities.Small right pleural effusion. No pneumothorax. Interval median sternotomyand CABG. IMPRESSION: Endotracheal tube tip 5 cm above the sheyla. Pulmonary vascular congestion and interstitial opacities. Small right pleural effusion. CRITICAL RESULT: No. COMMUNICATION: Per this written report. Drafted by Mireille Green MD on 12/17/2024 6:12 PM Final report signed by Mireille Green MD on 12/17/2024 6:13 PM Boris Al MD IMG XR PROCEDURES Final Resu lt * (ABNORMAL) Blood gas panel, arterial (12/17/2024 5:15 PM EDT) pH, Arterial 7.32 7.31 - 7.42 LAB HEMATOLOGY METHOD 12/17/2024 5:22 PM EDT [facility] pCO2, Arterial 45 35 - 48 mmHg LAB HEMATOLOGY METHOD 12/17/2024 5:22 PM EDT [facility] pO2, Arterial 167 >80 mmHg LAB HEMATOLOGY METHOD 12/17/2024 5:22 PM EDT [facility] SO2, Measured, Arterial 100(H) 94 - 98 % LAB HEMATOLOGY METHOD 12/17/2024 5:22 PM EDT [facility] Base Excess, Arterial -2.8(L) -2.0 - 3.0 mmol/L LAB HEMATOLOGY METHOD 12/17/2024 5:22 PM EDT [facility] Bicarbonate, Calculated, Arterial 23 22 - 26 mmol/L LAB HEMATOLOGY METHOD 12/17/2024 5:22 PM EDT [facility] Hematocrit, Whole Blood 32.7(L) 34.0 - 45.0 % LAB HEMATOLOGY METHOD 12/17/2024 5:22 PM EDT [facility] Sodium, Whole Blood 148(H) 136 - 145 mmol/L LAB HEMATOLOGY METHOD 12/17/2024 5:22 PM EDT [facility] Potassium, Whole Blood 3.3(L) 3.6 - 4.9 mmol/L LAB HEMATOLOGY METHOD 12/17/2024 5:22 PM EDT [facility] Chloride, Whole Blood 117(H) 97 - 107 mmol/L LAB HEMATOLOGY METHOD 12/17/2024 5:22 PM EDT [facility] Glucose, Whole Blood 150(H) 74 - 99 mg/dL LAB HEMATOLOGY METHOD 12/17/2024 5:22 PM EDT [facility] Ionized Calcium, Whole Blood 4.2(L) 4.6 - 5.1 mg/dL LAB HEMATOLOGY METHOD 12/17/2024 5:22 PM EDT [facility] Lactate, Arterial, Whole Blood 1.9(H) 0.5 - 1.6 mmol/L LAB HEMATOLOGY METHOD 12/17/2024 5:22 PM EDT [facility] Blood Arterial blood specimen / Unknown Arterial Puncture / Unknown 12/17/2024 5:15 PM EDT 12/17/2024 5:20 PM EDT Boris Al MD LAB BLOOD ORDERABLES Final R esult [facility] [address] [place] [address] * (ABNORMAL) POCT glucose meter (12/17/2024 4:52 PM EDT) [facility] POCT Glucose 192(H) 74 - 99 mg/dL 12/17/2024 4:53 PM EDT [facility] Comment:Accuracy of a glucos e result obtained from a capillary whole blood specimen relies upon adequate, non-compromised capillary blood flow. If the capillary glucose result is not consistent with the patient's clinical signs and symptoms, glucose testing should be repeated with either an arterial or venous sample on the glucometer or sent to the main labortory for testing. Comment 12/17/2024 4:53 PM EDT [facility] Owner/Photographer ID Matt Mane 12/17/2024 4:53 PM EDT [facility] Device ID [id number] 12/17/2024 4:53 PM EDT [facility] Specimen Type POC Arterial 12/17/2024 4:53 PM EDT [facility] Blood Arterial blood specimen / Unknown 12/17/2024 4:52 PM EDT 12/17/2024 4:53 PM EDT us Boris Al MD LAB POINT OF CARE TE ST DOCKED DEVICE UNSOLICITED RESULTS Final Result [facility] [address] [place] [address] * ID CRITICAL CARE, E/M 30-74 MINUTES (12/17/2024 4:22 PM EDT) Narrative Doug Otero MD - 12/17/2024 4:22 PM EDT Doug Otero MD 12/23/2024 8:49 PM Critical Care Performed by: Doug Otero MD Authorized by: Doug Otero MD Critical care provider statement: Critical care time (minutes): 40 Critical care time was exclusive of: Separately billable procedures and treating other patients and teaching time Critical care was time spent personally by me on the following activities: Development of treatment plan with patient or surrogate, discussions with consultants, discussions with primary provider, evaluation of patient's response to treatment, examination of patient, obtaining history from patient or surrogate, ordering and performing treatments and interventions, ordering and review of laboratory studies, ordering and review of radiographic studies, review of old charts and ventilator management I assumed subsequent critical care for this patient from a provider in my division, on the same day: no Critical care statement: I saw and evaluated the patient with the resident/ fellow. I discussed the case with the resident/ fellow and agree with the findings and plan as documented. us Doug Otero MD IN CLINIC/BEDSIDE ORDERABLES Fi nal Result * Shaheen auris Surveillance by PCR (12/17/2024 3:40 PM EDT) Shaheen auris PCR Result Not Detected Not Detected 12/19/2024 4:46 AM EDT [facility] Swab (Axilla and Groin) Non-blood Collection / Unknown 12/17/2024 3:40 PM EDT 12/17/2024 3:53 PM EDT Narrative [facility] - 12/19/2024 4:46 AM EDT This PCR assay was developed and its performance characteristics determined by [facility] as appropriate for clinical purposes. This assay has not been cleared or approved by the FDA, but is performed in a CLIA regulated laboratory that is qualified to perform high-complexity testing. This PCR assay was developed and its performance characteristics determined by [facility] as appropriate for clinical purposes. This assay has not been cleared or approved by the FDA, but is performed in a CLIA regulated laboratory that is qualified to perform high-complexity testing. Boris Al MD LAB MICROBIOLOGY - GENERAL O RDERABLES Final Result Performing Organization Address [facility] Co de Phone Number [facility] [address] [place] [address] * Multi Drug Resistance Test (12/17/2024 3:40 PM EDT) Culture No growth at day 1 12/18/2024 8:[address] [facility] Swab (Nares and Paige Rectal) Non-blood Collection / Unknown 12/17/2024 3:40 PM EDT 12/17/2024 3:53 PM EDT Narrative [facility] - 12/18/2024 8:06 PM EDT This test was developed and its performance characteristics determined by the [facility]. Although the media is FDA-approved, it is not FDA-approved for all specimen types submitted. The FDA has determined that such clearance or approval is not necessary. This test is used for surveillance purposes. It should not be regarded as investigational or for research. The [facility] is certified under the Clinical Laboratory Improvement Amendments of 1988 (CLIA-88) as qualified to perform high complexity clinical laboratory testing. Boris Al MD LAB MICROBIOLOGY - GENERAL O RDERABLES Final Result Performing Organization Address [facility] Co de Phone Number [facility] [address] [place] [address] * APTT (12/17/2024 3:39 PM EDT) aPTT 28 25 - 35 sec LAB COAGULATION METHOD 12/17/2024 4:12 PM EDT [facility] Blood Venous blood specimen / Unknown Venipuncture / Unknown 12/17/2024 3:39 PM EDT 12/17/2024 3:54 PM EDT Boris Al MD LAB BLOOD ORDERABLES Final R esult Performing Organization Address [facility] Co de Phone Number [facility] [address] [place] [address] * (ABNORMAL) Protime-INR (12/17/2024 3:39 PM EDT) Prothrombin Time 17.6(H) 12.0 - 14.3 sec LAB COAGULATION METHOD 12/17/2024 4:12 PM EDT [facility] INR 1.4(H) 0.9 - 1.1 LAB COAGULATION METHOD 12/17/2024 4:12 PM EDT [facility] Blood Venous blood specimen / Unknown Venipuncture / Unknown 12/17/2024 3:39 PM EDT 12/17/2024 3:54 PM EDT Narrative [facility] - 12/17/2024 4:12 PM EDT OPTIMAL INR RANGES FOR PATIENT ON ORAL ANTICOAGULANT THERAPY Prevention of venous thromboembolism INR 2.0 to 3.0 In patients with heart disease: Atrial fibrillation INR 2.0 to 3.0 Valvular heart disease INR 2.0 to 3.0 Tissue heart valves INR 2.0 to 3.0 Mechanical prosthetic valves INR 2.5 to 3.5 Prevention of recurrent AK INR 2.5 to 3.5 Boris Al MD LAB BLOOD ORDERABLES Final R esult Performing Organization Address City/[facility]/ZIP Co de Phone Number [facility] [address] [place] [address] * (ABNORMAL) Phosphorus (12/17/2024 3:39 PM EDT) Phosphorus, Plasma 0.9(LL) 2.5 - 4.5 mg/dL 12/17/2024 4:36 PM EDT [facility] Blood Venous blood specimen / Unknown Venipuncture / Unknown 12/17/2024 3:39 PM EDT 12/17/2024 3:54 PM EDT Boris Al MD LAB BLOOD ORDERABLES Final R esult Performing Organization Address [facility]/ZIP Co de Phone Number [facility] [address] [place] [address] * (ABNORMAL) Magnesium (12/17/2024 3:39 PM EDT) Magnesium, Plasma 6.3(HH) 1.9 - 2.4 mg/dL 12/17/2024 4:36 PM EDT [facility] Blood Venous blood specimen / Unknown Venipuncture / Unknown 12/17/2024 3:39 PM EDT 12/17/2024 3:54 PM EDT us Boris Al MD LAB BLOOD ORDERABLES Final R esult Performing Organization Address [facility] Co de Phone Number [facility] [address] [place] [address] * (ABNORMAL) Basic metabolic panel (12/17/2024 3:39 PM EDT) Glucose, Plasma 71(L) 74 - 99 mg/dL 12/17/2024 4:36 PM EDT [facility] BUN, Plasma 15 8 - 23 mg/dL 12/17/2024 4:36 PM EDT [facility] Creatinine, Plasma 0.77 0.60 - 1.10 mg/dL 12/17/2024 4:36 PM EDT [facility] BUN/Creatinine Ratio 19 12/17/2024 4:36 PM EDT [facility] Sodium, Plasma 149(H) 136 - 145 mmol/L 12/17/2024 4:36 PM EDT [facility] Potassium, Plasma 3.7 3.6 - 4.9 mmol/L 12/17/2024 4:36 PM EDT [facility] Comment:Hemolyzed, result ma y be falsely increased. Chloride, Plasma 117(H) 97 - 107 mmol/L 12/17/2024 4:36 PM EDT [facility] CO2, Plasma 23 22 - 29 mmol/L 12/17/2024 4:36 PM EDT [facility] Anion Gap 9 6 - 16 mmol/L 12/17/2024 4:36 PM EDT [facility] Total Calcium, Plasma 7.6(L) 8.9 - 10.2 mg/dL 12/17/2024 4:36 PM EDT [facility] eGFRcr 88.4 mL/min/1.7 3m*2 12/17/2024 4:36 PM EDT [facility] Comment:Reported eGFRcr in m L/min/1.73m2 is based the CKD-EPI 2020 equation that does not use a race coefficient. Blood Venous blood specimen / Unknown Venipuncture / Unknown 12/17/2024 3:39 PM EDT 12/17/2024 3:54 PM EDT us Boris Al MD LAB BLOOD ORDERABLES Final R esult [facility] [address] [place] [address] * (ABNORMAL) CBC (12/17/2024 3:39 PM EDT) WBC Count 14.26(H) 3.70 - 10.30 10*3/uL LAB HEMATOLOGY METHOD 12/17/2024 4:10 PM EDT [facility] RBC Count 3.61(L) 3.90 - 5.20 10*6/uL LAB HEMATOLOGY METHOD 12/17/2024 4:10 PM EDT [facility] HGB 11.8 11.2 - 15.7 g/dL LAB HEMATOLOGY METHOD 12/17/2024 4:10 PM EDT [facility] HCT 33.1(L) 34.0 - 45.0 % LAB HEMATOLOGY METHOD 12/17/2024 4:10 PM EDT [facility] Platelet Count 116(L) 155 - 369 10*3/uL LAB HEMATOLOGY METHOD 12/17/2024 4:10 PM EDT [facility] MCV 92 79 - 98 fL LAB HEMATOLOGY METHOD 12/17/2024 4:10 PM EDT [facility] Comment:Results inconsistent with previous lab findings. MCH 32.7(H) 26.0 - 32.0 pg LAB HEMATOLOGY METHOD 12/17/2024 4:10 PM EDT [facility] MCHC 35.6(H) 30.7 - 35.5 g/dL LAB HEMATOLOGY METHOD 12/17/2024 4:10 PM EDT [facility] [facility] RDW 17.6(H) 11.5 - 14.5 % LAB HEMATOLOGY METHOD 12/17/2024 4:10 PM EDT [facility] MPV 11.1 8.8 - 12.5 fL LAB HEMATOLOGY METHOD 12/17/2024 4:10 PM EDT [facility] nRBC 0.0 <=0.0 per 100 WBCs LAB HEMATOLOGY METHOD 12/17/2024 4:10 PM EDT [facility] Blood Venous blood specimen / Unknown Venipuncture / Unknown 12/17/2024 3:39 PM EDT 12/17/2024 3:54 PM EDT us Boris Al MD LAB BLOOD ORDERABLES Final R esult [facility] [address] [place] [address] * (ABNORMAL) Blood gas, arterial (12/17/2024 3:39 PM EDT) pH, Arterial 7.32 7.31 - 7.42 LAB HEMATOLOGY METHOD 12/17/2024 3:51 PM EDT [facility] pCO2, Arterial 46 35 - 48 mmHg LAB HEMATOLOGY METHOD 12/17/2024 3:51 PM EDT [facility] pO2, Arterial 182 >80 mmHg LAB HEMATOLOGY METHOD 12/17/2024 3:51 PM EDT [facility] SO2, Measured, Arterial 100(H) 94 - 98 % LAB HEMATOLOGY METHOD 12/17/2024 3:51 PM EDT [facility] Base Excess, Arterial -2.3(L) -2.0 - 3.0 mmol/L LAB HEMATOLOGY METHOD 12/17/2024 3:51 PM EDT [facility] Bicarbonate, Calculated, Arterial 24 22 - 26 mmol/L LAB HEMATOLOGY METHOD 12/17/2024 3:51 PM EDT [facility] Hematocrit, Whole Blood 35.1 34.0 - 45.0 % LAB HEMATOLOGY METHOD 12/17/2024 3:51 PM EDT [facility] Sodium, Whole Blood 148(H) 136 - 145 mmol/L LAB HEMATOLOGY METHOD 12/17/2024 3:51 PM EDT [facility] Potassium, Whole Blood 3.4(L) 3.6 - 4.9 mmol/L LAB HEMATOLOGY METHOD 12/17/2024 3:51 PM EDT [facility] Chloride, Whole Blood 117(H) 97 - 107 mmol/L LAB HEMATOLOGY METHOD 12/17/2024 3:51 PM EDT [facility] Glucose, Whole Blood 71(L) 74 - 99 mg/dL LAB HEMATOLOGY METHOD 12/17/2024 3:51 PM EDT [facility] Ionized Calcium, Whole Blood 4.5(L) 4.6 - 5.1 mg/dL LAB HEMATOLOGY METHOD 12/17/2024 3:51 PM EDT [facility] Lactate, Arterial, Whole Blood 1.8(H) 0.5 - 1.6 mmol/L LAB HEMATOLOGY METHOD 12/17/2024 3:51 PM EDT [facility] Blood Arterial blood specimen / Unknown Arterial Puncture / Unknown 12/17/2024 3:39 PM EDT 12/17/2024 3:50 PM EDT us Boris Al MD LAB BLOOD ORDERABLES Final R esult Performing Organization Address City/State/[facility] Co de Phone Number [facility] [address] [place] [address] * ECG Adult - Upon Admissoin to CVICU (12/17/2024 3:32 PM EDT) EKG DIAGNOSIS CLASS Abnormal MUSE ECG Ventricular Rate 76 BPM MUSE ECG Atrial Rate 76 BPM MUSE ECG ID Interval 206 ms MUSE ECG QRSD Interval 114 ms MUSE ECG QT Interval 444 ms MUSE ECG QTC Interval 499 ms MUSE ECG P [place] 63 degrees MUSE ECG R [place] 55 degrees MUSE ECG T Wave [place] -50 degrees MUSE ECG Diagnosis Normal sinus rhythm MUSE ECG Diagnosis Possible Inferior infarct , age undetermined MUSE ECG Diagnosis Nonspecific intraventricular conduction delay MUSE ECG Diagnosis QTcB >= 480 msec MUSE ECG Diagnosis Abnormal ECG MUSE ECG Diagnosis No previous ECGs available MUSE ECG Diagnosis MUSE ECG Diagnosis Confirmed by Mo Evans ([id number]) on 12/17/2024 5:42:20 PM MUSE ECG 12/17/2024 3:32 PM EDT 12/17/2024 5:42 PM EDT Boris Al MD ECG ORDERABLES Final Result MUSE ECG * POCT ACT (12/17/2024 2:11 PM EDT) ACT+ (HIGH RANGE) 126 68 - 600 Seconds 12/17/2024 2:14 PM EDT [facility] Owner/Photographer ID Huy Kyle 12/17/2024 2:14 PM EDT [facility] ACT Device ID [id number] 12/17/2024 2:14 PM EDT [facility] Comment 12/17/2024 2:14 PM EDT [facility] Comment: ACT performed by staff at point of care. Results are reported immediately to the physician or primary caregiver. The activated clotting time is performed on patients with diverse clinical characteristics and treatment histories. Therefore, expected values are variable and results must be interpreted in the context of each individual patient. Blood Venous blood specimen / Unknown 12/17/2024 2:11 PM EDT 12/17/2024 2:14 PM EDT Result [facility] Boris Al MD LAB POINT OF CARE TE ST DOCKED DEVICE UNSOLICITED RESULTS Final Result Performing Organization Address City/[facility] Co de Phone Number [facility] [address] LAB [address] [place] [address] * Transfuse RBC (12/17/2024 2:00 PM EDT) Result [facility] Swati Burton MD BLOOD TRANSFUSION ORDERABL ES Final Result * (ABNORMAL) POCT arterial blood gas gem (12/17/2024 1:52 PM EDT) pH, Arterial 7.34 7.31 - 7.42 12/17/2024 1:59 PM EDT [facility] pCO2, Arterial 48 35 - 48 mm Hg 12/17/2024 1:59 PM EDT [facility] pO2, Arterial 270 >80 mm Hg 12/17/2024 1:59 PM EDT [facility] SO2, Arterial 99(H) 94 - 98 % 12/17/2024 1:59 PM EDT [facility] Base Excess, Arterial 0.0 -2 - 3 mmol/L 12/17/2024 1:59 PM EDT [facility] HCO3, Arterial 25.9 22 - 26 mmol/L 12/17/2024 1:59 PM EDT [facility] Total Hemoglobin, Arterial, Whole Blood 7.3(L) 11.2 - 15.7 g/dL 12/17/2024 1:59 PM T [facility] Hematocrit, Arterial 22.0(L) 34.0 - 45.0 % 12/17/2024 1:59 PM T [facility] Sodium, Arterial 149(H) 136 - 145 mmol/L 12/17/2024 1:59 PM T [facility] Potassium, Arterial 3.1(L) 3.6 - 4.9 mmol/L 12/17/2024 1:59 PM T [facility] Chloride, Whole Blood 115(H) 97 - 107 mmol/L 12/17/2024 1:59 PM T [facility] Glucose, Arterial 226(H) 74 - 99 mg/dL 12/17/2024 1:59 PM T [facility] Ionized Calcium, Arterial 4.8 4.6 - 5.1 mg/dL 12/17/2024 1:59 PM EDT [facility] Lactate, Arterial 3.5(H) 0.5 - 1.6 mmol/L 12/17/2024 1:59 PM T [facility] Body Temperature 37.0 Celsius 12/17/2024 1:59 PM T [facility] pH, Temp Corrected, Arterial 7.34 7.31 - 7.42 12/17/2024 1:59 PM EDT [facility] pCO2, Temp Corrected, Arterial 48 35 - 48 mm Hg 12/17/2024 1:59 PM EDT [facility] pO2, Temp Corrected, Arterial 270 >80 mm Hg 12/17/2024 1:59 PM EDT [facility] Owner/Photographer ID Swati Burton 12/17/2024 1:59 PM EDT [facility] Blood, Arterial Whole blood specimen / Unknown 12/17/2024 1:52 PM EDT 12/17/2024 1:59 PM EDT Boris Al MD LAB POINT OF CARE TE ST DOCKED DEVICE UNSOLICITED RESULTS Final Result Performing Organization Address [facility] Co de Phone Number [facility] [address] [place] [address] * POCT ACT (12/17/2024 1:48 PM EDT) ACT+ (HIGH RANGE) 140 68 - 600 Seconds 12/17/2024 1:52 PM EDT [facility] Owner/Photographer ID Alex Clarke 12/17/2024 1:52 PM EDT [facility] ACT Device ID [id number] 12/17/2024 1:52 PM EDT [facility] Comment 12/17/2024 1:52 PM EDT [facility] Comment: ACT performed by staff at point of care. Results are reported immediately to the physician or primary caregiver. The activated clotting time is performed on patients with diverse clinical characteristics and treatment histories. Therefore, expected values are variable and results must be interpreted in the context of each individual patient. Blood Venous blood specimen / Unknown 12/17/2024 1:48 PM EDT 12/17/2024 1:52 PM EDT Boris Al MD LAB POINT OF CARE TE ST DOCKED DEVICE UNSOLICITED RESULTS Final Result Performing Organization Address City/[facility] Co de Phone Number [facility] [address] LAB [address] [place] [address] * (ABNORMAL) POCT arterial blood gas gem (12/17/2024 1:27 PM EDT) pH, Arterial 7.33 7.31 - 7.42 12/17/2024 1:29 PM EDT [facility] pCO2, Arterial 37 35 - 48 mm Hg 12/17/2024 1:29 PM EDT [facility] pO2, Arterial 304 >80 mm Hg 12/17/2024 1:29 PM EDT [facility] SO2, Arterial 98 94 - 98 % 12/17/2024 1:29 PM EDT [facility] Base Excess, Arterial -5.9(L) -2 - 3 mmol/L 12/17/2024 1:29 PM EDT [facility] HCO3, Arterial 19.5(L) 22 - 26 mmol/L 12/17/2024 1:29 PM EDT [facility] Total Hemoglobin, Arterial, Whole Blood 7.3(L) 11.2 - 15.7 g/dL 12/17/2024 1:29 PM T [facility] Hematocrit, Arterial 22.0(L) 34.0 - 45.0 % 12/17/2024 1:29 PM [facility] Sodium, Arterial 141 136 - 145 mmol/L 12/17/2024 1:29 PM T [facility] Potassium, Arterial 3.8 3.6 - 4.9 mmol/L 12/17/2024 1:29 PM [facility] Chloride, Whole Blood 114(H) 97 - 107 mmol/L 12/17/2024 1:29 PM [facility] Glucose, Arterial 296(H) 74 - 99 mg/dL 12/17/2024 1:29 PM [facility] Ionized Calcium, Arterial 4.8 4.6 - 5.1 mg/dL 12/17/2024 1:29 PM [facility] Lactate, Arterial 4.2(H) 0.5 - 1.6 mmol/L 12/17/2024 1:29 PM T [facility] Body Temperature 37.0 Celsius 12/17/2024 1:29 PM [facility] pH, Temp Corrected, Arterial 7.33 7.31 - 7.42 12/17/2024 1:29 PM [facility] pCO2, Temp Corrected, Arterial 37 35 - 48 mm Hg 12/17/2024 1:29 PM T [facility] pO2, Temp Corrected, Arterial 304 >80 mm Hg 12/17/2024 1:29 PM EDT [facility] Owner/Photographer ID Alex Clarke 12/17/2024 1:29 PM EDT [facility] Blood, Arterial Whole blood specimen / Unknown 12/17/2024 1:27 PM EDT 12/17/2024 1:29 PM EDT Boris Al MD LAB POINT OF CARE TE ST DOCKED DEVICE UNSOLICITED RESULTS Final Result Performing Organization Address [facility] de Phone Number [facility] [address] [place] [address] * (ABNORMAL) POCT ACT (12/17/2024 1:23 PM EDT) ACT+ (HIGH RANGE) >600(H) 68 - 600 Seconds 12/17/2024 1:34 PM EDT [facility] Owner/Photographer ID Alex Clarke 12/17/2024 1:34 PM EDT [facility] ACT Device ID [id number] 12/17/2024 1:34 PM EDT [facility] Comment 12/17/2024 1:34 PM EDT [facility] Comment: ACT performed by staff at point of care. Results are reported immediately to the physician or primary caregiver. The activated clotting time is performed on patients with diverse clinical characteristics and treatment histories. Therefore, expected values are variable and results must be interpreted in the context of each individual patient. Blood Venous blood specimen / Unknown 12/17/2024 1:23 PM EDT 12/17/2024 1:34 PM EDT Boris Al MD LAB POINT OF CARE TE ST DOCKED DEVICE UNSOLICITED RESULTS Final Result Performing Organization Address City/[facility] de Phone Number [facility] [address] LAB [address] [place] [address] * (ABNORMAL) POCT arterial blood gas gem (12/17/2024 12:54 PM EDT) pH, Arterial 7.42 7.31 - 7.42 12/17/2024 12:55 PM EDT [facility] pCO2, Arterial 33(L) 35 - 48 mm Hg 12/17/2024 12:55 PM EDT [facility] pO2, Arterial 292 >80 mm Hg 12/17/2024 12:55 PM EDT [facility] SO2, Arterial 99(H) 94 - 98 % 12/17/2024 12:55 PM EDT [facility] Base Excess, Arterial -2.7(L) -2 - 3 mmol/L 12/17/2024 12:55 PM EDT [facility] HCO3, Arterial 21.4(L) 22 - 26 mmol/L 12/17/2024 12:55 PM T [facility] Total Hemoglobin, Arterial, Whole Blood 7.1(L) 11.2 - 15.7 g/dL 12/17/2024 12:55 PM T [facility] Hematocrit, Arterial 21.0(L) 34.0 - 45.0 % 12/17/2024 12:55 PM EDT [facility] Sodium, Arterial 144 136 - 145 mmol/L 12/17/2024 12:55 PM T [facility] Potassium, Arterial 4.1 3.6 - 4.9 mmol/L 12/17/2024 12:55 PM T [facility] Glucose, Arterial 250(H) 74 - 99 mg/dL 12/17/2024 12:55 PM T [facility] Ionized Calcium, Arterial 4.6 4.6 - 5.1 mg/dL 12/17/2024 12:55 PM T [facility] Lactate, Arterial 4.1(H) 0.5 - 1.6 mmol/L 12/17/2024 12:55 PM T [facility] Body Temperature 37.0 Celsius 12/17/2024 12:55 PM T [facility] pH, Temp Corrected, Arterial 7.42 7.31 - 7.42 12/17/2024 12:55 PM T [facility] pCO2, Temp Corrected, Arterial 33(L) 35 - 48 mm Hg 12/17/2024 12:55 PM T [facility] pO2, Temp Corrected, Arterial 292 >80 mm Hg 12/17/2024 12:55 PM EDT [facility] Owner/Photographer ID Alex Clarke 12/17/2024 12:55 PM T [facility] Blood, Arterial Whole blood specimen / Unknown 12/17/2024 12:54 PM EDT 12/17/2024 12:55 PM EDT us Boris Al MD LAB POINT OF CARE TE ST DOCKED DEVICE UNSOLICITED RESULTS Final Result Performing Organization Address [facility] Co de Phone Number [facility] [address] [place] [address] * (ABNORMAL) POCT ACT (12/17/2024 12:51 PM EDT) ACT+ (HIGH RANGE) >600(H) 68 - 600 Seconds 12/17/2024 1:01 PM EDT [facility] Owner/Photographer ID Alex Clarke 12/17/2024 1:01 PM EDT [facility] ACT Device ID [id number] 12/17/2024 1:01 PM EDT [facility] Comment 12/17/2024 1:01 PM EDT [facility] Comment: ACT performed by staff at point of care. Results are reported immediately to the physician or primary caregiver. The activated clotting time is performed on patients with diverse clinical characteristics and treatment histories. Therefore, expected values are variable and results must be interpreted in the context of each individual patient. Blood Venous blood specimen / Unknown 12/17/2024 12:51 PM EDT 12/17/2024 1:01 PM EDT us Boris Al MD LAB POINT OF CARE TE ST DOCKED DEVICE UNSOLICITED RESULTS Final Result Performing Organization Address [facility] Co de Phone Number [facility] [address] LAB [address] [place] [address] * (ABNORMAL) POCT arterial blood gas gem (12/17/2024 12:22 PM EDT) pH, Arterial 7.36 7.31 - 7.42 12/17/2024 12:23 PM EDT [facility] pCO2, Arterial 37 35 - 48 mm Hg 12/17/2024 12:23 PM EDT [facility] pO2, Arterial 349 >80 mm Hg 12/17/2024 12:23 PM EDT [facility] SO2, Arterial 99(H) 94 - 98 % 12/17/2024 12:23 PM EDT [facility] Base Excess, Arterial -4.1(L) -2 - 3 mmol/L 12/17/2024 12:23 PM EDT [facility] HCO3, Arterial 20.9(L) 22 - 26 mmol/L 12/17/2024 12:23 PM EDT [facility] Total Hemoglobin, Arterial, Whole Blood 7.6(L) 11.2 - 15.7 g/dL 12/17/2024 12:23 PM EDT [facility] Hematocrit, Arterial 23.0(L) 34.0 - 45.0 % 12/17/2024 12:23 PM EDT [facility] Sodium, Arterial 141 136 - 145 mmol/L 12/17/2024 12:23 PM EDT [facility] Potassium, Arterial 4.5 3.6 - 4.9 mmol/L 12/17/2024 12:23 PM EDT [facility] Glucose, Arterial 310(H) 74 - 99 mg/dL 12/17/2024 12:23 PM EDT [facility] Ionized Calcium, Arterial 4.6 4.6 - 5.1 mg/dL 12/17/2024 12:23 PM EDT [facility] Lactate, Arterial 2.7(H) 0.5 - 1.6 mmol/L 12/17/2024 12:23 PM EDT [facility] Body Temperature 37.0 Celsius 12/17/2024 12:23 PM EDT [facility] pH, Temp Corrected, Arterial 7.36 7.31 - 7.42 12/17/2024 12:23 PM EDT [facility] pCO2, Temp Corrected, Arterial 37 35 - 48 mm Hg 12/17/2024 12:23 PM EDT [facility] pO2, Temp Corrected, Arterial 349 >80 mm Hg 12/17/2024 12:23 PM EDT [facility] Owner/Photographer ID Alex Clarke 12/17/2024 12:23 PM EDT [facility] Blood, Arterial Whole blood specimen / Unknown 12/17/2024 12:22 PM EDT 12/17/2024 12:23 PM EDT us Boris Al MD LAB POINT OF CARE TE ST DOCKED DEVICE UNSOLICITED RESULTS Final Result [facility] [address] [place] [id number] * POCT ACT (12/17/2024 12:18 PM EDT) ACT+ (HIGH RANGE) 532 68 - 600 Seconds 12/17/2024 12:27 PM EDT [facility] Owner/Photographer ID Alex Clarke 12/17/2024 12:27 PM EDT [facility] ACT Device ID [id number] 12/17/2024 12:27 PM EDT [facility] Comment 12/17/2024 12:27 PM EDT [facility] Comment: ACT performed by staff at point of care. Results are reported immediately to the physician or primary caregiver. The activated clotting time is performed on patients with diverse clinical characteristics and treatment histories. Therefore, expected values are variable and results must be interpreted in the context of each individual patient. Blood Venous blood specimen / Unknown 12/17/2024 12:18 PM EDT 12/17/2024 12:27 PM EDT Boris Al MD LAB POINT OF CARE TE ST DOCKED DEVICE UNSOLICITED RESULTS Final Result [facility] [address] LAB [address] [place] [address] * (ABNORMAL) POCT arterial blood gas gem (12/17/2024 11:59 AM EDT) pH, Arterial 7.36 7.31 - 7.42 12/17/2024 12:00 PM EDT [facility] pCO2, Arterial 43 35 - 48 mm Hg 12/17/2024 12:00 PM EDT [facility] pO2, Arterial 251 >80 mm Hg 12/17/2024 12:00 PM EDT [facility] SO2, Arterial 99(H) 94 - 98 % 12/17/2024 12:00 PM EDT [facility] Base Excess, Arterial -1.1 -2 - 3 mmol/L 12/17/2024 12:00 PM EDT [facility] HCO3, Arterial 24.3 22 - 26 mmol/L 12/17/2024 12:00 PM EDT [facility] Total Hemoglobin, Arterial, Whole Blood 8.1(L) 11.2 - 15.7 g/dL 12/17/2024 12:00 PM EDT [facility] Hematocrit, Arterial 24.0(L) 34.0 - 45.0 % 12/17/2024 12:00 PM EDT [facility] Sodium, Arterial 142 136 - 145 mmol/L 12/17/2024 12:00 PM EDT [facility] Potassium, Arterial 4.1 3.6 - 4.9 mmol/L 12/17/2024 12:00 PM EDT [facility] Chloride, Whole Blood 112(H) 97 - 107 mmol/L 12/17/2024 12:00 PM EDT [facility] Glucose, Arterial 305(H) 74 - 99 mg/dL 12/17/2024 12:00 PM EDT [facility] Ionized Calcium, Arterial 4.5(L) 4.6 - 5.1 mg/dL 12/17/2024 12:00 PM EDT [facility] Lactate, Arterial 1.6 0.5 - 1.6 mmol/L 12/17/2024 12:00 PM EDT [facility] Body Temperature 37.0 Celsius 12/17/2024 12:00 PM EDT [facility] pH, Temp Corrected, Arterial 7.36 7.31 - 7.42 12/17/2024 12:00 PM EDT [facility] pCO2, Temp Corrected, Arterial 43 35 - 48 mm Hg 12/17/2024 12:00 PM EDT [facility] pO2, Temp Corrected, Arterial 251 >80 mm Hg 12/17/2024 12:00 PM EDT [facility] Owner/Photographer ID Alex Clarke 12/17/2024 12:00 PM EDT [facility] Blood, Arterial Whole blood specimen / Unknown 12/17/2024 11:59 AM EDT 12/17/2024 12:00 PM EDT us Boris Al MD LAB POINT OF CARE TE ST DOCKED DEVICE UNSOLICITED RESULTS Final Result [facility] [address] [place] [address] * (ABNORMAL) POCT ACT (12/17/2024 11:55 AM EDT) ACT+ (HIGH RANGE) >600(H) 68 - 600 Seconds 12/17/2024 12:06 PM EDT [facility] Owner/Photographer ID Alex Clarke 12/17/2024 12:06 PM EDT [facility] ACT Device ID [id number] 12/17/2024 12:06 PM EDT [facility] Comment 12/17/2024 12:06 PM EDT [facility] Comment: ACT performed by staff at point of care. Results are reported immediately to the physician or primary caregiver. The activated clotting time is performed on patients with diverse clinical characteristics and treatment histories. Therefore, expected values are variable and results must be interpreted in the context of each individual patient. Blood Venous blood specimen / Unknown 12/17/2024 11:55 AM EDT 12/17/2024 12:06 PM EDT Boris Al MD LAB POINT OF CARE TE ST DOCKED DEVICE UNSOLICITED RESULTS Final Result Performing Organization Address City/State/[facility] Co de Phone Number [facility] [address] [facility] [address] [place] [address] * (ABNORMAL) POCT arterial blood gas gem (12/17/2024 11:33 AM EDT) pH, Arterial 7.35 7.31 - 7.42 12/17/2024 11:34 AM EDT [facility] pCO2, Arterial 39 35 - 48 mm Hg 12/17/2024 11:34 AM EDT [facility] pO2, Arterial 339 >80 mm Hg 12/17/2024 11:34 AM EDT [facility] SO2, Arterial 99(H) 94 - 98 % 12/17/2024 11:34 AM EDT [facility] Base Excess, Arterial -3.8(L) -2 - 3 mmol/L 12/17/2024 11:34 AM EDT [facility] HCO3, Arterial 21.5(L) 22 - 26 mmol/L 12/17/2024 11:34 AM EDT [facility] Total Hemoglobin, Arterial, Whole Blood 6.9(L) 11.2 - 15.7 g/dL 12/17/2024 11:34 AM EDT [facility] Hematocrit, Arterial 21.0(L) 34.0 - 45.0 % 12/17/2024 11:34 AM EDT [facility] Sodium, Arterial 140 136 - 145 mmol/L 12/17/2024 11:34 AM EDT [facility] Potassium, Arterial 4.3 3.6 - 4.9 mmol/L 12/17/2024 11:34 AM EDT [facility] Chloride, Whole Blood 112(H) 97 - 107 mmol/L 12/17/2024 11:34 AM EDT [facility] Glucose, Arterial 316(H) 74 - 99 mg/dL 12/17/2024 11:34 AM EDT [facility] Ionized Calcium, Arterial 4.5(L) 4.6 - 5.1 mg/dL 12/17/2024 11:34 AM EDT [facility] Lactate, Arterial 1.3 0.5 - 1.6 mmol/L 12/17/2024 11:34 AM EDT [facility] Body Temperature 37.0 Celsius 12/17/2024 11:34 AM EDT [facility] pH, Temp Corrected, Arterial 7.35 7.31 - 7.42 12/17/2024 11:34 AM EDT [facility] pCO2, Temp Corrected, Arterial 39 35 - 48 mm Hg 12/17/2024 11:34 AM EDT [facility] pO2, Temp Corrected, Arterial 339 >80 mm Hg 12/17/2024 11:34 AM EDT [facility] Owner/Photographer ID Alex Clarke 12/17/2024 11:34 AM EDT [facility] Blood, Arterial Whole blood specimen / Unknown 12/17/2024 11:33 AM EDT 12/17/2024 11:34 AM EDT us Boris Al MD LAB POINT OF CARE TE ST DOCKED DEVICE UNSOLICITED RESULTS Final Result [facility] [address] [place] [address] * (ABNORMAL) POCT ACT (12/17/2024 11:28 AM EDT) ACT+ (HIGH RANGE) >600(H) 68 - 600 Seconds 12/17/2024 11:44 AM EDT [facility] Owner/Photographer ID Alex Clarke 12/17/2024 11:44 AM EDT [facility] ACT Device ID [id number] 12/17/2024 11:44 AM EDT [facility] Comment 12/17/2024 11:44 AM EDT [facility] Comment: ACT performed by staff at point of care. Results are reported immediately to the physician or primary caregiver. The activated clotting time is performed on patients with diverse clinical characteristics and treatment histories. Therefore, expected values are variable and results must be interpreted in the context of each individual patient. Blood Venous blood specimen / Unknown 12/17/2024 11:28 AM EDT 12/17/2024 11:44 AM EDT Boris Al MD LAB POINT OF CARE TE ST DOCKED DEVICE UNSOLICITED RESULTS Final Result [facility] [address] [facility] [address] [place] [address] * (ABNORMAL) POCT arterial blood gas gem (12/17/2024 11:04 AM EDT) pH, Arterial 7.37 7.31 - 7.42 12/17/2024 11:05 AM EDT [facility] pCO2, Arterial 34(L) 35 - 48 mm Hg 12/17/2024 11:05 AM EDT [facility] pO2, Arterial 513 >80 mm Hg 12/17/2024 11:05 AM EDT [facility] SO2, Arterial 98 94 - 98 % 12/17/2024 11:05 AM EDT [facility] Base Excess, Arterial -5.1(L) -2 - 3 mmol/L 12/17/2024 11:05 AM EDT [facility] HCO3, Arterial 19.7(L) 22 - 26 mmol/L 12/17/2024 11:05 AM EDT [facility] Total Hemoglobin, Arterial, Whole Blood 6.3(LL) 11.2 - 15.7 g/dL 12/17/2024 11:05 AM EDT [facility] Hematocrit, Arterial 19.0(LL) 34.0 - 45.0 % 12/17/2024 11:05 AM EDT [facility] Sodium, Arterial 137 136 - 145 mmol/L 12/17/2024 11:05 AM EDT [facility] Potassium, Arterial 5.5(H) 3.6 - 4.9 mmol/L 12/17/2024 11:05 AM EDT [facility] Chloride, Whole Blood 113(H) 97 - 107 mmol/L 12/17/2024 11:05 AM EDT [facility] Glucose, Arterial 318(H) 74 - 99 mg/dL 12/17/2024 11:05 AM EDT [facility] Ionized Calcium, Arterial 4.2(L) 4.6 - 5.1 mg/dL 12/17/2024 11:05 AM EDT [facility] Lactate, Arterial 1.3 0.5 - 1.6 mmol/L 12/17/2024 11:05 AM EDT [facility] LAB Body Temperature 37.0 Celsius 12/17/2024 11:05 AM EDT [facility] pH, Temp Corrected, Arterial 7.37 7.31 - 7.42 12/17/2024 11:05 AM EDT [facility] pCO2, Temp Corrected, Arterial 34(L) 35 - 48 mm Hg 12/17/2024 11:05 AM EDT [facility] pO2, Temp Corrected, Arterial 513 >80 mm Hg 12/17/2024 11:05 AM EDT [facility] Owner/Photographer ID Alex Clarke 12/17/2024 11:05 AM EDT [facility] Blood, Arterial Whole blood specimen / Unknown 12/17/2024 11:04 AM EDT 12/17/2024 11:05 AM EDT us Boris Al MD LAB POINT OF CARE TE ST DOCKED DEVICE UNSOLICITED RESULTS Final Result Performing Organization Address City/State/[facility] Co de Phone Number [facility] [address] [place] [address] * Transfuse RBC (12/17/2024 10:37 AM EDT) us Swati Burton MD BLOOD TRANSFUSION ORDERABL ES Final Result * (ABNORMAL) POCT arterial blood gas gem (12/17/2024 10:33 AM EDT) [facility] pH, Arterial 7.35 7.31 - 7.42 12/17/2024 10:34 AM [facility] pCO2, Arterial 35 35 - 48 mm Hg 12/17/2024 10:34 AM [facility] pO2, Arterial 248 >80 mm Hg 12/17/2024 10:34 AM [facility] SO2, Arterial 100(H) 94 - 98 % 12/17/2024 10:34 AM [facility] Base Excess, Arterial -5.7(L) -2 - 3 mmol/L 12/17/2024 10:34 AM [facility] HCO3, Arterial 19.3(L) 22 - 26 mmol/L 12/17/2024 10:34 AM [facility] Total Hemoglobin, Arterial, Whole Blood 9.3(L) 11.2 - 15.7 g/dL 12/17/2024 10:34 AM [facility] Hematocrit, Arterial 28.0(L) 34.0 - 45.0 % 12/17/2024 10:34 AM [facility] Sodium, Arterial 142 136 - 145 mmol/L 12/17/2024 10:34 AM [facility] Potassium, Arterial 4.3 3.6 - 4.9 mmol/L 12/17/2024 10:34 AM [facility] Chloride, Whole Blood 115(H) 97 - 107 mmol/L 12/17/2024 10:34 AM [facility] Glucose, Arterial 143(H) 74 - 99 mg/dL 12/17/2024 10:34 AM [facility] Ionized Calcium, Arterial 4.7 4.6 - 5.1 mg/dL 12/17/2024 10:34 AM [facility] Lactate, Arterial 0.5 0.5 - 1.6 mmol/L 12/17/2024 10:34 AM [facility] Body Temperature 37.0 Celsius 12/17/2024 10:34 AM [facility] pH, Temp Corrected, Arterial 7.35 7.31 - 7.42 12/17/2024 10:34 AM [facility] pCO2, Temp Corrected, Arterial 35 35 - 48 mm Hg 12/17/2024 10:34 AM EDT [facility] pO2, Temp Corrected, Arterial 248 >80 mm Hg 12/17/2024 10:34 AM EDT [facility] Owner/Photographer ID Alex Clarke 12/17/2024 10:34 AM EDT [facility] Blood, Arterial Whole blood specimen / Unknown 12/17/2024 10:33 AM EDT 12/17/2024 10:34 AM EDT us Boris Al MD LAB POINT OF CARE TE ST DOCKED DEVICE UNSOLICITED RESULTS Final Result Performing Organization Address City/[facility] Co de Phone Number [facility]ALTHCARE LAB [address] [place] [address] * (ABNORMAL) POCT ACT (12/17/2024 10:30 AM EDT) ACT+ (HIGH RANGE) >600(H) 68 - 600 Seconds 12/17/2024 10:45 AM EDT [facility] LAB Owner/Photographer ID Alex Clarke 12/17/2024 10:45 AM EDT [facility] ACT Device ID [id number] 12/17/2024 10:45 AM EDT [facility] Comment 12/17/2024 10:45 AM EDT [facility] Comment: ACT performed by staff at point of care. Results are reported immediately to the physician or primary caregiver. The activated clotting time is performed on patients with diverse clinical characteristics and treatment histories. Therefore, expected values are variable and results must be interpreted in the context of each individual patient. Blood Venous blood specimen / Unknown 12/17/2024 10:30 AM EDT 12/17/2024 10:45 AM EDT us Boris Al MD LAB POINT OF CARE TE ST DOCKED DEVICE UNSOLICITED RESULTS Final Result Performing Organization Address [facility] Co de Phone Number [facility]ALTH[facility]ARE LAB [address] LAB [address] [place] [address] * (ABNORMAL) POCT arterial blood gas gem (12/17/2024 7:57 AM EDT) pH, Arterial 7.28(L) 7.31 - 7.42 12/17/2024 8:31 AM [facility] pCO2, Arterial 48 35 - 48 mm Hg 12/17/2024 8:31 AM [facility] pO2, Arterial 198 >80 mm Hg 12/17/2024 8:31 AM [facility] SO2, Arterial 99(H) 94 - 98 % 12/17/2024 8:31 AM [facility] Base Excess, Arterial -4.2(L) -2 - 3 mmol/L 12/17/2024 8:31 AM [facility] HCO3, Arterial 22.6 22 - 26 mmol/L 12/17/2024 8:31 AM [facility] Total Hemoglobin, Arterial, Whole Blood 10.2(L) 11.2 - 15.7 g/dL 12/17/2024 8:31 AM [facility] Hematocrit, Arterial 31.0(L) 34.0 - 45.0 % 12/17/2024 8:31 AM [facility] Sodium, Arterial 144 136 - 145 mmol/L 12/17/2024 8:31 AM [facility] Potassium, Arterial 4.1 3.6 - 4.9 mmol/L 12/17/2024 8:31 AM [facility] Chloride, Whole Blood 113(H) 97 - 107 mmol/L 12/17/2024 8:31 AM [facility] Glucose, Arterial 107(H) 74 - 99 mg/dL 12/17/2024 8:31 AM [facility] Ionized Calcium, Arterial 5.1 4.6 - 5.1 mg/dL 12/17/2024 8:31 AM [facility] Lactate, Arterial 0.7 0.5 - 1.6 mmol/L 12/17/2024 8:31 AM [facility] Body Temperature 37.0 Celsius 12/17/2024 8:31 AM [facility] pH, Temp Corrected, Arterial 7.28(L) 7.31 - 7.42 12/17/2024 8:31 AM [facility] pCO2, Temp Corrected, Arterial 48 35 - 48 mm Hg 12/17/2024 8:31 AM [facility] pO2, Temp Corrected, Arterial 198 >80 mm Hg 12/17/2024 8:31 AM EDT [facility] Owner/Photographer ID Swati Burton 12/17/2024 8:31 AM EDT [facility] Blood, Arterial Whole blood specimen / Unknown 12/17/2024 7:57 AM EDT 12/17/2024 8:31 AM EDT Boris Al MD LAB POINT OF CARE TE ST DOCKED DEVICE UNSOLICITED RESULTS Final Result Performing Organization Address [facility] Co de Phone Number [facility]ALTHCARE LAB [address] [place] [address] * POCT ACT (12/17/2024 7:52 AM EDT) ACT+ (HIGH RANGE) 109 68 - 600 Seconds 12/17/2024 7:55 AM EDT [facility] LAB Owner/Photographer ID Macario Wilcox 12/17/2024 7:55 AM EDT [facility] ACT Device ID [id number] 12/17/2024 7:55 AM EDT [facility] LAB Comment 12/17/2024 7:55 AM EDT [facility] Comment: ACT performed by staff at point of care. Results are reported immediately to the physician or primary caregiver. The activated clotting time is performed on patients with diverse clinical characteristics and treatment histories. Therefore, expected values are variable and results must be interpreted in the context of each individual patient. Blood Venous blood specimen / Unknown 12/17/2024 7:52 AM EDT 12/17/2024 7:55 AM EDT us Boris Al MD LAB POINT OF CARE TE ST DOCKED DEVICE UNSOLICITED RESULTS Final Result Performing Organization Address [facility] Co de Phone Number HEALTHCARE LAB [address] LAB [address] [place] [address] * Prepare Leukocyte Reduced RBC: 2 Units (12/17/2024 7:50 AM EDT) Product Code [id number] [facility] BLOO D BANK Dispense Status Transfused BLOOD BANK Blood Expiration Date [id number] BLOOD BANK Unit Number [id number] B LOOD BANK Product Blood Type 5100 BLOOD BANK Blood Type O+ BLOOD BANK Crossmatch Compatible BLOOD BANK Product Code [id number] CH BLOO D BANK Dispense Status Transfused BLOOD BANK Blood Expiration Date [id number] BLOOD BANK Unit Number [id number] B LOOD BANK Product Blood Type 5100 BLOOD BANK Blood Type O+ BLOOD BANK Crossmatch Compatible BLOOD BANK Other Swati Burton MD BLOOD BANK PRODUCT ORDERAB LES Final Result Performing Organization Address [facility]/ZIP Co de Phone Number BLOOD BANK [address] * APTT (12/17/2024 7:23 AM EDT) aPTT 26 25 - 35 sec LAB COAGULATION METHOD 12/17/2024 7:49 AM EDT [facility] Blood Venous blood specimen / Unknown Venipuncture / Unknown 12/17/2024 7:23 AM EDT 12/17/2024 7:30 AM EDT Mo SAHA LAB BLOOD ORDERABLES Final Resu lt Performing Organization Address City/[facility]/ZIP Co de Phone Number [facility] [address] [place] [address] * Protime-INR (12/17/2024 7:23 AM EDT) Prothrombin Time 12.6 12.0 - 14.3 sec LAB COAGULATION METHOD 12/17/2024 7:49 AM EDT [facility] INR 0.9 0.9 - 1.1 LAB COAGULATION METHOD 12/17/2024 7:49 AM EDT [facility] Blood Venous blood specimen / Unknown Venipuncture / Unknown 12/17/2024 7:23 AM EDT 12/17/2024 7:30 AM EDT Narrative [facility] - 12/17/2024 7:49 AM EDT OPTIMAL INR RANGES FOR PATIENT ON ORAL ANTICOAGULANT THERAPY Prevention of venous thromboembolism INR 2.0 to 3.0 In patients with heart disease: Atrial fibrillation INR 2.0 to 3.0 Valvular heart disease INR 2.0 to 3.0 Tissue heart valves INR 2.0 to 3.0 Mechanical prosthetic valves INR 2.5 to 3.5 Prevention of recurrent AK INR 2.5 to 3.5 us Mo SAHA LAB BLOOD ORDERABLES Final Resu lt [facility] [address] [place] [address] * (ABNORMAL) Comprehensive metabolic panel (12/17/2024 7:23 AM EDT) [facility] Glucose, Plasma 96 74 - 99 mg/dL 12/17/2024 8:19 AM EDT [facility] BUN, Plasma 15 8 - 23 mg/dL 12/17/2024 8:19 AM EDT [facility] Creatinine, Plasma 0.76 0.60 - 1.10 mg/dL 12/17/2024 8:19 AM EDT [facility] BUN/Creatinine Ratio 20 12/17/2024 8:19 AM EDT [facility] Sodium, Plasma 141 136 - 145 mmol/L 12/17/2024 8:19 AM EDT [facility] Potassium, Plasma 4.1 3.6 - 4.9 mmol/L 12/17/2024 8:19 AM EDT [facility] Chloride, Plasma 109(H) 97 - 107 mmol/L 12/17/2024 8:19 AM EDT [facility] CO2, Plasma 21(L) 22 - 29 mmol/L 12/17/2024 8:19 AM EDT [facility] Anion Gap 11 6 - 16 mmol/L 12/17/2024 8:19 AM EDT [facility] Total Calcium, Plasma 9.6 8.9 - 10.2 mg/dL 12/17/2024 8:19 AM EDT [facility] Total Protein 7.7 6.3 - 7.9 g/dL 12/17/2024 8:19 AM EDT [facility] Albumin, Plasma 4.7 3.5 - 5.2 g/dL 12/17/2024 8:19 AM EDT [facility] AST, Plasma 25 10 - 35 U/L 12/17/2024 8:19 AM EDT [facility] Comment:Hemolyzed, result ma y be falsely increased. ALT, Plasma 26 10 - 35 U/L 12/17/2024 8:19 AM EDT [facility] Alkaline Phosphatase, Plasma 117 46 - 142 U/L 12/17/2024 8:19 AM EDT [facility] Total Bilirubin, Plasma <0.2(L) 0.2 - 1.1 mg/dL 12/17/2024 8:19 AM EDT [facility] eGFRcr 89.8 mL/min/1.7 3m*2 12/17/2024 8:19 AM EDT [facility] Comment:Reported eGFRcr in m L/min/1.73m2 is based the CKD-EPI 2020 equation that does not use a race coefficient. Blood Venous blood specimen / Unknown Venipuncture / Unknown 12/17/2024 7:23 AM EDT 12/17/2024 7:30 AM EDT us Mo SAHA LAB BLOOD ORDERABLES Final Resu lt [facility] [address] [place] [address] * (ABNORMAL) CBC (12/17/2024 7:23 AM EDT) WBC Count 6.43 3.70 - 10.30 10*3/uL LAB HEMATOLOGY METHOD 12/17/2024 7:49 AM EDT [facility] RBC Count 3.68(L) 3.90 - 5.20 10*6/uL LAB HEMATOLOGY METHOD 12/17/2024 7:49 AM EDT [facility] HGB 12.0 11.2 - 15.7 g/dL LAB HEMATOLOGY METHOD 12/17/2024 7:49 AM EDT [facility] HCT 37.0 34.0 - 45.0 % LAB HEMATOLOGY METHOD 12/17/2024 7:49 AM EDT [facility] Platelet Count 230 155 - 369 10*3/uL LAB HEMATOLOGY METHOD 12/17/2024 7:49 AM EDT [facility] MCV 101(H) 79 - 98 fL LAB HEMATOLOGY METHOD 12/17/2024 7:49 AM EDT [facility] MCH 32.6(H) 26.0 - 32.0 pg LAB HEMATOLOGY METHOD 12/17/2024 7:49 AM EDT [facility] MCHC 32.4 30.7 - 35.5 g/dL LAB HEMATOLOGY METHOD 12/17/2024 7:49 AM EDT [facility] RDW 13.5 11.5 - 14.5 % LAB HEMATOLOGY METHOD 12/17/2024 7:49 AM EDT [facility] MPV 11.2 8.8 - 12.5 fL LAB HEMATOLOGY METHOD 12/17/2024 7:49 AM EDT [facility] nRBC 0.0 <=0.0 per 100 WBCs LAB HEMATOLOGY METHOD 12/17/2024 7:49 AM EDT [facility] Blood Venous blood specimen / Unknown Venipuncture / Unknown 12/17/2024 7:23 AM EDT 12/17/2024 7:30 AM EDT us Mo SAHA LAB BLOOD ORDERABLES Final Resu lt [facility] [address] [place] [address] * Type and screen (12/17/2024 7:23 AM EDT) ABO/Rh O Positive 12/17/2024 5:51 AM EDT BLOOD BANK Antibody Screen Negative 12/17/2024 5:51 AM EDT BLOOD BANK Specimen Expiration 12/20/2024 23:59 12/17/2024 5:51 AM EDT BLOOD BANK Blood Venous blood specimen / Unknown Venipuncture / Unknown 12/17/2024 7:23 AM EDT 12/17/2024 7:28 AM EDT us Swati Burton MD LAB BLOOD BANK TEST ORDERA BLES Final Result Performing Organization Address City/[facility]/ZIP Co de Phone Number BLOOD BANK [address] [place] [address], * (ABNORMAL) POCT glucose meter (12/17/2024 6:08 AM EDT) POCT Glucose 106(H) 74 - 99 mg/dL 12/17/2024 6:10 AM EDT [facility] Comment:Accuracy of a glucos e result obtained from a capillary whole blood specimen relies upon adequate, non-compromised capillary blood flow. If the capillary glucose result is not consistent with the patient's clinical signs and symptoms, glucose testing should be repeated with either an arterial or venous sample on the glucometer or sent to the main labortory for testing. Comment 12/17/2024 6:10 AM EDT HEALTHCARE LAB Owner/Photographer ID Marybel Durán 12/18/19 6:10 AM EDT HEALTHCARE LAB Device ID [id number] 12/17/2024 6:10 AM EDT HEALTHCARE LAB Specimen Type POC Capillary 12/17/2024 6:10 AM EDT HEALTHCARE LAB Blood Capillary blood specimen / Unknown 12/17/2024 6:08 AM EDT 12/17/2024 6:10 AM EDT Boris Al MD LAB POINT OF CARE TE ST DOCKED DEVICE UNSOLICITED RESULTS Final Result Performing Organization Address City/State/[facility] Co de Phone Number HEALTHCARE LAB [address] [place] [phone] documented in this encounter Visit Diagnoses Diagnosis 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 Acute blood loss anemia Acute posthemorrhagic anemia Cardiac volume overload 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 HLD (hyperlipidemia) Other and unspecified hyperlipidemia Seizures (CMS/HCC) Other convulsions Lung cancer (CMS/HCC) Malignant neoplasm of bronchus and lung, unspecified site Tobacco dependence Tobacco use disorder Bipolar affective disorder (CMS/HCC) Bipolar disorder, unspecified Chronic obstructive pulmonary disease with (acute) exacerbation (CMS/HCC) Diabetes (CMS/HCC) Type II or unspecified type diabetes mellitus without mention of complication, not stated as uncontrolled Acute blood loss anemia Acute posthemorrhagic anemia Thrombocytopenia (CMS/HCC) Unspecified thrombocytopenia On mechanically assisted ventilation (CMS/HCC) Electrolyte abnormality Electrolyte and fluid disorders not elsewhere classified Anxiety Anxiety state, unspecified Cancer (CMS/HCC) Other malignant neoplasm of unspecified site Cardiac volume overload Hypertension Unspecified essential hypertension Nausea Nausea alone documented in this encounter Admitting Diagnoses Diagnosis CAD (coronary artery disease) Coronary atherosclerosis of unspecified type of vessel, soboba or graft 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 documented in this encounter Administered Medications Inactive Administered Medications - up to 3 most recent administrations Medication Order MAR Action Action Date Dose Rate Site acetaminophen (Ofirmev) injection 1,000 mg 1,000 mg, Intravenous, Once, 1 dose, On Tue12/17/24 at 1830, Routine New Bag 12/17/2024 5:51 PM EDT 1,000 mg 400 mL /hr acetaminophen (Tylenol) tablet 1,000 mg 1,000 mg, Oral, Every 8 hours, 9 doses, First dose on Tue12/18/24 at 0200, Last dose on Tue12/20/24 at 1800, Routine Given 12/18/2024 5:39 PM EDT 1,000 mg Given 12/18/2024 9:33 AM EDT 1,000 mg Given 12/18/2024 2:42 AM EDT 1,000 mg acetaminophen (Tylenol) tablet 1,000 mg 1,000 mg, Oral, Every 8 hours, 5 doses, First dose (after last modification) on Tue12/19/24 at 1000, Last dose on Tue12/20/24 at 1800, Routine Given 12/20/2024 5:26 PM EDT 1,000 mg Given 12/20/2024 9:05 AM EDT 1,000 mg Given 12/19/2024 5:12 PM EDT 1,000 mg acetaminophen (Tylenol) tablet 650 mg 650 mg, Oral, Every 4 hours PRN, Starting on Tue12/21/24 at 0245, Until Tue12/21/24 at 1401, Routine, fever, headaches, mild pain albumin human 5 % infusion 250 mL 250 mL, Intravenous, Every 30 min PRN, Starting on Tue12/17/24 at 1505, Until Tue12/18/24 at 1504, Routine, Recovery(Phase II-Outpatient)/On Unit(Inpatient), fluid resuscitation New Bag 12/17/2024 3:52 PM EDT 250 mL albuterol 108 (90 Base) MCG/ACT inhaler 2 puff 2 puff, Inhalation, Every 6 hours PRN, Starting on Tue12/18/24 at 1318, Until Tue12/21/24 at 1401, Routine, wheezing aspirin chewable tablet 81 mg 81 mg, Oral, Daily, First dose on Tue12/18/24 at 0900, Until Discontinued, Routine, Recovery(Phase II-Outpatient)/On Unit(Inpatient) Given 12/21/2024 8:20 AM EDT 81 mg Given 12/20/2024 9:06 AM EDT 81 mg Given 12/19/2024 8:36 AM EDT 81 mg atorvastatin (Lipitor) tablet 80 mg 80 mg, Oral, Nightly, First dose on Tue12/17/24 at 2100, Until Discontinued, Routine, Recovery(Phase II-Outpatient)/On Unit(Inpatient) Given 12/20/2024 9:00 PM EDT 80 mg Given 12/19/2024 8:50 PM EDT 80 mg Given 12/18/2024 8:11 PM EDT 80 mg calcium gluconate 1 g in sodium chloride 0.9% 100 mL IVPB (vial adapter required) 1 g, Intravenous, Once, 1 dose, On Tue12/17/24 at 1845, at 240 mL/hr, Administer over 30 Minutes, Routine New Bag 12/17/2024 6:31 PM EDT 1 g 240 mL/hr calcium gluconate 1 g in sodium chloride 0.9% 100 mL IVPB (vial adapter required) 1 g, Intravenous, Once, 1 dose, On Tue12/17/24 at 2200, at 240 mL/hr, Administer over 30 Minutes, Routine New Bag 12/17/2024 10:07 PM EDT 1 g 240 mL/hr ceFAZolin (Ancef) injection 2 g 2 g, Intravenous, Every 8 hours, 3 doses, First dose on Tue12/17/24 at 2000, Last dose on Tue12/18/24 at 1200, Routine, Recovery(Phase II-Outpatient)/On Unit(Inpatient) Given 12/18/2024 11:33 AM EDT 2 g Given 12/18/2024 5:00 AM EDT 2 g Given 12/17/2024 7:40 PM EDT 2 g clevidipine (Cleviprex) 0.5 MG/ML infusion 2 mg/hr (4 mL/hr), Intravenous, Continuous, Starting on Tue12/17/24 at 1930, Until Tue12/17/24 at 2309, Routine Rate/Dose Change 12/17/2024 7:12 PM EDT 2 mg/hr 4 mL/hr Rate/Dose Change 12/17/2024 7:00 PM EDT 4 mg/hr 8 mL/hr Rate/Dose Change 12/17/2024 6:57 PM EDT 4 mg/hr 8 mL/hr clevidipine (Cleviprex) 0.5 MG/ML infusion 1-32 mg/hr (2-64 mL/hr), Intravenous, Titrated, Starting on Tue12/18/24 at 0000, Until Tue12/18/24 at 1244, STATIndications:Hypertension Rate/Dose Change 12/17/2024 11:48 PM EDT 3 mg/hr 6 mL/hr Restarted 12/17/2024 11:30 PM EDT 2 mg/hr 4 mL/hr dextrose 10 % (D10W) bolus 125 mL 125 mL, Intravenous, Every 15 min PRN, Starting on Tue12/17/24 at 1552, Until Tue12/18/24 at 1247, Administer over 15 Minutes, Routine, low blood sugar BG 51-89 mg/dL New Bag 12/17/2024 4:30 PM EDT 125 mL 500 mL/hr docusate sodium (Colace) capsule 100 mg 100 mg, Oral, 2 times daily, First dose on Tue12/17/24 at 2100, Until Discontinued, Routine, Recovery(Phase II-Outpatient)/On Unit(Inpatient) Given 12/19/2024 8:51 PM EDT 100 mg Given 12/19/2024 8:38 AM EDT 100 mg Given 12/18/2024 8:11 PM EDT 100 mg enoxaparin (Lovenox) syringe 40 mg 40 mg, Subcutaneous, Daily, First dose on Tue12/18/24 at 0900, Until Discontinued, Routine Given 12/21/2024 8:13 AM EDT 40 mg Right Lower Abdomen Given 12/20/2024 9:04 AM EDT 40 mg Le ft Lower Abdomen Given 12/19/2024 8:36 AM EDT 40 mg Le ft Lower Abdomen EPINEPHrine infusion 8 mg in NS 250 mL (0.032 mg/mL) (compounding pharmacy premix) 0-0.08 mcg/kg/min 69.9 kg (0-10.485 mL/hr, rounded to 0-10.49 mL/hr), 0.032 mg/mL, Intravenous, Titrated, Starting on Tue12/17/24 at 1645, Until Tue12/17/24 at 1848, STAT Rate/Dose Verify 12/17/2024 5:00 PM EDT 0.02 mcg/kg/min 2.62 mL/hr Continued from OR 12/17/2024 4:00 PM EDT 0.02 mcg/kg/min 2 .62 mL/hr furosemide (Lasix) injection 40 mg 40 mg, Intravenous, Once, 1 dose, On Tue12/17/24 at 1945, Routine Given 12/17/2024 8:03 PM EDT 40 mg furosemide (Lasix) injection 40 mg 40 mg, Intravenous, Once, 1 dose, On Tue12/19/24 at 1345, Routine Given 12/19/2024 1:21 PM EDT 40 mg haloperidol lactate (Haldol) injection 0.5 mg 0.5 mg, Intravenous, Once as needed, 1 dose, Starting on Tue12/18/24 at 1044, Until Tue12/18/24 at 1053, Routine, nausea, vomiting Given 12/18/2024 10:53 AM EDT 0.5 mg heparin flush 10 UNIT/ML injection 50 Units 50 Units, Intracatheter, As needed, Starting on Tue12/19/24 at 1804, Until Tue12/21/24 at 1401, Routine, line care, As needed for line care, Maintain Implantable Vascular Port IV patency HYDROmorphone (Dilaudid) injection 0.25 mg 0.25 mg, Intravenous, Every 2 hour PRN, Starting on Tue12/17/24 at 1548, Until Tue12/19/24 at 0951, Routine, mild - moderate pain Given 12/18/2024 5:39 PM EDT 0.25 mg Given 12/18/2024 1:26 PM EDT 0.25 mg Given 12/18/2024 8:38 AM EDT 0.25 mg HYDROmorphone (Dilaudid) injection 0.25 mg 0.25 mg, Intravenous, Every 2 hour PRN, Starting on Tue12/19/24 at 0949, Until Tue12/21/24 at 0949, Routine, severe pain, if oxycodone ineffective after 45 minutes, if patient has no enteral access or if requested by provider for bedside procedure Given 12/19/2024 1:25 PM EDT 0.25 mg HYDROmorphone (Dilaudid) injection 0.5 mg 0.5 mg, Intravenous, Every 2 hour PRN, Starting on Tue12/17/24 at 1548, Until Tue12/19/24 at 0951, Routine, severe pain Given 12/19/2024 8:28 AM EDT 0.5 mg Given 12/19/2024 5:48 AM EDT 0.5 mg Given 12/19/2024 1:50 AM EDT 0.5 mg ipratropium-albuterol (Duo-Neb) 0.5-2.5 mg/3 mL nebulizer solution 3 mL 3 mL, Nebulization, 4 times daily PRN, Starting on Tue12/17/24 at 1505, Until Tue12/17/24 at 1656, Routine, Recovery(Phase II-Outpatient)/On Unit(Inpatient), wheezing, shortness of breath Given 12/17/2024 4: 54 PM EDT 3 mL ipratropium-albuterol (Duo-Neb) 0.5-2.5 mg/3 mL nebulizer solution 3 mL 3 mL, Nebulization, Every 4 hours, First dose (after last modification) on Tue12/17/24 at 1745, Until Discontinued, Routine, Recovery(Phase II-Outpatient)/On Unit(Inpatient) Given 12/17/2024 8:01 PM EDT 3 mL ipratropium-albuterol (Duo-Neb) 0.5-2.5 mg/3 mL nebulizer solution 3 mL 3 mL, Nebulization, Every 4 hours, First dose (after last modification) on Tue12/18/24 at 0000, Until Discontinued, Routine, Recovery(Phase II-Outpatient)/On Unit(Inpatient) Given 12/18/2024 8:16 AM EDT 3 mL Given 12/18/2024 3:39 AM EDT 3 mL Given 12/17/2024 11:48 PM EDT 3 mL lidocaine (Lidoderm) 5 % patch 1 patch 1 patch, Apply externally, Every 24 hours, First dose on Tue12/17/24 at 1645, Until Discontinued, Administer over 12 Hours, Routine Medication Applied 12/20/2024 4:30 PM EDT 1 patch Chest Medication Applied 12/17/2024 6:10 PM EDT 1 patch Chest magnesium sulfate IVPB 2 g 2 g, Intravenous, Once, 1 dose, On Tue12/20/24 at 0700, Routine New Bag 12/20/2024 6:16 AM EDT 2 g 25 mL/hr magnesium sulfate IVPB 2 g 2 g, Intravenous, Once, 1 dose, On Tue12/21/24 at 0615, Routine New Bag 12/21/2024 5:33 AM EDT 2 g 25 mL/hr methocarbamol (Robaxin) tablet 500 mg 500 mg, Oral, 4 times daily, First dose on Tue12/17/24 at 1800, Until Discontinued, Routine Given 12/21/2024 8:20 AM EDT 500 mg Given 12/20/2024 8:51 PM EDT 500 mg Given 12/20/2024 5:26 PM EDT 500 mg metoclopramide (Reglan) injection 10 mg 10 mg, Intravenous, Every 6 hours PRN, Starting on Tue12/19/24 at 1245, Until Tue12/20/24 at 0857, Routine, nausea, vomiting Given 12/19/2024 1:24 PM EDT 1 0 mg metoclopramide (Reglan) injection 5 mg 5 mg, Intravenous, 3 times daily, 3 doses, First dose (after last modification) on Tue12/18/24 at 1145, Last dose on Tue12/18/24 at 2100, Routine Given 12/18/2024 8:11 PM EDT 5 mg Given 12/18/2024 3:25 PM EDT 5 mg Given 12/18/2024 11:33 AM EDT 5 mg metoclopramide (Reglan) tablet 10 mg 10 mg, Oral, Every 6 hours PRN, Starting on Tue12/19/24 at 1245, Until Tue12/20/24 at 0858, Routine, nausea, vomiting Given 12/20/2024 7:00 AM EDT 10 mg Given 12/19/2024 8:51 PM EDT 10 mg metoclopramide (Reglan) tablet 10 mg 10 mg, Oral, Every 6 hours PRN, Starting on Tue12/20/24 at 0857, Until Tue12/21/24 at 1401, Routine, nausea, vomiting, use if ondansetron is ineffective after 30 minutes Given 12/21/2024 8:14 AM EDT 10 mg metOLazone (Zaroxolyn) tablet 5 mg 5 mg, Oral, Once, 1 dose, On Tue12/17/24 at 1945, Routine Given 12/17/2024 7:37 PM EDT 5 mg metoprolol tartrate (Lopressor) split tablet 12.5 mg 12.5 mg, Oral, 2 times daily, First dose on Tue12/18/24 at 0900, Until Discontinued, Routine Given 12/18/2024 8:56 AM EDT 12.5 mg metoprolol tartrate (Lopressor) tablet 25 mg 25 mg, Oral, 2 times daily, First dose (after last modification) on Tue12/18/24 at 2100, Until Discontinued, Routine Given 12/21/2024 8:20 AM EDT 25 mg Given 12/20/2024 8:52 PM EDT 25 mg Given 12/20/2024 9:05 AM EDT 25 mg mupirocin (Bactroban) 2 % ointment 1 Application Each Nostril, 2 times daily, 8 doses, First dose on Tue12/17/24 at 2100, Last dose on Tue12/21/24 at 0900, Routine Given 12/19/2024 8:52 PM EDT 1 Application Given 12/19/2024 8:37 AM EDT 1 Application Given 12/18/2024 8:11 PM EDT 1 Application NIFEdipine XL (Procardia XL) 24 hr tablet 30 mg 30 mg, Oral, Daily, First dose on Tue12/18/24 at 1245, Until Discontinued, STAT Given 12/21/2024 8:20 AM EDT 30 mg Given 12/20/2024 9:05 AM EDT 30 mg Given 12/19/2024 8:39 AM EDT 30 mg nitroglycerin (Tridil) 50 mg in 250 mL D5W (200 mcg/mL) infusion 0-2 mcg/kg/min 69.9 kg (0-41.94 mL/hr), 200 mcg/mL, Intravenous, Titrated, Starting on Tue12/17/24 at 1800, Until Tue12/18/24 at 1244, STAT Rate/Dose Change 12/18/2024 12:00 AM EDT 0.4 mcg/kg/min 8.39 mL/hr Rate/Dose Change 12/17/2024 11:45 PM EDT 0.6 mcg/kg/min 12 .58 mL/hr Rate/Dose Change 12/17/2024 11:30 PM EDT 0.8 mcg/kg/min 16 .78 mL/hr ondansetron (Zofran) injection 4 mg 4 mg, Intravenous, Every 6 hours PRN, Starting on Tue12/17/24 at 1505, Until Tue12/21/24 at 1401, Routine, Recovery(Phase II-Outpatient)/On Unit(Inpatient), nausea, vomiting Given 12/21/2024 5:57 AM EDT 4 mg Given 12/20/2024 1:40 PM EDT 4 mg Given 12/19/2024 8:38 AM EDT 4 mg oxyCODONE (Roxicodone) immediate release tablet 10 mg 10 mg, Oral, Every 4 hours PRN, Starting on Tue12/17/24 at 1549, Until Tue12/21/24 at 1401, Routine, severe pain Given 12/20/2024 8:50 PM EDT 10 mg Given 12/19/2024 11:43 PM EDT 10 mg Given 12/19/2024 5:17 PM EDT 10 mg oxyCODONE (Roxicodone) immediate release tablet 5 mg 5 mg, Oral, Every 4 hours PRN, Starting on Tue12/17/24 at 1549, Until Tue12/21/24 at 1401, Routine, moderate pain Given 12/21/2024 10:27 AM EDT 5 mg Given 12/21/2024 5:32 AM EDT 5 mg Given 12/21/2024 1:41 AM EDT 5 mg phosphorus (K Phos Neutral) tablet 1 tablet 1 tablet, Oral, Every 8 hours, 3 doses, First dose on Tue12/20/24 at 0845, Last dose on Tue12/21/24 at 0045, Routine Given 12/20/2024 9:06 AM EDT 1 table t polyethylene glycol (Miralax) packet 17 g 17 g, Oral, Daily, First dose on Tue12/18/24 at 0900, Until Discontinued, Routine, Recovery(Phase II-Outpatient)/On Unit(Inpatient) Given 12/18/2024 8:56 AM EDT 17 g potassium chloride CR (Klor-Con) ER tablet 20 mEq 20 mEq, Oral, Once, 1 dose, On Tue12/20/24 at 1500, Routine Given 12/20/2024 4:30 PM EDT 20 mEq potassium chloride CR (Klor-Con) ER tablet 20 mEq 20 mEq, Oral, Once, 1 dose, On Tue12/21/24 at 0730, Routine Given 12/21/2024 9:20 AM EDT 20 mEq potassium chloride CR (Klor-Con) ER tablet 40 mEq 40 mEq, Oral, Once, 1 dose, On Tue12/17/24 at 1930, Routine Given 12/17/2024 7:39 PM EDT 40 mEq potassium chloride CR (Klor-Con) ER tablet 40 mEq 40 mEq, Oral, Every 4 hours, 2 doses, First dose on Tue12/20/24 at 0700, Last dose on Tue12/20/24 at 1100, Routine Given 12/20/2024 12:19 PM EDT 40 mEq Given 12/20/2024 9:05 AM EDT 40 mEq potassium chloride CR (Klor-Con) ER tablet 40 mEq 40 mEq, Oral, Once, 1 dose, On Tue12/21/24 at 0615, Routine Given 12/21/2024 5:32 AM EDT 40 mEq Povidone-Iodine 5 % swab solution 1 Application Nasal, Once, 1 dose, On Tue12/17/24 at 0700, Routine Given 12/17/2024 6:37 AM EDT 1 Application pregabalin (Lyrica) capsule 50 mg 50 mg, Oral, 2 times daily, First dose on Tue12/18/24 at 0945, Until Discontinued, Routine Given 12/21/2024 9:19 AM EDT 50 mg Given 12/20/2024 8:53 PM EDT 50 mg Given 12/20/2024 9:06 AM EDT 50 mg QUEtiapine (SEROquel) tablet 100 mg 100 mg, Oral, Nightly, First dose on Tue12/19/24 at 2100, Until Discontinued, Routine Given 12/19/2024 8:50 PM EDT 100 mg QUEtiapine (SEROquel) tablet 200 mg 200 mg, Oral, Nightly, First dose (after last modification) on Tue12/20/24 at 2100, Until Discontinued, Routine Given 12/20/2024 8:50 PM EDT 200 mg rOPINIRole (Requip) tablet 5 mg 5 mg, Oral, Nightly, First dose on Tue12/18/24 at 2100, Until Discontinued, RoutineIndications:Restless Leg Syndrome Given 12/20/2024 8:51 PM EDT 5 m g Given 12/19/2024 8:51 PM EDT 5 mg Given 12/18/2024 8:11 PM EDT 5 mg senna (Senokot) tablet 17.2 mg 17.2 mg, Oral, Nightly, First dose on Tue12/17/24 at 2100, Until Discontinued, Routine, Recovery(Phase II-Outpatient)/On Unit(Inpatient) Given 12/19/2024 8:51 PM EDT 17.2 mg Given 12/18/2024 8:11 PM EDT 17.2 mg Given 12/17/2024 8:39 PM EDT 17.2 mg simethicone (Mylicon) chewable tablet 80 mg 80 mg, Oral, 4 times daily, 8 doses, First dose on Tue12/18/24 at 0900, Last dose on Tue12/19/24 at 2200, Routine Given 12/19/2024 8:52 PM EDT 80 mg Given 12/19/2024 5:12 PM EDT 80 mg Given 12/19/2024 1:21 PM EDT 80 mg sodium chloride 0.9 % flush 10 mL 10 mL, Intravenous, Every 12 hours, First dose on Tue12/17/24 at 1915, Until Discontinued, Routine Given 12/21/2024 9:19 AM EDT 10 mL Given 12/20/2024 8:53 PM EDT 10 mL Given 12/20/2024 9:12 AM EDT 10 mL sodium chloride 0.9 % flush 10 mL 10 mL, Intravenous, Every 1 hour PRN, Starting on Tue12/17/24 at 1827, Until Tue12/21/24 at 1401, Routine, Flush Before and After EVERY dose of medication. sodium chloride 0.9 % flush 20 mL 20 mL, Intravenous, Every 1 hour PRN, Starting on Tue12/17/24 at 1827, Until Tue12/21/24 at 1401, Routine, After blood draws and if any blood seen in tubing. sodium phosphates 45 mmol in sodium chloride 0.9 % 250 mL IVPB 45 mmol, Intravenous, Once, 1 dose, On Tue12/17/24 at 1745, Routine Rate/Dose Change 12/17/2024 11:00 PM EDT 48.3 mL/hr Rate/Dose Change 12/17/2024 10:00 PM EDT 48.3 m L/hr Rate/Dose Verify 12/17/2024 9:00 PM EDT 48.3 mL /hr sugammadex (Bridion) 100 MG/ML injection 200 mg 200 mg, Intravenous, Once, 1 dose, On Tue12/17/24 at 1645, Routine Given 12/17/2024 5:05 PM EDT 200 mg Tiotropium Dorothy Monohydrate (Spiriva Respimat) 2.5 MCG/ACT inhaler 2 puff 2 puff, Inhalation, Daily, First dose on Tue12/19/24 at 0900, Until Discontinued, Routine Given 12/21/2024 8:12 AM EDT 2 puffs Given 12/20/2024 9:45 AM EDT 2 puffs zonisamide (Zonegran) capsule 300 mg 300 mg, Oral, Daily, First dose on Tue12/18/24 at 0945, Until Discontinued, Routine Given 12/21/2024 8:14 AM EDT 300 mg Given 12/20/2024 9:06 AM EDT 300 mg Given 12/19/2024 8:52 AM EDT 300 mg documented in this encounter Active and Recently Administered Medications Times are shown in EDT. Scheduled Medication Order 12/19/2024 12/20/2024 12/21/2024 acetaminophen (Tylenol) tablet 1,000 mg(Linked Group 1) 1,000 mg, Oral, Every 8 hours, 5 doses, First dose (after last modification) on Tue12/19/24 at 1000, Last dose on Tue12/20/24 at 1800, Routine 1036 (Given - Provider: Bouchra Rees RN)1712 (Given - Provider: Ritika Augustin RN) 0441 (Not Given - Provider: Yovana Asif RN - Reason: Patient/family refused)0905 (Given - Provider: April Soliman)172 (Given - Provider: April Soliman) aspirin chewable tablet 81 mg 81 mg, Oral, Daily, First dose on Tue12/18/24 at 0900, Until Discontinued, Routine, Recovery(Phase II-Outpatient)/On Unit(Inpatient) 0836 (Given - Provider: Bouchra Rees RN) 0906 (Given - Provider: April Soliman) 0820 (Given - Provider: Kael Siddiqi, GIOVANNY) atorvastatin (Lipitor) tablet 80 mg 80 mg, Oral, Nightly, First dose on Tue12/17/24 at 2100, Until Discontinued, Routine, Recovery(Phase II-Outpatient)/On Unit(Inpatient) 2049 (Given - Provider: Yovana Asif RN) 2099 (Given - Provider: Yovana Asif, GIOVANNY) docusate sodium (Colace) capsule 100 mg 100 mg, Oral, 2 times daily, First dose on Tue12/17/24 at 2100, Until Discontinued, Routine, Recovery(Phase II-Outpatient)/On Unit(Inpatient) 0838 (Given - Provider: Bouchra Rees RN)2050 (Given - Provider: Yovana Asif RN) 09 (Not Given - Provider: April Soliman - Reason: Patient/family refused)2051 (Not Given - Provider: Yovana Asif RN - Reason: Patient/family refused) 08 (Not Given - Provider: Kael Siddiqi RN - Reason: Patient/family refused - Comment: Pt is having regular BMs) enoxaparin (Lovenox) syringe 40 mg 40 mg, Subcutaneous, Daily, First dose on Tue12/18/24 at 0900, Until Discontinued, Routine 0836 (Given - Provider: Bouchra Rees RN) 0904 (Given - Provider: April Soliman) 0813 (Given - Provider: Kael Siddiqi, GIOVANNY) furosemide (Lasix) injection 40 mg (COMPLETED) 40 mg, Intravenous, Once, 1 dose, On Tue12/19/24 at 1345, Routine 1321 (Given - Provider: Bouchra Rees RN) lidocaine (Lidoderm) 5 % patch 1 patch 1 patch, Apply externally, Every 24 hours, First dose on Tue12/17/24 at 1645, Until Discontinued, Administer over 12 Hours, Routine 1638 (Not Given - Provider: Bouchra Rees RN - Reason: Patient/family refused) 1630 (Medication Applied - Provider: April Soliman) 0338 (Medication Removed - Provider: Yovana Asif, GIOVANNY) magnesium sulfate IVPB 2 g (COMPLETED) 2 g, Intravenous, Once, 1 dose, On Tue12/20/24 at 0700, Routine 0616 (New Bag - Provider: Yovana Asif, GIOVANNY) magnesium sulfate IVPB 2 g (COMPLETED) 2 g, Intravenous, Once, 1 dose, On Tue12/21/24 at 0615, Routine 0533 (New Bag - Provider: Yovana Asif RN) methocarbamol (Robaxin) tablet 500 mg 500 mg, Oral, 4 times daily, First dose on Tue12/17/24 at 1800, Until Discontinued, Routine 0836 (Given - Provider: Bouchra Rees RN)1322 (Given - Provider: Bouchra Rees RN)1712 (Given - Provider: Ritika Augustin RN)2052 (Given - Provider: Yovana Asif RN) 0906 (Given - Provider: April Soliman)1340 (Given - Provider: Lena Nicolas RN)1726 (Given - Provider: April Soliman)2051 (Given - Provider: Yovana Asif, GIOVANNY) 0820 (Given - Provider: Kael Siddiqi RN)1400 (Canceled Entry - Provider: Automatic Discharge Provider - Comment: Automatically canceled at discontinue of medication order) metoprolol tartrate (Lopressor) tablet 25 mg 25 mg, Oral, 2 times daily, First dose (after last modification) on Tue12/18/24 at 2100, Until Discontinued, Routine 0837 (Given - Provider: Bouchra Rees RN)2050 (Given - Provider: Yovana Asif RN) 0905 (Given - Provider: April Soliman)205 (Given - Provider: Yovana Asif RN) 0820 (Given - Provider: Kael Siddiqi RN) mupirocin (Bactroban) 2 % ointment 1 Application (CANCELED) Each Nostril, 2 times daily, 8 doses, First dose on Tue12/17/24 at 2100, Last dose on Tue12/21/24 at 0900, Routine 0837 (Given - Provider: Bouchra Rees RN)2052 (Given - Provider: Yovana Asif RN) 0904 (Not Given - Provider: April Soliman - Reason: Patient/family refused) NIFEdipine XL (Procardia XL) 24 hr tablet 30 mg 30 mg, Oral, Daily, First dose on Tue12/18/24 at 1245, Until Discontinued, STAT 0839 (Given - Provider: Bouchra Rees RN) 0905 (Given - Provider: April Soliman) 0820 (Given - Provider: Kael Siddiqi, GIOVANNY) phosphorus (K Phos Neutral) tablet 1 tablet (CANCELED) 1 tablet, Oral, Every 8 hours, 3 doses, First dose on Tue12/20/24 at 0845, Last dose on Tue12/21/24 at 0045, Routine 0906 (Given - Provider: April Soliman) polyethylene glycol (Miralax) packet 17 g 17 g, Oral, Daily, First dose on Tue12/18/24 at 0900, Until Discontinued, Routine, Recovery(Phase II-Outpatient)/On Unit(Inpatient) 0839 (Not Given - Provider: Bouchra Rees RN - Reason: Patient/family refused) 0904 (Not Given - Provider: April Soliman - Reason: Patient/family refused) 0824 (Not Given - Provider: Kael Siddiqi RN - Reason: Patient/family refused - Comment: Pt is having regular BMs) potassium chloride CR (Klor-Con) ER tablet 20 mEq (COMPLETED)(Linked Group 2) 20 mEq, Oral, Once, 1 dose, On Tue12/20/24 at 1500, Routine 1630 (Given - Provider: April Soliman) potassium chloride CR (Klor-Con) ER tablet 20 mEq (COMPLETED)(Linked Group 3) 20 mEq, Oral, Once, 1 dose, On Tue12/21/24 at 0730, Routine 0920 (Given - Provid er: Kael Siddiqi RN) potassium chloride CR (Klor-Con) ER tablet 40 mEq (COMPLETED)(Linked Group 2) 40 mEq, Oral, Every 4 hours, 2 doses, First dose on Tue12/20/24 at 0700, Last dose on Tue12/20/24 at 1100, Routine 0905 (Given - Provider: April Soliman)1219 (Given - Provider: April Soliman) potassium chloride CR (Klor-Con) ER tablet 40 mEq (COMPLETED)(Linked Group 3) 40 mEq, Oral, Once, 1 dose, On Tue12/21/24 at 0615, Routine 0532 (Given - Provid er: Yovana Asif RN) pregabalin (Lyrica) capsule 50 mg 50 mg, Oral, 2 times daily, First dose on Tue12/18/24 at 0945, Until Discontinued, Routine 835 (Given - Provider: Bouchra Rees RN)2052 (Given - Provider: Yovana Asif RN) 905 (Given - Provider: April Soliman)2052 (Given - Provider: Yovana Asif RN) 09 (Given - Provider: Kael Siddiqi RN) QUEtiapine (SEROquel) tablet 100 mg (CANCELED) 100 mg, Oral, Nightly, First dose on Tue12/19/24 at 2100, Until Discontinued, Routine 2049 (Given - Provider: Yovana Asif RN) QUEtiapine (SEROquel) tablet 200 mg 200 mg, Oral, Nightly, First dose (after last modification) on Tue12/20/24 at 2100, Until Discontinued, Routine 2049 (Given - Provider: Yovana Asif RN) rOPINIRole (Requip) tablet 5 mg 5 mg, Oral, Nightly, First dose on Tue12/18/24 at 2100, Until Discontinued, Routine 2050 (Given - Provider: Yovana Asif RN) 2050 (Given - Provider: Yovana Asif RN) senna (Senokot) tablet 17.2 mg 17.2 mg, Oral, Nightly, First dose on Tue12/17/24 at 2100, Until Discontinued, Routine, Recovery(Phase II-Outpatient)/On Unit(Inpatient) 2050 (Given - Provider: Yovana Asif RN) 2052 (Not Given - Provider: Yovana Asif RN - Reason: Patient/family refused) simethicone (Mylicon) chewable tablet 80 mg (COMPLETED) 80 mg, Oral, 4 times daily, 8 doses, First dose on Tue12/18/24 at 0900, Last dose on Tue12/19/24 at 2200, Routine 0836 (Given - Provider: Bouchra Rees RN)1321 (Given - Provider: Bouchra Rees RN)1711 (Given - Provider: Ritika Augustin RN)2051 (Given - Provider: Yovana Asif, GIOVANNY) sodium chloride 0.9 % flush 10 mL 10 mL, Intravenous, Every 12 hours, First dose on Tue12/17/24 at 1915, Until Discontinued, Routine 0629 (Given - Provider: Lela Khan)2051 (Given - Provider: Yovana Asif RN) 09 (Given - Provider: April Soliman)2052 (Given - Provider: Yovana Asif RN) 09 (Given - Provider: Kael Siddiqi, GIOVANNY) Tiotropium Dorothy Monohydrate (Spiriva Respimat) 2.5 MCG/ACT inhaler 2 puff 2 puff, Inhalation, Daily, First dose on Tue12/19/24 at 0900, Until Discontinued, Routine 0910 (Not Given - Provider: Beatriz Rees - Reason: Hold for condition: must add comment - Comment: RT in code x3) 0945 (Given - Provider: April Soliman) 0812 (Given - Provider: Kael Siddiqi, GIOVANNY) zonisamide (Zonegran) capsule 300 mg 300 mg, Oral, Daily, First dose on Tue12/18/24 at 0945, Until Discontinued, Routine 0852 (Given - Provider: oBuchra Rees RN) 0906 (Given - Provider: April Soliman) 0814 (Given - Provider: Kael Siddiqi RN) PRN Medication Order 12/19/2024 12/20/2024 12/21/2024 acetaminophen (Tylenol) tablet 650 mg(Linked Group 1) 650 mg, Oral, Every 4 hours PRN, Starting on Tue12/21/24 at 0245, Until Tue12/21/24 at 1401, Routine, fever, headaches, mild pain albuterol 108 (90 Base) MCG/ACT inhaler 2 puff 2 puff, Inhalation, Every 6 hours PRN, Starting on Tue12/18/24 at 1318, Until Tue12/21/24 at 1401, Routine, wheezing heparin flush 10 UNIT/ML injection 50 Units 50 Units, Intracatheter, As needed, Starting on Tue12/19/24 at 1804, Until Tue12/21/24 at 1401, Routine, line care, As needed for line care, Maintain Implantable Vascular Port IV patency HYDROmorphone (Dilaudid) injection 0.25 mg (CANCELED) 0.25 mg, Intravenous, Every 2 hour PRN, Starting on Tue12/19/24 at 0949, Until Tue12/21/24 at 0949, Routine, severe pain, if oxycodone ineffective after 45 minutes, if patient has no enteral access or if requested by provider for bedside procedure 1325 (Given - Provider: Bouchra Rees RN) HYDROmorphone (Dilaudid) injection 0.5 mg (CANCELED)(Linked Group 4) 0.5 mg, Intravenous, Every 2 hour PRN, Starting on Tue12/17/24 at 1548, Until Tue12/19/24 at 0951, Routine, severe pain 0150 (Given - Provider: Lela Khan)0548 (Given - Provider: Lela Khan)0828 (Given - Provider: Bouchra Rees RN) metoclopramide (Reglan) injection 10 mg (CANCELED) 10 mg, Intravenous, Every 6 hours PRN, Starting on Tue12/19/24 at 1245, Until Tue12/20/24 at 0857, Routine, nausea, vomiting 1321 (See Alternative - Provider: Bouchra Rees RN)1324 (Given - Provider: Bouchra Rees RN)2051 (See Alternative - Provider: Yovana Asif, GIOVANNY) 0700 (See Alternative - Provider: Yovana Asif, GIOVANNY) metoclopramide (Reglan) tablet 10 mg (CANCELED) 10 mg, Oral, Every 6 hours PRN, Starting on Tue12/19/24 at 1245, Until Tue12/20/24 at 0858, Routine, nausea, vomiting 1321 (Not Given - Provider: Bouchra Rees RN - Reason: Patient/family refused)1324 (See Alternative - Provider: Bouchra Rees RN)2051 (Given - Provider: Yovana Asif, GIOVANNY) 0700 (Given - Provider: Yovana Asif, GIOVANNY) metoclopramide (Reglan) tablet 10 mg(Linked Group 5) 10 mg, Oral, Every 6 hours PRN, Starting on Sharri 12/20/24 at 0857, Until Tue12/21/24 at 1401, Routine, nausea, vomiting, use if ondansetron is ineffective after 30 minutes 0814 (Given - Provider: Kael Siddiqi RN) ondansetron (Zofran) injection 4 mg 4 mg, Intravenous, Every 6 hours PRN, Starting on 12/17/24 at 1505, Until Tue12/21/24 at 1401, Routine, Recovery(Phase II-Outpatient)/On Unit(Inpatient), nausea, vomiting 0150 (Given - Provider: Lela Khan)0838 (Given - Provider: Bouchra Rees RN) 1340 (Given - Provider: Lena Nicolas, GIOVANNY) 0557 (Given - Provider: Yovana Asif, GIOVANNY) oxyCODONE (Roxicodone) immediate release tablet 10 mg(Linked Group 6) 10 mg, Oral, Every 4 hours PRN, Starting on 12/17/24 at 1549, Until Tue12/21/24 at 1401, Routine, severe pain 0410 (Given - Provider: Lela Khan)1037 (Given - Provider: Bouchra Rees RN)1717 (Given - Provider: Ritika Augustin, GIOVANNY)2343 (Given - Provider: Yovana Asif, GIOVANNY) 0554 (See Alternative - Provider: Yovana Asif, GIOVANNY)0950 (See Alternative - Provider: April Soliman)1630 (See Alternative - Provider: April Soliman)2050 (Given - Provider: Yovana Asif, GIOVANNY) 0141 (See Alternative - Provider: Yovana Asif, GIOVANNY)0532 (See Alternative - Provider: Yovana C Asif, RN)1027 (See Alternative - Provider: Kael Siddiqi, GIOVANNY) oxyCODONE (Roxicodone) immediate release tablet 5 mg(Linked Group 6) 5 mg, Oral, Every 4 hours PRN, Starting on Tue12/17/24 at 1549, Until Tue12/21/24 at 1401, Routine, moderate pain 0410 (See Alternative - Provider: Lela Khan)1037 (See Alternative - Provider: Bouchra Rees RN)1717 (See Alternative - Provider: Ritika Augustin RN)2343 (See Alternative - Provider: Yovana Asif RN) 0554 (Given - Provider: Yovana Asif RN)0950 (Given - Provider: April Soliman)1630 (Given - Provider: April Soliman)2050 (See Alternative - Provider: Yovana Asif RN) 0141 (Given - Provider: Yovana Asif RN)0532 (Given - Provider: Yovana Asif RN)1027 (Given - Provider: Kael Siddiqi RN) sodium chloride 0.9 % flush 10 mL 10 mL, Intravenous, Every 1 hour PRN, Starting on Tue12/17/24 at 1827, Until Tue12/21/24 at 1401, Routine, Flush Before and After EVERY dose of medication. sodium chloride 0.9 % flush 20 mL 20 mL, Intravenous, Every 1 hour PRN, Starting on Tue12/17/24 at 1827, Until Tue12/21/24 at 1401, Routine, After blood draws and if any blood seen in tubing. Linked Groups Order Group 1: acetaminophen (Tylenol) tablet 1,000 mgJump to med 1,000 mg, Oral, Every 8 hours, 5 doses, First dose (after last modification) on Tue12/19/24 at 1000, Last dose on Tue12/20/24 at 1800, Routine Followed by acetaminophen (Tylenol) tablet 650 mgJump to med 650 mg, Oral, Every 4 hours PRN, Starting on Tue12/21/24 at 0245, Until Tue12/21/24 at 1401, Routine, fever, headaches, mild pain Group 2: potassium chloride CR (Klor-Con) ER tablet 40 mEq (COMPLETED)Jump to med 40 mEq, Oral, Every 4 hours, 2 doses, First dose on Tue12/20/24 at 0700, Last dose on Tue12/20/24 at 1100, Routine Followed by potassium chloride CR (Klor-Con) ER tablet 20 mEq (COMPLETED)Jump to med 20 mEq, Oral, Once, 1 dose, On Tue12/20/24 at 1500, Routine Group 3: potassium chloride CR (Klor-Con) ER tablet 40 mEq (COMPLETED)Jump to med 40 mEq, Oral, Once, 1 dose, On Tue12/21/24 at 0615, Routine Followed by potassium chloride CR (Klor-Con) ER tablet 20 mEq (COMPLETED)Jump to med 20 mEq, Oral, Once, 1 dose, On Tue12/21/24 at 0730, Routine Group 4: HYDROmorphone (Dilaudid) injection 0.25 mg (CANCELED) 0.25 mg, Intravenous, Every 2 hour PRN, Starting on Tue12/17/24 at 1548, Until Tue12/19/24 at 0951, Routine, mild - moderate pain Or HYDROmorphone (Dilaudid) injection 0.5 mg (CANCELED)Jump to med 0.5 mg, Intravenous, Every 2 hour PRN, Starting on Tue12/17/24 at 1548, Until Tue12/19/24 at 0951, Routine, severe pain Group 5: metoclopramide (Reglan) tablet 10 mgJump to med 10 mg, Oral, Every 6 hours PRN, Starting on Tue12/20/24 at 0857, Until Tue12/21/24 at 1401, Routine, nausea, vomiting, use if ondansetron is ineffective after 30 minutes Group 6: oxyCODONE (Roxicodone) immediate release tablet 5 mgJump to med 5 mg, Oral, Every 4 hours PRN, Starting on Tue12/17/24 at 1549, Until Tue12/21/24 at 1401, Routine, moderate pain Or oxyCODONE (Roxicodone) immediate release tablet 10 mgJump to med 10 mg, Oral, Every 4 hours PRN, Starting on Tue12/17/24 at 1549, Until Tue12/21/24 at 1401, Routine, severe pain documented in this encounter Additional Health Concerns Assessment Noted Time A fall risk assessment has been complete d for the patient 12/13/2024 11:24 AM EDT A Body Mass Index follow-up plan has been documented for the patient 12/21/2024 10:25 AM EDT documented as of this encounter Care Teams Ict Teacher Relationship Specialty Start Date End Date Marge Woodard MD [address] [place] [address] PCP - General 10/31/24 Shiela Vela APRN [address] [place], [place] [id number] Referring Physician 10/31/24 documented as of this encounter
--- OUTSIDE RECORDS SUMMARY | 2024-12-17 07:00 | XMS_ITS | Encounter Summary ---
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 Name Role Phone Marge Woodard MD Primary Care Provider [phone] Shiela Vela IMPROVEMENT NURSE Unavailable [phone] Reason for Visit * Auth/Cert (Routine) Specialty Diagnoses / Procedures Referred By Contac t Referred To Contact Diagnoses Coronary artery disease involving [place] coronary artery of [place] heart with angina pectoris (CMS/HCC) Coronary artery disease involving [place] coronary artery of [place] heart with angina pectoris (CMS/HCC) [I25.119] Procedures [place] CABG, ARTERIAL, SINGLE CABG, 2 OR MORE VESSELS Boris Al MD [address] [address] Phone: tel: fax: [facility] [address] [place] [address] Phone: tel: Referral ID Status Reason Start Date Expiration Date Visits Re quested Visits Authorized [id number] 1 1 Encounter Details Date Type Department Care Team (Late st Contact Info) Description 12/17/2024 7:00 AM EDT - 12/17/2024 3:15 PM EDT Surgery [facility] [address] [place] [address] Boris Al MD [address] [address] CABG, 2 OR MORE VESSELS [37400 (CPT )] Surgery Details Date/Time Status Location OR Service Patient Class Case Class Case Type Trauma Case? 12/17/2024 7:00 AM Posted [facility] 14 Cardiothoracic Surgery Surgery Admit E-Elect casey Panel 1 Procedure LRB Anes Op Region Wound Class Comments CABG, 2 OR MORE VESSELS N/A General Surgeon Surgeon Role Service Panel Mo Jaeger PA Assisting 1 Boris Al MD Primary Cardiothoracic Surg jeremy 1 Boris Al MD Primary Cardiothoracic Surg jeremy 1 Renuka Lowe DO Resident - Assisting 1 Dawson Mclaughlin MD Resident - Assisting 1 documented in this encounter Social History Tobacco Use Types Packs/Day Years Used Date Smoking Tobacco: Every Day Cigarettes 0.5 50.7 Started: 1975 Smokeless Tobacco: Never Comments:She has been quitti alon, very close. Alcohol Use Standard Drinks/Week Comments [...] any time in the past 12 m [facility], were you homeless or living in a half-way (including now)? No 12/18/2024 Utilities Answer Date Recorded In the past 12 months has e [employer], [employer], oil, or water [place] threatened to shut off services in your home? No 12/18/2024 Comments No Sex and Gender Information Value Date Recorded Sex Assigned at Not on file Legal Sex Female 1:50 PM EDT Gender Identity Not on file Sexual Orientation Not on file documented as of this encounter Last Filed Vital Signs Vital Sign Reading Time Taken Comments Blood Pressure 103/62 12/17/2024 6:04 AM EDT Pulse 74 12/17/2024 6:02 AM EDT Temperature 36.8 C (98.2 F) 12/17/2024 6:02 AM EDT Respiratory Rate - - Oxygen Saturation 100% 12/17/2024 6:02 AM EDT Inhaled Oxygen Concentration - - Weight 69.9 kg (154 lb) 12/17/2024 6:15 AM EDT Height - - Body Mass Index 26.64 12/18/2024 12:57 PM EDT documented in this encounter Medications at Time of Discharge [...] by mouth 2 times a day. Tiotropium [place] Monohydrate (SPIRIVA HANDIH[employer] [place]) Inhale 1 puff [...] rehab. Referral entered to patients preferred location, [facility]. Lazaro will contact Ms. Antoine to discuss and [...] rehabilitation program. 2. Eligibility: CABG 3. Exceptions/exclusions: [facility] Cardiac Rehab Exclusions: None 4. Referral: [facility] Cardiac Rehab Referral: Patient will consider participating in a cardiac rehabilitation program. Patient was provided with contact information for the following program(s) for consideration: [facility] [place] - [phone]. 5. Information sent: Information Sent: Appropriate information [...] note were not included. 798 Narcan Nasal [place]: Rescue Guide for Opioid Overdose Step 1 [...] for use in the nose. * Jeff OnIR - Selin Bartlett - 12/21/2024 10:24 AM EDT Images from the original note were not included. [id number] Oxycodone IMPORTANT WARNING: Oxycodone may be habit-forming. [...] Health Services Administration (SAMHSA) National Helpline at 0-595-087-HYMF. Oxycodone may cause serious or life-threatening breathing [...] doctor or pharmacist will give you the pigs feet cleaner's patient information sheet (Medication Guide) when you begin your treatment with oxycodone and each time you fill your prescription. Read theinformation carefully and ask your doctor or pharmacist if you have any questions. You can also visit the Food and Drug Administration (FDA) website (https://www.fda.gov/Drugs/DrugSafety/okl906295.htm) or the pigs feet cleaner's website to obtain the Medication Guide. WHY [...] an extended-release capsule (Xtampza ER??) [facility]. The solution, concentrated solution, tablet, and capsule [...] or herbal products may interact with oxycodone: Tee's wort andtryptophan. Be sure to let your [...] be awakened, immediately call emergency services at 601. While taking oxycodone, you should talk to [...] pharmacist for the instructions or visit the pigs feet cleaner's website to get the instructions. If symptoms [...] narrowing or widening of the pupils (dark [place] in the eye) ? cold, clammy skin [...] of all of the prescription and nonprescription (mqwv-lot-siodeqh) medicines, vitamins, minerals, and dietary supplements you [...] or pharmacist about specific clinical use. The [place] [employer] represents that the information provided hereunder was formulated with a reasonable standard of care, and in conformity with professional standards in the field. The [place] [employer] makes no representations or warranties, express or implied, including, but not limited to, any implied warranty of merchantability and/or fitness for a particular purpose, with respect to such information and specifically disclaims all such warranties. Users are advised that decisions regarding drug therapy are complex medical decisions requiring the independent, informed decision of an appropriate health point of care technician, and the information is provided for informational purposes only. The entire monograph for a drug should be reviewed for a thorough understanding of the drug's actions, uses and side effects. The [place] [employer] does not endorse or recommend the use of any drug.The information is not a substitute for medical care. AHFS?? Patient Medication Information?. ?? Copyright, 2023. The [place]??, [address], [address], [place], [place]. All Rights Reserved. Duplication for commercial use must be authorized by [facility]. Selected Revisions: June 13, 2024. AHFS?? Patient Medication Information?. ?? Copyright, 2024 Electronically signed by Selin Bartlett 12/21/2024 10:24 AM EDT * Jeff OnFHIR - Selin Bartlett - 12/21/2024 10:24 AM EDT Images from the original note were not included. [id number] Nifedipine WHY is this medicine prescribed? Nifedipine [...] or herbal products may interact with nifedipine: Tee's wort; cimetidine (Tagamet). Be sure to let [...] if you have had a myocardial infarction (ID) within the last 2 weeks. ? tell [...] of all of the prescription and nonprescription (fcox-kgi-eaqovtr) medicines, vitamins, minerals, and dietary supplements you [...] or pharmacist about specific clinical use. The [place] [employer] represents that the information provided hereunder was formulated with a reasonable standard of care, and in conformity with professional standards in the field. The [place] makes no representations or warranties, express or implied, including, but not limited to, any implied warranty of merchantability and/or fitness for a particular purpose, with respect to such information and specifically disclaims all such warranties. Users are advised that decisions regarding drug therapy are complex medical decisions requiring the independent, informed decision of an appropriate health point of care technician, and the information is provided for informational purposes only. The entire monograph for a drug should be reviewed for a thorough understanding of the drug's actions, uses and side effects. The [place] [employer] does not endorse or recommend the use of any drug.The information is not a substitute for medical care. AHFS?? Patient Medication Information?. ?? Copyright, 2023. The [employer]??, [address], [address], [place], [place]. All Rights Reserved. Duplication for commercial use must be authorized by [facility]. Selected Revisions: March 13, 2017. AHFS?? Patient Medication Information?. ?? Copyright, 2024 * Jeff BowerHITESH - Selin Bartlett - 12/21/2024 10:24 AM EDT Images from the original note were not included. [id number] Metoprolol WHY is this medicine prescribed? Metoprolol [...] and out of their sight and reach. https://www.Sentillion.InstallFree Dispose of unneeded medications in a way [...] of all of the prescription and nonprescription (qtvl-fgh-iwnfbei) medicines, vitamins, minerals, and dietary supplements you are taking. Bring this list with you each time you visit a doctor or if you are admitted to the hospital. You should carry the list with you in case of kristi rgencies. Brand Name(s): ? Kapspargo Sprinkle?? ? Lopressor?? ? Toprol? Toprol?? XL ? [...] or pharmacist about specific clinical use. The [place] [employer] represents that the information provided hereunder was formulated with a reasonable standard of care, and in conformity with professional standards in the field. The [place] makes no representations or warranties, express or implied, including, but not limited to, any implied warranty of merchantability and/or fitness for a particular purpose, with respect to such information and specifically disclaims all such warranties. Users are advised that decisions regarding drug therapy are complex medical decisions requiring the independent, informed decision of an appropriate health point of care technician, and the information is provided for informational purposes only. The entire monograph for a drug should be reviewed for a thorough understanding of the drug's actions, uses and side effects. The [place] [employer] does not endorse or recommend the use of any drug.The information is not a substitute for medical care. AHFS?? Patient Medication Information?. ?? Copyright, 2023. The [employer]??, [address], [address], [place], [place]. All Rights Reserved. Duplication for commercial use must be authorized by [facility]. Selected Revisions: February 11, 2023. AHFS?? Patient Medication Information?. ?? Copyright, 2024 * Jeff Monaco - Selin Bartlett - 12/21/2024 10:24 AM EDT Images from the original note were not included. [id number] Methocarbamol WHY is this medicine prescribed? Methocarbamol [...] of all of the prescription and nonprescription (ywmp-svh-eczlubj) medicines, vitamins, minerals, and dietary supplements you [...] or pharmacist about specific clinical use. The [place] [employer] represents that the information provided hereunder was formulated with a reasonable standard of care, and in conformity with professional standards in the field. The [place] makes no representations or warranties, express or implied, including, but not limited to, any implied warranty of merchantability and/or fitness for a particular purpose, with respect to such information and specifically disclaims all such warranties. Users are advised that decisions regarding drug therapy are complex medical decisions requiring the independent, informed decision of an appropriate health point of care technician, and the information is provided for informational purposes only. The entire monograph for a drug should be reviewed for a thorough understanding of the drug's actions, uses and side effects. The [place] [employer] does not endorse or recommend the use of any drug.The information is not a substitute for medical care. AHFS?? Patient Medication Information?. ?? Copyright, 2023. The [place] [employer]??, [address], [address], [place], [place]. All Rights Reserved. Duplication for commercial use must be authorized by [facility]. Selected Revisions: January 11, 2017. AHFS?? Patient Medication Information?. ?? Copyright, 2024 * Kratatianna Osorio Selin Bartlett K - 12/21/2024 10:24 AM EDT Images from the original note were not included. [id number] Stool Softeners WHY is this medicine prescribed? [...] of all of the prescription and nonprescription (mmww-oui-msuvyda) medicines, vitamins, minerals, and dietary supplements you [...] or pharmacist about specific clinical use. The [place] [employer] represents that the information provided hereunder was formulated with a reasonable standard of care, and in conformity with professional standards in the field. The [place] [employer] makes no representations or warranties, express or implied, including, but not limited to, any implied warranty of merchantability and/or fitness for a particular purpose, with respect to such information and specifically disclaims all such warranties. Users are advised that decisions regarding drug therapy are complex medical decisions requiring the independent, informed decision of an appropriate health point of care technician, and the information is provided for informational purposes only. The entire monograph for a drug should be reviewed for a thorough understanding of the drug's actions, uses and side effects. The [place] [employer] does not endorse or recommend the use of any drug.The information is not a substitute for medical care. AHFS?? Patient Medication Information?. ?? Copyright, 2023. The [employer]??, [address], [address], [place], [place]. All Rights Reserved. Duplication for commercial use must be authorized by [facility]. Selected Revisions: November 17, 2023. AHFS?? Patient [...] PCP name and Address: Marge Woodard MD [address] [place] [address] Referring provider name and address: No referring [...] Your Medications These medications were sent to [facility] - [place], [place] - [address] [facility], [facility] [address] acetaminophen 325 MG tablet aspirin 81 MG [...] minutes early and bring UPDATED medication list. [facility] [address] [address] Test Results Pending At Discharge none Pertinent [...] from the original note were not included. [id number] Aspirin WHY is this medicine prescribed? Prescription [...] be awakened, immediately call emergency services at 925. Symptoms of overdose may include: ? burning [...] of all of the prescription and nonprescription (pcfb-afa-wleoaxx) medicines, vitamins, minerals, and dietary supplements you [...] Uni-Tren?? ? [place]?? ? Zorprin?? ? [place]?? (as a combination product containing Aspirin, Citric Acid, Sodium Bicarbonate) ? [place]?? Extra Strength (as a combination product containing Aspirin, Citric Acid, Sodium Bicarbonate) ? [place]?? Morning Relief (as a combination product containing Aspirin, Caffeine) ? [place]?? Plus Flu (as a combination product containing Aspirin, Chlorpheniramine, Dextromethorphan) ? [place]?? PM (as a combination product containing Aspirin, [...] or pharmacist about specific clinical use. The [place] [employer] represents that the information provided hereunder was formulated with a reasonable standard of care, and in conformity with professional standards in the field. The [place] [employer] makes no representations or warranties, express or implied, including, but not limited to, any implied warranty of merchantability and/or fitness for a particular purpose, with respect to such information and specifically disclaims all such warranties. Users are advised that decisions regarding drug therapy are complex medical decisions requiring the independent, informed decision of an appropriate health point of care technician, and the information is provided for informational purposes only. The entire monograph for a drug should be reviewed for a thorough understanding of the drug's actions, uses and side effects. The [place] [employer] does not endorse or recommend the use of any drug.The information is not a substitute for medical care. AHFS?? Patient Medication Information?. ?? Copyright, 2023. The [employer]??, [address], [address], [place], [place]. All Rights Reserved. Duplication for commercial use must be authorized by [facility]. Selected Revisions: October 11, 2020. AHFS?? Patient Medication Information?. ?? Copyright, 2024 * Jeff Monaco - Selin Bartlett - 12/21/2024 10:24 AM EDT Images from the original note were not included. [id number] Acetaminophen IMPORTANT WARNING: Taking too much acetaminophen [...] measuring cup or syringe provided by the pigs feet cleaner to measure each dose of the solution [...] and out of their sight and reach. https://www.Sentillion.InstallFree Dispose of unneeded medications in a way [...] awakened, immediately call emergency services at 911. If someone takes more than the recommended [...] of all of the prescription and nonprescription (reyw-zam-aexatvx) medicines, vitamins, minerals, and dietary supplements you [...] a combination product containing Acetaminophen, Oxycodone) APAP, O-rynxsu-hvuq-aminophenol, Paracetamol This report on medications is for your information only, and is not considered individual patient advice. Because of the changing nature of drug information, please consult your physician or pharmacist about specific clinical use. The [place] represents that the information provided hereunder was formulated with a reasonable standard of care, and in conformity with professional standards in the field. The [employer] makes no representations or warranties, express or implied, including, but not limited to, any implied warranty of merchantability and/or fitness for a particular purpose, with respect to such information and specifically disclaims all such warranties. Users are advised that decisions regarding drug therapy are complex medical decisions requiring the independent, informed decision of an appropriate health point of care technician, and the information is provided for informational purposes only. The entire monograph for a drug should be reviewed for a thorough understanding of the drug's actions, uses and side effects. The [place] does not endorse or recommend the use of any drug.The information is not a substitute for medical care. AHFS?? Patient Medication Information?. ?? Copyright, 2023. The [employer]??, [address], [address], [place], [place]. All Rights Reserved. Duplication for commercial use must be authorized by [facility]. Selected Revisions: February 11, 2023. AHFS?? Patient [...] and Manage Fall Risk Flowsheets (Taken 12/21/2024 1005) Safety Promotion/Fall Prevention: activity supervised Intervention: Prevent [...] promoted Intervention: Provide Person-Centered Care Flowsheets (Taken 12/21/2024 100) Trust Relationship/Rapport: care explained choices provided questions answered questions encouraged Goal: Readiness for Transition of Care Outcome: Met Problem: Fall Injury Risk Goal: Absence of Fall and Fall-Related Injury Outcome: Met Intervention: Identify and Manage Contributors Flowsheets (Taken 12/21/2024 100) Medication Review/Management: medications reviewed Self-Care Promotion: independence [...] Note Beverley Antoine 59 y.o. female CSN: [id number] Admission: 12/17/2024 5:11 AM Primary Problem: CAD (coronary artery disease) Primary Ware Tester: Primary Caregiver: Self Assistance Available at Discharge: Current Outpatient/Agency/Support Group: DME Availability of Care Givers (#Hours): No assistance needed Family/Ware Tester(s) Willingness Assessed to care for patient at home: Yes Family/Ware Tester(s) Readiness Assessed to care for patient at [...] Medicare Second Notice Recieved By: patient Follow-up: [employer] [facility] [address], [address] [facility] [address] Nestor Juarez MD [facility] [address] [place] [address] Follow up on 02/13/2025 Your appointment is [...] education reinforced Intervention: Prevent Infection Flowsheets (Taken 12/21/202427) Infection Prevention: rest/sleep promoted Goal: Optimal Comfort [...] Note Beverley Antoine 59 y.o. female CSN: [id number] Admission: 12/17/2024 5:11 AM Primary Problem: CAD (coronary artery disease) Anticipated Discharge Date: 12/21/2024 Additional Comments: GIOVANNY ARTEAGA reviewed chart and met with primary team to discuss plan of care. Patient is not medically ready for discharge at this time, chest tube and pacing wires removed. GIOVANNY ARTEAGA willcontinue to follow. CM place rollator [facility] [...] present and normoactive x 4 quadrants SKIN: [place], warm, and dry. No rash, sores, or [...] unexpected post op - 12/19: 13.36 - 7/24: 9.3 Electrolyte Abnormalities Hypokalemia Hypermagnesemia Hypophosphatemia Hypocalcemia [...] EPWs Possibly home in am Cardiothoracic Surgery [phone] [1] acetaminophen, 1,000 mg, Oral, q8h aspirin, [...] sodium chloride, 10 mL, Intravenous, q12h Tiotropium [place] Monohydrate, 2 puff, Inhalation, Daily zonisamide, 300 [...] Injury Flowsheets (Taken 12/19/2024 1600 by Bouchra Rees, RN) Body Position: weight shifting Goal: Optimal [...] Ongoing, Progressing Flowsheets Taken 12/18/2024 1243 by Bocuhra Rees RN Progress: improving Taken 12/17/2024 0715 [...] Intervention: Promote Injury-Free Environment Flowsheets (Taken 12/18/2024 2000 by Lela Khan) Safety Promotion/Fall Prevention: lighting [...] Recovery Flowsheets Taken 12/19/2024 1600 by Bouchra Rees RN Patient Tolerance (IS): good Administration (IS): [...] Ongoing, Progressing Intervention: Promote Activity and Functional [place] Flowsheets Taken 12/19/2024 1712 Adaptive Equipment Use: use encouraged Taken 12/19/2024 1515 Activity Assistance Provided: assistance, stand-by Taken 12/18/2024 1243 Self-Care Promotion: independence encouraged * Hospital Course - Andrew Paulson PA - 12/19/2024 12:10 PM EDT * Progress Notes - Bushra Pham PTA - 12/19/2024 11:57 AM EDT Physical Therapy Treatment Patient Name: Beverley Antoine Today's Date: 12/19/2024 PT Discharge Recommendations: Home with assistance Equipment Recommended: Rollator Subjective The patient states, I am doing okay. Participants in Care Family/Caregiver Present: No Lithographic Plate Maker Apprentice: Not Applicable Presentation Oxygen: Supplemental oxygen Nasal [...] of Consciousness: Negative Therapeutic Activity (27 minutes) INSPECTOR TIMERS provided the patient with a printed Finderly handout with sternal precautions information; Verbal, visual, [...] sequencing. Bed Mobility Exam: Rolling/Turning Level of [place]: Contact guard Physical/Nonphysical Assist: Verbal Cues, Set-up required Bed Mobility Exam: Scooting/Bridging Level of [place]: Contact guard (to scoot to edge of bed with cues to adhere to sternal precautions.) Physical/Nonphysical Assist: Verbal Cues, Set-up required Bed Mobility Exam: Supine to Sit Level of [place]: Minimum assist (75% patient's effort) Physical/Nonphysical Assist: Verbal Cues, HOB elevated, Set-up required Transfers Transfer Intervention: Verbal cues provided for correct bilateral hand and foot placement during sit to stand transfers. Transfer Exam: Sit to stand Level of [place]: Contact guard Physical/Nonphysical Assist: Verbal Cues, Set-up required Assistive Device: Rollator Transfer Exam: Stand to Sit Level of [place]: Contact guard Physical/Nonphysical Assist: Verbal Cues, Set-up [...] PM. * Progress Notes - Mo Jaeger, PA - 12/19/2024 9:07 AM EDT Images from [...] 84 91 101 Temp 36.8 C Resp 11 21 23 13 15 20 PAP: (28-30)/(11-17) 28/11 CO: [3.8 L/min-4.9 L/min] 4.2 L/min CI: [...] disease with (acute) exacerbation (CMS/HCC) CAD in [place] artery S/P CABG x 3 Acute blood [...] sodium chloride, 10 mL, Intravenous, q12h Tiotropium [place] Monohydrate, 2 puff, Inhalation, Daily zonisamide, 300 [...] 2:37 PM EDT Associated Problem(s): CAD in [place] artery -Monitor per protocol. * Assessment & [...] PM EDT Associated Problem(s): Bipolar affective disorder ([facility]/HCC) -Previously on meds - since been well controlled * Assessment & Plan Note - Anna Cortez MD - 12/18/2024 2:37 PM EDT Associated Problem(s): Diabetes ([facility]/HCC) -Pre-diabetes - last A1C 5.8 - resume [...] 2:37 PM EDT Associated Problem(s): Lung cancer (CMS/HCC) - hx Stage [...] Chronic obstructive pulmonary disease with (acute) exacerbation (CMS/[facility]) -not on home O2 - Resumed home albuterol and spiriva * Progress Notes - Anna Cortez MD - 12/18/2024 2:33 PM EDT Procedures 12/18/24 Beverley Antoine HPI Beverley Antoine is a [...] BID. D/C PAC. Edited by: Marlin Bloom, IMPROVEMENT NURSE at 12/18/2024 1255 Lines/Drains/Tubes: Patient Lines/Drains/Airways Status [...] Right 12/17/24 0816 Internal jugular 1 GCS: Alberto Coma Scale Score: 15 Review [...] Resumed home albuterol and spiriva CAD in [place] artery Present on Admission: Yes -Monitor per [...] deficiency Insomnia Chronic systolic HF (heart failure) ([facility]) Overview Signed 11/08/2024 10:33 AM by Chastity Antunez RN Added automatically from request for surgery [id number] Depression S/P total knee replacement, left Feeding: [...] Note Beverley Antoine 59 y.o. female CSN: [id number] Room/Bed 213/213A Nutrition evaluation type: assessment Reason [...] Supplemental oxygen O2 Delivery Method: Nasal cannula Alberto Coma Scale Score: 15 Donato/Cubbin Pressure Risk [...] (Calculated): 28.71 Weight Evaluation: Overweight (BMI 25-29.9) [place] Body Weight (kg): 52.3 Percent [place] Body Weight: 141 Adjusted Body Weight (kg): 57.6 Wt Readings from Last 10 Encounters: 12/18/24 73.5 kg (162 lb 0.6 oz) 12/13/24 70.3 kg (154 lb 15.7 oz) 11/08/24 71.8 kg (158 lb 4.6 oz) Estimated Needs: Kcal/ K-30 Kcal Provided: 6876-5699 Kcal Needs Based On: Adjusted weight Gm [...] Vitamin D, metFORMIN, B 12, folic acid Sabianist needs: Nutrition Focused Physical Exam: Unable to [...] > 75% Acuity Level: 3 Elaine Bishop, Motor Vehicle Compliance Analyst Nona Gallardo, REE [1] Past Medical History: [...] tablet 1,000 mg, 1,000 mg, Oral, q8h, Shazia Newman, IMPROVEMENT NURSE, 1,000 mg at 12/18/24 0933 albumin human [...] 1 mg, Intramuscular, q15 min PRN, Marlin Bloom, IMPROVEMENT NURSE docusate sodium (Colace) capsule 100 mg, 100 [...] 80 mg, Oral, 4x daily, Shazia Newman, IMPROVEMENT NURSE, 80 mg at 12/18/24 1315 sodium chloride 0.9 % flush 10 mL, 10 mL, Intravenous, q12h, Boris Al MD, 10 mL at 12/18/24 0635 sodium chloride 0.9 % flush 10 mL, 10 mL, Intravenous, q1h PRN, Boris Al MD sodium chloride 0.9 % flush 20 mL, 20 mL, Intravenous, q1h PRN, Boris Al MD [START ON 12/19/2024] Tiotropium [place] Monohydrate (Spiriva Respimat) 2.5 MCG/ACT inhaler 2 puff, 2 puff, Inhalation, Daily, Boris Al MD zonisamide (Zonegran) capsule 300 mg, 300 mg, Oral, Daily, Anna Cortez MD, 300 mg at 12/18/24 0929 * Progress Notes - Arlene Pal - 12/18/2024 10:18 AM EDT Case Management Adult Initial Progress Note Beverley Antoine 59 y.o. female CSN: [id number] Admission: 12/17/2024 5:11 AM Primary Problem: CAD (coronary artery disease) PCP: Marge Woodard MD Emergency Contact: Extended Emergency Contact Information Primary Emergency Contact: Wander Antoine Mobile Relation: Spouse Lithographic Plate Maker Apprentice needed? No Insurance: Primary Visit Coverage Payer Plan Sponsor Code Group Number Group Name HUMANA MEDICARE HUMANA MEDICARE [id number] Primary Visit Coverage Subscriber Subscriber ID Subscriber Name Subscriber SSN Subscriber Address [id number] Beverley Antoine [id number] [address] Patient information: Primary Caregiver: Self Accompanied by/Relationship: Wander Antoine/ ([phone]) Support System: Immediate family Daily Living Activities: Functional Status: Independent Living Arrangements: Spouse/Significant other, Family (, [id number]) Type of Residence: Private residence, Single Level (ramps to enter) [address] [facility] [address] Current DME: Equipment Currently Used at Home: [...] Dialysis Services: N/A Living Will/Advance Directive/Power of Field Organizer /Guardian: Advance Directive: Patient has advance directive, [...] Depression: Not at risk (09/14/2021) Received from [facility] PHQ-2 PHQ-2 Total Score: 0 Utilities: Not [...] initial assessment; pt accompanied by /NOK Wander Arash ([phone]). Pt does not have a POA/LW/AD. Pt [...] confirms PCP as Marge Woodard MD in [place]. transports pt to appointments and could transport upon DC. Pt has never worked with an CSW, has never stayed inpatient for physical rehab, and is unsure she will need physical rehab upon DC. Pt prefers [facility] in [place]. Pt confirms insurance as [employer]. No further SW concerns identified at this time. SW will monitor pt's progress and will follow up with DC planning and needs as appropriate. FOUZIA Zaragoza * Progress Notes - Carley Carnes H - 12/18/2024 9:28 AM EDT Physical Therapy Evaluation Patient Name: Beverley Antoine Today's Date: 12/18/2024 PT Discharge Recommendations: Home with assistance Equipment Recommended: Rollator History Beverley Antoine is 59 y.o. female admitted 12/17/2024 for work-up of CAD (coronary artery disease). Problem List Active Hospital Problems Diagnosis Date Noted CAD in [place] artery 12/17/2024 S/P CABG x 3 12/17/2024 Acute blood loss anemia 12/17/2024 Thrombocytopenia ([facility]) 12/17/2024 Electrolyte abnormality 12/17/2024 Cardiac volume overload 12/17/2024 Cancer ([facility]) 11/08/2024 CAD (coronary artery disease) 11/07/2024 HLD (hyperlipidemia) 11/07/2024 Seizures ([facility]) 11/07/2024 Lung cancer ([facility]) 11/07/2024 Tobacco dependence 11/07/2024 Bipolar affective disorder ([facility]) 11/07/2024 Diabetes ([facility]) 11/07/2024 Anxiety 11/07/2024 Chronic obstructive pulmonary disease with (acute) exacerbation ([facility]) 03/07/2023 Procedures 12/17/2024 Procedure(s): CABG, 2 OR MORE VESSELS Past Medical History Patient has a past medical history of Cancer ([facility]), CHF (congestive heart failure) ([facility]), COPD (chronic obstructive pulmonary disease) ([facility]), Coronary artery disease, Diabetes mellitus ([facility]), Hyperlipidemia, Myocardial infarction ([facility]), Pneumonia, and Stroke ([facility]). Past Surgical History Patient has a [...] admission Level of Mobility: Ambulatory- community Mobility [place]: Independent gait without device History of Falls: [...] Transfer Exam: Sit to stand Level of [place]: Contact guard Physical/Nonphysical Assist: Verbal Cues, Moderate cues, 1 person + 1 person to manage equipment Assistive Device: Rollator Transfer Exam: Stand to Sit Level of [place]: Contact guard Physical/Nonphysical Assist: Verbal Cues, Moderate [...] signs WNL during mobility tasks. Standardized Assessments [facility] 6-Clicks Mobility Assessment Difficulty patient has turning [...] 3-5 steps with a railing?: A little [facility] 6-Clicks Mobility Assessment Total : 18 No [...] Hospital Problems Diagnosis Date Noted CAD in [place] artery 12/17/2024 S/P CABG x 3 12/17/2024 Acute blood loss anemia 12/17/2024 Thrombocytopenia ([facility]) 12/17/2024 Electrolyte abnormality 12/17/2024 Cardiac volume overload 12/17/2024 Cancer ([facility]) 11/08/2024 CAD (coronary artery disease) 11/07/2024 HLD (hyperlipidemia) 11/07/2024 Seizures ([facility]) 11/07/2024 Lung cancer ([facility]) 11/07/2024 Tobacco dependence 11/07/2024 Bipolar affective disorder ([facility]) 11/07/2024 Diabetes ([facility]) 11/07/2024 Anxiety 11/07/2024 Chronic obstructive pulmonary disease with (acute) exacerbation ([facility]) 03/07/2023 Procedures 12/17/2024 Procedure(s): CABG, 2 OR MORE VESSELS Past Medical History Patient has a past medical history of Cancer ([facility]), CHF (congestive heart failure) ([facility]), COPD (chronic obstructive pulmonary disease) ([facility]), Coronary artery disease, Diabetes mellitus ([facility]), Hyperlipidemia, Myocardial infarction ([facility]), Pneumonia, and Stroke ([facility]). Past Surgical History Patient has a [...] admission Level of Mobility: Ambulatory- community Mobility [place]: Independent gait without device History of Falls: [...] Transfer Exam: Sit to stand Level of [place]: Contact guard Physical/Nonphysical Assist: Verbal Cues, Moderate cues, 1 person + 1 person to manage equipment Assistive Device: Rollator Transfer Exam: Stand to Sit Level of [place]: Contact guard Physical/Nonphysical Assist: Verbal Cues, Moderate [...] continued education to improve carryover. Standardized Assessments [facility] 6[facility] Daily Activities Help from Other: Don/Doff Regular Lower Body Clothings: A lot Help From Other: Bathing: A lot Help From Other: Toileting: A lot Help From Other: Don/Doff Upper Body Clothings: Little Help From Other: Grooming: Little Help From Other: Eating Meals: None [facility] - Daily Activities Score: [...] Vaughn on 12/18/24 at 2:08 PM. * Jeff Monaco - Shiela Branch RN - 12/18/2024 8:00 AM EDT Images from the original note were not included. 47239 Recovery From Heart Surgery: The First Few [...] stop Last Reviewed Date: 2024 00:00:00 ?? [id number] The [employer]. All rights reserved. This information is not intended as a substitute for professional medical care. Always follow your healthcare professional's instructions. * Jeff BowerHITESH - Shiela Branch RN - 12/18/2024 8:00 [...] ? Natural and processed cheeses such as Jordanian, blue, mozzarella, and Vietnamese Meat and protein substitutes Special instructions: ? [...] ? Oat meal ? Whole wheat ? Walling ? Pumpernickel ? White ? Raisin ? Crackers prepared without butter, lard, coconut, or palm oil ? Dry cereals that contain allowed fats ? Rice and pasta prepared with allowed fats ? Egg noodles (limit to ?? cup per day) ? Puerto Rican ? Telugu ? Pashto muffins ? Pancakes, waffles, biscuits, and cornbread made with allowed ingredients ? Flat bread ? Eric crackers ? Matzoh crackers ? Whole grain or enriched cereals prepared with allowed oils ? Wheat germ Avoid: ? Egg or cheese bread ? Butter rolls ? Commercially prepared products: biscuits, muffins, sweet rolls, cornbread, pancakes and waffles, salvadorean toast, croissants ? Noodles ? Cheese crackers ? Flavored crackers prepared with saturated fats ? Any cereal prepared with saturated fat ? Namibian noodles ? Rice and pasta prepared with eggs, cream, or high fat cheese Fruits Choose: ? Any fresh, frozen, canned, or dried fruit or juice ? Avocado Vegetables Choose: ? Any fresh, frozen, or canned vegetables ? Potatoes prepared with allowed fat ? Olives (limit to 10 small or 5 large per day) Avoid: ? Buttered, creamed, or fried vegetables ? Isme-u-ekfry, commercially made ? Vegetables prepared in a [...] sizes are listed below: ? Nuts: The [place] Heart Association recommends including 5 servings of [...] avocado oil, etc.: 1 tablespoon o The [place] Heart Association recommends limiting oils to 3 [...] ingredients ? Sorbet ? Ice milk ? Poulan ? Gum drops ? Jelly beans ? [...] saturated fats, cheese, and/or egg yolks ? Schroeder chips ? Potato chips and other snack [...] much from the food you eat. Use Aplicorer to Help Build Your Meals The SuperTracker can help you plan and track your meals and activity. You can look up individual foods to see or compare their nutritional value. You can get guidelines for what and how much you should eat. You can compare your food choices. And you can assess personal physical activities and see ways you can improve. Go to www.VinPerfect.gov/Next 2 Greatnesscker/. Eating Heart-Healthy Food: Using the DASH Plan [...] DASH eating plan, visit: www.nhlbi.nih.gov/health/health-topics/topics/dash * Jeff Monaco - Shiela Branch RN - 12/18/2024 8:00 AM EDT Images from the original note were not included. 18068 Eating Heart-Healthy Foods Eating has a big [...] cindy. Last Reviewed Date: 2022 00:00:00 ?? [id number] [employer]. All rights reserved. This information is not intended as a substitute for professional medical care. Always follow your healthcare professional's instructions. * Jeff BowerHITESH - Shiela Branch RN - 12/18/2024 8:00 [...] your arms away from your body. * [facility] Shiela Branch RN - 12/18/2024 8:00 AM EDT Images from the original note were not included. 52328 After Bypass Surgery: Reaching, Bending, and Lifting [...] your shoulders and hips in line. ? roads superintendent the object and hold it close to [...] directions. Last Reviewed Date: 2024 00:00:00 ?? [id number] The [employer]. All rights reserved. This information is not intended as a substitute for professional medical care. Always follow your healthcare professional's instructions. * Jeff Monaco - Shiela Branch RN - 12/18/2024 8:00 AM EDT Images from the original note were not included. [id number] After Bypass Surgery: Getting Up and Out [...] do. Last Reviewed Date: 2024 00:00:00 ?? [id number] The [employer]. All rights reserved. This information is not intended as a substitute for professional medical care. Always follow your healthcare professional's instructions. * Discharge Instr - Other Orders - Shiela Branch RN - 12/18/2024 8:00 AM EDT Please arrive 30 minutes early for your appointment with Dr. Al Prior to your appointment, go to the radiology department on the 1st floor of the [facility] near [facility] for a chest x-ray. Then go [...] * Discharge Instr - Activity - Shiela Branch RN - 12/18/2024 7:59 AM EDT Take a shower every day. Use a clean washcloth on your incisions every day. Wash your incisions before you wash anywhere else on your body. Do NOT use Neosporin, Peroxide, Betadine, or other ointments on your incisions. Do NOT lift, push, or tube puller 5 pounds for six weeks. Do [...] Shiela Branch CT Surgery Nurse Navigator at [phone] Tuesday through Tuesday 7am- 3:30pm or clinic [phone] [facility] [phone] after 3:30 pm, weekends and holidays - ask for the CT surgeon manager economic. * Progress Notes - Boris Al MD [...] 1-32 mg/hr, Last Rate: 3 mg/hr (12/17/24 0297) insulin regular infusion - for hyperglycemia - [...] PM EDT Associated Problem(s): Bipolar affective disorder ([facility]/HCC) -Previously on meds - since been well controlled * Assessment & Plan Note - Shazia Newman APRN - 12/17/2024 11:30 PM EDT Associated Problem(s): Diabetes ([facility]/HCC) -Pre-diabetes - last A1C 5.8 - resume meds when appropriate - continue to monitor BG * Assessment & Plan Note - Shazia Newman APRN - 12/17/2024 11:30 PM EDT Associated Problem(s): Seizures ([facility]/HCC) -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 - well controlled with Zonegran - restart when appropriate * Assessment & Plan Note - Shazia Newman APRN - 12/17/2024 11:30 PM EDT Associated Problem(s): Lung cancer ([facility]/HCC) - hx Stage IV SCC of the [...] 11:30 PM EDT Associated Problem(s): CAD in [place] artery -Monitor per protocol. * Assessment & [...] diuresis in AM AM: Edited by: Shazia Newman, IMPROVEMENT NURSE at 12/17/2024 1851 Lines/Drains/Tubes: Patient Lines/Drains/Airways Status [...] 0816 Internal jugular less than 1 GCS: Thayer Coma Scale Score: 15 Review of Systems [...] normal. Results Review {Vanishing Link Review Results :[id number] I have reviewed the latest lab and [...] albuterol and spiriva when appropriate CAD in [place] artery Present on Admission: Yes -Monitor per [...] RN Added automatically from request for surgery [id number] Depression S/P total knee replacement, left Shazia [...] - 12/17/2024 4:24 PM EDTAssociated Problem(s): Diabetes ([facility]) -Pre-diabetes - last A1C 5.8 - resume meds when appropriate - continue to monitor BG * Assessment & Plan Note - Doug Otero MD - 12/17/2024 4:24 PM EDTAssociated Problem(s): Acute blood loss anemia -received 2u pRBCs intra-op - continue to monitor - transfuse as indicated * Assessment & Plan Note - Doug Otero MD - 12/17/2024 4:24 PM EDTAssociated Problem(s): Thrombocytopenia ([facility]) (Resolved 12/21/2024) -Continue to trend * Assessment & Plan Note - Doug Otero MD - 12/17/2024 4:24 PM EDTAssociated Problem(s): On mechanically assisted ventilation (CMS/HCC) (Resolved 12/17/2024) - expected post op - wean as able * Assessment & Plan Note - Doug Otero MD - 12/17/2024 4:24 PM EDTAssociated Problem(s): Electrolyte abnormality (Resolved 12/21/2024) - replace per ICU protocol * Assessment & Plan Note - Doug Otero MD - 12/17/2024 4:24 PM EDTAssociated Problem(s): CAD in [place] artery -Monitor per protocol. * H&P - Doug Otero MD - 12/17/2024 4:22 PM EDTAssociated Order(s): Critical Care Post-Procedure Diagnose(s): CAD in [place] artery Critical Care Performed by: Doug Otero [...] Reviewed and otherwise non-contributory. Allergies: Allergies[6] GCS: Thayer Coma Scale Score: 15 Review of Systems [...] albuterol and spiriva when appropriate CAD in [place] artery Present on Admission: Yes -Monitor per [...] syndrome Vitamin D deficiency Insomnia Anxiety Cancer ([facility]/HCC) Overview Signed 11/08/2024 10:33 AM by Chastity Antunez RN lung Chronic systolic HF (heart failure) ([facility]) Overview Signed 11/08/2024 10:33 AM by Chastity Antunez RN Added automatically from request for surgery [id number] Depression S/P total knee replacement, left Feeding: [...] [1] Past Medical History: Diagnosis Date Cancer ([facility]/HCC) Lung CHF (congestive heart failure) ([facility]) COPD (chronic obstructive pulmonary disease) ([facility]) Coronary artery disease Diabetes mellitus ([facility]/HCC) Hyperlipidemia Myocardial infarction ([facility]/HCC) Pneumonia Stroke ([facility]) [2] Past Surgical History: Procedure Laterality Date [...] mouth nightly. cholecalciferol (Vitamin D-3) 250 MCG (37624 UT) capsule Take 1 capsule by mouth [...] by mouth 2 times a day. Tiotropium [place] Monohydrate (SPIRIVA HANDIHALER IN) Inhale 1 puff [...] Insecurity: No Food Insecurity (04/25/2023) Received from [facility] Hunger Vital Sign Within the past 12 months, you worried that your food would run out before you got the money to buymore.: Never true Within the past 12 months, the food you bought just didn't last and you didn't have money to get more.: Never true Transportation Needs: No Transportation Needs (04/25/2023) Received from [facility] PRAPARE - Transportation Lack of Transportation (Medical): No Lack of Transportation (Non-Medical): No Housing Stability: Low Risk (04/25/2023) Received from [facility] Housing Stability Vital Sign Unable to Pay [...] Note Beverley Antoine 59 y.o. female CSN: [id number] Admission: 12/17/2024 5:11 AM Primary Problem: CAD [...] Diagnoses: Pre-op Diagnosis Coronary artery disease involving [place] coronary artery of [place] heart with angina pectoris (CMS/HCC) Post-op Diagnosis Coronary artery disease involving [place] coronary artery of [place] heart with angina pectoris (CMS/HCC) Procedure(s): Median [...] - Primary * Mo Jaeger - Assisting Distillery Manager(s): * Dawson Mclaughlin MD - Resident - Assisting * Renuka Lowe DO - Resident - Assisting Alhaji Jaeger PAC performed endoscopic vein harvest Dawson Mclaughlin MD PGY 6 was 1st staff assistant for the entire case Renuka Lowe OD [...] on the small size as were the [place] vessels. The patient from cardiopulmonary bypass uneventfully. She appeared to have mild aortic regurgitation. Her lungs met in the midline on top of the heart consistent with COPD Indications: Beverley Antoine is an 59 y.o. female who is having surgery for Coronary artery disease involving [place] coronary artery of [place] heart with angina pectoris (CMS/HCC). She was referred to our attention by Dr. Augustin Ashraf Advertising Manager Juan C Smith . She was experiencing [...] was induced, monitoring lines were placed, a Winters-Valorie catheter was floated into position and a [...] became bradycardic. Cold oxygenated blood antegrade cardioplegia was infused. Ice was placed on the right ventricle. The heart fibrillated. An aortic cross-clamp was placed. 1 L of cold oxygenated blood cardioplegia was infused resulting in asystole. From this point forward cardioplegia was administered every 20 minutes throughout the entire cross-clamp or as needed for electrical or were mechanical cardiac activity. Right [...] again lifted and anastomotic sites reviewed. 1-36 Telugu mediastinal tube was placed, 1-28 Telugu left pleural tube was placed.Chest tubes and pacing wires were secured to the anterior abdominal wall. The sternum was reapproximated with 6. Vphhcm-co-rtots stainless steel wires, the fascia was closed [...] Problem List Diagnosis Date Noted CAD in [place] artery 12/17/2024 Cancer ([facility] [facility] [place] 11/[place]2024 CAD (coronary artery disease) 11/07/2024 Angina pectoris 11/07/2024 Carpal tunnel syndrome 11/07/2024 HLD (hyperlipidemia) 11/07/2024 Vitamin D deficiency 11/07/2024 Bipolar affective disorder ([facility]) 11/07/2024 [place] 11/07/2024 [place]ures [place] 11/07/2024 Insomnia 11/07/2024 [place] cancer [place] [place] 11/07/2024 Anxiety 11/07/2024 Tobacco dependence 11/07/2024 Chronic obstructive pulmonary disease with (acute) exacerbation ([facility]) 03/07/2023 Chronic systolic HF (heart failure) ([facility]) 02/16/2022 Depression 08/11/2017 S/P total knee replacement, left 08/11/2017 Medical History: Past Medical History Pertinent Negatives[1] Surgical History: Surgical History[2] Social History: Tobacco: Tobacco Use: High Risk (12/13/2024) Patient History Smoking Tobacco Use: Every Day Smokeless Tobacco Use: Never Passive Exposure: Not on file Alcohol: Alcohol Use: Not At Risk (04/25/2023) Received from [employer]-[facility] Q1: How often do you have [...] Toro MD cholecalciferol (Vitamin D-3) 250 MCG (75206 UT) capsule Take 1 capsule by mouth [...] times a day. Lela Toro MD Tiotropium [place] Monohydrate ([employer] [place]) Inhale 1 puff [...] Cardiac Cath Results: Ostial L main =60-70% ROCK DUST SPRAYER of RCA Impression: Beverley Antoine is a [...] Cardiac Rehab Outpatient Referral Routine CAD in [place] artery 1 Occurrences starting 12/17/2024 until 06/20/2026 [...] PEP THERAPY Routine 12/18/2024 12:00 AM EDT [facility], ADDL 30 MIN Routine 12/17/2024 [...] UNSOLICITED RESULTS Routine 12/17/2024 4:52 PM EDT [facility], E/M 30-74 MINUTES Routine 12/17/2024 4:22 PM EDT CAD in [place] artery SHAHEEN AURIS SURVEILLANCE BY PCR Routine [...] PANEL, PLASMA Routine 12/17/2024 7:23 AM EDT [place] CABG, ARTERIAL, SINGLE 12/17/2024 7:18 AM EDT Coronary artery disease involving [place] coronary artery of [place] heart with angina pectoris (CMS/HCC) POCT GLUCOSE METER UNSOLICITED RESULTS Routine 12/17/2024 [...] Mike Sheffield MD on 12/21/2024 10:00 AM Andrew SAHA IMG XR PROCEDURES Final Res ult * (ABNORMAL) Phosphorus (12/21/2024 3:37 AM EDT) Phosphorus, Plasma 1.7(L) 2.5 - 4.5 mg/dL 12/21/2024 4:56 AM EDT [facility] Blood Venous blood specimen / Unknown Venipuncture / Unknown 12/21/2024 3:37 AM EDT 12/21/2024 4:20 AM EDT Boris Al MD LAB BLOOD ORDERABLES Final R esult Performing Organization Address [facility]/ZIP Co de Phone Number [facility] [address] [place] [address] * (ABNORMAL) Magnesium (12/21/2024 3:37 AM EDT) Magnesium, Plasma 1.8(L) 1.9 - 2.4 mg/dL 12/21/2024 4:56 AM EDT [facility] Blood Venous blood specimen / Unknown Venipuncture / Unknown 12/21/2024 3:37 AM EDT 12/21/2024 4:20 AM EDT Boris Al MD LAB BLOOD ORDERABLES Final R esult [facility] [address] [place] [address] * (ABNORMAL) CBC (12/21/2024 3:37 AM EDT) WBC Count 7.29 3.70 - 10.30 10*3/uL LAB HEMATOLOGY METHOD 12/21/2024 4:31 AM EDT [facility] RBC Count 2.78(L) 3.90 - 5.20 10*6/uL LAB HEMATOLOGY METHOD 12/21/2024 4:31 AM EDT [facility] HGB 8.7(L) 11.2 - 15.7 g/dL LAB HEMATOLOGY METHOD 12/21/2024 4:31 AM EDT [facility] HCT 26.0(L) 34.0 - 45.0 % LAB HEMATOLOGY METHOD 12/21/2024 4:31 AM EDT [facility] Platelet Count 133(L) 155 - 369 10*3/uL LAB HEMATOLOGY METHOD 12/21/2024 4:31 AM EDT [facility] MCV 94 79 - 98 fL LAB HEMATOLOGY METHOD 12/21/2024 4:31 AM EDT [facility] MCH 31.3 26.0 - 32.0 pg LAB HEMATOLOGY METHOD 12/21/2024 4:31 AM EDT [facility] MCHC 33.5 30.7 - 35.5 g/dL LAB HEMATOLOGY METHOD 12/21/2024 4:31 AM EDT [facility] RDW 16.3(H) 11.5 - 14.5 % LAB HEMATOLOGY METHOD 12/21/2024 4:31 AM EDT [facility] MPV 11.4 8.8 - 12.5 fL LAB HEMATOLOGY METHOD 12/21/2024 4:31 AM EDT [facility] nRBC 0.0 <=0.0 per 100 WBCs LAB HEMATOLOGY METHOD 12/21/2024 4:31 AM EDT [facility] Blood Venous blood specimen / Unknown Venipuncture / Unknown 12/21/2024 3:37 AM EDT 12/21/2024 4:19 AM EDT us Boris Al MD LAB BLOOD ORDERABLES Final R esult [facility] [address] [place] [address] * (ABNORMAL) Basic metabolic panel (12/21/2024 3:37 AM EDT) Glucose, Plasma 113(H) 74 - 99 mg/dL 12/21/2024 4:56 AM EDT [facility] BUN, Plasma 15 8 - 23 mg/dL 12/21/2024 4:56 AM EDT [facility] Creatinine, Plasma 0.56(L) 0.60 - 1.10 mg/dL 12/21/2024 4:56 AM EDT [facility] BUN/Creatinine Ratio 27 12/21/2024 4:56 AM EDT [facility] Sodium, Plasma 137 136 - 145 mmol/L 12/21/2024 4:56 AM EDT [facility] Potassium, Plasma 3.5(L) 3.6 - 4.9 mmol/L 12/21/2024 4:56 AM EDT [facility] Chloride, Plasma 104 97 - 107 mmol/L 12/21/2024 4:56 AM EDT [facility] CO2, Plasma 24 22 - 29 mmol/L 12/21/2024 4:56 AM EDT [facility] Anion Gap 9 6 - 16 mmol/L 12/21/2024 4:56 AM EDT [facility] Total Calcium, Plasma 8.0(L) 8.9 - 10.2 mg/dL 12/21/2024 4:56 AM EDT [facility] eGFRcr 104.6 mL/min/1.7 3m*2 12/21/2024 4:56 AM EDT [facility] Comment:Reported eGFRcr in m L/min/1.73m2 is based the CKD-EPI 2020 equation that does not use a race coefficient. Blood Venous blood specimen / Unknown Venipuncture / Unknown 12/21/2024 3:37 AM EDT 12/21/2024 4:20 AM EDT us Boris Al MD LAB BLOOD ORDERABLES Final R esult [facility] [address] [place] [address] * XR Chest 1 View (12/20/2024 6:19 [...] signing this report, I, the attending physician, attsherithat I have personally reviewed the images/data for the aboveexamination(s) and agree with the final edited report. Drafted by Alvin Cespedes MD on 12/20/2024 9:12 AM Final report signed by Mike Sheffield MD on 12/20/2024 9:51 AM us Boris Al MD IMG XR PROCEDURES Final Resu lt * (ABNORMAL) Phosphorus (12/20/2024 4:41 AM EDT) Phosphorus, Plasma 2.2(L) 2.5 - 4.5 mg/dL 12/20/2024 5:27 AM EDT [facility] Blood Venous blood specimen / Unknown Venipuncture / Unknown 12/20/2024 4:41 AM EDT 12/20/2024 4:55 AM EDT Boris Al MD LAB BLOOD ORDERABLES Final R esult [facility] [address] [place] [address] * (ABNORMAL) Magnesium (12/20/2024 4:41 AM EDT) [facility] Magnesium, Plasma 1.8(L) 1.9 - 2.4 mg/dL 12/20/2024 5:27 AM EDT [facility] Blood Venous blood specimen / Unknown Venipuncture / Unknown 12/20/2024 4:41 AM EDT 12/20/2024 4:55 AM EDT Boris Al MD LAB BLOOD ORDERABLES Final R esult Performing Organization Address City/[facility]/ZIP Co de Phone Number [facility] [address] [place] [address] * (ABNORMAL) CBC (12/20/2024 4:41 AM EDT) [facility] WBC Count 9.30 3.70 - 10.30 10*3/uL LAB HEMATOLOGY METHOD 12/20/2024 5:16 AM EDT [facility] RBC Count 2.94(L) 3.90 - 5.20 10*6/uL LAB HEMATOLOGY METHOD 12/20/2024 5:16 AM EDT [facility] HGB 9.1(L) 11.2 - 15.7 g/dL LAB HEMATOLOGY METHOD 12/20/2024 5:16 AM EDT [facility] HCT 27.3(L) 34.0 - 45.0 % LAB HEMATOLOGY METHOD 12/20/2024 5:16 AM EDT [facility] Platelet Count 110(L) 155 - 369 10*3/uL LAB HEMATOLOGY METHOD 12/20/2024 5:16 AM EDT [facility] MCV 93 79 - 98 fL LAB HEMATOLOGY METHOD 12/20/2024 5:16 AM EDT [facility] MCH 31.0 26.0 - 32.0 pg LAB HEMATOLOGY METHOD 12/20/2024 5:16 AM EDT [facility] MCHC 33.3 30.7 - 35.5 g/dL LAB HEMATOLOGY METHOD 12/20/2024 5:16 AM EDT [facility] RDW 16.5(H) 11.5 - 14.5 % LAB HEMATOLOGY METHOD 12/20/2024 5:16 AM EDT [facility] MPV 12.0 8.8 - 12.5 fL LAB HEMATOLOGY METHOD 12/20/2024 5:16 AM EDT [facility] nRBC 0.0 <=0.0 per 100 WBCs LAB HEMATOLOGY METHOD 12/20/2024 5:16 AM EDT [facility] Blood Venous blood specimen / Unknown Venipuncture / Unknown 12/20/2024 4:41 AM EDT 12/20/2024 4:58 AM EDT us Boris Al MD LAB BLOOD ORDERABLES Final R esult [facility] [address] [place] [address] * (ABNORMAL) Basic metabolic panel (12/20/2024 4:41 AM EDT) Glucose, Plasma 105(H) 74 - 99 mg/dL 12/20/2024 5:27 AM EDT [facility] BUN, Plasma 17 8 - 23 mg/dL 12/20/2024 5:27 AM EDT [facility] Creatinine, Plasma 0.64 0.60 - 1.10 mg/dL 12/20/2024 5:27 AM EDT [facility] BUN/Creatinine Ratio 12/20/2024 5:27 AM EDT [facility] Sodium, Plasma 137 136 - 145 mmol/L 12/20/2024 5:27 AM EDT [facility] Potassium, Plasma 3.2(L) 3.6 - 4.9 mmol/L 12/20/2024 5:27 AM EDT [facility] Chloride, Plasma 98 97 - 107 mmol/L 12/20/2024 5:27 AM EDT [facility] CO2, Plasma 27 22 - 29 mmol/L 12/20/2024 5:27 AM EDT [facility] Anion Gap 12 6 - 16 mmol/L 12/20/2024 5:27 AM EDT [facility] Total Calcium, Plasma 8.8(L) 8.9 - 10.2 mg/dL 12/20/2024 5:27 AM EDT [facility] eGFRcr 101.3 mL/min/1.7 3m*2 12/20/2024 5:27 AM EDT [facility] Comment:Reported eGFRcr in m L/min/1.73m2 is based the CKD-EPI 2020 equation that does not use a race coefficient. Blood Venous blood specimen / Unknown Venipuncture / Unknown 12/20/2024 4:41 AM EDT 12/20/2024 4:55 AM EDT us Boris Al MD LAB BLOOD ORDERABLES Final R esult Performing Organization Address City/[facility] Co de Phone Number [facility] [address] [place] [address] * (ABNORMAL) N-Terminal Probnp, Plasma (12/20/2024 4:41 AM EDT) N-Terminal, PROBNP, Plasma 4,401(H) 0 - 899 pg/mL 12/20/2024 5:27 AM EDT [facility] Blood Venous blood specimen / Unknown Venipuncture / Unknown 12/20/2024 4:41 AM EDT 12/20/2024 4:55 AM EDT us Jeannette García APRN LAB BLOOD ORDERABLES Final R esult Performing Organization Address City/[facility]/ZIP Co de Phone Number [facility] [address] [place] [address] * ECG Adult (12/19/2024 6:09 PM EDT) EKG DIAGNOSIS CLASS Abnormal MUSE ECG Ventricular Rate 89 BPM MUSE ECG Atrial Rate 89 BPM MUSE ECG NJ Interval 168 ms MUSE ECG QRSD Interval 104 ms MUSE ECG QT Interval 394 ms MUSE ECG QTC Interval 479 ms MUSE ECG P Bruner 50 degrees MUSE ECG R Bruner 49 degrees MUSE ECG T Wave Bruner 108 degrees MUSE ECG Diagnosis Normal sinus rhythm MUSE ECG Diagnosis Possible Inferior infarct , age undetermined MUSE ECG Diagnosis Abnormal ECG MUSE ECG Diagnosis MUSE ECG Diagnosis Confirmed by Mo Evans ([id number]) on 12/20/2024 9:39:16 AM MUSE ECG 12/19/2024 6:09 PM EDT 12/20/2024 9:39 AM EDT us Jeannette Baljit García APRN ECG ORDERABLES Final Result MUSE ECG * (ABNORMAL) POCT glucose meter (12/19/2024 5:24 PM EDT) POCT Glucose 142(H) 74 - 99 mg/dL 12/19/2024 5:27 PM EDT [facility] Comment:Accuracy of [...] Comment 12/19/2024 5:27 PM EDT [facility] [employer] Meenakshi Sebastian 12/20/19 25 5:27 PM EDT [facility] Device ID [id number] 12/19/2024 5:27 PM EDT [facility] Specimen Type POC Capillary 12/19/2024 5:27 PM EDT [facility] Blood Capillary blood specimen / Unknown 12/19/2024 5:24 PM EDT 12/19/2024 5:27 PM EDT us Antonette Hernandez MD LAB POINT OF CARE TE ST DOCKED DEVICE UNSOLICITED RESULTS Final Result [facility] [address] [place] [address] * (ABNORMAL) POCT glucose meter (12/19/2024 2:24 [...] Comment 12/19/2024 2:26 PM EDT [facility] [employer] [facility] Bouchra Rees 2:26 PM EDT [facility] Device ID [id number] 12/19/2024 2:26 PM EDT [facility] Specimen Type POC Capillary 12/19/2024 2:26 PM EDT [facility] Blood Capillary blood specimen / Unknown 12/19/2024 2:24 PM EDT 12/19/2024 2:26 PM EDT us Antonette Hernandez MD LAB POINT OF CARE TE ST DOCKED DEVICE UNSOLICITED RESULTS Final Result Performing Organization Address City/State/[facility] Co de Phone Number [facility] [address] [place] [address] * (ABNORMAL) POCT glucose meter (12/19/2024 8:25 AM EDT) [facility] POCT Glucose 133(H) 74 - 99 mg/dL 12/19/2024 8:27 AM EDT [facility] Comment:Accuracy of a [...] Comment 12/19/2024 8:27 AM EDT [facility] [employer] April Burt 12/19/2024 8:27 AM EDT [facility]ALTH[facility]ARE LAB Device ID [id number] 12/19/2024 8:27 AM EDT [facility] Specimen Type POC Capillary 12/19/2024 8:27 AM EDT [facility] Blood Capillary blood specimen / Unknown 12/19/2024 8:25 AM EDT 12/19/2024 8:27 AM EDT us Boris Al MD LAB POINT OF CARE TE ST DOCKED DEVICE UNSOLICITED RESULTS Final Result [facility] [address] [place] [address] * XR Abdomen 1 View (12/19/2024 2:34 [...] Luis Jang MD on 12/19/2024 6:28 AM us Shazia Newman IMPROVEMENT NURSE IMG XR PROCEDURES Final Res ult * [...] - 899 pg/mL 12/19/2024 1:59 PM EDT [facility] Blood Venous blood specimen / Unknown Venipuncture / Unknown 12/19/2024 1:26 AM EDT 12/19/2024 1:35 AM EDT us Jeannette Baljit García APRN LAB BLOOD ORDERABLES Final R esult [facility] [address] [place] [address] * (ABNORMAL) Lipid panel (12/19/2024 1:26 AM EDT) Cholesterol, Plasma 96 <200 mg/dL 12/19/2024 1:59 PM EDT [facility] Comment: Cholesterol Reference Range (age >17 years): Desirable <200 mg/dL Borderline 200 to 239 mg/dL Undesirable >239 mg/dL HDL 43(L) >=50 mg/dL 12/19/2024 1:59 PM EDT [facility] Comment: HDL Cholesterol Reference Ranges (age >17 years): Female, acceptable > or = 50 mg/dL Male, acceptable > or = 40 mg/dL Triglycerides, Plasma 105 <150 mg/dL 12/19/2024 1:59 PM EDT [facility] Comment: Triglyceride Reference Range (age >17 years): Desirable: <150 mg/dL Borderline high: 150 to 199 mg/dL High: 200 to 499 mg/dL Very high: >499 mg/dL Increased risk of pancreatitis: >1000 mg/dL Cholesterol/HDL Ratio 2 12/19/2024 1:59 PM EDT [facility] LDL, Calculated 33 <100 mg/dL 1:59 PM EDT [facility] Comment: LDL Cholesterol Reference Range [...] 12 hours? Unknown 12/19/2024 1:59 PM EDT [facility] Blood Venous blood specimen / Unknown Venipuncture / Unknown 12/19/2024 1:26 AM EDT 12/19/2024 1:35 AM EDT Jeannette García APRN LAB BLOOD ORDERABLES Final R esult Performing Organization Address City/[facility]/ZIP Co de Phone Number [facility] [address] [place] [address] * Phosphorus (12/19/2024 1:26 AM EDT) Phosphorus, Plasma 3.4 2.5 - 4.5 mg/dL 12/19/2024 2:18 AM EDT [facility] Blood Venous blood specimen / Unknown Venipuncture / Unknown 12/19/2024 1:26 AM EDT 12/19/2024 1:35 AM EDT Boris Al MD LAB BLOOD ORDERABLES Final R esult Performing Organization Address [facility] Co de Phone Number [facility] [address] [place] [address] * (ABNORMAL) Magnesium (12/19/2024 1:26 AM EDT) Magnesium, Plasma 2.5(H) 1.9 - 2.4 mg/dL 12/19/2024 2:18 AM EDT [facility] Blood Venous blood specimen / Unknown Venipuncture / Unknown 12/19/2024 1:26 AM EDT 12/19/2024 1:35 AM EDT Boris Al MD LAB BLOOD ORDERABLES Final R esult Performing Organization Address [facility]/ZIP Co de Phone Number [facility] [address] [place] [address] * (ABNORMAL) CBC (12/19/2024 1:26 AM EDT) WBC Count 13.36(H) 3.70 - 10.30 10*3/uL LAB HEMATOLOGY METHOD 12/19/2024 1:45 AM EDT [facility] RBC Count 3.12(L) 3.90 - 5.20 10*6/uL LAB HEMATOLOGY METHOD 12/19/2024 1:45 AM EDT [facility] HGB 9.8(L) 11.2 - 15.7 g/dL LAB HEMATOLOGY METHOD 12/19/2024 1:45 AM EDT [facility] HCT 28.7(L) 34.0 - 45.0 % LAB HEMATOLOGY METHOD 12/19/2024 1:45 AM EDT [facility] Platelet Count 111(L) 155 - 369 10*3/uL LAB HEMATOLOGY METHOD 12/19/2024 1:45 AM EDT [facility] MCV 92 79 - 98 fL LAB HEMATOLOGY METHOD 12/19/2024 1:45 AM EDT [facility] MCH 31.4 26.0 - 32.0 pg LAB HEMATOLOGY METHOD 12/19/2024 1:45 AM EDT [facility] MCHC 34.1 30.7 - 35.5 g/dL LAB HEMATOLOGY METHOD 12/19/2024 1:45 AM EDT [facility] RDW 18.2(H) 11.5 - 14.5 % LAB HEMATOLOGY METHOD 12/19/2024 1:45 AM EDT [facility] MPV 11.7 8.8 - 12.5 fL LAB HEMATOLOGY METHOD 12/19/2024 1:45 AM EDT [facility] nRBC 0.0 <=0.0 per 100 WBCs LAB HEMATOLOGY METHOD 12/19/2024 1:45 AM EDT [facility] Blood Venous blood specimen / Unknown Venipuncture / Unknown 12/19/2024 1:26 AM EDT 12/19/2024 1:34 AM EDT us Boris Al MD LAB BLOOD ORDERABLES Final R esult [facility] [address] [place] [address] * (ABNORMAL) Basic metabolic panel (12/19/2024 1:26 AM EDT) Glucose, Plasma 132(H) 74 - 99 mg/dL 12/19/2024 2:18 AM EDT [facility] BUN, Plasma 15 8 - 23 mg/dL 12/19/2024 2:18 AM EDT [facility] Creatinine, Plasma 0.71 0.60 - 1.10 mg/dL 12/19/2024 2:18 AM EDT [facility] BUN/Creatinine Ratio 21 12/19/2024 2:18 AM EDT [facility] Sodium, Plasma 140 136 - 145 mmol/L 12/19/2024 2:18 AM EDT [facility] Potassium, Plasma 4.2 3.6 - 4.9 mmol/L 12/19/2024 2:18 AM EDT [facility] Chloride, Plasma 106 97 - 107 mmol/L 12/19/2024 2:18 AM EDT [facility] CO2, Plasma 26 22 - 29 mmol/L 12/19/2024 2:18 AM EDT [facility] Anion Gap 8 6 - 16 mmol/L 12/19/2024 2:18 AM EDT [facility] Total Calcium, Plasma 8.4(L) 8.9 - 10.2 mg/dL 12/19/2024 2:18 AM EDT [facility] eGFRcr 97.5 mL/min/1.7 3m*2 12/19/2024 2:18 AM EDT [facility] Comment:Reported eGFRcr in m L/min/1.73m2 is based the CKD-EPI 2020 equation that does not use a race coefficient. Blood Venous blood specimen / Unknown Venipuncture / Unknown 12/19/2024 1:26 AM EDT 12/19/2024 1:35 AM EDT us Boris Al MD LAB BLOOD ORDERABLES Final R esult [facility] [address] [place] [address] * (ABNORMAL) POCT glucose meter (12/18/2024 10:27 PM EDT) POCT Glucose 142(H) 74 - 99 mg/dL 12/18/2024 10:28 PM EDT [facility] Comment:Accuracy of a glucos e result [...] for testing. Comment 12/18/2024 10:28 PM EDT [facility] [employer] Lela Khan 12/19/19 10:28 PM EDT [facility]ALTH[facility]ARE LAB Device ID [id number] 12/18/2024 10:28 PM EDT [facility] Specimen Type POC Capillary 12/18/2024 10:28 PM EDT [facility] Blood Capillary blood specimen / Unknown 12/18/2024 10:27 PM EDT 12/18/2024 10:28 PM EDT Boris Al MD LAB POINT OF CARE TE ST DOCKED DEVICE UNSOLICITED RESULTS Final Result Performing Organization Address City/State/[facility] Co de Phone Number [facility] [address] [place] [address] * (ABNORMAL) POCT glucose meter (12/18/2024 6:23 PM EDT) [facility] POCT Glucose 148(H) 74 - 99 mg/dL 12/18/2024 6:25 PM EDT [facility] Comment:Accuracy of a [...] Comment 12/18/2024 6:25 PM EDT [facility] [employer] [facility] Sunny Swanson 12/18/2024 6:25 PM EDT [facility]ALTH[facility]ARE LAB Device ID [id number] 12/18/2024 6:25 PM EDT [facility] Specimen Type POC Capillary 12/18/2024 6:25 PM EDT [facility] Blood Capillary blood specimen / Unknown 12/18/2024 6:23 PM EDT 12/18/2024 6:25 PM EDT Boris Al MD LAB POINT OF CARE TE ST DOCKED DEVICE UNSOLICITED RESULTS Final Result [facility] [address] [place] [address] * (ABNORMAL) POCT glucose meter (12/18/2024 1:18 PM EDT) Pathologist [facility] [place] POCT Glucose 140(H) 74 - 99 mg/dL [...] for testing. Comment 12/18/2024 1:20 PM EDT [facility] [employer] [facility] Bouchra Rees 1:20 PM EDT [facility] LAB Device ID [id number] 12/18/2024 1:20 PM EDT [facility] Specimen Type POC Capillary 12/18/2024 1:20 PM EDT [facility] Blood Capillary blood specimen / Unknown 12/18/2024 1:18 PM EDT 12/18/2024 1:20 PM EDT Boris Al MD LAB POINT OF CARE TE ST DOCKED DEVICE UNSOLICITED RESULTS Final Result [facility] [address] [place] [address] * (ABNORMAL) POCT glucose meter (12/18/2024 9:50 AM EDT) Pathologist [facility] [place] POCT Glucose 152(H) 74 - 99 mg/dL [...] 12/18/2024 9:51 AM EDT [facility] [employer] [facility] Bouchra Rees 9:51 AM EDT [facility]ALTH[facility]ARE LAB Device ID [id number] 12/18/2024 9:51 AM EDT [facility] Specimen Type POC Arterial 12/18/2024 9:51 AM EDT [facility] Blood Arterial blood specimen / Unknown 12/18/2024 9:50 AM EDT 12/18/2024 9:51 AM EDT us Boris Al MD LAB POINT OF CARE TE ST DOCKED DEVICE UNSOLICITED RESULTS Final Result Performing Organization Address City/[facility]/ZIP Co de Phone Number [facility] [address] [place] [address] * (ABNORMAL) Magnesium, Plasma (12/18/2024 9:50 AM EDT) Magnesium, Plasma 3.0(H) 1.9 - 2.4 mg/dL 12/18/2024 10:43 AM EDT [facility] Blood Arterial blood specimen / Unknown Venipuncture / Unknown 12/18/2024 9:50 AM EDT 12/18/2024 10:12 AM EDT us Shazia Newman APRN LAB BLOOD ORDERABLES Final Result Performing Organization Address City/[facility]/ZIP Co de Phone Number [facility] [address] [place] [address] * (ABNORMAL) Renal Function Panel, Plasma (12/18/2024 9:50 AM EDT) Glucose, Plasma 148(H) 74 - 99 mg/dL 12/18/2024 10:43 AM EDT [facility] BUN, Plasma 20 8 - 23 mg/dL 12/18/2024 10:43 AM EDT [facility] Creatinine, Plasma 0.94 0.60 - 1.10 mg/dL 12/18/2024 10:43 AM EDT [facility] BUN/Creatinine Ratio 21 12/18/2024 10:43 AM EDT [facility] Sodium, Plasma 138 136 - 145 mmol/L 12/18/2024 10:43 AM EDT [facility] Potassium, Plasma 4.3 3.6 - 4.9 mmol/L 12/18/2024 10:43 AM EDT [facility] Chloride, Plasma 104 97 - 107 mmol/L 12/18/2024 10:43 AM EDT [facility] CO2, Plasma 21(L) 22 - 29 mmol/L 12/18/2024 10:43 AM EDT [facility] Anion Gap 13 6 - 16 mmol/L 12/18/2024 10:43 AM EDT [facility] Total Calcium, Plasma 7.8(L) 8.9 - 10.2 mg/dL 12/18/2024 10:43 AM EDT [facility] Phosphorus, Plasma 5.3(H) 2.5 - 4.5 mg/dL 12/18/2024 10:43 AM EDT [facility] Albumin, Plasma 3.8 3.5 - 5.2 g/dL 12/18/2024 10:43 AM EDT [facility] eGFRcr 69.6 mL/min/1.7 3m*2 12/18/2024 10:43 AM EDT [facility] Comment:Reported eGFRcr in m L/min/1.73m2 is based the CKD-EPI 2020 equation that does not use a race coefficient. Blood Arterial blood specimen / Unknown Venipuncture / Unknown 12/18/2024 9:50 AM EDT 12/18/2024 10:12 AM EDT Shazia Newman APRN LAB BLOOD ORDERABLES Final Result [facility] [address] [place] [address] * (ABNORMAL) POCT glucose meter (12/18/2024 6:27 AM EDT) [facility] POCT Glucose 174(H) 74 - 99 mg/dL 12/18/2024 6:28 AM EDT [facility] Comment:Accuracy of a glucos e result [...] Comment 12/18/2024 6:28 AM EDT [facility] [employer] [facility] April Morris 12/18/2024 6:28 AM EDT [facility] Device ID [id number] 12/18/2024 6:28 AM EDT [facility] Specimen Type POC Arterial 12/18/2024 6:28 AM EDT [facility] Blood Arterial blood specimen / Unknown 12/18/2024 6:27 AM EDT 12/18/2024 6:28 AM EDT us Boris Al MD LAB POINT OF CARE TE ST DOCKED DEVICE UNSOLICITED RESULTS Final Result Performing Organization Address [facility] Co de Phone Number [facility] [address] [place] [address] * ECG Adult - POD 1 (12/18/2024 3:51 AM EDT) EKG DIAGNOSIS CLASS Normal MUSE ECG Ventricular Rate 96 BPM MUSE ECG Atrial Rate 96 BPM MUSE ECG [place] Interval 146 ms MUSE ECG QRSD Interval 92 ms MUSE ECG QT Interval 398 ms MUSE ECG QTC Interval 502 ms MUSE ECG P Bruner 32 degrees MUSE ECG R Bruner 18 degrees MUSE ECG T Wave Bruner 37 degrees MUSE ECG Diagnosis Poor data quality, interpretation may be adversely affected MUSE ECG Diagnosis Normal sinus rhythm MUSE ECG Diagnosis Normal ECG MUSE ECG Diagnosis MUSE ECG Diagnosis Confirmed by Harpreet Gresham ([id number]) on 12/18/2024 3:52:14 PM MUSE ECG 12/18/2024 3:51 AM EDT 12/18/2024 3:52 PM EDT us Boris Al MD ECG ORDERABLES Final Result Performing Organization Address City/[facility] Co de Phone Number MUSE ECG [...] - 4.5 mg/dL 12/18/2024 1:24 AM EDT [facility] Blood Venous blood specimen / Unknown Venipuncture / Unknown 12/18/2024 12:42 AM EDT 12/18/2024 12:48 AM EDT Boris Al MD LAB BLOOD ORDERABLES Final R esult Performing Organization Address [facility]/ZIP Co de Phone Number [facility] [address] [place] [address] * (ABNORMAL) Magnesium (12/18/2024 12:42 AM EDT) Magnesium, Plasma 3.3(H) 1.9 - 2.4 mg/dL 12/18/2024 1:24 AM EDT [facility] Blood Venous blood specimen / Unknown Venipuncture / Unknown 12/18/2024 12:42 AM EDT 12/18/2024 12:48 AM EDT Boris Al MD LAB BLOOD ORDERABLES Final R esult Performing Organization Address City/[facility]/ZIP Co de Phone Number [facility] [address] [place] [address] * (ABNORMAL) CBC (12/18/2024 12:42 AM EDT) WBC Count 13.44(H) 3.70 - 10.30 10*3/uL LAB HEMATOLOGY METHOD 12/18/2024 12:58 AM EDT [facility] RBC Count 3.38(L) 3.90 - 5.20 10*6/uL LAB HEMATOLOGY METHOD 12/18/2024 12:58 AM EDT [facility] HGB 10.6(L) 11.2 - 15.7 g/dL LAB HEMATOLOGY METHOD 12/18/2024 12:58 AM EDT [facility] HCT 30.9(L) 34.0 - 45.0 % LAB HEMATOLOGY METHOD 12/18/2024 12:58 AM EDT [facility] Platelet Count 134(L) 155 - 369 10*3/uL LAB HEMATOLOGY METHOD 12/18/2024 12:58 AM EDT [facility] MCV 91 79 - 98 fL LAB HEMATOLOGY METHOD 12/18/2024 12:58 AM EDT [facility] MCH 31.4 26.0 - 32.0 pg LAB HEMATOLOGY METHOD 12/18/2024 12:58 AM EDT [facility] MCHC 34.3 30.7 - 35.5 g/dL LAB HEMATOLOGY METHOD 12/18/2024 12:58 AM EDT [facility] RDW 19.1(H) 11.5 - 14.5 % LAB HEMATOLOGY METHOD 12/18/2024 12:58 AM EDT [facility] MPV 11.4 8.8 - 12.5 fL LAB HEMATOLOGY METHOD 12/18/2024 12:58 AM EDT [facility] nRBC 0.0 <=0.0 per 100 WBCs LAB HEMATOLOGY METHOD 12/18/2024 12:58 AM EDT [facility] Blood Venous blood specimen / Unknown Venipuncture / Unknown 12/18/2024 12:42 AM EDT 12/18/2024 12:48 AM EDT us Boris Al MD LAB BLOOD ORDERABLES Final R esult [facility] [address] [place] [address] * (ABNORMAL) Basic metabolic panel (12/18/2024 12:42 AM EDT) Glucose, Plasma 182(H) 74 - 99 mg/dL 12/18/2024 1:24 AM EDT [facility] BUN, Plasma 18 8 - 23 mg/dL 12/18/2024 1:24 AM EDT [facility] Creatinine, Plasma 0.87 0.60 - 1.10 mg/dL 12/18/2024 1:24 AM EDT [facility] BUN/Creatinine Ratio 21 12/18/2024 1:24 AM EDT [facility] Sodium, Plasma 142 136 - 145 mmol/L 12/18/2024 1:24 AM EDT [facility] Potassium, Plasma 4.1 3.6 - 4.9 mmol/L 12/18/2024 1:24 AM EDT [facility] Chloride, Plasma 107 97 - 107 mmol/L 12/18/2024 1:24 AM EDT [facility] CO2, Plasma 21(L) 22 - 29 mmol/L 12/18/2024 1:24 AM EDT [facility] Anion Gap 14 6 - 16 mmol/L 12/18/2024 1:24 AM EDT [facility] Total Calcium, Plasma 7.7(L) 8.9 - 10.2 mg/dL 12/18/2024 1:24 AM EDT [facility] eGFRcr 76.4 mL/min/1.7 3m*2 12/18/2024 1:24 AM EDT [facility] Comment:Reported eGFRcr in m L/min/1.73m2 is based the CKD-EPI 2020 equation that does not use a race coefficient. Blood Venous blood specimen / Unknown Venipuncture / Unknown 12/18/2024 12:42 AM EDT 12/18/2024 12:48 AM EDT us Boris Al MD LAB BLOOD ORDERABLES Final R esult [facility] [address] [place] [address] * Potassium, Plasma (12/18/2024 12:42 AM EDT) Potassium, Plasma 4.1 3.6 - 4.9 mmol/L 12/18/2024 1:24 AM EDT [facility] Blood Venous blood specimen / Unknown Venipuncture / Unknown 12/18/2024 12:42 AM EDT 12/18/2024 12:48 AM EDT us Boris Al MD LAB BLOOD ORDERABLES Final R esult [facility] [address] [place] [address] * (ABNORMAL) Hematocrit (12/18/2024 12:42 AM EDT) HCT 30.9(L) 34.0 - 45.0 % LAB HEMATOLOGY METHOD 12/18/2024 12:58 AM EDT [facility] Blood Venous blood specimen / Unknown Venipuncture / Unknown 12/18/2024 12:42 AM EDT 12/18/2024 12:48 AM EDT Boris Al MD LAB BLOOD ORDERABLES Final R esult Performing Organization Address [facility]/ZIP Co de Phone Number [facility] [address] [place] [address] * (ABNORMAL) Hemoglobin (12/18/2024 12:42 AM EDT) HGB 10.6(L) 11.2 - 15.7 g/dL LAB HEMATOLOGY METHOD 12/18/2024 12:58 AM EDT [facility] Blood Venous blood specimen / Unknown Venipuncture / Unknown 12/18/2024 12:42 AM EDT 12/18/2024 12:48 AM EDT Boris Al MD LAB BLOOD ORDERABLES Final R esult Performing Organization Address [facility] Co de Phone Number [facility] [address] [place] [address] * (ABNORMAL) POCT glucose meter (12/18/2024 12:41 AM EDT) Pathologist [facility] [place] POCT Glucose 195(H) 74 - 99 mg/dL 12/18/2024 12:42 AM EDT [facility] Comment:Accuracy of [...] for testing. Comment 12/18/2024 12:42 AM EDT [facility] [employer] April Morris Christina 12/18/2024 12:42 AM EDT [facility] Device ID [id number] 12/18/2024 12:42 AM EDT [facility] Specimen Type POC Arterial 12/18/2024 12:42 AM EDT [facility] Blood Arterial blood specimen / Unknown 12/18/2024 12:41 AM EDT 12/18/2024 12:42 AM EDT us Boris Al MD LAB POINT OF CARE TE ST DOCKED DEVICE UNSOLICITED RESULTS Final Result [facility] [address] [place] [address] * (ABNORMAL) Blood gas, arterial (12/18/2024 12:41 AM EDT) pH, Arterial 7.33 7.31 - 7.42 LAB HEMATOLOGY METHOD 12/18/2024 1:21 AM EDT [facility] pCO2, Arterial 43 35 - 48 mmHg LAB HEMATOLOGY METHOD 12/18/2024 1:21 AM EDT [facility] pO2, Arterial 107 >80 mmHg LAB HEMATOLOGY METHOD 12/18/2024 1:21 AM EDT [facility] SO2, Measured, Arterial 98 94 - 98 % LAB HEMATOLOGY METHOD 12/18/2024 1:21 AM EDT [facility] Base Excess, Arterial -3.6(L) -2.0 - 3.0 mmol/L LAB HEMATOLOGY METHOD 12/18/2024 1:21 AM EDT [facility] Bicarbonate, Calculated, Arterial 22 22 - 26 mmol/L LAB HEMATOLOGY METHOD 12/18/2024 1:21 AM EDT [facility] Hematocrit, Whole Blood 33.0(L) 34.0 - 45.0 % LAB HEMATOLOGY METHOD 12/18/2024 1:21 AM EDT [facility] Sodium, Whole Blood 140 136 - 145 mmol/L LAB HEMATOLOGY METHOD 12/18/2024 1:21 AM EDT [facility] Potassium, Whole Blood 4.0 3.6 - 4.9 mmol/L LAB HEMATOLOGY METHOD 12/18/2024 1:21 AM EDT [facility] Chloride, Whole Blood 109(H) 97 - 107 mmol/L LAB HEMATOLOGY METHOD 12/18/2024 1:21 AM EDT [facility] Glucose, Whole Blood 182(H) 74 - 99 mg/dL LAB HEMATOLOGY METHOD 12/18/2024 1:21 AM EDT [facility] Ionized Calcium, Whole Blood 3.9(L) 4.6 - 5.1 mg/dL LAB HEMATOLOGY METHOD 12/18/2024 1:21 AM EDT [facility] Lactate, Arterial, Whole Blood 2.9(H) 0.5 - 1.6 mmol/L LAB HEMATOLOGY METHOD 12/18/2024 1:21 AM EDT [facility] Blood Arterial blood specimen / Unknown Arterial Puncture / Unknown 12/18/2024 12:41 AM EDT 12/18/2024 1:20 AM EDT us Boris Al MD LAB BLOOD ORDERABLES Final R esult [facility] [address] [place] [address] * [place] [facility], ADDL 30 MIN (12/17/2024 11:16 [...] * Potassium, Plasma (12/17/2024 8:07 PM EDT) Pathologist [facility] [place] Potassium, Plasma 3.9 3.6 - 4.9 mmol/L 12/17/2024 9:07 PM EDT [facility] Blood Venous blood specimen / Unknown Venipuncture / Unknown 12/17/2024 8:07 PM EDT 12/17/2024 8:43 PM EDT Boris Al MD LAB BLOOD ORDERABLES Final R esult [facility] [address] [place] [address] * (ABNORMAL) Hematocrit (12/17/2024 8:07 PM EDT) [facility] HCT 29.5(L) 34.0 - 45.0 % LAB HEMATOLOGY METHOD 12/17/2024 8:50 PM EDT [facility] Blood Venous blood specimen / Unknown Venipuncture / Unknown 12/17/2024 8:07 PM EDT 12/17/2024 8:43 PM EDT Boris Al MD LAB BLOOD ORDERABLES Final R esult Performing Organization Address [facility]/ZIP Co de Phone Number [facility] [address] [place] [address] * (ABNORMAL) Hemoglobin (12/17/2024 8:07 PM EDT) [facility] HGB 10.2(L) 11.2 - 15.7 g/dL LAB HEMATOLOGY METHOD 12/17/2024 8:50 PM EDT [facility] Blood Venous blood specimen / Unknown Venipuncture / Unknown 12/17/2024 8:07 PM EDT 12/17/2024 8:43 PM EDT us Boris Al MD LAB BLOOD ORDERABLES Final R esult Performing Organization Address City/[facility]/ZIP Co de Phone Number [facility] [address] [place] [address] * (ABNORMAL) Blood gas, arterial (12/17/2024 8:07 PM EDT) pH, Arterial 7.30(L) 7.31 - 7.42 LAB HEMATOLOGY METHOD 12/17/2024 8:46 PM EDT [facility] pCO2, Arterial 46 35 - 48 mmHg LAB HEMATOLOGY METHOD 12/17/2024 8:46 PM EDT [facility] pO2, Arterial 149 >80 mmHg LAB HEMATOLOGY METHOD 12/17/2024 8:46 PM EDT [facility] SO2, Measured, Arterial 99(H) 94 - 98 % LAB HEMATOLOGY METHOD 12/17/2024 8:46 PM EDT [facility] Base Excess, Arterial -3.8(L) -2.0 - 3.0 mmol/L LAB HEMATOLOGY METHOD 12/17/2024 8:46 PM EDT [facility] Bicarbonate, Calculated, Arterial 23 22 - 26 mmol/L LAB HEMATOLOGY METHOD 12/17/2024 8:46 PM EDT [facility] Hematocrit, Whole Blood 31.6(L) 34.0 - 45.0 % LAB HEMATOLOGY METHOD 12/17/2024 8:46 PM EDT [facility] Sodium, Whole Blood 145 136 - 145 mmol/L LAB HEMATOLOGY METHOD 12/17/2024 8:46 PM EDT [facility] Potassium, Whole Blood 3.7 3.6 - 4.9 mmol/L LAB HEMATOLOGY METHOD 12/17/2024 8:46 PM EDT [facility] Chloride, Whole Blood 114(H) 97 - 107 mmol/L LAB HEMATOLOGY METHOD 12/17/2024 8:46 PM EDT [facility] Glucose, Whole Blood 203(H) 74 - 99 mg/dL LAB HEMATOLOGY METHOD 12/17/2024 8:46 PM EDT [facility] Ionized Calcium, Whole Blood 3.8(L) 4.6 - 5.1 mg/dL LAB HEMATOLOGY METHOD 12/17/2024 8:46 PM EDT [facility] Lactate, Arterial, Whole Blood 2.0(H) 0.5 - 1.6 mmol/L LAB HEMATOLOGY METHOD 12/17/2024 8:46 PM EDT [facility] Blood Arterial blood specimen / Unknown Arterial Puncture / Unknown 12/17/2024 8:07 PM EDT 12/17/2024 8:44 PM EDT Boris Al MD LAB BLOOD ORDERABLES Final R esult [facility] [address] [place] [address] * Potassium, Plasma (12/17/2024 6:43 PM EDT) Potassium, Plasma 3.9 3.6 - 4.9 mmol/L 12/17/2024 7:16 PM EDT [facility] Blood Venous blood specimen / Unknown Venipuncture / Unknown 12/17/2024 6:43 PM EDT 12/17/2024 6:52 PM EDT Boris Al MD LAB BLOOD ORDERABLES Final R esult Performing Organization Address City/[facility]/[place] [address] * (ABNORMAL) Hematocrit (12/17/2024 6:43 PM EDT) HCT 29.2(L) 34.0 - 45.0 % LAB HEMATOLOGY METHOD 12/17/2024 7:21 PM EDT [facility] Blood Venous blood specimen / Unknown Venipuncture / Unknown 12/17/2024 6:43 PM EDT 12/17/2024 7:01 PM EDT Boris Al MD LAB BLOOD ORDERABLES Final R esult [facility] [address] [place] [address] * (ABNORMAL) Hemoglobin (12/17/2024 6:43 PM EDT) HGB 10.2(L) 11.2 - 15.7 g/dL LAB HEMATOLOGY METHOD 12/17/2024 7:21 PM EDT [facility] Blood Venous blood specimen / Unknown Venipuncture / Unknown 12/17/2024 6:43 PM EDT 12/17/2024 7:01 PM EDT us Boris Al MD LAB BLOOD ORDERABLES Final R esult [facility] [address] [place] [address] * (ABNORMAL) Blood gas, arterial (12/17/2024 6:43 PM EDT) pH, Arterial 7.31 7.31 - 7.42 LAB HEMATOLOGY METHOD 12/17/2024 6:54 PM EDT [facility] pCO2, Arterial 48 35 - 48 mmHg LAB HEMATOLOGY METHOD 12/17/2024 6:54 PM EDT [facility] pO2, Arterial 170 >80 mmHg LAB HEMATOLOGY METHOD 12/17/2024 6:54 PM EDT [facility] SO2, Measured, Arterial 100(H) 94 - 98 % LAB HEMATOLOGY METHOD 12/17/2024 6:54 PM EDT [facility] Base Excess, Arterial -2.7(L) -2.0 - 3.0 mmol/L LAB HEMATOLOGY METHOD 12/17/2024 6:54 PM EDT [facility] Bicarbonate, Calculated, Arterial 24 22 - 26 mmol/L LAB HEMATOLOGY METHOD 12/17/2024 6:54 PM EDT [facility] Hematocrit, Whole Blood 31.6(L) 34.0 - 45.0 % LAB HEMATOLOGY METHOD 12/17/2024 6:54 PM EDT [facility] Sodium, Whole Blood 145 136 - 145 mmol/L LAB HEMATOLOGY METHOD 12/17/2024 6:54 PM EDT [facility] Potassium, Whole Blood 3.6 3.6 - 4.9 mmol/L LAB HEMATOLOGY METHOD 12/17/2024 6:54 PM EDT [facility] Chloride, Whole Blood 116(H) 97 - 107 mmol/L LAB HEMATOLOGY METHOD 12/17/2024 6:54 PM EDT [facility] Glucose, Whole Blood 176(H) 74 - 99 mg/dL LAB HEMATOLOGY METHOD 12/17/2024 6:54 PM EDT [facility] Ionized Calcium, Whole Blood 4.0(L) 4.6 - 5.1 mg/dL LAB HEMATOLOGY METHOD 12/17/2024 6:54 PM EDT [facility] Lactate, Arterial, Whole Blood 1.6 0.5 - 1.6 mmol/L LAB HEMATOLOGY METHOD 12/17/2024 6:54 PM EDT [facility] Blood Arterial blood specimen / Unknown Arterial Puncture / Unknown 12/17/2024 6:43 PM EDT 12/17/2024 6:52 PM EDT us Boris Al MD LAB BLOOD ORDERABLES Final R esult [facility] [address] [place] [address] * (ABNORMAL) POCT glucose meter (12/17/2024 6:00 PM EDT) [facility] POCT Glucose 176(H) 74 - 99 mg/dL 12/17/2024 6:02 PM EDT [facility] Comment:Accuracy of [...] Comment 12/17/2024 6:02 PM EDT [facility] [employer] Matt Mane 12/17/2024 6:02 PM EDT [facility] Device ID [id number] 12/17/2024 6:02 PM EDT [facility] Specimen Type POC Arterial 12/17/2024 6:02 PM EDT [facility] Blood Arterial blood specimen / Unknown 12/17/2024 6:00 PM EDT 12/17/2024 6:02 PM EDT us Boris Al MD LAB POINT OF CARE TE ST DOCKED DEVICE UNSOLICITED RESULTS Final Result [facility] [address] [place] [address] * (ABNORMAL) Phosphorus (12/17/2024 5:58 PM EDT) [facility] Phosphorus, Plasma 1.3(L) 2.5 - 4.5 mg/dL 12/17/2024 6:38 PM EDT [facility] Blood Venous blood specimen / Unknown Venipuncture / Unknown 12/17/2024 5:58 PM EDT 12/17/2024 6:04 PM EDT Boris Al MD LAB BLOOD ORDERABLES Final R esult Performing Organization Address [facility]/ZIP Co de Phone Number [facility] [address] [place] [address] * (ABNORMAL) Magnesium (12/17/2024 5:58 PM EDT) Magnesium, Plasma 4.5(H) 1.9 - 2.4 mg/dL 12/17/2024 6:38 PM EDT [facility] Blood Venous blood specimen / Unknown Venipuncture / Unknown 12/17/2024 5:58 PM EDT 12/17/2024 6:04 PM EDT us Boris Al MD LAB BLOOD ORDERABLES Final R esult Performing Organization Address City/[facility]/ZIP Co de Phone Number [facility] [address] [place] [address] * (ABNORMAL) Basic metabolic panel (12/17/2024 5:58 PM EDT) Glucose, Plasma 169(H) 74 - 99 mg/dL 12/17/2024 6:38 PM EDT [facility] BUN, Plasma 16 8 - 23 mg/dL 12/17/2024 6:38 PM EDT [facility] Creatinine, Plasma 0.74 0.60 - 1.10 mg/dL 12/17/2024 6:38 PM EDT [facility] BUN/Creatinine Ratio 22 12/17/2024 6:38 PM EDT [facility] Sodium, Plasma 147(H) 136 - 145 mmol/L 12/17/2024 6:38 PM EDT [facility] Potassium, Plasma 3.7 3.6 - 4.9 mmol/L 12/17/2024 6:38 PM EDT [facility] Chloride, Plasma 115(H) 97 - 107 mmol/L 12/17/2024 6:38 PM EDT [facility] CO2, Plasma 23 22 - 29 mmol/L 12/17/2024 6:38 PM EDT [facility] Anion Gap 9 6 - 16 mmol/L 12/17/2024 6:38 PM EDT [facility] Total Calcium, Plasma 7.1(L) 8.9 - 10.2 mg/dL 12/17/2024 6:38 PM EDT [facility] eGFRcr 92.8 mL/min/1.7 3m*2 12/17/2024 6:38 PM EDT [facility] Comment:Reported eGFRcr in m L/min/1.73m2 is based the CKD-EPI 2020 equation that does not use a race coefficient. Blood Venous blood specimen / Unknown Venipuncture / Unknown 12/17/2024 5:58 PM EDT 12/17/2024 6:04 PM EDT us Boris Al MD LAB BLOOD ORDERABLES Final R esult [facility] [address] [place] [address] * XR Chest 1 View (12/17/2024 5:38 [...] the proximal stomach. Right internal jugular approach Winters-Valorie catheter with tip over the proximal right [...] in theproximal stomach. Right internal jugular approach Winters-Valorie catheter withtip over the proximal right pulmonary [...] LAB HEMATOLOGY METHOD 12/17/2024 5:22 PM EDT [facility] pCO2, Arterial 45 35 - 48 mmHg LAB HEMATOLOGY METHOD 12/17/2024 5:22 PM EDT [facility] pO2, Arterial 167 >80 mmHg LAB HEMATOLOGY METHOD 12/17/2024 5:22 PM EDT [facility] SO2, Measured, Arterial 100(H) 94 - 98 % LAB HEMATOLOGY METHOD 12/17/2024 5:22 PM EDT [facility] Base Excess, Arterial -2.8(L) -2.0 - 3.0 mmol/L LAB HEMATOLOGY METHOD 12/17/2024 5:22 PM EDT [facility] Bicarbonate, Calculated, Arterial 23 22 - 26 mmol/L LAB HEMATOLOGY METHOD 12/17/2024 5:22 PM EDT [facility] Hematocrit, Whole Blood 32.7(L) 34.0 - 45.0 % LAB HEMATOLOGY METHOD 12/17/2024 5:22 PM EDT [facility] Sodium, Whole Blood 148(H) 136 - 145 mmol/L LAB HEMATOLOGY METHOD 12/17/2024 5:22 PM EDT [facility] Potassium, Whole Blood 3.3(L) 3.6 - 4.9 mmol/L LAB HEMATOLOGY METHOD 12/17/2024 5:22 PM EDT [facility] Chloride, Whole Blood 117(H) 97 - 107 mmol/L LAB HEMATOLOGY METHOD 12/17/2024 5:22 PM EDT [facility] Glucose, Whole Blood 150(H) 74 - 99 mg/dL LAB HEMATOLOGY METHOD 12/17/2024 5:22 PM EDT [facility] Ionized Calcium, Whole Blood 4.2(L) 4.6 - 5.1 mg/dL LAB HEMATOLOGY METHOD 12/17/2024 5:22 PM EDT [facility] Lactate, Arterial, Whole Blood 1.9(H) 0.5 - 1.6 mmol/L LAB HEMATOLOGY METHOD 12/17/2024 5:22 PM EDT [facility] Blood Arterial blood specimen / Unknown Arterial Puncture / Unknown 12/17/2024 5:15 PM EDT 12/17/2024 5:20 PM EDT us Boris Al MD LAB BLOOD ORDERABLES Final R esult [facility] [address] [place] [address] * (ABNORMAL) POCT glucose meter (12/17/2024 4:52 PM EDT) Pathologist [facility] [place] POCT Glucose 192(H) 74 - 99 mg/dL 12/17/2024 4:53 PM EDT [facility] Comment:Accuracy of a glucos e result [...] Comment 12/17/2024 4:53 PM EDT [facility] [employer] [facility] Matt Mane 12/17/2024 4:53 PM EDT [facility] LAB Device ID [id number] 12/17/2024 4:53 PM EDT [facility] Specimen Type POC Arterial 12/17/2024 4:53 PM EDT [facility] Blood Arterial blood specimen / Unknown 12/17/2024 4:52 PM EDT 12/17/2024 4:53 PM EDT us Boris Al MD LAB POINT OF CARE TE ST DOCKED DEVICE UNSOLICITED RESULTS Final Result [facility] [address] [place] [address] * [place] [facility], E/M 30-74 MINUTES (12/17/2024 4:22 [...] Detected Not Detected 12/19/2024 4:46 AM EDT [facility] Swab (Axilla and Groin) Non-blood Collection / Unknown 12/17/2024 3:40 PM EDT 12/17/2024 3:53 PM EDT Narrative [facility] - 12/19/2024 4:46 AM EDT This PCR assay was developed and its performance characteristics determined by [facility] as appropriate for clinical purposes. This assay has not been cleared or approved by the FDA, but is performed in a CLIA regulated laboratory that is qualified to perform high-complexity testing. This PCR assay was developed and its performance characteristics determined by [facility] as appropriate for clinical purposes. This assay has not been cleared or approved by the FDA, but is performed in a CLIA regulated laboratory that is qualified to perform high-complexity testing. Boris Al MD LAB MICROBIOLOGY - GENERAL O RDERABLES Final Result Performing Organization Address [facility] [place] [address] * Multi Drug Resistance Test (12/17/2024 3:40 PM EDT) Culture No growth at day 1 12/18/2024 8:06 PM EDT [facility] Swab (Nares and Paige Rectal) Non-blood Collection / Unknown 12/17/2024 3:40 PM EDT 12/17/2024 3:53 PM EDT Narrative [facility] - 12/18/2024 8:06 PM EDT This test was developed and its performance characteristics determined by the [facility]. Although the media is FDA-approved, it is not FDA-approved for all specimen types submitted. The FDA has determined that such clearance or approval is not necessary. This test is used for surveillance purposes. It should not be regarded as investigational or for research. The [facility] is certified under the Clinical Laboratory Improvement Amendments of 1988 (CLIA-88) as qualified to perform high complexity clinical laboratory testing. Boris Al MD LAB MICROBIOLOGY - GENERAL O RDERABLES Final Result Performing Organization Address City/[facility] [place] [address] * APTT (12/17/2024 3:39 PM EDT) aPTT 28 25 - 35 sec LAB COAGULATION METHOD 12/17/2024 4:12 PM EDT [facility] Blood Venous blood specimen / Unknown Venipuncture / Unknown 12/17/2024 3:39 PM EDT 12/17/2024 3:54 PM EDT Boris Al MD LAB BLOOD ORDERABLES Final R esult Performing Organization Address City/[facility]/ZIP Co de Phone Number [facility] [address] [place] [address] * (ABNORMAL) Protime-INR (12/17/2024 3:39 PM EDT) Prothrombin Time 17.6(H) 12.0 - 14.3 sec LAB COAGULATION METHOD 12/17/2024 4:12 PM EDT [facility] INR 1.4(H) 0.9 - 1.1 LAB COAGULATION METHOD 12/17/2024 4:12 PM EDT [facility] Blood Venous blood specimen / Unknown Venipuncture / Unknown 12/17/2024 3:39 PM EDT 12/17/2024 3:54 PM EDT Narrative [facility] - 12/17/2024 4:12 PM EDT OPTIMAL INR RANGES FOR PATIENT ON ORAL ANTICOAGULANT THERAPY Prevention of venous thromboembolism INR 2.0 to 3.0 In patients with heart disease: Atrial fibrillation INR 2.0 to 3.0 Valvular heart disease INR 2.0 to 3.0 Tissue heart valves INR 2.0 to 3.0 Mechanical prosthetic valves INR 2.5 to 3.5 Prevention of recurrent ID INR 2.5 to 3.5 us Boris Al MD LAB BLOOD ORDERABLES Final R esult [facility] [address] [place] [address] * (ABNORMAL) Phosphorus (12/17/2024 3:39 PM EDT) Phosphorus, Plasma 0.9(LL) 2.5 - 4.5 mg/dL 12/17/2024 4:36 PM EDT [facility] Blood Venous blood specimen / Unknown Venipuncture / Unknown 12/17/2024 3:39 PM EDT 12/17/2024 3:54 PM EDT Boris Al MD LAB BLOOD ORDERABLES Final R esult Performing Organization Address City/[facility]/ZIP Co de Phone Number [facility] [address] [place] [address] * (ABNORMAL) Magnesium (12/17/2024 3:39 PM EDT) Magnesium, Plasma 6.3(HH) 1.9 - 2.4 mg/dL 12/17/2024 4:36 PM EDT [facility] Blood Venous blood specimen / Unknown Venipuncture / Unknown 12/17/2024 3:39 PM EDT 12/17/2024 3:54 PM EDT us Boris Al MD LAB BLOOD ORDERABLES Final R esult Performing Organization Address City/[facility]/ZIP Co de Phone Number [facility] [address] [place] [address] * (ABNORMAL) Basic metabolic panel (12/17/2024 3:39 PM EDT) Glucose, Plasma 71(L) 74 - 99 mg/dL 12/17/2024 4:36 PM EDT [facility] BUN, Plasma 15 8 - 23 mg/dL 12/17/2024 4:36 PM EDT [facility] Creatinine, Plasma 0.77 0.60 - 1.10 mg/dL 12/17/2024 4:36 PM EDT [facility] BUN/Creatinine Ratio 19 12/17/2024 4:36 PM EDT [facility] Sodium, Plasma 149(H) 136 - 145 mmol/L 12/17/2024 4:36 PM EDT [facility] Potassium, Plasma 3.7 3.6 - 4.9 mmol/L 12/17/2024 4:36 PM EDT [facility] Comment:Hemolyzed, result ma y be falsely increased. Chloride, Plasma 117(H) 97 - 107 mmol/L 12/17/2024 4:36 PM EDT [facility] CO2, Plasma 23 22 - 29 mmol/L 12/17/2024 4:36 PM EDT [facility] Anion Gap 9 6 - 16 mmol/L 12/17/2024 4:36 PM EDT [facility] Total Calcium, Plasma 7.6(L) 8.9 - 10.2 mg/dL 12/17/2024 4:36 PM EDT [facility] eGFRcr 88.4 mL/min/1.7 3m*2 12/17/2024 4:36 PM EDT [facility] Comment:Reported eGFRcr in m L/min/1.73m2 is based the CKD-EPI 2020 equation that does not use a race coefficient. Blood Venous blood specimen / Unknown Venipuncture / Unknown 12/17/2024 3:39 PM EDT 12/17/2024 3:54 PM EDT us Boris Al MD LAB BLOOD ORDERABLES Final R esult [facility] [address] [place] [address] * (ABNORMAL) CBC (12/17/2024 3:39 PM EDT) WBC Count 14.26(H) 3.70 - 10.30 10*3/uL LAB HEMATOLOGY METHOD 12/17/2024 4:10 PM EDT [facility] RBC Count 3.61(L) 3.90 - 5.20 10*6/uL LAB HEMATOLOGY METHOD 12/17/2024 4:10 PM EDT [facility] HGB 11.8 11.2 - 15.7 g/dL LAB HEMATOLOGY METHOD 12/17/2024 4:10 PM EDT [facility] HCT 33.1(L) 34.0 - 45.0 % LAB HEMATOLOGY METHOD 12/17/2024 4:10 PM EDT [facility] Platelet Count 116(L) 155 - 369 10*3/uL LAB HEMATOLOGY METHOD 12/17/2024 4:10 PM EDT [facility] MCV 92 79 - 98 fL LAB HEMATOLOGY METHOD 12/17/2024 4:10 PM EDT [facility] Comment:Results inconsistent with previous lab findings. MCH 32.7(H) 26.0 - 32.0 pg LAB HEMATOLOGY METHOD 12/17/2024 4:10 PM EDT [facility] MCHC 35.6(H) 30.7 - 35.5 g/dL LAB HEMATOLOGY METHOD 12/17/2024 4:10 PM EDT [facility] RDW 17.6(H) 11.5 - 14.5 % LAB HEMATOLOGY METHOD 12/17/2024 4:10 PM EDT [facility] MPV 11.1 8.8 - 12.5 fL LAB HEMATOLOGY METHOD 12/17/2024 4:10 PM EDT [facility] nRBC 0.0 <=0.0 per 100 WBCs LAB HEMATOLOGY METHOD 12/17/2024 4:10 PM EDT [facility] Blood Venous blood specimen / Unknown Venipuncture / Unknown 12/17/2024 3:39 PM EDT 12/17/2024 3:54 PM EDT us Boris Al MD LAB BLOOD ORDERABLES Final R esult [facility] [address] [place] [address] * (ABNORMAL) Blood gas, arterial (12/17/2024 3:39 PM EDT) pH, Arterial 7.32 7.31 - 7.42 LAB HEMATOLOGY METHOD 12/17/2024 3:51 PM EDT [facility] pCO2, Arterial 46 35 - 48 mmHg LAB HEMATOLOGY METHOD 12/17/2024 3:51 PM EDT [facility] pO2, Arterial 182 >80 mmHg LAB HEMATOLOGY METHOD 12/17/2024 3:51 PM EDT [facility] SO2, Measured, Arterial 100(H) 94 - 98 % LAB HEMATOLOGY METHOD 12/17/2024 3:51 PM EDT [facility] Base Excess, Arterial -2.3(L) -2.0 - 3.0 mmol/L LAB HEMATOLOGY METHOD 12/17/2024 3:51 PM EDT [facility] Bicarbonate, Calculated, Arterial 24 22 - 26 mmol/L LAB HEMATOLOGY METHOD 12/17/2024 3:51 PM EDT [facility] Hematocrit, Whole Blood 35.1 34.0 - 45.0 % LAB HEMATOLOGY METHOD 12/17/2024 3:51 PM EDT [facility] Sodium, Whole Blood 148(H) 136 - 145 mmol/L LAB HEMATOLOGY METHOD 12/17/2024 3:51 PM EDT [facility] Potassium, Whole Blood 3.4(L) 3.6 - 4.9 mmol/L LAB HEMATOLOGY METHOD 12/17/2024 3:51 PM EDT [facility] Chloride, Whole Blood 117(H) 97 - 107 mmol/L LAB HEMATOLOGY METHOD 12/17/2024 3:51 PM EDT [facility] Glucose, Whole Blood 71(L) 74 - 99 mg/dL LAB HEMATOLOGY METHOD 12/17/2024 3:51 PM EDT [facility] Ionized Calcium, Whole Blood 4.5(L) 4.6 - 5.1 mg/dL LAB HEMATOLOGY METHOD 12/17/2024 3:51 PM EDT [facility] Lactate, Arterial, Whole Blood 1.8(H) 0.5 - 1.6 mmol/L LAB HEMATOLOGY METHOD 12/17/2024 3:51 PM EDT [facility] Blood Arterial blood specimen / Unknown Arterial Puncture / Unknown 12/17/2024 3:39 PM EDT 12/17/2024 3:50 PM EDT us Boris Al MD LAB BLOOD ORDERABLES Final R esult [facility] [address] [place] [address] * ECG Adult - Upon Admissoin to CVICU (12/17/2024 3:32 PM EDT) EKG DIAGNOSIS CLASS Abnormal MUSE ECG Ventricular Rate 76 BPM MUSE ECG Atrial Rate 76 BPM MUSE ECG NJ Interval 206 ms MUSE ECG QRSD Interval 114 ms MUSE ECG QT Interval 444 ms MUSE ECG QTC Interval 499 ms MUSE ECG P Bruner 63 degrees MUSE ECG R Bruner 55 degrees MUSE ECG T Wave Bruner -50 degrees MUSE ECG Diagnosis Normal sinus rhythm MUSE ECG Diagnosis Possible Inferior infarct , age undetermined MUSE ECG Diagnosis Nonspecific intraventricular conduction delay MUSE ECG Diagnosis QTcB >= 480 msec MUSE ECG Diagnosis Abnormal ECG MUSE ECG Diagnosis No previous ECGs available MUSE ECG Diagnosis MUSE ECG Diagnosis Confirmed by Mo Evans ([id number]) on 12/17/2024 5:42:20 PM MUSE ECG 12/17/2024 3:32 PM EDT 12/17/2024 5:42 PM EDT us Boris Al MD ECG ORDERABLES Final Result Performing Organization Address City/[facility]/ZIP Co de Phone Number MUSE ECG * POCT ACT (12/17/2024 2:11 PM EDT) ACT+ (HIGH RANGE) 126 68 - 600 Seconds 12/17/2024 2:14 PM EDT [facility] [employer] Huy Kyle 12/17/2024 2:14 PM EDT [facility] ACT Device ID [id number] 12/17/2024 2:14 PM EDT [facility] Comment 12/17/2024 2:14 PM EDT [facility] Comment: ACT performed by staff [...] 2:11 PM EDT 12/17/2024 2:14 PM EDT us Boris Al MD LAB POINT OF CARE TE ST DOCKED DEVICE UNSOLICITED RESULTS Final Result Performing Organization Address City/[facility] Co de Phone Number [facility] [address] LAB [address] [place] [address] * Transfuse RBC (12/17/2024 2:00 PM EDT) us Swati Burton MD BLOOD TRANSFUSION ORDERABL ES Final Result * (ABNORMAL) POCT arterial blood gas gem (12/17/2024 1:52 PM EDT) pH, Arterial 7.34 7.31 - 7.42 12/17/2024 1:59 PM EDT [facility] pCO2, Arterial 48 35 - 48 mm Hg 12/17/2024 1:59 PM EDT [facility] pO2, Arterial 270 >80 mm Hg 12/17/2024 1:59 PM EDT [facility] SO2, Arterial 99(H) 94 - 98 % 12/17/2024 1:59 PM EDT [facility] Base Excess, Arterial 0.0 -2 - 3 mmol/L 12/17/2024 1:59 PM EDT [facility] HCO3, Arterial 25.9 22 - 26 mmol/L 12/17/2024 1:59 PM EDT [facility] Total Hemoglobin, Arterial, Whole Blood 7.3(L) 11.2 - 15.7 g/dL 12/17/2024 1:59 PM EDT [facility] Hematocrit, Arterial 22.0(L) 34.0 - 45.0 % 12/17/2024 1:59 PM EDT [facility] Sodium, Arterial 149(H) 136 - 145 mmol/L 12/17/2024 1:59 PM EDT [facility] Potassium, Arterial 3.1(L) 3.6 - 4.9 mmol/L 12/17/2024 1:59 PM EDT [facility] Chloride, Whole Blood 115(H) 97 - 107 mmol/L 12/17/2024 1:59 PM EDT [facility] Glucose, Arterial 226(H) 74 - 99 mg/dL 12/17/2024 1:59 PM EDT [facility] Ionized Calcium, Arterial 4.8 4.6 - 5.1 mg/dL 12/17/2024 1:59 PM EDT [facility] Lactate, Arterial 3.5(H) 0.5 - 1.6 mmol/L 12/17/2024 1:59 PM EDT [facility] Body Temperature 37.0 Celsius 12/17/2024 1:59 PM EDT [facility] pH, Temp Corrected, Arterial 7.34 7.31 - 7.42 12/17/2024 1:59 PM EDT [facility] pCO2, Temp Corrected, Arterial 48 35 - 48 mm Hg 12/17/2024 1:59 PM EDT [facility] pO2, Temp Corrected, Arterial 270 >80 mm Hg 12/17/2024 1:59 PM EDT [facility] [employer] Swati Burton 12/17/2024 1:59 PM EDT [facility] Blood, Arterial Whole blood specimen / Unknown 12/17/2024 1:52 PM EDT 12/17/2024 1:59 PM EDT Boris Al MD LAB POINT OF CARE TE ST DOCKED DEVICE UNSOLICITED RESULTS Final Result Performing Organization Address [facility] Co de Phone Number [facility] [address] [place] [address] * POCT ACT (12/17/2024 1:48 PM EDT) ACT+ (HIGH RANGE) 140 68 - 600 Seconds 12/17/2024 1:52 PM EDT [facility] [employer] Alex Clarke 12/17/2024 1:52 PM EDT [facility] ACT Device ID [id number] 12/17/2024 1:52 PM EDT [facility] Comment 12/17/2024 1:52 PM EDT [facility] Comment: ACT performed by staff [...] UNSOLICITED RESULTS Final Result Performing Organization Address [facility] Co de Phone Number [facility] [address] LAB [address] [place] [address] * (ABNORMAL) POCT arterial blood gas gem (12/17/2024 1:27 PM EDT) pH, Arterial 7.33 7.31 - 7.42 12/17/2024 1:29 PM EDT [facility] pCO2, Arterial 37 35 - 48 mm Hg 12/17/2024 1:29 PM EDT [facility] pO2, Arterial 304 >80 mm Hg 12/17/2024 1:29 PM EDT [facility] SO2, Arterial 98 94 - 98 % 12/17/2024 1:29 PM EDT [facility] Base Excess, Arterial -5.9(L) -2 - 3 mmol/L 12/17/2024 1:29 PM EDT [facility] HCO3, Arterial 19.5(L) 22 - 26 mmol/L 12/17/2024 1:29 PM T [facility] Total Hemoglobin, Arterial, Whole Blood 7.3(L) 11.2 - 15.7 g/dL 12/17/2024 1:29 PM T [facility] Hematocrit, Arterial 22.0(L) 34.0 - 45.0 % 12/17/2024 1:29 PM T [facility] Sodium, Arterial 141 136 - 145 mmol/L 12/17/2024 1:29 PM T [facility] Potassium, Arterial 3.8 3.6 - 4.9 mmol/L 12/17/2024 1:29 PM T [facility] Chloride, Whole Blood 114(H) 97 - 107 mmol/L 12/17/2024 1:29 PM [facility] Glucose, Arterial 296(H) 74 - 99 mg/dL 12/17/2024 1:29 PM T [facility] Ionized Calcium, Arterial 4.8 4.6 - 5.1 mg/dL 12/17/2024 1:29 PM T [facility] Lactate, Arterial 4.2(H) 0.5 - 1.6 mmol/L 12/17/2024 1:29 PM T [facility] Body Temperature 37.0 Celsius 12/17/2024 1:29 PM T [facility] pH, Temp Corrected, Arterial 7.33 7.31 - 7.42 12/17/2024 1:29 PM EDT [facility] pCO2, Temp Corrected, Arterial 37 35 - 48 mm Hg 12/17/2024 1:29 PM EDT [facility] pO2, Temp Corrected, Arterial 304 >80 mm Hg 12/17/2024 1:29 PM EDT [facility] [employer] Alex Clarke 12/17/2024 1:29 PM EDT [facility] Blood, Arterial Whole blood specimen / Unknown 12/17/2024 1:27 PM EDT 12/17/2024 1:29 PM EDT us Boris Al MD LAB POINT OF CARE TE ST DOCKED DEVICE UNSOLICITED RESULTS Final Result Performing Organization Address City/[facility] Co de Phone Number [facility] [address] [place] [address] * (ABNORMAL) POCT ACT (12/17/2024 1:23 PM EDT) ACT+ (HIGH RANGE) >600(H) 68 - 600 Seconds 12/17/2024 1:34 PM EDT [facility] [employer] Alex Clarke 12/17/2024 1:34 PM EDT [facility] ACT Device ID [id number] 12/17/2024 1:34 PM EDT [facility] Comment 12/17/2024 1:34 PM EDT [facility] Comment: ACT performed by staff [...] UNSOLICITED RESULTS Final Result Performing Organization Address [facility] Co de Phone Number [facility] [address] [place] [address] * (ABNORMAL) POCT arterial blood gas gem (12/17/2024 12:54 PM EDT) pH, Arterial 7.42 7.31 - 7.42 12/17/2024 12:55 PM EDT [facility] pCO2, Arterial 33(L) 35 - 48 mm Hg 12/17/2024 12:55 PM EDT [facility] pO2, Arterial 292 >80 mm Hg 12/17/2024 12:55 PM EDT [facility] SO2, Arterial 99(H) 94 - 98 % 12/17/2024 12:55 PM EDT [facility] Base Excess, Arterial -2.7(L) -2 - 3 mmol/L 12/17/2024 12:55 PM EDT [facility] HCO3, Arterial 21.4(L) 22 - 26 mmol/L 12/17/2024 12:55 PM EDT [facility] Total Hemoglobin, Arterial, Whole Blood 7.1(L) 11.2 - 15.7 g/dL 12/17/2024 12:55 PM T [facility] Hematocrit, Arterial 21.0(L) 34.0 - 45.0 % 12/17/2024 12:55 PM EDT [facility] Sodium, Arterial 144 136 - 145 mmol/L 12/17/2024 12:55 PM EDT [facility] Potassium, Arterial 4.1 3.6 - 4.9 mmol/L 12/17/2024 12:55 PM EDT [facility] Glucose, Arterial 250(H) 74 - 99 mg/dL 12/17/2024 12:55 PM T [facility] Ionized Calcium, Arterial 4.6 4.6 - 5.1 mg/dL 12/17/2024 12:55 PM EDT [facility] Lactate, Arterial 4.1(H) 0.5 - 1.6 mmol/L 12/17/2024 12:55 PM EDT [facility] Body Temperature 37.0 Celsius 12/17/2024 12:55 PM EDT [facility] pH, Temp Corrected, Arterial 7.42 7.31 - 7.42 12/17/2024 12:55 PM EDT [facility] pCO2, Temp Corrected, Arterial 33(L) 35 - 48 mm Hg 12/17/2024 12:55 PM EDT [facility] pO2, Temp Corrected, Arterial 292 >80 mm Hg 12/17/2024 12:55 PM EDT [facility] [employer] Alex Garza 12/17/2024 12:55 PM EDT [facility] Blood, Arterial Whole blood specimen / Unknown 12/17/2024 12:54 PM EDT 12/17/2024 12:55 PM EDT Boris Al MD LAB POINT OF CARE TE ST DOCKED DEVICE UNSOLICITED RESULTS Final Result Performing Organization Address [facility] de Phone Number [facility] [address] [place] [address] * (ABNORMAL) POCT ACT (12/17/2024 12:51 PM EDT) ACT+ (HIGH RANGE) >600(H) 68 - 600 Seconds 12/17/2024 1:01 PM EDT [facility] [employer] [facility] Alex Clarke 12/17/2024 1:01 PM EDT [facility] ACT Device ID [id number] 12/17/2024 1:01 PM EDT [facility] Comment 12/17/2024 1:01 PM EDT [facility] Comment: ACT performed by staff [...] 12:51 PM EDT 12/17/2024 1:01 PM EDT Boris Al MD LAB POINT OF CARE TE ST DOCKED DEVICE UNSOLICITED RESULTS Final Result Performing Organization Address [facility] Co de Phone Number [facility] [address] [place] [address] * (ABNORMAL) POCT arterial blood gas gem (12/17/2024 12:22 PM EDT) pH, Arterial 7.36 7.31 - 7.42 12/17/2024 12:23 PM EDT [facility] pCO2, Arterial 37 35 - 48 mm Hg 12/17/2024 12:23 PM EDT [facility] pO2, Arterial 349 >80 mm Hg 12/17/2024 12:23 PM EDT [facility] SO2, Arterial 99(H) 94 - 98 % 12/17/2024 12:23 PM EDT [facility] Base Excess, Arterial -4.1(L) -2 - 3 mmol/L 12/17/2024 12:23 PM EDT [facility] HCO3, Arterial 20.9(L) 22 - 26 mmol/L 12/17/2024 12:23 PM EDT [facility] Total Hemoglobin, Arterial, Whole Blood 7.6(L) 11.2 - 15.7 g/dL 12/17/2024 12:23 PM EDT [facility] Hematocrit, Arterial 23.0(L) 34.0 - 45.0 % 12/17/2024 12:23 PM EDT [facility] Sodium, Arterial 141 136 - 145 mmol/L 12/17/2024 12:23 PM EDT [facility] Potassium, Arterial 4.5 3.6 - 4.9 mmol/L 12/17/2024 12:23 PM T [facility] Glucose, Arterial 310(H) 74 - 99 mg/dL 12/17/2024 12:23 PM EDT [facility] Ionized Calcium, Arterial 4.6 4.6 - 5.1 mg/dL 12/17/2024 12:23 PM T [facility] Lactate, Arterial 2.7(H) 0.5 - 1.6 mmol/L 12/17/2024 12:23 PM EDT [facility] Body Temperature 37.0 Celsius 12/17/2024 12:23 PM T [facility] pH, Temp Corrected, Arterial 7.36 7.31 - 7.42 12/17/2024 12:23 PM EDT [facility] pCO2, Temp Corrected, Arterial 37 35 - 48 mm Hg 12/17/2024 12:23 PM EDT [facility] pO2, Temp Corrected, Arterial 349 >80 mm Hg 12/17/2024 12:23 PM EDT [facility] [employer] [facility] Alex Clarke 12/17/2024 12:23 PM EDT [facility] Blood, Arterial Whole blood specimen / Unknown 12/17/2024 12:22 PM EDT 12/17/2024 12:23 PM EDT us Boris Al MD LAB POINT OF CARE TE ST DOCKED DEVICE UNSOLICITED RESULTS Final Result Performing Organization Address [facility] Co de Phone Number [facility] [address] [place] [address] * POCT ACT (12/17/2024 12:18 PM EDT) ACT+ (HIGH RANGE) 532 68 - 600 Seconds 12/17/2024 12:27 PM EDT [facility] [employer] [facility] Alex Clarke 12/17/2024 12:27 PM EDT [facility] ACT Device ID [id number] 12/17/2024 12:27 PM EDT [facility] Comment 12/17/2024 12:27 PM EDT [facility] Comment: ACT performed by staff [...] 12:18 PM EDT 12/17/2024 12:27 PM EDT us Boris Al MD LAB POINT OF CARE TE ST DOCKED DEVICE UNSOLICITED RESULTS Final Result Performing Organization Address [facility] Co de Phone Number [facility] [address] [place] [address] LAB [address] [place] [address] * (ABNORMAL) POCT arterial blood gas gem (12/17/2024 11:59 AM EDT) pH, Arterial 7.36 7.31 - 7.42 12/17/2024 12:00 PM EDT [facility] pCO2, Arterial 43 35 - 48 mm Hg 12/17/2024 12:00 PM EDT [facility] pO2, Arterial 251 >80 mm Hg 12/17/2024 12:00 PM EDT [facility] SO2, Arterial 99(H) 94 - 98 % 12/17/2024 12:00 PM EDT [facility] Base Excess, Arterial -1.1 -2 - 3 mmol/L 12/17/2024 12:00 PM EDT [facility] HCO3, Arterial 24.3 22 - 26 mmol/L 12/17/2024 12:00 PM EDT [facility] Total Hemoglobin, Arterial, Whole Blood 8.1(L) 11.2 - 15.7 g/dL 12/17/2024 12:00 PM EDT [facility] Hematocrit, Arterial 24.0(L) 34.0 - 45.0 % 12/17/2024 12:00 PM EDT [facility] Sodium, Arterial 142 136 - 145 mmol/L 12/17/2024 12:00 PM EDT [facility] Potassium, Arterial 4.1 3.6 - 4.9 mmol/L 12/17/2024 12:00 PM EDT [facility] Chloride, Whole Blood 112(H) 97 - 107 mmol/L 12/17/2024 12:00 PM T [facility] Glucose, Arterial 305(H) 74 - 99 mg/dL 12/17/2024 12:00 PM T [facility] Ionized Calcium, Arterial 4.5(L) 4.6 - 5.1 mg/dL 12/17/2024 12:00 PM EDT [facility] Lactate, Arterial 1.6 0.5 - 1.6 mmol/L 12/17/2024 12:00 PM EDT [facility] Body Temperature 37.0 Celsius 12/17/2024 12:00 PM T [facility] pH, Temp Corrected, Arterial 7.36 7.31 - 7.42 12/17/2024 12:00 PM EDT [facility] pCO2, Temp Corrected, Arterial 43 35 - 48 mm Hg 12/17/2024 12:00 PM T [facility] pO2, Temp Corrected, Arterial 251 >80 mm Hg 12/17/2024 12:00 PM EDT [facility] [employer] [facility] Alex Clarke 12/17/2024 12:00 PM EDT [facility] Blood, Arterial Whole blood specimen / Unknown 12/17/2024 11:59 AM EDT 12/17/2024 12:00 PM EDT Boris Al MD LAB POINT OF CARE TE ST DOCKED DEVICE UNSOLICITED RESULTS Final Result Performing Organization Address [facility] Co de Phone Number [facility] [address] [place] [address] * (ABNORMAL) POCT ACT (12/17/2024 11:55 AM EDT) ACT+ (HIGH RANGE) >600(H) 68 - 600 Seconds 12/17/2024 12:06 PM EDT [facility] [employer] [facility] Alex Clarke 12/17/2024 12:06 PM EDT [facility] ACT Device ID [id number] 12/17/2024 12:06 PM EDT [facility] Comment 12/17/2024 12:06 PM EDT [facility] Comment: ACT performed by staff [...] UNSOLICITED RESULTS Final Result Performing Organization Address [facility] de Phone Number [facility]ARE [facility] [address] LAB [address] [place] [address] * (ABNORMAL) POCT arterial blood gas gem (12/17/2024 11:33 AM EDT) pH, Arterial 7.35 7.31 - 7.42 12/17/2024 11:34 AM EDT [facility] pCO2, Arterial 39 35 - 48 mm Hg 12/17/2024 11:34 AM EDT [facility] pO2, Arterial 339 >80 mm Hg 12/17/2024 11:34 AM EDT [facility] SO2, Arterial 99(H) 94 - 98 % 12/17/2024 11:34 AM EDT [facility] Base Excess, Arterial -3.8(L) -2 - 3 mmol/L 12/17/2024 11:34 AM EDT [facility] HCO3, Arterial 21.5(L) 22 - 26 mmol/L 12/17/2024 11:34 AM EDT [facility] Total Hemoglobin, Arterial, Whole Blood 6.9(L) 11.2 - 15.7 g/dL 12/17/2024 11:34 AM EDT [facility] Hematocrit, Arterial 21.0(L) 34.0 - 45.0 % 12/17/2024 11:34 AM EDT [facility] Sodium, Arterial 140 136 - 145 mmol/L 12/17/2024 11:34 AM EDT [facility] Potassium, Arterial 4.3 3.6 - 4.9 mmol/L 12/17/2024 11:34 AM EDT [facility] Chloride, Whole Blood 112(H) 97 - 107 mmol/L 12/17/2024 11:34 AM EDT [facility] Glucose, Arterial 316(H) 74 - 99 mg/dL 12/17/2024 11:34 AM EDT [facility] Ionized Calcium, Arterial 4.5(L) 4.6 - 5.1 mg/dL 12/17/2024 11:34 AM EDT [facility] Lactate, Arterial 1.3 0.5 - 1.6 mmol/L 12/17/2024 11:34 AM EDT [facility] Body Temperature 37.0 Celsius 12/17/2024 11:34 AM EDT [facility] pH, Temp Corrected, Arterial 7.35 7.31 - 7.42 12/17/2024 11:34 AM EDT [facility] pCO2, Temp Corrected, Arterial 39 35 - 48 mm Hg 12/17/2024 11:34 AM EDT [facility] pO2, Temp Corrected, Arterial 339 >80 mm Hg 12/17/2024 11:34 AM EDT [facility] [employer] [facility] Alex Clarke 12/17/2024 11:34 AM EDT [facility] Blood, Arterial Whole blood specimen / Unknown 12/17/2024 11:33 AM EDT 12/17/2024 11:34 AM EDT us Boris Al MD LAB POINT OF CARE TE ST DOCKED DEVICE UNSOLICITED RESULTS Final Result [facility] [address] [place] [id number] * (ABNORMAL) POCT ACT (12/17/2024 11:28 AM EDT) ACT+ (HIGH RANGE) >600(H) 68 - 600 Seconds 12/17/2024 11:44 AM EDT [facility] [employer] [facility] Alex Clarke 12/17/2024 11:44 AM EDT [facility] ACT Device ID [id number] 12/17/2024 11:44 AM EDT [facility] Comment 12/17/2024 11:44 AM EDT [facility] Comment: ACT performed by staff [...] UNSOLICITED RESULTS Final Result [facility] [address] [facility] [address] [place] [address] * (ABNORMAL) POCT arterial blood gas gem (12/17/2024 11:04 AM EDT) pH, Arterial 7.37 7.31 - 7.42 12/17/2024 11:05 AM EDT [facility] pCO2, Arterial 34(L) 35 - 48 mm Hg 12/17/2024 11:05 AM EDT [facility] pO2, Arterial 513 >80 mm Hg 12/17/2024 11:05 AM EDT [facility] SO2, Arterial 98 94 - 98 % 12/17/2024 11:05 AM EDT [facility] Base Excess, Arterial -5.1(L) -2 - 3 mmol/L 12/17/2024 11:05 AM EDT [facility] HCO3, Arterial 19.7(L) 22 - 26 mmol/L 12/17/2024 11:05 AM EDT [facility] Total Hemoglobin, Arterial, Whole Blood 6.3(LL) 11.2 - 15.7 g/dL 12/17/2024 11:05 AM EDT [facility] Hematocrit, Arterial 19.0(LL) 34.0 - 45.0 % 12/17/2024 11:05 AM EDT [facility] Sodium, Arterial 137 136 - 145 mmol/L 12/17/2024 11:05 AM EDT [facility] Potassium, Arterial 5.5(H) 3.6 - 4.9 mmol/L 12/17/2024 11:05 AM EDT [facility] Chloride, Whole Blood 113(H) 97 - 107 mmol/L 12/17/2024 11:05 AM EDT [facility] Glucose, Arterial 318(H) 74 - 99 mg/dL 12/17/2024 11:05 AM EDT [facility] Ionized Calcium, Arterial 4.2(L) 4.6 - 5.1 mg/dL 12/17/2024 11:05 AM EDT [facility] Lactate, Arterial 1.3 0.5 - 1.6 mmol/L 12/17/2024 11:05 AM EDT [facility] Body Temperature 37.0 Celsius 12/17/2024 11:05 AM EDT [facility] pH, Temp Corrected, Arterial 7.37 7.31 - 7.42 12/17/2024 11:05 AM EDT [facility] pCO2, Temp Corrected, Arterial 34(L) 35 - 48 mm Hg 12/17/2024 11:05 AM EDT [facility] pO2, Temp Corrected, Arterial 513 >80 mm Hg 12/17/2024 11:05 AM EDT [facility] [employer] Alxe Clarke 12/17/2024 11:05 AM EDT [facility] Blood, Arterial Whole blood specimen / Unknown 12/17/2024 11:04 AM EDT 12/17/2024 11:05 AM EDT us Boris Al MD LAB POINT OF CARE TE ST DOCKED DEVICE UNSOLICITED RESULTS Final Result Performing Organization Address City/State/[facility] de Phone Number [facility] [address] [place] [id number] * Transfuse RBC (12/17/2024 10:37 AM EDT) us Swati Burton MD BLOOD TRANSFUSION ORDERABL ES Final Result * (ABNORMAL) POCT arterial blood gas gem (12/17/2024 10:33 AM EDT) pH, Arterial 7.35 7.31 - 7.42 12/17/2024 10:34 AM EDT [facility] pCO2, Arterial 35 35 - 48 mm Hg 12/17/2024 10:34 AM EDT [facility] pO2, Arterial 248 >80 mm Hg 12/17/2024 10:34 [facility] SO2, Arterial 100(H) 94 - 98 % 12/17/2024 10:34 AM [facility] Base Excess, Arterial -5.7(L) -2 - 3 mmol/L 12/17/2024 10:34 AM [facility] HCO3, Arterial 19.3(L) 22 - 26 mmol/L 12/17/2024 10:34 AM [facility] Total Hemoglobin, Arterial, Whole Blood 9.3(L) 11.2 - 15.7 g/dL 12/17/2024 10:34 AM [facility] Hematocrit, Arterial 28.0(L) 34.0 - 45.0 % 12/17/2024 10:34 AM [facility] Sodium, Arterial 142 136 - 145 mmol/L 12/17/2024 10:34 AM [facility] Potassium, Arterial 4.3 3.6 - 4.9 mmol/L 12/17/2024 10:34 AM [facility] Chloride, Whole Blood 115(H) 97 - 107 mmol/L 12/17/2024 10:34 AM [facility] Glucose, Arterial 143(H) 74 - 99 mg/dL 12/17/2024 10:34 AM [facility] Ionized Calcium, Arterial 4.7 4.6 - 5.1 mg/dL 12/17/2024 10:34 AM [facility] Lactate, Arterial 0.5 0.5 - 1.6 mmol/L 12/17/2024 10:34 AM EDT [facility] Body Temperature 37.0 Celsius 12/17/2024 10:34 AM EDT [facility] pH, Temp Corrected, Arterial 7.35 7.31 - 7.42 12/17/2024 10:34 AM EDT [facility] pCO2, Temp Corrected, Arterial 35 35 - 48 mm Hg 12/17/2024 10:34 AM EDT [facility] pO2, Temp Corrected, Arterial 248 >80 mm Hg 12/17/2024 10:34 AM EDT [facility] [employer] [facility] Alex Clarke 12/17/2024 10:34 AM EDT [facility] Blood, Arterial Whole blood specimen / Unknown 12/17/2024 10:33 AM EDT 12/17/2024 10:34 AM EDT us Boris Al MD LAB POINT OF CARE TE ST DOCKED DEVICE UNSOLICITED RESULTS Final Result Performing Organization Address City/[facility]/ZIP Co de Phone Number [facility] [address] [place] [address] * (ABNORMAL) POCT ACT (12/17/2024 10:30 AM EDT) [facility] Signature ACT+ (HIGH RANGE) >600(H) 68 - 600 Seconds 12/17/2024 10:45 AM EDT [facility]ALTH[facility] [employer] [facility] Alex Clarke 12/17/2024 10:45 AM EDT HEALTHCARE LAB ACT Device ID [id number] 12/17/2024 10:45 AM EDT HEALTHCARE LAB Comment 12/17/2024 10:45 AM EDT [facility] Comment: ACT performed by staff [...] 10:30 AM EDT 12/17/2024 10:45 AM EDT Boris Al MD LAB POINT OF CARE TE ST DOCKED DEVICE UNSOLICITED RESULTS Final Result Performing Organization Address City/[facility]/ZIP Co de Phone Number HEALTHCARE LAB [address] LAB [address] [place] [address] * (ABNORMAL) POCT arterial blood gas gem (12/17/2024 7:57 AM EDT) pH, Arterial 7.28(L) 7.31 - 7.42 12/17/2024 8:31 AM [facility] pCO2, Arterial 48 35 - 48 mm Hg 12/17/2024 8:31 AM EDT [facility] pO2, Arterial 198 >80 mm Hg 12/17/2024 8:31 AM EDT [facility] SO2, Arterial 99(H) 94 - 98 % 12/17/2024 8:31 AM EDT [facility] Base Excess, Arterial -4.2(L) -2 - 3 mmol/L 12/17/2024 8:31 AM [facility] HCO3, Arterial 22.6 22 - 26 mmol/L 12/17/2024 8:31 AM EDT [facility] Total Hemoglobin, Arterial, Whole Blood 10.2(L) 11.2 - 15.7 g/dL 12/17/2024 8:31 AM [facility] Hematocrit, Arterial 31.0(L) 34.0 - 45.0 % 12/17/2024 8:31 AM [facility] Sodium, Arterial 144 136 - 145 mmol/L 12/17/2024 8:31 AM [facility] Potassium, Arterial 4.1 3.6 - 4.9 mmol/L 12/17/2024 8:31 AM [facility] Chloride, Whole Blood 113(H) 97 - 107 mmol/L 12/17/2024 8:31 AM [facility] Glucose, Arterial 107(H) 74 - 99 mg/dL 12/17/2024 8:31 AM [facility] Ionized Calcium, Arterial 5.1 4.6 - 5.1 mg/dL 12/17/2024 8:31 AM EDT [facility] Lactate, Arterial 0.7 0.5 - 1.6 mmol/L 12/17/2024 8:31 AM [facility] Body Temperature 37.0 Celsius 12/17/2024 8:31 AM EDT [facility] pH, Temp Corrected, Arterial 7.28(L) 7.31 - 7.42 12/17/2024 8:31 AM EDT [facility]ALTHCARE LAB pCO2, Temp Corrected, Arterial 48 35 - 48 mm Hg 12/17/2024 8:31 AM EDT [facility] pO2, Temp Corrected, Arterial 198 >80 mm Hg 12/17/2024 8:31 AM EDT [facility]ALTH[facility] [employer] [facility] Swati Burton 12/17/2024 8:31 AM EDT [facility]ALTH[facility] LAB Blood, Arterial Whole blood specimen / Unknown 12/17/2024 7:57 AM EDT 12/17/2024 8:31 AM EDT us Boris Al MD LAB POINT OF CARE TE ST DOCKED DEVICE UNSOLICITED RESULTS Final Result Performing Organization Address City/[facility]/ZIP Co de Phone Number HEALTHCARE LAB [address] [place] [address] * POCT ACT (12/17/2024 7:52 AM EDT) ACT+ (HIGH RANGE) 109 68 - 600 Seconds 12/17/2024 7:55 AM EDT [facility]ALTH[facility] [employer] Macario Wilcox 12/17/2024 7:55 AM EDT HEALTH[facility]ARE LAB ACT Device ID [id number] 12/17/2024 7:55 AM EDT HEALTHCARE LAB Comment 12/17/2024 7:55 AM EDT [facility] Comment: ACT performed by staff [...] 7:52 AM EDT 12/17/2024 7:55 AM EDT Boris Al MD LAB POINT OF CARE TE ST DOCKED DEVICE UNSOLICITED RESULTS Final Result Performing Organization Address [facility] Co de Phone Number HEALTHCARE LAB [address] LAB [address] [place] [address] * Prepare Leukocyte Reduced RBC: 2 Units (12/17/2024 7:50 AM EDT) Product Code [id number] CH BLOO D BANK Dispense Status Transfused BLOOD BANK Blood Expiration Date [id number] BLOOD BANK Unit Number [id number] CH B LOOD BANK Product Blood Type 5100 CH BLOOD BANK Blood Type O+ CH BLOOD BANK Crossmatch Compatible CH BLOOD BANK Product Code [id number] BLOO D BANK Dispense Status Transfused CH BLOOD BANK Blood Expiration Date [id number] BLOOD BANK Unit Number [id number] CH B LOOD BANK Product Blood Type 5100 CH BLOOD BANK Blood Type O+ CH BLOOD BANK Crossmatch Compatible CH BLOOD BANK Other us Swati Burton MD BLOOD BANK PRODUCT ORDERAB LES Final Result Performing Organization Address [facility]/ZIP Co de Phone Number BLOOD BANK [address] * APTT (12/17/2024 7:23 AM EDT) aPTT 26 25 - 35 sec LAB COAGULATION METHOD 12/17/2024 7:49 AM EDT [facility] Blood Venous blood specimen / Unknown Venipuncture / Unknown 12/17/2024 7:23 AM EDT 12/17/2024 7:30 AM EDT Mo SAHA LAB BLOOD ORDERABLES Final Resu lt [facility] [address] [place] [address] * Protime-INR (12/17/2024 7:23 AM EDT) Prothrombin Time 12.6 12.0 - 14.3 sec LAB COAGULATION METHOD 12/17/2024 7:49 AM EDT [facility] INR 0.9 0.9 - 1.1 LAB COAGULATION METHOD 12/17/2024 7:49 AM EDT [facility] Blood Venous blood specimen / Unknown Venipuncture / Unknown 12/17/2024 7:23 AM EDT 12/17/2024 7:30 AM EDT Narrative [facility] - 12/17/2024 7:49 AM EDT OPTIMAL INR RANGES FOR PATIENT ON ORAL ANTICOAGULANT THERAPY Prevention of venous thromboembolism INR 2.0 to 3.0 In patients with heart disease: Atrial fibrillation INR 2.0 to 3.0 Valvular heart disease INR 2.0 to 3.0 Tissue heart valves INR 2.0 to 3.0 Mechanical prosthetic valves INR 2.5 to 3.5 Prevention of recurrent ID INR 2.5 to 3.5 us Mo SAHA LAB BLOOD ORDERABLES Final Resu lt [facility] [address] [place] [address] * (ABNORMAL) Comprehensive metabolic panel (12/17/2024 7:23 AM EDT) Glucose, Plasma 96 74 - 99 mg/dL 12/17/2024 8:19 AM EDT [facility] BUN, Plasma 15 8 - 23 mg/dL 12/17/2024 8:19 AM EDT [facility] Creatinine, Plasma 0.76 0.60 - 1.10 mg/dL 12/17/2024 8:19 AM EDT [facility] BUN/Creatinine Ratio 20 12/17/2024 8:19 AM EDT [facility] Sodium, Plasma 141 136 - 145 mmol/L 12/17/2024 8:19 AM EDT [facility] Potassium, Plasma 4.1 3.6 - 4.9 mmol/L 12/17/2024 8:19 AM EDT [facility] Chloride, Plasma 109(H) 97 - 107 mmol/L 12/17/2024 8:19 AM EDT [facility] CO2, Plasma 21(L) 22 - 29 mmol/L 12/17/2024 8:19 AM EDT [facility] Anion Gap 11 6 - 16 mmol/L 12/17/2024 8:19 AM EDT [facility] Total Calcium, Plasma 9.6 8.9 - 10.2 mg/dL 12/17/2024 8:19 AM EDT [facility] Total Protein 7.7 6.3 - 7.9 g/dL 12/17/2024 8:19 AM EDT [facility] Albumin, Plasma 4.7 3.5 - 5.2 g/dL 12/17/2024 8:19 AM EDT [facility] AST, Plasma 25 10 - 35 U/L 12/17/2024 8:19 AM EDT [facility] Comment:Hemolyzed, result ma y be falsely increased. ALT, Plasma 26 10 - 35 U/L 12/17/2024 8:19 AM EDT [facility] Alkaline Phosphatase, Plasma 117 46 - 142 U/L 12/17/2024 8:19 AM EDT [facility] Total Bilirubin, Plasma <0.2(L) 0.2 - 1.1 mg/dL 12/17/2024 8:19 AM EDT [facility] eGFRcr 89.8 mL/min/1.7 3m*2 12/17/2024 8:19 AM EDT [facility] Comment:Reported eGFRcr in m L/min/1.73m2 is based the CKD-EPI 2020 equation that does not use a race coefficient. Blood Venous blood specimen / Unknown Venipuncture / Unknown 12/17/2024 7:23 AM EDT 12/17/2024 7:30 AM EDT us Mo SAHA LAB BLOOD ORDERABLES Final Resu lt [facility] [address] [place] [address] * (ABNORMAL) CBC (12/17/2024 7:23 AM EDT) WBC Count 6.43 3.70 - 10.30 10*3/uL LAB HEMATOLOGY METHOD 12/17/2024 7:49 AM EDT [facility] RBC Count 3.68(L) 3.90 - 5.20 10*6/uL LAB HEMATOLOGY METHOD 12/17/2024 7:49 AM EDT [facility] HGB 12.0 11.2 - 15.7 g/dL LAB HEMATOLOGY METHOD 12/17/2024 7:49 AM EDT [facility] HCT 37.0 34.0 - 45.0 % LAB HEMATOLOGY METHOD 12/17/2024 7:49 AM EDT [facility] Platelet Count 230 155 - 369 10*3/uL LAB HEMATOLOGY METHOD 12/17/2024 7:49 AM EDT [facility] MCV 101(H) 79 - 98 fL LAB HEMATOLOGY METHOD 12/17/2024 7:49 AM EDT [facility] MCH 32.6(H) 26.0 - 32.0 pg LAB HEMATOLOGY METHOD 12/17/2024 7:49 AM EDT [facility] MCHC 32.4 30.7 - 35.5 g/dL LAB HEMATOLOGY METHOD 12/17/2024 7:49 AM EDT [facility] RDW 13.5 11.5 - 14.5 % LAB HEMATOLOGY METHOD 12/17/2024 7:49 AM EDT [facility] MPV 11.2 8.8 - 12.5 fL LAB HEMATOLOGY METHOD 12/17/2024 7:49 AM EDT [facility] nRBC 0.0 <=0.0 per 100 WBCs LAB HEMATOLOGY METHOD 12/17/2024 7:49 AM EDT [facility] Blood Venous blood specimen / Unknown Venipuncture / Unknown 12/17/2024 7:23 AM EDT 12/17/2024 7:30 AM EDT us Mo SAHA LAB BLOOD ORDERABLES Final Resu lt [facility] [address] [place] [address] * Type and screen (12/17/2024 7:23 AM EDT) ABO/Rh O Positive 12/17/2024 5:51 AM EDT [facility] B[facility]OD BANK Antibody Screen Negative 12/17/2024 5:51 AM EDT BLOOD BANK Specimen Expiration 12/20/2024 23:59 12/17/2024 5:51 AM EDT BLOOD BANK Blood Venous blood specimen / Unknown Venipuncture / Unknown 12/17/2024 7:23 AM EDT 12/17/2024 7:28 AM EDT Swati Burton MD LAB BLOOD BANK TEST ORDERA BLES Final Result Performing Organization Address City/[facility] Co de Phone Number BLOOD BANK [address] [place] [address], * (ABNORMAL) POCT glucose meter (12/17/2024 6:08 [...] Comment 12/17/2024 6:10 AM EDT [facility]ALTHCARE [facility] [employer] [facility] Marybel Durán 12/18/19 6:10 AM EDT Predect LAB Device ID [id number] 12/17/2024 6:10 AM EDT [facility] Specimen Type POC Capillary 12/17/2024 6:10 AM EDT HEALTHCARE LAB Blood Capillary blood specimen / Unknown 12/17/2024 6:08 AM EDT 12/17/2024 6:10 AM EDT us Boris Al MD LAB POINT OF CARE TE ST DOCKED DEVICE UNSOLICITED RESULTS Final Result Performing Organization Address City/[facility] Co de Phone Number [facility] [address] [place] [address] documented in this encounter Visit Diagnoses Diagnosis CAD in [place] artery Acute blood loss anemia Acute posthemorrhagic anemia Cardiac volume overload S/P CABG x 3 Postsurgical aortocoronary bypass status CAD in [place] artery 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 (CMS/HCC) documented in this encounter Admitting Diagnoses Diagnosis CAD (coronary artery disease) Coronary atherosclerosis of unspecified type of vessel, [place] or graft CAD in [place] artery S/P CABG x 3 Postsurgical aortocoronary bypass status documented in this encounter Administered Medications Inactive Administered Medications - up to 3 most recent administrations Medication Order MAR Action Action Date Dose Rate Site acetaminophen (Tylenol) tablet 650 mg 650 mg, [...] Given 12/18/2024 8:11 PM EDT 80 mg docusate sodium (Colace) capsule 100 mg 100 [...] EDT 40 mg Le ft Lower Abdomen heparin flush 10 UNIT/ML injection 50 Units 50 Units, Intracatheter, As needed, Starting on Tue12/19/24 at 1804, Until Tue12/21/24 at 1401, Routine, line care, As needed for line care, Maintain Implantable Vascular Port IV patency lidocaine (Lidoderm) 5 % patch 1 patch 1 patch, Apply externally, Every 24 hours, First dose on Tue12/17/24 at 1645, Until Discontinued, Administer over 12 Hours, Routine Medication Applied 12/20/2024 4:30 PM EDT 1 patch Chest Medication Applied 12/17/2024 6:10 PM EDT 1 patch Chest methocarbamol (Robaxin) tablet 500 mg 500 mg, Oral, 4 times daily, First dose on Tue12/17/24 at 1800, Until Discontinued, Routine Given 12/21/2024 8:20 AM EDT 500 mg Given 12/20/2024 8:51 PM EDT 500 mg Given 12/20/2024 5:26 PM EDT 500 mg metoclopramide (Reglan) tablet 10 mg 10 mg, Oral, Every 6 hours PRN, Starting on Tue12/20/24 at 0857, Until Tue12/21/24 at 1401, Routine, nausea, vomiting, use if ondansetron is ineffective after 30 minutes Given 12/21/2024 8:14 AM EDT 10 mg metoprolol tartrate (Lopressor) tablet 25 mg 25 mg, Oral, 2 times daily, First dose (after last modification) on Tue12/18/24 at 2100, Until Discontinued, Routine Given 12/21/2024 8:20 AM EDT 25 mg Given 12/20/2024 8:52 PM EDT 25 mg Given 12/20/2024 9:05 AM EDT 25 mg NIFEdipine XL (Procardia XL) 24 hr tablet 30 mg 30 mg, Oral, Daily, First dose on Tue12/18/24 at 1245, Until Discontinued, STAT Given 12/21/2024 8:20 AM EDT 30 mg Given 12/20/2024 9:05 AM EDT 30 mg Given 12/19/2024 8:39 AM EDT 30 mg NITROGLYCERIN 100 MCG/ML INJECTION (LEG VEIN) injection As needed, Starting on Tue12/17/24 at 0808, Intraprocedure Given 12/17/2024 8:08 AM EDT 44 mL ondansetron (Zofran) injection 4 mg 4 mg, [...] Given 12/21/2024 1:41 AM EDT 5 mg papaverine in NS injection Continuous PRN, Starting on Tue12/17/24 at 0809, Until Tue12/17/24 at 1520, Routine, Intraprocedure New Bag 12/17/2024 8:09 AM EDT 30 mg polyethylene glycol (Miralax) packet 17 g 17 g, Oral, Daily, First dose on Tue12/18/24 at 0900, Until Discontinued, Routine, Recovery(Phase II-Outpatient)/On Unit(Inpatient) Given 12/18/2024 8:56 AM EDT 17 g pregabalin (Lyrica) capsule 50 mg 50 mg, Oral, 2 times daily, First dose on Tue12/18/24 at 0945, Until Discontinued, Routine Given 12/21/2024 9:19 AM EDT 50 mg Given 12/20/2024 8:53 PM EDT 50 mg Given 12/20/2024 9:06 AM EDT 50 mg QUEtiapine (SEROquel) tablet 200 mg 200 mg, Oral, Nightly, First dose (after last modification) on Sharri 12/20/24 at 2100, Until Discontinued, Routine Given 12/20/2024 [...] Given 12/17/2024 8:39 PM EDT 17.2 mg sodium chloride 0.9 % flush 10 [...] and if any blood seen in tubing. thrombin (recombinant) (Recothrom) topical solution As needed, Starting on Tue12/17/24 at 0810, Until Tue12/17/24 at 1520, Routine Given 12/17/2024 8:10 AM EDT 10,000 Units Tiotropium [place] Monohydrate (Spiriva Respimat) 2.5 MCG/ACT inhaler 2 puff 2 puff, Inhalation, Daily, First dose on Tue12/19/24 at 0900, Until Discontinued, Routine Given 12/21/2024 8:12 AM EDT 2 puffs Given 12/20/2024 9:45 AM EDT 2 puffs vancomycin (Vancocin) vial for injection As needed, Starting on Tue12/17/24 at 0810, Until Tue12/17/24 at 1520, Routine, Intraprocedure Given 12/17/2024 8:10 AM EDT 1 g zonisamide (Zonegran) capsule 300 mg 300 mg, [...] Reason: Patient/family refused)0905 (Given - Provider: April Soliman)1726 (Given - Provider: April Soliman) aspirin chewable tablet 81 mg 81 mg, Oral, Daily, First dose on Tue12/18/24 at 0900, Until Discontinued, Routine, Recovery(Phase II-Outpatient)/On Unit(Inpatient) 0836 (Given - Provider: Bouchra Rees RN) 0906 (Given - Provider: April Soliman) 0820 (Given - Provider: Kael Siddiqi RN) atorvastatin (Lipitor) tablet 80 mg 80 mg, Oral, Nightly, First dose on Tue12/17/24 at 2100, Until Discontinued, Routine, Recovery(Phase II-Outpatient)/On Unit(Inpatient) 2049 (Given - Provider: Yovana Asif RN) 2099 (Given - Provider: Yovana Asif RN) docusate sodium (Colace) capsule 100 mg 100 mg, Oral, 2 times daily, First dose on Tue12/17/24 at 2100, Until Discontinued, Routine, Recovery(Phase II-Outpatient)/On Unit(Inpatient) 0838 (Given - Provider: Bouchra Rees RN)2050 (Given - Provider: Yovana Asif, GIOVANNY) 09 (Not Given - Provider: April Soliman [...] Soliman) 0338 (Medication Removed - Provider: Yovana Asif RN) magnesium sulfate IVPB 2 g (COMPLETED) 2 g, Intravenous, Once, 1 dose, On Tue12/20/24 at 0700, Routine 0616 (New Bag - Provider: Yovana Asif RN) magnesium sulfate IVPB 2 g (COMPLETED) 2 g, Intravenous, Once, 1 dose, On Tue12/21/24 at 0615, Routine 0533 (New Bag - Provider: Yovana Asif, GIOVANNY) methocarbamol (Robaxin) tablet 500 mg 500 mg, Oral, 4 times daily, First dose on Tue12/17/24 at 1800, Until Discontinued, Routine 0836 (Given - Provider: Bouchra Rees RN)1322 (Given - Provider: Bouchra Rees RN)1712 (Given - Provider: Ritika Augustin RN)2051 (Given - Provider: Yovana Asif RN) 09 (Given - Provider: April Soliman)1340 (Given - Provider: Lena Nicolas, GIOVANNY)1726 (Given - Provider: April Soliman)2050 (Given - Provider: Yovana Asif RN) 0820 (Given - Provider: Kael Siddiqi, GIOVANNY)1400 (Canceled Entry - Provider: Automatic Discharge Provider - Comment: Automatically canceled at discontinue of medication order) metoprolol tartrate (Lopressor) tablet 25 mg 25 mg, Oral, 2 times daily, First dose (after last modification) on Tue12/18/24 at 2100, Until Discontinued, Routine 0837 (Given - Provider: Bouchra Rees RN)2049 (Given - Provider: Yovana Asif RN) 09 (Given - Provider: April Soliman)2051 (Given - Provider: Yovana Asif RN) 0820 (Given - Provider: Kael Siddiqi, GIOVANNY) mupirocin (Bactroban) 2 % ointment 1 Application (CANCELED) Each Nostril, 2 times daily, 8 doses, First dose on Tue12/17/24 at 2100, Last dose on Tue12/21/24 at 0900, Routine 0837 (Given - Provider: Bouchra Rees RN)2051 (Given - Provider: Yovana Asif RN) 0904 (Not Given - Provider: April Soliman - Reason: Patient/family refused) NIFEdipine XL (Procardia XL) 24 hr tablet 30 mg 30 mg, Oral, Daily, First dose on Tue12/18/24 at 1245, Until Discontinued, STAT 0839 (Given - Provider: Bouchra Rees RN) 0905 (Given - Provider: April Soliman) 0820 (Given - Provider: Kael Siddiqi RN) phosphorus (K Phos Neutral) tablet 1 tablet [...] on Tue12/18/24 at 0945, Until Discontinued, Routine 08 (Given - Provider: Bouchra Rees RN)2052 (Given - Provider: Yovana Asif RN) 09 [...] Rees RN)1321 (Given - Provider: Bouchra Rees RN)171 (Given - Provider: Ritika Augustin RN)2051 (Given - Provider: Yovana Asif RN) sodium chloride 0.9 % flush 10 mL 10 mL, Intravenous, Every 12 hours, First dose on Tue12/17/24 at 1915, Until Discontinued, Routine 628 (Given - Provider: Lela Khan)2051 (Given - Provider: Yovana Asif, GIOVANNY) 911 (Given - Provider: April Soliman)2052 (Given - Provider: Yovana Asif, RN) 918 (Given - Provider: Kael Siddiqi, RN) Tiotropium [place] Monohydrate (Spiriva Respimat) 2.5 MCG/ACT inhaler 2 puff 2 puff, Inhalation, Daily, First dose on Tue12/19/24 at 0900, Until Discontinued, Routine 09 (Not Given - Provider: Beatriz Rees - Reason: Hold for condition: must add comment - Comment: RT in code x3) 0945 (Given - Provider: April Soliman) 0812 (Given - Provider: Kael Siddiqi, GIOVANNY) zonisamide (Zonegran) capsule 300 mg 300 mg, Oral, Daily, First dose on Tue12/18/24 at 0945, Until Discontinued, Routine 0852 (Given - Provider: Bouchra Rees RN) 0906 (Given - Provider: April Soliman) 0814 (Given - Provider: Kael Siddiqi, RN) PRN Medication Order 12/19/2024 12/20/2024 12/21/2024 [...] Rees RN)1324 (Given - Provider: Bouchra Rees RN)205 (See Alternative - Provider: Yovana Asif RN) 0700 (See Alternative - Provider: Yovana Asif RN) metoclopramide (Reglan) tablet 10 mg (CANCELED) 10 mg, Oral, Every 6 hours PRN, Starting on Tue12/19/24 at 1245, Until Tue12/20/24 at 0858, Routine, nausea, vomiting 1321 (Not Given - Provider: Bouchra Rees RN - Reason: Patient/family refused)1324 (See Alternative - Provider: Bouchra Rees RN)205 (Given - Provider: Yovana Asif, GIOVANNY) 0700 (Given - Provider: Yovana Asif RN) metoclopramide (Reglan) tablet 10 mg(Linked Group 5) 10 mg, Oral, Every 6 hours PRN, Starting on Sharri 12/20/24 at 0857, Until Tue12/21/24 at 1401, Routine, nausea, vomiting, use if ondansetron is ineffective after 30 minutes 0814 (Given - Provider: Kael Siddiqi GIOVANNY) ondansetron (Zofran) injection 4 mg 4 mg, Intravenous, Every 6 hours PRN, Starting on Tue12/17/24 at 1505, Until Tue12/21/24 at 1401, Routine, Recovery(Phase II-Outpatient)/On Unit(Inpatient), nausea, vomiting 0150 (Given - Provider: Lela Khan)0838 (Given - Provider: Bouchra Rees RN) 1340 (Given - Provider: Lena Nicolas RN) 0557 (Given - Provider: Yovana Asif, GIOVANNY) oxyCODONE (Roxicodone) immediate release tablet 10 mg(Linked Group 6) 10 mg, Oral, Every 4 hours PRN, Starting on Tue12/17/24 at 1549, Until Tue12/21/24 at 1401, Routine, severe pain 0410 (Given - Provider: Lela Khan)1037 (Given - Provider: Bouchra Rees RN)1717 (Given - Provider: Ritika Augustin RN)2343 (Given - Provider: Yovana Asif RN) 0554 (See Alternative - Provider: Yovana Asif RN)0950 (See Alternative - Provider: April Soliman)1630 (See Alternative - Provider: April Soliman)2050 (Given - Provider: Yovana Asif RN) 0141 (See Alternative - Provider: Yovana Asif RN)0532 (See Alternative - Provider: Yovana Asif RN)1027 (See Alternative - Provider: Kael Siddiqi RN) oxyCODONE (Roxicodone) immediate release tablet 5 mg(Linked [...] April Soliman)2050 (See Alternative - Provider: Yovana Asif, RN) 0141 (Given - Provider: Yovana Asif, RN)0532 (Given - Provider: Yovana Asif, RN)1027 (Given - Provider: Kael Siddiqi RN) [...] documented as of this encounter Care Teams [employer]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
--- OUTSIDE RECORDS SUMMARY | 2024-12-17 07:31 | XMS_ITS | Encounter Summary ---
Author Organization [facility] Address [address] [place] [address] Care Team Providers Care Bookmaker Map Name Role Phone Marge Woodard MD Primary Care Provider [phone] Shiela Vela PIPE FITTINGS MOLDER Unavailable [phone] Reason for Visit * Auth/Cert (Routine) Specialty Diagnoses / Procedures Referred By Contac t Referred To Contact Diagnoses Coronary artery disease involving [place] coronary artery of [place] heart with angina pectoris (CMS/HCC) Coronary artery disease involving [place] coronary artery of [place] heart with angina pectoris (CMS/HCC) [I25.119] Procedures [place] CABG, ARTERIAL, SINGLE CABG, 2 OR MORE VESSELS Boris Al MD [address] [facility] [address] [place] [address] Phone: tel: fax: [facility] [address] [place] [address] Phone: tel: Referral ID Status Reason Start Date Expiration Date Visits Re quested Visits Authorized [id number] 1 1 Encounter Details Date Type Department Care Team (Late st Contact Info) Description 12/17/2024 7:31 AM EDT Anesthesia Event [facility] [address] [place] [address] Swati Burton MD [address] [place] [address] Savanah Seo MD [address] [place] [address] Anesthesia Record Procedure Summary Procedure Name Responsible Anesthesiologist Anesthesia Start Time Anesthesia Stop Time CABG, 2 OR MORE VESSELS Swati Burton MD 12/17/24 0731 12/17/24 1541 Events Date Time Event Comment 12/17/2024 0722 Perfusion Start 0731 An Start The patient was reevaluated immediately before sedation and remains eligible for anesthesia plan. 0731 An Start Data 0731 ANPATVER 0733 In Room 0738 Jose Alfredo 0752 An Induction The patient was reevaluated immediately before moderate or deep sedation use and before anesthesia induction. 0755 An Intubation 0825 Anesthesia Ready 0851 Proc Start 0851 Autotransfusion Start 0853 Sternotomy 1027 An Aortic Cannula 1033 ACT Performed 749 1033 Art Line Pulse/Test 1033 Labs 1037 An Venous Cannula 1040 An CV Bypass init 1054 AN Active Cool 1055 Clamp On 1058 an susanna now 1103 Labs 1103 ACT Performed >1005 1115 HC (UF) Start 1124 HC (UF) Stop 1126 AN Active Warm Rewarming to 32C 1131 Labs 1131 ACT Performed 758 1135 HC (UF) Start 1140 Jose Alfredo Fully rewarming 1157 Labs 1157 ACT Performed 619 1157 HC (UF) Stop 1220 Labs 1220 ACT Performed 532 1252 ACT Performed 606 1252 Labs 1255 HC (UF) Start 1317 Clamp Off 1317 An Clamp Off 1322 HC (UF) Stop 1326 Labs 1326 ACT Performed 632 1334 An CV Bypass Ended 1351 ACT Performed 140 1415 ACT Performed 126 1441 Autotransfusion Stop 1458 Proc Fin 1514 Perfusion Stop 1517 an stop data 1520 Out of Room 1541 An Stop 1541 Handoff to Receiving I compl eted my handoff to the receiving clinician during which we: 1. Identified the patient 2. Identified the responsible provider 3. Reviewed the pertinent medical history 4. Discussed the surgical course 5. Reviewed intra-op anesthesia management and issues during anesthesia 6. Set expectations for post-procedure period 7. Allowed opportunity for questions and acknowledgement of understanding. Meds Name Total propofol (Diprivan) injection 10 mg/mL 1 70 mg rocuronium (ZeMuron) injection 10 mg/mL 140 mg fentaNYL (Sublimaze) injection 50 mcg/mL 1,000 mcg midazolam (Versed) injection 1 mg/mL 14 mg heparin injection 1,000 units/mL 33,000 Units heparin (porcine) injection 1,000 units/ mL 10,000 Units protamine injection 300 mg lidocaine PF (Xylocaine-MPF) 2% 80 mg EPINEPHrine in sodium chloride 0.9% 8 MG /250ML 0.05 mg cardioplegia [place] solution 2, 800 mL magnesium sulfate 4 g in sodium chloride 0.9 % 100 mL IVPB 4 g Prime for CPB (OSM) 800 mL phenylephrine (Vazculep) injection 10 mg /mL 7,150 mcg norepinephrine (Levophed) injection 1 mg /mL 56 mcg norepinephrine in 0.9% NaCl infusion 32 mcg/mL 0.05 mg ceFAZolin (Ancef) vial 1 g 3 g esmolol (Brevibloc) injection 10 mg/mL 3 0 mg tranexamic acid (Cyklokapron) injection 100 mg/mL 1,000 mg nitroglycerin (Tridil) infusion 200 mcg/ mL 0.69 mg tranexamic acid (Cyklokapron ) 1,000 mg in sodium chloride 0.9 % 100 mL (10 mg/mL) IVPB 288.92 mg sodium bicarbonate injection 1 mEq/mL 20 0 mEq insulin regular (HumuLIN R,N ovoLIN R) 100 Units in sodium chloride 0.9 % 100 mL infusion 19 Units insulin regular injection in 0.9% NS 1 u nit/mL 35 Units dexmedetomidine (Precedex) injection 100 mcg/mL 40 mcg lactated Ringer's infusion 100 mL sodium chloride 0.9 % infusion 800 mL sodium chloride 0.9 % infusion 0 mL * Agents Name O2 Air Isoflurane Inspired Isoflurane * Blood Name Total PRBC 700 mL Lines, Drains, and Airways Type Details Placement Removal Peripheral IV Placement Date: 12/17/24; Placement Time: 721; Catheter Size: 20 G; Orientation: Left; Location: Antecubital; Site Prep: Alcohol; Local Anesth: None; Technique: Ultrasound guidance; Inserted by: Dr. Seo; Insertion Attempts: 1; Patient Tolerance: Tolerated well; Removal Date: 12/19/24; Removal Time: 1800; Removal Reason: Per patient/family request 12/17/24721 by Chari Francisco RN 12/19/24 1800 by Ritika Augustin RN Arterial Line Placement Date: 12/17/24; Placement Time: 0752 (created via procedure documentation); Size: 20 G; Orientation: Right; Location: Radial; Inserted by: Other Anesthesia Staff; Securement: Taped; Patient Tolerance: Tolerated well; Removal Date: 12/18/24; Removal Time: 1530; Removal Reason: Per order 12/17/24 0752 by Savanah Seo MD 12/18/24 1530 by Bouchra Rees RN ETT Placement Date: 12/17/24; Placement Time: 0755 (created via procedure documentation); Mask Ventilation: 1; Technique: Direct laryngoscopy; Type: ETT - single; Single Lumen Tube Size: 8 mm; Cuffed: Yes; Laryngoscope: Aleksey; Blade Size: 3; Location: Oral; Insertion Attempts: 1; Placement Verification: Auscultation, Capnometry; Airway Comments: Atraumatic. No change to dentition. ; Placed by: Other (Comment); Removal Date: 12/17/24; Removal Time: 1730 12/17/24 0755 by Savanah Seo MD 12/17/24 1730 by Beatriz Rees Urethral Catheter Placement Date: 12/17/24; Placement Time: 0803; Inserted by: Ann Hopson RN; Type: Temperature probe; Size: 16 Fr.; Balloon Size: 10 mL; Urine Returned: Yes; Removal Date: 12/19/24; Removal Time: 0630; Removal Reason: Per order 12/17/24 0803 by Sherrie Hopson RN 12/19/24 0630 by Lela Khan CVC Single Lumen Placement Date: 12/17/24; Placement Time: 0816 (created via procedure documentation); Hand Hygiene: Yes; Site Prep: Chlorhexidine ; Site Prep Agent Dried: Yes; Sterile Barrier Used: Yes; Size: 9 Fr; Line Length(cm): 20; Orientation: Right; Location: Internal jugular; Placement Verification: Blood return, Ultrasound; Removal Date: 12/19/24; Removal Time: 0130; Removal Reason: Per order 12/17/24 0816 by Savanah Seo MD 12/19/24 0130 by Lela Khan Introducer Placement Date: 12/17/24; Placement Time: 0816 (created via procedure documentation); Hand Hygiene: Yes; Location: Internal jugular; Orientation: Right; Placement Verified by: Pressure tracing changes; Removal Date: 12/18/24; Removal Time: 1500 12/17/24 0816 by Savanah Seo MD 12/18/24 1500 by Bouchra Rees script girl 12/17/24; 0855; N; Y es; Surgical; Sternum; 12/21/24; 1035; Other (discharged) 12/17/24 0855 by Sherrie Hopson RN 12/21/24 1035 by Kael Siddiqi RN Wound 12/17/24; 0855; N; Y es; Surgical; Pretibial; Left, Proximal; 12/21/24; 1035; Other (discharged) 12/17/24 0855 by Sherrie Hopson RN 12/21/24 1035 by Kael Siddiqi RN Peripheral IV Placement Date: 12/17/24; Placement Time: 1300 (in OR); Catheter Size: 20 G; Orientation: Anterior, Right, Upper; Location: Arm; Removal Date: 12/21/24; Removal Time: 1030; Removal Reason: Discharge 12/17/24 1300 by Matt Mane RN 12/21/24 1030 by Selin Bartlett Chest Tube 1 and 2 12/17/24; 1425; No; 12/17/24; Yes; Mediastinal; 36 Fr.; Pleural; 28 Fr.; Per protocol 12/17/24 1425 by Sherrie Hopson RN 12/20/24 1100 by Lena Nicolas RN documented in this encounter Social History Tobacco [...] any time in the past 12 m [facility], were you homeless or living [...] Author No Risk Indicated 12/20/2024 8:00 AM Lena Chau RN * Question Answer Date of Assessment Author 1. Wish to be (Past 1 Month) No 12/20/2024 8:00 AM Lena Chau, RN 2. Non-Specific Active Suici jorge Thoughts (Past 1 Month) No 12/20/2024 8:00 AM EDT Alka Nicolas RN 6. Suicidal Behavior (Lifetime) No 8:00 AM EDT Lena Nicolas RN documented as of this encounter Miscellaneous Notes * Anesthesia Procedure Notes - Savanah Seo MD - 12/18/2024 7:38 AM EDT Associated Order(s): Nerve Block Nerve Block Performed by: Savanah Seo MD Authorized by: Swati Burton MD Consent: Consent obtained: Written Consent given by: Patient Risks, benefits, and alternatives were discussed: yes Risks discussed: Allergic reaction, bleeding, intravenous injection, infection, nerve damage, pain and swelling [place] protocol: Procedure explained and questions answered to patient or proxy's satisfaction: yes Relevant documents present and verified: yes Test results available: yes Imaging studies available: yes Required blood products, implants, devices, and special equipment available: yes Site/side marked: yes Patient identity confirmed: Arm band Attending Supervision?: yes Indications: Indications: Pain relief Location: Laterality: Bilateral Pre-procedure details: Skin preparation: Chlorhexidine Skin anesthesia: Skin anesthesia method: None Procedure details: Block needle gauge: 22 G Guidance: ultrasound Anesthesia technique comment: Bilateral PECS block Anesthetic injected: Bupivacaine 0.25% w/o epi Steroid injected: None Additive injected: None Post-procedure details: Procedure completion: Tolerated Comments: Performed immediately after drapes were dropped, prior to transport to ICU. Cosigned by Swati Burton MD at 01/07/2025 1:54 PM EDT Associated attestation - Swati Burton MD - 01/07/2025 1:54 PM EDT I was present during all critical and beasley portions of the procedure(s) and immediately available surgical specialty center services the entire duration. See resident note for details. * Anesthesia Postprocedure Evaluation - Savanah Seo MD - 12/17/2024 3:51 PM EDT Patient: Beverley Antoine Anesthesia Type: No value filed. Vitals Value Taken Time BP 80/58 12/17/24 15:51 Temp 36.4 12/17/24 15:51 Pulse 71 12/17/24 15:51 Resp 15 12/17/24 15:51 SpO2 99 12/17/24 15:51 Anesthesia Post Evaluation Patient location during evaluation: ICU Patient participation: complete - patient cannot participate Pain management: adequate (pain score 0-3) Airway patency: endotracheal device Cardiovascular status: hemodynamically stable Respiratory status: ventilator Hydration status: acceptable Comments: Patient transported to the ICU while being monitored. Handoff given to the icu team at bedside No notable events documented. Cosigned by Swati Burton MD at 12/17/2024 4:03 PM EDT Associated attestation - Swati Burton MD - 12/17/2024 4:03 PM EDT I agree with the findings and care plan documented in the postprocedure evaluation note. * Anesthesia Procedure Notes - Swati Burton MD - 12/17/2024 2:20 PM EDT Associated Order(s): BARRY Procedure Performed: BARRY General Procedure Information Diagnostic Indications for BARRY: assessment of ascending aorta, hemodynamic monitoring Physician Requesting Echo: Boris Al MD Location performed: OR Modalities: 2D only, color flow mapping and pulse wave doppler Intubated Heart visualized Probe Type: Biplane Preanesthesia Checklist: Patient identified, IV checked, risks and benefits discussed, surgical consent, monitors and equipment checked and pre-op evaluation. Echocardiographic and Doppler Measurements Ventricles Right Ventricle: Cavity size normal. Global function normal. Left Ventricle: Cavity size normal. Global Function mildly impaired. Valves Aortic Valve: Annulus normal. Stenosis not present. Regurgitation +1. Leaflets normal. Mitral Valve: Annulus normal. Regurgitation +2. Leaflets normal. Tricuspid Valve: Annulus normal. Regurgitation +1. Leaflets normal. Pulmonic Valve: Annulus normal. Regurgitation +1. Leaflets normal. Aorta Ascending Aorta: Size normal. Dissection not present. Plaque thickness less than 3 mm. Mobile plaque not present. Aortic Arch: Size normal. Dissection not present. Plaque thickness less than 3 mm. Mobile plaque not present. Descending Aorta: Size normal. Dissection not present. Plaque thickness less than 3 mm. Mobile plaque not present. Atria Right Atrium: Size normal. Left Atrium: Size normal. Left atrial appendage normal. Septa Atrial Septum: Intra-atrial septal morphology normal. Diastolic Function Measurements: Diastolic Dysfunction Grade= I E= ms A= ms E/A Ratio= DT= ms S/D= IVRT= ms Postprocedure Post Cardiac Surgery/Repair: Right ventricular post CPB function is preserved. Left ventricular post CPB function is preserved. Anesthesia Information Performed Anesthesiologist Anesthesiologist: Swati Burton MD Echocardiogram Comments: Briefly this is a 59 with mvCAD going for CABG 1. Mildly reduced LV function, LVEF 45% by visualization. Akinesis of inferior wall, hypokinesis ofinferoseptal and inferolateral mcfarlane. Normal LV size. Impaired relaxation pattern of diastolic filling. 2. Normal RV size and function 3. Mild central AI (vena contracta 0.18 cm), trileaflet aortic valve, no stenosis. 4. Mild-moderate MR with central posteriorly directed jet. Vena contracta 0.43 cm. 5. Trace TR, trace PI 6. No PFO by CFD 7. No clot visualized within MINI S/p CABG x3 1. Mild improvement in LV function with LVEF 50% by visualization. RV function as above 2. Valves as above 3. Aorta intact s/p decannulation. Findings communicated with surgeon. * Anesthesia Procedure Notes - Savanah Seo MD - 12/17/2024 9:26 AM EDT Associated Order(s): Central Venous Line Central Venous Line: Date/Time: 12/17/2024 8:16 AM A central venous line was placed in the OR for the following indication(s): central venous access and CVP monitoring. Sterility preparation included the following: provider hand hygiene performed prior to central venous catheter insertion, all 5 sterile barriers used (gloves, gown, cap, mask, large sterile drape) during central venous catheter insertion, antiseptic used during central venous catheter insertion andskin prep agent completely dried prior to procedure. The patient was placed in Trendelenburg position. Right internal jugular vein was prepped. The site was prepped with Chlorhexidine. A 9 Fr (size), 20 (length), introducer single lumen was placed. During the procedure, the following specific steps were taken: target vein identified, needle advanced into vein and blood aspirated and guidewire advanced into vein. Seldinger technique used Procedure performed using ultrasound guidance Sterile gel and probe cover used in ultrasound-guided central venous catheter insertion. Intravenous verification was obtained by ultrasound, venous blood return and manometry. Post insertion care included: all ports aspirated, all ports flushed easily, guidewire removed intact, Biopatch applied, line sutured in place and dressing applied. During the procedure the patient experienced: patient tolerated procedure well with no complications. PA Catheter Placed A oximetric, 7.5 (size) Pulmonary Artery Catheter (PAC) was placed through the Introducer CVL in the right internal jugular vein. The PAC placement was confirmed by pressure tracing changes and secured at 46 cm (depth). The patient experienced the following events during the procedure: patient tolerated procedure wellwith no complications. Staffing Performed: Other Anesthesia Staff Other anesthesia staff: Savanah Seo MD Ultrasound was used to visualize vascular needle entry into the internal jugular vessel AND ultrasound image was retained. Ultrasound was used to visualize vascular needle entry into the internal jugular vein AND ultrasound image was retained. Cosigned by Swati uBrton MD at 12/17/2024 4:03 PM EDT Associated attestation - Swati Burton MD - 12/17/2024 4:03 PM EDT I was present during all critical and beasley portions of the procedure(s) and immediately available tofurnish services the entire duration. See resident note for details. * Anesthesia Procedure Notes - Savanah Seo MD - 12/17/2024 9:25 AM EDT Associated Order(s): Arterial Line Arterial Line: Date/Time: 12/17/2024 7:52 AM An arterial line was placed. Procedure performed using ultrasound guidance in the OR for the following indication(s): continuousblood pressure monitoring and CABG. Ultrasound was used to visualize vascular needle entry into the radial artery AND ultrasound image was retained. A 20 gauge (size), 1 and 3/4 inch (length), Arrow (type) catheter was placed into the Right radial artery and secured by tape. Seldinger technique used Events: patient tolerated procedure well with no complications. Staffing Performed: Other Anesthesia Staff Other anesthesia staff: Savanah Seo MD Cosigned by Swati Burton MD at 12/17/2024 4:03 PM EDT Associated attestation - Swati Burton MD - 12/17/2024 4:03 PM EDT I was present during all critical and beasley portions of the procedure(s) and immediately available tofurnish services the entire duration. See resident note for details. * Anesthesia Procedure Notes - Savanah Seo MD - 12/17/2024 8:49 AM EDT Associated Order(s): Airway Airway Date/Time: 12/17/2024 7:55 AM Reason: elective Airway not difficult General Information and Staff Patient location during procedure: OR Other anesthesia staff: Jose Nick DO Performed: Other Anesthesia Staff Patient Condition Indications for airway management: anesthesia Patient position: sniffing Final Airway Details Final airway type: endotracheal airway Successful airway: ETT Cuffed: yes Successful intubation technique: direct laryngoscopy Adjuncts used in placement: intubating stylet Endotracheal tube insertion site: oral Blade: Aleksey Blade size: #3 ETT size (mm): 8.0 Placement verified by: chest auscultation and capnometry Measured from: lips ETT to lips (cm): 22 Additional Comments Atraumatic. No change to dentition. Cosigned by Swati Burton MD at 12/17/2024 4:03 PM EDT Associated attestation - Swati Burton MD - 12/17/2024 4:03 PM EDT I was present during all critical and beasley portions of the procedure(s) and immediately available surgical specialty center services the entire duration. See resident note for details. * Anesthesia Preprocedure Evaluation - Savanah Seo MD - 12/16/2024 6:29 PM EDT Images from the original note were not included. Anesthesiologist: (Unknown) ASSEMBLER TRUCK TRAILER: (Unknown) Disability Manager: (Unknown) Patient: Beverley Antoine is a 59 y.o. female with body mass index is unknown because there is no height or weight on file. who presents with CAD (coronary artery disease), now for CABG, 2 OR MORE VESSELS (N/A) Procedure Information Date/Time: 12/17/24 0700 Procedure: CABG, 2 OR MORE VESSELS Location: [facility] OR / [facility] OR Surgeons: Boris Al MD Relevant Problems Cardio (+) Angina pectoris (+) CAD (coronary artery disease) (+) CAD in [place] artery Neuro/Psych (+) S/P total knee replacement, left (+) Seizures (CMS/HCC) Pulmonary (+) Chronic obstructive pulmonary disease with (acute) exacerbation (CMS/HCC) ALLERGIES Allergies[1] NPO STATUS Past Medical History[2] AIRWAY HISTORY Airway Detailed Review Displaying the 20 most recent records Date Difficult Airway Blade Size ETT Size C-L Class Final Type Intubation Method 02/14/24 - - - - - - 04/29/23 - - - - - - 07/26/22 - - - - - - 11/11/21 - - - - - - 10/27/21 - - - - - - 02/09/21 - - - - - - 11/17/20 - - - - - - 08/11/17 - - - - - - 03/15/17 - - - - - - MEDICATIONS Outpatient Current Outpatient Medications Medication Instructions Acetaminophen 500 MG pack Take by mouth. albuterol 108 (90 Base) MCG/ACT inhaler 2 puffs, 4 times daily atorvastatin (LIPITOR) 40 mg, Nightly cholecalciferol (VITAMIN D-3) 10,000 Units, Daily Cyanocobalamin (VITAMIN B 12 PO) Take by mouth. folic acid (FOLVITE) 1 mg, Daily metFORMIN (GLUCOPHAGE) 500 mg, 2 times daily with meals Multiple Vitamin (multivitamin) tablet 1 tablet, Daily pregabalin (LYRICA) 50 mg, 2 times daily QUEtiapine (SEROQUEL) 200 mg, Nightly rOPINIRole (REQUIP) 5 mg, Nightly sacubitril-valsartan (Entresto) 24-26 MG tablet 1 tablet, 2 times daily Tiotropium Laie Monohydrate (SPIRIVA HANDIHALER IN) 1 puff, Nightly zonisamide (ZONEGRAN) 100 mg, 3 times daily Scheduled Current Scheduled Medications[3] PRNs Current PRN Medications[4] SURGICAL HX: Surgical History[5] SOCIAL HX: Social History[6] OBJECTIVE DATA LABS Lab Results Component Value Date WBC 5.90 12/13/2024 HGB 10.5 (L) 12/13/2024 HCT 32.2 (L) 12/13/2024 MCV 100 (H) 12/13/2024 PLT 218 12/13/2024 Lab Results Component Value Date CALCIUM 9.0 12/13/2024 BUN 14 12/13/2024 CREATININE 0.69 12/13/2024 BCR 20 12/13/2024 NA 140 12/13/2024 K 4.2 12/13/2024 CL 108 (H) 12/13/2024 CO2 22 12/13/2024 Type and Screen No results found for: ABO Results from last 7 days Lab Units 12/14/24 0000 12/13/24 1242 APTT sec -- >200* PARTIAL THROMBOPLASTIN TIME (PTT) EXTERNAL 35 -- INR -- 1.1 Lab Results Component Value Date HGBA1C 5.8 (H) 12/13/2024 Lab Results Component Value Date GLUCOSE 81 12/13/2024 ABG No results found for: PHART , JMZ2IKD , PO2ART , SO2ART , BEART , ZAY3NQY , HCTART , SODIUMART , POTASSIUMART , POCTCL , POCGLU , IONCALART , LACTATE No results found for: PH , PCO2 , PO2 , M4QYRZQL , BASEEXC , HCTSYR , KSYR , CLSYR , GLUSYR , CAION , LACTATE ECHO No echocardiogram results found for the past 12 months PFTs No results found for: AAK0RAV , PSB9SJST , FNH2KZI , FVCPRED BP Readings from Last 5 Encounters: 12/13/24 99/62 11/08/24 106/68 Physical Exam Airway Mallampati: II TM distance: >3 FB Neck ROM: full Cardiovascular Rhythm: regular Rate: normal (+) murmur Dental (+) upper dentures, lower dentures Pulmonary (+) decreased breath sounds Neurological Skin Musculoskeletal Extremities Anesthesia Plan ASA 4 Plan was reviewed with: resident and attending Anesthesia technique(s) discussed with the patient/family: general Anesthesia plan agreed upon was: general and regional Anesthetic plan and risks discussed with patient. Use of blood products discussed with patient who consented to blood products. ROS Cardiovascular: angina, CAD, CHF, hyperlipidemia, past FL and valvular heart disease (trace TR, mild MR, moderate AI). Respiratory: lung cancer (Stage 4 SCC s/p chem/rads). COPD: Respiratory ROS additional comments: Smoking: Neurological: seizures (on zonegran): Neuro additional comments: Depression, anxiety Hematological/Lymphatic: Hem/Lymph ROS additional comments: INR: 1.1 aPTT >200, however repeat aPTT reported a value 35 Endocrine/Metabolic: diabetes mellitus (HbA1C: 5.8). [1] Allergies Allergen Reactions Poison [place] Extract Other [...] please document in the comment field seizure [2] Past Medical History: Diagnosis Date Cancer (CMS/HCC) Lung CHF (congestive heart failure) ([facility]/HCC) COPD (chronic obstructive pulmonary disease) ([facility]/HCC) Coronary artery disease Diabetes mellitus ([facility]/HCC) Hyperlipidemia Myocardial infarction (CMS/HCC) Pneumonia Stroke ([facility]/HCC) [3] [4] [5] Past Surgical History: Procedure Laterality Date ABDOMINAL SURGERY multiple, benign tumors and scar tissue ANKLE SURGERY BRONCHOSCOPY CENTRAL VENOUS CATHETER INSERTION HERNIA REPAIR HYSTERECTOMY TOTAL KNEE ARTHROPLASTY Bilateral [6] Social History Tobacco Use Smoking status: Every Day Current packs/day: 0.50 Average packs/day: 0.5 packs/day for 50.5 years (25.3 ttl pk-yrs) Types: Cigarettes Start date: 1974 Smokeless tobacco: Never Tobacco comments: She has been quitting, very close. Vaping Use Vaping status: Never Used Substance Use Topics Alcohol use: Not Currently Drug use: Yes Types: Marijuana Comment: daily, joint, takes a few hits throughout day Cosigned by Swati Burton MD at 12/17/2024 4:03 PM EDT Associated attestation - Swati Burton MD - 12/17/2024 4:03 PM EDT I agree with the findings and care plan documented in the preprocedure evaluation note. documented in this encounter Plan of Treatment Not on file documented as of this encounter Procedures Procedure Name Priority Date/Time Associated Diagnosis Comments NERVE BLOCK Routine 12/18/2024 7:38 AM EDT PB ANESTHESIA NON-TIMED PROCEDURE PLACEHOLDER Routine 12/17/2024 2:20 PM EDT PB POINT OF CARE IMAGING PLACEHOLDER Routine 12/17/2024 8:16 AM EDT [place] INSERT/PLACE FLOW DIRECT CATH Routine 12/17/2024 8:16 AM EDT ANESTHESIA ULTRASOUND GUIDED Routine 12/17/2024 8:16 AM EDT PB ANESTHESIA NON-TIMED PROCEDURE PLACEHOLDER Routine 12/17/2024 8:16 AM EDT [place] AN CENTRAL LINE SINGLE LUMEN Routine 12/17/2024 8:16 AM EDT PB ANESTHESIA PLACEHOLDER Routine 12/17/2024 7:55 AM EDT [place] AN ELECTIVE ENDOTRACHEAL AIRWAY Routine 12/17/2024 7:55 AM EDT PB POINT OF CARE IMAGING PLACEHOLDER Routine 12/17/2024 7:52 AM EDT PB ANESTHESIA NON-TIMED PROCEDURE PLACEHOLDER Routine 12/17/2024 7:52 AM EDT documented in this encounter Results * Nerve Block (12/18/2024 7:38 AM EDT) Narrative Swati Burton MD - 12/18/2024 7:38 AM EDT Swati Burton MD 01/07/2025 1:54 PM Nerve Block Performed by: Savanah Seo MD Authorized by: Swati Burton MD Consent: Consent obtained: Written Consent given by: Patient Risks, benefits, and alternatives were discussed: yes Risks discussed: Allergic reaction, bleeding, intravenous injection, infection, nerve damage, pain and swelling [place] protocol: Procedure explained and questions answered to patient or proxy's satisfaction: yes Relevant documents present and verified: yes Test results available: yes Imaging studies available: yes Required blood products, implants, devices, and special equipment available: yes Site/side marked: yes Patient identity confirmed: Arm band Attending Supervision?: yes Indications: Indications: Pain relief Location: Laterality: Bilateral Pre-procedure details: Skin preparation: Chlorhexidine Skin anesthesia: Skin anesthesia method: None Procedure details: Block needle gauge: 22 G Guidance: ultrasound Anesthesia technique comment: Bilateral PECS block Anesthetic injected: Bupivacaine 0.25% w/o epi Steroid injected: None Additive injected: None Post-procedure details: Procedure completion: Tolerated Comments: Performed immediately after drapes were dropped, prior to transport to ICU. us Swati Burton MD IN CLINIC/BEDSIDE ORDERABL ES Final Result * PB ANESTHESIA NON-TIMED PROCEDURE PLACEHOLDER (12/17/2024 2:20 PM EDT) BSA 1.76 m2 CAR DO NOT SEND Anatomical Region Laterality Modality Other Narrative 12/17/2024 2:20 PM EDT Swati Burton MD 12/17/2024 2:28 PM Procedure Performed: BARRY General Procedure Information Diagnostic Indications for BARRY: assessment of ascending aorta, hemodynamic monitoring Physician Requesting Echo: Boris Al MD Location performed: OR Modalities: 2D only, color flow mapping and pulse wave doppler Intubated Heart visualized Probe Type: Biplane Preanesthesia Checklist: Patient identified, IV checked, risks and benefits discussed, surgical consent, monitors and equipment checked and pre-op evaluation. Echocardiographic and Doppler Measurements Ventricles Right Ventricle: Cavity size normal. Global function normal. Left Ventricle: Cavity size normal. Global Function mildly impaired. Valves Aortic Valve: Annulus normal. Stenosis not present. Regurgitation +1. Leaflets normal. Mitral Valve: Annulus normal. Regurgitation +2. Leaflets normal. Tricuspid Valve: Annulus normal. Regurgitation +1. Leaflets normal. Pulmonic Valve: Annulus normal. Regurgitation +1. Leaflets normal. Aorta Ascending Aorta: Size normal. Dissection not present. Plaque thickness less than 3 mm. Mobile plaque not present. Aortic Arch: Size normal. Dissection not present. Plaque thickness less than 3 mm. Mobile plaque not present. Descending Aorta: Size normal. Dissection not present. Plaque thickness less than 3 mm. Mobile plaque not present. Atria Right Atrium: Size normal. Left Atrium: Size normal. Left atrial appendage normal. Septa Atrial Septum: Intra-atrial septal morphology normal. Diastolic Function Measurements: Diastolic Dysfunction Grade= I E= ms A= ms E/A Ratio= DT= ms S/D= IVRT= ms Postprocedure Post Cardiac Surgery/Repair: Right ventricular post CPB function is preserved. Left ventricular post CPB function is preserved. Anesthesia Information Performed Anesthesiologist Anesthesiologist: Swati Burton MD Echocardiogram Comments: Briefly this is a 59 with mvCAD going for CABG 1. Mildly reduced LV function, LVEF 45% by visualization. Akinesis of inferior wall, hypokinesis of inferoseptal and inferolateral mcfarlane. Normal LV size. Impaired relaxation pattern of diastolic filling. 2. Normal RV size and function 3. Mild central AI (vena contracta 0.18 cm), trileaflet aortic valve, no stenosis. 4. Mild-moderate MR with central posteriorly directed jet. Vena contracta 0.43 cm. 5. Trace TR, trace PI 6. No PFO by CFD 7. No clot visualized within MINI S/p CABG x3 1. Mild improvement in LV function with LVEF 50% by visualization. RV function as above 2. Valves as above 3. Aorta intact s/p decannulation. Findings communicated with surgeon. us Swati Burton MD ANESTHESIA ORDERABLES Edit ed Result - Final * [place] AN CENTRAL LINE SINGLE LUMEN, PB ANESTHESIA NON-TIMED PROCEDURE PLACEHOLDER, ANESTHESIA ULTRASOUND GUIDED, [place] INSERT/PLACE FLOW DIRECT CATH, PB POINT OF CARE IMAGING PLACEHOLDER (12/17/2024 8:16 AM EDT) Narrative Swati Burton MD - 12/17/2024 8:16 AM EDT Swati Burton MD 12/17/2024 4:03 PM Central Venous Line: Date/Time: 12/17/2024 8:16 AM A central venous line was placed in the OR for the following indication(s): central venous access and CVP monitoring. Sterility preparation included the following: provider hand hygiene performed prior to central venous catheter insertion, all 5 sterile barriers used (gloves, gown, cap, mask, large sterile drape) during central venous catheter insertion, antiseptic used during central venous catheter insertion and skin prep agent completely dried prior to procedure. The patient was placed in Trendelenburg position. Right internal jugular vein was prepped. The site was prepped with Chlorhexidine. A 9 Fr (size), 20 (length), introducer single lumen was placed. During the procedure, the following specific steps were taken: target vein identified, needle advanced into vein and blood aspirated and guidewire advanced into vein. Seldinger technique used Procedure performed using ultrasound guidance Sterile gel and probe cover used in ultrasound-guided central venous catheter insertion. Intravenous verification was obtained by ultrasound, venous blood return and manometry. Post insertion care included: all ports aspirated, all ports flushed easily, guidewire removed intact, Biopatch applied, line sutured in place and dressing applied. During the procedure the patient experienced: patient tolerated procedure well with no complications. PA Catheter Placed A oximetric, 7.5 (size) Pulmonary Artery Catheter (PAC) was placed through the Introducer CVL in the right internal jugular vein. The PAC placement was confirmed by pressure tracing changes and secured at 46 cm (depth). The patient experienced the following events during the procedure: patient tolerated procedure well with no complications. Staffing Performed: Other Anesthesia Staff Other anesthesia staff: Savanah Seo MD Ultrasound was used to visualize vascular needle entry into the internal jugular vessel AND ultrasound image was retained. Ultrasound was used to visualize vascular needle entry into the internal jugular vein AND ultrasound image was retained. Swati Burton MD ANESTHESIA ORDERABLES Kaia l Result * [place] AN ELECTIVE ENDOTRACHEAL AIRWAY, PB ANESTHESIA PLACEHOLDER (12/17/2024 7:55 AM EDT) Narrative Swati Burton MD - 12/17/2024 7:55 AM EDT Swati Burton MD 12/17/2024 4:03 PM Airway Date/Time: 12/17/2024 7:55 AM Reason: elective Airway not difficult General Information and Staff Patient location during procedure: OR Other anesthesia staff: Jose Nick DO Performed: Other Anesthesia Staff Patient Condition Indications for airway management: anesthesia Patient position: sniffing Final Airway Details Final airway type: endotracheal airway Successful airway: ETT Cuffed: yes Successful intubation technique: direct laryngoscopy Adjuncts used in placement: intubating stylet Endotracheal tube insertion site: oral Blade: Aleksey Blade size: #3 ETT size (mm): 8.0 Placement verified by: chest auscultation and capnometry Measured from: lips ETT to lips (cm): 22 Additional Comments Atraumatic. No change to dentition. Swati Burton MD ANESTHESIA ORDERABLES Kaia l Result * PB ANESTHESIA NON-TIMED PROCEDURE PLACEHOLDER, PB POINT OF CARE IMAGING PLACEHOLDER (12/17/2024 7:52 AM EDT) Narrative Swati Burton MD - 12/17/2024 7:52 AM EDT Swati Burton MD 12/17/2024 4:03 PM Arterial Line: Date/Time: 12/17/2024 7:52 AM An arterial line was placed. Procedure performed using ultrasound guidance in the OR for the following indication(s): continuous blood pressure monitoring and CABG. Ultrasound was used to visualize vascular needle entry into the radial artery AND ultrasound image was retained. A 20 gauge (size), 1 and 3/4 inch (length), Arrow (type) catheter was placed into the Right radial artery and secured by tape. Seldinger technique used Events: patient tolerated procedure well with no complications. Staffing Performed: Other Anesthesia Staff Other anesthesia staff: Savanah Seo MD Swati Burton MD ANESTHESIA ORDERABLES Kaia l Result documented in this encounter Visit Diagnoses Not on filedocumented in this encounter Administered Medications Inactive Administered Medications - up to 3 most recent administrations Medication Order MAR Action Action Date Dose Rate Site cardioplegia [place] solution Perfusion, Continuous PRN, Starting on Tue12/17/24 at 1103, Until Tue12/17/24 at 1550, Routine Bolus 12/17/2024 1:19 PM EDT 300 mL Bolus 12/17/2024 1:00 PM EDT 300 mL Bolus 12/17/2024 12:36 PM EDT 300 mL ceFAZolin (Ancef) injection Intravenous, As needed, Starting on Tue12/17/24 at 0835, Until Tue12/17/24 at 1550, Routine, Anesthesia Intraprocedure Given 12/17/2024 12:27 PM EDT 1 g Given 12/17/2024 8:35 AM EDT 2 g dexmedetomidine (Precedex) 100 MCG/ML concentrated solution Intravenous, As needed, Starting on Tue12/17/24 at 1430, Until Tue12/17/24 at 1550, Routine, Anesthesia Intraprocedure Given 12/17/2024 2:45 PM EDT 20 mcg Given 12/17/2024 2:30 PM EDT 20 mcg EPINEPHrine infusion 8 mg in NS 250 mL (0.032 mg/mL) (compounding pharmacy premix) Intravenous, Continuous PRN, Starting on Tue12/17/24 at 1323, Until Tue12/17/24 at 1550, Routine, Anesthesia Intraprocedure Rate/Dose Change 12/17/2024 1:34 PM EDT 0.02 mcg/kg/min 2.621 mL/hr New Bag 12/17/2024 1:23 PM EDT 0.05 mcg/kg/min 6.553 mL /hr esmolol (Brevibloc) injection Intravenous, As needed, Starting on Tue12/17/24 at 0901, Until Tue12/17/24 at 1550, Routine, Anesthesia Intraprocedure Given 12/17/2024 9:01 AM EDT 30 mg fentaNYL (Sublimaze) injection Intravenous, As needed, Starting on Tue12/17/24 at 0750, Until Tue12/17/24 at 1550, Routine, Anesthesia Intraprocedure Given 12/17/2024 3:35 PM EDT 100 mcg Given 12/17/2024 10:09 AM EDT 100 mcg Given 12/17/2024 9:23 AM EDT 50 mcg heparin (porcine) injection Intravenous, As needed, Starting on Tue12/17/24 at 1000, Until Tue12/17/24 at 1550, Routine, Anesthesia Intraprocedure Given 12/17/2024 10:24 AM EDT 28,000 Units Given 12/17/2024 10:00 AM EDT 5,000 Units heparin (porcine) injection Intravenous, As needed, Starting on Tue12/17/24 at 1229, Until Tue12/17/24 at 1550, Routine, Anesthesia Intraprocedure Given 12/17/2024 12:29 PM EDT 10,000 Units insulin regular (HumuLIN R,NovoLIN R) 100 Units in sodium chloride 0.9 % 100 mL infusion Intravenous, Continuous PRN, Starting on Tue12/17/24 at 1113, Until Tue12/17/24 at 1550, Routine Rate/Dose Change 12/17/2024 1:15 PM EDT 2 Units/hr 2 mL/hr Rate/Dose Change 12/17/2024 12:24 PM EDT 10 Units/hr 10 mL /hr Rate/Dose Change 12/17/2024 12:02 PM EDT 6 Units/hr 6 mL/h r insulin regular in sodium chloride 0.9 % 1 UNIT/ML infusion Intravenous, As needed, Starting on Tue12/17/24 at 1115, Until Tue12/17/24 at 1550, Routine, Anesthesia Intraprocedure Given 12/17/2024 12:24 PM EDT 12 Units Given 12/17/2024 12:00 PM EDT 10 Units Given 12/17/2024 11:34 AM EDT 10 Units lactated Ringer's infusion Intravenous, Continuous PRN, Starting on Tue12/17/24 at 0731, Until Tue12/17/24 at 1550, Routine New Bag 12/17/2024 7:31 AM EDT lidocaine PF (Xylocaine) 2 % injection Intravenous, As needed, Starting on Tue12/17/24 at 0752, Until Tue12/17/24 at 1550, Routine, Anesthesia Intraprocedure Given 12/17/2024 7:52 AM EDT 80 mg magnesium sulfate 4 g in sodium chloride 0.9 % 100 mL IVPB Intravenous, Continuous PRN, Starting on Tue12/17/24 at 1325, Until Tue12/17/24 at 1550, Routine New Bag 12/17/2024 1:25 PM EDT 4 g midazolam (Versed) injection Intravenous, As needed, Starting on Tue12/17/24 at 0747, Until Tue12/17/24 at 1550, Routine, Anesthesia Intraprocedure Given 12/17/2024 3:35 PM EDT 2 mg Given 12/17/2024 2:48 PM EDT 2 mg Given 12/17/2024 7:50 AM EDT 2 mg nitroglycerin (Tridil) 50 mg in 250 mL D5W (200 mcg/mL) infusion Intravenous, Continuous PRN, Starting on Tue12/17/24 at 1010, Until Tue12/17/24 at 1550, STAT, Anesthesia Intraprocedure Rate/Dose Change 12/17/2024 10:12 AM EDT 0.2 mcg/kg/min 4.194 mL/hr New Bag 12/17/2024 10:10 AM EDT 0.1 mcg/kg/min 2.097 mL /hr norepinephrine (Levophed) injection Intravenous, As needed, Starting on Tue12/17/24 at 0801, Until Tue12/17/24 at 1550, Routine, Anesthesia Intraprocedure Given 12/17/2024 10:38 AM EDT 8 mcg Given 12/17/2024 8:18 AM EDT 8 mcg Given 12/17/2024 8:12 AM EDT 8 mcg norepinephrine infusion 8 mg in 250 mL NS (0.032 mg/mL) (compounding pharmacy premix) Intravenous, Continuous PRN, Starting on Tue12/17/24 at 0824, Until Tue12/17/24 at 1550, STAT, Anesthesia Intraprocedure Rate/Dose Change 12/17/2024 8:34 AM EDT 0.02 mcg/kg/min 2.621 mL/hr New Bag 12/17/2024 8:24 AM EDT 0.05 mcg/kg/min 6.553 mL /hr phenylephrine (Vazculep) injection Intravenous, As needed, Starting on Tue12/17/24 at 1100, Until Tue12/17/24 at 1550, Routine, Anesthesia Intraprocedure Given 12/17/2024 1:22 PM EDT 1,000 mcg Given 12/17/2024 1:19 PM EDT 500 mcg Given 12/17/2024 1:07 PM EDT 500 mcg Prime for CPB (OSM) Perfusion, Continuous PRN, Starting on Tue12/17/24 at 0857, Until Tue12/17/24 at 1550, Routine New Bag 12/17/2024 8:57 AM EDT 800 mL propofol (Diprivan) injection Intravenous, As needed, Starting on Tue12/17/24 at 0753, Until Tue12/17/24 at 1550, Routine, Anesthesia Intraprocedure Given 12/17/2024 9:18 AM EDT 40 mg Given 12/17/2024 8:54 AM EDT 50 mg Given 12/17/2024 7:52 AM EDT 80 mg protamine injection Intravenous, As needed, Starting on Tue12/17/24 at 1338, Until Tue12/17/24 at 1550, Routine, Anesthesia Intraprocedure Given 12/17/2024 1:54 PM EDT 50 mg Given 12/17/2024 1:41 PM EDT 190 mg Given 12/17/2024 1:38 PM EDT 40 mg rocuronium (ZeMuron) injection Intravenous, As needed, Starting on Tue12/17/24 at 0753, Until Tue12/17/24 at 1550, Routine, Anesthesia Intraprocedure Given 12/17/2024 2:32 PM EDT 10 mg Given 12/17/2024 10:15 AM EDT 30 mg Given 12/17/2024 7:53 AM EDT 100 mg sodium bicarbonate 8.4 % injection Intravenous, As needed, Starting on Tue12/17/24 at 1108, Until Tue12/17/24 at 1550, Routine, Anesthesia Intraprocedure Given 12/17/2024 1:30 PM EDT 50 mEq Given 12/17/2024 12:25 PM EDT 50 mEq Given 12/17/2024 11:38 AM EDT 50 mEq sodium chloride 0.9 % infusion Intravenous, Continuous PRN, Starting on Tue12/17/24 at 0820, Until Tue12/17/24 at 1550, Routine New Bag 12/17/2024 8:20 AM EDT 50 mL/hr sodium chloride 0.9 % infusion Intravenous, Continuous PRN, Starting on Tue12/17/24 at 0839, Until Tue12/17/24 at 1550, Routine New Bag 12/17/2024 8:39 AM EDT tranexamic acid (Cyklokapron) 1,000 mg in sodium chloride 0.9 % 100 mL (10 mg/mL) IVPB Intravenous, Continuous PRN, Starting on Tue12/17/24 at 1059, Until Tue12/17/24 at 1550, Routine New Bag 12/17/2024 10:59 AM EDT 1 mg/kg/hr 6.99 mL/hr tranexamic acid (Cyklokapron) injection Intravenous, As needed, Starting on Tue12/17/24 at 1002, Until Tue12/17/24 at 1550, Routine, Anesthesia Intraprocedure Given 12/17/2024 10:02 AM EDT 1,000 mg Transfuse RBC Routine New Bag 12/17/2024 10:37 AM EDT Transfuse RBC Routine New Bag 12/17/2024 1:59 PM EDT documented in this encounter Additional Health Concerns Assessment Noted Time A fall risk assessment has been complete d for the patient 12/13/2024 11:24 AM EDT A Body Mass Index follow-up plan has been documented for the patient 12/21/2024 10:25 AM EDT documented as of this encounter Care Teams Bookmaker Map Relationship Specialty Start Date End Date Marge Woodard MD [address] [place] [id number] PCP - General 10/31/24 Shiela Vela APRN [address] [place] [address] Referring Physician 10/31/24 documented as of this encounter
--- OUTSIDE RECORDS SUMMARY | 2025-01-17 10:36 | XMS_ITS | Encounter Summary ---
Author Organization Healthcare Address [address] [place] [address] Care Team Providers Care Dairy Management Specialist Name Role Phone Marge Woodard MD Primary Care Provider [phone] Shiela Vela DOG BREEDER Unavailable [phone] Encounter Details Date Type Department Care Team (Latest Contact Info) Description 01/17/2025 10:36 AM EDT - 01/17/2025 11:59 PM EDT [facility] [address] [place] [id number] CAD in [place] artery Discharge Disposition: Home or Self Care Social [...] any time in the past 12 [facility], were you homeless or living in a usp (including now)? No 12/18/2024 Utilities Answer Date Recorded In the past 12 months has th e [employer], gas, oil, or water [employer] threatened to shut off services in your home? No 12/18/2024 Comments No Sex and Gender Information Value Date Recorded Sex Assigned at Not on file Legal Sex Female 1:50 PM EDT Gender Identity Not on file Sexual Orientation Not on file documented as of this encounter Medications at [...] tablet Take 1 tablet by mouth daily. furosemide (Lasix) 40 MG tablet Take 1 tablet by mouth daily. 30 tablet 1 12/31/2024 5 metFORMIN (Glucophage) 500 MG tablet Take 1 [...] crush, chew, or split. 30 tablet 12/22/2024 ondansetron (Zofran) 4 MG tablet Take 1 tablet by mouth daily as needed for nausea or vomiting. 20 tablet 1 12/24/2024 6 oxyCODONE (Roxicodone) 5 MG immediate release tablet Take 1 tablet by mouth every 6 hours as needed for severe pain. 30 tablet 12/24/2024 potassium chloride CR (Klor-Con M20) 20 MEQ ER tablet Take 1 tablet by mouth daily. Do not crush or chew. Take while taking Lasix 30 tablet 1 12/31/2024 5 pregabalin (Lyrica) 50 MG capsule Take 1 capsule by mouth 2 times a day. QUEtiapine (SEROquel) 200 MG tablet Take 1 tablet by mouth nightly. rOPINIRole (Requip) 5 MG tablet Take 1 tablet by mouth nightly. sacubitril-valsar carrion (Entresto) 24-26 MG tablet Take 1 tablet by mouth 2 times a day. Tiotropium [place] Monohydrate (SPIRIVA HANDIHALER IN) Inhale 1 puff nightly. zonisamide (Zonegran) 100 MG capsule Take 1 capsule by mouth 3 times a day. documented as of this encounter Plan of Treatment Not on file documented as of this encounter Procedures Procedure Name Priority Date/Time Associated Diagnosis Comments XR CHEST 2 VIEWS Routine 01/17/2025 10:4 3 AM EDT CAD in [place] artery documented in this encounter Results * XR Chest 2 Views (01/17/2025 10:43 AM EDT) Anatomical Region Laterality Modality Chest Digital Radiogra phy Impressions 01/17/2025 11:32 AM EDT Stable right-sided pleural effusion. CRITICAL RESULT: No. COMMUNICATION: Per this written report. By electronically signing this report, I, the attending physician, attest that I have personally reviewed the images/data for the above examination(s) and agree with the final edited report. Drafted by Rafaela Loyola MD on 01/17/2025 11:15 AM Final report signed by Mike Sheffield MD on 01/17/2025 11:32 AM Narrative 01/17/2025 11:32 AM EDT CLINICAL INDICATION: cad TECHNIQUE: XR CHEST 2 VIEWS COMPARISON: Chest radiograph December 21, 2024 FINDINGS: Left chest wall port is in stable position. Cardiac silhouette and mediastinal contours are stable. Similar-appearing right-sided pleural effusion with underlying atelectasis. No consolidation. No pneumothorax. Procedure Note Mike Sheffield MD - 01/17/2025 CLINICAL INDICATION: cad TECHNIQUE: XR CHEST 2 VIEWS COMPARISON: Chest radiograph December 21, 2024 FINDINGS: Left chest wall port is in stable position. Cardiac silhouette andmediastinal contours are stable. Similar-appearing right-sided pleuraleffusion with underlying atelectasis. No consolidation. No pneumothorax. IMPRESSION: Stable right-sided pleural effusion. CRITICAL RESULT: No. COMMUNICATION: Per this written report. By electronically signing this report, I, the attending physician, attestthat I have personally reviewed the images/data for the aboveexamination(s) and agree with the final edited report. Drafted by Rafaela Loyola MD on 01/17/2025 11:15 AM Final report signed by Mike Sheffield MD on 01/17/2025 11:32 AM Boris Al MD IMG XR PROCEDURES Final Resu lt documented in this encounter Visit Diagnoses Diagnosis CAD in [place] artery documented in this encounter Additional Health Concerns Assessment Noted Time A fall risk assessment has been complete d for the patient 01/17/2025 12:21 PM EDT A Body Mass Index follow-up plan has been documented for the patient 01/30/2025 7:53 AM EDT documented as of this encounter Care Teams Dairy Management Specialist Relationship Specialty Start Date End Date Marge Woodard MD [address] [place] [id number] PCP - General 10/31/24 Shiela Vela APRN [address] [place] [address] Referring Physician 10/31/24 documented as of this encounter
--- OUTSIDE RECORDS SUMMARY | 2025-01-17 12:00 | XMS_ITS | Encounter Summary ---
Author Organization Healthcare Address [address] [place] [address] Care Team Providers Care Rv Service Technician Name Role Phone Marge Woodard MD Primary Care Provider [phone] Shiela Vela POWER SYSTEMS ENGINEER Unavailable [phone] Encounter Details Date Type Department Care Team (Late st Contact Info) Description 01/17/2025 12:00 PM EDT Office Visit [facility] [address], [address] [place] [address] Boris Al MD [address] [place] [address] CAD in chehalis artery (Primary Dx) Social History Tobacco Use Types [...] were you homeless or living in a fci (including now)? No 12/18/2024 Utilities Answer Date [...] Sign Reading Time Taken Comments Blood Pressure 118/76 01/17/2025 12:18 PM EDT Pulse 102 01/17/2025 12:18 PM EDT Temperature - - Respiratory Rate - - Oxygen Saturation 98% 01/17/2025 12:18 PM EDT Inhaled Oxygen Concentration - - Weight 67.7 kg (149 lb 4 oz) 01/17/2025 12:18 PM EDT Height - - Body Mass Index 26.45 12/18/2024 12:57 PM EDT documented in this encounter Miscellaneous Notes * Progress Notes - Migel Salazar MD - 01/17/2025 12:00 PM EDT Reason for visit / Chief Complaint: 1mth post op History of present illness: Beverley Antoine is a 59 y.o. female who returns for 1mth postop visit following 3v CABG on 12/17/24. Postoperative course was unremarkable and was discharged to home on POD4. Reports marked improvement in exercise capacity and decrease in fatigue since surgery. Does have some right anterolateral chest discomfort. Takes tylenol with some relief but reports exacerbation of pain with movement. Has chest CT scheduled for Tuesday for surveillance of her lung cancer. Active Problems: Patient Active Problem List Diagnosis Date Noted Anemia 12/19/2024 Hypertension 12/18/2024 CAD in chehalis artery 12/17/2024 S/P CABG x 3 12/17/2024 Acute blood loss anemia 12/17/2024 Cancer ([facility]) 11/08/2024 CAD (coronary artery disease) 11/07/2024 Carpal tunnel syndrome 11/07/2024 HLD (hyperlipidemia) 11/07/2024 Vitamin D deficiency 11/07/2024 Bipolar affective disorder ([facility]) 11/07/2024 Diabetes ([facility]) 11/07/2024 Seizures ([facility]) 11/07/2024 Insomnia 11/07/2024 Lung cancer ([facility]) 11/07/2024 Anxiety 11/07/2024 Tobacco dependence 11/07/2024 Chronic obstructive pulmonary disease with (acute) exacerbation ([facility]) 03/07/2023 Chronic systolic HF (heart failure) ([facility]) 02/16/2022 Depression 08/11/2017 Medical History: Past Medical History Pertinent [...] Start Date End Date Taking? Authorizing Provider acetaminophen (Tylenol) 325 MG tablet Take 3 tablets by mouth every 8 hours for 30 days, THEN 2 tablets every 4 hours as needed for pain. 12/21/24 02/19/25 Yes Andrew Paulson PA albuterol 108 (90 Base) MCG/ACT inhaler Inhale 2 puffs every 4 hours as needed for shortness of breath. Yes Provider, Historical aspirin 81 MG chewable tablet Chew 1 tablet daily. 12/22/24 Yes Andrew Paulson PA atorvastatin (Lipitor) 80 MG tablet Take 1 tablet by mouth nightly. 12/21/24 Yes Andrew Paulson PA cholecalciferol (Vitamin D3) 25 MCG (1000 UT) tablet Take 10 tablets by mouth daily. Yes Provider, Historical cyanocobalamin (Vitamin B-12) 500 MCG tablet Take 2 tablets by mouth daily. Yes Provider, Historical docusate sodium 100 MG capsule Take 100 mg by mouth 2 times a day. 12/21/24 Yes Andrew Paulson PA folic acid (Folvite) 1 MG tablet Take 1 tablet by mouth daily. Yes Provider, Historical furosemide (Lasix) 40 MG tablet Take 1 tablet by mouth daily. Patient taking differently: Take 1 tablet by mouth 2 times a day. 12/31/24 03/01/25 Yes Francisco Cates PA metFORMIN (Glucophage) 500 MG tablet Take 1 tablet by mouth 2 times a day with meals. Yes Provider,Historical methocarbamol (Robaxin) 500 MG tablet Take 2 tablets by mouth 4 times a day for 10 days. 01/02/25 01/17/25 Yes Lubna Mena APRN Multiple Vitamin (multivitamin) tablet Take 1 tablet by mouth daily. Yes Provider, Historical ondansetron (Zofran) 4 MG tablet Take 1 tablet by mouth daily as needed for nausea or vomiting. 12/24/24 12/24/25 Yes Francisco Cates PA potassium chloride CR (Klor-Con M20) 20 MEQ ER tablet Take 1 tablet by mouth daily. Do not crush orchew. Take while taking Lasix 12/31/24 03/01/25 Yes Francisco Cates PA pregabalin (Lyrica) 50 MG capsule Take 1 capsule by mouth 2 times a day. Yes Provider, Historical QUEtiapine (SEROquel) 200 MG tablet Take 1 tablet by mouth nightly. Yes Provider, Historical rOPINIRole (Requip) 5 MG tablet Take 1 tablet by mouth nightly. Yes Provider, Historical Tiotropium [place] Monohydrate (SPIRIVA HANDIHALER IN) Inhale 1 puff nightly. Yes Provider, Historical zonisamide (Zonegran) 100 MG capsule Take 1 capsule by mouth 3 times a day. Yes Provider, Historical methocarbamol (Robaxin) 500 MG tablet Take 1 tablet by mouth 4 times a day. 12/21/24 Andrew Paulson PA metoprolol tartrate (Lopressor) 25 MG tablet Take 1 tablet by mouth 2 times a day. Patient not taking: Reported on 01/17/2025 12/21/24 Andrew Paulson PA naloxone (Narcan) 4 mg/0.1 mL nasal spray 1. Give 1 spray in nostril for no/slow breathing or cannot wake after opioid use 2. Call 911 3. Repeat in other nostril if symptoms continue Patient not takin. Give 1 spray in nostril for no/slow breathing or cannot wake after opioid use 2. Call 911 3. Repeat in other nostril if symptoms continue Reported on 01/17/2025 12/21/24 Andrew Paulson PA NIFEdipine XL (Adalat CC) 30 MG 24 hr tablet Take 1 tablet by mouth daily. Do not crush, chew, or split. Patient not taking: Reported on 01/17/2025 12/22/24 01/21/25 Andrew Paulson PA oxyCODONE (Roxicodone) 5 MG immediate release tablet Take 1 tablet by mouth every 6 hours as neededfor severe pain. Patient not taking: Reported on 01/17/2025 12/24/24 Chadwick Pedersen MD [Paused] sacubitril-valsartan (Entresto) 24-26 MG tablet Take 1 tablet by mouth 2 times a day. Patient not taking: Reported on 01/17/2025 Wait to take this until your doctor or other care provider tells you to start again. Provider, Historical Physical exam: Visit Vitals BP 118/76 Pulse 102 SpO2 98% Constitutional: well developed, well nourished, and in no acute distress Respiratory: Normal expansion. Clear to auscultation. No rales, rhonchi, or wheezing. Cardiac: Heart sounds are normal. Regular rate and rhythm without murmur, gallop or rub. Abdomen: Soft, non-tender, normal bowel sounds; no bruits, organomegaly or masses. Musculoskeletal: normal strength, tone, and muscle mass, no deformities, right chest wall without obvious step off, sternum stable to provocation Psychiatric: oriented to time, place and person, mood and affect are within normal limits Neurologic: normal sensation and reflexes and motor intact Skin: Ivalee, warm, well perfused Labs Imaging: Narrative & Impression CLINICAL INDICATION: cad TECHNIQUE: XR CHEST 2 VIEWS COMPARISON: Chest radiograph December 21, 2024 FINDINGS: Left chest wall port is in stable position. Cardiac silhouette and mediastinal contours are stable.Similar-appearing right-sided pleural effusion with underlying atelectasis. No consolidation. No pneumothorax. IMPRESSION: Stable right-sided pleural effusion. Impression: 59 year old female doing well 1mth post CABG. Has chest wall pain. Will plan to review images from her upcoming CT. Has followup in place with cardiology and cardiac rehab. Plan: -patient to forward CT results to office, will review -may return to clinic as needed [1] Past Medical History: Diagnosis Date Cancer (CMS/HCC) Lung CHF (congestive heart failure) ([facility]) COPD (chronic obstructive pulmonary disease) ([facility]) Coronary artery disease Diabetes mellitus ([facility]) Hyperlipidemia Myocardial infarction ([facility]) Pneumonia Stroke ([facility]) [2] Past Surgical History: Procedure Laterality [...] KNEE ARTHROPLASTY Bilateral [3] Allergies Allergen Reactions Wasp Venom Protein Shortness of breath and Wheezing Short of breath,wheezing Short of breath,wheezing venoms of the honeybee and the common yellow jacket Short of breath,wheezing venoms of the honeybee and the common yellow jacket Bupropion Other - please document in the comment field seizure Empagliflozin Dizziness Dizziness, falls Dizziness, falls Niacin Unknown - Patient states they do not know rxn details Poison Arianna Extract Other - please document in the comment field and Unknown - Patient states they do not know rxn details State allergic to poison arianna weed-causes blisters,oozing. Risperidone Unknown - Patient states they do not know rxn details Increased depression Sulfa Drugs Unknown - Patient states they do not know rxn details Venlafaxine Other - please document in the comment field seizure Cosigned by Boris Al MD at 01/30/2025 7:53 AM EDT Associated attestation - Boris Al MD - 01/30/2025 7:53 AM EDT I saw and evaluated the patient with the resident/fellow. I discussed the case with the resident/fellow and agree with the findings and plan as documented. documented in this encounter Plan of Treatment Scheduled Orders Name Type Priority Associated Diagnoses Orde r Schedule ECG Adult ECG Routine CAD in chehalis artery Expected: 01/17/2025, Expires: 07/18/2026 CBC W/O Differential Lab Routine CAD in chehalis artery Expected: 01/14/2025 (Approximate), Expires: 07/17/2026 Basic Metabolic Panel, Plasma Lab Routine CAD in che[place] artery Expected: 01/14/2025 (Approximate), Expires: 07/17/2026 documented as of this encounter Results * XR Chest 2 [...] this encounter Visit Diagnoses Diagnosis CAD in chehalis artery- Primary CAD in chehalis artery documented in this encounter Additional Health Concerns Assessment Noted Time A fall risk assessment has been complete d for the patient 01/17/2025 12:21 PM EDT A Body Mass Index follow-up plan has been documented for the patient 01/30/2025 7:53 AM EDT documented as of this encounter Care Teams Rv Service Technician Relationship Specialty Start Date End Date Marge Woodard MD [address] [place], [place] [id number] PCP - General 10/31/24 Shiela Vela APRN [facility] [place] [address] Referring Physician 10/31/24 documented as of this encounter
--- NOTE | 2025-02-11 09:30 | CA_ITS ---
APPROVED REPORT EXAM: Comprehensive 2D, Doppler, and color-flow Echocardiogram Helminthologist: Cassidy Reagan RT(R) Ht: 5 ft 3 in Wt: 154lbs BSA: 1.73 BP: 120/70 mmHg Indications: CABG x 3 10/2024, HFrEF 2D Dimensions LA Volume 21.50 mL LA Volume Index 12.43 mL/m2 (M/F) 16-34 EF AP4 37.30 % GL Strain -13.9 % M-Mode Dimensions RVDd 1.99 cm (0.9-2.6) LVDd 4.62 cm (3.5-5.7) LVDs 3.48 cm (3.5-5.7) IVSd 0.98 cm (0.6-1.1) PWd 0.89 cm (0.6-1.1) EF (Teich) 48.90% FS 24.70% EDV (Teich) 98.30 mL ESV (Teich) 50.20 mL LV Diastology E Decel Time 150 (160-240 msec) E/A Ratio 0.7 Aortic Valve MARYJANE Index 1.07 cm2/m2 AoV Peak Timothy. 139.0 (50-130 cm/s) AI PHT 528.00 ms AO Peak GR. 7.70 mmHg AO Mean GR. 3.90 (<5 mmHg) AO VTI 26.6 (18-25 cm) MARYJANE (VTI) 1.90 (2.5-4.5 cm2) Mitral Valve MV E Max Timothy. 73.0 (40-130 cm/s) MV A Velocity 101.0 (40-130 cm/s) E/A Ratio 0.73 MV PHT 44.0 ms Tricuspid Valve TR P. Velocity 588.00 cm/s Left Ventricle The left ventricle is normal size. Left ventricular systolic function is mildly reduced. There is increased left ventricular wall thickness. There is mild global hypokinesis present. Grade 1 diastolic dysfunction is present. LVEF is 45%. Right Ventricle The right ventricle is normal size. The right ventricular systolic function is normal. Atria The left atrium size is normal. The right atrium size is normal. There is no color Doppler evidence of interatrial shunt. Aortic Valve The aortic valve is mildly thickened. There is no hemodynamically significant aortic valvular stenosis. Moderate aortic regurgitation is present. Mitral Valve The mitral valve is normal in structure. No evidence of mitral valve stenosis. Mild mitral regurgitation is present. Tricuspid Valve The tricuspid valve leaflets are thin and pliable. Trace tricuspid regurgitation. There is insufficient TR jet to estimate RVSP. Pulmonic Valve The pulmonary valve is grossly normal in structure. Trace pulmonic valve regurgitation is present. Great Vessels The aortic root is normal in size. IVC is normal in size and collapses >50% with inspiration. Pericardium There is no pericardial effusion. Other Information Study Quality: Technically Difficult Conclusion Mildly reduced LV systolic function (LVEF 45%). Moderate AI. Mild MR. Compared to prior study from 10/29/2024, there are no significant changes. Electronically signed by : Delisa Juarez MD 02/11/2025 22:03:07
--- OUTSIDE RECORDS SUMMARY | 2025-02-11 09:31 | XMS_ITS | Encounter Summary ---
Author Organization [facility] Address [address] [place] [address] Care Team Providers Care Circulator Name Role Phone Marge Woodard MD Primary Care Provider Shady Knapp MD Unavailable Loyd Taylor MD Unavailable Lavonne Handley NP Unavailable Tashi Perez DO Unavailable [phone] Encounter Details Date Type Department Care Team (Late st Contact Info) Description 2023 Telephone [facility] [address] [address] Brittany Medeiros, RN [address] [place] [address] Social History Tobacco Use Types Packs/Day Years Used Date Smoking Tobacco: Every Day Cigarettes 0.5 42.7 Started: 1979; Last attempted to quit: 02/04/2022 Smokeless Tobacco: Never Comments:4 or 5 cigarettes a day on average. Alcohol Use Standard Drinks/Week Comments Not Currently 0 (1 standard drink = 0.6 oz pur e alcohol) Comments Unknown Sex and Gender Information Value Date Recorded Sex Assigned at Not on file Legal Sex Female 5:53 PM EDT Gender Identity Not on file Sexual Orientation Not on file documented as of this encounter Plan of Treatment Upcoming Encounters Date Type Department Care Team (Late st Contact Info) Description 03/22/2025 8:40 AM EDT Appointment [facility] Physicians - Heart & Vascular, Jewel Garcia [address] [facility] [address] [place] [id number] Tashi Perez DO [address] [place] [id number] documented as of this encounter Visit Diagnoses Not on filedocumented in this encounter Care Teams Circulator Relationship Specialty Start Date End Date Marge Woodard MD [address] [place], [place] [id number] PCP - General Family Medicine 02/16/22 Shady Knapp MD [address] [facility] [address] [place] [address] Internal Medicine 02/17/22 Loyd Taylor MD [address] [place] [address] [place] [address] Interventional Cardiology 02/23/22 Lavonne Handley NP [address] [place] [address] [place] [address] Nurse Practitioner Nurse Practitioner 03/02/22 Tashi Perez DO [address] [place] [id number] Advanced Heart Failure/Transplant 07/01/22 documented as of this encounter
--- OUTSIDE RECORDS SUMMARY | 2025-02-11 09:31 | XMS_ITS | Encounter Summary ---
Author Organization [facility] Address [address] [place] [address] Care Team Providers Care Knitted Cloth Examiner Name Role Phone Marge Woodard MD Primary Care Provider [phone] Shady Knapp MD Unavailable Loyd Taylor MD Unavailable Lavonne Handley NP Unavailable Tashi Perez DO Unavailable Encounter Details Date Type Department Care Team (Late st Contact Info) Description 03/15/2023 Orders Only Laboratory [address] [facility] [address] [place] [address] Tashi Perez DO [address] [facility] [place] [address] HFrEF (heart failure with reduced ejection fraction) (Primary Dx); Ischemic mitral valve insufficiency; Chronic systolic heart failure Social History Tobacco Use Types Packs/Day Years [...] Description 03/22/2025 8:40 AM EDT Appointment [facility] Physicians - Heart & Vascular, Jewel Jose [address] [facility] [address] [place] [id number] Tashi Perez DO [address] [facility] [place] [id number] documented as of this encounter Visit Diagnoses Diagnosis HFrEF (heart failure with reduced ejection fraction) (CMS/HCC)- Primary Ischemic mitral valve insufficiency Mitral valve disorders Chronic systolic heart failure (CMS/HCC) Chronic systolic heart failure documented in this encounter Care Teams Knitted Cloth Examiner Relationship Specialty Start Date End Date Marge Woodard MD [address] [place], [place] [id number] PCP - General Family Medicine 02/16/22 [place] [address] [place], [place] [address]. Room [address] [place] [address] Internal Medicine 02/17/22 Loyd Taylor MD [address] [place] [address] [place] [address] Interventional Cardiology 02/23/22 Lavonne Handley NP [address] [place] [address] [place] [address] Nurse Practitioner Nurse Practitioner 03/02/22 Tashi Perez DO [address] [facility] [place] [address] Advanced Heart Failure/Transplant 07/01/22 documented as of this encounter
--- OUTSIDE RECORDS SUMMARY | 2025-02-11 09:31 | XMS_ITS | Encounter Summary ---
Author Organization [facility] Address [address] [place] [address] Care Team Providers Care Wealth Management Manager Name Role Phone Marge Woodard MD Primary Care Provider Shady Knapp MD Unavailable Loyd Taylor MD Unavailable Lavonne Handley NP Unavailable Tashi Perez DO Unavailable [phone] Encounter Details Date Type Department Care Team (Late st Contact Info) Description 03/23/2023 Cardiology Conference [facility] [address] [place] [address] Medical Office Building [address] [place] [address] Center, Lanie Winters RN Social History Tobacco Use Types Packs/Day Years [...] Description 03/22/2025 8:40 AM EDT Appointment [facility] Physicians - Heart & Vascular, Jewel Garcia [address] [facility] [address] [place] [phone] Tashi Perez DO [address] [place] [address] documented as of this encounter Visit Diagnoses Not on filedocumented in this encounter Care Teams Wealth Management Manager Relationship Specialty Start Date End Date Marge Woodard MD [address] [place] [address] PCP - General Family Medicine 02/16/22 [place] [address] [place], [place] [address]. Room [address] [place] [address] Internal Medicine 02/17/22 Loyd Taylor MD [address] [place] [address] [place] [address] Interventional Cardiology 02/23/22 Lavonne Handley NP [address] [place] [address] [place] [address] Nurse Practitioner Nurse Practitioner 03/02/22 Tashi Perez DO [address] [place] [id number] Advanced Heart Failure/Transplant 07/01/22 documented as of this encounter
--- OUTSIDE RECORDS SUMMARY | 2025-02-11 09:31 | XMS_ITS | Encounter Summary ---
Author Organization [facility] Address [address] [place] [address] Care Team Providers Care Caddy Packer Name Role Phone Marge Woodard MD Primary Care Provider Shady Knapp MD Unavailable Loyd Taylor MD Unavailable Lavonne Handley NP Unavailable Tashi Perez DO Unavailable [phone] Reason for Visit * Reason Onset Date Comments Pre-visit Planning 04/12/2022 Encounter Details Date Type Department Care Team (Late st Contact Info) Description 04/12/2022 Clinical Update [facility] Physicians - Heart & Vascular, [address] [place] [address] Tiana Pritchard MA Pre-visit Planning Social History Tobacco Use Types Packs/Day Years Used Date Smoking Tobacco: Former Cigarettes 0.5 42.7 1 980 - 02/04/2022 Smokeless Tobacco: Never Alcohol Use Standard Drinks/Week Comments Not Currently [...] Description 03/22/2025 8:40 AM EDT Appointment [facility] - Heart & Vascular, Jewel Garcia [address] [facility] [address] [place] [id number] Tashi Perez DO [address] [place] [id number] documented as of this encounter Visit Diagnoses Not on filedocumented in this encounter Care Teams Caddy Packer Relationship Specialty Start Date End Date Marge Woodard MD [address] [place], [place] [id number] PCP - General Family Medicine 02/16/22 [place] [address] [place], [place] [address]. Room [address] [place] [address] Internal Medicine 02/17/22 Loyd Taylor MD [address] [place] [address] [place] [address] Interventional Cardiology 02/23/22 Lavonne Hanldey NP [address] [place] [address] [place] [address] Nurse Practitioner Nurse Practitioner 03/02/22 Tashi Perez DO [address] [place] [id number] Advanced Heart Failure/Transplant 07/01/22 documented as of this encounter
--- OUTSIDE RECORDS SUMMARY | 2025-02-11 09:31 | XMS_ITS | Encounter Summary ---
Author Organization [facility] Address [address] [place] [address] Care Team Providers Care Skein Straightener Name Role Phone Marge Woodard MD Primary Care Provider [phone] Shiela Vela SOFTWARE DEVELOPMENT MANAGER Unavailable [phone] Encounter Details Date Type Department Care Team (Latest Contact Info) Description 12/17/2024 Travel Social History Tobacco Use Types Packs/Day Years [...] any time in the past 12 m [facility], were you homeless or living in a residential (including now)? No 12/18/2024 Utilities Answer Date [...] Date of Assessment Author No Risk Indicated 12/17/2024 9:00 PM EDT Matt Mane RN * Question Answer Date of Assessment Author 1. Wish to be (Past 1 Month) No 025 9:00 PM EDT Matt Mane RN 2. Non-Specific Active Suici jorge Thoughts (Past 1 Month) No 12/17/2024 9:00 PM EDT Matt Mane RN 6. Suicidal Behavior (Lifetime) No 5 9:00 PM EDT Matt Mane RN documented as of this encounter Plan of Treatment Not on file documented as of this encounter Visit Diagnoses Not on filedocumented in this encounter Additional Health Concerns Assessment Noted Time A fall risk assessment has been complete d for the patient 12/13/2024 11:24 AM EDT A Body Mass Index follow-up plan has been documented for the patient 12/21/2024 10:25 AM EDT documented as of this encounter Care Teams Skein Straightener Relationship Specialty Start Date End Date Marge Woodard MD [address] [place] [address] PCP - General 10/31/24 Shiela Vela APRN [address] [place] [address] Referring Physician 10/31/24 documented as of this encounter
--- OUTSIDE RECORDS SUMMARY | 2025-02-11 09:31 | XMS_ITS ---
Author Organization [facility] Address [address] [place] [id number] Care Team Providers Care Teaching Specialists Name Role Phone Marge Woodard MD Primary Care Provider Shady Knapp MD Unavailable [phone] Loyd Taylor MD Unavailable Lavonne Handley NP Unavailable Tashi Perez DO Unavailable [phone] Active Problems Problem Noted Date Diagnosed Date Severe mitral valve regurgitation 10/03/2023 Severe mitral regurgitation 08/03/2023 Malignant neoplasm of right lung (CMS HCC) [place] 03/15/2023 Chronic obstructive pulmonar y disease with (acute) exacerbation 03/07/2023 Coronary artery disease invo lving [place] coronary artery of [place] heart without angina pectoris 07/01/2022 Assessment & Plan (09/28/2022 9:20 AM EDT): Images from the original note were not included. -->aspirin, statin Assessment & Plan (07/01/2022 8:22 AM EST): Images from the original note were not included. -->aspirin, statin Nonrheumatic mitral valve regurgitation 07/01/19 23 Assessment & Plan (09/28/2022 9:19 AM EDT): -Severe MR by TTE January 2022. More ischemic than functional MR. She has probable RCA territory infarct and [employer]IST-RCA. There is tethering of the posterior MV leaflet -->we are pursuing a strategy of GDMT followed by repeating TTE to assess degree of MR -->consider referral for Mitral clip vs surgery. Candidacy for intervention will depend on degree of MR, cancer status and severity of underlying lung disease Assessment & Plan (07/01/2022 8:49 AM EST): -Severe MR by TTE January 2022. More ischemic than functional MR. She has probable RCA territory infarct and [employer]MENT [employer]IST-RCA. There is tethering of the posterior MV leaflet -->we are pursuing a strategy of GDMT followed by repeating TTE to assess degree of MR -->consider referral for Mitral clip vs surgery. Candidacy for intervention will depend on degree of MR, cancer status and severity of underlying lung disease Ischemic cardiomyopathy 07/01/2022 Assessment & Plan (09/28/2022 9:19 AM EDT): Stage C, NYHA III (2/2 to lungs and cardiac limitation) TTE LVEF 40-45% Jan 2022 CAD = [employer]MENT [employer]IST RCA Jan 2022 GDMT = BB, ARNi, MRA. Intolerance to SGLT2i (dizziness and falls) Vol status = euvolemic ECG = NSR with LBBB < 150 ms -->BB, ARNi, MRA Assessment & Plan (07/01/2022 8:49 AM EST): Stage C, NYHA III (2/2 to lungs and cardiac limitation) TTE LVEF 40-45% Jan 2022 CAD = [employer]IST RCA Jan 2022 GDMT = BB, ARNi, MRA Vol status = euvolemic ECG = NSR with LBBB < 150 ms -->BB, ARNi, MRA -->add SGLT2i today. Check BMP today Hypoxia 02/17/2022 Chronic systolic HF (heart failure) 02/16/2022 Overview (02/19/2022): Added automatically from request for surgery [id number] Consolidation of right lower lobe of lung 2020 Anxiety 08/11/2017 CKD (chronic kidney disease) 08/11/2017 Bipolar affective disorder 08/11/2017 Diabetes mellitus 08/11/2017 Hyperlipidemia 08/11/2017 S/P total knee replacement, left 08/11/2017 Tobacco abuse 08/11/2017 Seizures 11/27/2012 Overview (02/17/2022): ICD-10 Transition Current Treatment and Therapy Plans No current plan information found. Past Treatment and Therapy Plans No past plan information found. Lifetime Dose Tracking * Chemical Lifetime Dose Automatic Entry Manual Entr y Air Kerma 967 mGy/cm2 0 mGy/cm2 967 mGy/cm2 Cine Time 1,477 Frames 0 Frames 1,477 Frames Resolved Problems Problem Noted Date Diagnosed Date Resolved Date Acute respiratory failure with hypoxia 02/17/2022 04/16/2022
--- OUTSIDE RECORDS SUMMARY | 2025-02-11 09:31 | XMS_ITS | Clinical Summary ---
Author Organization [facility] Address 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 Name Role Phone Marge Woodard MD Primary Care Provider [phone] Shiela Vela TRAFFIC OBSERVER Unavailable Allergies Active Allergy Reactions Criticality Noted Date Comments Bupropion Other - please document in the comment field Low 11/07/2024 seizure Empagliflozin Dizziness Low 09/28/2022 Dizziness, falls Dizziness, falls Niacin Unknown - Patient states they do not know rxn details Low 11/07/2024 Poison Austen Extract Other - please document in the comment field,Unknown - Patient states they do not know rxn details Low 03/19/2010 State allergic to poison austen weed-causes blisters,oozing. Risperidone Unknown - Patient states they do not know rxn details Low 11/07/2024 Increased depression Sulfa Drugs Unknown - Patient states they do not know rxn details Low 11/07/2024 Venlafaxine Other - please document in the comment field Low 11/07/2024 seizure Wasp Venom Protein Shortness of breath,Wheezing High 03/19/2010 Short of breath,wheezing Short of breath,wheezing venoms of the honeybee and the common yellow jacket Short of breath,wheezing venoms of the honeybee and the common yellow jacket Medications folic acid (Folvite) 1 MG tablet Take 1 tablet by mouth daily. Active metFORMIN (Glucophage) 500 MG tablet Take 1 tablet by mouth 2 times a day with meals. Active pregabalin (Lyrica) 50 MG capsule Take 1 capsule by mouth 2 times a day. Active QUEtiapine (SEROquel) 200 MG tablet Take 1 tablet by mouth nightly. Active rOPINIRole (Requip) 5 MG tablet Take 1 tablet by mouth nightly. Active sacubitril-valsa rtan (Entresto) 24-26 MG tablet Take 1 tablet by mouth 2 times a day. Active Tiotropium [place] Monohydrate (SPIRIVA HANDIHALER IN) Inhale 1 puff nightly. Active zonisamide (Zonegran) 100 MG capsule Take 1 capsule by mouth 3 times a day. Active cholecalciferol (Vitamin D3) 25 MCG (1000 UT) tablet Take 10 tablets by mouth daily. Active Multiple Vitamin (multivitamin) tablet Take 1 tablet by mouth daily. Active cyanocobalamin (Vitamin B-12) 500 MCG tablet Take 2 tablets by mouth daily. Active albuterol 108 (90 Base) MCG/ACT inhaler Inhale 2 puffs every 4 hours as needed for shortness of breath. Active atorvastatin (Lipitor) 80 MG tablet Take 1 tablet by mouth nightly. 30 tablet 5 Active aspirin 81 MG chewable tablet Chew 1 tablet daily. 30 tablet 5 Active docusate sodium 100 MG capsule Take 100 mg by mouth 2 times a day. 20 capsule 5 Active methocarbamol (Robaxin) 500 MG tablet Take 1 tablet by mouth 4 times a day. 120 tablet 5 Active naloxone (Narcan) 4 mg/0.1 mL nasal spray 1. Give 1 spray in nostril for no/slow breathing or cannot wake after opioid use 2. Call 911 3. Repeat in other nostril if symptoms continue 1 each 5 Active Additional Information Patient not taking.Reported on 01/17/2025 metoprolol tartrate (Lopressor) 25 MG tablet Take 1 tablet by mouth 2 times a day. 60 tablet 5 Active Additional Information Patient not taking.Reported on 01/17/2025 NIFEdipine XL (Adalat CC) 30 MG 24 hr tablet Take 1 tablet by mouth daily. Do not crush, chew, or split. 30 tablet 5 Active Additional Information Patient not taking.Reported on 01/17/2025 acetaminophen (Tylenol) 325 MG tablet Take 3 tablets by mouth every 8 hours for 30 days, THEN 2 tablets every 4 hours as needed for pain. 268 tablet 5 02/20/20 25 Active ondansetron (Zofran) 4 MG tablet Take 1 tablet by mouth daily as needed for nausea or vomiting. 20 tablet 1 5 12/25/19 26 Active oxyCODONE (Roxicodone) 5 MG immediate release tablet Take 1 tablet by mouth every 6 hours as needed for severe pain. 30 tablet 5 Active Additional Information Patient not taking.Reported on 01/17/2025 furosemide (Lasix) 40 MG tablet Take 1 tablet by mouth daily. 30 tablet 1 5 03/01/20 25 Active Additional Information Patient taking differently:40 mg Oral2 times daily (0900 & 1500), Reported on 01/17/2025 potassium chloride CR (Klor-Con M20) 20 MEQ ER tablet Take 1 tablet by mouth daily. Do not crush or chew. Take while taking Lasix 30 tablet 1 5 03/01/20 25 Active methocarbamol (Robaxin) 500 MG tablet Take 2 tablets by mouth 4 times a day for 10 days. 80 tablet 5 Active furosemide (Lasix) 40 MG tablet Take 1 tablet by mouth daily. 5 tablet 5 01/19/20 26 Active Active Problems Problem Noted Date Diagnosed Date Anemia 12/19/2024 Hypertension 12/18/2024 Overview (12/18/2024): - started nifedipine Assessment & Plan (12/18/2024 2:37 PM EDT): - started nifedipine - goal SBP <140 CAD in [place] artery 12/17/2024 Assessment & Plan (12/18/2024 2:37 PM EDT): -Monitor per protocol. Assessment & Plan (12/17/2024 11:30 PM EDT): -Monitor per protocol. Assessment & Plan (12/23/2024 8:49 PM EDT): -Monitor per protocol. S/P CABG x 3 12/17/2024 Overview (12/17/2024): 12/17/24 - CABGx3 (PAREDES-LAD, RSV-OM, RSV-PDA) & LLE EVH with Dr. Al Assessment & Plan (12/18/2024 2:37 PM EDT): - CABGx3 (PAREDES-LAD, RSV-OM, RSV-PDA) & LLE EVH with Dr. Al - will continue inotropic support as needed and wean appropriately throughout postoperative course - volume resuscitation in immediate postoperative period as needed - resusme ASA, statin, BB as appropriate - increased metoprolol to 25mg BID Assessment & Plan (12/17/2024 11:30 PM EDT): - CABGx3 (PAREDES-LAD, RSV-OM, RSV-PDA) & LLE EVH with Dr. Al - will continue inotropic support as needed and wean appropriately throughout postoperative course - volume resuscitation in immediate postoperative period as needed - resusme ASA, statin, BB as appropriate Assessment & Plan (12/23/2024 8:49 PM EDT): - CABGx3 (PAREDES-LAD, RSV-OM, RSV-PDA) & LLE EVH with Dr. Al - will continue inotropic support as needed and wean appropriately throughout postoperative course - volume resuscitation in immediate postoperative period as needed - resusme ASA, statin, BB as appropriate Acute blood loss anemia 12/17/2024 Assessment & Plan (12/18/2024 2:37 PM EDT): -received 2u pRBCs intra-op - continue to monitor - transfuse as indicated Assessment & Plan (12/17/2024 11:30 PM EDT): -received 2u pRBCs intra-op - continue to monitor - transfuse as indicated Assessment & Plan (12/23/2024 8:49 PM EDT): -received 2u pRBCs intra-op - continue to monitor - transfuse as indicated Cancer 11/08/2024 Overview (11/08/2024): lung Assessment & Plan (12/18/2024 2:37 PM EDT): -Monitor per protocol. Assessment & Plan (12/17/2024 11:30 PM EDT): -Monitor per protocol. CAD (coronary artery disease) 11/07/2024 Assessment & Plan (12/18/2024 2:37 PM EDT): - See s/p CABG x3 Assessment & Plan (12/17/2024 11:30 PM EDT): - See s/p CABG x3 Assessment & Plan (12/23/2024 8:49 PM EDT): - See s/p CABG x3 Carpal tunnel syndrome 11/07/2024 HLD (hyperlipidemia) 11/07/2024 Assessment & Plan (12/18/2024 2:37 PM EDT): -restart statin as appropriate Assessment & Plan (12/17/2024 11:30 PM EDT): -restart statin as appropriate Assessment & Plan (12/23/2024 8:49 PM EDT): -restart statin as appropriate Vitamin D deficiency 11/07/2024 Bipolar affective disorder 11/07/2024 Assessment & Plan (12/18/2024 2:37 PM EDT): -Previously on meds - since been well controlled Assessment & Plan (12/17/2024 11:30 PM EDT): -Previously on meds - since been well controlled Assessment & Plan (12/23/2024 8:49 PM EDT): -Previously on meds - since been well controlled Diabetes 11/07/2024 Assessment & Plan (12/18/2024 2:37 PM EDT): -Pre-diabetes - last A1C 5.8 - resume meds when appropriate - continue to monitor BG Assessment & Plan (12/17/2024 11:30 PM EDT): -Pre-diabetes - last A1C 5.8 - resume meds when appropriate - continue to monitor BG Assessment & Plan (12/23/2024 8:49 PM EDT): -Pre-diabetes - last A1C 5.8 - resume meds when appropriate - continue to monitor BG Seizures 11/07/2024 Assessment & Plan (12/18/2024 2:37 PM EDT): -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 - well controlled with Zonegran - restart when appropriate Assessment & Plan (12/17/2024 11:30 PM EDT): -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 - well controlled with Zonegran - restart when appropriate Assessment & Plan (12/23/2024 8:49 PM EDT): -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 - well controlled with Zonegran - restart when appropriate Insomnia 11/07/2024 Lung cancer 11/07/2024 Overview (12/20/2024): - s/p chemo/rads after Dx in 2020 - Hx of bronchial stenosis with prior R endobronchial stent (removed 10/2021) Assessment & Plan (12/18/2024 2:37 PM EDT): - 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 Assessment & Plan (12/17/2024 11:30 PM EDT): -Monitor per protocol. Tobacco dependence 11/07/2024 Assessment & Plan (12/18/2024 2:37 PM EDT): Complicates all aspects of care. Stopped smoking 3 days prior to surgery Assessment & Plan (12/17/2024 11:30 PM EDT): Complicates all aspects of care. Stopped smoking 3 days prior to surgery Assessment & Plan (12/23/2024 8:49 PM EDT): Complicates all aspects of care. Stopped smoking 3 days prior to surgery Chronic obstructive pulmonar y disease with (acute) exacerbation 03/07/2023 Assessment & Plan (12/18/2024 2:37 PM EDT): -not on home O2 - Resumed home albuterol and spiriva Assessment & Plan (12/17/2024 11:30 PM EDT): -not on home O2 - Resume home albuterol and spiriva when appropriate Assessment & Plan (12/23/2024 8:49 PM EDT): -not on home O2 - Resume home albuterol and spiriva when appropriate Chronic systolic HF (heart failure) 02/16/2022 Overview (11/08/2024): Added automatically from request for surgery [id number] Depression 08/11/2017 Resolved Problems Problem Noted Date Diagnosed Date Resolved Date Nausea 12/18/2024 12/21/2024 Assessment & Plan (12/18/2024 2:37 PM EDT): -Zofran and compazine does not help - gastric bubble seen on CXR - simethicone and reglan scheduled - haldol prn Thrombocytopenia 12/17/2024 12/21/2024 Overview (12/17/2024): - continue to trend Assessment & Plan (12/18/2024 2:37 PM EDT): -Continue to trend Assessment & Plan (12/17/2024 11:30 PM EDT): -Continue to trend Assessment & Plan (12/23/2024 8:49 PM EDT): -Continue to trend On mechanically assisted ventilation 12/17/2024 12/17/2024 Overview (12/17/2024): - expected post op - wean as able Assessment & Plan (12/23/2024 8:49 PM EDT): - expected post op - wean as able Electrolyte abnormality 12/17/202411/28 Overview (12/17/2024): - replace per ICU protocol Assessment & Plan (12/18/2024 2:37 PM EDT): - replace per ICU protocol Assessment & Plan (12/17/2024 11:30 PM EDT): - replace per ICU protocol Assessment & Plan (12/23/2024 8:49 PM EDT): - replace per ICU protocol Cardiac volume overload 12/17/202411/28 Assessment & Plan (12/18/2024 2:37 PM EDT): -Diuresis Assessment & Plan (12/17/2024 11:30 PM EDT): -Diuresis Angina pectoris 11/07/2024 12/21/2024 Encounters Date Type Department Care Team Description 01/18/2025 Orders Only [facility] Cardiothoracic [address], [address] [place] [phone] Andrew Paulson, MARIA A 01/17/2025 12:00 PM EDT Office Visit [facility] Cardiothoracic [address], [address] [place] [phone] Boris Al MD CAD in [place] artery (Primary Dx) 01/17/2025 10:36 AM EDT - 01/17/2025 11:59 PM EDT Hospital Encounter [facility] Radiology [address], [address] [place] [phone] CAD in [place] artery Discharge Disposition: Home or Self Care 01/17/2025 Travel 01/14/2025 Telephone [facility] [address] [place] [address] Shiela Branch, RN 01/02/2025 Orders Only [facility] Cardiothoracic [address], [address] [place] [address] Lubna Mena, TRAFFIC OBSERVER 12/31/2024 Orders Only [facility] Cardiothoracic [address], [address] [place] [address] Francisco Cates, MARIA A 12/25/2024 Telephone [facility] [address] [place] [address] Shiela Branch, RN 12/25/2024 Orders Only [facility] Cardiothoracic [address], [address] [place] [address] Francisco Cates, PA 12/24/2024 Orders Only Cardiothoracic Surgery [address] [place] [address] Chadwick Pedersen MD 12/24/2024 Telephone [facility] Transplant Center [address] [place] [address] Chastity Antunez RN 12/24/2024 Orders Only [facility] Cardiothoracic [address], [address] [place] [address] Francisco Cates PA 12/21/2024 Travel 12/20/2024 Travel 12/19/2024 Travel 12/18/2024 Travel 12/17/2024 7:31 AM EDT Anesthesia Event [facility] [address] [place] [address] Swati Burton MD Rangu, MD Savanah 12/17/2024 7:00 AM EDT - 12/17/2024 3:15 PM EDT Surgery [facility] [address] [place] [phone] Boris Al MD CABG, 2 OR MORE VESSELS [29014 (CPT )] 12/17/2024 5:11 AM EDT - 12/21/2024 12:01 PM EDT Hospital Encounter [facility] [address] [place] [address] Boris Al MD Reda, Hassan K, MD CAD in [place] artery (Primary Dx); Acute blood loss anemia; Cardiac volume overload; S/P CABG x 3 Discharge Disposition: Home or Self Care 12/17/2024 Travel 12/14/2024 Orders Only [facility] Cardiothoracic [address], [address] [place] [address] Provider, Historical 12/13/2024 11:50 AM EDT - 12/13/2024 11:59 PM EDT Hospital Encounter [facility] Radiology [address], [address] [place] [address] Coronary artery disease involving [place] coronary artery of [place] heart with angina pectoris ([facility]) Discharge Disposition: Home or Self Care 12/13/2024 11:20 AM EDT Office Visit [facility] Cardiothoracic [address], [address] [place] [address] Boris Al MD Coronary artery disease involving [place] coronary artery of [place] heart with angina pectoris (CMS/HCC) (Primary Dx) 12/13/2024 Orders Only [facility] Cardiothoracic [address], [address] [place] [address] Chastity Antunez RN Coronary artery disease involving [place] heart, unspecified vessel or lesion type, unspecified whether angina present (Primary Dx); Pre-operative exam 12/13/2024 Travel 12/10/2024 3:30 PM EDT Pre-Admission Testing [facility] Pre-op Clinic [address], [address] [place] [address] 12/10/2024 Travel from Last 3 Months Immunizations Immunization Administration Dates Next Due Influenza, injectable, quadrivalent 03/09/2018,1 ,07/13/2016 Pneumococcal Polysaccharide PPV23 09/25/2018,05/2006 Tdap 07/19/2022,03/10/2012 Family History Medical History Relation Name Comments Heart disease Brother Diabetes type II Father Heart disease Father Hypertension Father Anesthesia problems Neg Hx Malig Hyperthermia Neg Hx Relation Name Status Comments Brother Father Social History Tobacco Use Types Packs/Day Years Used Date Smoking Tobacco: Every Day Cigarettes 0.5 50.7 Started: 1974 Smokeless Tobacco: Never Tobacco Cessation:Ready to Q uit: Not Asked; Counseling Given: Not Answered Comments:She has been quitting, very close. Alcohol Use Standard Drinks/Week Comments [...] any time in the past 12 m [facility], were you homeless or living in a senior care (including now)? No 12/18/2024 Utilities Answer Date Recorded In the past 12 months has th e electric, gas, oil, or water company threatened to shut off services in your home? No 12/18/2024 Comments No Sex and Gender Information Value Date Recorded Sex Assigned at Not on file Legal Sex Female 1:50 PM EDT Gender Identity Not on file Sexual Orientation Not on file Last Filed Vital Signs Vital Sign Reading Time Taken Comments Blood Pressure 118/76 01/17/2025 12:18 PM EDT Pulse 102 01/17/2025 12:18 PM EDT Temperature 36.4 C (97.6 F) 12/21/2024 8:03 AM EDT Respiratory Rate 17 12/21/2024 8:03 AM EDT Oxygen Saturation 98% 01/17/2025 12:18 PM EDT Inhaled Oxygen Concentration - - Weight 67.7 kg (149 lb 4 oz) 01/17/2025 12:18 PM EDT Height 160 cm (5' 2.99 ) 12/18/2024 12:57 PM EDT Body Mass Index 26.45 12/18/2024 12:57 PM EDT Plan of Treatment Health Maintenance Due Date Last Done Comments [facility]-Depression Screening 1964 [facility]-HIV Screening 1964 [facility]-Hepatitis C Screening 1964 [facility]-Medicare Annual Wellness (AWV) 1965 [facility]-/Child/Adol SDOH Screenings 1965 [id number] Vaccine (#1) 1969 Diabetes: Dental Exam 1974 [facility]-Zoster Vaccines (1 of 2) 1983 CT Colonography 2009 Colonoscopy 2009 FIT 2009 FOBT 2009 Sigmoidoscopy 2009 [facility]-Breast Cancer Screening 2014 [facility]-Pneumococcal Vaccine: 50+ Years (3 of 3 - PCV) 09/26/2019 09/25/2018, 02/27/2007 [facility]-RSV Vaccine: 60+ Years or (1 - Risk 60-74 years 1-dose series) 2024 [facility]-Influenza Vaccine (#1) 01/28/202503/09, 03/01/2017, 07/13/2016 [facility]-Diabetes: Hemoglobin A1C 06/12/2025 12/13/2024 [facility]- SDOH Screenings 06/20/2025 [facility]-Adult SDOH Screenings 06/20/2025 12/18/2024 FIT-DNA 06/30/2026 06/30/2023 [facility]-Colorectal Cancer Screening 06/30/2026 [facility]-DTaP,Tdap,and Td Vaccines (3 - Td or Tdap) 07/19/2032 07/19/2022, 03/10/2012 [facility]-Obesity Intervention Completed 025, 12/13/2024, 11/08/2024, Additional history exists HPV Vaccines Aged Out No longer eligi ble based on patient's age to complete this topic [facility]-HIB Vaccines Aged Out No longer e ligible based on patient's age to complete this topic [facility]-Hepatitis A Vaccines Aged Out No longer eligible based on patient's age to complete this topic [facility]-IPV Vaccines Aged Out No longer e ligible based on patient's age to complete this topic [facility]-Rotavirus Vaccines Aged Out No lo nger eligible based on patient's age to complete this topic Procedures Procedure Name Priority Date/Time Associated Diagnosis Comments XR CHEST 2 VIEWS Routine 01/17/2025 10:4 3 AM EDT CAD in [place] artery XR CHEST 2 VIEWS Routine 12/21/2024 5:45 AM EDT PHOSPHORUS, PLASMA Routine 12/21/2024 3: 37 AM EDT MAGNESIUM, PLASMA Routine 12/21/2024 3:3 7 AM EDT CBC W/O DIFFERENTIAL Routine 12/21/2024 3:37 AM EDT BASIC METABOLIC PANEL, PLASMA Routine 12/21/2024 3:37 AM EDT XR CHEST 1 VIEW Routine 12/20/2024 6:19 AM EDT N-TERMINAL PROBNP, PLASMA Routine 12/20/2024 4:41 AM EDT PHOSPHORUS, PLASMA Routine 12/20/2024 4: 41 AM EDT MAGNESIUM, PLASMA Routine 12/20/2024 4:4 1 AM EDT CBC W/O DIFFERENTIAL Routine 12/20/2024 4:41 AM EDT BASIC METABOLIC PANEL, PLASMA Routine [...] PROBNP, PLASMA Add-On 12/19/2024 1:26 AM EDT LIPID PROFILE, PLASMA Add-On 12/19/2024 1:26 AM EDT PHOSPHORUS, PLASMA Routine 12/19/2024 1: 26 AM EDT MAGNESIUM, PLASMA Routine 12/19/2024 1:2 6 AM EDT CBC W/O DIFFERENTIAL Routine 12/19/2024 1:26 AM EDT BASIC METABOLIC PANEL, [...] PEP THERAPY Routine 12/18/2024 8:00 AM EDT NERVE BLOCK Routine 12/18/2024 7:38 AM EDT POCT GLUCOSE METER UNSOLICITED RESULTS Routine 12/18/2024 6:27 AM EDT PEP THERAPY Routine 12/18/2024 4:00 AM EDT ECG ADULT Routine 12/18/2024 3:51 AM EDT XR CHEST 1 VIEW Routine 12/18/2024 2:57 AM EDT PHOSPHORUS, PLASMA Routine 12/18/2024 12 :42 AM EDT MAGNESIUM, PLASMA Routine 12/18/2024 12: 42 AM EDT CBC W/O DIFFERENTIAL Routine 12/18/2024 12:42 AM EDT BASIC METABOLIC PANEL, PLASMA Routine 12/18/2024 12:42 AM EDT POTASSIUM, PLASMA Timed 12/18/2024 12: 42 AM EDT HEMATOCRIT, BLOOD Timed 12/18/2024 12: 42 AM EDT HEMOGLOBIN Timed 12/18/2024 12:42 AM EDT POCT GLUCOSE METER UNSOLICITED RESULTS Routine 12/18/2024 12:41 AM EDT BLOOD GAS PANEL, ARTERIAL Routine 12/18/2024 12:41 AM EDT PEP THERAPY Routine 12/18/2024 12:00 AM EDT NV CRITICAL CARE, ADDL 30 MIN Routine 12/17/2024 11:16 PM EDT Acute blood loss anemia Cardiac volume overload S/P CABG x 3 POTASSIUM, PLASMA Timed 12/17/2024 8:0 7 PM EDT HEMATOCRIT, BLOOD Timed 12/17/2024 8:0 7 PM EDT HEMOGLOBIN Timed 12/17/2024 8:07 PM EDT BLOOD GAS PANEL, ARTERIAL Timed 12/17/2024 8:07 PM EDT PEP THERAPY Routine 12/17/2024 8:00 PM EDT POTASSIUM, PLASMA Timed 12/17/2024 6:4 3 PM EDT HEMATOCRIT, BLOOD Timed 12/17/2024 6:4 3 PM EDT HEMOGLOBIN Timed 12/17/2024 6:43 PM EDT BLOOD GAS PANEL, ARTERIAL Timed [...] UNSOLICITED RESULTS Routine 12/17/2024 4:52 PM EDT NV CRITICAL CARE, E/M 30-74 MINUTES Routine 12/17/2024 4:22 PM EDT CAD in [place] artery ODALYS AURIS SURVEILLANCE BY PCR Routine 12/17/2024 3:40 PM EDT MULTI DRUG RESISTANCE TEST Routine 12/17/2024 3:40 PM EDT APTT STAT 12/17/2024 3:39 PM EDT PROTHROMBIN TIME(PT) / INR STAT 12/17/2024 3:39 PM EDT PHOSPHORUS, PLASMA STAT 12/17/2024 3: 39 PM EDT MAGNESIUM, PLASMA STAT 12/17/2024 3:3 9 PM EDT BASIC METABOLIC PANEL, PLASMA STAT 12/17/2024 3:39 PM EDT CBC W/O DIFFERENTIAL STAT 12/17/2024 3:39 PM EDT BLOOD GAS PANEL, ARTERIAL STAT 12/17/2024 3:39 PM EDT ECG ADULT STAT 12/17/2024 3:32 PM EDT PEP THERAPY Routine 12/17/2024 3:05 PM EDT PB ANESTHESIA NON-TIMED PROCEDURE PLACEHOLDER Routine 12/17/2024 2:20 PM EDT POCT ACT UNSOLICITED RESULTS Routine [...] UNSOLICITED RESULTS Routine 12/17/2024 10:30 AM EDT PB POINT OF CARE IMAGING PLACEHOLDER Routine 12/17/2024 8:16 AM EDT NV INSERT/PLACE FLOW DIRECT CATH Routine 12/17/2024 8:16 AM EDT ANESTHESIA ULTRASOUND GUIDED Routine 12/17/2024 8:16 AM EDT PB ANESTHESIA NON-TIMED PROCEDURE PLACEHOLDER Routine 12/17/2024 8:16 AM EDT NV AN CENTRAL LINE SINGLE LUMEN Routine 12/17/2024 8:16 AM EDT POCT ARTERIAL BLOOD GAS GEM UNSOLICITED RESULTS Routine 12/17/2024 7:57 AM EDT PB ANESTHESIA PLACEHOLDER Routine 12/17/2024 7:55 AM EDT NV AN ELECTIVE ENDOTRACHEAL AIRWAY Routine 12/17/2024 7:55 AM EDT POCT ACT UNSOLICITED RESULTS Routine 12/17/2024 7:52 AM EDT PB POINT OF CARE IMAGING PLACEHOLDER Routine 12/17/2024 7:52 AM EDT PB ANESTHESIA NON-TIMED PROCEDURE PLACEHOLDER Routine 12/17/2024 7:52 AM EDT PREPARE RBC STAT 12/17/2024 7:50 AM EDT APTT Routine 12/17/2024 7:23 AM EDT PROTHROMBIN TIME(PT) / INR STAT 12/17/2024 7:23 AM EDT COMPREHENSIVE METABOLIC PANEL, PLASMA Routine 12/17/2024 7:23 AM EDT CBC W/O DIFFERENTIAL STAT 12/17/2024 7:23 AM EDT TYPE AND SCREEN Routine 12/17/2024 7:23 AM EDT NV CABG, ARTERIAL, SINGLE 12/17/2024 7:18 AM EDT Coronary artery disease involving [place] coronary artery of [place] heart with angina pectoris ([facility]/HCC) POCT GLUCOSE METER UNSOLICITED RESULTS Routine 12/17/2024 6:08 AM EDT APTT Routine 12/14/2024 4:42 PM EDT APTT Routine 12/14/2024 TYPE AND SCREEN 30 DAYS Routine 12/13/2024 12:42 PM EDT Coronary artery disease involving [place] coronary artery of [place] heart with angina pectoris (CMS/HCC) APTT Routine 12/13/2024 12:42 PM EDT Coronary artery disease involving [place] coronary artery of [place] heart with angina pectoris (CMS/HCC) PROTHROMBIN TIME(PT) / INR Routine 12/13/2024 12:42 PM EDT Coronary artery disease involving [place] coronary artery of [place] heart with angina pectoris (CMS/HCC) HEMOGLOBIN A1C Routine 12/13/2024 12:42 PM EDT Coronary artery disease involving [place] coronary artery of [place] heart with angina pectoris (CMS/HCC) COMPREHENSIVE METABOLIC PANEL, PLASMA Routine 12/13/2024 12:42 PM EDT Coronary artery disease involving [place] coronary artery of [place] heart with angina pectoris (CMS/HCC) CBC W/O DIFFERENTIAL Routine 12/13/2024 12:42 PM EDT Coronary artery disease involving [place] coronary artery of [place] heart with angina pectoris (CMS/HCC) XR CHEST 2 VIEWS Routine 12/13/2024 11:5 6 AM EDT Coronary artery disease involving [place] coronary artery of [place] heart with angina pectoris (CMS/HCC) from Last 3 Months Results * XR Chest 2 Views (01/17/2025 10:43 AM EDT) Only the most recent of3 resultswithin the time period is included. Anatomical Region Laterality Modality Chest Digital Radiogra [...] Mike Sheffield MD on 01/17/2025 11:32 AM us Boris Al MD IMG XR PROCEDURES Final Resu lt * (ABNORMAL) CBC (12/21/2024 3:37 AM EDT) Only the most recent of7 resultswithin the time period is included. WBC Count 7.29 3.70 - 10.30 10*3/uL LAB HEMATOLOGY METHOD 12/21/2024 4:31 AM EDT [facility] RBC Count 2.78(L) 3.90 - 5.20 10*6/uL LAB HEMATOLOGY METHOD 12/21/2024 4:31 AM EDT [facility] HGB 8.7(L) 11.2 - 15.7 g/dL LAB HEMATOLOGY METHOD 12/21/2024 4:31 AM EDT [facility] HCT 26.0(L) 34.0 - 45.0 % LAB HEMATOLOGY METHOD 12/21/2024 4:31 AM EDT [facility] Platelet Count 133(L) 155 - 369 10*3/uL LAB HEMATOLOGY METHOD 12/21/2024 4:31 AM EDT [facility] MCV 94 79 - 98 fL LAB HEMATOLOGY METHOD 12/21/2024 4:31 AM EDT [facility] MCH 31.3 26.0 - 32.0 pg LAB HEMATOLOGY METHOD 12/21/2024 4:31 AM EDT [facility] MCHC 33.5 30.7 - 35.5 g/dL LAB HEMATOLOGY METHOD 12/21/2024 4:31 AM EDT [facility] RDW 16.3(H) 11.5 - 14.5 % LAB HEMATOLOGY METHOD 12/21/2024 4:31 AM EDT [facility] MPV 11.4 8.8 - 12.5 fL LAB HEMATOLOGY METHOD 12/21/2024 4:31 AM EDT [facility] nRBC 0.0 <=0.0 per 100 WBCs LAB HEMATOLOGY METHOD 12/21/2024 4:31 AM EDT [facility] Blood Venous blood specimen / Unknown Venipuncture / Unknown 12/21/2024 3:37 AM EDT 12/21/2024 4:19 AM EDT us Boris Al MD LAB BLOOD ORDERABLES Final R esult [facility] [address] [place] [address] * (ABNORMAL) Phosphorus (12/21/2024 3:37 AM EDT) Only the most recent of6 resultswithin the time period is included. Phosphorus, Plasma 1.7(L) 2.5 - 4.5 mg/dL 12/21/2024 4:56 AM EDT [facility] Blood Venous blood specimen / Unknown Venipuncture / Unknown 12/21/2024 3:37 AM EDT 12/21/2024 4:20 AM EDT Boris Al MD LAB BLOOD ORDERABLES Final R esult Performing Organization Address City/[facility]/ZIP Co de Phone Number [facility] [address] [place] [address] * (ABNORMAL) Magnesium (12/21/2024 3:37 AM EDT) Only the most recent of7 resultswithin the time period is included. Magnesium, Plasma 1.8(L) 1.9 - 2.4 mg/dL 12/21/2024 4:56 AM EDT [facility] Blood Venous blood specimen / Unknown Venipuncture / Unknown 12/21/2024 3:37 AM EDT 12/21/2024 4:20 AM EDT Boris Al MD LAB BLOOD ORDERABLES Final R esult Performing Organization Address City/[facility]/ZIP Co de Phone Number [facility] [address] [place] [address] * (ABNORMAL) Basic metabolic panel (12/21/2024 3:37 AM EDT) Only the most recent of6 resultswithin the time period is included. Glucose, Plasma 113(H) 74 - 99 mg/dL 12/21/2024 4:56 AM EDT [facility] BUN, Plasma 15 8 - 23 mg/dL 12/21/2024 4:56 AM EDT [facility] Creatinine, Plasma 0.56(L) 0.60 - 1.10 mg/dL 12/21/2024 4:56 AM EDT [facility] BUN/Creatinine Ratio 27 12/21/2024 4:56 AM EDT [facility] Sodium, Plasma 137 136 - 145 mmol/L 12/21/2024 4:56 AM EDT [facility] Potassium, Plasma 3.5(L) 3.6 - 4.9 mmol/L 12/21/2024 4:56 AM EDT [facility] Chloride, Plasma 104 97 - 107 mmol/L 12/21/2024 4:56 AM EDT [facility] CO2, Plasma 24 22 - 29 mmol/L 12/21/2024 4:56 AM EDT [facility] Anion Gap 9 6 - 16 mmol/L 12/21/2024 4:56 AM EDT [facility] Total Calcium, Plasma 8.0(L) 8.9 - 10.2 mg/dL 12/21/2024 4:56 AM EDT [facility] eGFRcr 104.6 mL/min/1.7 3m*2 12/21/2024 4:56 AM EDT [facility] Comment:Reported eGFRcr in m L/min/1.73m2 is based the CKD-EPI 2020 equation that does not use a race coefficient. Blood Venous blood specimen / Unknown Venipuncture / Unknown 12/21/2024 3:37 AM EDT 12/21/2024 4:20 AM EDT Boris Al MD LAB BLOOD ORDERABLES Final R esult [facility] [address] [place] [address] * XR Chest 1 View (12/20/2024 6:19 AM EDT) Only the most recent of4 resultswithin the time period is included. Anatomical Region Laterality Modality Chest Digital Radiogra phy Impressions 12/20/2024 9:51 AM EDT Stable aeration. CRITICAL RESULT: No. COMMUNICATION: Per this written report. By electronically signing this report, I, the attending physician, attest that I have personally reviewed the images/data for the above examination(s) and agree with the final edited report. Drafted by Alvin Cespedse MD on 12/20/2024 9:12 AM Final report [...] Resu lt * (ABNORMAL) N-Terminal Probnp, Plasma (12/20/2024 4:41 AM EDT) Only the most recent of2 resultswithin the time period is included. N-Terminal, PROBNP, Plasma 4,401(H) 0 - 899 pg/mL 12/20/2024 5:27 AM EDT [facility] Blood Venous blood specimen / Unknown Venipuncture / Unknown 12/20/2024 4:41 AM EDT 12/20/2024 4:55 AM EDT us Jeannette García APRN LAB BLOOD ORDERABLES Final R esult [facility] [address] [place] [address] * ECG Adult (12/19/2024 6:09 PM EDT) Only the most recent of3 resultswithin the time period is included. EKG DIAGNOSIS CLASS Abnormal MUSE ECG Ventricular Rate 89 BPM MUSE ECG Atrial Rate 89 BPM MUSE ECG NV Interval 168 ms MUSE ECG QRSD Interval 104 ms MUSE ECG QT Interval 394 ms MUSE ECG QTC Interval 479 ms MUSE ECG P [place] 50 degrees MUSE ECG R [place] 49 degrees MUSE ECG T Wave [place] 108 degrees MUSE ECG Diagnosis Normal sinus [...] POCT glucose meter (12/19/2024 5:24 PM EDT) Only the most recent of12 resultswithin the time period is included. POCT Glucose 142(H) 74 - 99 mg/dL [...] for testing. Comment 12/19/2024 5:27 PM EDT [facility] Curing Oven Tender ID Meenakshi Sebastian 12/20/19 5:27 PM EDT [facility] Device ID [id number] 12/19/2024 5:27 PM EDT [facility] Specimen Type POC Capillary 12/19/2024 5:27 PM EDT [facility] Blood Capillary blood specimen / Unknown 12/19/2024 5:24 PM EDT 12/19/2024 5:27 PM EDT us Antonette Hernandez MD LAB POINT OF CARE TE ST DOCKED DEVICE UNSOLICITED RESULTS Final Result [facility] [address] [place] [address] * XR Abdomen 1 View (12/19/2024 2:34 [...] on 12/19/2024 6:28 AM us Shazia Newman TRAFFIC OBSERVER IMG XR PROCEDURES Final Res ult * (ABNORMAL) Lipid panel (12/19/2024 1:26 AM EDT) Cholesterol, Plasma 96 <200 mg/dL 12/19/2024 1:59 PM EDT [facility] Comment: Cholesterol Reference Range (age >17 years): Desirable <200 mg/dL Borderline 200 to 239 mg/dL Undesirable >239 mg/dL HDL 43(L) >=50 mg/dL 12/19/2024 1:59 PM EDT [facility] Comment: HDL Cholesterol Reference Ranges (age >17 years): Female, acceptable > or = 50 mg/dL Male, acceptable > or = 40 mg/dL Triglycerides, Plasma 105 <150 mg/dL 12/19/2024 1:59 PM EDT [facility] Comment: Triglyceride Reference Range (age >17 years): Desirable: <150 mg/dL Borderline high: 150 to 199 mg/dL High: 200 to 499 mg/dL Very high: >499 mg/dL Increased risk of pancreatitis: >1000 mg/dL Cholesterol/HDL Ratio 2 12/19/2024 1:59 PM EDT [facility] LDL, Calculated 33 <100 mg/dL 1:59 PM EDT [facility] Comment: LDL Cholesterol Reference [...] 12 hours? Unknown 12/19/2024 1:59 PM EDT [facility] Blood Venous blood specimen / Unknown Venipuncture / Unknown 12/19/2024 1:26 AM EDT 12/19/2024 1:35 AM EDT us Jeannette García APRN LAB BLOOD ORDERABLES Final R esult [facility] [address] [place] [address] * (ABNORMAL) Renal Function Panel, Plasma (12/18/2024 9:50 AM EDT) Glucose, Plasma 148(H) 74 - 99 mg/dL 12/18/2024 10:43 AM EDT [facility] BUN, Plasma 20 8 - 23 mg/dL 12/18/2024 10:43 AM EDT [facility] Creatinine, Plasma 0.94 0.60 - 1.10 mg/dL 12/18/2024 10:43 AM EDT [facility] BUN/Creatinine Ratio 21 12/18/2024 10:43 AM EDT [facility] Sodium, Plasma 138 136 - 145 mmol/L 12/18/2024 10:43 AM EDT [facility] Potassium, Plasma 4.3 3.6 - 4.9 mmol/L 12/18/2024 10:43 AM EDT [facility] Chloride, Plasma 104 97 - 107 mmol/L 12/18/2024 10:43 AM EDT [facility] CO2, Plasma 21(L) 22 - 29 mmol/L 12/18/2024 10:43 AM EDT [facility] Anion Gap 13 6 - 16 mmol/L 12/18/2024 10:43 AM EDT [facility] Total Calcium, Plasma 7.8(L) 8.9 - 10.2 mg/dL 12/18/2024 10:43 AM EDT [facility] Phosphorus, Plasma 5.3(H) 2.5 - 4.5 mg/dL 12/18/2024 10:43 AM EDT [facility] Albumin, Plasma 3.8 3.5 - 5.2 g/dL 12/18/2024 10:43 AM EDT [facility] eGFRcr 69.6 mL/min/1.7 3m*2 12/18/2024 10:43 AM EDT [facility] Comment:Reported eGFRcr in m L/min/1.73m2 is based the CKD-EPI 2020 equation that does not use a race coefficient. Blood Arterial blood specimen / Unknown Venipuncture / Unknown 12/18/2024 9:50 AM EDT 12/18/2024 10:12 AM EDT us Shazia Newman TRAFFIC OBSERVER LAB BLOOD ORDERABLES Final Result [facility] [address] [place] [address] * Nerve Block (12/18/2024 7:38 AM EDT) Narrative Swati Burton MD - 12/18/2024 7:38 AM EDT Swati Burton MD 01/07/2025 1:54 PM Nerve Block Performed by: Savanah Seo MD Authorized by: Swati Burton MD Consent: Consent obtained: Written Consent given by: Patient Risks, benefits, and alternatives were discussed: yes Risks discussed: Allergic reaction, bleeding, intravenous injection, infection, nerve damage, pain and swelling [place] protocol: Procedure explained and questions answered to [...] IN CLINIC/BEDSIDE ORDERABL ES Final Result * (ABNORMAL) Hemoglobin (12/18/2024 12:42 AM EDT) Only the most recent of3 resultswithin the time period is included. HGB 10.6(L) 11.2 - 15.7 g/dL LAB HEMATOLOGY METHOD 12/18/2024 12:58 AM EDT [facility] Blood Venous blood specimen / Unknown Venipuncture / Unknown 12/18/2024 12:42 AM EDT 12/18/2024 12:48 AM EDT us Boris Al MD LAB BLOOD ORDERABLES Final R esult [facility] [address] [place] [address] * (ABNORMAL) Hematocrit (12/18/2024 12:42 AM EDT) Only the most recent of3 resultswithin the time period is included. HCT 30.9(L) 34.0 - 45.0 % LAB HEMATOLOGY METHOD 12/18/2024 12:58 AM EDT [facility] Blood Venous blood specimen / Unknown Venipuncture / Unknown 12/18/2024 12:42 AM EDT 12/18/2024 12:48 AM EDT Boris Al MD LAB BLOOD ORDERABLES Final R esult Performing Organization Address City/[facility] Co de Phone Number [facility] [address] [place] [address] * Potassium, Plasma (12/18/2024 12:42 AM EDT) Only the most recent of3 resultswithin the time period is included. Potassium, Plasma 4.1 3.6 - 4.9 mmol/L 12/18/2024 1:24 AM EDT [facility] Blood Venous blood specimen / Unknown Venipuncture / Unknown 12/18/2024 12:42 AM EDT 12/18/2024 12:48 AM EDT Boris Al MD LAB BLOOD ORDERABLES Final R esult Performing Organization Address City/[facility] Co de Phone Number [facility] [address] [place] [address] * (ABNORMAL) Blood gas, arterial (12/18/2024 12:41 AM EDT) Only the most recent of5 resultswithin the time period is included. pH, Arterial 7.33 7.31 - 7.42 LAB HEMATOLOGY METHOD 12/18/2024 1:21 AM EDT [facility] pCO2, Arterial 43 35 - 48 mmHg LAB HEMATOLOGY METHOD 12/18/2024 1:21 AM EDT [facility] pO2, Arterial 107 >80 mmHg LAB HEMATOLOGY METHOD 12/18/2024 1:21 AM EDT [facility] SO2, Measured, Arterial 98 94 - 98 % LAB HEMATOLOGY METHOD 12/18/2024 1:21 AM EDT [facility] Base Excess, Arterial -3.6(L) -2.0 - 3.0 mmol/L LAB HEMATOLOGY METHOD 12/18/2024 1:21 AM EDT [facility] Bicarbonate, Calculated, Arterial 22 22 - 26 mmol/L LAB HEMATOLOGY METHOD 12/18/2024 1:21 AM EDT [facility] Hematocrit, Whole Blood 33.0(L) 34.0 - 45.0 % LAB HEMATOLOGY METHOD 12/18/2024 1:21 AM EDT [facility] Sodium, Whole Blood 140 136 - 145 mmol/L LAB HEMATOLOGY METHOD 12/18/2024 1:21 AM EDT [facility] Potassium, Whole Blood 4.0 3.6 - 4.9 mmol/L LAB HEMATOLOGY METHOD 12/18/2024 1:21 AM EDT [facility] Chloride, Whole Blood 109(H) 97 - 107 mmol/L LAB HEMATOLOGY METHOD 12/18/2024 1:21 AM EDT [facility] Glucose, Whole Blood 182(H) 74 - 99 mg/dL LAB HEMATOLOGY METHOD 12/18/2024 1:21 AM EDT [facility] Ionized Calcium, Whole Blood 3.9(L) 4.6 - 5.1 mg/dL LAB HEMATOLOGY METHOD 12/18/2024 1:21 AM EDT [facility] Lactate, Arterial, Whole Blood 2.9(H) 0.5 - 1.6 mmol/L LAB HEMATOLOGY METHOD 12/18/2024 1:21 AM EDT [facility] Blood Arterial blood specimen / Unknown Arterial Puncture / Unknown 12/18/2024 12:41 AM EDT 12/18/2024 1:20 AM EDT us Boris Al MD LAB BLOOD ORDERABLES Final R esult [facility] [address] [place] [address] * NV CRITICAL CARE, ADDL 30 MIN (12/17/2024 11:16 [...] and nursing services were present on rounds. Shazia Newman APRN IN CLINIC/BEDSIDE ORDERABLE S Final Result * NV CRITICAL CARE, E/M 30-74 MINUTES (12/17/2024 4:22 [...] IN CLINIC/BEDSIDE ORDERABLES Fi nal Result * Odalys auris Surveillance by PCR (12/17/2024 3:40 PM EDT) Odalys auris PCR Result Not Detected Not Detected 12/19/2024 4:46 AM EDT [facility] Swab (Axilla and Groin) Non-blood Collection / Unknown 12/17/2024 3:40 PM EDT 12/17/2024 3:53 PM EDT Narrative [facility] - 12/19/2024 4:46 AM EDT This PCR assay was developed and its performance characteristics determined by [facility] as appropriate for clinical purposes. This assay has not been cleared or approved by the FDA, but is performed in a CLIA regulated laboratory that is qualified to perform high-complexity testing. This PCR assay was developed and its performance characteristics determined by [facility] as appropriate for clinical purposes. This assay has not been cleared or approved by the FDA, but is performed in a CLIA regulated laboratory that is qualified to perform high-complexity testing. us Boris Al MD LAB MICROBIOLOGY - GENERAL O RDERABLES Final Result [facility] [address] [place] [address] * Multi Drug Resistance Test (12/17/2024 3:40 PM EDT) Culture No growth at day 1 12/18/2024 8:06 PM EDT [facility] Swab (Nares and Paige Rectal) Non-blood Collection / Unknown 12/17/2024 3:40 PM EDT 12/17/2024 3:53 PM EDT Narrative [facility] - 12/18/2024 8:06 PM EDT This test was developed and its performance characteristics determined by the [facility]. Although the media is FDA-approved, it is not FDA-approved for all specimen types submitted. The FDA has determined that such clearance or approval is not necessary. This test is used for surveillance purposes. It should not be regarded as investigational or for research. The [facility] is certified under the Clinical Laboratory Improvement Amendments of 1988 (CLIA-88) as qualified to perform high complexity clinical laboratory testing. Boris Al MD LAB MICROBIOLOGY - GENERAL O RDERABLES Final Result Performing Organization Address City/[facility]/ZIP Co de Phone Number [facility] [address] [place] [address] * APTT (12/17/2024 3:39 PM EDT) Only the most recent of5 resultswithin the time period is included. aPTT 28 25 - 35 sec LAB COAGULATION METHOD 12/17/2024 4:12 PM EDT [facility] Blood Venous blood specimen / Unknown Venipuncture / Unknown 12/17/2024 3:39 PM EDT 12/17/2024 3:54 PM EDT Boris Al MD LAB BLOOD ORDERABLES Final R esult Performing Organization Address [facility] Co de Phone Number [facility] [address] [place] [address] * (ABNORMAL) Protime-INR (12/17/2024 3:39 PM EDT) Only the most recent of3 resultswithin the time period is included. Prothrombin Time 17.6(H) 12.0 - 14.3 sec LAB COAGULATION METHOD 12/17/2024 4:12 PM EDT [facility] INR 1.4(H) 0.9 - 1.1 LAB COAGULATION METHOD 12/17/2024 4:12 PM EDT [facility] Blood Venous blood specimen / Unknown Venipuncture / Unknown 12/17/2024 3:39 PM EDT 12/17/2024 3:54 PM EDT Narrative [facility] - 12/17/2024 4:12 PM EDT OPTIMAL INR RANGES FOR PATIENT ON ORAL ANTICOAGULANT THERAPY Prevention of venous thromboembolism INR 2.0 to 3.0 In patients with heart disease: Atrial fibrillation INR 2.0 to 3.0 Valvular heart disease INR 2.0 to 3.0 Tissue heart valves INR 2.0 to 3.0 Mechanical prosthetic valves INR 2.5 to 3.5 Prevention of recurrent VA INR 2.5 to 3.5 us Boris Al MD LAB BLOOD ORDERABLES Final R esult [facility] [address] [place] [address] * PB ANESTHESIA NON-TIMED PROCEDURE PLACEHOLDER (12/17/2024 [...] intact s/p decannulation. Findings communicated with surgeon. Swati Burton MD ANESTHESIA ORDERABLES Edit ed Result - Final * POCT ACT (12/17/2024 2:11 PM EDT) Only the most recent of9 resultswithin the time period is included. ACT+ (HIGH RANGE) 126 68 - 600 Seconds 12/17/2024 2:14 PM EDT [facility] Curing Oven Tender ID Huy Kyle 12/17/2024 2:14 PM EDT [facility] ACT Device ID [id number] 12/17/2024 2:14 PM EDT [facility] Comment 12/17/2024 2:14 PM EDT [facility] Comment: ACT performed by [...] ST DOCKED DEVICE UNSOLICITED RESULTS Final Result [facility] [address] [place] [address] [facility] [address] [place] [address] * Transfuse RBC (12/17/2024 2:00 PM EDT) Only the most recent of2 resultswithin the time period is included. us Swati Burton MD BLOOD TRANSFUSION ORDERABL ES Final Result * (ABNORMAL) POCT arterial blood gas gem (12/17/2024 1:52 PM EDT) Only the most recent of9 resultswithin the time period is included. pH, Arterial 7.34 7.31 - 7.42 12/17/2024 1:59 PM EDT [facility] pCO2, Arterial 48 35 - 48 mm Hg 12/17/2024 1:59 PM EDT [facility] pO2, Arterial 270 >80 mm Hg 12/17/2024 1:59 PM EDT [facility] SO2, Arterial 99(H) 94 - 98 % 12/17/2024 1:59 PM EDT [facility] Base Excess, Arterial 0.0 -2 - 3 mmol/L 12/17/2024 1:59 PM EDT [facility] HCO3, Arterial 25.9 22 - 26 mmol/L 12/17/2024 1:59 PM EDT [facility] Total Hemoglobin, Arterial, Whole Blood 7.3(L) 11.2 - 15.7 g/dL 12/17/2024 1:59 PM EDT [facility] Hematocrit, Arterial 22.0(L) 34.0 - 45.0 % 12/17/2024 1:59 PM EDT [facility] Sodium, Arterial 149(H) 136 - 145 mmol/L 12/17/2024 1:59 PM EDT [facility] Potassium, Arterial 3.1(L) 3.6 - 4.9 mmol/L 12/17/2024 1:59 PM EDT [facility] Chloride, Whole Blood 115(H) 97 - 107 mmol/L 12/17/2024 1:59 PM EDT [facility] Glucose, Arterial 226(H) 74 - 99 mg/dL 12/17/2024 1:59 PM EDT [facility] Ionized Calcium, Arterial 4.8 4.6 - 5.1 mg/dL 12/17/2024 1:59 PM EDT [facility] Lactate, Arterial 3.5(H) 0.5 - 1.6 mmol/L 12/17/2024 1:59 PM EDT [facility] Body Temperature 37.0 Celsius 12/17/2024 1:59 PM EDT [facility] pH, Temp Corrected, Arterial 7.34 7.31 - 7.42 12/17/2024 1:59 PM EDT [facility] pCO2, Temp Corrected, Arterial 48 35 - 48 mm Hg 12/17/2024 1:59 PM EDT [facility] pO2, Temp Corrected, Arterial 270 >80 mm Hg 12/17/2024 1:59 PM EDT [facility] Curing Oven Tender ID Swati Burton 12/17/2024 1:59 PM EDT [facility] Blood, Arterial Whole blood specimen / Unknown 12/17/2024 1:52 PM EDT 12/17/2024 1:59 PM EDT us Boris Al MD LAB POINT OF CARE TE ST DOCKED DEVICE UNSOLICITED RESULTS Final Result Performing Organization Address City/State/[facility] Co de Phone Number [facility] [address] [place] [address] * NV AN CENTRAL LINE SINGLE LUMEN, PB ANESTHESIA NON-TIMED PROCEDURE PLACEHOLDER, ANESTHESIA ULTRASOUND GUIDED, NV INSERT/PLACE FLOW DIRECT CATH, PB POINT OF [...] MD ANESTHESIA ORDERABLES Kaia l Result * NV AN ELECTIVE ENDOTRACHEAL AIRWAY, PB ANESTHESIA PLACEHOLDER [...] Staff Other anesthesia staff: Savanah Seo MD Result [facility] Swati Burton MD ANESTHESIA ORDERABLES Kaia l Result * Prepare Leukocyte Reduced RBC: 2 Units (12/17/2024 7:50 AM EDT) Product Code [id number] BLOO D BANK Dispense Status Transfused BLOOD BANK Blood Expiration Date [id number] BLOOD BANK Unit Number [id number] CH B LOOD BANK Product Blood Type 5100 BLOOD BANK Blood Type O+ BLOOD BANK Crossmatch Compatible BLOOD BANK Product Code [id number] CH BLOO D BANK Dispense Status Transfused BLOOD BANK Blood Expiration Date [id number] BLOOD BANK Unit Number [id number] B LOOD BANK Product Blood Type 5100 BLOOD BANK Blood Type O+ CH BLOOD BANK Crossmatch Compatible BLOOD BANK Other Swati Burton MD BLOOD BANK PRODUCT ORDERAB LES Final Result Performing Organization Address City/[facility]/ZIP Co de Phone Number BLOOD BANK [address] [place] [address], * Type and screen (12/17/2024 7:23 AM [...] ORDERA BLES Final Result Performing Organization Address [facility] Co de Phone Number BLOOD BANK [address] [place] [address], [place] * (ABNORMAL) Comprehensive metabolic panel (12/17/2024 7:23 AM EDT) Only the most recent of2 resultswithin the time period is included. Glucose, Plasma 96 74 - 99 mg/dL 12/17/2024 8:19 AM EDT [facility] BUN, Plasma 15 8 - 23 mg/dL 12/17/2024 8:19 AM EDT [facility] Creatinine, Plasma 0.76 0.60 - 1.10 mg/dL 12/17/2024 8:19 AM EDT [facility] BUN/Creatinine Ratio 20 12/17/2024 8:19 AM EDT [facility] Sodium, Plasma 141 136 - 145 mmol/L 12/17/2024 8:19 AM EDT [facility] Potassium, Plasma 4.1 3.6 - 4.9 mmol/L 12/17/2024 8:19 AM EDT [facility] Chloride, Plasma 109(H) 97 - 107 mmol/L 12/17/2024 8:19 AM EDT [facility] CO2, Plasma 21(L) 22 - 29 mmol/L 12/17/2024 8:19 AM EDT [facility] Anion Gap 11 6 - 16 mmol/L 12/17/2024 8:19 AM EDT [facility] Total Calcium, Plasma 9.6 8.9 - 10.2 mg/dL 12/17/2024 8:19 AM EDT [facility] Total Protein 7.7 6.3 - 7.9 g/dL 12/17/2024 8:19 AM EDT [facility] Albumin, Plasma 4.7 3.5 - 5.2 g/dL 12/17/2024 8:19 AM EDT [facility] AST, Plasma 25 10 - 35 U/L 12/17/2024 8:19 AM EDT [facility] Comment:Hemolyzed, result ma y be falsely increased. ALT, Plasma 26 10 - 35 U/L 12/17/2024 8:19 AM EDT [facility] Alkaline Phosphatase, Plasma 117 46 - 142 U/L 12/17/2024 8:19 AM EDT [facility] Total Bilirubin, Plasma <0.2(L) 0.2 - 1.1 mg/dL 12/17/2024 8:19 AM EDT [facility] eGFRcr 89.8 mL/min/1.7 3m*2 12/17/2024 8:19 AM EDT [facility] Comment:Reported eGFRcr in m L/min/1.73m2 is based the CKD-EPI 2020 equation that does not use a race coefficient. Blood Venous blood specimen / Unknown Venipuncture / Unknown 12/17/2024 7:23 AM EDT 12/17/2024 7:30 AM EDT [facility] BLOOD ORDERABLES Final Resu lt [facility] [address] [place] [address] * Type & Screen, 30 Days (12/13/2024 [...] EDT us Boris Al MD LAB BLOOD BANK TEST ORDERABL ES Final Result Performing Organization Address City/[facility]/ZIP Co de Phone Number BLOOD BANK [address] [place] [address], * (ABNORMAL) Hemoglobin A1c (12/13/2024 12:42 PM EDT) Hemoglobin A1c 5.8(H) <5.7 % 12/13/2024 3:57 PM EDT [facility] Blood Venous blood specimen / Unknown Venipuncture / Unknown 12/13/2024 12:42 PM EDT 12/13/2024 12:42 PM EDT Narrative [facility] - 12/13/2024 3:57 PM EDT HA1C Interpretive Data: Diagnosis of Diabetes: Diabetic > or = 6.5% Pre-diabetic 5.7 to 6.4% Non-diabetic < or = 5.6% Glycemic Targets for Type I and Type II Diabetics: Non- Adults <7.0% Adults <6.0% Children and Adolescents <7.5% Source: [place] [employer]. Standards of medical care in diabetes,2017. Diabetes Care.2017:40 (suppl 1):S1-S135. us Boris Al MD LAB BLOOD ORDERABLES Final R esult [facility] [address] [place] [address] from Last 3 Months Insurance [employer] MEDICARE Advance Directives * Full Code (Latest Code Status on File) Date Activated Date Inactivated Comments 12/17/2024 3:05 PM 12/21/2024 2:06 PM Question Answer Comments Patient has decision-making capacity? Yes Care Teams Tufting Machine Operator Single Needle Relationship Specialty Start Date End Date Marge Woodard MD [address] [place] [address] PCP - General 10/31/24 Shiela Vela APRN [address] [place] [address] Referring Physician 10/31/24
--- OUTSIDE RECORDS SUMMARY | 2025-02-11 09:31 | XMS_ITS | Clinical Summary ---
Author Organization [facility] Address [address] [place] [address] Care Team Providers Care Environmental Advisor Name Role Phone Marge Woodard MD Primary Care Provider Shady Knapp MD Unavailable [phone] Sylwia Taylor MD Unavailable Lavonne Handley NP Unavailable Tashi Perez DO Unavailable [phone] Allergies Active Allergy Reactions Criticality Noted Date Comments Adhesive Rash High 03/19/2010 States allergic to silk tape Hymenoptera Allergenic Extract Anaphylaxis High 03/19/2010 Short of breath,wheezing venoms of the honeybee and the common yellow jacket Empagliflozin 09/28/2022 Dizziness, falls Niacin 03/16/2010 hives Poison [place] Extract Other (See Comments) High 010 State allergic to poison austen weed-causes blisters,oozing. Medications albuterol (PROVENTIL) 2.5 mg /3 mL (0.083 %) nebulization Take 2.5 mg by inhalation every 6 hours as needed. Active loratadine (CLARITIN) 10 mg tablet Take 10 mg by mouth daily as needed. Active OXcarbazepine 600 mg Tablet Sustained Release 24 hr Take 1,200 mg by mouth daily. 09/02/19 22 Active prochlorperazin e (COMPAZINE) 10 mg tablet Take 10 mg by mouth every 6 hours as needed. Active QUEtiapine (SEROQUEL) 200 mg Tablet Take 200 mg by mouth nightly at bedtime. Active rOPINIRole (REQUIP) 4 mg Tablet Take 5 mg by mouth daily. Active traZODone (DESYREL) 100 mg tablet Take 100 mg by mouth nightly at bedtime. Active aspirin 81 mg Tablet, Delayed Release (E.C.) Take 1 Tablet (81 mg) by mouth daily. 100 Tablet 2 1:29 PM EDT 02/25/20 Active fluticasone propion-salmete roL (Advair Diskus) 250-50 mcg/Puff inhaler Take 1 Puff by inhalation 2 times daily. 60 Each 2 1:29 PM EDT 02/24/20 22 Active umeclidinium (Incruse Ellipta) 62.5 mcg/actuation Disk with Device Take 1 Puff by inhalation daily. 90 Each 3 2 1:29 PM EDT 02/24/20 22 Active atorvastatin (LIPITOR) 80 mg Tablet Take 1 Tablet by mouth nightly at bedtime. 90 Tablet 3 03/02/20 22 Active Additional Information Patient taking differently: 40 mgOral AT BEDTIME, Reported on 09/08/2023 spironolactone (ALDACTONE) 25 mg tablet Take 1 Tablet by mouth daily. 90 Tablet 3 03/02/20 22 Active atropine sulfate (ATROPINE PO) Take 2.5 mg by mouth 3 times daily. Active diphenoxylate-a tropine (LOMOTIL) 2.5-0.025 mg per tablet Take 1 Tablet by mouth 3 times daily as needed. 02/22/20 23 Active fluticasone propionate (FLONASE) 50 mcg/actuation nasal spray daily as needed. 12/21/19 23 Active sertraline (ZOLOFT) 25 mg tablet Take 25 mg by mouth daily. Active triamcinolone (KENALOG) 0.1 % cream APPLY A THIN LAYER TO THE AFFECTED AREA(S) TWICE DAILY NEEDED. 12/21/19 23 Active furosemide (LASIX) 40 mg tabletIndicatio ns:Chronic obstructive pulmonary disease with (acute) exacerbation (CMS/HCC),HFrEF (heart failure with reduced ejection fraction) (CMS/HCC) Take daily for 5 days then take as needed for weight gain 30 Tablet 11 03/07/20 Active LORazepam (ATIVAN) 0.5 mg tablet 02/15/20 Active sacubitriL-vals graciela (Entresto) 24-26 mg Tablet Take 1 Tablet by mouth 2 times daily. 60 Tablet 11 03/15/20 Active bisoprolol (ZEBETA) 5 mg tablet Take 1 Tablet (5 mg) by mouth nightly. 90 Tablet 3 04/08/20 Active metFORMIN (GLUCOPHAGE) 500 mg tablet Take 1 Tablet by mouth 2 times daily (with meals). 08/27/19 Active zonisamide (ZONEGRAN) 100 mg capsule Take 200 mg by mouth daily. Active rosuvastatin (CRESTOR) 40 mg Tablet Take 40 mg by mouth nightly. Discontinued fluticasone furoate (Arnuity Ellipta) 100 mcg/actuation Disk with Device Take 2 Puffs by inhalation daily. 90 Each 3 02/25/20 22 022 Discontinued umeclidinium-vi lanteroL (Anoro Ellipta) 62.5-25 mcg/actuation Disk with Device Take 1 Puff by inhalation daily. 180 Each 3 02/25/20 22 Discontinued Active Problems Problem Noted Date Diagnosed Date Severe mitral valve regurgitation 10/03/2023 Severe mitral regurgitation 08/03/2023 Malignant neoplasm of right lung (CMS HCC) [place] 03/15/2023 Chronic obstructive pulmonar y disease with (acute) exacerbation 03/07/2023 Coronary artery disease invo lving [place] coronary artery of [place] heart without angina pectoris 07/01/2022 Assessment & Plan (09/28/2022 9:20 AM EDT): Images from the original note were not included. -->aspirin, statin Assessment & Plan (07/01/2022 8:22 AM EST): Images from the original note were not included. -->aspirin, statin Nonrheumatic mitral valve regurgitation 07/01/19 Assessment & Plan (09/28/2022 9:19 AM EDT): -Severe MR by TTE January 2022. More ischemic than functional MR. 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 There is tethering of the posterior MV [...] She has probable RCA territory infarct and SPEECH AND HEARING CLINIC DIRECTOR-RCA. There is tethering of the posterior MV [...] TTE LVEF 40-45% Jan 2022 CAD = SPEECH AND HEARING CLINIC DIRECTOR RCA Jan 2022 GDMT = BB, ARNi, MRA. Intolerance to SGLT2i (dizziness and falls) Vol status = euvolemic ECG = NSR with LBBB < 150 ms -->BB, ARNi, MRA Assessment & Plan (07/01/2022 8:49 AM EST): Stage C, NYHA III (2/2 to lungs and cardiac limitation) TTE LVEF 40-45% Jan 2022 CAD = SPEECH AND HEARING CLINIC DIRECTOR RCA Jan 2022 GDMT = BB, ARNi, MRA Vol status = euvolemic ECG = NSR with LBBB < 150 ms -->BB, ARNi, MRA -->add SGLT2i today. Check BMP today Hypoxia 02/17/2022 Chronic systolic HF (heart failure) 02/16/2022 Overview (02/19/2022): Added automatically from request for surgery [id number] Consolidation of right lower lobe of lung 2020 Anxiety 08/11/2017 CKD (chronic kidney disease) 08/11/2017 Bipolar affective disorder 08/11/2017 Diabetes mellitus 08/11/2017 Hyperlipidemia 08/11/2017 S/P total knee replacement, left 08/11/2017 Tobacco abuse 08/11/2017 Seizures 11/27/2012 Overview (02/17/2022): ICD-10 Transition Resolved Problems Problem Noted Date Diagnosed Date Resolved Date Acute respiratory failure with hypoxia 02/17/2022 04/16/2022 Family History Medical History Relation Name Comments Heart Failure Brother sylwia Heart Problems Brother sylwia Heart Failure Father sylwia Heart Problems Father sylwia Anesthesia Complications Neg Hx Relation Name Status Comments Brother sylwia Father sylwia Social History Tobacco Use Types Packs/Day Years Used Date Smoking Tobacco: Every Day Cigarettes 0.5 42.7 Started: 1979; Last attempted to quit: 02/04/2022 Smokeless Tobacco: Never Tobacco Cessation:Ready to Q uit: Not Asked; Counseling Given: Not Answered Comments:4 or 5 cigarettes a day on [...] Sign Reading Time Taken Comments Blood Pressure 108/64 09/08/2023 2:04 PM EDT Pulse 77 09/08/2023 2:04 PM EDT Temperature 36.6 C (97.8 F) 08/24/2023 11:15 AM EDT Respiratory Rate 14 08/24/2023 4:30 PM EDT Oxygen Saturation 93% 08/24/2023 4:30 PM EDT Inhaled Oxygen Concentration - - Weight 81.6 kg (180 lb) 10/03/2023 9:48 AM EDT Height 162.6 cm (5' 4 ) 10/03/2023 9:48 AM EDT Body Mass Index 30.9 10/03/2023 9:48 AM EDT Plan of Treatment Upcoming Encounters Date Type Department Care Team (Late st Contact Info) Description 03/22/2025 8:40 AM EDT Appointment [facility], [place] [address] [facility] [address] [place] [address] Tashi Perez, DO [address] [place] [address] Health Maintenance Due Date Last Done Comments Cologuard 1964 Colonoscopy 1964 Colorectal Cancer Screening 1964 Diabetes A1c Monitoring 1964 Diabetes Mellitus Eye Exam (Yearly) 1964 Diabetes Mellitus Foot Care (Yearly) 1964 FIT 1964 Tobacco Cessation Counseling 1976 Pneumococcal Vaccine: 50+ Ye ars (1 of 2 - PCV) 1983 Hepatitis C Virus (HCV) Screening 1985 Breast Cancer Screening 2014 Zoster-RZV(Shingrix) (1 of 2) 2014 Diabetes Mellitus Microalbum in (Yearly) 05/30/2024 Renal Monitoring 05/30/2024 09/08/2023, , 07/07/2023, Additional history exists RSV Vaccines (1 - Risk 60-74 years 1-dose series) 2024 Lipid Monitoring 08/23/2024 08/24/2023 COVID-19 Vaccine (1 - 2023-2 5 season) 2025 Influenza Vaccination (#1) 2025 Tetanus Vaccination (Every 1 0 Years) 07/19/2032 07/19/2022, 03/10/2012 Lung Cancer Screening Discontinued 07/13/2022 , 02/17/2022, 11/10/2020 Lipid Screening Discontinued 08/24/2023 Procedures Procedure Name Priority Date/Time Associated Diagnosis Comments RENAL PROFILE STAT 09/08/2023 2:43 PM EDT Decreased urination Urgency of urination LIPID PROFILE Routine 08/24/2023 9:[address]-CHEST W/O CONTRAST Routine 02/17/2022 3:17 PM EDT from Last 3 Months or Most Recently Relevant to Health Maintenance Results * (ABNORMAL) RENAL PROFILE (09/08/2023 2:43 PM EDT) Sodium 141 135 - 146 mmol/L [facility] Potassium 5.0 3.5 - 5.1 mmol/L [facility] Chloride 113(H) 98 - 110 mmol/L [facility] CO2 20(L) 22 - 29 mmol/L [facility] Anion Gap 8 5 - 13 mmol/L [facility] Comment:Anion gap calculatio n does not include potassium (K+) value. BUN 20 7 - 25 mg/dL [facility] Creatinine 0.86 0.50 - 1.20 mg/dL [facility] Glucose 92 71 - 99 mg/dL [facility] Comment:Reference range (71- 99 mg/dL) refers only to fasting samples, and does not apply to non-fasting samples. eGFR CKD-EPI 2020 78 See Note [facility] Comment: eGFR calculated with 2020 CKD-EPI equation using creatinine, patient's age and gender. Other factors, especially muscle mass, may affect accuracy and need to be considered. Patient values should be interpreted as a trend. The reference interval is >60 mL/min/1.73m2. 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 Final Result [facility] [address] [place] [address], [facility] * LIPID PROFILE (08/24/2023 9:04 AM EDT) Cholesterol 125 125 - 199 mg/dL [facility] Comment: TOTAL CHOLESTEROL INTERPRETATION: Less than 200 mg/dL Desireable 200-239 mg/dL Borderline Greater or Equal to 240 mg/dL High LDL Calculated 66 0 - 100 mg/dL [facility] Comment: LDL CHOLESTEROL INTERPRETATION: Less than 100 mg/dL Optimal 100-129 mg/dL Near optimal/above optimal 130-159 mg/dL Borderline High 160-189 mg/dL High Greater or Equal to 190 mg/dL Very High HDL 43 40 - 180 mg/dL [facility] Comment: HDL CHOLESTEROL INTERPRETATION: Less than 40 mg/dL Low Greater than 60 mg/dL Desirable Triglycerides 82 0 - 149 mg/dL [facility] Comment: TOTAL TRIGLYCERIDE INTERPRETATION: Less than 150 mg/dL Normal 150-199 mg/dL Borderline HIgh 200-499 mg/dL High Greater or Equal to 500 mg/dL Very High NONHDL Calculated 82 0 - 129 mg/dL [facility] Comment: NON-HDL INTERPRETATION: Less than 130 mg/dL Desirable 130-159 mg/dL Above Desirable 160-189 mg/dL Borderline High 190-219 mg/dL High Greater than or equal to 220 mg/dL Very High Plasma 08/24/2023 9:04 AM EDT 08/24/2023 9:43 AM EDT Ty Marquez MD CHEMISTRY ORDERABLES Final Resul t [facility] [address] * CT-CHEST W/O CONTRAST (02/17/2022 3:17 PM EDT) Anatomical Region Laterality Modality Chest Computed Tomogra phy 02/17/2022 4:16 PM EDT Impressions 02/17/2022 4:25 PM EDT IMPRESSION: 1. There is right perihilar consolidation. This results in some narrowing of the right bronchus intermedius. Findings are nonspecific and may represent some post radiation fibrosis in patient with clinical history of lung cancer. Recurrent tumor cannot entirely be excluded. Correlation with any outside chest CTs would be helpful to evaluate for interval change. PET/CT may be helpful to evaluate for any hypermetabolic neoplastic disease within this consolidation. 2. There are patchy bilateral alveolar groundglass opacities. Findings are nonspecific but can be seen with infectious pneumonitis including opportunistic versus nonopportunistic etiologies. Idiopathic interstitial pneumonias, acute alveolar disease and drug toxicities are differential considerations. 3. Moderate size layering right-sided pleural effusion. 4. No evidence of any thoracic lymphadenopathy. Signed By: Eliseo Wild 02/17/2022 4:[address] SCAN OF THE CHEST: CLINICAL HISTORY: Lymphadenopathy. Pleural effusion. History of stage IV lung cancer. TECHNIQUE: Noncontrast CT images of the chest were obtained. Up to date CT equipment and radiation dose reduction techniques were employed. COMPARISON: None FINDINGS: There are some consolidative changes identified about the right hilum which produce some narrowing of the right bronchus intermedius. There are patchy groundglass airspace opacity seen scattered throughout both lungs. There is a moderate size right-sided pleural effusion. No fibrosis is identified. Calcified granulomas identified within the left upper lobe. There is a left subclavian port catheter identified with its tip terminating in the SVC. No axillary, mediastinal or hilar lymphadenopathy is identified. There are some subcentimeter middle mediastinal and subcarinal lymph nodes. Images through the upper abdomen appear unremarkable. No osteolytic or osteoblastic lesions are identified. Procedure Note Eliseo Wild MD - 02/17/2022 CT SCAN OF THE CHEST: CLINICAL HISTORY: Lymphadenopathy. Pleural effusion. History of stage IVlung cancer. TECHNIQUE: Noncontrast CT images of the chest were obtained. Up to dateCT equipment and radiation dose reduction techniques were employed. COMPARISON: None FINDINGS: There are some consolidative changes identified about the righthilum which produce some narrowing of the right bronchus intermedius.There are patchy groundglass airspace opacity seen scattered throughoutboth lungs. There is a moderate size right-sided pleural effusion. Nofibrosis is identified. Calcified granulomas identified within the leftupper lobe. There is a left subclavian port catheter identified with its tipterminating in the SVC. No axillary, mediastinal or hilar lymphadenopathyis identified. There are some subcentimeter middle mediastinal andsubcarinal lymph nodes. Images through the upper abdomen appear unremarkable. No osteolytic or osteoblastic lesions are identified. IMPRESSION: 1. There is right perihilar consolidation. This results in some narrowingof the right bronchus intermedius. Findings are nonspecific and mayrepresent some post radiation fibrosis in patient with clinical history oflung cancer. Recurrent tumor cannot entirely be excluded. Correlation withany outside chest CTs would be helpful to evaluate for interval change.PET/CT may be helpful to evaluate for any hypermetabolic neoplasticdisease within this consolidation. 2. There are patchy bilateral alveolar groundglass opacities. Findings arenonspecific but can be seen with infectious pneumonitis includingopportunistic versus nonopportunistic etiologies. Idiopathic interstitialpneumonias, acute alveolar disease and drug toxicities are differentialconsiderations. 3. Moderate size layering right-sided pleural effusion. 4. No evidence of any thoracic lymphadenopathy. Signed By: Eliseo Wild Ishaan Drew MD IMG CT ORDERABLES Final Resu lt from Last 3 Months or Most Recently Relevant to Health Maintenance Insurance [employer] MEDICARE Advance Directives For more information, please contact: [phone] * Full Code (Latest Code Status on File) Date Activated Date Inactivated Comments 08/24/2023 3:43 PM No automated c hest compression devices for VAD Patients * DNR Date Activated Date Inactivated Comments 02/17/2022 12:08 PM 08/24/2023 8:52 AM * Full Code Date Activated Date Inactivated Comments 02/17/2022 1:09 AM 02/17/2022 12:08 PM No automate d chest compression devices for VAD Patients Care Teams Environmental Advisor Relationship Specialty Start Date End Date Marge Woodard MD [address] [place] [id number] PCP - General Family Medicine 02/16/22 Shady Knapp MD [address] [place] [address] Internal Medicine 02/17/22 Sylwia Taylor MD [address] [place] [address] [place] [address] Interventional Cardiology 02/23/22 Lavonne Handley NP [address] [place], [place] [id number] Nurse Practitioner Nurse Practitioner 03/02/22 Tashi Perez DO [address] [place] [address] Advanced Heart Failure/Transplant 07/01/22
--- OUTSIDE RECORDS SUMMARY | 2025-02-11 09:32 | XMS_ITS | Clinical Summary ---
Author Organization [facility] Address [address] [facility], [address] [place] [address] Care Team Providers Care Side Sawyer Name Role Phone Marge Woodard MD Primary Care Provider [phone] Allergies Active Allergy Reactions Criticality Noted Date Comments Adhesive Rash High 03/19/2010 States allergic to silk tape Hymenoptera Allergenic Extract Anaphylaxis High 03/19/2010 Short of breath,wheezing Niacin 03/16/2010 hives Poison Austen Extract Other (See Comments) High 010 State allergic to poison austen weed-causes blisters,oozing. Medications rosuvastatin (CRESTOR) 40 mg tablet Take 40 mg by mouth nightly. Active duloxetine (CYMBALTA) 60 mg capsule Take by mouth daily. Active ropinirole (REQUIP) 2 mg tablet Take 2 mg by mouth nightly. Active QUEtiapine (SEROQUEL) 50 mg Oral Tablet Take 100 mg by mouth nightly. Active Venlafaxine (EFFEXOR) 225 mg Oral Tablet Extended Rel 24 hr Take 225 mg by mouth nightly. Active metFORMIN (GLUCOPHAGE) 500 mg Oral Tablet Take 500 mg by mouth 2 times daily. Active traZODone (DESYREL) 100 mg Oral Tablet Take 100 mg by mouth nightly. Active Aspirin 325 mg Oral Tablet, Delayed Release (E.C.) Take 1 Tab by mouth 2 times daily. 56 Tab 03/15/201 8 Active Additional Information Patient not taking.Reported on 10/11/2019 acetaminophen (TYLENOL) 500 mg Oral Tablet Take 2 Tabs by mouth every 8 hours as needed. 60 Tab 8 Active Additional Information Patient not taking.Reported on 08/26/2017 oxyCODONE (ROXICODONE) 5 mg Oral Tablet Take 1-2 Tabs by mouth every 8 hours as needed for Pain. 60 Tab 8 Active Additional Information Patient not taking.Reported on 10/11/2019 tiZANidine (ZANAFLEX) 2 mg Oral Tablet Take 2 Tabs by mouth every 8 hours as needed for Other (muscle relaxant). 60 Tab 8 Active Additional Information Patient not taking.Reported on 10/11/2019 traMADol (ULTRAM) 50 mg Oral Tablet Take 1-2 Tabs by mouth every 8 hours as needed for Pain. 60 Tab 8 Active Additional Information Patient not taking.Reported on 10/11/2019 mirtazapine (REMERON) 15 mg Oral Tablet Take 15 mg by mouth nightly. 2 8 Active OLANZapine (ZYPREXA) 5 mg Oral Tablet 8 Active Active Problems Problem Noted Date Diagnosed Date Tobacco abuse 08/11/2017 S/P total knee replacement, left 08/11/2017 HLD (hyperlipidemia) 08/11/2017 Diabetes mellitus 08/11/2017 CKD (chronic kidney disease) 08/11/2017 Depression 08/11/2017 Seizures 08/11/2017 Bipolar affective disorder 08/11/2017 Anxiety 08/11/2017 Surgical History Surgery Date Site/Laterality Comments KNEE SURGERY right INCISIONAL HERNIA REPAIR x20 abdominal HYSTERECTOMY HERNIA REPAIR LAPAROSCOPY multiple for scar tissue COLONOSCOPY TOTAL KNEE ARTHROPLASTY 03/15/2017 Right RIGHT TOTAL KNEE REPLACEMENT ; Surgeon: Augustin Khalil MD; Location: [facility]; Service: Orthopedics Medical devices from this surgery are in the Medical Devices section. TOTAL KNEE ARTHROPLASTY 08/11/2017 Left LEFT TOTAL KNEE REPLACEMENT; Surgeon: Augustin Khalil MD; Location: [facility]; Service: Orthopedics Medical devices from this surgery are in the Medical Devices section. Medical History Medical History Date Comments Chronic pain Arthritis Hyperlipidemia Depression Chronic kidney disease stents x 4 for adhesions Heart murmur as Diverticulitis Post-operative nausea and vomiting Diabetes mellitus (HCC) Bipolar disorder (HCC) Family History Medical History Relation Name Comments Unknown Brother 1 Arthritis Father Heart Disease Father Anesth Problems Neg Hx Relation Name Status Comments Brother 1 Brother 2 Alive Brother 3 Alive Brother 4 Alive Father Mother Alive Social History Tobacco Use Types Packs/Day Years Used Date Smoking Tobacco: Every Day Cigarettes 1 50.5 Started: 07/29/1974 Smokeless Tobacco: Never Tobacco Cessation:Ready to Q uit: No Alcohol Use Standard Drinks/Week Comments No 0 (1 standard drink = 0.6 oz pur e alcohol) Comments No Sex and Gender Information Value Date Recorded Sex Assigned at Not on file Legal Sex Female 1:30 PM EDT Gender Identity Not on file Sexual Orientation Not on file Obstetrics History Para Term AB IAB SAB Ectopic Multiple Livin g Live Births 4 3 Date Outcome GA Total Labor Labor/2nd/3rd Weight Sex Type Anes PTL Laura A1 A5 Name Clin Para Para Para Last Filed Vital Signs Vital Sign Reading Time Taken Comments Blood Pressure 138/82 10/11/2019 11:21 AM EDT Pulse 85 10/11/2019 11:21 AM EDT Temperature 36.1 C (97 F) 10/11/2019 11:21 AM EDT Respiratory Rate 16 10/11/2019 11:21 AM EDT Oxygen Saturation 98% 08/27/2017 7:42 AM EDT Inhaled Oxygen Concentration - - Weight 81.6 kg (180 lb) 10/11/2019 11:21 AM EDT Height 163.8 cm (5' 4.5 ) 10/11/2019 11:21 AM ED T Body Mass Index 30.42 10/11/2019 11:21 AM EDT Plan of Treatment Health Maintenance Due Date Last Done Comments Wellness Exam Medicare 1967 Lipids 1974 Diabetic Eye Exam 1982 Hepatitis C Screening 1982 Kidney Health: uACR 1982 DTaP/TDaP/Td (1 - Tdap) 1983 Pneumococcal Vaccine 50+ (1 of 2 - PCV) 1983 Cervical Cancer Screening 1985 Pap Smear 1985 HPV/Pap Cotest 1994 Breast Cancer Screening 2004 Cologuard 2009 Colon Cancer Screening 2009 Colonoscopy 2009 FIT 2009 Sigmoidoscopy 2009 Virtual Colonography 2009 Low Dose Lung Cancer Screening 2014 Zoster (1 of 2) 2014 Hemoglobin A1c 02/02/2018 08/02/2017 Kidney Health: eGFR 08/25/2018 08/25/2017, 08/12/2017, 08/02/2017, Additional history exists COVID-19 Vaccine ( season) 2025 Influenza Vaccine (#1) 2025 Hepatitis B Vaccine Aged Out No longe r eligible based on patient's age to complete this topic Meningococcal B Vaccine Aged Out No l onger eligible based on patient's age to complete this topic Medical Devices Implanted Type Area Claim Examiner Device Identifier Shelf Expiration Date Model / Serial / Lot Kidney Stents Component Femoral Cr Triathlon #4 Right - [id number] Implanted:Qty: 1 on 03/15/2017 by Augustin Khalil MD at [facility] Right: Knee PASCALE:ORTHOPEDI CS 01/12/2022 5517-F-402 / / [id number] Baseplate Tibial Tritanium Triathlon Size 4 - [id number] Implanted:Qty: 1 on 03/15/2017 by Augustin Khalil MD at [facility] Right: Knee PASCALE:ORTHOPEDI CS 02/23/2022 5536-B-400 / / [id number] Patella Backed Metal Tritanium Asymmetric A 35 X 10 - [id number] Implanted:Qty: 1 on 03/15/2017 by Augustin Khalil MD at [facility] Right: Knee PASCALE:ORTHOPEDI CS 10/25/2021 5552-L-[id number] / / [id number] Insert Bearing Tbial Cs Triathlon X3 Sz 4-9mm - [id number] Implanted:Qty: 1 on 03/15/2017 by Augustin Khalil MD at [facility] Right: Knee PASCALE:ORTHOPEDI CS 11/20/2021 5531-G-[id number] / / [id number] Triathlon Cr Fem Component - Beaded W/Pa - [id number] Implanted:Qty: 1 on 08/11/2017 by Augustin Khalil MD at [facility] Left: Knee PASCALE:ORTHOPEDI 04/24/2022 5517-F-[id number] / / [id number] Patella Backed Metal Tritanium Asymmetric A 35 X 10 - [id number] Implanted:Qty: 1 on 08/11/2017 by Augustin Khalil MD at [facility] Left: Knee PASCALE:ORTHOPEDI 02/23/2022 5552-L-350 / / [id number] Triathlon Tritanium Baseplate Size 4 - [id number] Implanted:Qty: 1 on 08/11/2017 by Augustin Khalil MD at [facility] Left: Knee PASCALE:ORTHOPEDI 05/14/2022 5536-B-[id number] / / [id number] Insert Bearing Tbial Cs Triathlon X3 Sz 4-9mm - [id number] Implanted:Qty: 1 on 08/11/2017 by Augustin Khalil MD at [facility] Left: Knee PASCALE:ORTHOPEDI 12/09/2021 [id number] / / [id number] Procedures Procedure Name Priority Date/Time Associated Diagnosis Comments BASIC METABOLIC PANEL STAT 08/25/2017 10:23 PM EDT HEMOGLOBIN A1C Routine 08/02/2017 10:36 AM EST Hyperglycemia from Last 3 Months or Most Recently Relevant to Health Maintenance Results * (ABNORMAL) BASIC METABOLIC PANEL (08/25/2017 10:23 PM EDT) Sodium 138 136 - 145 mmol/L 08/25/2017 10:53 PM EDT [facility] Potassium 4.4 3.5 - 5.0 mmol/L 08/25/2017 10:53 PM EDT [facility] Chloride 103 98 - 107 mmol/L 08/25/2017 10:53 PM EDT [facility] Total CO2 24 22 - 29 mmol/L 08/25/2017 10:53 PM EDT [facility] Anion Gap 11 7 - 16 mmol/L 08/25/2017 10:53 PM EDT [facility] Calcium 8.7 8.6 - 10.2 mg/dL 08/25/2017 10:53 PM EDT [facility] Glucose Lvl 101(H) 74 - 100 mg/dL 08/25/2017 10:53 PM EDT [facility] BUN 14 6 - 20 mg/dL 08/25/2017 10:53 PM EDT [facility] Creatinine 0.85 0.51 - 1.30 mg/dL 08/25/2017 10:53 PM EDT [facility] GFR Afr Am 90 mL/min/1.7 3 m2 08/25/2017 10:53 PM EDT [facility] GFR Non Afr Am 78 mL/min/1.7 3 m2 08/25/2017 10:53 PM EDT [facility] Comment: GFR Afr Am and GFR Non Afr Am calculated using CKD-EPI equation. GFR Category GFR(mL/min/1.73 m ) Kidney Function G1 >=90 Normal or high G2 60-89 Mildly decreased G3a 45-59 Mildly to moderately decreased G3b 30-44 Moderately to severely decreased G4 15-29 Severely decreased G5 <15 Kidney Failure Blood VENOUS BLOOD / Unknown Venipuncture / Unknown 08/25/2017 10:23 PM EDT 08/25/2017 10:34 PM EDT us Cuco Salvador MD CHEMISTRY ORDERABLES Final Resul t [facility] [address] [place] [id number] * HEMOGLOBIN A1C (08/02/2017 10:36 AM EST) Hgb A1C 6.2 <=7.0 % 08/02/2017 4:11 PM EST [facility] Est. Avg Glucose 131 mg/dL 08/02/2017 4:11 PM EST [facility] Blood VENOUS BLOOD / Unknown Venipuncture / Unknown 08/02/2017 10:36 AM EST 08/02/2017 10:48 AM EST Narrative [facility] - 08/02/2017 4:11 PM EST Reference Interval for Hgb A1c Hgb A1c Interpretation < 6.0 Non-Diabetic Range 6.0 - 7.0 ADA Therapeutic Target > 7.0 Action suggested us Augustin Khalil MD CHEMISTRY ORDERABLES Final R esult [facility] [address] [place] [address] from Last 3 Months or Most Recently Relevant to Health Maintenance Insurance MEDICARE [place] PART A AND B [facility] MEDICARE [place] PART A AND B [facility] [address] [facility] WELLCARE HMO MEDICARE [place] * Guarantor: Beverley Antoine Account Type Relation to Patient Date of Phone Billing Address [place] Personal Family Self Advance Directives For more information, please contact: [phone] * Full Code (Latest Code Status on File) Date Activated Date Inactivated Comments 08/11/2017 12:30 PM 08/12/2017 3:57 PM * Full Code Date Activated Date Inactivated Comments 03/15/2017 1:23 PM 03/16/2017 10:17 PM Care Teams Side Sawyer Relationship Specialty Start Date End Date Marge Woodard MD [address] [place] [address] PCP - General 07/02/09
--- OUTSIDE RECORDS SUMMARY | 2025-02-11 09:32 | XMS_ITS | Encounter Summary ---
Author Organization [facility] Address [address] [place] [address] Care Team Providers Care Management Professor Name Role Phone Marge Woodard MD Primary Care Provider [phone] Shady Knapp MD Unavailable Loyd Taylor MD Unavailable Lavonne Handley NP Unavailable Tashi Perez DO Unavailable [phone] Encounter Details Date Type Department Care Team (Latest Contact Info) Description 10/03/2023 Preop Surgical Orders [facility] [address] [place] [address] Medical Office Building [address] [place] [address] CenterLanie RN Severe mitral valve regurgitation (Primary Dx) Social History Tobacco Use Types [...] Description 03/22/2025 8:40 AM EDT Appointment [facility] Physicians - Heart & Vascular, [place] [address] [facility] [address] [place] [address] Tashi Perez DO [address] [place] [id number] documented as of this encounter Visit Diagnoses Diagnosis Severe mitral valve regurgitation- Primary documented in this encounter Care Teams Management Professor Relationship Specialty Start Date End Date Marge Woodard MD [address] [place] [address] PCP - General Family Medicine 02/16/22 [place] [address] [place], [place] [address]e. Room [address] [place] [address] Internal Medicine 02/17/22 Loyd Taylor MD [address] [place] [address] [place] [address] Interventional Cardiology 02/23/22 Lavonne Handley NP [address] [place] [address] [place] [address] Nurse Practitioner Nurse Practitioner 03/02/22 Tashi Perez DO [address] [place], [place] [address] Advanced Heart Failure/Transplant 07/01/22 documented as of this encounter
--- OUTSIDE RECORDS SUMMARY | 2025-02-11 09:32 | XMS_ITS | Encounter Summary ---
Author Organization [facility] Address [address] [place] [address] Care Team Providers Care Environmental Engineering Professor Name Role Phone Marge Woodard MD Primary Care Provider [phone] Shiela Vela RESEARCH ASSISTANT Unavailable [phone] Encounter Details Date Type Department Care Team (Latest Contact Info) Description 12/21/2024 Travel Social History Tobacco Use Types Packs/Day [...] any time in the past 12 m [facility], were you homeless or living in a skilled nursing (including now)? No 12/18/2024 Utilities Answer Date [...] documented as of this encounter Care Teams Environmental Engineering Professor Relationship Specialty Start Date End Date Marge Woodard MD [address] [place] [address] PCP - General 10/31/24 Shiela Vela APRN [address] [place], [place] [id number] Referring Physician 10/31/24 documented as of this encounter
--- OUTSIDE RECORDS SUMMARY | 2025-02-11 09:32 | XMS_ITS | Encounter Summary ---
Author Organization Healthcare Address [address] [place] [address] Care Team Providers Care Export Sales Assistant Name Role Phone Marge Woodard MD Primary Care Provider [phone] Shiela Vela PICK UP ATTENDANT Unavailable [phone] Encounter Details Date Type Department Care Team (Late st Contact Info) Description 12/14/2024 Orders Only [facility] [address], [address] [place] [address] Provider, [place] [address] [place] [id number] Social History Tobacco Use Types Packs/Day Years [...] any time in the past 12 m [facility], were you homeless or living in a fdc (including now)? No 12/18/2024 Utilities Answer Date [...] Month) No 12/17/2024 9:00 PM EDT Matt Mane, RN 6. Suicidal Behavior (Lifetime) No 5 9:00 PM EDT Matt Mane, RN documented as of this encounter Plan of Treatment Not on file documented as of this encounter Procedures Procedure Name Priority Date/Time Associated Diagnosis Comments APTT Routine 12/14/2024 4:42 PM EDT documented in this encounter Results * APTT (12/14/2024 4:42 PM EDT) Blood Venous blood specimen / Unknown us Historical Provider LAB BLOOD ORDERABLES Final R esult documented in this encounter Visit Diagnoses Not on filedocumented in this encounter Additional Health Concerns Assessment Noted Time A fall risk assessment has been complete d for the patient 12/13/2024 11:24 AM EDT A Body Mass Index follow-up plan has been documented for the patient 12/13/2024 11:50 AM EDT documented as of this encounter Care Teams Export Sales Assistant Relationship Specialty Start Date End Date Marge Woodard MD [address] [place] [address] PCP - General 10/31/24 Shiela Vela APRN [address] [place] [address] Referring Physician 10/31/24 documented as of this encounter
--- OUTSIDE RECORDS SUMMARY | 2025-02-11 09:32 | XMS_ITS | Encounter Summary ---
Author Organization Healthcare Address [address] [place] [address] Care Team Providers Care Activities Volunteer Name Role Phone Marge Woodard MD Primary Care Provider [phone] Shiela Vela TIRE SETTER Unavailable [phone] Encounter Details Date Type Department Care Team (Late st Contact Info) Description 01/02/2025 Orders Only [facility] [address], [address] [place] [address] Lubna Mena S, TIRE SETTER [address] [place] [address] Social History Tobacco Use Types Packs/Day Years [...] were you homeless or living in a intermediate (including now)? No 12/18/2024 Utilities Answer Date [...] documented as of this encounter Care Teams Activities Volunteer Relationship Specialty Start Date End Date Marge Woodard MD [address] [place] [address] PCP - General 10/31/24 Shiela Vela APRN [address] [place] [address] Referring Physician 10/31/24 documented as of this encounter
--- OUTSIDE RECORDS SUMMARY | 2025-02-11 09:32 | XMS_ITS | Encounter Summary ---
Author Organization [facility] Address [address] [place] [address] Care Team Providers Care Disc Ruler Operator Name Role Phone Marge Woodard MD Primary Care Provider [phone] Shiela Vela ENRICHMENT TEACHER Unavailable [phone] Encounter Details Date Type Department Care Team (Latest Contact Info) Description 12/20/2024 Travel Social History Tobacco Use Types Packs/Day [...] any time in the past 12 m [facility], were you homeless or living in a jail (including now)? No 12/18/2024 Utilities Answer Date [...] Author No Risk Indicated 12/20/2024 8:00 AM CIARAT Lena Nicolas RN * Question Answer Date of Assessment Author 1. Wish to be (Past 1 Month) No 12/20/2024 8:00 AM CIARAT Lena Nicolas RN 2. Non-Specific Active Suici jorge Thoughts (Past 1 Month) No 12/20/2024 8:00 AM CIARAT Alka Nicolas RN 6. Suicidal Behavior (Lifetime) No 8:00 AM CIARAT Lena Nicolas RN documented as of this encounter Plan [...] documented as of this encounter Care Teams Disc Ruler Operator Relationship Specialty Start Date End Date Marge Woodard MD [address] [place] [address] PCP - General 10/31/24 Shiela Vela APRN [facility] [place] [address] Referring Physician 10/31/24 documented as of this encounter
--- OUTSIDE RECORDS SUMMARY | 2025-02-11 09:32 | XMS_ITS | Encounter Summary ---
Author Organization [facility] Address [address] [place] [address] Care Team Providers Care Labourers Name Role Phone Marge Woodard MD Primary Care Provider [phone] Shiela Vela MECHANICAL HANDYMAN Unavailable [phone] Encounter Details Date Type Department Care Team (Latest Contact Info) Description 12/19/2024 Travel Social History Tobacco Use Types Packs/Day [...] any time in the past 12 m [facility], were you homeless or living in a longterm (including now)? No 12/18/2024 Utilities Answer Date [...] documented as of this encounter Care Teams Labourers Relationship Specialty Start Date End Date Marge Woodard MD [address] [place] [address] PCP - General 10/31/24 Shiela Vela APRN [address] [place], [place] [address] Referring Physician 10/31/24 documented as of this encounter
--- OUTSIDE RECORDS SUMMARY | 2025-02-11 09:32 | XMS_ITS | Encounter Summary ---
Author Organization Healthcare Address [address] [place] [address] Care Team Providers Care Razor Sharpener Name Role Phone Marge Woodard MD Primary Care Provider [phone] Shiela Vela DIRECTOR OF FIRST IMPRESSIONS Unavailable [phone] Encounter Details Date Type Department Care Team (Late st Contact Info) Description 12/25/2024 Telephone PAV A Inpatient [address] [place] [address] Shiela Branch, RN CV TELE-PROGRESSIVE Social History Tobacco Use Types Packs/Day Years [...] the money to buy more. Never true 07/22/20 25 Within the past 12 months, t [...] any time in the past 12 m [facility], were you homeless or living in a group home (including now)? No 12/18/2024 Utilities Answer Date [...] on file documented as of this encounter Miscellaneous Notes * Nursing Note - Shiela Branch RN - 12/25/2024 2:11 PM EDT Patient called NN with c/o blood pressure consistently running around 90/60 as well as a 4 lb weight gain in 1 day. NN spoke with Abdoul SAHA who advised NN to have patient hold her Nifedipine andMetoprolol for now and continue monitoring BP and HR. PA will also send in prescription for lasix. Patient voiced understanding and will call NN with any other issues. documented in this encounter Plan of Treatment [...] documented as of this encounter Care Teams Razor Sharpener Relationship Specialty Start Date End Date Marge Woodard MD [address] [place] [address] PCP - General 10/31/24 Shiela Vela APRN [address] [place] [address] Referring Physician 10/31/24 documented as of this encounter
--- OUTSIDE RECORDS SUMMARY | 2025-02-11 09:32 | XMS_ITS | Encounter Summary ---
Author Organization [facility] Address [address] [place] [address] Care Team Providers Care Stock Pitcher Name Role Phone Marge Woodard MD Primary Care Provider [phone] Shiela Vela JACQUARD LACE WEAVER Unavailable Encounter Details Date Type Department Care Team (Late st Contact Info) Description 12/13/2024 Orders Only [facility] Cardiothoracic [address], [address] [place] [address] Chastity Antunez RN [facility] LUNG [id number] [address] [place] [address] Coronary artery disease involving [place] heart, unspecified vessel or lesion type, unspecified whether angina present (Primary Dx); Pre-operative exam Social History Tobacco Use Types Packs/Day Years [...] as of this encounter Miscellaneous Notes * Progress Notes - Chastity Antunez RN - 12/13/2024 4:48 PM EDT PTT>200. Pt denies use of Heparin in port. Pt to get repeat PTT in am at local [facility], lab order faxed. documented in this encounter Plan of Treatment Scheduled Orders Name Type Priority Associated Diagnoses Orde r Schedule APTT Lab STAT Coronary artery disease involving [place] heart, unspecified vessel or lesion type, unspecified whether angina present Pre-operative exam Expected: 12/13/2024 (Approximate), Expires: 06/16/2026 documented as of this encounter Visit Diagnoses Diagnosis Coronary artery disease involving [place] heart, unspecified vessel or lesion type, unspecified whether angina present- Primary Pre-operative exam Unspecified pre-operative examination documented in this encounter Additional Health Concerns Assessment Noted Time A fall risk assessment has been complete d for the patient 12/13/2024 11:24 AM EDT A Body Mass Index follow-up plan has been documented for the patient 12/13/2024 11:50 AM EDT documented as of this encounter Care Teams Stock Pitcher Relationship Specialty Start Date End Date Marge Woodard MD [address] [place] [address] PCP - General 10/31/24 Shiela Vela APRN [address] [place] [address] Referring Physician 10/31/24 documented as of this encounter
--- OUTSIDE RECORDS SUMMARY | 2025-02-11 09:32 | XMS_ITS | Encounter Summary ---
Author Organization [facility] Address [address] [place] [address] Care Team Providers Care Area Operations Manager Name Role Phone Marge Woodard MD Primary Care Provider [phone] Shiela Vela WHIPPED TOPPING FINISHER Unavailable [phone] Encounter Details Date Type Department Care Team (Latest Contact Info) Description 12/18/2024 Travel Social History Tobacco Use Types Packs/Day [...] any time in the past 12 m [facility], were you homeless or living in a retirement (including now)? No 12/18/2024 Utilities Answer Date [...] Author No Risk Indicated 12/18/2024 8:00 PM EDT Lela Khan * Question Answer Date of Assessment Author 1. Wish to be (Past 1 Month) No 025 8:00 PM EDT Lela Khan 2. Non-Specific Active Suici jorge Thoughts (Past 1 Month) No 12/18/2024 8:00 PM EDT Larissa Khan en 6. Suicidal Behavior (Lifetime) No 5 8:00 PM EDT Lela Khan documented as of this encounter Plan of [...] documented as of this encounter Care Teams Area Operations Manager Relationship Specialty Start Date End Date Marge Woodard MD [address] [place] [address] PCP - General 10/31/24 Shiela Vela APRN [facility] [address] [address] Referring Physician 10/31/24 documented as of this encounter
--- OUTSIDE RECORDS SUMMARY | 2025-02-11 09:32 | XMS_ITS | Encounter Summary ---
Author Organization Healthcare Address [address] [place] [address] Care Team Providers Care Hog Ringer Name Role Phone Marge Woodard MD Primary Care Provider [phone] Shiela Vela DIRECTOR SPEECH AND HEARING Unavailable [phone] Encounter Details Date Type Department Care Team (Late st Contact Info) Description 12/31/2024 Orders Only [facility] [address], [address] [place] [address] Francisco Cates, PA [address] [place] [address] Social History Tobacco Use Types [...] any time in the past 12 m [facility], were you homeless or living in [...] documented as of this encounter Care Teams Hog Ringer Relationship Specialty Start Date End Date Marge Woodard MD [address] [place] [address] PCP - General 10/31/24 Shiela Vela APRN [address] [address] Referring Physician 10/31/24 documented as of this encounter
--- OUTSIDE RECORDS SUMMARY | 2025-02-11 09:32 | XMS_ITS | Encounter Summary ---
Author Organization [facility] Address [facility] [place] [id number] Care Team Providers Care Librarian Special Library Name Role Phone Marge Woodard MD Primary Care Provider [phone] Shiela Vela SUPERINTENDENT GAS DISTRIBUTION Unavailable [phone] Encounter Details Date Type Department Care Team (Latest Contact Info) Description 12/13/2024 Travel Social History Tobacco Use Types Packs/Day [...] documented as of this encounter Care Teams Librarian Special Library Relationship Specialty Start Date End Date Marge Woodard MD [address] [place] [address] PCP - General 10/31/24 Shiela Vela, SUPERINTENDENT GAS DISTRIBUTION [address] [place] [address] Referring Physician 10/31/24 documented as of this encounter
--- OUTSIDE RECORDS SUMMARY | 2025-02-11 09:33 | XMS_ITS | Encounter Summary ---
Author Organization [facility] Address [address] [place] [address] Care Team Providers Care Certified Performance Technologist Name Role Phone Marge Woodard MD Primary Care Provider [phone] Shady Knapp MD Unavailable Loyd Taylor MD Unavailable Lavonne Handley NP Unavailable Tashi Perez DO Unavailable [phone] Reason for Visit * Reason Onset Date Comments Additional Information 2023 Encounter Details Date Type Department Care Team (Late st Contact Info) Description 2023 Telephone [facility] [address] [address] [place] [address] [place] [address] Additional Information Social History Tobacco Use Types Packs/Day Years [...] Description 03/22/2025 8:40 AM EDT Appointment [facility] Physicians - Heart & Vascular, Jewel Garcia [address] [facility] [address] [place] [address] Tashi Perez DO [address] [place] [id number] documented as of this encounter Visit Diagnoses Not on filedocumented in this encounter Care Teams Certified Performance Technologist Relationship Specialty Start Date End Date Marge Woodard MD [address] [place], [place] [id number] PCP - General Family Medicine 02/16/22 [place] [address] [place], [place] [address]e. Room [address] [place] [address] Internal Medicine 02/17/22 Loyd Taylor MD [address] [place] [address] [place] [address] Interventional Cardiology 02/23/22 Lavonne Handley NP [address] [place] [place] [address] [place] [address] Nurse Practitioner Nurse Practitioner 03/02/22 Tashi Perez DO [address] [place] [id number] Advanced Heart Failure/Transplant 07/01/22 documented as of this encounter
--- OUTSIDE RECORDS SUMMARY | 2025-02-11 09:33 | XMS_ITS | Encounter Summary ---
Author Organization [facility] Address [address] [place] [address] Care Team Providers Care Vice President Of Compliance Name Role Phone Marge Woodard MD Primary Care Provider [phone] Shiela Vela CONSTRUCTION SUPERINTENDENT Unavailable [phone] Encounter Details Date Type Department Care Team (Latest Contact Info) Description 01/17/2025 Travel Social History Tobacco Use Types Packs/Day [...] any time in the past 12 m [facility], were you homeless or living in a alf (including now)? No 12/18/2024 Utilities Answer Date [...] documented as of this encounter Care Teams Vice President Of Compliance Relationship Specialty Start Date End Date Marge Woodard MD [address] [place] [address] PCP - General 10/31/24 Shiela Vela APRN [address] [place], [place] [address] Referring Physician 10/31/24 documented as of this encounter
--- OUTSIDE RECORDS SUMMARY | 2025-02-11 09:33 | XMS_ITS | Encounter Summary ---
Author Organization Healthcare Address [address] [place] [id number] Care Team Providers Care Technical Coordinator Name Role Phone Marge Woodard MD Primary Care Provider [phone] Shiela Vela PATIENT ACCESS REPRESENTATIVE Unavailable [phone] Encounter Details Date Type Department Care Team (Late st Contact Info) Description 12/24/2024 Telephone [facility] [address] [facility] [address] [place] [address] Chastity Antunez RN [id number] [address] [place] [id number] Social History Tobacco Use Types Packs/Day Years [...] time in the past 12 m [facility], were you homeless or living in a penitentiary (including now)? No 12/18/2024 Utilities Answer Date [...] as of this encounter Miscellaneous Notes * Telephone Encounter - Chastity Antunez RN - 12/24/2024 9:55 AM EDT Requesting refill of oxycodone for c/o pain in LLE and chest, 12/06 with chest be more painful than leg. Pt reports bruising left thigh that is painful, had EVH SV from LLE. States the acetaminophen and methocarbamol do not relieve the pain. [facility] sent in by Dr Pedersen. Pt notified documented in this encounter Plan of Treatment [...] documented as of this encounter Care Teams Technical Coordinator Relationship Specialty Start Date End Date Marge Woodard MD [address] [place] [address] PCP - General 10/31/24 Shiela Vela APRN [address] [place] [address] Referring Physician 10/31/24 documented as of this encounter
--- OUTSIDE RECORDS SUMMARY | 2025-02-11 09:33 | XMS_ITS | Encounter Summary ---
Author Organization [facility] Address [address] [place] [address] Care Team Providers Care Medical Physics Researcher Name Role Phone Marge Woodard MD Primary Care Provider Shady Knapp MD Unavailable Loyd Taylor MD Unavailable Lavonne Handley NP Unavailable [phone] Tashi Perez DO Unavailable [phone] Reason for Visit * Reason Onset Date Comments Additional Information 06/06/2023 Regarding Encircle trial Encounter Details Date Type Department Care Team (Late st Contact Info) Description 06/06/2023 Telephone [facility] [address] [address] [place] [address] [place] [address] Additional Information (Regarding Encircle trial) Social History Tobacco Use Types Packs/Day Years [...] - Heart & Vascular, Jewel Garcia [address] [facility] [address] [place] [address] Tashi Perez DO [address] [facility] [place] [id number] documented as of this encounter Visit Diagnoses Not on filedocumented in this encounter Care Teams Medical Physics Researcher Relationship Specialty Start Date End Date Marge Woodard MD [address] [place] [address] PCP - General Family Medicine 02/16/22 Shady Knapp MD [address] [place], [place] [address]e. Room [address] [place] [address] Internal Medicine 02/17/22 Loyd Taylor MD [address] [place] [address] [place] [address] Interventional Cardiology 02/23/22 Lavonne Handley NP [address] [place] [address] [place] [address] Nurse Practitioner Nurse Practitioner 03/02/22 Tashi Perez DO 1954 [facility]. [address] [place] [id number] Advanced Heart Failure/Transplant 07/01/22 documented as of this encounter
--- OUTSIDE RECORDS SUMMARY | 2025-02-11 09:33 | XMS_ITS | Encounter Summary ---
Author Organization Healthcare Address [address] [place] [address] Care Team Providers Care Library Monitor Name Role Phone Marge Woodard MD Primary Care Provider [phone] Shiela Vela CASE LOADER OPERATOR Unavailable [phone] Encounter Details Date Type Department Care Team (Late st Contact Info) Description 01/18/2025 Orders Only [facility] Cardiothoracic [address] [place] [address] Andrew Paulson, PA [address] [place] [address] Social History Tobacco Use Types [...] documented as of this encounter Care Teams Library Monitor Relationship Specialty Start Date End Date Marge Woodard MD [address] [place] [address] PCP - General 10/31/24 Shiela Vela APRN [address] [place] [address] [address] [place] [address] Referring Physician 10/31/24 documented as of this encounter
--- OUTSIDE RECORDS SUMMARY | 2025-02-11 09:33 | XMS_ITS | Encounter Summary ---
Author Organization Healthcare Address [address] [place] [address] Care Team Providers Care Commercial Driver'S License Driver Name Role Phone Marge Woodard MD Primary Care Provider [phone] Shiela Vela CHOPPING MACHINE OPERATOR Unavailable [phone] Encounter Details Date Type Department Care Team (Late st Contact Info) Description 01/14/2025 Telephone [facility] [address] [place] [address] Shiela Branch, RN CV TELE-PROGRESSIVE Social History [...] any time in the past 12 m [facility], were you homeless or [...] Miscellaneous Notes * Nursing Note - Shiela Branch, RN - 01/14/2025 3:07 PM EDT Patient called NN with c/o pain in right chest area under breast. Patient states the pain gets worse when taking a deep breath, but patient is not sob. Patient has no clicking/rubbing in sternum, butsays the pain is making her bp increase. Today patients bp is 130s/90s. NN spoke with Kayy LOVING who advised patient to wait until clinic visit on to have a chest xray. INDER also recommended not re-starting nifedipine unless bps are consistently in the 140s. Patient voiced understanding. documented in this encounter Plan of Treatment [...] documented as of this encounter Care Teams Commercial Driver'S License Driver Relationship Specialty Start Date End Date Marge Woodard MD [address] [place] [address] PCP - General 10/31/24 Shiela Vela APRN [address] [place] [address] Referring Physician 10/31/24 documented as of this encounter
--- OUTSIDE RECORDS SUMMARY | 2025-02-11 09:33 | XMS_ITS | Encounter Summary ---
Author Organization [facility] Address [address] [place] [id number] Care Team Providers Care Senior Microsoft Consultant Name Role Phone Marge Woodard MD Primary Care Provider [phone] Shiela Vela ENVELOPE PATTERNMAKER Unavailable [phone] Encounter Details Date Type Department Care Team (Late st Contact Info) Description 12/24/2024 Orders Only Cardiothoracic Surgery [address] [place] [address] Chadwick Pedersen MD [address] [place] [address] Social History Tobacco Use Types Packs/Day Years [...] time in the past 12 m [facility], were you homeless or living in a fpc (including now)? No 12/18/2024 Utilities Answer Date Recorded In the past 12 months has th e [employer], gas, oil, or water company threatened to shut off services in your home? No 12/18/2024 Comments No Sex and Gender Information Value Date Recorded Sex Assigned at Not on file Legal Sex Female 1:50 PM EDT Gender Identity Not on file Sexual Orientation Not on file documented as of this encounter Miscellaneous Notes * Progress Notes - Chadwick Pedersen MD - 12/24/2024 9:58 AM EDT Pain med refill. Cosigned by Boris Al MD at 12/30/2024 2:38 PM EDT documented in this encounter Plan of Treatment [...] documented as of this encounter Care Teams Senior Microsoft Consultant Relationship Specialty Start Date End Date Marge Woodard MD [address] [place] [address] PCP - General 10/31/24 Shiela Vela APRN [address] [place] [address] Referring Physician 10/31/24 documented as of this encounter
--- OUTSIDE RECORDS SUMMARY | 2025-02-11 09:33 | XMS_ITS | Encounter Summary ---
Author Organization Healthcare Address [address] [place] [address] Care Team Providers Care Marriage And Family Counselor Name Role Phone Marge Woodard MD Primary Care Provider [phone] Shiela Vela DRYWALL CARRIER Unavailable [phone] Encounter Details Date Type Department Care Team (Late st Contact Info) Description 12/24/2024 Orders Only [facility] [address] [place] [address] Francisco Cates, PA [address] [place] [address] Social History Tobacco Use Types [...] any time in the past 12 m [facility], were you homeless or living in a care home (including now)? No 12/18/2024 Utilities Answer [...] documented as of this encounter Care Teams Marriage And Family Counselor Relationship Specialty Start Date End Date Marge Woodard MD [address] [place] [address] PCP - General 10/31/24 Shiela Vela APRN [address] [address] Referring Physician 10/31/24 documented as of this encounter
--- OUTSIDE RECORDS SUMMARY | 2025-02-11 09:33 | XMS_ITS | Encounter Summary ---
Author Organization Healthcare Address [address] [place] [address] Care Team Providers Care C[employer] Tractor Operator Name Role Phone Marge Woodard MD Primary Care Provider [phone] Shiela Vela L TACKER Unavailable [phone] Encounter Details Date Type Department Care Team (Late st Contact Info) Description 12/25/2024 Orders Only [facility] [address] [place] [address] Francisco Cates, PA [address] [place] [address] Social History Tobacco Use Types [...] any time in the past 12 m [facility], were you homeless or living in [...] documented as of this encounter Care Teams Caterpillar Tractor Operator Relationship Specialty Start Date End Date Marge Woodard MD [address] [place] [address] PCP - General 10/31/24 Shiela Vela APRN [address] [address] Referring Physician 10/31/24 documented as of this encounter
== END 2025-02-11 23:59 | disposition home or self-care (01) ==
LOC: RT 09:06
PROVIDERS: PCP Family Medicine; Visit Provider Nurse Practitioner Family
DX: I08.0 Rheumatic disorders of both mitral and aortic valves (principal); I50.20 Unspecified systolic (congestive) heart failure; R94.31 Abnormal electrocardiogram [ECG] [EKG]; I25.10 Atherosclerotic heart disease of native coronary artery without angina pectoris; Z95.1 Presence of aortocoronary bypass graft
CPT/HCPCS: 93306

== ENCOUNTER 2025-05-14 14:33 | Outpatient (CLI) | payer MEDICARE, SELFPAY ==
--- OUTSIDE RECORDS SUMMARY | 2017-08-23 09:33 | XMS_ITS | Encounter Summary ---
Author Organization [place] [place] [address] [place] [address] Care Team Providers Care Car Icer Name Role Phone Marge Woodard MD Primary Care Provider [phone] Encounter Details Date Type Department Care Team (Latest Contact Info) Description 08/23/2017 10:33 AM EDT Hospital Encounter [facility] Ref[facility] [address] [place], [place] [id number] Alhaji Rob PA-C [address] [place] [address] Presence of left artificial knee joint Social History Tobacco Use Types Packs/Day Years Used Date Smoking Tobacco: Every Day Cigarettes 1 50.8 Started: 07/29/1974 Smokeless Tobacco: Never Alcohol Use Standard Drinks/Week Comments No 0 (1 standard drink = 0.6 oz pur e alcohol) Comments No Sex and Gender Information Value Date Recorded Sex Assigned at Not on file Legal Sex Female 1:30 PM EDT Gender Identity Not on file Sexual Orientation Not on file COVID-19 Exposure Response Date Recorded In the last month, have you been in contact with someone who was confirmed or suspected to have Coronavirus / COVID-19? No / Unsure 10/11/2019 10:41 AM EDT documented as of this encounter Functional Status * Question Answer Date of Assessment Author Is the person deaf or does he/she have serious difficulty hearing? No 08/27/2017 10:10 AM Jacy Ace RN Is the person blind or does he/she have serious difficulty seeing even when wearing glasses? No 08/27/2017 10:10 AM Jacy Ace RN Does this person have seriou s difficulty walking or climbing stairs? No 08/27/2017 10:10 AM Jacy Ace RN Does this person have difficulty dressing or bathing? No 08/27/2017 10:10 AM Jacy Ace RN * Is the person deaf or does he/she have serious difficulty hearing? Answer Date of Assessment Author No 08/12/2017 10:25 AM Miley Cheatham RN * Is the person blind or does he/she have serious difficulty seeing even when wearing glasses? Answer Date of Assessment Author No 08/12/2017 10:25 AM Miley Cheatham RN * Does this person have serious difficulty walking or climbing stairs? Answer Date of Assessment Author No 08/12/2017 10:25 AM Miley Cheatham RN * Does this person have difficulty dressing or bathing? Answer Date of Assessment Author No 08/12/2017 10:25 AM Miley Cheatham RN * Because of a physical, mental or emotional condition, does this person have difficulty doing errands alone such as visiting a doctor's office or shopping? Answer Date of Assessment Author Yes 08/12/2017 10:25 AM Miley Cheatham RN documented as of this encounter Mental Status * Question Answer Entry Date Author Because of a physical, menta l or emotional condition, does this person have difficulty doing errands alone such as visiting a doctor's office or shopping? No 08/27/2017 10:10 AM Jacy Ace RN Because of a physical, menta l or emotional condition, does this person have serious difficulty concentrating, remembering or making decisions? No 08/27/2017 10:10 AM Jacy Ace RN * Because of a physical, mental or emotional condition, does this person have serious difficulty concentrating, remembering or making decisions? Answer Entry Date Author No 08/12/2017 10:25 Miley Crum, GIOVANNY documented in this encounter Plan of Treatment Scheduled Orders Name Type Priority Associated Diagnoses Orde r Schedule C-REACTIVE PROTEIN Lab Routine Presence of left artificial knee joint ONCE for 1 Occurrences starting 08/23/2017 until 09/27/2017 CBC WITH DIFF Lab Routine Presence of left artificial knee joint ONCE for 1 Occurrences starting 08/23/2017 until 09/27/2017 SEDIMENTATION RATE AUTOMATED Lab Routine Presence of left artificial knee joint ONCE for 1 Occurrences starting 08/23/2017 until 09/27/2017 documented as of this encounter Visit Diagnoses Diagnosis Presence of left artificial knee joint Knee joint replacement by other means documented in this encounter Care Teams Car Icer Relationship Specialty Start Date End Date Marge Woodard MD [address] [place] [address] PCP - General 07/02/09 documented as of this encounter
--- OUTSIDE RECORDS SUMMARY | 2025-05-14 14:35 | XMS_ITS | Clinical Summary ---
Author Organization Address [address] [place] [address] Care Team Providers Care In Service Educator Name Role Phone Marge Woodard MD Primary Care Provider [phone] Shiela Vela ENDOSCOPY SPECIALTY TECHNICIAN Unavailable [phone] Allergies Active Allergy Reactions Criticality Noted Date Comments Bupropion Other - please document in the comment field Low 11/07/2024 seizure Empagliflozin Dizziness Low 09/28/2022 Dizziness, falls Dizziness, falls Niacin Unknown - Patient states they do not know rxn details Low 11/07/2024 Poison Arianna Extract Other - please document in the comment field,Unknown - Patient states they do not know rxn details Low 03/19/2010 State allergic to poison arianna weed-causes blisters,oozing. [...] mouth 2 times a day. Active Tiotropium [place] Monohydrate (SPIRIVA HANDIHALER IN) Inhale 1 puff [...] Additional Information Patient not taking.Reported on 01/17/2025 ondansetron (Zofran) 4 MG tablet Take 1 [...] by mouth daily. 30 tablet 1 5 Active Additional Information Patient taking differently:40 mg Oral2 times daily (0900 & 1500), Reported on 01/17/2025 methocarbamol (Robaxin) 500 MG tablet Take 2 [...] nifedipine - goal SBP <140 CAD in [place] artery 12/17/2024 Assessment & Plan (12/18/2024 2:37 [...] (11/08/2024): Added automatically from request for surgery [id number] Depression 08/11/2017 Resolved Problems Problem Noted Date [...] PM EDT): -Diuresis Angina pectoris 11/07/2024 12/21/2024 Immunizations Immunization Administration Dates Next Due Influenza, [...] Date Smoking Tobacco: Every Day Cigarettes 0.5 51 Started: 1975 Smokeless Tobacco: Never Tobacco Cessation:Ready [...] past 12 months has th e electric, [place], oil, or water [employer] threatened to shut off services in your [...] Wellness (AWV) 1964 [facility]-/Child/Adol SDOH Screenings 1964 [id number] Vaccine (#1) 1964 Diabetes: Dental Exam 1974 [facility]-Zoster Vaccines (1 of 2) 1983 CT Colonography 2009 Colonoscopy 2009 FIT 2009 FOBT 2009 Sigmoidoscopy 2009 [facility]-Breast Cancer Screening 2014 [facility]-RSV Vaccine: 60+ Years or (1 - Risk 50-74 years 1-dose series) 2014 [facility]-Pneumococcal Vaccine: 50+ Years (3 of 3 - PCV) 09/26/2019 09/25/2018, 02/27/2007 [facility]-Influenza Vaccine (#1) 01/28/202503/09, 03/01/2017, 07/13/2016 [facility]-Diabetes: Hemoglobin A1C 06/12/2025 12/13/2024 [facility]- SDOH Screenings 06/20/2025 [facility]-Adult SDOH Screenings 06/20/2025 12/18/2024 FIT-DNA 06/30/2026 06/30/2023 [facility]-Colorectal Cancer Screening 06/30/2026 [facility]-DTaP,Tdap,and Td Vaccines (3 - Td or Tdap) 07/19/2032 07/19/2022, 03/10/2012 [facility]-Obesity Intervention Completed 025, 12/13/2024, 11/08/2024, Additional history exists HPV Vaccines (No Doses Required) Completed [facility]-HIB Vaccines Aged Out No longer e [...] Procedure Name Priority Date/Time Associated Diagnosis Comments HEMOGLOBIN A1C Routine 12/13/2024 12:42 PM EDT Coronary artery disease involving [place] coronary artery of [place] heart with angina pectoris (CMS/HCC) from Last 3 Months or Most Recently Relevant to Health Maintenance Results * (ABNORMAL) Hemoglobin A1c (12/13/2024 12:42 PM EDT) Hemoglobin A1c 5.8(H) <5.7 % 12/13/2024 3:57 PM EDT [facility] Blood Venous blood specimen / Unknown Venipuncture / Unknown 12/13/2024 12:42 PM EDT 12/13/2024 12:42 PM EDT Narrative [facility] - 12/13/2024 3:57 PM EDT HA1C Interpretive Data: Diagnosis of Diabetes: Diabetic > or = 6.5% Pre-diabetic 5.7 to 6.4% Non-diabetic < or = 5.6% Glycemic Targets for Type I and Type II Diabetics: Non- Adults <7.0% Adults <6.0% Children and Adolescents <7.5% Source: [place] [employer]. Standards of medical care in diabetes,2017. Diabetes Care.2017:40 (suppl 1):S1-S135. us Boris Al MD LAB BLOOD ORDERABLES Final R esult [facility] [address] [place] [address] from Last 3 Months or Most Recently Relevant to Health Maintenance [place] [address] [address] [place] [address] MEDICARE Advance Directives * Full Code (Latest Code Status on File) Date Activated Date Inactivated Comments 12/17/2024 3:05 PM 12/21/2024 2:06 PM Question Answer Comments Patient has decision-making capacity? Yes Care Teams In Service Educator Relationship Specialty Start Date End Date Marge Woodard MD [address] [place] [address] PCP - General 10/31/24 Shiela Vela APRN [address] [place] [address] Referring Physician 10/31/24
--- OUTSIDE RECORDS SUMMARY | 2025-05-14 14:35 | XMS_ITS | CCD ---
Author Organization Unknown Care Team Providers Care Airdox Fitter Name Role Phone Unavailable Primary Care Provider Unavailabl e Unavailable Chronic Care Management Unavaila ble Summary Purpose DataExchange Insurance Providers Payer name Policy type / Coverage type Covered alliance party ID Effective Begin Date Effective End Date MEDICARE [place] [id number] Unknown Unknown Family History Family History data not found Medication Administered No Medication Administered data Reason For Visit No Reason For Visit data Medical Equipment No Medical Equipment data Advance Directives No Advance Directive data
--- OUTSIDE RECORDS SUMMARY | 2025-05-14 14:36 | XMS_ITS | Encounter Summary ---
Author Organization [facility] Address [address] [place] [address] Care Team Providers Care Enamel Finisher Name Role Phone Marge Woodard MD Primary Care Provider Shady Knapp MD Unavailable [phone] Loyd Taylor MD Unavailable Lavonne Handley NP Unavailable [phone] Tashi Perez DO Unavailable [phone] Encounter Details Date Type Department Care Team (Latest Contact Info) Description 10/03/2023 Preop Surgical Orders [facility] [address] [place] [address] Medical Office Building [address] [place] [address] Lanie Naylor RN Severe mitral valve regurgitation (Primary Dx) [...] Primary documented in this encounter Care Teams Enamel Finisher Relationship Specialty Start Date End Date Marge Woodard MD [address] [place] [address] PCP - General Family Medicine 02/16/22 Shady Knapp MD [address] [place] [address] Internal Medicine 02/17/22 Loyd Taylor MD [address] [place], [place] [id number] Interventional Cardiology 02/23/22 Lavonne Handley NP [address] [place], [place] [id number] Nurse Practitioner Nurse Practitioner 03/02/22 Tashi Perez DO [address] [place] [address] Advanced Heart Failure/Transplant 07/01/22 documented as of this encounter
--- OUTSIDE RECORDS SUMMARY | 2025-05-14 14:36 | XMS_ITS | Encounter Summary ---
Author Organization [facility] Address [address] [place] [address] Care Team Providers Care Pig Farm Manager Name Role Phone Marge Woodard MD Primary Care Provider Shady Knapp MD Unavailable [phone] Loyd Taylor MD Unavailable Lavonne Handley NP Unavailable [phone] Tashi Perez DO Unavailable [phone] Reason for Visit * Reason Onset Date Comments Additional Information 2023 Encounter Details Date Type Department Care Team (Late st Contact Info) Description 2023 Telephone [place] [id number] [facility] Medical Office Building [address] [place] [address] [place] [address] [place] [address] Additional Information Social History Tobacco Use [...] on filedocumented in this encounter Care Teams Pig Farm Manager Relationship Specialty Start Date End Date Marge Woodard MD [address] [place] [address] PCP - General Family Medicine 02/16/22 Shady Knapp MD [address] [facility] [address] [place] [address] Internal Medicine 02/17/22 Loyd Taylor MD [address] [place] [address] [place] [address] Interventional Cardiology 02/23/22 Lavonne Handley NP [address] [place] [address] Nurse Practitioner Nurse Practitioner 03/02/22 Tashi Perez DO [address] [place] [address] Advanced Heart Failure/Transplant 07/01/22 documented as of this encounter
--- OUTSIDE RECORDS SUMMARY | 2025-05-14 14:36 | XMS_ITS | Encounter Summary ---
Author Organization [facility] Address [address] [place] [address] Care Team Providers Care Dusting And Brushing Machine Operator Name Role Phone Marge Woodard MD Primary Care Provider Shady Knapp MD Unavailable Loyd Taylor MD Unavailable Lavonne Handley NP Unavailable [phone] Tashi Perez DO Unavailable [phone] Encounter Details Date Type Department Care Team (Late st Contact Info) Description 03/15/2023 Orders Only Laboratory [address] [facility] [address] [place] [address] Tashi Perez DO [address] [facility]. [address] [place] [address] HFrEF (heart failure with reduced ejection fraction) [...] failure documented in this encounter Care Teams Dusting And Brushing Machine Operator Relationship Specialty Start Date End Date Marge Woodard MD [address] [place] [address] PCP - General Family Medicine 02/16/22 Shady Knapp MD [address] [facility] [address] [place] [address] Internal Medicine 02/17/22 Loyd Taylor MD [address] [place] [address] [place] [address] Interventional Cardiology 02/23/22 Lavonne Handley NP [address] [place], [place] [id number] Nurse Practitioner Nurse Practitioner 03/02/22 Tashi Perez DO [address] [place] [address] Advanced Heart Failure/Transplant 07/01/22 documented as of this encounter
--- OUTSIDE RECORDS SUMMARY | 2025-05-14 14:36 | XMS_ITS | Clinical Summary ---
Author Organization [facility] Address [address] [place] [address] Care Team Providers Care Comfort Station Supervisor Name Role Phone Marge Woodard MD Primary Care Provider Shady Knapp MD Unavailable Sylwia Taylor MD Unavailable Lavonne Handley NP Unavailable Tashi Perez DO Unavailable [phone] Allergies Active Allergy Reactions Criticality Noted Date [...] (ATIVAN) 0.5 mg tablet 02/15/20 Active sacubitriL-vals garciela (Entresto) 24-26 mg Tablet Take 1 Tablet [...] exacerbation 03/07/2023 Coronary artery disease invo lving [place] coronary artery of [place] heart without angina pectoris 07/01/2022 Assessment & [...] She has probable RCA territory infarct and PLUG STITCHER-RCA. There is tethering of the posterior MV [...] She has probable RCA territory infarct and PLUG STITCHER-RCA. There is tethering of the posterior MV [...] TTE LVEF 40-45% Jan 2022 CAD = PLUG STITCHER RCA Jan 2022 GDMT = BB, ARNi, MRA. 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 Check BMP today Hypoxia 02/17/2022 Chronic systolic HF (heart failure) 02/16/2022 Overview (02/19/2022): Added automatically from request for surgery [id number] Consolidation of right lower lobe of lung 2020 Anxiety 08/11/2017 CKD (chronic kidney disease) 08/11/2017 Bipolar affective disorder 08/11/2017 Diabetes mellitus 08/11/2017 Hyperlipidemia 08/11/2017 S/P total knee replacement, left 08/11/2017 Tobacco abuse 08/11/2017 Seizures 11/27/2012 Overview (02/17/2022): ICD-10 Transition Resolved Problems Problem Noted Date Diagnosed Date Resolved Date Acute respiratory failure with hypoxia 02/17/2022 04/16/2022 Encounters Date Type Department Care Team Description 03/14/2025 Telephone [facility] Physicians - Heart & Vascular, [facility] [address] [facility] [address] [place] [address] Tashi Perez, DO Other (Images requested) from Last 3 Months Family History Medical History Relation Name Comments [...] 10/03/2023 9:48 AM EDT Plan of Treatment Health Maintenance Due Date Last Done Comments Colonoscopy 1964 Diabetes Mellitus Eye Exam (Yearly) 1964 Diabetes Mellitus Foot Care (Yearly) 1964 FIT 1964 Tobacco Cessation Counseling 1976 Pneumococcal Vaccine: 50+ Ye ars (1 of 2 - PCV) 1983 Hepatitis C Virus (HCV) Screening 1985 Breast Cancer Screening 2014 RSV Vaccines (1 - Risk 50-74 years 1-dose series) 2014 Zoster-RZV(Shingrix) (1 of 2) 2014 Diabetes Mellitus Microalbum in (Yearly) 05/30/2024 COVID-19 Vaccine (1 - 2024-2 6 season) 2025 Influenza Vaccination (#1) 2025 Diabetes A1c Monitoring 06/15/2025 12/13/2024 Lipid Monitoring 12/19/2025 12/19/2024, 08/24/2023 Cologuard 06/30/2026 06/30/2023 Colorectal Cancer Screening 06/30/2026 Tetanus Vaccination (Every 1 0 Years) 07/19/2032 07/19/2022, 03/10/2012 Lung Cancer Screening Discontinued 07/13/2022 , 02/17/2022, 11/10/2020 Lipid Screening Discontinued 12/19/2024, 08/24/2023 Renal Monitoring Completed 12/21/2024, , 12/19/2024, Additional history exists Procedures Procedure Name Priority Date/Time Associated Diagnosis Comments RENAL PROFILE STAT 09/08/2023 2:43 PM EDT Decreased urination Urgency of urination LIPID PROFILE Routine 08/24/2023 9:[address]-CHEST W/O CONTRAST Routine 02/17/2022 3:17 PM EDT from Last 3 Months or Most Recently Relevant to Health Maintenance Results * (ABNORMAL) RENAL PROFILE (09/08/2023 2:43 PM EDT) [facility] Sodium 141 135 - 146 mmol/L [facility] Potassium 5.0 3.5 - 5.1 mmol/L [facility] Chloride 113(H) 98 - 110 mmol/L [facility] CO2 20(L) 22 - 29 mmol/L [facility] Anion Gap 8 5 - 13 mmol/L [facility] Comment:Anion gap calculatio n does not include potassium (K+) value. BUN 20 7 - 25 mg/dL [facility] Creatinine 0.86 0.50 - 1.20 mg/dL [facility] Glucose 92 71 - 99 mg/dL [facility] Comment:Reference range (71- 99 mg/dL) refers only to fasting samples, and does not apply to non-fasting samples. eGFR CKD-EPI 2020 78 See Note [facility] Comment: eGFR calculated with 2020 CKD-EPI equation using creatinine, patient's age and gender. Other factors, especially muscle mass, may affect accuracy and need to be considered. Patient values should be interpreted as a trend. The reference interval is >60 mL/min/1.73m2. Calcium 9.3 8.5 - 10.5 mg/dL [facility] Phosphorus 4.1 2.5 - 4.5 mg/dL [facility] Albumin 4.2 3.5 - 5.0 g/dL [facility] BUN/Creatinine Ratio 23 [facility] Serum 09/08/2023 2:43 PM EDT 09/08/2023 5:43 PM EDT us No [place] WOOD HEEL FITTER MACHINE CHEMISTRY ORDERABLES Final Result [facility] [address] * LIPID PROFILE (08/24/2023 9:04 AM EDT) Cholesterol 125 125 - 199 mg/dL [facility] Comment: TOTAL CHOLESTEROL INTERPRETATION: Less than 200 mg/dL Desireable 200-239 mg/dL Borderline Greater or Equal to 240 mg/dL High LDL Calculated 66 0 - 100 mg/dL [facility] Comment: LDL CHOLESTEROL INTERPRETATION: Less than 100 mg/dL Optimal 100-129 mg/dL Near optimal/above optimal 130-159 mg/dL Borderline High 160-189 mg/dL High Greater or Equal to 190 mg/dL Very High HDL 43 40 - 180 mg/dL [facility] Comment: HDL CHOLESTEROL INTERPRETATION: Less than 40 mg/dL Low Greater than 60 mg/dL Desirable Triglycerides 82 0 - 149 mg/dL [facility] Comment: TOTAL TRIGLYCERIDE INTERPRETATION: Less than 150 mg/dL Normal 150-199 mg/dL Borderline HIgh 200-499 mg/dL High Greater or Equal to 500 mg/dL Very High NONHDL Calculated 82 0 - 129 mg/dL [facility] Comment: NON-HDL INTERPRETATION: Less than 130 mg/dL Desirable 130-159 mg/dL Above Desirable 160-189 mg/dL Borderline High 190-219 mg/dL High Greater than or equal to 220 mg/dL Very High Plasma 08/24/2023 9:04 AM EDT 08/24/2023 9:43 AM EDT us Ty Marquez MD CHEMISTRY ORDERABLES Final Resul t [facility] [address] * CT-CHEST W/O CONTRAST (02/17/2022 3:17 [...] any thoracic lymphadenopathy. Signed By: Eliseo Wild Narrative 02/17/2022 4:[address] SCAN OF [...] Advance Directives For more information, please contact: [phone] * Full Code (Latest Code Status on File) Date Activated Date Inactivated Comments 08/24/2023 3:43 PM No automated c hest compression devices for VAD Patients * DNR Date Activated Date Inactivated Comments 02/17/2022 12:08 PM 08/24/2023 8:52 AM * Full Code Date Activated Date Inactivated Comments 02/17/2022 1:09 AM 02/17/2022 12:08 PM No automate d chest compression devices for VAD Patients Care Teams Comfort Station Supervisor Relationship Specialty Start Date End Date Marge Woodard MD [address] [place] [address] PCP - General Family Medicine 02/16/22 Shady Knapp MD [address] [place], [place] [address]. [address] [place] [address] Internal Medicine 02/17/22 Sylwia Taylor MD [address] [place] [address] [place] [address] Interventional Cardiology 02/23/22 Lavonne Handley NP [address] [place] [address] [place] [address] Nurse Practitioner Nurse Practitioner 03/02/22 Tashi Perez DO [address] [facility] [place] [address] Advanced Heart Failure/Transplant 07/01/22
--- OUTSIDE RECORDS SUMMARY | 2025-05-14 14:36 | XMS_ITS | Encounter Summary ---
Author Organization [facility] Address [address] [place] [address] Care Team Providers Care Product Marketing Programs Manager Name Role Phone Marge Woodard MD Primary Care Provider Sahdy Knapp MD Unavailable [phone] Loyd Taylor MD Unavailable Lavonne Handley NP Unavailable [phone] Tashi Perez DO Unavailable [phone] Reason for Visit * Reason Onset Date Comments Additional Information 06/06/2023 Regarding Encircle trial Encounter Details Date Type Department Care Team (Late st Contact Info) Description 06/06/2023 Telephone [facility] [address] [facility] Medical Office Building [address] [place] [address] Brittany Medeiros, RN [address] [place] [address] Additional Information (Regarding Encircle trial) Social [...] on filedocumented in this encounter Care Teams Product Marketing Programs Manager Relationship Specialty Start Date End Date Marge Woodard MD [address] [place] [address] PCP - General Family Medicine 02/16/22 Shady Knapp MD [address] [place] [address] Internal Medicine 02/17/22 Loyd Taylor MD [address] [address] [place] [address] Interventional Cardiology 02/23/22 Lavonne Handley NP [address] [place] [address] [place] [address] Nurse Practitioner Nurse Practitioner 03/02/22 [place] [address] [place] [address]. [address] [place] [address] Advanced Heart Failure/Transplant 07/01/22 documented as of this encounter
--- OUTSIDE RECORDS SUMMARY | 2025-05-14 14:36 | XMS_ITS | Encounter Summary ---
Author Organization [facility] Address [address] [place] [address] Care Team Providers Care Heel Edge Inker Machine Name Role Phone Marge Woodard MD Primary Care Provider Shady Knapp MD Unavailable [phone] Loyd Taylor MD Unavailable Lavonne Handley NP Unavailable [phone] Tashi Perez DO Unavailable [phone] Encounter Details Date Type Department Care Team (Late st Contact Info) Description 03/23/2023 Cardiology Conference [facility] [address] [place] [address] Medical Office Building [address] [place] [address] CenterLanie RN Social History Tobacco Use Types Packs/Day [...] on filedocumented in this encounter Care Teams Heel Edge Inker Machine Relationship Specialty Start Date End Date Marge Woodard MD [address] [place] [address] PCP - General Family Medicine 02/16/22 Shady Knapp MD [address] [place] [address] Internal Medicine 02/17/22 Loyd Taylor MD [address] [place] [address] [place] [address] Interventional Cardiology 02/23/22 Lavonne Handley NP [address] [place] [place] [address] [place] [address] Nurse Practitioner Nurse Practitioner 03/02/22 Tashi Perez DO [address] [place] [address] Advanced Heart Failure/Transplant 07/01/22 documented as of this encounter
--- OUTSIDE RECORDS SUMMARY | 2025-05-14 14:36 | XMS_ITS | Clinical Summary ---
Author Organization [facility] Address [address] [facility], [address] [place] [address] Care Team Providers Care Software Test Engineer Name Role Phone Marge Woodard MD Primary Care Provider [phone] Allergies Active Allergy Reactions Criticality Noted Date [...] by mouth 2 times daily. 56 Tab 8 Active Additional Information Patient not [...] x 4 for adhesions Heart murmur as infant Diverticulitis Post-operative nausea and vomiting Diabetes mellitus [...] 1 50.8 Started: 07/29/1974 Smokeless Tobacco: Never Tobacco Cessation:Ready [...] this topic Medical Devices Implanted Type Area Bridge Design Engineer Device Identifier Shelf Expiration Date Model / Serial / Lot Kidney Stents Component Femoral Cr Triathlon #4 Right - [id number] Implanted:Qty: 1 on 03/15/2017 by Augustin Khalil MD at [facility] Right: Knee PASCALE:ORTHOPEDI CS 01/12/2022 5517-F-402 / / [id number] Baseplate Tibial Tritanium Triathlon Size 4 - [id number] Implanted:Qty: 1 on 03/15/2017 by Augustin Khalil MD at [facility] Right: Knee PSACALE:ORTHOPEDI CS 02/23/2022 5536-B-400 / / [id number] Patella Backed Metal Tritanium Asymmetric A 35 X 10 - [id number] Implanted:Qty: 1 on 03/15/2017 by Augustin Khalil MD at [facility] Right: Knee PASCALE:ORTHOPEDI CS 10/25/2021 5552-L-350 / / [id number] Insert Bearing Tbial Cs Triathlon X3 Sz 4-9mm - [id number] Implanted:Qty: 1 on 03/15/2017 by Augustin Khalil MD at [facility] Right: Knee PASCALE:ORTHOPEDI CS 11/20/2021 5531-G-409 / / [id number] Triathlon Cr Fem Component - Beaded W/Pa - [id number] Implanted:Qty: 1 on 08/11/2017 by Augustin Khalil MD at [facility] Left: Knee PASCALE:ORTHOPEDI 04/24/2022 5517-F-401 / / [id number] Patella Backed Metal Tritanium Asymmetric A 35 X 10 - [id number] Implanted:Qty: 1 on 08/11/2017 by Augustin Khalil MD at [facility] Left: Knee PASCALE:ORTHOPEDI 02/23/2022 5552-L-350 / / [id number] Triathlon Tritanium Baseplate Size 4 - [id number] Implanted:Qty: 1 on 08/11/2017 by Augustin Khalil MD at [facility] Left: Knee PASCALE:ORTHOPEDI 05/14/2022 5536-B-400 / / [id number] Insert Bearing Tbial Cs Triathlon X3 Sz 4-9mm - [id number] Implanted:Qty: 1 on 08/11/2017 by Augustin Khalil MD at [facility] Left: Knee PASCALE:ORTHOPEDI 12/09/2021 [id number] / / [id number] Procedures Procedure Name Priority Date/Time Associated Diagnosis Comments BASIC METABOLIC PANEL STAT 08/25/2017 10:23 PM EDT HEMOGLOBIN A1C Routine 08/02/2017 10:36 AM EST Hyperglycemia from Last 3 Months or Most Recently Relevant to Health Maintenance Results * (ABNORMAL) BASIC METABOLIC PANEL (08/25/2017 10:23 PM EDT) Sodium 138 136 - 145 mmol/L 08/25/2017 10:53 PM EDT [facility] Potassium 4.4 3.5 - 5.0 mmol/L 08/25/2017 10:53 PM EDT [facility] Chloride 103 98 - 107 mmol/L 08/25/2017 10:53 PM EDT [facility] Total CO2 24 22 - 29 mmol/L 08/25/2017 10:53 PM EDT [facility] Anion Gap 11 7 - 16 mmol/L 08/25/2017 10:53 PM EDT [facility] Calcium 8.7 8.6 - 10.2 mg/dL 08/25/2017 10:53 PM EDT [facility] Glucose Lvl 101(H) 74 - 100 mg/dL 08/25/2017 10:53 PM EDT [facility] BUN 14 6 - 20 mg/dL 08/25/2017 10:53 PM EDT [facility] Creatinine 0.85 0.51 - 1.30 mg/dL 08/25/2017 10:53 PM EDT [facility] GFR Afr Am 90 mL/min/1.7 3 m2 08/25/2017 10:53 PM EDT [facility] GFR Non Afr Am 78 mL/min/1.7 3 m2 08/25/2017 10:53 PM EDT [facility] Comment: GFR Afr Am and GFR [...] Salvador MD CHEMISTRY ORDERABLES Final Resul t [facility] [address] [place] [id number] * HEMOGLOBIN A1C (08/02/2017 10:36 AM EST) Hgb A1C 6.2 <=7.0 % 08/02/2017 4:11 PM EST [facility] Est. Avg Glucose 131 mg/dL 08/02/2017 4:11 PM EST [facility] Blood VENOUS BLOOD / Unknown Venipuncture / Unknown 08/02/2017 10:36 AM EST 08/02/2017 10:48 AM EST Narrative [facility] - 08/02/2017 4:11 PM EST Reference Interval for Hgb A1c Hgb A1c Interpretation < 6.0 Non-Diabetic Range 6.0 - 7.0 ADA Therapeutic Target > 7.0 Action suggested us Augustin Khalil MD CHEMISTRY ORDERABLES Final R esult [facility] [address] [place] [address] from Last 3 Months or Most Recently Relevant to Health Maintenance Insurance MEDICARE [place] PART A AND B [facility] [place]ICARE [place] PART A AND B [facility] [id number] [facility] WELLCARE HMO MEDICARE [place] * Guarantor: Beverley Antoine Account Type Relation to Patient Date of Phone Billing Address [place] Personal Family Self Advance Directives For more information, please contact: [phone] * Full Code (Latest Code Status on File) Date Activated Date Inactivated Comments 08/11/2017 12:30 PM 08/12/2017 3:57 PM * Full Code Date Activated Date Inactivated Comments 03/15/2017 1:23 PM 03/16/2017 10:17 PM Care Teams Software Test Engineer Relationship Specialty Start Date End Date Marge Woodard MD [address] [place] [address] PCP - General 07/02/09
--- OUTSIDE RECORDS SUMMARY | 2025-05-14 14:36 | XMS_ITS ---
Author Organization [facility] Address [address] [place] [address] Care Team Providers Care Carrier Washer Name Role Phone Marge Woodard MD Primary Care Provider Shady Knapp MD Unavailable [phone] Loyd Taylor MD Unavailable Lavonne Handley NP Unavailable Tashi Perez DO Unavailable [phone] Active Problems Problem Noted Date Diagnosed Date Severe mitral valve regurgitation 10/03/2023 Severe mitral regurgitation 08/03/2023 Malignant neoplasm of right lung (CMS HCC) [place] 03/15/2023 Chronic obstructive pulmonar y disease with (acute) exacerbation 03/07/2023 Coronary artery disease invo lving [place] coronary artery of [place] heart without angina pectoris 07/01/2022 Assessment & [...] She has probable RCA territory infarct and LIQUOR CLERK-RCA. There is tethering of the posterior MV [...] She has probable RCA territory infarct and LIQUOR CLERK-RCA. There is tethering of the posterior MV [...] TTE LVEF 40-45% Jan 2022 CAD = LIQUOR CLERK RCA Jan 2022 GDMT = BB, ARNi, MRA. Intolerance to SGLT2i (dizziness and falls) Vol status = euvolemic ECG = NSR with LBBB < 150 ms -->BB, ARNi, MRA Assessment & Plan (07/01/2022 8:49 AM EST): Stage C, NYHA III (2/2 to lungs and cardiac limitation) TTE LVEF 40-45% Jan 2022 CAD = LIQUOR CLERK RCA Jan 2022 GDMT = BB, ARNi, MRA Vol status = euvolemic ECG = NSR with LBBB < 150 ms -->BB, ARNi, MRA -->add SGLT2i today. Check BMP today Hypoxia 02/17/2022 Chronic systolic HF (heart failure) 02/16/2022 Overview (02/19/2022): Added automatically from request for surgery [id number] Consolidation of right lower lobe of lung [...] Lifetime Dose Automatic Entry Manual Entr y Fluoro Time 18 minutes 0 minutes 18 minutes Cine Time 1,477 Frames 0 Frames 1,477 Frames DAP 74 Gy-cm2 0 Gy-cm2 74 Gy-cm2 Air Kerma 967 mGy-cm2 0 mGy-cm2 967 mGy-cm2 Resolved Problems Problem Noted Date Diagnosed Date Resolved Date Acute respiratory failure with hypoxia 02/17/2022 04/16/2022
--- OUTSIDE RECORDS SUMMARY | 2025-05-14 14:36 | XMS_ITS | Encounter Summary ---
Author Organization [facility] Address [address] [place] [address] Care Team Providers Care Special Inspector Name Role Phone Marge Woodard MD Primary Care Provider [phone] Shady Knapp MD Unavailable [phone] Loyd Taylor MD Unavailable Lavonne Handley NP Unavailable [phone] Tashi Perez DO Unavailable [phone] Encounter Details Date Type Department Care Team (Late st Contact Info) Description [address] Medical Office [address] [place] [address] Brittany Medeiros, RN [address] [place], [place] [id number] Social History Tobacco Use Types Packs/Day Years [...] on filedocumented in this encounter Care Teams Special Inspector Relationship Specialty Start Date End Date Marge Woodard MD [address] [place] [address] PCP - General Family Medicine 02/16/22 Shady Knapp MD [address] [place] [address] Internal Medicine 02/17/22 Loyd Taylor MD [address] [place] [address] [place] [address] Interventional Cardiology 02/23/22 Lavonne Handley NP [address] [place] [address] [place] [address] Nurse Practitioner Nurse Practitioner 03/02/22 Tashi Perez DO [address] [place] [address] Advanced Heart Failure/Transplant 07/01/22 documented as of this encounter
--- OUTSIDE RECORDS SUMMARY | 2025-05-14 14:36 | XMS_ITS | Encounter Summary ---
Author Organization [facility] Address [address] [place] [address] Care Team Providers Care Lubrication Worker Name Role Phone Marge Woodard MD Primary Care Provider Shady Knapp MD Unavailable [phone] Loyd Taylor MD Unavailable Lavonne Handley NP Unavailable [phone] Tashi Perez DO Unavailable [phone] Reason for Visit * Reason Onset Date Comments Pre-visit Planning 04/12/2022 Encounter Details Date Type Department Care Team (Late st Contact Info) Description 04/12/2022 Clinical Update [facility] Physicians - Heart & Vascular, [facility] [address] [facility] [address] [place] [address] Tiana Pritchard MA Pre-visit Planning [...] on filedocumented in this encounter Care Teams Lubrication Worker Relationship Specialty Start Date End Date Marge Woodard MD [address] [place] [address] PCP - General Family Medicine 02/16/22 Shady Knapp MD [address] [place] [address] Internal Medicine 02/17/22 Loyd Taylor MD [address] [place], [place] [address] Interventional Cardiology 02/23/22 Lavonne Handley NP [address] [place] [address] [place] [address] Nurse Practitioner Nurse Practitioner 03/02/22 Tashi Perez DO [address] [place] [address] Advanced Heart Failure/Transplant 07/01/22 documented as of this encounter
[2025-05-14 15:40] VITALS: PULSE 92; PULSE 95
[2025-05-14] MEDS: ALBUTEROL 0.083% 2.5 MG/3 ML NEB IH (15:40)
== END 2025-05-14 23:59 | disposition home or self-care (01) ==
LOC: RT 14:33
PROVIDERS: PCP Family Medicine; Visit Provider Internal Medicine Pulmonary Disease
DX: R06.09 Other forms of dyspnea (principal)
CPT/HCPCS: 94060; 94618; 94640; 94726; 94729